=== PATIENT | female | born 1985 | race Caucasian/White ===

== ENCOUNTER 2016-12-08 08:45 | Emergency (ER) | payer OTHER ==
[~2016-12-08] VITALS: Ht 152.4 cm; Wt 62.5 kg
[~2016-12-08 08:45] MED LIST: HYDR-3498 PO; HYDR200T5 PO; LEVO500T10 PO; MYCO500T13 PO; POTA-57 PO; PRED5 PO
[2016-12-08 08:56] VITALS: Ht 152.4 cm; Wt 62.5 kg
[2016-12-08 09:27] LABS: URINE BLOOD (Dip) POC Trace-lysed (NEGATIVE)
[2016-12-08] MEDS ORDERED: NITR-58 PO (09:32)
[2016-12-08] MEDS ORDERED: FLUC150T17 PO (09:33)
[2016-12-08] MEDS ORDERED: PHEN-537 PO (09:33)
--- NOTE | 2016-12-08 09:42 | ERD ---
ER Documentation Chief Complaint Date/Time DATE: 12/08/16 TIME: 09:35 Chief Complaint painful urination x 3 days HPI Patient is a 31-year-old female with a history of lupus who presents to the ER with dysuria, urgency and bloating for 2 days. Denies hematuria. Denies CVA tenderness. Denies fever or chills. States that her last normal menstrual period was 11/17/16. She denies sexual activity. States that she has had white discharge and discomfort in her vagina. Denies pelvic pain, abdominal pain, nausea, vomiting or diarrhea. Denies chest pain, cough, shortness of breath or difficulty breathing. Denies leg pain or swelling. Denies recent travel or recent surgeries. Denies abnormal vaginal bleeding. ROS All systems reviewed and are negative except as per history of present illness. Medications Home Meds Active Scripts Fluconazole* (Diflucan*) 150 Mg Tablet, 150 MG PO ONCE, #1 TAB Prov:JANELLE YOUSIF PA-C 12/08/16 Phenazopyridine Hcl* (Pyridium*) 100 Mg Tab, 100 MG PO TID for 7 Days, TAB Prov:JANELLE YOUSIF PA-C 12/08/16 Nitrofurantoin Monohyd Macrocr* (Macrobid*) 100 Mg Capsr, 100 MG PO BID for 5 Days, CAP Prov:JANELLE YOUSIF PA-C 12/08/16 Levofloxacin* (Levofloxacin*) 500 Mg Tablet, 500 MG PO DAILY for 7 Days, TAB Prov:MARIA DE JESUS GUTIERRES MD 09/02/16 Hydrocodone Bit-Acetaminophen (Hydrocodone Bit-APAP) 5-325MG Tablet, 2 TAB PO Q6H Y for SEVERE PAIN LEVEL 7-10 for 7 Days, #42 TAB Prov:MARIA DE JESUS GUTIERRES MD 09/02/16 Reported Medications Hydroxychloroquine Sulfate* (Plaquenil*) 200 Mg Tab, 200 MG PO BID, TAB 08/31/16 Potassium Chloride* (Klor-Con*) 20 Meq Tabsr, 50 MEQ PO DAILY, TAB.SA 08/31/16 Prednisone* (Prednisone*) 5 Mg Tab, 5 MG PO DAILY, TAB 08/31/16 Mycophenolate Mofetil* (Cellcept*) 500 Mg Tablet, 3000 MG PO DAILY, TAB 08/31/16 Allergies Allergies: Coded Allergies: No Known Drug Allergy (Verified Allergy, Mild, 12/08/16) PMhx/Soc History of Surgery: Yes ( 10/2011) Anesthesia Reaction: No Hx Neurological Disorder: No Hx Respiratory Disorders: No Hx Cardiac Disorders: Yes (LLE DVT) Hx Psychiatric Problems: Yes (Anxiety) Hx Miscellaneous Medical Probl: Yes (Anemia, Lupus) Hx Alcohol Use: Yes (Occasionally) Hx Substance Use: No Hx Tobacco Use: No Smoking Status: Never smoker FmHx Family History: No coronary disease, No diabetes, No other Physical Exam Vitals Vital Signs Date Time Temp Pulse Resp B/P Pulse Ox O2 Delivery O2 Flow Rate FiO2 12/08/16 08:56 98.1 87 18 115/72 98 Physical Exam GENERAL: Well-developed, well-nourished female. Appears in no acute distress. HEAD: Normocephalic, atraumatic. LUNG: Clear to auscultation bilaterally. No rhonchi, wheezing, rales or coarse breath sounds. HEART: Regular rate and rhythm. No murmurs, rubs or gallops. ABDOMEN: No scars, ecchymosis or rashes noted. Soft, nontender, and nondistended. Positive bowel sounds in all four quadrants. No rebound tenderness , no guarding. (-) McBurneys point tenderness. No CVA tenderness. : no lesions or signs of infection. no swelling or erythema. white cottage cheese like discharge from vagina. no adnexal tenderness. Extremities: Equal pulses bilaterally. No peripheral clubbing, cyanosis or edema. No unilateral leg swelling. Results 24 hrs Laboratory Tests Test 12/08/16 09:29 Bedside Urine Blood Trace-lysed Bedside Urine Glucose (UA) Negative Bedside Urine Ketones (LAB) Negative Bedside Urine Leukocyte Esterase (L 1+ Bedside Urine Nitrite (LAB) Negative Bedside Urine Protein (LAB) 2+ Bedside Urine pH (LAB) 6.5 Procedures/MDM ER COURSE: I kept the patient and/or family informed of laboratory and diagnostic imaging results throughout the emergency room course. LAB INTERPRETATION: UA showed no nitrites, 1+ leukocytes and 2+ proteins. Urine test was negative. MEDICAL DECISION MAKING: This is a 31-year-old female who presents with dysuria, urgency and vaginal discharge. Vital signs were reviewed. Patient is afebrile. Patient is not hypoxic. Patient is not toxic or ill-appearing. Patient has a UTI. Low suspicion for ovarian torsion, PID, tuboovarian abscess, ectopic , bowel obstruction, pyelonephritis, appendicitis, cervicitis, septic , molar . Patient also likely has vulvovaginitis likely coty. DIAGNOSIS: 1. UTI 2. vulvovaginitis candidiasis DISCHARGE: At this time, patient is stable for discharge and outpatient management with no new complaints during the ER course. Patient was sent home with extubated, Pyridium and Diflucan. Patient will be discharged home with instructions to recheck for new or worsening symptoms such as fever, nausea, weakness, LOC and to follow up with primary care in the next 1-2 days. Patient was advised to return to the ER for any new or worsening symptoms. Plan was discussed and patient and/or family understands and agrees. Home instructions were given. Departure Diagnosis: Primary Impression: Dysuria Additional Impression: Vulvovaginal candidiasis Condition: Stable Patient Instructions: Dysuria Additional Instructions: Call your primary care doctor TOMORROW for an appointment during the next 1-2 days.See the doctor sooner or return here if your condition worsens before your appointment time. JANELLE YOUSIF PA-C Dec 08, 2016 09:42
[2016-12-08 09:52] VITALS: BP 112/78; PULSE 78; RESP 18; TEMP 98.5
== END 2016-12-08 09:53 | disposition home or self-care (01) ==
LOC: FTE 08:45
DX: R30.0 Dysuria (principal); B37.3 Candidiasis of vulva and vagina
CPT/HCPCS: 81003; Z7502; 99284

== ENCOUNTER 2017-03-21 10:21 | Emergency (ER) | payer OTHER ==
[~2017-03-21] VITALS: Wt 72.0 kg
[~2017-03-21 10:21] MED LIST changes: +FLUC150T17 PO; +NITR-58 PO; +PHEN-537 PO
[2017-03-21] MEDS ORDERED: NAPROXEN 500 MG TAB PO ONE (11:30)
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
[2017-03-21] MEDS ORDERED: NAPR-260 PO (13:01)
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
== END 2017-03-21 13:31 | disposition home or self-care (01) ==
LOC: FTE 10:21
DX: M54.5 Low back pain (principal); M25.512 Pain in left shoulder; M25.562 Pain in left knee; M25.561 Pain in right knee; Z04.3 Encounter for examination and observation following other accident
CPT/HCPCS: 71010; 72100; 73030; Z7502; Z7610

== ENCOUNTER 2017-05-18 18:22 | Emergency (ER) | payer OTHER ==
[~2017-05-18] VITALS: Ht 162.6 cm; Wt 61.5 kg
[~2017-05-18 18:22] MED LIST changes: +NAPR-260 PO
[2017-05-18 18:24] VITALS: Ht 162.6 cm; Wt 61.5 kg
[2017-05-18] MEDS ORDERED: IBUPROFEN 600 MG TAB PO ONE (20:30)
[2017-05-18 21:11] LABS: ADD UMIC YES; UR ASCORBIC ACID 20 mg/dL (NEGATIVE); UR BILIRUBIN (Dip) NEGATIVE (NEGATIVE); UR BLOOD (Dip) 1+ mg/dL (NEGATIVE); UR CLARITY SLIGHTLY CLOUDY (CLEAR); UR COLOR AMBER (YELLOW); UR GLUCOSE (Dip) NEGATIVE (NEGATIVE); UR KETONES (Dip) NEGATIVE (NEGATIVE); UR LEUKOCYTE ESTERASE (Dip) NEGATIVE Leu/ul (NEGATIVE); UR NITRITE (Dip) POSITIVE (NEGATIVE); UR RBC 8 /HPF (0-5); UR SPECIFIC GRAVITY (Dip) 1.019 (1.003-1.030); UR SQUAMOUS EPITHELIAL CELL MODERATE /HPF (FEW); UR TOTAL PROTEIN (Dip) 3+ mg/dl (NEGATIVE); UR UROBILINOGEN (Dip) 2+ mg/dL (NEGATIVE)
[2017-05-18] MEDS ORDERED: CEPHALEXIN 500 MG CAP PO ONE (21:30)
[2017-05-18] MEDS ORDERED: IBUP-1542 PO (21:44)
[2017-05-18] MEDS ORDERED: CEPH-443 PO (21:44)
--- NOTE | 2017-05-18 21:47 | ERD ---
ER Documentation Chief Complaint Date/Time DATE: 05/18/17 TIME: 21:45 Chief Complaint pelvic pain x 2 days, back pain HPI This 32-year-old female presents cents with pelvic pain for last 2 days. It is suprapubic and mildly radiates the right and the left. Patient denies any localized right lower quadrant pain right upper quadrant pain. She denies any fevers, vomiting. Patient had a normal bowel movement. Patient still treated with 1 dose of antibiotics from her previous UTI without relief and took Tylenol with minimal relief. ROS All systems reviewed and are negative except as per history of present illness. Medications Home Meds Active Scripts Cephalexin* (Keflex*) 500 Mg Capsule, 500 MG PO QID for 5 Days, CAP Prov:STUART REEVES MD 05/18/17 Ibuprofen* (Motrin*) 600 Mg Tab, 600 MG PO Q6, #15 TAB Prov:STUART REEVES MD 05/18/17 Naproxen* (Naprosyn*) 500 Mg Tablet, 500 MG PO BID Y for PAIN AND/OR INFLAMMATION, #30 TAB Prov:JANELLE YOUSIFC 03/21/17 Fluconazole* (Diflucan*) 150 Mg Tablet, 150 MG PO ONCE, #1 TAB Prov:JANELLE YOUSIFC 12/08/16 Phenazopyridine Hcl* (Pyridium*) 100 Mg Tab, 100 MG PO TID for 7 Days, TAB Prov:JANELLE YOUSIFC 12/08/16 Nitrofurantoin Monohyd Macrocr* (Macrobid*) 100 Mg Capsr, 100 MG PO BID for 5 Days, CAP Prov:JANELLE YOUSIFC 12/08/16 Levofloxacin* (Levofloxacin*) 500 Mg Tablet, 500 MG PO DAILY for 7 Days, TAB Prov:MARIA DE EJSUS GUTIERRES MD 09/02/16 Hydrocodone Bit-Acetaminophen (Hydrocodone Bit-APAP) 5-325MG Tablet, 2 TAB PO Q6H Y for SEVERE PAIN LEVEL 7-10 for 7 Days, #42 TAB Prov:MARIA DE JESUS GUTIERRES MD 09/02/16 Reported Medications Hydroxychloroquine Sulfate* (Plaquenil*) 200 Mg Tab, 200 MG PO BID, TAB 08/31/16 Potassium Chloride* (Klor-Con*) 20 Meq Tabsr, 50 MEQ PO DAILY, TAB.SA 08/31/16 Prednisone* (Prednisone*) 5 Mg Tab, 5 MG PO DAILY, TAB 08/31/16 Mycophenolate Mofetil* (Cellcept*) 500 Mg Tablet, 3000 MG PO DAILY, TAB 08/31/16 Allergies Allergies: Coded Allergies: No Known Drug Allergy (Verified Allergy, Mild, 12/08/16) PMhx/Soc History of Surgery: Yes ( 10/2011) Anesthesia Reaction: No Hx Neurological Disorder: No Hx Respiratory Disorders: No Hx Cardiac Disorders: Yes (LLE DVT) Hx Psychiatric Problems: Yes (Anxiety) Hx Miscellaneous Medical Probl: Yes (Anemia, Lupus) Hx Alcohol Use: Yes (Occasionally) Hx Substance Use: No Hx Tobacco Use: No Smoking Status: Never smoker Physical Exam Vitals Vital Signs Date Time Temp Pulse Resp B/P Pulse Ox O2 Delivery O2 Flow Rate FiO2 05/18/17 18:24 99.8 98 20 109/68 100 Physical Exam Const: [] Alert, [id number] per Head: Atraumatic Eyes: Normal Conjunctiva ENT: Normal External Ears, Nose and Mouth. Neck: Full range of motion..~ No meningismus. Resp: Clear to auscultation bilaterally Cardio: Regular rate and rhythm, no murmurs Abd: Soft, non tender, non distended. Normal bowel sounds. Minimal suprapubic or lower pelvic tenderness without tenderness at McBurney's point and no rebound and no Pop sign. Skin: No petechiae or rashes Back: No midline or flank tenderness Ext: No cyanosis, or edema Neur: Awake and alert Psych: Normal Mood and Affect Results 24 hrs Laboratory Tests Test 05/18/17 20:30 Urine Color JASE Urine Clarity SLIGHTLY CLOUDY Urine pH 7.0 Urine Specific [place] 1.019 Urine Ketones NEGATIVEmg/dL Urine Nitrite POSITIVEmg/dL Urine Bilirubin NEGATIVEmg/dL Urine Urobilinogen 2+mg/dL Urine Leukocyte Esterase NEGATIVELeu/ul Urine Microscopic RBC 8/HPF Urine Microscopic WBC 7/HPF Urine Squamous Epithelial Cells MODERATE/HPF Urine Hemoglobin 1+mg/dL Urine Glucose NEGATIVEmg/dL Urine Total Protein 3+mg/dl Current Medications Medications (Trade) Dose Ordered Sig/Damaso Route PRN Reason Start Time Stop Time Status Last Admin Dose Admin Ibuprofen (Motrin) 600 mg ONCE ONCE PO 05/18/17 20:30 05/18/17 20:31 DC 05/18/17 20:55 Cephalexin (Keflex) 500 mg ONCE ONCE PO 05/18/17 21:30 05/18/17 21:31 DC 05/18/17 21:42 Procedures/MDM Pelvic ultrasound shows corpus luteum cyst without acute abnormalities. Urine shows positive leukocytes, nitrites and bacteria. HCG is negative. Patient was given ibuprofen and Keflex in the ED. Patient has pelvic pain of uncertain etiology. Urine was sent for gonorrhea chlamydia. Patient may have mittelschmerz as it is 2 weeks after her period. Patient will be discharged home with prescription ibuprofen and Keflex and instructed to recheck for fevers , vomiting, right upper quadrant abdominal pain, new worsening symptoms with primary care doctor this week. Current signs and symptoms do not suggest tubo- ovarian abscess, appendicitis, ovarian torsion, ectopic , acute abdomen , additional causes of acute pelvic pain. Departure Diagnosis: Primary Impression: UTI (urinary tract infection) Urinary tract infection type: acute cystitis Hematuria presence: without hematuria Qualified Code: N30.00 - Acute cystitis without hematuria Additional Impression: Acute pain in female pelvis Condition: Stable Patient Instructions: Understanding Urinary Tract Infections (UTIs), Pelvic Pain, Unknown Cause Additional Instructions: Ultrasound shows no acute abnormalities. Urine shows signs of infection. We will treat for this. Recheck for fevers, vomiting, pain in the right lower abdomen, new worsening symptoms STUART REEVES MD May 18, 2017 21:46
--- NOTE | 2017-05-18 22:08 | RADRPT ---
PROCEDURE: US Pelvis. CLINICAL INDICATION: Pelvic pain TECHNIQUE: Multiple sonographic images of the pelvis were obtained utilizing a transabdominal and endovaginal technique. The images were reviewed on a PACS workstation. COMPARISON: None available FINDINGS: Uterus: Normal in size, contour and echogenicity with no evidence for myometrial masses. Size is est imated at 7.4 x 5.4 x 4.5 cm. Cervix: No abnormalities of significance are seen. Endometrium: Normal in thickness for the patient's age; 13.9 mm. Heterogeneous echotexture with nor mal blood flow on Doppler interrogation. Right ovary / adnexa: Normal in size estimated at 3.1 x 2.2 x 2 cm. No evidence for masses, normal blood flow on Doppler interrogation. Simple appearing ovarian cyst measures approximately 2 cm poss ibly corpus luteum. Left ovary/adnexa: Normal in size estimated at 4.2 x 2.4 x 2.2 cm. No evidence for solid masses, no rmal blood flow on Doppler interrogation. Cul-de-sac: No evidence of free fluid. RPTAT:HJJR IMPRESSION: Approximately 2 cm right ovarian cyst, otherwise unremarkable pelvic ultrasound. Physician Amy Date Time Electronically viewed and signed by Physician Amy on 05/18/2017 22:08 JR/
== END 2017-05-18 22:10 | disposition home or self-care (01) ==
LOC: FTE 18:22
DX: N30.00 Acute cystitis without hematuria (principal)
CPT/HCPCS: 76830; 76856; 81001; 87086; 87591; Z7502; Z7610

== ENCOUNTER 2017-07-25 16:24 | Emergency (ER) | payer OTHER ==
[~2017-07-25] VITALS: Ht 152.4 cm; Wt 62.0 kg
[~2017-07-25 16:24] MED LIST changes: +BUTA1CAP39 PO; +CEPH-443 PO; +IBUP-1542 PO; +ONDA4TAB14 PO; -PRED5 PO; +PRED5TAB PO
[2017-07-25 16:33] VITALS: Ht 152.4 cm; Wt 62.0 kg
[2017-07-25] MEDS ORDERED: ONDANSETRON 4 MG INJ IV STA (18:04)
[2017-07-25] MEDS ORDERED: KETOROLAC 30 MG INJ IV STA (18:04)
--- NOTE | 2017-07-25 18:26 | ERD ---
ER Documentation Chief Complaint Date/Time DATE: 07/25/17 TIME: 18:24 Chief Complaint pt bib self with c/o headache x 1 wk, HPI 32-year-old female with history of lupus resents with headache for 1 week now. She describes as sharp, intermittent, mild to moderate with intermittent visual changes, she complains of blurry vision". She was seen on July [address] scan of the brain was negative for any acute abnormalities. She reports that she was previously taking losartan potassium 50 mg daily for her blood pressure, she ran out of the medication 2 weeks ago and has not been able to follow-up with her primary care doctor. She has been taking her lupus medications regularly. She reports having received a prescription for Fioricet but it made her too dizzy. ROS All systems reviewed and are negative except as per history of present illness. Medications Home Meds Active Scripts Losartan Potassium* (Losartan Potassium*) 50 Mg Tablet, 50 MG PO DAILY, #30 TAB Prov:LULU HALEY PA-C 07/25/17 Cholecalciferol* (Vitamin D*) 400 Unit Tablet, 800 UNIT PO DAILY, #60 TAB Prov:LULU HALEY PA-C 07/25/17 Ondansetron (Ondansetron Odt) 4 Mg Tab.rapdis, 4 MG PO Q8 Y for NAUSEA AND/OR VOMITING, #30 TAB Prov:DENIS BROWN NP 07/19/17 Cehqqladewwhq-Vpgqmcnefq-Wwbqwguh-Codeine* (Fioricet w/ Codeine*) [id number] 30MG Capsule, 1 CAP PO Q6H Y for PAIN LEVEL 1-5, #20 CAP Prov:DENIS BROWN NP 07/19/17 Cephalexin* (Keflex*) 500 Mg Capsule, 500 MG PO QID for 5 Days, CAP Prov:STUART REEVES MD 05/18/17 Ibuprofen* (Motrin*) 600 Mg Tab, 600 MG PO Q6, #15 TAB Prov:STUART REEVES MD 05/18/17 Naproxen* (Naprosyn*) 500 Mg Tablet, 500 MG PO BID Y for PAIN AND/OR INFLAMMATION, #30 TAB Prov:JANELLE YOUSIF PA-C 03/21/17 Fluconazole* (Diflucan*) 150 Mg Tablet, 150 MG PO ONCE, #1 TAB Prov:JANELLE YOUSIF PA-C 12/08/16 Phenazopyridine Hcl* (Pyridium*) 100 Mg Tab, 100 MG PO TID for 7 Days, TAB Prov:JANELLE YOUSIF PA-C 12/08/16 Nitrofurantoin Monohyd Macrocr* (Macrobid*) 100 Mg Capsr, 100 MG PO BID for 5 Days, CAP Prov:JANELLE YOUSIF PA-C 12/08/16 Levofloxacin* (Levofloxacin*) 500 Mg Tablet, 500 MG PO DAILY for 7 Days, TAB Prov:MARIA DE JESUS GUTIERRES MD 09/02/16 Hydrocodone Bit-Acetaminophen (Hydrocodone Bit-APAP) 5-325MG Tablet, 2 TAB PO Q6H Y for SEVERE PAIN LEVEL 7-10 for 7 Days, #42 TAB Prov:MARIA DE JESUS GUTIERRES MD 09/02/16 Reported Medications Hydroxychloroquine Sulfate* (Plaquenil*) 200 Mg Tab, 200 MG PO BID, TAB 08/31/16 Potassium Chloride* (Klor-Con*) 20 Meq Tabsr, 50 MEQ PO DAILY, TAB.SA 08/31/16 Prednisone* (Prednisone*) 5 Mg Tab, 5 MG PO DAILY, TAB 08/31/16 Mycophenolate Mofetil* (Cellcept*) 500 Mg Tablet, 3000 MG PO DAILY, TAB 08/31/16 Allergies Allergies: Coded Allergies: No Known Drug Allergy (Verified Allergy, Mild, 12/08/16) PMhx/Soc History of Surgery: Yes ( 10/2011) Anesthesia Reaction: No Hx Neurological Disorder: No Hx Respiratory Disorders: No Hx Cardiac Disorders: Yes (LLE DVT) Hx Psychiatric Problems: Yes (Anxiety) Hx Miscellaneous Medical Probl: Yes (Anemia,Lupus) Hx Alcohol Use: Yes (Occasionally) Hx Substance Use: No Hx Tobacco Use: No Physical Exam Vitals Vital Signs Date Time Temp Pulse Resp B/P Pulse Ox O2 Delivery O2 Flow Rate FiO2 07/25/17 16:33 98.3 64 16 114/64 98 Physical Exam General: Well-developed, well-nourished. The patient appears in no acute distress. HEENT: Head is normocephalic, atraumatic. Neck: Supple. Nontender. Lungs: Clear to auscultation. Normal air movement. Heart: Regular rate and rhythm. S1 and S2 are normal. No murmurs, gallops, or rubs. Abdomen: Soft, nontender, nondistended. Bowel sounds are normoactive. Extremities: No clubbing or cyanosis. Normal pulses. Moving extremities x 4. No weakness. Neuro: M/S: Alert and oriented Face: EOMI, CN II-XII grossly intact Motor: Normal strength throughout Sensation: Normal sensation throughout Speech: Normal Cerebel: Normal coordination Normal gait Normal finger to nose DTR: 2+ and symmetric upper/lower extremities Skin: Normal turgor. No rash or lesions. Result Diagram: 07/25/17181907/25/171819 Results 24 hrs Laboratory Tests Test 07/25/17 18:20 White Blood Count 6.010^3/ul Red Blood Count 3.7610^6/ul Hemoglobin 12.4g/dl Hematocrit 35.9% Mean Corpuscular Volume 95.5fl Mean Corpuscular Hemoglobin 33.0pg Mean Corpuscular Hemoglobin Concent 34.5g/dl Red Cell Distribution Width 12.7% Platelet Count 13633^3/UL Mean Platelet Volume 12.0fl Neutrophils % 66.4% Lymphocytes % 21.1% Monocytes % 10.1% Eosinophils % 1.8% Basophils % 0.3% Nucleated Red Blood Cells % 0.0/100WBC Neutrophils # 4.010^3/ul Lymphocytes # 1.310^3/ul Monocytes # 0.610^3/ul Eosinophils # 0.110^3/ul Basophils # 0.010^3/ul Nucleated Red Blood Cells # 0.010^3/ul Sodium Level 136mmol/L Potassium Level 3.6mmol/L Chloride Level 107mmol/L Carbon Dioxide Level 30mmol/L Anion Gap 3 Blood Urea Nitrogen 10mg/dl Creatinine 0.79mg/dl Glucose Level 92mg/dl Calcium Level 7.3mg/dl Current Medications Medications (Trade) Dose Ordered Sig/Damaso Route PRN Reason Start Time Stop Time Status Last Admin Dose Admin Sodium Chloride (NS) 1,000 ml @ 1,000 mls/hr Q1H ONCE IV 07/25/17 18:30 07/25/17 19:29 07/25/17 18:31 Ondansetron HCl (Zofran Inj) 4 mg ONCE STAT IV 07/25/17 18:04 07/25/17 18:07 DC 07/25/17 18:31 Ketorolac Tromethamine (Toradol) 30 mg ONCE STAT IV 07/25/17 18:04 07/25/17 18:07 DC 07/25/17 18:31 Procedures/MDM Course: Patient had an IV line established, she was given Toradol 30 mg IV, Zofran 4 mg IV fluid bolus normal saline 1 L. Medical decision makin-year-old female presents with headache for a week now, patient presents with likely migraine headache. She had a CT scan on the of this month that was unremarkable. She is concerned about her electrolytes because she has not been taking her lovastatin which also includes potassium him a patient's history includes hypo-kalemia, however her labs today are normal. She does have some mild hypocalcemia, she states she also ran out of her vitamin D so she will get a refill of this as well as her losartan. She was given Toradol, fluids and Zofran for symptoms are worse with feeling much better at this time is stable for discharge. I doubt subarachnoid hemorrhage, mass, intracranial hemorrhage, encephalitis, meningitis. Regarding her EMR, and her normal neurologic examination I do not believe the patient warrants a repeat scan of the head at this time Departure Diagnosis: Primary Impression: Headache Additional Impression: Medication refill Condition: LULU Seymour PA-C Jul 25, 2017 18:26
[2017-07-25] MEDS ORDERED: SOD CHLORIDE 0.9% 1,000 ML IV ONE (18:30)
[2017-07-25 18:32] LABS: BASOPHILS % 0.3 % (0.0-2.0); EOSINOPHILS # 0.1 10^3/ul (0.0-0.5); EOSINOPHILS % 1.8 % (0.0-7.0); HEMATOCRIT 35.9 % (37.0-47.0); HEMOGLOBIN 12.4 g/dl (12.0-16.0); LYMPHOCYTES # 1.3 10^3/ul (0.8-2.9); LYMPHOCYTES % 21.1 % (15.0-51.0); MEAN CORPUSCULAR HGB CONC 34.5 g/dl (32.0-37.0); MEAN CORPUSCULAR VOLUME 95.5 fl (82.0-101.0); MONOCYTE # 0.6 10^3/ul (0.3-0.9); MONOCYTES % 10.1 % (0.0-11.0); NEUTROPHILS % 66.4 % (39.0-77.0); PLATELET COUNT 109 10^3/UL (140-415); RED BLOOD COUNT 3.76 10^6/ul (4.20-5.40); RED CELL DISTRIBUTION WIDTH 12.7 % (11.5-14.5)
[2017-07-25 18:51] LABS: CALCIUM 7.3 mg/dl (8.4-10.2); CREATININE 0.79 mg/dl (0.44-1.00); POTASSIUM 3.6 mmol/L (3.5-5.1)
[2017-07-25] MEDS ORDERED: CHOL400T10 PO (19:04)
[2017-07-25] MEDS ORDERED: LOSA50TA6 PO (19:04)
== END 2017-07-25 19:35 | disposition home or self-care (01) ==
LOC: FTE 16:24
DX: R51 Headache (principal); Z76.0 Encounter for issue of repeat prescription
CPT/HCPCS: 80048; 85025; 96374; 96375; J1885; J2405; J7030; Z7502

== ENCOUNTER 2017-09-12 14:30 | Emergency (ER) | payer OTHER ==
[~2017-09-12] VITALS: Wt 66.3 kg
[~2017-09-12 14:30] MED LIST changes: +CHOL400T10 PO; +LOSA50TA6 PO
--- NOTE | 2017-09-12 15:23 | ERD ---
ER Documentation Chief Complaint Chief Complaint abd pain, soraya le pain denies trauma, bodyaches HPI 32-year-old female with a history of lupus presents emergency department for complaints of intermittent, burning and sharp epigastric pain which she rates currently as a 9 out of 10 with associated bloating 3 days. She denies fever, chills, nausea, vomiting, diarrhea. Her last bowel movement was this morning and normal for her. She denies any dysuria or hematuria. States she has attempted to treat her symptoms with Gas-X with minimal improvement. States she was recently treated for lupus and is currently on prednisone. ROS All systems reviewed and are negative except as per history of present illness. Medications Home Meds Active Scripts Ferrous Sulfate* (Ferrous Sulfate*) 325 Mg Tabec, 325 MG PO BID for 30 Days, TAB Prov:LUCAS TODD PA-C 09/12/17 Famotidine* (Pepcid*) 20 Mg Tablet, 20 MG PO BID for 4 Days, TAB Prov:LUCAS TODD PA-C 09/12/17 Ondansetron (Ondansetron Odt) 4 Mg Tab.rapdis, 4 MG PO Q6H Y for NAUSEA AND/OR VOMITING, #20 TAB Prov:LUCAS TODD PA-C 09/12/17 Omeprazole* (Omeprazole*) 20 Mg Capsule.dr, 20 MG PO BID, #20 Prov:LUCAS TODD PA-C 09/12/17 Losartan Potassium* (Losartan Potassium*) 50 Mg Tablet, 50 MG PO DAILY, #30 TAB Prov:LULU HALEY PA-C 07/25/17 Cholecalciferol* (Vitamin D*) 400 Unit Tablet, 800 UNIT PO DAILY, #60 TAB Prov:LULU HALEY PA-C 07/25/17 Ondansetron (Ondansetron Odt) 4 Mg Tab.rapdis, 4 MG PO Q8 Y for NAUSEA AND/OR VOMITING, #30 TAB Prov:DENIS BROWN NP 07/19/17 Xpkbunabwrioi-Xkcuzfeglv-Ujtbscvu-Codeine* (Fioricet w/ Codeine*) [id number] 30MG Capsule, 1 CAP PO Q6H Y for PAIN LEVEL 1-5, #20 CAP Prov:DENIS BROWN NP 07/19/17 Cephalexin* (Keflex*) 500 Mg Capsule, 500 MG PO QID for 5 Days, CAP Prov:STUART REEVES MD 05/18/17 Ibuprofen* (Motrin*) 600 Mg Tab, 600 MG PO Q6, #15 TAB Prov:STUART REEVES MD 05/18/17 Naproxen* (Naprosyn*) 500 Mg Tablet, 500 MG PO BID Y for PAIN AND/OR INFLAMMATION, #30 TAB Prov:JANELLE YOUSIFC 03/21/17 Fluconazole* (Diflucan*) 150 Mg Tablet, 150 MG PO ONCE, #1 TAB Prov:JANELLE YOUSIF PA-C 12/08/16 Phenazopyridine Hcl* (Pyridium*) 100 Mg Tab, 100 MG PO TID for 7 Days, TAB Prov:JANELLE YOUSIFC 12/08/16 Nitrofurantoin Monohyd Macrocr* (Macrobid*) 100 Mg Capsr, 100 MG PO BID for 5 Days, CAP Prov:JANELLE YOUSIFC 12/08/16 Levofloxacin* (Levofloxacin*) 500 Mg Tablet, 500 MG PO DAILY for 7 Days, TAB Prov:MARIA DE JESUS GUTIERRES MD 09/02/16 Hydrocodone Bit-Acetaminophen (Hydrocodone Bit-APAP) 5-325MG Tablet, 2 TAB PO Q6H Y for SEVERE PAIN LEVEL 7-10 for 7 Days, #42 TAB Prov:MARIA DE JESUS GUTIERRES MD 09/02/16 Reported Medications Hydroxychloroquine Sulfate* (Plaquenil*) 200 Mg Tab, 200 MG PO BID, TAB 08/31/16 Potassium Chloride* (Klor-Con*) 20 Meq Tabsr, 50 MEQ PO DAILY, TAB.SA 08/31/16 Prednisone* (Prednisone*) 5 Mg Tab, 5 MG PO DAILY, TAB 08/31/16 Mycophenolate Mofetil* (Cellcept*) 500 Mg Tablet, 3000 MG PO DAILY, TAB 08/31/16 Allergies Allergies: Coded Allergies: No Known Drug Allergy (Verified Allergy, Mild, 09/12/17) PMhx/Soc History of Surgery: Yes ( 10/2011) Anesthesia Reaction: No Hx Neurological Disorder: No Hx Respiratory Disorders: No Hx Cardiac Disorders: Yes (LLE DVT) Hx Psychiatric Problems: Yes (Anxiety) Hx Miscellaneous Medical Probl: Yes (Anemia,Lupus) Hx Alcohol Use: Yes (Occasionally) Hx Substance Use: No Hx Tobacco Use: No Physical Exam Vitals Vital Signs Date Time Temp Pulse Resp B/P Pulse Ox O2 Delivery O2 Flow Rate FiO2 09/12/17 14:32 98.3 76 20 143/99 99 Physical Exam Const: Developed, well-nourished, no acute distress Head: Atraumatic Eyes: Normal Conjunctiva ENT: Normal External Ears, Nose and Mouth. Neck: Full range of motion..~ No meningismus. Resp: Clear to auscultation bilaterally Cardio: Regular rate and rhythm, no murmurs Abd: Soft, non distended. Normal bowel sounds. Positive mild right upper quadrant tenderness to palpation. Negative McBurney's point tenderness. No rebound tenderness. No peritoneal signs. Skin: No petechiae or rashes Back: No midline or flank tenderness Ext: No cyanosis, or edema Neur: Awake and alert Psych: Normal Mood and Affect Result Diagram: 09/12/17 1610 09/12/17 1610 Results 24 hrs Laboratory Tests Test 09/12/17 15:05 09/12/17 16:10 Urine Color YELLOW Urine Clarity CLEAR Urine pH 6.0 Urine Specific Mutual 1.023 Urine Ketones NEGATIVEmg/dL Urine Nitrite NEGATIVEmg/dL Urine Bilirubin NEGATIVEmg/dL Urine Urobilinogen NEGATIVEmg/dL Urine Leukocyte Esterase NEGATIVELeu/ul Urine Microscopic RBC 15/HPF Urine Microscopic WBC 10/HPF Urine Squamous Epithelial Cells FEW/HPF Urine Hemoglobin 1+mg/dL Urine Glucose NEGATIVEmg/dL Urine Total Protein 3+mg/dl White Blood Count 7.010^3/ul Red Blood Count 3.2810^6/ul Hemoglobin 10.5g/dl Hematocrit 32.5% Mean Corpuscular Volume 99.1fl Mean Corpuscular Hemoglobin 32.0pg Mean Corpuscular Hemoglobin Concent 32.3g/dl Red Cell Distribution Width 13.6% Platelet Count 40008^3/UL Mean Platelet Volume 12.0fl Neutrophils % 70.7% Lymphocytes % 21.6% Monocytes % 7.6% Eosinophils % 0.0% Basophils % 0.0% Nucleated Red Blood Cells % 0.0/100WBC Neutrophils # 4.910^3/ul Lymphocytes # 1.510^3/ul Monocytes # 0.510^3/ul Eosinophils # 0.010^3/ul Basophils # 0.010^3/ul Nucleated Red Blood Cells # 0.010^3/ul Sodium Level 135mmol/L Potassium Level 4.0mmol/L Chloride Level 108mmol/L Carbon Dioxide Level 24mmol/L Anion Gap 7 Blood Urea Nitrogen 30mg/dl Creatinine 1.10mg/dl Glucose Level 95mg/dl Calcium Level 7.2mg/dl Total Bilirubin 0.0mg/dl Direct Bilirubin 0.00mg/dl Indirect Bilirubin 0.0mg/dl Aspartate Amino Transf (AST/SGOT) 18IU/L Alanine Aminotransferase (ALT/SGPT) 26IU/L Alkaline Phosphatase 55IU/L Total Protein 4.5g/dl Albumin 1.9g/dl Globulin 2.60g/dl Albumin/Globulin Ratio 0.73 Lipase 59U/L Current Medications Medications (Trade) Dose Ordered Sig/Damaso Route PRN Reason Start Time Stop Time Status Last Admin Dose Admin Miscellaneous Medication (Gi Cocktail (2)) 40 ml ONCE ONCE PO 09/12/17 15:30 09/12/17 15:31 DC 09/12/17 15:36 Acetaminophen/ Hydrocodone Bitart ([place] (5/325)) 1 tab ONCE ONCE PO 09/12/17 16:30 09/12/17 16:31 DC 09/12/17 16:23 Ondansetron HCl (Zofran Odt) 4 mg ONCE STAT ODT 09/12/17 16:16 09/12/17 16:17 DC 09/12/17 16:23 Procedures/MDM PROCEDURE: US Abdomen. CLINICAL INDICATION: abdominal pain TECHNIQUE: Multiple real-time images were acquired of the patient's right upper quadrant abdomen and retroperitoneum utilizing a high resolution transducer. COMPARISON: None FINDINGS: The liver demonstrates increase in echogenicity. The liver is normal in size and no focal solid lesions are seen. The liver measures 14.0 cm in length. The portal vein is patent with normal direction of flow. No intrahepatic biliary dilatation is seen. No gallstones are identified within the gallbladder. There is no pericholecystic fluid or gallbladder wall thickening. The common bile duct measures 3 mm in maximal dimension. Bases obscured by bowel gas. No free fluid is identified. The right kidney is normal in size, and demonstrate normal echogenicity and cortical thickness. The right kidney measures 11.3 cm in long dimension. There is no evidence of hydronephrosis. There are no kidney stones. RPTAT: KK IMPRESSION: Echogenic liver compatible with nonspecific parenchymal disease. No cholelithiasis or evidence for cholecystitis Physician Carina Date Time Electronically viewed and signed by Sean Marshall Physician on 09/12/2017 16 :20 ME/ CC: LUCAS TODD PA-C This is a 32-year-old female with a history of lupus who presents the emergency department for complaints of burning epigastric pain with associated bloating 3 days. Patient stated the pain is intermittent. Vital signs reviewed and within normal limits upon arrival. Patient denied fever chills nausea or vomiting associated with the pain. His equal exam with evidence of right upper quadrant tenderness to palpation. CBC showed no evidence of systemic infection or severe anemia. Patient with a hemoglobin measured at 10.5. She denies any active bleeding currently. Reports a history of anemia in the past. I will be treating her with ferrous sulfate and instructing her to follow-up with her primary care physician for repeat lab work studies. CMP showed no evidence of electrolyte abnormalities, severe acidosis, alkalosis , renal failure, or liver disease. Her creatinine slightly elevated. Lipase showed no evidence of acute pancreatitis. UA showed no evidence of acute infection. Hemoglobin 1+. Patient states she is due to start her menstrual cycle today. Urine test was negative. Ultrasound of the gallbladder negative for evidence of acute cholecystitis or renal calculi. History and physical exam consistent with anemia, burning epigastric abdominal pain, and bloating. Differential diagnosis includes but not limited to GERD, peptic ulcer disease, bleeding ulcer, cholecystitis, acute appendicitis, diverticulitis, pancreatitis, partial bowel obstruction, GI bleed, ectopic . CT of the abdomen was offered but joint decision was made to return home with strict return precautions. I recommended for the patient to return for a repeat abdominal exam in 8 hours if her symptoms should persist. I have recommended ferrous sulfate, antacid and nausea medication as well as hydration, rest, Motrin and Tylenol. Patient instructed to follow-up with primary care physician in 1-2 weeks for repeat laboratory exam. 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 I instructed for her to keep that appointment and recommended follow-up laboratory workup at that time to monitor her creatinine level. Return precautions discussed. Based on patient's history of present illness and physical examination the decision was made to discharge. The patient was re-evaluated after ED treatment and stabilizing measures, and symptoms have improved. There is no evidence of life threatening injuries or illnesses at this time. On re-examination, patient resting in no distress, stable vital signs, reports feeling better and safe for discharge with outpatient follow up with PMD in 1-2 days. Patient given return precautions. Departure Diagnosis: Primary Impression: Abdominal pain Abdominal location: epigastric Qualified Code: R10.13 - Epigastric pain LUCAS TODD PA-C Sep 12, 2017 15:23
[2017-09-12] MEDS ORDERED: LIDOCAINE/MYLANTA 40 ML BTL PO ONE (15:30)
[2017-09-12 16:05] LABS: ADD UMIC YES; UR ASCORBIC ACID NEGATIVE (NEGATIVE); UR BILIRUBIN (Dip) NEGATIVE (NEGATIVE); UR BLOOD (Dip) 1+ mg/dL (NEGATIVE); UR CLARITY CLEAR (CLEAR); UR COLOR YELLOW (YELLOW); UR GLUCOSE (Dip) NEGATIVE (NEGATIVE); UR KETONES (Dip) NEGATIVE (NEGATIVE); UR LEUKOCYTE ESTERASE (Dip) NEGATIVE Leu/ul (NEGATIVE); UR NITRITE (Dip) NEGATIVE (NEGATIVE); UR RBC 15 /HPF (0-5); UR SPECIFIC GRAVITY (Dip) 1.023 (1.003-1.030); UR SQUAMOUS EPITHELIAL CELL FEW /HPF (FEW); UR TOTAL PROTEIN (Dip) 3+ mg/dl (NEGATIVE); UR UROBILINOGEN (Dip) NEGATIVE (NEGATIVE)
[2017-09-12] MEDS ORDERED: ONDANSETRON (ODT) 4 MG TAB ODT STA (16:16)
--- NOTE | 2017-09-12 16:20 | RADRPT ---
PROCEDURE: US Abdomen. CLINICAL INDICATION: abdominal pain TECHNIQUE: Multiple real-time images were acquired of the patient's right upper quadrant abdomen a nd retroperitoneum utilizing a high resolution transducer. COMPARISON: None FINDINGS: The liver demonstrates increase in echogenicity. The liver is normal in size and no focal solid les ions are seen. The liver measures 14.0 cm in length. The portal vein is patent with normal direction of flow. No intrahepatic biliary dilatation is seen. No gallstones are identified within the gallbladder. There is no pericholecystic fluid or gallbladd er wall thickening. The common bile duct measures 3 mm in maximal dimension. Bases obscured by bowel gas. No free fluid is identified. The right kidney is normal in size, and demonstrate normal echogenicity and cortical thickness. The right kidney measures 11.3 cm in long dimension. There is no evidence of hydronephrosis. There are no kidney stones. RPTAT: KK IMPRESSION: Echogenic liver compatible with nonspecific parenchymal disease. No cholelithiasis or evidence for cholecystitis Physician Carina Date Time Electronically viewed and signed by Physician Carina on 09/12/2017 16:20 CO/
[2017-09-12 16:21] LABS: HEMATOCRIT 32.5 % (37.0-47.0); HEMOGLOBIN 10.5 g/dl (12.0-16.0); LYMPHOCYTES # 1.5 10^3/ul (0.8-2.9); LYMPHOCYTES % 21.6 % (15.0-51.0); MEAN CORPUSCULAR HGB CONC 32.3 g/dl (32.0-37.0); MEAN CORPUSCULAR VOLUME 99.1 fl (82.0-101.0); MONOCYTE # 0.5 10^3/ul (0.3-0.9); MONOCYTES % 7.6 % (0.0-11.0); NEUTROPHIL # 4.9 10^3/ul (1.6-7.5); NEUTROPHILS % 70.7 % (39.0-77.0); PLATELET COUNT 115 10^3/UL (140-415); RED BLOOD COUNT 3.28 10^6/ul (4.20-5.40); RED CELL DISTRIBUTION WIDTH 13.6 % (11.5-14.5)
[2017-09-12] MEDS ORDERED: HYDROCODONE/APAP (5/325) TAB PO ONE (16:30)
[2017-09-12 16:41] LABS: ALBUMIN 1.9 g/dl (3.3-4.9); ALBUMIN/GLOBULIN RATIO 0.73; CALCIUM 7.2 mg/dl (8.4-10.2); CREATININE 1.1 mg/dl (0.44-1.00); TOTAL PROTEIN 4.5 g/dl (6.1-8.1)
[2017-09-12] MEDS ORDERED: OMEP20CA16 PO (17:51)
[2017-09-12] MEDS ORDERED: FAMO-96 PO (17:51)
[2017-09-12] MEDS ORDERED: ONDA4TAB14 PO (17:51)
[2017-09-12] MEDS ORDERED: FER325 PO (17:56)
[2017-09-12 17:58] VITALS: BP 145/88; PULSE 78; RESP 18; TEMP 98.3
== END 2017-09-12 18:00 | disposition home or self-care (01) ==
LOC: FTE 14:30
DX: R10.13 Epigastric pain (principal)
CPT/HCPCS: 76705; 80053; 81001; 83690; 85025; Z7502; Z7610

== ENCOUNTER 2017-10-19 13:43 | Inpatient (IN) | payer OTHER ==
[~2017-10-19] VITALS: Ht 157.5 cm; Wt 69.7 kg
[~2017-10-19 13:43] MED LIST changes: +FAMO-96 PO; +FER325 PO; +OMEP20CA16 PO
[2017-10-19 13:45] VITALS: Ht 157.5 cm; Wt 69.7 kg
[2017-10-19] MEDS ORDERED: ONDANSETRON 4 MG INJ IV STA ×2 (15:21→18:12)
[2017-10-19] MEDS ORDERED: morphine 4 MG/ML VIAL IV STA ×2 (15:21→18:12)
[2017-10-19 15:26] LABS: BASOPHILS % 0.3 % (0.0-2.0); EOSINOPHILS # 0.1 10^3/ul (0.0-0.5); EOSINOPHILS % 1.3 % (0.0-7.0); HEMATOCRIT 28.5 % (37.0-47.0); HEMOGLOBIN 9.6 g/dl (12.0-16.0); LYMPHOCYTES # 1.8 10^3/ul (0.8-2.9); LYMPHOCYTES % 22.9 % (15.0-51.0); MEAN CORPUSCULAR HEMOGLOBIN 32.9 pg (29.0-33.0); MEAN CORPUSCULAR HGB CONC 33.7 g/dl (32.0-37.0); MEAN CORPUSCULAR VOLUME 97.6 fl (82.0-101.0); MEAN PLATELET VOLUME 11.3 fl (7.4-10.4); MONOCYTE # 0.8 10^3/ul (0.3-0.9); MONOCYTES % 10.5 % (0.0-11.0); NEUTROPHILS % 64.7 % (39.0-77.0); PLATELET COUNT 152 10^3/UL (140-415); RED BLOOD COUNT 2.92 10^6/ul (4.20-5.40); RED CELL DISTRIBUTION WIDTH 13.6 % (11.5-14.5); WHITE BLOOD COUNT 7.7 10^3/ul (4.8-10.8)
[2017-10-19 15:33] LABS: ADD UMIC YES; UR ASCORBIC ACID NEGATIVE (NEGATIVE); UR BILIRUBIN (Dip) NEGATIVE (NEGATIVE); UR BLOOD (Dip) 1+ mg/dL (NEGATIVE); UR CLARITY CLOUDY (CLEAR); UR COLOR YELLOW (YELLOW); UR GLUCOSE (Dip) NEGATIVE (NEGATIVE); UR KETONES (Dip) NEGATIVE (NEGATIVE); UR LEUKOCYTE ESTERASE (Dip) TRACE Leu/ul (NEGATIVE); UR NITRITE (Dip) NEGATIVE (NEGATIVE); UR RBC 16 /HPF (0-5); UR SQUAMOUS EPITHELIAL CELL FEW /HPF (FEW); UR TOTAL PROTEIN (Dip) 3+ mg/dl (NEGATIVE); UR UROBILINOGEN (Dip) NEGATIVE (NEGATIVE)
--- NOTE | 2017-10-19 15:42 | RADRPT ---
PROCEDURE: XR Chest. CLINICAL INDICATION: Shortness of breath TECHNIQUE: Single portable view of the chest was obtained COMPARISON: CR CHEST 03/21/2017; CR CHEST 04/05/2014; CR CHEST 02/11/2014 FINDINGS: The trachea is midline. The cardiac silhouette and pulmonary vascularity are within normal limits. T he lungs are clear. The costophrenic angles are sharp. IMPRESSION: 1. No evidence of acute cardiopulmonary disease. RPTAT: AAPP Physician Damián Date Time Electronically viewed and signed by Chrissie Storm Physician on 10/19/2017 15:42 JL/
[2017-10-19 15:47] LABS: ALBUMIN 1.6 g/dl (3.3-4.9); ALBUMIN/GLOBULIN RATIO 0.59; CALCIUM 6.8 mg/dl (8.4-10.2); CREATININE 1.77 mg/dl (0.44-1.00); POTASSIUM 4.3 mmol/L (3.5-5.1); TOTAL PROTEIN 4.3 g/dl (6.1-8.1)
--- NOTE | 2017-10-19 16:33 | RADRPT ---
PROCEDURE: CT ABDOMEN AND PELVIS WITHOUT CONTRAST. CLINICAL INDICATION: Abdominal pain TECHNIQUE: CT scan of the abdomen and pelvis without contrast was performed on a multidetector hig h-resolution CT scanner. The patient was scanned without intravenous contrast. Coronal and sagittal reformatted images were obtained from the axial source images. Images were reviewed on a high-resol [employer] PACS workstation. The total exam CTDI equals 12.9 mGy and the total exam DLP equals 655.3 mGy- cm. One or more of the following dose reduction techniques were used: Automated exposure control. Adjustment of the mA and/or kV according to patient size. Use of iterative reconstruction technique. DICOM images are available COMPARISON: None FINDINGS: CT abdomen: The lung bases are clear. The heart size is within limits. There is no significant pericardial effus ion. Hepatic morphology is within normal limits. No gross contour deforming masses. The gallbladder is wi thin normal limits. No evidence of intrahepatic or extrahepatic biliary dilatation. The spleen and pancreas are within normal limits. Both adrenal glands are within normal limits. Both kidneys are and normal anatomic position. No gross renal/ureteric calculi. No evidence of obstr uction or hydronephrosis. The visualized GI tract demonstrates normal caliber loops of small large bowel. No obstruction. The appendix is within normal limits. The unenhanced aorta is unremarkable. Several retroperitoneal lymph nodes are identified. CT pelvis: The bladder is within normal limits. The uterus is unremarkable. Nonspecific free fluid within pelvi s. The rectosigmoid colon demonstrate diverticulosis. There is generalized anasarca. Bilateral ingui nal lymphadenopathy is identified, with the largest on the left measuring up to 2.[address] large st on the right measuring up to 2.1 cm. Bilateral pelvic lymphadenopathy is noted as well, with the largest lymph node measuring 2.4 cm within the left external iliac chain. The visualized osseous structures appears to be within normal limits. IMPRESSION: 1. No evidence of acute intra-abdominal/pelvic inflammatory process. No evidence of bowel obstructio n. The appendix is within normal limits. 2. Generalized anasarca. 3. Bilateral pelvic and inguinal lymphadenopathy, with the largest lymph node measuring 2.1 cm withi n the bilateral inguinal regions and 2.4 cm along the left external iliac chain. Mild retroperitonea l lymphadenopathy is noted as well. Although findings may be reactive, cannot exclude the possibilit y of malignancy/lymphoma. Correlate with clinical findings. RPTAT: AAPP Chrissie Storm Physician Date Time Electronically viewed and signed by Chrissie Storm Physician on 10/19/2017 16:32 JL/
--- NOTE | 2017-10-19 16:43 | ERD ---
ER Documentation Chief Complaint Chief Complaint ap x weeks on and off HPI Is a 32-year-old female that presents to the ER with intermittent epigastric pain and bloating for the last month. Patient states that her stomach gets very bloated and she feels very full. She states that she even has difficulty in breathing because her stomach is so bloated. Patient was seen here a month ago and was given omeprazole, she said it helped with the epigastric pain, however she continues to remain bloated. Patient denies any chest pain. 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 Patient denies any nausea vomiting or diarrhea. She denies any fevers or chills. ROS 12 point review of systems was done, all negative except per HPI. Medications Home Meds Active Scripts Ferrous Sulfate* (Ferrous Sulfate*) 325 Mg Tabec, 325 MG PO BID for 30 Days, TAB Prov:LUCAS TODD PA-C 09/12/17 Famotidine* (Pepcid*) 20 Mg Tablet, 20 MG PO BID for 4 Days, TAB Prov:LUCAS TODD PA-C 09/12/17 Ondansetron (Ondansetron Odt) 4 Mg Tab.rapdis, 4 MG PO Q6H Y for NAUSEA AND/OR VOMITING, #20 TAB Prov:LUCAS TODD PA-C 09/12/17 Omeprazole* (Omeprazole*) 20 Mg Capsule.dr, 20 MG PO BID, #20 Prov:LUCAS TODD PA-C 09/12/17 Losartan Potassium* (Losartan Potassium*) 50 Mg Tablet, 50 MG PO DAILY, #30 TAB Prov:LULU HALEY PA-C 07/25/17 Cholecalciferol* (Vitamin D*) 400 Unit Tablet, 800 UNIT PO DAILY, #60 TAB Prov:LULU HALEY PA-C 07/25/17 Ondansetron (Ondansetron Odt) 4 Mg Tab.rapdis, 4 MG PO Q8 Y for NAUSEA AND/OR VOMITING, #30 TAB Prov:DENIS BROWN NP 07/19/17 Aboaupbjmxvlr-Wunwuakcpw-Mbwwtupn-Codeine* (Fioricet w/ Codeine*) [id number] 30MG Capsule, 1 CAP PO Q6H Y for PAIN LEVEL 1-5, #20 CAP Prov:DENIS BROWN NP 07/19/17 Cephalexin* (Keflex*) 500 Mg Capsule, 500 MG PO QID for 5 Days, CAP Prov:STUART REEVES MD 05/18/17 Ibuprofen* (Motrin*) 600 Mg Tab, 600 MG PO Q6, #15 TAB Prov:STUART REEVES MD 05/18/17 Naproxen* (Naprosyn*) 500 Mg Tablet, 500 MG PO BID Y for PAIN AND/OR INFLAMMATION, #30 TAB Prov:JANELLE YOUSIF-C 03/21/17 Fluconazole* (Diflucan*) 150 Mg Tablet, 150 MG PO ONCE, #1 TAB Prov:JANELLE YOUSIFC 12/08/16 Phenazopyridine Hcl* (Pyridium*) 100 Mg Tab, 100 MG PO TID for 7 Days, TAB Prov:JANELLE YOUSIF-C 12/08/16 Nitrofurantoin Monohyd Macrocr* (Macrobid*) 100 Mg Capsr, 100 MG PO BID for 5 Days, CAP Prov:JANELLE YOUSIF-C 12/08/16 Levofloxacin* (Levofloxacin*) 500 Mg Tablet, 500 MG PO DAILY for 7 Days, TAB Prov:MARIA DE JESUS GUTIERRES MD 09/02/16 Hydrocodone Bit-Acetaminophen (Hydrocodone Bit-APAP) 5-325MG Tablet, 2 TAB PO Q6H Y for SEVERE PAIN LEVEL 7-10 for 7 Days, #42 TAB Prov:MARIA DE JESUS GUTIERRES MD 09/02/16 Reported Medications Hydroxychloroquine Sulfate* (Plaquenil*) 200 Mg Tab, 200 MG PO BID, TAB 08/31/16 Potassium Chloride* (Klor-Con*) 20 Meq Tabsr, 50 MEQ PO DAILY, TAB.SA 08/31/16 Prednisone* (Prednisone*) 5 Mg Tab, 5 MG PO DAILY, TAB 08/31/16 Mycophenolate Mofetil* (Cellcept*) 500 Mg Tablet, 3000 MG PO DAILY, TAB 08/31/16 Allergies Allergies: Coded Allergies: No Known Drug Allergy (Verified Allergy, Mild, 10/19/17) PMhx/Soc History of Surgery: Yes ( 10/2011) Anesthesia Reaction: No Hx Neurological Disorder: No Hx Respiratory Disorders: No Hx Cardiac Disorders: Yes (LLE DVT) Hx Psychiatric Problems: Yes (Anxiety) Hx Miscellaneous Medical Probl: Yes (Anemia,Lupus) Hx Alcohol Use: Yes (Occasionally) Hx Substance Use: No Hx Tobacco Use: No Smoking Status: Never smoker Physical Exam Vitals Vital Signs Date Time Temp Pulse Resp B/P Pulse Ox O2 Delivery O2 Flow Rate FiO2 10/19/17 13:45 97.8 88 18 138/90 99 Physical Exam GENERAL: The patient is well developed and appropriate for usual state of health , in no apparent distress. HEENT: Atraumatic. Patient has erythema and dry skin to bilateral lower lobes. CHEST: Clear to auscultation bilaterally. There are no rales, wheezes or rhonchi. HEART: Regular rate and rhythm. No murmurs, clicks, rubs or gallops. ABDOMEN: Soft and distended. Good bowel sounds. No rebound or guarding. No gross peritonitis. No gross organomegaly or masses. No Pop sign or McBurney point tenderness. BACK: No midline or flank tenderness. NEURO: Alert and oriented. Cranial nerves II through XII are intact. Result Diagram: 10/19/17 1512 10/19/17 1512 Results 24 hrs Laboratory Tests Test 10/19/17 15:09 10/19/17 15:12 Urine Color YELLOW Urine Clarity CLOUDY Urine pH 6.0 Urine Specific [place] 1.020 Urine Ketones NEGATIVEmg/dL Urine Nitrite NEGATIVEmg/dL Urine Bilirubin NEGATIVEmg/dL Urine Urobilinogen NEGATIVEmg/dL Urine Leukocyte Esterase TRACELeu/ul Urine Microscopic RBC 16/HPF Urine Microscopic WBC 55/HPF Urine Squamous Epithelial Cells FEW/HPF Urine Hemoglobin 1+mg/dL Urine Glucose NEGATIVEmg/dL Urine Total Protein 3+mg/dl White Blood Count 7.710^3/ul Red Blood Count 2.9210^6/ul Hemoglobin 9.6g/dl Hematocrit 28.5% Mean Corpuscular Volume 97.6fl Mean Corpuscular Hemoglobin 32.9pg Mean Corpuscular Hemoglobin Concent 33.7g/dl Red Cell Distribution Width 13.6% Platelet Count 31240^3/UL Mean Platelet Volume 11.3fl Neutrophils % 64.7% Lymphocytes % 22.9% Monocytes % 10.5% Eosinophils % 1.3% Basophils % 0.3% Nucleated Red Blood Cells % 0.0/100WBC Neutrophils # 5.010^3/ul Lymphocytes # 1.810^3/ul Monocytes # 0.810^3/ul Eosinophils # 0.110^3/ul Basophils # 0.010^3/ul Nucleated Red Blood Cells # 0.010^3/ul Sodium Level 136mmol/L Potassium Level 4.3mmol/L Chloride Level 113mmol/L Carbon Dioxide Level 19mmol/L Anion Gap 8 Blood Urea Nitrogen 27mg/dl Creatinine 1.77mg/dl Glucose Level 80mg/dl Calcium Level 6.8mg/dl Total Bilirubin 0.0mg/dl Direct Bilirubin 0.00mg/dl Indirect Bilirubin 0.0mg/dl Aspartate Amino Transf (AST/SGOT) 21IU/L Alanine Aminotransferase (ALT/SGPT) 29IU/L Alkaline Phosphatase 54IU/L Total Protein 4.3g/dl Albumin 1.6g/dl Globulin 2.70g/dl Albumin/Globulin Ratio 0.59 Lipase 87U/L Current Medications Medications (Trade) Dose Ordered Sig/Damaso Route PRN Reason Start Time Stop Time Status Last Admin Dose Admin Morphine Sulfate (morphine) 4 mg ONCE STAT IV 10/19/17 15:21 10/19/17 15:22 DC 10/19/17 15:31 Ondansetron HCl (Zofran Inj) 4 mg ONCE STAT IV 10/19/17 15:21 10/19/17 15:22 DC 10/19/17 15:31 Departure Diagnosis: Primary Impression: Abdominal pain Condition: Stable BETO DIAZ Oct 19, 2017 16:43
[2017-10-19] MEDS ORDERED: LIDOCAINE/MYLANTA 40 ML BTL PO STA (18:12)
[2017-10-19] MEDS ORDERED: BELLADONNA/PHENOBARBITAL TAB PO STA (18:12)
--- NOTE | 2017-10-19 18:12 | ERD ---
ER Documentation Chief Complaint Chief Complaint ap x weeks on and off HPI This is a 32-year-old female presents to the emergency department complaining of epigastric pain has been intermittent for 1 month. Initially had been seen and evaluated in the emergency department the onset of her symptoms and was diagnosed with acute gastritis. She been given omeprazole which improved her symptoms. She states however that over the past several days the abdominal pain has significantly worsened with abdominal distention, and cramping diffuse pain. There is no alleviating or exacerbating factors. She has also been complaining of mild frequency urgency and dysuria. 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 She takes 5 mg of prednisone daily hydrochloride and vitamin D. She states she has had no swelling of her lower extremities. She has had generalized myalgias but no fevers or shaking or chills. She denies any chest pain or pressure that radiates the neck arm back or jaw. ROS All systems reviewed and are negative except as per history of present illness. Medications Home Meds Active Scripts Ferrous Sulfate* (Ferrous Sulfate*) 325 Mg Tabec, 325 MG PO BID for 30 Days, TAB Prov:LUCAS TODD PA-C 09/12/17 Famotidine* (Pepcid*) 20 Mg Tablet, 20 MG PO BID for 4 Days, TAB Prov:LUCAS TODD PA-C 09/12/17 Ondansetron (Ondansetron Odt) 4 Mg Tab.rapdis, 4 MG PO Q6H Y for NAUSEA AND/OR VOMITING, #20 TAB Prov:LUCAS TODD PA-C 09/12/17 Omeprazole* (Omeprazole*) 20 Mg Capsule.dr, 20 MG PO BID, #20 Prov:LUCAS TODD PA-C 09/12/17 Losartan Potassium* (Losartan Potassium*) 50 Mg Tablet, 50 MG PO DAILY, #30 TAB Prov:LULU HALEY PA-C 07/25/17 Cholecalciferol* (Vitamin D*) 400 Unit Tablet, 800 UNIT PO DAILY, #60 TAB Prov:LULU HALEY PA-C 07/25/17 Ondansetron (Ondansetron Odt) 4 Mg Tab.rapdis, 4 MG PO Q8 Y for NAUSEA AND/OR VOMITING, #30 TAB Prov:DNEIS BROWN NP 07/19/17 Jzvlmupebyxah-Shcuemcwwd-Nssetsnp-Codeine* (Fioricet w/ Codeine*) [id number] 30MG Capsule, 1 CAP PO Q6H Y for PAIN LEVEL 1-5, #20 CAP Prov:DENIS BROWN PERSONNEL COUNSELOR 07/19/17 Cephalexin* (Keflex*) 500 Mg Capsule, 500 MG PO QID for 5 Days, CAP Prov:STUART REEVES MD 05/18/17 Ibuprofen* (Motrin*) 600 Mg Tab, 600 MG PO Q6, #15 TAB Prov:STUART REEVES MD 05/18/17 Naproxen* (Naprosyn*) 500 Mg Tablet, 500 MG PO BID Y for PAIN AND/OR INFLAMMATION, #30 TAB Prov:JANELLE YOUSIF-C 03/21/17 Fluconazole* (Diflucan*) 150 Mg Tablet, 150 MG PO ONCE, #1 TAB Prov:JANELLE YOUSIFC 12/08/16 Phenazopyridine Hcl* (Pyridium*) 100 Mg Tab, 100 MG PO TID for 7 Days, TAB Prov:JANELLE YOUSIFC 12/08/16 Nitrofurantoin Monohyd Macrocr* (Macrobid*) 100 Mg Capsr, 100 MG PO BID for 5 Days, CAP Prov:JANELLE YOUSIFC 12/08/16 Levofloxacin* (Levofloxacin*) 500 Mg Tablet, 500 MG PO DAILY for 7 Days, TAB Prov:MARIA DE JESUS GUTIERRES MD 09/02/16 Hydrocodone Bit-Acetaminophen (Hydrocodone Bit-APAP) 5-325MG Tablet, 2 TAB PO Q6H Y for SEVERE PAIN LEVEL 7-10 for 7 Days, #42 TAB Prov:MARIA DE JESUS GUTIERRES MD 09/02/16 Reported Medications Hydroxychloroquine Sulfate* (Plaquenil*) 200 Mg Tab, 200 MG PO BID, TAB 08/31/16 Potassium Chloride* (Klor-Con*) 20 Meq Tabsr, 50 MEQ PO DAILY, TAB.SA 08/31/16 Prednisone* (Prednisone*) 5 Mg Tab, 5 MG PO DAILY, TAB 11/1/16 Mycophenolate Mofetil* (Cellcept*) 500 Mg Tablet, 3000 MG PO DAILY, TAB 08/31/16 Allergies Allergies: Coded Allergies: No Known Drug Allergy (Verified Allergy, Mild, 10/19/17) PMhx/Soc History of Surgery: Yes ( 10/2011) Anesthesia Reaction: No Hx Neurological Disorder: No Hx Respiratory Disorders: No Hx Cardiac Disorders: Yes (LLE DVT) Hx Psychiatric Problems: Yes (Anxiety) Hx Miscellaneous Medical Probl: Yes (Anemia,Lupus) Hx Alcohol Use: Yes (Occasionally) Hx Substance Use: No Hx Tobacco Use: No Smoking Status: Never smoker Physical Exam Vitals Vital Signs Date Time Temp Pulse Resp B/P Pulse Ox O2 Delivery O2 Flow Rate FiO2 10/19/17 17:49 98.0 88 18 132/90 100 Room Air 10/19/17 13:45 97.8 88 18 138/90 99 Physical Exam Constitutional:Well-developed. Well-nourished. HEENT:Normocephalic. Atraumatic.Pupils were equal round reactive to light. Moist mucous membranes.No tonsillar exudates. Neck: No nuchal rigidity. No lymphadenopathy. No posterior cervical spine tenderness or step-offs. Respiratory: Not using accessory muscles of respiration.Lungs were clear to auscultation bilaterally. No rhonchi. No rales. No wheezing. Cardiovascular: Regular rate regular rhythm.No murmurs. No rubs were appreciated.S1, S2 normal. Distal pulses are palpable 2+ bilaterally. GI: Abdomen was soft. Tenderness of the left lower quadrant with no rebound my no guarding and abdominal distention with no fluid thrill. No pulsatile abdominal masses or bruits. No rebound. No guarding. Bowel sounds were present and normal. Muscle skeletal: Full range of motion of both the upper and lower extremities bilaterally.Normal muscle tone.No assymetrical calf tenderness or swelling. Skin: No petechia, no purpura. No lesions on the palms or the soles of the feet. No maculopapular rash. NEURO: Patient was alert, awake, orientated x3.No facial droop. Gait observed and normal with no ataxia.Speech had regular rate and rhythm. No focal neurological deficits. Result Diagram: 10/19/17 1512 10/19/17 1512 Results 24 hrs Laboratory Tests Test 10/19/17 15:09 10/19/17 15:12 Urine Color YELLOW Urine Clarity CLOUDY Urine pH 6.0 Urine Specific [place] 1.020 Urine Ketones NEGATIVEmg/dL Urine Nitrite NEGATIVEmg/dL Urine Bilirubin NEGATIVEmg/dL Urine Urobilinogen NEGATIVEmg/dL Urine Leukocyte Esterase TRACELeu/ul Urine Microscopic RBC 16/HPF Urine Microscopic WBC 55/HPF Urine Squamous Epithelial Cells FEW/HPF Urine Hemoglobin 1+mg/dL Urine Glucose NEGATIVEmg/dL Urine Total Protein 3+mg/dl White Blood Count 7.710^3/ul Red Blood Count 2.9210^6/ul Hemoglobin 9.6g/dl Hematocrit 28.5% Mean Corpuscular Volume 97.6fl Mean Corpuscular Hemoglobin 32.9pg Mean Corpuscular Hemoglobin Concent 33.7g/dl Red Cell Distribution Width 13.6% Platelet Count 91251^3/UL Mean Platelet Volume 11.3fl Neutrophils % 64.7% Lymphocytes % 22.9% Monocytes % 10.5% Eosinophils % 1.3% Basophils % 0.3% Nucleated Red Blood Cells % 0.0/100WBC Neutrophils # 5.010^3/ul Lymphocytes # 1.810^3/ul Monocytes # 0.810^3/ul Eosinophils # 0.110^3/ul Basophils # 0.010^3/ul Nucleated Red Blood Cells # 0.010^3/ul Sodium Level 136mmol/L Potassium Level 4.3mmol/L Chloride Level 113mmol/L Carbon Dioxide Level 19mmol/L Anion Gap 8 Blood Urea Nitrogen 27mg/dl Creatinine 1.77mg/dl Glucose Level 80mg/dl Calcium Level 6.8mg/dl Total Bilirubin 0.0mg/dl Direct Bilirubin 0.00mg/dl Indirect Bilirubin 0.0mg/dl Aspartate Amino Transf (AST/SGOT) 21IU/L Alanine Aminotransferase (ALT/SGPT) 29IU/L Alkaline Phosphatase 54IU/L Total Protein 4.3g/dl Albumin 1.6g/dl Globulin 2.70g/dl Albumin/Globulin Ratio 0.59 Lipase 87U/L Current Medications Medications (Trade) Dose Ordered Sig/Damaso Route PRN Reason Start Time Stop Time Status Last Admin Dose Admin Morphine Sulfate (morphine) 4 mg ONCE STAT IV 10/19/17 15:21 10/19/17 15:22 DC 10/19/17 15:31 Ondansetron HCl (Zofran Inj) 4 mg ONCE STAT IV 10/19/17 15:21 10/19/17 15:22 DC 10/19/17 15:31 Procedures/MDM This patient presented to the emergency department with abdominal pain and was seen and evaluated by myself. My differential diagnosis included but was not limited to abdominal aortic aneurysm, appendicitis, pancreatitis, perforated peptic ulcer, perforated viscus, Boerhaaves syndrome or visceral pain such as diverticulitis, DKA, esophagitis, hepatitis or bowel obstruction. The patient was placed on a ekg monitor tech, continuous pulse oximetry, and IV access was established by nursing staff. She was given IV morphine and Zofran with no improvement of her symptoms. Therefore did feel is necessary to obtain a CT scan of the abdomen which indicated the following as this was reviewed by the radiologist and myself: 1. No evidence of acute intra-abdominal/pelvic inflammatory process. No evidence of bowel obstruction. The appendix is within normal limits. 2. Generalized anasarca. 3. Bilateral pelvic and inguinal lymphadenopathy, with the largest lymph node measuring 2.1 cm within the bilateral inguinal regions and 2.4 cm along the left external iliac chain. Mild retroperitoneal lymphadenopathy is noted as well. Although findings may be reactive, cannot exclude the possibility of malignancy/lymphoma. Correlate with clinical findings. The patient had a urinary tract infection with protein in her urine which could be concerning for lupus nephritis. Given the findings on the patient's CT scan with her clinical symptoms I did feel she required admission for observation for pain management and I did feel the patient's lymphadenopathy seen on the CT scan was more likely result of her nephritis versus a malignancy or lymphoma but this will be followed up with upon admission. The patient will be admitted to the hospitalist Dr. Hodgson for observation. Urine cultures and blood cultures were obtained and the patient did receive a dose of IV ceftriaxone. Departure Diagnosis: Primary Impression: Lupus nephritis Additional Impressions: Intractable abdominal pain Urinary tract infection Urinary tract infection type: acute cystitis Hematuria presence: without hematuria Qualified Code: N30.00 - Acute cystitis without hematuria Condition: Serious ROLA DANGELO Oct 19, 2017 18:12
[2017-10-19] MEDS ORDERED: ONDANSETRON 4 MG INJ IV PRN (18:30)
[2017-10-19] MEDS ORDERED: ACETAMINOPHEN 325 MG TAB PO PRN ×2 (18:30→19:00)
[2017-10-19] MEDS ORDERED: CEFTRIAXONE 1 GM/50 ML (PMX) 50 ML IVPB ONE (18:30)
[2017-10-19] MEDS ORDERED: DOCUSATE SODIUM 100 MG CAP PO PRN (19:00)
[2017-10-19] MEDS: CEFTRIAXONE 1 GM/50 ML (PMX) 50 ML IVPB SCH (19:00)
[2017-10-19] MEDS ORDERED: NACL 0.9% 3 ML SYG IV SCH (19:00)
[2017-10-19] MEDS ORDERED: LORAZEPAM 2 MG INJ IV PRN (19:00)
[2017-10-19] MEDS ORDERED: NA PHOSPHATE/BIPHOS 133 ML ENEMA PR PRN (19:00)
[2017-10-19] MEDS ORDERED: MAGNESIUM HYDROXIDE 30ML CUP PO PRN (19:00)
[2017-10-19] MEDS ORDERED: ALBUTEROL/IPRATROPIUM (NEB) 3 ML AMP HHN PRN (19:00)
[2017-10-19] MEDS ORDERED: NITROGLYCERIN (SL) 0.4 MG TAB SL PRN (19:00)
[2017-10-19] MEDS ORDERED: hydrALAzine 20 MG INJ IV PRN (19:00)
[2017-10-19] MEDS: HEPARIN 5,000 UNIT/0.5 ML VIAL SC SCH (20:30)
[2017-10-19] MEDS: SOD CHLORIDE 0.45% 1,000 ML IV SCH (20:36)
[2017-10-20 05:01] VITALS: TEMP 97.9
[2017-10-20 05:36] LABS: BASOPHILS % 0.3 % (0.0-2.0); EOSINOPHILS # 0.1 10^3/ul (0.0-0.5); EOSINOPHILS % 2.3 % (0.0-7.0); HEMATOCRIT 29.8 % (37.0-47.0); HEMOGLOBIN 9.7 g/dl (12.0-16.0); LYMPHOCYTES # 1.4 10^3/ul (0.8-2.9); LYMPHOCYTES % 22.1 % (15.0-51.0); MEAN CORPUSCULAR HEMOGLOBIN 32.1 pg (29.0-33.0); MEAN CORPUSCULAR HGB CONC 32.6 g/dl (32.0-37.0); MEAN CORPUSCULAR VOLUME 98.7 fl (82.0-101.0); MEAN PLATELET VOLUME 11.6 fl (7.4-10.4); MONOCYTE # 0.7 10^3/ul (0.3-0.9); MONOCYTES % 11.1 % (0.0-11.0); PLATELET COUNT 145 10^3/UL (140-415); RED BLOOD COUNT 3.02 10^6/ul (4.20-5.40); RED CELL DISTRIBUTION WIDTH 13.4 % (11.5-14.5); WHITE BLOOD COUNT 6.2 10^3/ul (4.8-10.8)
[2017-10-20 06:01] LABS: CALCIUM 6.9 mg/dl (8.4-10.2); CREATININE 1.67 mg/dl (0.44-1.00); MAGNESIUM 2.4 mg/dl (1.7-2.5); PHOSPHORUS 5.4 mg/dl (2.5-4.9); POTASSIUM 4.4 mmol/L (3.5-5.1)
[2017-10-20 06:07] VITALS: BP 121/75; PULSE 89; RESP 18
[2017-10-20] MEDS: PANTOPRAZOLE (EC) 40 MG TAB PO SCH (06:11)
[2017-10-20 06:25] LABS: CHOL/HDL RATIO 7.5 RATIO
[2017-10-20 06:53] LABS: THYROID STIMULATING HORMONE 12.7 MIU/L (0.465-4.680)
--- NOTE | 2017-10-20 06:59 | HP ---
Date/Time of Note Date/Time of Note DATE: 10/20/17 TIME: 06:53 Assessment/Plan Lines/Catheters Urinary Cath still in place: No Assessment/Plan Assessment/Plan 1. Epigastric abdominal pain: Likely from gastritis/PUD -CT abdomen/pelvis showed a bilateral pelvic and inguinal lymphadenopathy otherwise no acute findings -Lipase and LFTs within normal limits -She will be placed on PPI -We will consider GI consult if she continues to have pain 2. UTI -IV antibiotic -Follow-up culture results 3. Acute kidney injury -Possibly has a prerenal etiology as a result of decreased p.o. intake secondary to abdominal pain. Patient also was UTI. Lupus nephritis is also possibility given her history of SLE -IV fluid -Check urine electrolytes -Nephrology consult 4. History of lupus: On CellCept and prednisone -Continue meds 5. Metabolic acidosis, likely related to #3 and #2 -See above HPI/ROS Admit Date/Time Admit Date/Time Oct 19, 2017 at 18:15 Hx of Present Illness This is a 32-year-old female with a history of lupus CellCept and prednisone, anemia of chronic disease who presented to the ER complaining of abdominal pain and bloating x several weeks, worsening for the past 2 weeks. She also reported a bilateral lower extremity swelling. Pain is mainly localized in the epigastric area. She was seen in the ER last month and was diagnosed with gastritis and discharged with omeprazole. She said initially her abdominal pain was slightly better but recently she noticed progressively worsening symptoms and as such she decided to come to the ER for evaluation. She reported nausea but no vomiting. Denied fever/chills, shortness of breath, chest pain or urinary symptoms. Denied decreased urine output. As far as her lupus is concerned, she had left kidney biopsy several years ago and was told no kidney involvement. When she presented to the ER, initial vitals were stable. Labs shows a creatinine of 1.7, bicarb 19, glucose 80. Urinalysis consistent with UTI and also was 3+ protein. PMH/Family/Social Past Surgical History Past Surgical Hx: no surgical history Social History Smoking Status: Never smoker Exam/Review of Systems Vital Signs Vitals Vital Signs Date Time Temp Pulse Resp B/P Pulse Ox O2 Delivery O2 Flow Rate FiO2 10/20/17 06:07 97.5 89 18 121/75 100 Room Air Intake and Output 10/19/17 10/19/17 10/20/17 15:00 23:00 07:00 Intake Total 700 ml Balance 700 ml Labs Result Diagram: 10/20/1752310/20/17 05 Medications Medications Current Medications Ondansetron HCl (Zofran Inj) 4 mg Q6H PRN IV NAUSEA AND/OR VOMITING; Start at 19:00 Acetaminophen (Tylenol Tab) 650 mg Q6H PRN PO PAIN LEVEL 1-3 OR FEVER; Start 10/19/17 at 19:00 Acetaminophen/ Hydrocodone Bitart ([place] (5/325)) 1 tab Q6H PRN PO MODERATE PAIN LEVEL 4-6; Start 10/19/17 at 19:00 Morphine Sulfate (morphine) 2 mg Q4H PRN IV SEVERE PAIN LEVEL 7-10; Start at 19:00 Docusate Sodium (Colace) 100 mg Q12H PRN PO CONSTIPATION; Start 10/19/17 at 19 :00 Magnesium Hydroxide (Milk Of Mag) 30 ml DAILY PRN PO CONSTIPATION; Start 10/19 at 19:00 Sodium Biphosphate/ Sodium Phosphate (Fleet Enema) 133 ml DAILY PRN [place] CONSTIPATION; Start 10/19/17 at 19:00 Pantoprazole (Protonix Tab) 40 mg DAILY@06 PO Last administered on 10/20/17 06:11; Admin Dose 40 MG; Start 10/20/17 at 06:00 Heparin Sodium (Porcine) 5000 unit 5,000 unit Q12 SC Last administered on 10/19 20:30; Admin Dose 5,000 UNIT; Start 10/19/17 at 21:00 Sodium Chloride (1/2 NS) 1,000 ml @ 75 mls/hr [id number] IV Last administered on 10/19/17 20:36; Admin Dose 75 MLS/HR; Start 10/19/17 at 18:54 Lorazepam (Ativan) 0.5 mg Q6H PRN IV ANXIETY; Start 10/19/17 at 19:00 Hydralazine HCl 10 mg 10 mg Q6H PRN IV ELEVATED BLOOD PRESSURE; Start at 19:00 Ceftriaxone Sodium (Rocephin) 50 ml @ 100 mls/hr Q24H IVPB ; Start 10/19/17 at 19:00 Nitroglycerin (Nitroglycerin (Sl Tab) 0.4 Mg) 1 tab Q5M PRN SL ANGINA; Start 10/19/17 at 19:00 TERRI BISHOP MD Oct 20, 2017 06:59
[2017-10-20 07:35] VITALS: BP 116/79; RESP 16
[2017-10-20] MEDS: HEPARIN 5,000 UNIT/0.5 ML VIAL SC SCH ×2 (08:03→20:56)
[2017-10-20] MEDS: SOD CHLORIDE 0.45% 1,000 ML IV SCH ×3 (08:10→21:32)
--- NOTE | 2017-10-20 08:43 | CONS ---
Date/Time of Note Date/Time of Note DATE: 10/20/17 TIME: 08:43 Assessment/Plan Assessment/Plan Additional Assessment/Plan 1. Acute kidney injury due to Prerenal azotemia 2. Possible lupus nephritis 3. 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 Hypertension 5. LE edema Plan: Thanks for consultaiton, will order 24 hr urine collection for protein and cretinine clearance XAVIER< ANCA.< ESR, CRP, Hepatitis panel, HIV RENAL US continue IVF NS will continue to follo wup Consultation Date/Type/Reason Admit Date/Time Oct 19, 2017 at 18:15 Date of Consultation: Oct 20, 2017 Type of Consultation: NEPHROLOGY Reason for Consultation acute kidney injury, rule out lupus nephritis, Metabolic acidosis Referring Provider: TERRI BISHOP MD Hx of Present Illness 32-year-old female with a history of lupus CellCept and prednisone, anemia of chronic disease who presented to the ER complaining of abdominal pain and bloating x several weeks, worsening for the past 2 weeks. She also reported a bilateral lower extremity swelling. Pain is mainly localized in the epigastric area. She was seen in the ER last month and was diagnosed with gastritis and discharged with omeprazole. She said initially her abdominal pain was slightly better but recently she noticed progressively worsening symptoms and as such she decided to come to the ER for evaluation. She reported nausea but no vomiting. Denied fever/chills, shortness of breath, chest pain or urinary symptoms. Denied decreased urine output. As far as her lupus is concerned, she had left kidney biopsy several years ago and was told no kidney involvement. When she presented to the ER, initial vitals were stable. Labs shows a creatinine of 1.7, bicarb 19, glucose 80. Urinalysis consistent with UTI and also was 3+ protein.Renal has been consulted for PINKY with BUN 27/Cr 1.7 Constitutional: no complaints Eyes: no complaints ENT: no complaints Respiratory: no complaints Cardiovascular: no complaints Gastrointestinal: constipation, nausea, vomiting Genitourinary: no complaints Musculoskeletal: no complaints Skin: no complaints Neurologic: no complaints Endocrine: no complaints Lymphatic: no complaints Psychological: no complaints Immunologic: no complaints Past Medical History Medical History: other (Lupus ) Past Surgical History Past Surgical Hx: no surgical history Family History Significant Family History: no pertinent family hx Social History Alcohol Use: none Smoking Status: Never smoker Drug Use: none Exam/Review of Systems Vital Signs Vitals Vital Signs Date Time Temp Pulse Resp B/P Pulse Ox O2 Delivery O2 Flow Rate FiO2 10/20/17 07:35 98.4 90 16 116/79 100 10/20/17 06:07 Room Air Intake and Output 10/19/17 10/19/17 10/20/17 14:59 22:59 06:59 Intake Total 700 ml Balance 700 ml Exam Constitutional: alert Psych: no complaints Head: normocephalic Eyes: nl conjunctiva ENMT: nl external ears & nose Neck: supple Respiratory: clear to auscultation, diminished breath sounds, normal air movement Cardiovascular: nl pulses, regular rate and rhythm Gastrointestinal: non-tender, soft Musculoskeletal: nl gait and stance, swelling (2-3+) Neurological: ELECTROCARDIOGRAPH REPAIRER II-XII intact, nl mental status, nl speech, nl strength Results Result Diagram: 10/20/1724 10/20/1724 Results 24 hrs Laboratory Tests Test 10/19/17 15:09 10/19/17 15:12 10/19/17 15:14 10/20/17 05:24 Urine Color YELLOW Urine Clarity CLOUDY A Urine pH 6.0 Urine Specific [place] 1.020 Urine Ketones NEGATIVE Urine Nitrite NEGATIVE Urine Bilirubin NEGATIVE Urine Urobilinogen NEGATIVE Urine Leukocyte Esterase TRACE A Urine Microscopic RBC 16 H Urine Microscopic WBC 55 H Urine Squamous Epithelial Cells FEW Urine Hemoglobin 1+ H Urine Glucose NEGATIVE Urine Total Protein 3+ H White Blood Count 7.7 6.2 Red Blood Count 2.92 L 3.02 L Hemoglobin 9.6 L 9.7 L Hematocrit 28.5 L 29.8 L Mean Corpuscular Volume 97.6 98.7 Mean Corpuscular Hemoglobin 32.9 32.1 Mean Corpuscular Hemoglobin Concent 33.7 32.6 Red Cell Distribution Width 13.6 13.4 Platelet Count 152 # 145 Mean Platelet Volume 11.3 H 11.6 H Neutrophils % 64.7 64.0 Lymphocytes % 22.9 22.1 Monocytes % 10.5 11.1 H Eosinophils % 1.3 2.3 Basophils % 0.3 0.3 Nucleated Red Blood Cells % 0.0 0.0 Neutrophils # 5.0 4.0 Lymphocytes # 1.8 1.4 Monocytes # 0.8 0.7 Eosinophils # 0.1 0.1 Basophils # 0.0 0.0 Nucleated Red Blood Cells # 0.0 0.0 Sodium Level 136 136 Potassium Level 4.3 4.4 Chloride Level 113 H 116 H Carbon Dioxide Level 19 L 16 L Anion Gap 8 8 Blood Urea Nitrogen 27 H 27 H Creatinine 1.77 H 1.67 H Glucose Level 80 67 #L Calcium Level 6.8 L 6.9 L Total Bilirubin 0.0 L Direct Bilirubin 0.00 Indirect Bilirubin 0.0 Aspartate Amino Transf (AST/SGOT) 21 Alanine Aminotransferase (ALT/SGPT) 29 Alkaline Phosphatase 54 Total Protein 4.3 L Albumin 1.6 L Globulin 2.70 Albumin/Globulin Ratio 0.59 Lipase 87 Free Thyroxine 0.72 L Phosphorus Level 5.4 H Magnesium Level 2.4 Triglycerides Level 404 H Cholesterol Level 233 H LDL Cholesterol, Calculated 121 HDL Cholesterol 31 L Cholesterol/HDL Ratio 7.5 Thyroid Stimulating Hormone (TSH) 12.700 H Medications Medications Current Medications Ondansetron HCl (Zofran Inj) 4 mg Q6H PRN IV NAUSEA AND/OR VOMITING; Start at 19:00 Acetaminophen (Tylenol Tab) 650 mg Q6H PRN PO PAIN LEVEL 1-3 OR FEVER; Start 10/19/17 at 19:00 Acetaminophen/ Hydrocodone Bitart ([place] (5/325)) 1 tab Q6H PRN PO MODERATE PAIN LEVEL 4-6; Start 10/19/17 at 19:00 Morphine Sulfate (morphine) 2 mg Q4H PRN IV SEVERE PAIN LEVEL 7-10; Start at 19:00 Docusate Sodium (Colace) 100 mg Q12H PRN PO CONSTIPATION; Start 10/19/17 at 19 :00 Magnesium Hydroxide (Milk Of Mag) 30 ml DAILY PRN PO CONSTIPATION; Start 10/19 at 19:00 Sodium Biphosphate/ Sodium Phosphate (Fleet Enema) 133 ml DAILY PRN [place] CONSTIPATION; Start 10/19/17 at 19:00 Pantoprazole (Protonix Tab) 40 mg DAILY@06 PO Last administered on 10/20/17 06:11; Admin Dose 40 MG; Start 10/20/17 at 06:00 Heparin Sodium (Porcine) 5000 unit 5,000 unit Q12 SC Last administered on 10/20 08:03; Admin Dose 5,000 UNIT; Start 10/19/17 at 21:00 Sodium Chloride (1/2 NS) 1,000 ml @ 75 mls/hr [id number] IV Last administered on 10/19/17t 20:36; Admin Dose 75 MLS/HR; Start 10/19/17 at 18:54 Lorazepam (Ativan) 0.5 mg Q6H PRN IV ANXIETY; Start 10/19/17 at 19:00 Hydralazine HCl 10 mg 10 mg Q6H PRN IV ELEVATED BLOOD PRESSURE; Start at 19:00 Ceftriaxone Sodium (Rocephin) 50 ml @ 100 mls/hr Q24H IVPB ; Start 10/19/17 at 19:00 Nitroglycerin (Nitroglycerin (Sl Tab) 0.4 Mg) 1 tab Q5M PRN SL ANGINA; Start 10/19/17 at 19:00 Citric Acid/ Sodium Citrate (Bicitra) 30 ml TID PO ; Start 10/20/17 at 09:00; Status ARTURO SALAS MD Oct 20, 2017 08:43
[2017-10-20] MEDS: CITRIC ACID/SODIUM CITRATE 15 ML CUP PO SCH ×3 (09:00→20:55)
[2017-10-20] MEDS: HYDROCODONE/APAP (5/325) TAB PO PRN (10:01)
[2017-10-20 11:02] LABS: URIC ACID 7.2 mg/dl (3.1-7.9)
[2017-10-20 11:04] LABS: C-REACTIVE PROTEIN < 0.5 mg/dl (0.0-0.9)
[2017-10-20] MEDS: ONDANSETRON 4 MG INJ IV PRN ×2 (13:05→21:32)
[2017-10-20 13:37] LABS: POTASSIUM,URINE RANDOM 34.9 mmol/L (25-125)
[2017-10-20 14:43] VITALS: BP 105/62; RESP 16
[2017-10-20 19:48] VITALS: BP 114/59; RESP 14
[2017-10-20] MEDS: CEFTRIAXONE 1 GM/50 ML (PMX) 50 ML IVPB SCH (19:57)
[2017-10-21 02:00] VITALS: BP 116/74; RESP 16
[2017-10-21] MEDS: morphine 2 MG INJ IV PRN ×4 (02:08→20:05)
[2017-10-21] MEDS: SOD CHLORIDE 0.45% 1,000 ML IV SCH ×2 (02:11→10:54)
[2017-10-21] MEDS: PANTOPRAZOLE (EC) 40 MG TAB PO SCH (05:47)
[2017-10-21] MEDS: ONDANSETRON 4 MG INJ IV PRN (06:35)
[2017-10-21 07:05] LABS: BASOPHILS % 0.2 % (0.0-2.0); EOSINOPHILS # 0.1 10^3/ul (0.0-0.5); HEMATOCRIT 27.1 % (37.0-47.0); HEMOGLOBIN 8.7 g/dl (12.0-16.0); LYMPHOCYTES # 1.1 10^3/ul (0.8-2.9); LYMPHOCYTES % 25.9 % (15.0-51.0); MEAN CORPUSCULAR HEMOGLOBIN 32.2 pg (29.0-33.0); MEAN CORPUSCULAR HGB CONC 32.1 g/dl (32.0-37.0); MEAN CORPUSCULAR VOLUME 100.4 fl (82.0-101.0); MEAN PLATELET VOLUME 12.4 fl (7.4-10.4); MONOCYTE # 0.4 10^3/ul (0.3-0.9); NEUTROPHIL # 2.5 10^3/ul (1.6-7.5); NEUTROPHILS % 61.7 % (39.0-77.0); PLATELET COUNT 104 10^3/UL (140-415); RED CELL DISTRIBUTION WIDTH 13.5 % (11.5-14.5); WHITE BLOOD COUNT 4.1 10^3/ul (4.8-10.8)
[2017-10-21 07:25] LABS: CALCIUM 6.7 mg/dl (8.4-10.2); CREATININE 1.69 mg/dl (0.44-1.00); POTASSIUM 4.3 mmol/L (3.5-5.1)
[2017-10-21 07:46] VITALS: BP 113/62; RESP 18
[2017-10-21] MEDS: CITRIC ACID/SODIUM CITRATE 15 ML CUP PO SCH ×3 (09:24→20:03)
[2017-10-21] MEDS: HEPARIN 5,000 UNIT/0.5 ML VIAL SC SCH ×2 (09:30→20:19)
[2017-10-21] MEDS ORDERED: BACLOFEN 10 MG TAB PO ONE (12:30)
[2017-10-21 12:36] LABS: MYELOPEROXIDASE ANTIBODY <1.0 AI; PROTEINASE-3 ANTIBODY <1.0 AI
[2017-10-21 13:15] LABS: SCRET 1.69 mg/dl (0.44-1.00)
[2017-10-21 15:07] VITALS: BP 130/84; RESP 21
--- NOTE | 2017-10-21 15:37 | PN ---
Date/Time of Note Date/Time of Note DATE: 10/21/17 TIME: 15:31 Assessment/Plan VTE Prophylaxis VTE Prophylaxis Intervention: heparin Lines/Catheters IV [facility] Peripheral IV Urinary Cath still in place: No Assessment/Plan Chief Complaint/Hosp Course 1. Epigastric abdominal pain with nausea and vomiting-slightly improved -Possibly secondary to cystitis -CT abdomen/pelvis showed a bilateral pelvic and inguinal lymphadenopathy otherwise no acute findings -Lipase and LFTs within normal limits -Continue PPI for possible gastritis -Consider GI consult if she continues to have pain and nausea, advance diet 2. UTI -Continue Rocephin -Urine culture showing gram variable rods 3. Acute kidney injury -Rule out lupus nephritis -Nephrology consultation appreciated -Follow-up on urine electrolytes 4. History of lupus: On CellCept and prednisone -Continue meds 5. Metabolic acidosis, likely related to #3 and #2 -Monitor Prophylaxis: Heparin Problems: Subjective 24 Hr Interval Summary Musculoskeletal: other (Leg pain) Exam/Review of Systems Vital Signs Vitals Vital Signs Date Time Temp Pulse Resp B/P Pulse Ox O2 Delivery O2 Flow Rate FiO2 10/21/17 15:07 98.8 117 21 130/84 100 10/20/17 06:07 Room Air Intake and Output 10/20/17 10/20/17 10/21/17 15:00 23:00 07:00 Intake Total 300 ml 425 ml 850 ml Output Total 200 ml 100 ml Balance 300 ml 225 ml 750 ml Exam Constitutional: alert, oriented Respiratory: clear to auscultation Cardiovascular: regular rate and rhythm Gastrointestinal: soft, No distended Extremities: edema Results Result Diagram: 10/21/1717 10/21/17 0617 Results 24 hrs Laboratory Tests Test 10/21/17 06:17 10/21/17 11:37 White Blood Count 4.1 #L Red Blood Count 2.70 L Hemoglobin 8.7 L Hematocrit 27.1 L Mean Corpuscular Volume 100.4 Mean Corpuscular Hemoglobin 32.2 Mean Corpuscular Hemoglobin Concent 32.1 Red Cell Distribution Width 13.5 Platelet Count 104 #L Mean Platelet Volume 12.4 H Neutrophils % 61.7 Lymphocytes % 25.9 Monocytes % 10.0 Eosinophils % 2.0 Basophils % 0.2 Nucleated Red Blood Cells % 0.0 Neutrophils # 2.5 Lymphocytes # 1.1 Monocytes # 0.4 Eosinophils # 0.1 Basophils # 0.0 Nucleated Red Blood Cells # 0.0 Sodium Level 137 Potassium Level 4.3 Chloride Level 115 H Carbon Dioxide Level 18 L Anion Gap 8 Blood Urea Nitrogen 26 H Creatinine 1.69 H Glucose Level 57 #L Calcium Level 6.7 L Urine Random Creatinine 169.41 Urine Collection Duration 24 Urine Total Volume 24 Hours 550 Urine Creatinine Timed 24 Creatinine Clearance 38.3 L Urine Total Volume (Protein) 550 Urine Total Protein 24 Hour Medications Medications Current Medications Ondansetron HCl (Zofran Inj) 4 mg Q6H PRN IV NAUSEA AND/OR VOMITING Last administered on 10/21/17 06:35; Admin Dose 4 MG; Start 10/19/17 at 19:00 Acetaminophen (Tylenol Tab) 650 mg Q6H PRN PO PAIN LEVEL 1-3 OR FEVER Last administered on 10/20/17 15:45; Admin Dose 650 MG; Start 10/19/17 at 19:00 Acetaminophen/ Hydrocodone Bitart ([place] (5/325)) 1 tab Q6H PRN PO MODERATE PAIN LEVEL 4-6 Last administered on 10/20/17 10:01; Admin Dose 1 TAB; Start 10/19/17 at 19:00 Morphine Sulfate (morphine) 2 mg Q4H PRN IV SEVERE PAIN LEVEL 7-10 Last administered on 10/21/17 15:15; Admin Dose 2 MG; Start 10/19/17 at 19:00 Docusate Sodium (Colace) 100 mg Q12H PRN PO CONSTIPATION; Start 10/19/17 at 19 :00 Magnesium Hydroxide (Milk Of Mag) 30 ml DAILY PRN PO CONSTIPATION; Start 10/19 at 19:00 Sodium Biphosphate/ Sodium Phosphate (Fleet Enema) 133 ml DAILY PRN [place] CONSTIPATION; Start 10/19/17 at 19:00 Pantoprazole (Protonix Tab) 40 mg DAILY@06 PO Last administered on 10/21/17 05:47; Admin Dose 40 MG; Start 10/20/17 at 06:00 Heparin Sodium (Porcine) 5000 unit 5,000 unit Q12 SC Last administered on 10/21 09:30; Admin Dose 5,000 UNIT; Start 10/19/17 at 21:00 Sodium Chloride (1/2 NS) 1,000 ml @ 75 mls/hr [id number] IV Last administered on 10/21/17 02:11; Admin Dose 75 MLS/HR; Start 10/19/17 at 18:54 Lorazepam (Ativan) 0.5 mg Q6H PRN IV ANXIETY; Start 10/19/17 at 19:00 Hydralazine HCl 10 mg 10 mg Q6H PRN IV ELEVATED BLOOD PRESSURE; Start at 19:00 Ceftriaxone Sodium (Rocephin) 50 ml @ 100 mls/hr Q24H IVPB Last administered on 10/20/17 19:57; Admin Dose 100 MLS/HR; Start 10/19/17 at 19:00 Nitroglycerin (Nitroglycerin (Sl Tab) 0.4 Mg) 1 tab Q5M PRN SL ANGINA; Start 10/19/17 at 19:00 Citric Acid/ Sodium Citrate (Bicitra) 30 ml TID PO Last administered on 12:50; Admin Dose 30 ML; Start 10/20/17 at 09:00 JES ANDREWS Oct 21, 2017 15:37
[2017-10-21 16:00] VITALS: BP 128/80; PULSE 99
--- NOTE | 2017-10-21 16:06 | CONS ---
Date/Time of Note Date/Time of Note DATE: 10/21/17 TIME: 16:05 Assessment/Plan Assessment/Plan Additional Assessment/Plan 1. Acute kidney injury due to Prerenal azotemia 2. Possible lupus nephritis 3. 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 Hypertension 5. LE edema Plan: 24 hr urine collection done, report pending XAVIER< ANCA.< ESR, CRP, Hepatitis panel, HIV pending RENAL US ordered D/c IVF NS due to hyperchloremic metabolic acidosis, will plan for IV albumin + lasix diuresis after reviewing 24 hr urine report and other blood tests will continue to follow up Consultation Date/Type/Reason Admit Date/Time Oct 19, 2017 at 18:15 Initial Consult Date 10/20/17 Type of Consultation: NEPHROLOGY Referring Provider: TERRI BISHOP MD 24 HR Interval Summary Free Text/Dictation Cr 1.69, HCO3 19 , still c/o leg edema Exam/Review of Systems Vital Signs Vitals Vital Signs Date Time Temp Pulse Resp B/P Pulse Ox O2 Delivery O2 Flow Rate FiO2 10/21/17 15:07 98.8 117 21 130/84 100 10/20/17 06:07 Room Air Intake and Output 10/20/17 10/20/17 10/21/17 15:00 23:00 07:00 Intake Total 300 ml 425 ml 850 ml Output Total 200 ml 100 ml Balance 300 ml 225 ml 750 ml Exam Constitutional: alert Psych: no complaints Head: normocephalic Eyes: nl conjunctiva ENMT: nl external ears & nose Neck: non-tender, supple Respiratory: clear to auscultation, normal air movement Cardiovascular: nl pulses, regular rate and rhythm Gastrointestinal: non-tender, soft Musculoskeletal: nl extremities to inspection, swelling (2-3+ pitting edema ) Extremities: normal pulses Neurological: NATURAL RESOURCES EXTENSION EDUCATOR II-XII intact, nl mental status, nl speech, nl strength Skin: nl turgor Lymph: nl lymph nodes Results Result Diagram: 10/21/1761610/21/1717 Results 24 hrs Laboratory Tests Test 10/21/17 06:17 10/21/17 11:37 White Blood Count 4.1 #L Red Blood Count 2.70 L Hemoglobin 8.7 L Hematocrit 27.1 L Mean Corpuscular Volume 100.4 Mean Corpuscular Hemoglobin 32.2 Mean Corpuscular Hemoglobin Concent 32.1 Red Cell Distribution Width 13.5 Platelet Count 104 #L Mean Platelet Volume 12.4 H Neutrophils % 61.7 Lymphocytes % 25.9 Monocytes % 10.0 Eosinophils % 2.0 Basophils % 0.2 Nucleated Red Blood Cells % 0.0 Neutrophils # 2.5 Lymphocytes # 1.1 Monocytes # 0.4 Eosinophils # 0.1 Basophils # 0.0 Nucleated Red Blood Cells # 0.0 Sodium Level 137 Potassium Level 4.3 Chloride Level 115 H Carbon Dioxide Level 18 L Anion Gap 8 Blood Urea Nitrogen 26 H Creatinine 1.69 H Glucose Level 57 #L Calcium Level 6.7 L Urine Random Creatinine 169.41 Urine Collection Duration 24 Urine Total Volume 24 Hours 550 Urine Creatinine Timed 24 Creatinine Clearance 38.3 L Urine Total Volume (Protein) 550 Urine Total Protein 24 Hour Medications Medications Current Medications Ondansetron HCl (Zofran Inj) 4 mg Q6H PRN IV NAUSEA AND/OR VOMITING Last administered on 10/21/17 06:35; Admin Dose 4 MG; Start 10/19/17 at 19:00 Acetaminophen (Tylenol Tab) 650 mg Q6H PRN PO PAIN LEVEL 1-3 OR FEVER Last administered on 10/20/17 15:45; Admin Dose 650 MG; Start 10/19/17 at 19:00 Acetaminophen/ Hydrocodone Bitart ([place] (5/325)) 1 tab Q6H PRN PO MODERATE PAIN LEVEL 4-6 Last administered on 10/20/17 10:01; Admin Dose 1 TAB; Start 10/19/17 at 19:00 Morphine Sulfate (morphine) 2 mg Q4H PRN IV SEVERE PAIN LEVEL 7-10 Last administered on 10/21/17 15:15; Admin Dose 2 MG; Start 10/19/17 at 19:00 Docusate Sodium (Colace) 100 mg Q12H PRN PO CONSTIPATION; Start 10/19/17 at 19 :00 Magnesium Hydroxide (Milk Of Mag) 30 ml DAILY PRN PO CONSTIPATION; Start 10/19 at 19:00 Sodium Biphosphate/ Sodium Phosphate (Fleet Enema) 133 ml DAILY PRN [place] CONSTIPATION; Start 10/19/17 at 19:00 Pantoprazole (Protonix Tab) 40 mg DAILY@06 PO Last administered on 10/21/17 05:47; Admin Dose 40 MG; Start 10/20/17 at 06:00 Heparin Sodium (Porcine) 5000 unit 5,000 unit Q12 SC Last administered on 10/21 09:30; Admin Dose 5,000 UNIT; Start 10/19/17 at 21:00 Sodium Chloride (1/2 NS) 1,000 ml @ 75 mls/hr [id number] IV Last administered on 10/21/17 02:11; Admin Dose 75 MLS/HR; Start 10/19/17 at 18:54 Lorazepam (Ativan) 0.5 mg Q6H PRN IV ANXIETY; Start 10/19/17 at 19:00 Hydralazine HCl 10 mg 10 mg Q6H PRN IV ELEVATED BLOOD PRESSURE; Start at 19:00 Ceftriaxone Sodium (Rocephin) 50 ml @ 100 mls/hr Q24H IVPB Last administered on 10/20/17 19:57; Admin Dose 100 MLS/HR; Start 10/19/17 at 19:00 Nitroglycerin (Nitroglycerin (Sl Tab) 0.4 Mg) 1 tab Q5M PRN SL ANGINA; Start 10/19/17 at 19:00 Citric Acid/ Sodium Citrate (Bicitra) 30 ml TID PO Last administered on 12:50; Admin Dose 30 ML; Start 10/20/17 at 09:00 ARTURO AMADOR MD Oct 21, 2017 16:06
--- NOTE | 2017-10-21 16:30 | RADRPT ---
PROCEDURE: Renal US. CLINICAL INDICATION: Acute kidney injury. TECHNIQUE: Multiple sonographic images of the kidneys and urinary bladder were obtained. The imag es were reviewed on a PACS workstation. COMPARISON: CT scan of the abdomen and pelvis dated 10/19/2017. FINDINGS: The right kidney measures 9.4 cm. The left kidney measures 9.3 cm. There is no renal mass. There is no hydronephrosis. There is no renal calculus. Renal parenchymal thickness is normal bilaterally. Echogenicity is normal bilaterally. The perirenal regions are normal with no fluid collection or mass. The urinary bladder is unremarkable. IMPRESSION: 1. Unremarkable renal ultrasound. 2. No hydronephrosis. RPTAT: QQ .Bruce Barragan MD, Date Time Electronically viewed and signed by .Bruce Barragan MD, on 10/21/2017 16:30 .R/
--- NOTE | 2017-10-21 16:45 | RADRPT ---
PROCEDURE: US bilateral lower extremity veins. CLINICAL INDICATION: Bilateral leg pain and swelling. TECHNIQUE: Multiple longitudinal and transverse images of the bilateral lower extremity veins were obtained with pressley scale and color Doppler imaging. The common femoral vein, femoral vein, and popl iteal vein were evaluated. 2D grayscale measurements with compression sonography, color Doppler, and pulsed Doppler with augmentation. COMPARISON: No prior studies are available for comparison. FINDINGS: The bilateral common femoral, femoral and popliteal veins are normally compressible throughout. Col or flow demonstrates normal filling of the vessels. Normal waveforms are visualized and there is no rmal response to augmentation. IMPRESSION: 1. No evidence of deep vein thrombosis involving either lower extremity. RPTAT: QQ .Bruce Barragan MD, MD Date Time Electronically viewed and signed by .Bruce Barragan MD, on 10/21/2017 16:44 .R/
[2017-10-21 18:31] LABS: ANA SCREEN POSITIVE (NEGATIVE)
[2017-10-21] MEDS: CEFTRIAXONE 1 GM/50 ML (PMX) 50 ML IVPB SCH (19:04)
[2017-10-21 19:18] VITALS: BP 126/82; RESP 16; RESP 26
[2017-10-22] MEDS: morphine 2 MG INJ IV PRN ×3 (01:41→17:55)
[2017-10-22] MEDS: ONDANSETRON 4 MG INJ IV PRN (01:59)
[2017-10-22 02:00] VITALS: BP 125/74; RESP 16
[2017-10-22] MEDS: PANTOPRAZOLE (EC) 40 MG TAB PO SCH (05:59)
[2017-10-22 06:26] LABS: HAAIG REFLEX REFLEX FILED
[2017-10-22 06:43] LABS: BASOPHILS % 0.4 % (0.0-2.0); EOSINOPHILS # 0.1 10^3/ul (0.0-0.5); EOSINOPHILS % 2.1 % (0.0-7.0); HEMATOCRIT 26.2 % (37.0-47.0); HEMOGLOBIN 8.5 g/dl (12.0-16.0); LYMPHOCYTES # 1.3 10^3/ul (0.8-2.9); LYMPHOCYTES % 26.3 % (15.0-51.0); MEAN CORPUSCULAR HEMOGLOBIN 32.3 pg (29.0-33.0); MEAN CORPUSCULAR HGB CONC 32.4 g/dl (32.0-37.0); MEAN CORPUSCULAR VOLUME 99.6 fl (82.0-101.0); MEAN PLATELET VOLUME 11.9 fl (7.4-10.4); MONOCYTE # 0.6 10^3/ul (0.3-0.9); MONOCYTES % 12.2 % (0.0-11.0); NEUTROPHIL # 2.8 10^3/ul (1.6-7.5); NEUTROPHILS % 58.8 % (39.0-77.0); PLATELET COUNT 123 10^3/UL (140-415); RED BLOOD COUNT 2.63 10^6/ul (4.20-5.40); RED CELL DISTRIBUTION WIDTH 13.1 % (11.5-14.5); WHITE BLOOD COUNT 4.8 10^3/ul (4.8-10.8)
[2017-10-22 06:59] LABS: POSITIVE DIFF @See below
[2017-10-22 07:43] LABS: CALCIUM 7.2 mg/dl (8.4-10.2); CREATININE 1.69 mg/dl (0.44-1.00); POTASSIUM 4.3 mmol/L (3.5-5.1)
[2017-10-22 07:58] VITALS: BP 132/79; RESP 18
[2017-10-22 08:13] LABS: HEPATITIS B CORE ANTIBODY NEGATIVE (NEGATIVE)
[2017-10-22] MEDS: CITRIC ACID/SODIUM CITRATE 15 ML CUP PO SCH ×3 (09:21→20:58)
[2017-10-22] MEDS: HEPARIN 5,000 UNIT/0.5 ML VIAL SC SCH ×2 (09:48→20:14)
--- NOTE | 2017-10-22 11:14 | PN ---
Date/Time of Note Date/Time of Note DATE: 10/22/17 TIME: 11:10 Assessment/Plan VTE Prophylaxis VTE Prophylaxis Intervention: heparin Lines/Catheters IV Catheter Type (from Nrs): [place] Urinary Cath still in place: No Assessment/Plan Chief Complaint/Hosp Course 1. Epigastric abdominal pain with nausea and vomiting-improved -Advance diet today -CT abdomen/pelvis showed a bilateral pelvic and inguinal lymphadenopathy otherwise no acute findings -Lipase and LFTs within normal limits -Continue PPI for possible gastritis -Consider GI consult if she continues to have pain and nausea 2. UTI -Continue Rocephin -Urine culture showing gram variable rods 3. Acute kidney injury on likely CKD -Rule out lupus nephritis -Nephrology consultation appreciated -Follow-up on urine electrolytes and 24 hour urine, patient may require albumin and Lasix diuresis, defer to nephrology 4. History of lupus: On CellCept and prednisone -Continue meds 5. Metabolic acidosis, likely related to #3 and #2 -Monitor 6. Lower extremity pain likely secondary to edema and/or muscle pain Pain did improve with muscle relaxer, will continue Patient may require diuresis, defer to nephrology Ultrasound of lower extremity shows no DVT Prophylaxis: Heparin Problems: Subjective 24 Hr Interval Summary Musculoskeletal: swelling (In the legs) Exam/Review of Systems Vital Signs Vitals Vital Signs Date Time Temp Pulse Resp B/P Pulse Ox O2 Delivery O2 Flow Rate FiO2 10/22/17 07:58 98.2 91 18 132/79 99 10/20/17 06:07 Room Air Intake and Output 10/21/17 10/21/17 10/22/17 15:00 23:00 07:00 Intake Total 1190 ml 360 ml Output Total 150 ml Balance 1190 ml 210 ml Exam Constitutional: alert, oriented Respiratory: clear to auscultation Cardiovascular: regular rate and rhythm Gastrointestinal: soft, No distended Extremities: edema Results Result Diagram: 10/22/17 0553 10/22/17 0553 Results 24 hrs Laboratory Tests Test 10/21/17 11:37 10/22/17 05:53 Urine Random Creatinine 169.41 Urine Collection Duration 24 Urine Total Volume 24 Hours 550 Urine Creatinine Timed 24 Creatinine Clearance 38.3 L Urine Total Volume (Protein) 550 Urine Total Protein 24 Hour White Blood Count 4.8 Red Blood Count 2.63 L Hemoglobin 8.5 L Hematocrit 26.2 L Mean Corpuscular Volume 99.6 Mean Corpuscular Hemoglobin 32.3 Mean Corpuscular Hemoglobin Concent 32.4 Red Cell Distribution Width 13.1 Platelet Count 123 L Mean Platelet Volume 11.9 H Neutrophils % 58.8 Lymphocytes % 26.3 Monocytes % 12.2 H Eosinophils % 2.1 Basophils % 0.4 Nucleated Red Blood Cells % 0.0 Neutrophils # 2.8 Lymphocytes # 1.3 Monocytes # 0.6 Eosinophils # 0.1 Basophils # 0.0 Nucleated Red Blood Cells # 0.0 Sodium Level 136 Potassium Level 4.3 Chloride Level 112 H Carbon Dioxide Level 22 Anion Gap 6 L Blood Urea Nitrogen 24 H Creatinine 1.69 H Glucose Level 83 Lactic Acid Level 0.7 Calcium Level 7.2 L Hepatitis B Surface Antigen NEGATIVE Hepatitis B Core Total Antibody NEGATIVE Hepatitis C Antibody NEGATIVE HIV (1&2) Antibody NEGATIVE Medications Medications Current Medications Ondansetron HCl (Zofran Inj) 4 mg Q6H PRN IV NAUSEA AND/OR VOMITING Last administered on 10/22/17 01:59; Admin Dose 4 MG; Start 10/19/17 at 19:00 Acetaminophen (Tylenol Tab) 650 mg Q6H PRN PO PAIN LEVEL 1-3 OR FEVER Last administered on 10/20/17 15:45; Admin Dose 650 MG; Start 10/19/17 at 19:00 Acetaminophen/ Hydrocodone Bitart ([place] (5/325)) 1 tab Q6H PRN PO MODERATE PAIN LEVEL 4-6 Last administered on 10/20/17 10:01; Admin Dose 1 TAB; Start 10/19/17 at 19:00 Morphine Sulfate (morphine) 2 mg Q4H PRN IV SEVERE PAIN LEVEL 7-10 Last administered on 10/22/17 01:41; Admin Dose 2 MG; Start 10/19/17 at 19:00 Docusate Sodium (Colace) 100 mg Q12H PRN PO CONSTIPATION; Start 10/19/17 at 19 :00 Magnesium Hydroxide (Milk Of Mag) 30 ml DAILY PRN PO CONSTIPATION; Start 10/19 at 19:00 Sodium Biphosphate/ Sodium Phosphate (Fleet Enema) 133 ml DAILY PRN [place] CONSTIPATION; Start 10/19/17 at 19:00 Pantoprazole (Protonix Tab) 40 mg DAILY@06 PO Last administered on 10/22/17 05:59; Admin Dose 40 MG; Start 10/20/17 at 06:00 Heparin Sodium (Porcine) (Heparin (5000 Units/0.5 ml)) 5,000 unit Q12 SC Last administered on 10/22/17 09:48; Admin Dose 5,000 UNIT; Start 10/19/17 at 21: 00 Lorazepam (Ativan) 0.5 mg Q6H PRN IV ANXIETY; Start 10/19/17 at 19:00 Hydralazine HCl 10 mg 10 mg Q6H PRN IV ELEVATED BLOOD PRESSURE; Start at 19:00 Ceftriaxone Sodium (Rocephin) 50 ml @ 100 mls/hr Q24H IVPB Last administered on 10/21/17 19:04; Admin Dose 100 MLS/HR; Start 10/19/17 at 19:00 Nitroglycerin (Nitroglycerin (Sl Tab) 0.4 Mg) 1 tab Q5M PRN [place] ANGINA; Start 10/19/17 at 19:00 Citric Acid/ Sodium Citrate (Bicitra) 30 ml TID PO Last administered on 09:21; Admin Dose 30 ML; Start 10/20/17 at 09:00 JES ANDREWS Oct 22, 2017 11:14
[2017-10-22] MEDS: BACLOFEN 10 MG TAB PO SCH ×2 (13:05→20:05)
[2017-10-22 13:51] VITALS: BP 125/86; RESP 18
--- NOTE | 2017-10-22 14:12 | CONS ---
Date/Time of Note Date/Time of Note DATE: 10/22/17 TIME: 13:31 Assessment/Plan Assessment/Plan Additional Assessment/Plan 1. Acute kidney injury due to Prerenal azotemia cR 1.69 2. Possible lupus nephritis 3. 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 Hypertension 5. LE edema- DVT negative Plan: - BUN/ Cr - 24/1.69 - 24 hr urine collection done, report pending - Random urine creatinine-169.41 - XAVIER- positive - ANCA.-pending - ESR- 95 - CRP- >0.5 - Hepatitis panel- negative - HIV - negative - RENAL US ordered - 1. Unremarkable renal ultrasound. 2. No hydronephrosis. D/c IVF NS due to hyperchloremic metabolic acidosis, will plan for IV albumin + lasix diuresis after reviewing 24 hr urine report and other blood tests will continue to follow up Consultation Date/Type/Reason Admit Date/Time Oct 21, 2017 at 14:31 Initial Consult Date 10/20/17 Type of Consultation: NEPHROLOGY Referring Provider: TERRI BISHOP MD 24 HR Interval Summary Free Text/Dictation - alert, awake; feels better than yesterday - c/o abdomen and leg pain - denies any nausea/vomitting - Detailed Summary Respiratory: no complaints Cardiovascular: no complaints Gastrointestinal: pain Genitourinary: no complaints Musculoskeletal: no complaints Exam/Review of Systems Vital Signs Vitals Vital Signs Date Time Temp Pulse Resp B/P Pulse Ox O2 Delivery O2 Flow Rate FiO2 10/22/17 07:58 98.2 91 18 132/79 99 10/20/17 06:07 Room Air Intake and Output 10/21/17 10/21/17 10/22/17 15:00 23:00 07:00 Intake Total 1190 ml 360 ml Output Total 150 ml Balance 1190 ml 210 ml Exam Constitutional: alert Cardiovascular: nl pulses Gastrointestinal: soft, tender Extremities: normal pulses Neurological: nl speech, nl strength Results Result Diagram: 10/22/17 0553 10/22/17 0553 Results 24 hrs Laboratory Tests Test 10/22/17 05:53 White Blood Count 4.8 Red Blood Count 2.63 L Hemoglobin 8.5 L Hematocrit 26.2 L Mean Corpuscular Volume 99.6 Mean Corpuscular Hemoglobin 32.3 Mean Corpuscular Hemoglobin Concent 32.4 Red Cell Distribution Width 13.1 Platelet Count 123 L Mean Platelet Volume 11.9 H Neutrophils % 58.8 Lymphocytes % 26.3 Monocytes % 12.2 H Eosinophils % 2.1 Basophils % 0.4 Nucleated Red Blood Cells % 0.0 Neutrophils # 2.8 Lymphocytes # 1.3 Monocytes # 0.6 Eosinophils # 0.1 Basophils # 0.0 Nucleated Red Blood Cells # 0.0 Sodium Level 136 Potassium Level 4.3 Chloride Level 112 H Carbon Dioxide Level 22 Anion Gap 6 L Blood Urea Nitrogen 24 H Creatinine 1.69 H Glucose Level 83 Lactic Acid Level 0.7 Calcium Level 7.2 L Hepatitis B Surface Antigen NEGATIVE Hepatitis B Core Total Antibody NEGATIVE Hepatitis C Antibody NEGATIVE HIV (1&2) Antibody NEGATIVE Medications Medications Current Medications Ondansetron HCl (Zofran Inj) 4 mg Q6H PRN IV NAUSEA AND/OR VOMITING Last administered on 10/22/17 01:59; Admin Dose 4 MG; Start 10/19/17 at 19:00 Acetaminophen (Tylenol Tab) 650 mg Q6H PRN PO PAIN LEVEL 1-3 OR FEVER Last administered on 10/20/17 15:45; Admin Dose 650 MG; Start 10/19/17 at 19:00 Acetaminophen/ Hydrocodone Bitart ([place] (5/325)) 1 tab Q6H PRN PO MODERATE PAIN LEVEL 4-6 Last administered on 10/20/17 10:01; Admin Dose 1 TAB; Start 10/19/17 at 19:00 Morphine Sulfate (morphine) 2 mg Q4H PRN IV SEVERE PAIN LEVEL 7-10 Last administered on 10/22/17 11:43; Admin Dose 2 MG; Start 10/19/17 at 19:00 Docusate Sodium (Colace) 100 mg Q12H PRN PO CONSTIPATION; Start 10/19/17 at 19 :00 Magnesium Hydroxide (Milk Of Mag) 30 ml DAILY PRN PO CONSTIPATION; Start 10/19 at 19:00 Sodium Biphosphate/ Sodium Phosphate (Fleet Enema) 133 ml DAILY PRN [place] CONSTIPATION; Start 10/19/17 at 19:00 Pantoprazole (Protonix Tab) 40 mg DAILY@06 PO Last administered on 10/22/17 05:59; Admin Dose 40 MG; Start 10/20/17 at 06:00 Heparin Sodium (Porcine) (Heparin (5000 Units/0.5 ml)) 5,000 unit Q12 SC Last administered on 10/22/17 09:48; Admin Dose 5,000 UNIT; Start 10/19/17 at 21: 00 Lorazepam (Ativan) 0.5 mg Q6H PRN IV ANXIETY; Start 10/19/17 at 19:00 Hydralazine HCl 10 mg 10 mg Q6H PRN IV ELEVATED BLOOD PRESSURE; Start at 19:00 Ceftriaxone Sodium (Rocephin) 50 ml @ 100 mls/hr Q24H IVPB Last administered on 10/21/17 19:04; Admin Dose 100 MLS/HR; Start 10/19/17 at 19:00 Nitroglycerin (Nitroglycerin (Sl Tab) 0.4 Mg) 1 tab Q5M PRN SL ANGINA; Start 10/19/17 at 19:00 Citric Acid/ Sodium Citrate (Bicitra) 30 ml TID PO Last administered on 13:06; Admin Dose 30 ML; Start 10/20/17 at 09:00 Baclofen (Lioresal) 10 mg TID PO Last administered on 10/22/17 13:05; Admin Dose 10 MG; Start 10/22/17 at 13:00 JESSE HINTON Oct 22, 2017 13:48
[2017-10-22] MEDS: CEFTRIAXONE 1 GM/50 ML (PMX) 50 ML IVPB SCH (19:31)
[2017-10-22 19:48] VITALS: BP 134/88; RESP 16
[2017-10-23 02:03] VITALS: BP 137/89; RESP 16
[2017-10-23] MEDS: PANTOPRAZOLE (EC) 40 MG TAB PO SCH (05:54)
[2017-10-23 06:00] LABS: BASOPHILS % 0.2 % (0.0-2.0); EOSINOPHILS # 0.1 10^3/ul (0.0-0.5); EOSINOPHILS % 2.5 % (0.0-7.0); HEMATOCRIT 24.3 % (37.0-47.0); HEMOGLOBIN 8.2 g/dl (12.0-16.0); LYMPHOCYTES # 1.1 10^3/ul (0.8-2.9); LYMPHOCYTES % 21.6 % (15.0-51.0); MEAN CORPUSCULAR HEMOGLOBIN 32.9 pg (29.0-33.0); MEAN CORPUSCULAR HGB CONC 33.7 g/dl (32.0-37.0); MEAN CORPUSCULAR VOLUME 97.6 fl (82.0-101.0); MEAN PLATELET VOLUME 11.7 fl (7.4-10.4); MONOCYTE # 0.7 10^3/ul (0.3-0.9); MONOCYTES % 12.7 % (0.0-11.0); NEUTROPHIL # 3.3 10^3/ul (1.6-7.5); NEUTROPHILS % 62.6 % (39.0-77.0); PLATELET COUNT 117 10^3/UL (140-415); RED BLOOD COUNT 2.49 10^6/ul (4.20-5.40); WHITE BLOOD COUNT 5.3 10^3/ul (4.8-10.8)
[2017-10-23] MEDS: HYDROCODONE/APAP (5/325) TAB PO PRN (06:11)
[2017-10-23 06:28] LABS: CALCIUM 7.3 mg/dl (8.4-10.2); CREATININE 1.59 mg/dl (0.44-1.00); POTASSIUM 4.3 mmol/L (3.5-5.1)
[2017-10-23 07:00] VITALS: BP 124/76; RESP 18
[2017-10-23] MEDS: BACLOFEN 10 MG TAB PO SCH ×2 (08:20→12:49)
[2017-10-23] MEDS: CITRIC ACID/SODIUM CITRATE 15 ML CUP PO SCH ×2 (08:20→12:50)
[2017-10-23] MEDS: HEPARIN 5,000 UNIT/0.5 ML VIAL SC SCH (08:26)
[2017-10-23] MEDS ORDERED: FURO-110 PO (09:34)
[2017-10-23] MEDS ORDERED: BACL10TA PO (09:34)
--- NOTE | 2017-10-23 09:35 | PDOCDIS ---
Discharge Instructions CONDITION Patient Condition: Good HOME CARE INSTRUCTIONS: Diet Instructions: Regular ACTIVITY: Activity Restrictions: No Restrictions FOLLOW UP/APPOINTMENTS Follow-up Plan F/U WITH YOUR PCP AND [facility]ATHER [facility]ORER IN 1-2 WEEKS JES ANDREWS Oct 23, 2017 09:35
--- NOTE | 2017-10-23 12:41 | CONS ---
Date/Time of Note Date/Time of Note DATE: 10/23/17 TIME: 12:37 Assessment/Plan Assessment/Plan Additional Assessment/Plan 1. Acute kidney injury due to Prerenal azotemia cR 1.69 2. Possible lupus nephritis 3. 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 Hypertension 5. LE edema- DVT negative Plan: - BUN/ Cr trended down - 23/1.59 - 24 hr urine collection done, report pending - Random urine creatinine-169.41 - XAVIER- positive - ANCA.-pending - ESR- 95 - CRP- >0.5 - Hepatitis panel- negative - HIV - negative - RENAL US ordered - 1. Unremarkable renal ultrasound. 2. No hydronephrosis. D/c IVF NS due to hyperchloremic metabolic acidosis, will plan for IV albumin + lasix diuresis after reviewing 24 hr urine report and other blood tests will continue to follow up Consultation Date/Type/Reason Admit Date/Time Oct 21, 2017 at 14:31 Initial Consult Date 10/20/17 Type of Consultation: NEPHROLOGY Referring Provider: TERRI BISHOP MD Detailed Summary Respiratory: no complaints Cardiovascular: no complaints Gastrointestinal: no complaints Genitourinary: no complaints Musculoskeletal: no complaints Exam/Review of Systems Vital Signs Vitals Vital Signs Date Time Temp Pulse Resp B/P Pulse Ox O2 Delivery O2 Flow Rate FiO2 10/23/17 07:00 98.2 89 18 124/76 97 10/20/17 06:07 Room Air Intake and Output 10/22/17 10/22/17 10/23/17 15:00 23:00 07:00 Intake Total 50 ml 240 ml Output Total 1 ml Balance 50 ml 239 ml Exam Constitutional: alert Respiratory: clear to auscultation, normal air movement Gastrointestinal: non-tender, soft Musculoskeletal: nl extremities to inspection Extremities: normal pulses Results Result Diagram: 10/23/17 0525 10/23/17 0525 Results 24 hrs Laboratory Tests Test 10/23/17 05:25 White Blood Count 5.3 Red Blood Count 2.49 L Hemoglobin 8.2 L Hematocrit 24.3 L Mean Corpuscular Volume 97.6 Mean Corpuscular Hemoglobin 32.9 Mean Corpuscular Hemoglobin Concent 33.7 Red Cell Distribution Width 13.0 Platelet Count 117 L Mean Platelet Volume 11.7 H Neutrophils % 62.6 Lymphocytes % 21.6 Monocytes % 12.7 H Eosinophils % 2.5 Basophils % 0.2 Nucleated Red Blood Cells % 0.0 Neutrophils # 3.3 Lymphocytes # 1.1 Monocytes # 0.7 Eosinophils # 0.1 Basophils # 0.0 Nucleated Red Blood Cells # 0.0 Sodium Level 136 Potassium Level 4.3 Chloride Level 110 Carbon Dioxide Level 24 Anion Gap 6 L Blood Urea Nitrogen 23 H Creatinine 1.59 H Glucose Level 85 Calcium Level 7.3 L Medications Medications Current Medications Ondansetron HCl (Zofran Inj) 4 mg Q6H PRN IV NAUSEA AND/OR VOMITING Last administered on 10/22/17 01:59; Admin Dose 4 MG; Start 10/19/17 at 19:00 Acetaminophen (Tylenol Tab) 650 mg Q6H PRN PO PAIN LEVEL 1-3 OR FEVER Last administered on 10/20/17 15:45; Admin Dose 650 MG; Start 10/19/17 at 19:00 Acetaminophen/ Hydrocodone Bitart ([place] (5/325)) 1 tab Q6H PRN PO MODERATE PAIN LEVEL 4-6 Last administered on 10/23/17 06:11; Admin Dose 1 TAB; Start 10/19/17 at 19:00 Morphine Sulfate (morphine) 2 mg Q4H PRN IV SEVERE PAIN LEVEL 7-10 Last administered on 10/22/17 17:55; Admin Dose 2 MG; Start 10/19/17 at 19:00 Docusate Sodium (Colace) 100 mg Q12H PRN PO CONSTIPATION; Start 10/19/17 at 19 :00 Magnesium Hydroxide (Milk Of Mag) 30 ml DAILY PRN PO CONSTIPATION; Start 10/19 at 19:00 Sodium Biphosphate/ Sodium Phosphate (Fleet Enema) 133 ml DAILY PRN [place] CONSTIPATION; Start 10/19/17 at 19:00 Pantoprazole (Protonix Tab) 40 mg DAILY@06 PO Last administered on 10/23/17 05:54; Admin Dose 40 MG; Start 10/20/17 at 06:00 Heparin Sodium (Porcine) (Heparin (5000 Units/0.5 ml)) 5,000 unit Q12 SC Last administered on 10/23/17 08:26; Admin Dose 5,000 UNIT; Start 10/19/17 at 21: 00 Lorazepam (Ativan) 0.5 mg Q6H PRN IV ANXIETY; Start 10/19/17 at 19:00 Hydralazine HCl 10 mg 10 mg Q6H PRN IV ELEVATED BLOOD PRESSURE; Start at 19:00 Ceftriaxone Sodium (Rocephin) 50 ml @ 100 mls/hr Q24H IVPB Last administered on 10/22/17 19:31; Admin Dose 100 MLS/HR; Start 10/19/17 at 19:00 Nitroglycerin (Nitroglycerin (Sl Tab) 0.4 Mg) 1 tab Q5M PRN SL ANGINA; Start 10/19/17 at 19:00 Citric Acid/ Sodium Citrate (Bicitra) 30 ml TID PO Last administered on 08:20; Admin Dose 30 ML; Start 10/20/17 at 09:00 Baclofen (Lioresal) 10 mg TID PO Last administered on 10/23/17 08:20; Admin Dose 10 MG; Start 10/22/17 at 13:00 JESSE HINTON Oct 23, 2017 12:41
[2017-10-23] MEDS: ONDANSETRON 4 MG INJ IV PRN (12:49)
[2017-10-23 13:08] VITALS: BP 153/95; RESP 20
[2017-10-23] MEDS ORDERED: BENA10TA48 PO (13:43)
--- NOTE | 2017-10-23 13:59 | DS ---
Date/Time of Note Date/Time of Note DATE: 10/23/17 TIME: 13:44 Discharge Summary Admission/Discharge Info Admit Date/Time Oct 21, 2017 at 14:31 Discharge Date/Time October 23, 2017 Discharge Diagnosis 1. Epigastric abdominal pain with nausea and vomiting-improved -Tolerating diet -CT abdomen/pelvis showed a bilateral pelvic and inguinal lymphadenopathy otherwise no acute findings -Lipase and LFTs within normal limits 2. UTI -Status post Rocephin -Urine culture showing gram variable rods 3. Acute kidney injury on likely CKD -Patient's 24 hour protein shows 14.6 g and hence has advanced stage lupus nephritis requires a kidney biopsy, patient needs to be discharged because she has no way to take care of her kids, nephrology has spoken to her and plan is for patient to follow-up with Dr. Dean for renal biopsy -DC with benazepril to reduce proteinuria, DC with Lasix due to third spacing 4. History of lupus: On CellCept and prednisone -Continue meds 5. Metabolic acidosis, likely related to #3 and #2-resolved 6. Lower extremity pain likely secondary to edema and/or muscle pain Pain did improve with muscle relaxer, will prescribe DC Lasix for swelling Ultrasound of lower extremity shows no DVT Patient Condition: Good Hospital Course Patient is a 32-year-old female with a history of lupus on CellCept and prednisone, anemia of chronic disease who presented to the ER complaining of abdominal pain and bloating x several weeks, worsening for the past 2 weeks. She also reported a bilateral lower extremity swelling. Patient was noted to have a UTI was treated with Rocephin, patient was seen by nephrology for evaluation of lupus nephritis. Patient did have a 24 hour urine collection that showed significant amount of protein at 14.6 g and patient was diagnosed with advanced lupus nephritis. Nephrology did recommend a renal biopsy but patient states that she needs to be discharged as she has nobody to take care of her kids. Nephrology did speak to the patient was told about the importance of obtaining a renal biopsy but patient was understandably adamant that she needs to take care of her kids and plan is for patient to return next week to follow-up with Dr. Dean. In regard to the abdominal pain and nausea this did improve, CT abdomen showed bilateral pelvic and inguinal lymphadenopathy otherwise no acute findings, patient was tolerating a p.o. diet. In regards to lower extremity pain and swelling this is secondary to third spacing due to her significant proteinuria. Ultrasound of lower extremities showed no evidence of DVT, pain did improve with muscle relaxers and patient was thought to require Lasix upon discharge in addition to muscle relaxers. Once again patient required to be discharged to attend to her children, on the day of discharge patient's vitals labs and physical exam are stable, she has no acute complaints and questions are answered. Patient is also being discharged on lisinopril for significant proteinuria. Home Meds Active Scripts Benazepril Hcl* (Benazepril Hcl*) 10 Mg Tablet, 10 MG PO DAILY, #90 TAB Prov:JES ANDREWS 10/23/17 Baclofen* (Baclofen*) 10 Mg Tablet, 10 MG PO Q8 Y for MUSCLE SPASMS, #60 TAB Prov:JES ANDREWS 10/23/17 Furosemide* (Lasix*) 20 Mg Tablet, 20 MG PO DAILY, #60 TAB Prov:JES ANDREWS 10/23/17 Ferrous Sulfate* (Ferrous Sulfate*) 325 Mg Tabec, 325 MG PO BID for 30 Days, TAB Prov:ULCAS TODD PA-C 09/12/17 Omeprazole* (Omeprazole*) 20 Mg Capsule.dr, 20 MG PO BID, #20 Prov:LUCAS TODD PA-C 09/12/17 Losartan Potassium* (Losartan Potassium*) 50 Mg Tablet, 50 MG PO DAILY, #30 TAB Prov:LULU HALEY PA-C 07/25/17 Cholecalciferol* (Vitamin D*) 400 Unit Tablet, 800 UNIT PO DAILY, #60 TAB Prov:LULU HALEY PA-C 07/25/17 Ondansetron (Ondansetron Odt) 4 Mg Tab.rapdis, 4 MG PO Q8 Y for NAUSEA AND/OR VOMITING, #30 TAB Prov:DENIS BROWN NP 07/19/17 Zmzwfmajmbdjn-Lcqdejglyp-Trzlmtkr-Codeine* (Fioricet w/ Codeine*) [id number] 30MG Capsule, 1 CAP PO Q6H Y for PAIN LEVEL 1-5, #20 CAP Prov:DENIS BROWN NP 07/19/17 Ibuprofen* (Motrin*) 600 Mg Tab, 600 MG PO Q6, #15 TAB Prov:STUART REEVES MD 05/18/17 Reported Medications Hydroxychloroquine Sulfate* (Plaquenil*) 200 Mg Tab, 200 MG PO BID, TAB 08/31/16 Mycophenolate Mofetil* (Cellcept*) 500 Mg Tablet, 3000 MG PO DAILY, TAB 08/31/16 Discontinued Reported Medications Potassium Chloride* (Klor-Con*) 20 Meq Tabsr, 50 MEQ PO DAILY, TAB.SA 08/31/16 Prednisone* (Prednisone*) 5 Mg Tab, 5 MG PO DAILY, TAB 08/31/16 Discontinued Scripts Famotidine* (Pepcid*) 20 Mg Tablet, 20 MG PO BID for 4 Days, TAB Prov:LUCAS TODD PA-C 09/12/17 Ondansetron (Ondansetron Odt) 4 Mg Tab.rapdis, 4 MG PO Q6H Y for NAUSEA AND/OR VOMITING, #20 TAB Prov:LUCAS TODD PA-C 09/12/17 Cephalexin* (Keflex*) 500 Mg Capsule, 500 MG PO QID for 5 Days, CAP Prov:STUART REEVES MD 05/18/17 Naproxen* (Naprosyn*) 500 Mg Tablet, 500 MG PO BID Y for PAIN AND/OR INFLAMMATION, #30 TAB Prov:JANELLE YOUSIF PA-C 03/21/17 Fluconazole* (Diflucan*) 150 Mg Tablet, 150 MG PO ONCE, #1 TAB Prov:JANELLE YOUSIF PA-C 12/08/16 Phenazopyridine Hcl* (Pyridium*) 100 Mg Tab, 100 MG PO TID for 7 Days, TAB Prov:JANELLE YOUSIF PA-C 12/08/16 Nitrofurantoin Monohyd Macrocr* (Macrobid*) 100 Mg Capsr, 100 MG PO BID for 5 Days, CAP Prov:JANELLE YOUSIF PA-C 12/08/16 Levofloxacin* (Levofloxacin*) 500 Mg Tablet, 500 MG PO DAILY for 7 Days, TAB Prov:MARIA DE JESUS GUTIERRES MD 09/02/16 Hydrocodone Bit-Acetaminophen (Hydrocodone Bit-APAP) 5-325MG Tablet, 2 TAB PO Q6H Y for SEVERE PAIN LEVEL 7-10 for 7 Days, #42 TAB Prov:MARIA DE JESUS GUTIERRES MD 09/02/16 Follow-up Plan F/U WITH YOUR PCP AND [facility]ELOP[facility] SPECIALIST IN 1-2 WEEKS, FOLLOW UP WITH DR ARTURO DEAN NEXT WEEK Primary Care Provider Walt Keller Time spent on discharge: > 30 minutes JES ANDREWS Oct 23, 2017 13:55
== END 2017-10-23 15:45 | disposition home or self-care (01) | DRG 690 ==
LOC: FTE 13:43 → MS2 18:15 → OBSVTOIN 10-21 14:31 → MS2 10-22 13:27
PROVIDERS: ADMIT Hospitalist; ATTEND Hospitalist
DX: N39.0 Urinary tract infection, site not specified (principal); N17.9 Acute kidney failure, unspecified; E87.2 Acidosis; M32.14 Glomerular disease in systemic lupus erythematosus; I12.9 Hypertensive chronic kidney disease with stage 1 through stage 4 chronic kidney disease, or unspecified chronic kidney disease; N18.9 Chronic kidney disease, unspecified; R60.0 Localized edema; M79.605 Pain in left leg; M79.604 Pain in right leg; Z79.899 Other long term (current) drug therapy; Z79.52 Long term (current) use of systemic steroids
CPT/HCPCS: 36415; 71010; 74176; 76775; 80048; 80053; 80061; 81001; 82436; 82575; 83036; 83605; 83690; 83735; 84100; 84133; 84156; 84300; 84439; 84443; 84560; 85025; 85651; 86021; 86038; 86140; 86703; 86704; 86709; 86803; 87086; 87340; 93970; 96372; 96374; 96375; 96376; G0378; J0696; J1644; J2270; J2405

== ENCOUNTER 2017-11-02 13:28 | Emergency (ER) | END 2017-11-02 18:58 | disposition home or self-care (01) ==

== ENCOUNTER 2017-11-04 20:13 | Emergency (ER) | END 2017-11-05 04:19 | disposition home or self-care (01) ==

== ENCOUNTER 2017-11-08 08:05 | Inpatient (IN) | END 2017-11-18 16:50 | disposition home or self-care (01) | DRG 546 ==

== ENCOUNTER 2017-11-22 02:45 | Emergency (ER) | END 2017-11-22 05:26 | disposition left against medical advice (07) ==

== ENCOUNTER 2017-11-24 03:24 | Emergency (ER) | END 2017-11-24 14:03 | disposition home or self-care (01) ==

== ENCOUNTER 2017-11-28 01:22 | Inpatient (IN) | END 2017-12-11 14:30 | disposition home or self-care (01) | DRG 673 ==

== ENCOUNTER 2017-12-31 10:26 | Inpatient (IN) | END 2018-01-06 14:57 | disposition home or self-care (01) | DRG 391 ==

== ENCOUNTER 2018-01-09 01:37 | Emergency (ER) | END 2018-01-09 10:26 | disposition home or self-care (01) ==

== ENCOUNTER 2018-05-04 13:50 | Emergency (ER) | END 2018-05-04 16:25 | disposition home or self-care (01) ==

== ENCOUNTER 2018-06-09 17:29 | Emergency (ER) | END 2018-06-09 23:29 | disposition home or self-care (01) ==

== ENCOUNTER 2018-06-10 10:47 | Inpatient (IN) | END 2018-06-16 12:01 | disposition home health service (06) | DRG 871 ==

== ENCOUNTER 2018-06-30 17:28 | Inpatient (IN) | END 2018-07-05 10:35 | disposition home or self-care (01) | DRG 602 ==

== ENCOUNTER 2018-07-12 20:35 | Emergency (ER) | END 2018-07-12 22:29 | disposition home or self-care (01) ==

== ENCOUNTER 2018-07-17 15:01 | Inpatient (IN) | END 2018-08-09 20:30 | disposition home health service (06) | DRG 870 ==

== ENCOUNTER 2018-08-31 14:59 | Inpatient (IN) | END 2018-09-05 19:01 | disposition home or self-care (01) | DRG 438 ==

== ENCOUNTER 2018-09-15 20:51 | Emergency (ER) | END 2018-09-16 00:55 | disposition home or self-care (01) ==

== ENCOUNTER 2018-09-18 00:57 | Inpatient (IN) | END 2018-09-24 15:10 | disposition home or self-care (01) | DRG 438 ==

== ENCOUNTER 2018-10-14 08:24 | Inpatient (IN) | END 2018-10-19 21:30 | disposition home or self-care (01) | DRG 193 ==

== ENCOUNTER 2018-10-25 23:25 | Inpatient (IN) | payer MEDICARE, OTHER ==
[~2018-10-25] VITALS: Ht 144.8 cm; Wt 46.6 kg
[~2018-10-25 23:25] MED LIST changes: +ACET325T33 PO; +ASPI-1046 PO; -BUTA1CAP39 PO; +CARV25TA79 PO; -CEPH-443 PO; -CHOL400T10 PO; +CLON0.1T14 PO; -FAMO-96 PO; -FER325 PO; -FLUC150T17 PO; +FLUC200T PO; +GUAI120S26 PO; -HYDR-3498 PO; +HYDR200T39 PO; -HYDR200T5 PO; -IBUP-1542 PO; +LACT1CAP28 PO; +LAS20 PO; +LEVO250T9 PO; -LEVO500T10 PO; +LORA1TAB PO; +LOSA50TA2 PO; -LOSA50TA6 PO; +METO10TA92 PO; -MYCO500T13 PO; +MYCO500T3 PO; -NAPR-260 PO; +NIFEdipine (XL) PO; -NITR-58 PO; -OMEP20CA16 PO; -ONDA4TAB14 PO; +OXYC-438 PO; +PANT40TA4 PO; -PHEN-537 PO; -POTA-57 PO; -PRED5TAB PO; +RANI150T35 PO; +SUCR1TAB56 PO
[2018-10-26] VITALS (45 sets, daily range): BP systolic 74–250; BP diastolic 49–138; PULSE 71–139; RESP 13–29; Ht 144.8 cm; Wt 46.6 kg
[2018-10-26] MEDS ORDERED: morphine 4 MG/ML VIAL IV STA ×2 (03:42→05:34)
[2018-10-26] MEDS ORDERED: ONDANSETRON 4 MG INJ IV STA (03:42)
[2018-10-26] MEDS ORDERED: CARV6.2579 PO (04:13)
[2018-10-26] MEDS ORDERED: TRAM50TA PO (04:13)
[2018-10-26] MEDS ORDERED: HYDR-3029 PO (04:13)
--- NOTE | 2018-10-26 05:44 | ERD ---
ER Documentation Chief Complaint Chief Complaint SOB x1 hour w/ CP. no fever HPI This is a 33-year-old female with shortness of breath and chest pain for the past hour. History of end-stage renal disease on dialysis with systemic lupus erythematous as well. History of trauma related to lupus. No fevers no chills. No nausea vomiting. Chest pain is mild to moderate intensity with no exacerbating relieving factors. ROS All systems reviewed and are negative except as per history of present illness. Medications Home Meds Active Scripts Sucralfate* (Carafate*) 1 Gm Tab, 1 GM PO QID for 10 Days, #30 TAB Prov:GIANCARLO NOGUERA MD 10/19/18 Lactobacillus Rhamnosus GG (Culturelle) 1 Each Capsule, 1 CAP PO BID for 10 Days, #20 CAP Prov:GIANCARLO NOGUERA MD 10/19/18 Furosemide (Lasix) 20 Mg Tab, 20 MG PO BID DIURETICS for 10 Days, #20 TAB Prov:GIANCARLO NOGUERA MD 10/19/18 [NIFEdipine (XL)] 60 MG TABSR No Conflict Check, 120 MG PO DAILY for 10 Days, #10 2 Refills Prov:GIANCARLO NOGUERA MD 10/19/18 Clonidine Hcl* (Catapres*) 0.1 Mg Tablet, 0.1 MG PO BID for 10 Days, #20 TAB 1 Refill Prov:GIANCARLO NOGUERA MD 10/19/18 Carvedilol* (Carvedilol*) 25 Mg Tablet, 25 MG PO Q8 for 10 Days, #30 TAB 1 Refill Prov:GIANCARLO NOGUERA MD 10/19/18 Ranitidine Hcl* (Zantac*) 150 Mg Tablet, 150 MG PO ONCE PRN for EPIGASTRIC PAIN, #30 TAB Prov:DEMARCO QURESHI DO 10/13/18 Aspirin* (Aspirin* (EC)) 81 Mg Tablet.dr, 81 MG PO DAILY for 30 Days, #30 otc Prov:GIANCARLO NOGUERA MD 09/24/18 Acetaminophen* (Tylenol*) 325 Mg Tablet, 650 MG PO Q6H PRN for PAIN LEVEL 1-3 OR FEVER for 1 Day, TAB Prov:GIANCARLO NOGUERA MD 09/24/18 Pantoprazole* (Pantoprazole*) 40 Mg Tablet.dr, 40 MG PO BID@, #60 TAB Prov:VIRGINIA MUSA 08/09/18 Losartan Potassium* (Cozaar*) 50 Mg Tablet, 50 MG PO BID, #60 TAB Prov:VIRGINIA MUSA 08/09/18 Reported Medications Carvedilol* (Carvedilol*) 6.25 Mg Tablet, 6.25 MG PO BID, #60 TAB 10/26/18 Tramadol Hcl* (Ultram*) 50 Mg Tablet, 100 MG PO Q8, TAB 10/26/18 Hydroxyzine Hcl* (Hydroxyzine Hcl*) 10 Mg Tablet, 10 MG PO BID PRN for ITCHING, #30 TAB 10/26/18 Lorazepam* (Lorazepam*) 1 Mg Tablet, 1 MG PO HS PRN for ANXIETY, #30 TAB 09/15/18 Metoclopramide* (Reglan*) 10 Mg Tablet, 10 MG PO Q6H PRN for NAUSEA AND OR VOMITING, TAB 09/15/18 Mycophenolate Mofetil* (Mycophenolate Mofetil*) 500 Mg Tablet, 1000 MG PO BID, TAB TAKE 2 TABLET BY MOUTH EVERY MORNING AND EVENING 06/30/18 Hydroxychloroquine Sulfate* (Hydroxychloroquine Sulfate*) 200 Mg Tablet, 200 MG PO DAILY, TAB TAKE 1 TAB BY MOUTH EVERY TUESDAY-Tuesday06/30/18 Discontinued Scripts Heoymxblytq-W-Mtdeuwsqxa Hb* (Guaifenesin* DM Syrup) 120 Ml Syrup, 10 ML PO Q4H PRN for COUGH for 1 Day Prov:GIANCARLO NOGUERA MD 10/19/18 Levofloxacin* (Levofloxacin*) 250 Mg Tablet, 250 MG PO Q48H for 3 Days, #3 TAB 1 tablet every other day. Prov:GIANCARLO NOGUERA MD 10/19/18 Fluconazole* (Diflucan*) 200 Mg Tablet, 200 MG PO DAILY for 10 Days, TAB Prov:GIANCARLO NOGUERA MD 09/24/18 Oxycodone HCl/Acetaminophen (Oxycodone-Acetaminophen 5-325) 1 Each Tablet, 2 TAB PO Q4H PRN for PAIN, #30 TAB Prov:VIRGINIA MUSA 08/09/18 Cephalexin* (Keflex*) 500 Mg Capsule, 500 MG PO QID for 5 Days, CAP Prov:CORNELIUS CLARK MD 09/15/18 Nifedipine (Procardia Xl) 90 Mg Tab.er.24, 90 MG PO DAILY, #60 TAB Prov:JES ANDREWS 09/05/18 Carvedilol* (Carvedilol*) 12.5 Mg Tablet, 12.5 MG PO Q8, #60 TAB Prov:IVRGINIA MUSA 08/09/18 Allergies Allergies: Coded Allergies: hydrocodone (Unverified Allergy, Unknown, paralysis, 10/13/18) Uncoded Allergies: tape (Allergy, Severe, blister, hives, 07/20/18) PMhx/Soc History of Surgery: Yes (C-Surgery 2011) Anesthesia Reaction: No Hx Neurological Disorder: No Hx Respiratory Disorders: No Hx Cardiac Disorders: No (2 - July 2018; HTN) Hx Psychiatric Problems: Yes (Anxiety) Hx Miscellaneous Medical Probl: Yes (Lupus, ARF) Hx Alcohol Use: No Hx Substance Use: No Hx Tobacco Use: No Smoking Status: Never smoker Physical Exam Vitals Vital Signs Date Temp Pulse Resp B/P (MAP) Pulse Ox O2 O2 Flow FiO2 Time Delivery Rate 10/26/18 97.2 81 16 121/82 100 Room Air 02:27 (95) 10/25/18 97.2 93 16 108/63 100 23:33 (78) Physical Exam Const: No acute distress Head: Atraumatic Eyes: Normal Conjunctiva ENT: Normal External Ears, Nose and Mouth. Neck: Full range of motion. No meningismus. Resp: Clear to auscultation bilaterally Cardio: Regular rate and rhythm, no murmurs Abd: Soft, non tender, non distended. Normal bowel sounds Skin: No petechiae or rashes Back: No midline or flank tenderness Ext: No cyanosis, or edema Neur: Awake and alert Psych: Normal Mood and Affect Result Diagram: 10/26/18 0245 10/26/18 0245 Results 24 hrs Laboratory Tests Test 10/26/18 02:45 White Blood Count 5.3 10^3/ul Red Blood Count 2.40 10^6/ul Hemoglobin 7.5 g/dl Hematocrit 24.3 % Mean Corpuscular Volume 101.3 fl Mean Corpuscular Hemoglobin 31.3 pg Mean Corpuscular Hemoglobin Concent 30.9 g/dl Red Cell Distribution Width 15.6 % Platelet Count 152 10^3/UL Mean Platelet Volume 11.3 fl Immature Granulocytes % 0.200 % Neutrophils % 60.6 % Lymphocytes % 22.6 % Monocytes % 14.7 % Eosinophils % 1.5 % Basophils % 0.4 % Nucleated Red Blood Cells % 0.0 /100WBC Immature Granulocytes # 0.010 10^3/ul Neutrophils # 3.2 10^3/ul Lymphocytes # 1.2 10^3/ul Monocytes # 0.8 10^3/ul Eosinophils # 0.1 10^3/ul Basophils # 0.0 10^3/ul Nucleated Red Blood Cells # 0.0 10^3/ul Sodium Level 136 mmol/L Potassium Level 5.1 mmol/L Chloride Level 105 mmol/L Carbon Dioxide Level 22 mmol/L Anion Gap 9 Blood Urea Nitrogen 45 mg/dl Creatinine 6.58 mg/dl Est Glomerular Filtrat Rate mL/min 7 mL/min Glucose Level 82 mg/dl Calcium Level 8.8 mg/dl Total Bilirubin 0.0 mg/dl Direct Bilirubin 0.00 mg/dl Indirect Bilirubin 0.0 mg/dl Aspartate Amino Transf (AST/SGOT) 19 IU/L Alanine Aminotransferase (ALT/SGPT) 17 IU/L Alkaline Phosphatase 95 IU/L Troponin I < 0.012 ng/ml Total Protein 7.1 g/dl Albumin 3.5 g/dl Globulin 3.60 g/dl Albumin/Globulin Ratio 0.97 Current Medications Medications Dose Sig/Damaso Start Time Status Last (Trade) Ordered Route PRN Stop Time Admin Dose Reason Admin Morphine 4 mg ONCE STAT 10/26/18 DC 10/26/18 Sulfate IV 03:42 03:49 (morphine) 10/26/18 03:43 Ondansetron 4 mg ONCE STAT 10/26/18 DC 10/26/18 HCl (Zofran IV 03:42 03:49 Inj) 10/26/18 03:43 Morphine 4 mg ONCE STAT 10/26/18 DC 10/26/18 Sulfate IV 05:34 05:38 (morphine) 10/26/18 05:35 Procedures/MDM EKG: Rate/Rhythm: [Normal Sinus Rhythm] QRS, ST, T-waves: [No changes consistent w/ acute ischemia] Impression: [No evidence of ischemia or arrhythmia] Chest X-ray 1V Interpreted by me: Soft Tissue: No acute abnormalities Bones: No acute abnormalities Mediastinum/Cardiac Silhouette/Lungs: [No acute abnormalities] Patient's symptoms are concerning for cardiac cause will require inpatient workup and continuous monitoring. Further w/u for ischemia, arrhythmia, PE or dissection will be deferred to the inpatient team. Accepting Care Team: Current data and ongoing care discussed. Time: 5:30 AM Primary Provider: Rickey Consulting: Deferred to inpatient team Outstanding Data: none Departure Diagnosis: Primary Impression: Chest pain Chest pain type: unspecified Qualified Codes: R07.9 - Chest pain, unspecified Condition: Serious TERRI CURRAN Oct 26, 2018 05:44
[2018-10-26] MEDS ORDERED: NITROGLYCERIN (SL) 0.4 MG TAB SL PRN (06:00)
[2018-10-26] MEDS ORDERED: morphine 2 MG INJ IV PRN (06:00)
[2018-10-26] MEDS ORDERED: NACL 0.9% 3 ML SYG IV SCH (06:00)
[2018-10-26] MEDS ORDERED: BISACODYL (EC) 5 MG TAB PO PRN (06:00)
[2018-10-26] MEDS ORDERED: ALBUTEROL/IPRATROPIUM (NEB) 3 ML AMP HHN PRN (06:00)
[2018-10-26] MEDS ORDERED: ACETAMINOPHEN 325 MG TAB PO PRN (06:00)
[2018-10-26] MEDS ORDERED: DOCUSATE SODIUM 100 MG CAP PO PRN (06:00)
[2018-10-26] MEDS ORDERED: HEPARIN 5,000 UNIT/1 ML VIAL SC SCH (06:00)
[2018-10-26] MEDS ORDERED: SUCCINYLCHOLINE CHLORIDE 100 MG/5 ML SYG IV ONE (07:00)
[2018-10-26] MEDS ORDERED: ETOMIDATE 20 MG INJ ONE (07:00)
--- NOTE | 2018-10-26 08:45 | NUR ---
RN NOTE PATIENT GOT ADMITTED TO THE UNIT AT 0845 FROM ER DUE TO SOB AND CHEST PAIN. PT IS ALERT X4, NO S/S OF DISTRESS NOTED, C/O PAIN 06/09. PT HAS A HX OF LUPUS, HTN, AND ARF WITH DIALYSIS T, THRS Addendum: 10/26/18 at 1037 by DANIEL BRADFORD RN DIALYSIS TUES, THURS, AND SAT. PT HAS A NEW AV FISTULA ON THE LEFT UPPER ARM PLACED 3 WEEKS AGO AND A PERMACATH ON THE RIGHT UPPER CHEST. IV INTACT ON THE RIGHT FA, SKIN INTACT AND NOTED WITH A BUTTERFLY RASH ON HER FACE, AND RIGHT HAND DISCOLORATION FROM AN OLD BLOOD CLOT. PATIENT REFUSED TO TAKE PICTURES AND CHARGE NURSE MADE AWARE. VS WNL. WILL CONTINUE TO MONITOR.
[2018-10-26] MEDS: ONDANSETRON 4 MG INJ IV PRN (09:44)
[2018-10-26] MEDS ORDERED: morphine SULFATE/PF (2 MG/2 ML) SYG IV PRN (10:00)
[2018-10-26] MEDS ORDERED: LORAZEPAM 4 MG/ML VIAL IV PRN (11:30)
[2018-10-26] MEDS ORDERED: DIPHENHYDRAMINE 50 MG INJ IV ONE (11:30)
[2018-10-26] MEDS ORDERED: hydrOXYzine HCL 25 MG TAB PO PRN (11:30)
[2018-10-26] MEDS ORDERED: traMADol 50 MG TAB PO PRN (11:30)
[2018-10-26] MEDS ORDERED: NIFEdipine (XL) 60 MG TAB PO SCH (12:30)
[2018-10-26] MEDS ORDERED: FUROSEMIDE 20 MG TAB PO SCH (12:30)
[2018-10-26] MEDS: LOSARTAN 50 MG TAB PO SCH ×2 (12:34→23:05)
[2018-10-26] MEDS: ASPIRIN (EC) 81 MG TAB PO SCH (12:34)
[2018-10-26] MEDS: SUCRALFATE 1 GM TAB PO SCH ×3 (12:34→23:06)
--- NOTE | 2018-10-26 13:15 | NUR ---
RN NOTE CALLED [facility], PT WILL HAVE DIALYSIS TODAY CONFIRMATION # [id number]
[2018-10-26] MEDS: ACETAMINOPHEN 325 MG TAB PO PRN (13:23)
[2018-10-26] MEDS: LACTOBACILLUS RHAMNOSUS CAP PO SCH ×2 (13:30→23:06)
[2018-10-26] MEDS: HYDROXYCHLOROQUINE 200 MG TAB PO SCH (13:30)
[2018-10-26] MEDS: MYCOPHENOLATE 250 MG CAP PO SCH ×2 (13:30→23:07)
--- NOTE | 2018-10-26 14:01 | NUR ---
SW: READMISSION QUESTIONNAIRE SW met with 33-year-old female at bedside for readmission questionnaire. Patient recently d/c'd home on 10/19/18 and readmitted today, 10/26/18 with admitting diagnosis of CP. Patient states that she understood dc instructions from previous admission. States she did not have a chance to follow up with her PMD. Stats she takes all of her medications with no problems, and states got her medications filled since last d/c. Denies having any questions/ concerns regarding her medical condition. Patient states she lives with her parents and two minor children at [address] [place] [address]. States her father is taking care of the children during her hospitalization. Stats she is disabled and receives SSI benefits. States she has applied for [employer] and is awaiting on response. States her father helps her out at home and is her primary mode of transportation. Patient denies having an AHCD, and she verbally designated her mother Regine Chaves ([phone]) as primary surrogate spokesperson, and her cousin Franca Chaves ([phone]) as secondary surrogate spokesperson. Patient denies any questions/ concerns at this time. SW remains available as needed.
--- NOTE | 2018-10-26 14:08 | NUR ---
RN NOTE FOUND THE PATIENT DIAPHORETIC, C/O SHORTNESS OF BREATH. CHECKED 02 LEVEL 78% ON 2L NC, BLOOD PRESSURE 240/120, HEART RATE 146, BLOOD SUGAR 99. PT WAS STILL RESPONSIVE, ABLE TO FOLLOW COMMANDS. RAPID RESPONSE WAS CALLED AT 1408 DUE TO [address] DR[address] GIL ARRIVED ON THE UNIT WITH NEW ORDERS GIVEN. IV 40 MG LASIX WAS GIVEN AND PT WAS PLACED ON A NON REBREATHER. PER DR. GIL, PT WILL BE SENT TO ICU ROOM 117. REPORT GIVEN TO ICU NURSE BY THE BEDSIDE.
[2018-10-26] MEDS ORDERED: FUROSEMIDE 40 MG INJ ONE (14:19)
[2018-10-26] MEDS ORDERED: NITROGLYCERIN 50 MG/D5W (PMX) 250 ML IV SCH ×2 (14:30→15:00)
[2018-10-26] MEDS ORDERED: FUROSEMIDE 40 MG INJ IV ONE (14:30)
[2018-10-26] MEDS ORDERED: NITROGLYCERIN 50 MG/D5W (PMX) 250 ML ONE (14:41)
--- NOTE | 2018-10-26 14:42 | RADRPT ---
Vent Rate: 145 bpm RR Interval: 0 msec FL Interval: 130 msec QRS Duration: 72 msec QT Interval: 268 msec QTC Interval: 416 msec P-R-T [place]: 33 - 37 - 66 degrees Sinus tachycardia Otherwise normal ECG Electronically Signed By: Nirav Rendon [id number]
--- NOTE | 2018-10-26 14:51 | EN ---
Date/Time of Note Date/Time of Note DATE: 10/26/18 TIME: 14:42 Event Note Medicine Medicine Event Note Rapid response called around 14:00 for acute hypoxia and respiratory distress. Briefly, this is a 33 yo woman with SLE and ESRD from lupus nephritis. She has frequent ED admits for ESRD-related emergencies and has required intubation in the past. She presented to the ED this time after missing dialysis with SOB and chest pressure. According to the nurse the patient was hypertensive on arrival to the floor and soon went into respiratory distress. On my arrival she was on nonrebreather mask at 15L and was in acute respiratory distress with blue lips. Oxygen saturation on R hand unreliable. Breath sounds coarse throughout. She was able to follow commands like thumbs up, but unable to speak. She was tachy to 120s with loud S1 and S2. She was hypertensive to 190s systolic. Assessment: This woman likely missed dialysis and now appears to be in flash pulmonary edema. Plan - Workup: Sent CXR showing worsening pulmonary edema. - Transfer to ICU for acute respiratory failure - Trial of noninvasive BiPAP, call ED for intubation if she fails. - Pending repeat ABG. - Nitroglycerin gtt, titrate up to 100 as long as SBP>120 and MAP>70 - Due to fluid overload and hyperkalemia she should be dialyzed urgently. LI GIL MD Oct 26, 2018 14:51
--- NOTE | 2018-10-26 16:31 | HP ---
DATE OF ADMISSION: 10/26/2018 PRESENTING COMPLAINT: Chest pain in the epigastric/midsternal area, nonradiating, associated with nausea. 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 It has resulted in endstage renal disease and she is maintained on hemodialysis on a Tuesday, , Tuesday schedule. She also has a history of hypertension and chronic thrombocytopenia. She presents today with a 1-day history of epigastric/substernal chest pain which she states woke her up from sleep and associated with a feeling of inability to breathe but without fever or chills. She also denies cough. She is not very ambulant and is mainly wheelchair bound. She resides at home with her family that helps care for her. She denies passing out episodes, she denies extremity swelling, she denies dysuria or hematuria. She denies constipation or melanotic stools as well. PAST MEDICAL HISTORY: 1. Endstage renal disease on hemodialysis. 2. Anemia of chronic kidney disease. 3. Lupus complicated by lupus nephritis. 4. Chronic pancreatitis. 5. Hypertension. 6. Chronic anxiety. 7. Chronic thrombocytopenia. 8. Recent vancomycin-resistant enterococci urinary tract infection. 9. History of pleural effusion, status post recent thoracentesis in August. 10. Known cavernoma in the brain. PAST SURGICAL HISTORY: Includes a and left upper extremity fistula. ALLERGIES: HYDROCODONE AND TAPE. FAMILY HISTORY: Noncontributory. REVIEW OF SYSTEMS: Per HPI. HOME MEDICATIONS: Will be reviewed and reconciled. PHYSICAL EXAMINATION: VITAL SIGNS: Temperature is 97.9, pulse is 96, respirations 18, blood pressure was 151/100, saturations 98% on room air. GENERAL: The patient is quite anxious. At this time, she is requesting intravenous morphine, also requesting intravenous Ativan and Benadryl. She states she had recent intervention to her left upper extremity and the area is itchy. Otherwise, she is clinically in no other distress. HEENT: Head is normocephalic. Pupils are equal and reactive. Mucous membranes are moist. There is no conjunctival pallor. Posterior pharynx is clear of erythema or exudate. NECK: Supple without JVD. CHEST: With bibasilar crackles, more obvious in the posterior region with mildly diminished breath sounds. CARDIOVASCULAR: Heart sounds S1 and 2 without added sounds or murmurs. ABDOMEN: Soft, nontender, nondistended with normoactive bowel sounds. The patient does report epigastric discomfort though but there is no tenderness, rebound or guarding. EXTREMITIES: Lower extremities negative for edema. NEUROLOGIC: There are no gross focal deficits. The patient is frail and somewhat lethargic. SKIN: Slightly brittle and dry, but no gross rash or jaundice. LABORATORY VALUES: Today, her hemoglobin is 7.5 and it seems like her baseline is somewhere between 7 and 8. White count is normal. Platelet count is also normal. Usually, her platelet count is low. On her chemistry, her creatinine is 6.5. BUN is 45. She has had 2 negative cardiac enzymes. Rest of the work up complete with thyroid profile is unremarkable. The chest x-ray showed an enlarged cardiac silhouette with pulmonary venous hypertension, trace edema and a small left pleural effusion. EKG was reviewed. It did not show acute evidence of cardiac ischemia. ASSESSMENT: This is a 33-year-old female who presents with epigastric pain and nausea, managed as follows: 1. Chest pain. Rule out acute coronary syndrome and rule out pancreatitis recurrence. Lipid levels are still pending. 2. Shortness of breath. Rule out recurrence of pleural effusions that requires a thoracentesis, rule out fluid overload. 3. End-stage renal disease on hemodialysis. 4. History of lupus with lupus nephritis. 5. Chronic pancreatitis. 6. Hypertension. 7. Chronic anxiety. 8. Chronic thrombocytopenia. 9. Recent vancomycin-resistant enterococci urinary tract infection. 10. History of pleural effusion. 11. Known cavernoma. 12. Anemia of CKD 13. Possible medication seeking behavior. PLAN: We will resume the patient's home medication. I am ordering a chest ultrasound to assess the fluid in her lungs for the need for thoracentesis, complete ACS rule out. The patient recently had a 2D echocardiogram that was done 08/31/2018 and it showed EF of 55% and a small to moderate pericardial effusion. At that time, that was reviewed and thought to be likely secondary to her lupus and no further intervention was recommended. We will order a repeat echo at this time again to reassess. Continue her home medications for high blood pressure. Hgb levels are slightly lower than usual, will transfuse with HD today. At this time, the patient is also requesting antipruritic and antianxiety. We will gently give low doses and see how she does. A nephrology consultation has also been obtained for dialysis for today and further interventions will depend on clinical course. Plan of care discussed with the patient in detail. Questions have been answered. Evaluation time has been more than 1 hour. Dictated By: FARHAD LEZAMA MD BA/NTS Conf#: [id number] DID#: [id number] CC: SONY SOTO MD;*EndCC* MTDD
[2018-10-26] MEDS ORDERED: PROPOFOL 100 ML ONE (17:34)
[2018-10-26] MEDS: PROPOFOL 100 ML IV SCH (17:44)
[2018-10-26] MEDS ORDERED: PANTOPRAZOLE (EC) 40 MG TAB PO SCH (18:00)
--- NOTE | 2018-10-26 18:05 | CONS ---
DATE OF ADMISSION: 10/26/2018 DATE OF CONSULTATION: 10/26/2018 TYPE OF CONSULTATION: Nephrology. REASON FOR CONSULTATION: End-stage renal disease. PHYSICIAN REQUESTING CONSULT: Melani Hsieh MD HISTORY OF PRESENT ILLNESS: This is a 33-year-old female with a past medical history of lupus, histo ry of lupus nephritis, history of end-stage renal disease on dialysis Tuesday, Tuesday, Tuesday. Las t hemodialysis was Tuesday with access of a PermCath who presents to [facility] with mid epigastric substernal pain and shortness of breath. The patient states she has been having epig astric substernal chest pain that awoke her from sleep. She denies any fevers, chills. The patient, as a result of her symptoms, came into the emergency room for evaluation. Upon arrival, the patient had a chest x-ray which showed findings of enlarged cardiac silhouette and pulmonary venous hyperten aldair and trace edema. The patient also had a chest ultrasound which showed mild right pleural effusi on. The patient was subsequently admitted to telemetry. While on telemetry, the patient became tach ycardic, tachypneic and was transferred to the intensive care unit, placed on BiPAP. Repeat chest x- ray shows finding of prominent pulmonary edema. In the intensive care unit, the patient was also sta rted on nitroglycerin drip for hypertensive emergency. There were no reports of any hemoptysis, jessica temesis or hematochezia. PAST MEDICAL HISTORY: History of end-stage renal disease, history of lupus nephritis, history of lup us, history of hypertension, anxiety, thrombocytopenia, history of UTI. PAST SURGICAL HISTORY: Status post PermCath placement, status post left upper extremity fistula. ALLERGIES: REVIEWED. SEE LIST. FAMILY HISTORY: No family history of kidney disease. SOCIAL HISTORY: Does not drink, smoke or do drugs. MEDICATIONS: Have been reviewed. REVIEW OF SYSTEMS: A 14-point review of systems was conducted. Pertinent positives stated in HPI, o therwise negative. PHYSICAL EXAMINATION: VITAL SIGNS: Blood pressure is 165/129, respirations 24, pulse 110, temperature 97.9. HEENT: Head is normocephalic. NECK: Supple. HEART: Regular rate. LUNGS: Show diminished breath sounds at base. Positive crackles. ABDOMEN: Soft, nontender to palpation. EXTREMITIES: Negative for clubbing, cyanosis. Positive edema. DERMATOLOGIC: No rashes. MUSCULOSKELETAL: No joint effusion. NEUROLOGIC: Limited exam, but no focal deficits. LABORATORY DATA: Show a white count 5.3, hemoglobin 7.5, platelet count 152. Sodium 136, potassium 5.1, BUN 45, creatinine 6.58. IMAGING STUDIES: Reviewed. ASSESSMENT AND PLAN: This is a 33-year-old female who presents with: 1. End-stage renal disease. The patient is on dialysis Tuesday, , Tuesday. Last hemodialy sis was Tuesday. Urgent hemodialysis today. We will dialyze for 3 hours of 2K bath, calcium 2.5. We will ultrafiltrate approximately 2 to 3 liters. 2. Volume overload. The patient was noted to have pulmonary edema and is clinically volume overload ed. The patient will have hemodialysis with goal of ultrafiltration approximately 2 to 3 liters. 3. Anemia. Monitor hemoglobin and hematocrit levels. We will start patient on Epogen. Check iron panel. 4. Mineral bone disorder. Monitor calcium and phosphorus level. 5. Acute hypoxemic respiratory failure secondary to pulmonary edema. Plan is for urgent hemodialysi s. We will monitor closely. Continue BiPAP. 6. Hypertensive urgency in part due to increased intravascular volume. Continue current blood press ure regimen. Continue nitroglycerin drip. The patient is pending dialysis with ultrafiltration. 7. History of lupus. Continue medical management. 8. Tachyarrhythmia. Continue current treatment plan. Thank you, Dr. Hsieh, for this interesting consult. It will be a pleasure to follow patient with you t hroughout the hospital course. Dictated By: HERBIE BIANCHI DO NR/NTS Conf#: [id number] DID#: [id number] CC: SONY SOTO MD;*EndCC*
--- NOTE | 2018-10-26 19:25 | NUR ---
END OF SHIFT SUMMARY STUDENT WORKER WAS CALLED ON PT AT 1410. PT WAS DIAPHORETIC AND IN RESPIRATORY DISTRESS. PT WAS VERY COARSE SOUNDING AND WAS IN PULMONARY EDEMA. MD GIL MADE DECISION TO TRANSFER PT TO ICU, GIVE LASIX, START NITRO GTT, AND PLACE PT ON BIPAP. PT WAS INCONTINENT AFTER LASIX WAS GIVEN. WHILE TRANSFERRING PT ONTO ICU BED, PT BECAME HYPOXIC AND WAS BAGGED TO IMPROVE HER O2 SAT. PT WAS THEN PLACED ON BIPAP. ABGS WERE DRAWN AN HOUR AFTER. BIPAP SETTINGS WERE CHANGED. PT WAS PLACED ON NITRO GTT. ALARCON WAS PLACED. AT AROUND 1600 PT PULLED OUT IV. PT ALSO WANTED TO TAKE OFF BIPAP. WHILE TRYING TO PLACE PT ON FULL FACE MASK, PT DESATURATION AGAIN. PT WAS BAGGED AND PLACED ON MASK. MD LEZAMA WAS NOTIFIED. LISE CAME IN TO ROOM AND TALK TO PTS FAMILY. FAMILY EXPRESS THAT PT DID NOT LIKED BEING ETT. DECISION WAS MADE WITH MOTHER AND COUSIN, THAT IF NECESSARY PT WOULD NEED TO BE ETT. MD GIL WAS AT BEDSIDE WHEN WAS BREATHING AGONALLY. DECISION WAS MADE TO ETT PT AT THAT TIME. PT WAS ETT, AND STARTED ON PROPOFOL. PT BECAME MORE STABLE, AND DIALYSIS WAS STARTED ON PT. ALL OF PT NEEDS CARED FOR. ALL INCIDENTS REPORTED TO MD LEZAMA AND MD GIL. ENDORSING CARE TO NIGHTSHIFT.
[2018-10-26] MEDS ORDERED: HEPARIN 1000 UNITS/ML 10 ML INJ CATHETER SCH (20:30)
[2018-10-26] MEDS ORDERED: NORepinephrine 8MG/250 ML (PMX 250 ML IV SCH (22:00)
[2018-10-26] MEDS: HEPARIN 5,000 UNIT/1 ML VIAL SC SCH (22:16)
[2018-10-26] MEDS: EPOETIN 3000 UNITS/1 ML INJ (ESRD) SC SCH (22:19)
[2018-10-27] VITALS (56 sets, daily range): BP systolic 83–189; BP diastolic 53–92; PULSE 82–104; RESP 10–34
--- NOTE | 2018-10-27 00:16 | QN ---
Documentation Comment Emergency medicine consultation note: Was called to ICU to intubate the patient for respiratory failure despite BiPAP use Endotracheal Intubation by me: Pre assessment performed. See preceding note for details. Pre-oxygenation performed with 100% oxygen RSI: Performed w/o complication or hypoxic events. Medications as or dered. Blade: 4.0 ET Tube: 7.5 cm Depth: 22 cm at the lip Intubation confirmed by colorimetric CO2, equal breath sounds, quiet over the stomach. Chest X-ray 1V Interpreted by me: 3 cm above the magen ET tube. Normal soft tissue, No pneumothorax. Bilateral pulmonary edema FRANCINE PARK MD Oct 27, 2018 00:16
[2018-10-27] MEDS: NIFEdipine 10 MG CAP PO SCH ×4 (01:19→18:00)
[2018-10-27] MEDS: PROPOFOL 100 ML IV SCH (05:46)
[2018-10-27] MEDS ORDERED: DEXTROSE 50% 50 ML SYRINGE ONE (06:06)
[2018-10-27] MEDS ORDERED: GLUCOSE GEL 15 GRAM TUBE BUCCAL PRN (06:30)
[2018-10-27] MEDS ORDERED: GLUCAGON 1 MG INJ IM PRN (06:30)
[2018-10-27] MEDS ORDERED: GLUCOSE GEL 15 GRAM TUBE PO PRN ×2 (06:30)
[2018-10-27] MEDS ORDERED: DEXTROSE 50% 50 ML SYRINGE IV PRN (06:30)
[2018-10-27] MEDS: DEXTROSE 50% 50 ML SYRINGE IV PRN ×2 (06:34→20:10)
[2018-10-27] MEDS: PANTOPRAZOLE 40 MG INJ IV SCH ×2 (06:37→18:39)
--- NOTE | 2018-10-27 07:08 | NUR ---
EOSS: Pt got dialyzed, 2.5 L out, OGT placed, chest xray verification done. BP medication given, BP WNL throughout shift. Held Procardia in AM due to SBP 90. Repositioned q2h, oral care completed, linens changed. Pt had hypoglycemic episode of Blood sugar 56, d50 given, rechecked twice q15min blood glucose stable, Dr. Lang notified.
--- NOTE | 2018-10-27 07:51 | PN ---
Date/Time of Note Date/Time of Note DATE: 10/27/18 TIME: 07:44 Assessment/Plan VTE Prophylaxis Risk score (from Nsg)>0 risk: 4 Pharmacological prophylaxis: heparin Lines/Catheters IV Catheter Type (from Nrsg): Mid Line Urinary Cath still in place: Yes Reason Cath still needed: other (indicate) Assessment/Plan Assessment/Plan This is a 33-year-old female who presents with chest / epigastric pain and nausea, managed as follows: 1. Acute Resp failure 2/2 Pulm edema, intubated and ventilated -US shows moderate L sided pleural effusion, will order thoracentesis -continue vent support -HD for fluid removal, patient also on IV lasix -empiric abx for possible underlying pna -Pulm manging vent 2. Chest pain. -likely 2/2 above, lipase levels wnl, ACS ruled out 3. End-stage renal disease on hemodialysis. -Commenced on HD, Nephro following 4. History of lupus with lupus nephritis. -continue home meds -no evidence of flare, though its hard to tell, Rheum consult? 5. Anemia of CKD -planned for transfusion with HD 6. Hypertension. -home meds resumed, continu monitoring, Titrate PRN 7. Chronic anxiety. -PRN antianxiety meds -patient may benefit from being startedon non BZD antianxiety when being discharged 8. Chronic thrombocytopenia. -levels holding steady on this admission, continue to monitor 9. Recent vancomycin-resistant enterococci urinary tract infection. -send repeat sample, 10. Known benign brain cavernoma. 11. Hx of Pericardial effusion, small to moderate : -f/u echo 12. Hx of Chronic pancreatitis. -lipase levels wnl 13. Acute transaminitis: -patient has had recent workup for cholelithiasis with MRCP, no evidence of liver pathology or cholelithiasis on that study -trend levels for now, recent hepatitis screen negative -consider relation to lupus if levels don't trend down -will order USS Dispo: continue ICU care and micromanagement, further interventions per course Care time >40mins Result Diagram: 10/27/18 0339 10/27/18 0339 Results 24hrs Laboratory Tests Test 10/26/18 08:32 10/26/18 08:45 10/26/18 14:10 10/26/18 14:32 Creatine Kinase 21 L Creatine Kinase 2.2 Index Creatinine 0.47 Kinase MB (Mass) Troponin I < 0.012 Lipase 154 Iron Level 82 Total Iron 208 L Binding Capacity Percent Iron 39 Saturation Ferritin 561.0 H Bedside Glucose 99 Blood Gas Blood Specimen arterial Source Arterial Blood 10/26/2018 3:4 Date Drawn 0:33 PM Arterial Blood 7.200 *L pH (Temp corrected ) Arterial Blood 46.2 H pCO2 (Temp correct) Arterial Blood 51.4 *L pO2 (Temp corrected ) Arterial Blood 17.7 L HCO3 Arterial Blood -9.8 L Base Excess Arterial Blood 78.9 L Oxygen Saturati on Ck Test ACCEPTAB Arterial Blood Right Radial Gas Puncture Site Arterial 0.6 Blood Carboxyhe moglobin Arterial Blood 0.2 Methemoglobin Blood Gas A-a 615.4 H O2 Differential Oxyhemoglobin 78.3 L Percent Blood Gas 37.0 Temperature Blood Gas 24.0 Respiration Rate Blood Gas MASK - BIPAP Modality FiO2 100.0 Blood Gas YAMILETH FRIAS Critical Value Read Back Blood Gas POLLY [employer] Notified Whom Blood Gas 10/26/2018 3:5 Notified Time 7:34 PM Test 10/26/18 14:56 10/26/18 22:30 10/27/18 03:39 10/27/18 06:08 Creatine Kinase 34 Creatine Kinase 1.7 Index Creatinine 0.59 Kinase MB (Mass) Troponin I < 0.012 Blood Gas Blood arterial Specimen Source Arterial Blood 10/26/2018 10:3 Date Drawn 0:13 PM Arterial Blood 7.444 pH (Temp corrected ) Arterial Blood 36.8 pCO2 (Temp correct) Arterial Blood 457.7 H pO2 (Temp corrected ) Arterial Blood 24.7 HCO3 Arterial Blood 0.7 Base Excess Arterial Blood 99.6 H Oxygen Saturati on Ck Test ACCEPTAB Arterial Blood Right Radial Gas Puncture Site Arterial 0.2 Blood Carboxyhe moglobin Arterial Blood 0 Methemoglobin Blood Gas A-a 218.5 H O2 Differential Oxyhemoglobin 99.4 H Percent Blood Gas 37.0 Temperature Blood Gas 18.0 Respiration Rate Blood Gas 18 Actual Respiration Rat e Blood Gas VENT - AC Modality FiO2 100.0 Blood Gas Tidal 450.0 Volume Blood Gas Low 5.0 PEEP Setting Blood Gas MA Notified Whom Blood Gas 10/26/2018 10:4 Notified Time 0:51 PM White Blood 7.4 # Count Red Blood Count 2.29 L Hemoglobin 7.3 L Hematocrit 22.7 L Mean 99.1 Corpuscular Volume Mean 31.9 Corpuscular Hemoglobin Mean 32.2 Corpuscular Hemoglobin Conc ent Red Cell 15.4 H Distribution Width Platelet Count 145 Mean Platelet 12.4 H Volume Immature 0.300 Granulocytes % Neutrophils % 79.2 H Lymphocytes % 15.9 Monocytes % 4.2 Eosinophils % 0.1 Basophils % 0.3 Nucleated Red 0.0 Blood Cells % Immature 0.020 Granulocytes # Neutrophils # 5.9 Lymphocytes # 1.2 Monocytes # 0.3 Eosinophils # 0.0 Basophils # 0.0 Nucleated Red 0.0 Blood Cells # Sodium Level 138 Potassium Level 3.3 L Chloride Level 98 Carbon Dioxide 26 Level Anion Gap 14 H Blood Urea 29 #H Nitrogen Creatinine 4.39 #H Est Glomerular 11 L Filtrat Rate mL/min Glucose Level 45 #*L Hemoglobin A1c 4.4 Calcium Level 8.5 Total Bilirubin 0.0 L Direct 0.00 Bilirubin Indirect 0.0 Bilirubin Aspartate Amino 723 H Transf (AST/SGO T) Alanine 475 H Aminotransferas e (ALT/SGPT) Alkaline 93 Phosphatase Total Protein 5.8 #L Albumin 3.0 L Globulin 2.80 Albumin/Globuli 1.07 n Ratio Bedside Glucose 56 L Test 10/27/18 06:31 10/27/18 06:49 Bedside Glucose 210 164 Subjective 24 Hr Interval Summary Free Text/Dictation Patient's SOB worsened acutely yesterday and ended up despite attempts at NIPPV requiring ET intubation and is now vent dependent in ICU She went into pul edema and was started on nitroglycerin drip Had some hypoglycemia early this am Objective: GENERAL: Intubated and comfortably sedated HEENT: JONA, Intubated, Vent settings noted , LUNGS: HEART: S1, S2. No murmur, gallops or rubs. ABDOMEN: Soft, non distended, Normoactive bowel sounds. GENITOURINARY: Normal female external genitalia, Pedraza to bedside drainage EXTREMITIES: NEUROLOGIC: The patient is currently sedated. SKIN: Otherwise, unremarkable. Exam/Review of Systems Vital Signs Vitals Vital Signs Date Temp Pulse Resp B/P (MAP) Pulse Ox O2 O2 Flow FiO2 Time Delivery Rate 10/27/18 99 18 115/64 100 06:30 (81) 10/27/18 Mechanical 06:00 Ventilator 10/27/18 40 05:40 10/27/18 99.0 04:00 Intake and Output 10/26/18 10/26/18 10/27/18 1515:00 23:00 07:00 IntakeIntake Total 43.9 ml 41.5 ml OutputOutput Total 3300 ml 0 ml BalanceBalance -3256.1 ml 41.5 ml Medications Medications Current Medications IV Flush (NS 3 ml) 3 ml PER PROTOCOL IV ; Start 10/26/18 at 06:00 Ondansetron HCl (Zofran Inj) 4 mg Q6H PRN IV NAUSEA AND/OR VOMITING Last administered on 10/26/18at 09:44; Admin Dose 4 MG; Start 10/26/18 at 06:00 Nitroglycerin (Nitroglycerin (Sl Tab) 0.4 Mg) 1 tab Q5M PRN SL CHEST PAIN; Start 10/26/18 at 06:00 Docusate Sodium (Colace) 100 mg Q12H PRN PO CONSTIPATION; Start 10/26/18 at 06:00 Bisacodyl (Dulcolax) 5 mg DAILY PRN PO CONSTIPATION; Start 10/26/18 at 06:00 Albuterol/ Ipratropium (Duoneb) 3 ml Q4H RESP THERAPY PRN HHN SHORTNESS OF BREATH; Start 10/26/18 at 06:00 Tramadol HCl (Ultram) 50 mg Q6H PRN PO MODERATE PAIN LEVEL 4-6; Start 10/26/18 at 11:30 Hydroxyzine HCl (Atarax) 50 mg Q8H PRN PO ITCHING; Start 10/26/18 at 11:30 Lorazepam (Ativan) 0.5 mg Q8H PRN IV anxiety Last administered on 10/26/18at 11:58; Admin Dose 0.5 MG; Start 10/26/18 at 11:30; Stop 10/27/18 at 11:29 Heparin Sodium (Porcine) (Heparin (5000 Units/1ml)) 5,000 unit Q12 SC Last administered on 10/26/18at 22:16; Admin Dose 5,000 UNIT; Start 10/26/18 at 21:00 Acetaminophen (Tylenol Tab) 650 mg Q6H PRN PO PAIN LEVEL 1-3 OR FEVER Last administered on 10/26/18at 13:23; Admin Dose 650 MG; Start 10/26/18 at 12:30 Aspirin (Halfprin) 81 mg DAILY PO Last administered on 10/26/18 12:34; Admin Dose 81 MG; Start 10/26/18 at 12:30 Carvedilol (Coreg) 25 mg Q8 PO Last administered on 10/27/18 05:48; Admin Dose 25 MG; Start 10/26/18 at 14:00 Clonidine (Catapres) 0.1 mg BID PO Last administered on 10/26/18 23:32; Admin Dose 0.1 MG; Start 10/26/18 at 12:30 Hydroxychloroquine Sulfate (Plaquenil) 200 mg DAILY PO ; Start 10/26/18 at 13:30 Lactobacillus Acidophilus/ Rhamnosus (Culturelle) 1 cap BID PO Last administered on 10/26/18 23:06; Admin Dose 1 CAP; Start 10/26/18 at 13:30 Losartan Potassium (Cozaar) 50 mg BID PO Last administered on 10/26/18 23:05; Admin Dose 50 MG; Start 10/26/18 at 12:30 Mycophenolate Mofetil (Cellcept) 1,000 mg BID PO Last administered on 10/26/18 23:07; Admin Dose 1,000 MG; Start 10/26/18 at 13:30 Sucralfate (Carafate) 1 gm QID PO Last administered on 10/26/18 23:06; Admin Dose 1 GM; Start 10/26/18 at 13:00 Nitroglycerin/ Dextrose 250 ml @ 10 mls/hr TITRATE IV Last administered on 10/26/18at 15:08; Admin Dose 10 MLS/HR; Start 10/26/18 at 15:00 Epoetin Guanaco (Epogen (Esrd)) 6,000 units AFTER DIALYSIS SC Last administered on 10/26/18 22:19; Admin Dose 6,000 UNITS; Start 10/26/18 at 17:00 Propofol 100 ml @ 1.398 mls/ hr Q12H IV Last administered on 10/27/18 05:46; Admin Dose 11.184 MLS/HR; Start 10/26/18 at 17:30 Heparin Sodium (Porcine) (Heparin (1000 Units/ml)) 4,500 unit AFTER DIALYSIS C ATHETER Last administered on 10/26/18at 21:26; Admin Dose 4,500 UNIT; Start 10/26/18 at 20:30 Norepinephrine 250 ml @ 1.875 mls/ hr TITRATE IV ; Start 10/26/18 at 22:00 Nifedipine (Procardia) 20 mg Q6 PO Last administered on 10/27/18at 01:19; Admin Dose 20 MG; Start 10/27/18 at 00:00 Pantoprazole (Protonix Iv) 40 mg BID@06,18 IV Last administered on 10/27/18at 06:37; Admin Dose 40 MG; Start 10/27/18 at 06:00 Miscellaneous Information 1 ea NOTE XX ; Start 10/27/18 at 06:30 Glucose (Glutose) 15 gm Q15M PRN PO DECREASED GLUCOSE; Start 10/27/18 at 06:30 Glucose (Glutose) 22.5 gm Q15M PRN PO DECREASED GLUCOSE; Start 10/27/18 at 06:30 Dextrose (D50w Syringe) 25 ml Q15M PRN IV DECREASED GLUCOSE Last administered on 10/27/18at 06:34; Admin Dose 25 ML; Start 10/27/18 at 06:30 Dextrose (D50w Syringe) 50 ml Q15M PRN IV DECREASED GLUCOSE; Start 10/27/18 at 06:30 Glucagon (Glucagen) 1 mg Q15M PRN IM DECREASED GLUCOSE; Start 10/27/18 at 06:30 Glucose (Glutose) 15 gm Q15M PRN BUCCAL DECREASED GLUCOSE; Start 10/27/18 at 06:30 FARHAD LEZAMA Oct 27, 2018 07:51
[2018-10-27] MEDS ORDERED: VANCOMYCIN 1 GM 250 ML IVPB SCH (08:00)
[2018-10-27] MEDS ORDERED: VANCOMYCIN IV PER PHARMACY XX SCH (08:00)
[2018-10-27] MEDS ORDERED: POTASSIUM CHLORIDE 100 ML IVPB ONE (08:30)
[2018-10-27] MEDS: CEFEPIME 1GM/50 ML (PMX) 50 ML IVPB SCH (08:33)
[2018-10-27] MEDS: SUCRALFATE 1 GM TAB PO SCH ×4 (09:49→21:28)
[2018-10-27] MEDS: HYDROXYCHLOROQUINE 200 MG TAB PO SCH (09:50)
[2018-10-27] MEDS: MYCOPHENOLATE 250 MG CAP PO SCH ×2 (09:50→21:27)
[2018-10-27] MEDS: ASPIRIN (EC) 81 MG TAB PO SCH (09:50)
[2018-10-27] MEDS: LACTOBACILLUS RHAMNOSUS CAP PO SCH ×2 (09:50→21:28)
[2018-10-27] MEDS: LOSARTAN 50 MG TAB PO SCH ×2 (09:50→21:28)
[2018-10-27] MEDS: ACETAMINOPHEN 325 MG TAB PO PRN (09:51)
[2018-10-27] MEDS: HEPARIN 5,000 UNIT/1 ML VIAL SC SCH ×2 (10:04→21:30)
--- NOTE | 2018-10-27 13:27 | NUR ---
VANCO PER RX: 33F 4FT 9 IN. 47 KG SCR 4.39 WBC 7.4 Problem List: ARF(RESP.) 2/2 pulmonary edema, SOB, CHEST PAIN, ESRD-HD, H/O lupus nephritis, Chronic pancreatitis, Chronic thrombocytopenia, H/O Recent VRE UTI Current ABXs: VANCO, CEFEPIME Comments/Plan: VANCO 1 GM IV X 1 TODAY. RANDOM LEVEL IN 2 DAYS.
[2018-10-27] MEDS ORDERED: LIDOCAINE 1% (MPF) 5 ML VIAL ONE (15:17)
--- NOTE | 2018-10-27 15:20 | NUR ---
ULTRASOUND GUIDED LEFT SIDE THORACENTESIS COMPLETE. 10ML OF LIDOCAINE WAS ADMINISTERED BY DR. LEWIS PRIOR TO CATH PLACEMENT. 600ML OF LEFT PLEURAL FLUID WAS ASPIRATED AND DISCARDED.
[2018-10-27] MEDS ORDERED: ACETAMINOPHEN (10 MG/ML) IV SYG IV* PRN (16:00)
[2018-10-27] MEDS: morphine 2 MG INJ IV PRN ×3 (16:10→22:46)
--- NOTE | 2018-10-27 16:33 | RADRPT ---
Echocardiogram Report Patient Name: HUMERA THOMAS Gender: Female Date: 1985 Study Date: 27-Oct-2018 Cardiac Cath Lab Technologist: Helena Huber RDCS Location: [id number] Ref. Physician: FARHAD LEZAMA Quality: Adequate Procedures: Transthoracic echocardiogram examination. Indications: Pericardial Effusion. Findings Left Ventricle: The left ventricular ejection fraction is visually estimated at 50 - 55 %. Pericardium: Small to moderate pericardial effusion. Left pleural effusion seen. IVC: Inferior vena cava without respiratory collapse, however, patient on ventilator. Conclusions The left ventricular ejection fraction is visually estimated at 50 - 55 %. Small to moderate pericardial effusion. Left pleural effusion seen. Electronically Signed By: Kevin Wall 27-Oct-2018 16:32:43 -0800 Patient Name: HUMERA THOMAS Study Date: 27-Oct-2018 [id number]
--- NOTE | 2018-10-27 16:40 | CONS ---
DATE OF ADMISSION: 10/27/2018 DATE OF CONSULTATION: REASON FOR CONSULTATION: Mechanical ventilation. Thank you, Dr. Lezama, for this consultation. HISTORY OF PRESENT ILLNESS: This is a 33-year-old lady known to us with history of lupus nephritis, end-stage renal failure on hemodialysis, who came in yesterday with abdominal pain, nausea, vomiting, respiratory distress requiring emergent intubation, mechanical ventilation. Chest x-ray showed pulm onary edema. This morning, she remains awake, alert, comfortable. No evidence of respiratory arrest on CPAP weaning trial. PAST MEDICAL HISTORY: As above. MEDICATIONS: Per chart. ALLERGIES: NONE. PHYSICAL EXAMINATION: GENERAL: Chronically ill-appearing lady, awake, alert, oriented on mechanical ventilation. VITAL SIGNS: Currently afebrile, pulse is 90, blood pressure 104/56, O2 saturation 96% on FIO2 of 40 %. NECK: Supple. Orally intubated. CARDIAC: S1, S2. No added sounds or murmurs. CHEST: Diminished air entry bilaterally with few rales. ABDOMEN: Soft, nontender. No guarding or rebound. EXTREMITIES: No cyanosis, clubbing, or edema. NEUROLOGIC: Grossly intact. No focal deficits. LABORATORY DATA: White count 7.4, hemoglobin 7.3, platelets of 132. BUN 29, creatinine 4.39. Arter ial blood gas on CPAP this morning, pH 7.4, pCO2 of 41, pO2 of 80, bicarbonate of 26. DIAGNOSTIC DATA: Chest x-ray showed pulmonary edema. IMPRESSION AND PLAN: 1. Acute hypoxemic respiratory failure, likely secondary to volume overload. 2. 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 3. History of systemic lupus erythematosus. 4. History of pericardial effusion. The patient will require: 1. CPAP weaning trial extubation. 2. Continue antirejection medications. 3. Hemodialysis with volume removal. 4. Aspiration precautions. 5. DVT and GI prophylaxis. Dictated By: JAKY ZELAYA MD [facility] Conf#: [id number] DID#: [id number] CC: FARHAD LEZAMA MD; SONY SOTO MD;*EndCC*
--- NOTE | 2018-10-27 17:58 | CONS ---
Date/Time of Note Date/Time of Note DATE: 10/27/18 TIME: 17:57 Assessment/Plan Assessment/Plan Assessment/Plan 1. Acute fluid overload 2. ESRd on HD Tue, , tuesday schedule 3. H/o Lupus 4. H.o HTN 5. h.o HL 6. H/o Moderat R Pleural effusion s/p US guided thoracentesis 500 cc drained on 09/19/18 Plan: s/p Hd yestreday, bP stable, will plan for Hd tomorrow first in AM Nifedipine XL 60mg BID< pt is on Cellcept 1000mg pO BID pt follows at [facility] for scheduled HD on TTS HD tomorrow , will follow up Result Diagram: 10/27/18 1220 10/27/18 0339 Results 24hrs Laboratory Tests Test 10/26/18 22:30 10/27/18 03:39 10/27/18 06:08 10/27/18 06:31 Blood Gas Blood arterial Specimen Source Arterial Blood 10/26/2018 10:3 Date Drawn 0:13 PM Arterial Blood 7.444 pH (Temp corrected ) Arterial Blood 36.8 pCO2 (Temp correct) Arterial Blood 457.7 H pO2 (Temp corrected ) Arterial Blood 24.7 HCO3 Arterial Blood 0.7 Base Excess Arterial Blood 99.6 H Oxygen Saturati on Ck Test ACCEPTAB Arterial Blood Right Radial Gas Puncture Site Arterial 0.2 Blood Carboxyhe moglobin Arterial Blood 0 Methemoglobin Blood Gas A-a 218.5 H O2 Differential Oxyhemoglobin 99.4 H Percent Blood Gas 37.0 Temperature Blood Gas 18.0 Respiration Rate Blood Gas 18 Actual Respiration Rat e Blood Gas VENT - AC Modality FiO2 100.0 Blood Gas Tidal 450.0 Volume Blood Gas Low 5.0 PEEP Setting Blood Gas [place] Notified Whom Blood Gas 10/26/2018 10:4 Notified Time 0:51 PM White Blood 7.4 # Count Red Blood Count 2.29 L Hemoglobin 7.3 L Hematocrit 22.7 L Mean 99.1 Corpuscular Volume Mean 31.9 Corpuscular Hemoglobin Mean 32.2 Corpuscular Hemoglobin Conc ent Red Cell 15.4 H Distribution Width Platelet Count 145 Mean Platelet 12.4 H Volume Immature 0.300 Granulocytes % Neutrophils % 79.2 H Lymphocytes % 15.9 Monocytes % 4.2 Eosinophils % 0.1 Basophils % 0.3 Nucleated Red 0.0 Blood Cells % Immature 0.020 Granulocytes # Neutrophils # 5.9 Lymphocytes # 1.2 Monocytes # 0.3 Eosinophils # 0.0 Basophils # 0.0 Nucleated Red 0.0 Blood Cells # Sodium Level 138 Potassium Level 3.3 L Chloride Level 98 Carbon Dioxide 26 Level Anion Gap 14 H Blood Urea 29 #H Nitrogen Creatinine 4.39 #H Est Glomerular 11 L Filtrat Rate mL/min Glucose Level 45 #*L Hemoglobin A1c 4.4 Calcium Level 8.5 Total Bilirubin 0.0 L Direct 0.00 Bilirubin Indirect 0.0 Bilirubin Aspartate Amino 723 H Transf (AST/SGO T) Alanine 475 H Aminotransferas e (ALT/SGPT) Alkaline 93 Phosphatase Total Protein 5.8 #L Albumin 3.0 L Globulin 2.80 Albumin/Globuli 1.07 n Ratio Bedside Glucose 56 L 210 Test 10/27/18 06:49 10/27/18 11:00 10/27/18 12:20 Bedside Glucose 164 Blood Gas Blood Specimen arterial Source Arterial Blood 10/27/2018 11: Date Drawn 05:00 AM Arterial Blood 7.414 pH (Temp corrected ) Arterial Blood 41.5 pCO2 (Temp correct) Arterial Blood 80.6 pO2 (Temp corrected ) Arterial Blood 26.0 HCO3 Arterial Blood 1.3 Base Excess Arterial Blood 95.6 Oxygen Saturati on Ck Test ACCEPTAB Arterial Blood Right Radial Gas Puncture Site Arterial 0.8 Blood Carboxyhe moglobin Arterial Blood 0.3 Methemoglobin Blood Gas A-a 156.9 H O2 Differential Oxyhemoglobin 94.5 Percent Blood Gas 37.0 Temperature Blood Gas 26 Actual Respiration Rat e Blood Gas VENT - CPAP Modality FiO2 40.0 Blood Gas Low 5.0 PEEP Setting Blood Gas 10 Pressure Support Blood Gas TM Notified Whom Blood Gas 10/27/2018 11: Notified Time 24:40 AM Platelet Count 132 L Prothrombin 19.3 #H Time Prothrombin 1.5 Time Ratio INR 1.59 International Normalized Rati o Activated 50.7 H Partial Thrombo plast Time Thrombin Time 19.1 Consultation Date/Type/Reason Admit Date/Time Oct 27, 2018 at 16:04 Initial Consult Date Type of Consult NEPHROLOGY Exam/Review of Systems Vital Signs Vitals Vital Signs Date Temp Pulse Resp B/P (MAP) Pulse Ox O2 O2 Flow FiO2 Time Delivery Rate 10/27/18 92 19 139/60 100 Nasal 3.0 17:00 (86) Cannula 10/27/18 98.5 16:00 10/27/18 40 11:33 Intake and Output 10/26/18 10/26/18 10/27/18 1515:00 23:00 07:00 IntakeIntake Total 43.9 ml 47.5 ml OutputOutput Total 3300 ml 0 ml BalanceBalance -3256.1 ml 47.5 ml Medications Medications Current Medications IV Flush (NS 3 ml) 3 ml PER PROTOCOL IV ; Start 10/26/18 at 06:00 Ondansetron HCl (Zofran Inj) 4 mg Q6H PRN IV NAUSEA AND/OR VOMITING Last administered on 10/26/18at 09:44; Admin Dose 4 MG; Start 10/26/18 at 06:00 Nitroglycerin (Nitroglycerin (Sl Tab) 0.4 Mg) 1 tab Q5M PRN SL CHEST PAIN; Start 10/26/18 at 06:00 Docusate Sodium (Colace) 100 mg Q12H PRN PO CONSTIPATION; Start 10/26/18 at 06:00 Bisacodyl (Dulcolax) 5 mg DAILY PRN PO CONSTIPATION; Start 10/26/18 at 06:00 Albuterol/ Ipratropium (Duoneb) 3 ml Q4H RESP THERAPY PRN HHN SHORTNESS OF BREATH; Start 10/26/18 at 06:00 Tramadol HCl (Ultram) 50 mg Q6H PRN PO MODERATE PAIN LEVEL 4-6; Start 10/26/18 at 11:30 Hydroxyzine HCl (Atarax) 50 mg Q8H PRN PO ITCHING; Start 10/26/18 at 11:30 Heparin Sodium (Porcine) (Heparin (5000 Units/1ml)) 5,000 unit Q12 SC Last administered on 10/27/18at 10:04; Admin Dose 5,000 UNIT; Start 10/26/18 at 21:00 Acetaminophen (Tylenol Tab) 650 mg Q6H PRN PO PAIN LEVEL 1-3 OR FEVER Last administered on 10/27/18at 09:51; Admin Dose 650 MG; Start 10/26/18 at 12:30 Aspirin (Halfprin) 81 mg DAILY PO Last administered on 10/27/18at 09:50; Admin Dose 81 MG; Start 10/26/18 at 12:30 Carvedilol (Coreg) 25 mg Q8 PO Last administered on 10/27/18 05:48; Admin Dose 25 MG; Start 10/26/18 at 14:00 Clonidine (Catapres) 0.1 mg BID PO Last administered on 10/27/18 09:49; Admin Dose 0.1 MG; Start 10/26/18 at 12:30 Hydroxychloroquine Sulfate (Plaquenil) 200 mg DAILY PO Last administered on 10/27/18 09:50; Admin Dose 200 MG; Start 10/26/18 at 13:30 Lactobacillus Acidophilus/ Rhamnosus (Culturelle) 1 cap BID PO Last administered on 10/27/18 09:50; Admin Dose 1 CAP; Start 10/26/18 at 13:30 Losartan Potassium (Cozaar) 50 mg BID PO Last administered on 10/27/18 09:50; Admin Dose 50 MG; Start 10/26/18 at 12:30 Mycophenolate Mofetil (Cellcept) 1,000 mg BID PO Last administered on 10/27/18 09:50; Admin Dose 1,000 MG; Start 10/26/18 at 13:30 Sucralfate (Carafate) 1 gm QID PO Last administered on 10/27/18 09:49; Admin Dose 1 GM; Start 10/26/18 at 13:00 Epoetin Guanaco (Epogen (Esrd)) 6,000 units AFTER DIALYSIS SC Last administered on 10/26/18 22:19; Admin Dose 6,000 UNITS; Start 10/26/18 at 17:00 Heparin Sodium (Porcine) (Heparin (1000 Units/ml)) 4,500 unit AFTER DIALYSIS CATHETER Last administered on 10/26/18 21:26; Admin Dose 4,500 UNIT; Start 10/26/18 at 20:30 Norepinephrine 250 ml @ 1.875 mls/ hr TITRATE IV ; Start 10/26/18 at 22:00 Nifedipine (Procardia) 20 mg Q6 PO Last administered on 10/27/18 01:19; Admin Dose 20 MG; Start 10/27/18 at 00:00 Pantoprazole (Protonix Iv) 40 mg BID@06,18 IV Last administered on 10/27/18 06:37; Admin Dose 40 MG; Start 10/27/18 at 06:00 Miscellaneous Information 1 ea NOTE XX ; Start 10/27/18 at 06:30 Glucose (Glutose) 15 gm Q15M PRN PO DECREASED GLUCOSE; Start 10/27/18 at 06:30 Glucose (Glutose) 22.5 gm Q15M PRN PO DECREASED GLUCOSE; Start 10/27/18 at 06:30 Dextrose (D50w Syringe) 25 ml Q15M PRN IV DECREASED GLUCOSE Last administered on 10/27/18at 06:34; Admin Dose 25 ML; Start 10/27/18 at 06:30 Dextrose (D50w Syringe) 50 ml Q15M PRN IV DECREASED GLUCOSE; Start 10/27/18 at 06:30 Glucagon (Glucagen) 1 mg Q15M PRN IM DECREASED GLUCOSE; Start 10/27/18 at 06:3 0 Glucose (Glutose) 15 gm Q15M PRN BUCCAL DECREASED GLUCOSE; Start 10/27/18 at 06:30 Vancomycin HCl (Vanco Iv Per Pharmacy) VANCOMYCIN PER PHARMACY PER PROTOCOL XX ; Start 10/27/18 at 08:00 Cefepime HCl 50 ml @ 100 mls/hr Q24H IVPB Last administered on 10/27/18at 08:33; Admin Dose 100 MLS/HR; Start 10/27/18 at 08:00 Morphine Sulfate (morphine) 1 mg Q2H PRN IV SEVERE PAIN LEVEL 7-10 Last adm inistered on 10/27/18at 16:10; Admin Dose 1 MG; Start 10/27/18 at 16:00 ARTURO AMADOR MD Oct 27, 2018 17:58
[2018-10-27] MEDS ORDERED: SODIUM CHLORIDE 0.9% 1L BAG IV PRN (18:00)
[2018-10-27] MEDS ORDERED: ALBUMIN HUMAN 25% 50 ML IV PRN (18:00)
[2018-10-27] MEDS ORDERED: HEPARIN 1000 UNITS/ML 10 ML INJ CATHETER SCH (18:00)
[2018-10-27] MEDS ORDERED: HEPARIN 1000 UNITS/ML 10 ML INJ HE SCH (18:00)
--- NOTE | 2018-10-27 19:25 | NUR ---
END OF SHIFT SUMMARY PT WAS ABLE TO BE EXTUBATED TODAY. PT IS IN NO RESPIRATORY DISTRESS WITH SATURATIONS ABOVE 90% ON 4.0L O2 NC. PT IS IN SR AND IS HEMODYNAMICALLY STABLE. NO SIGNIFICANT EVENTS OCCURRED TONIGHT. MD WAS MADE AWARE OF LABS. ORDERS RECEIVED. PT HAD THORACENTESIS TODAY ON THE LEFT LUNG WITH 600ML OUT. ALL OF PT NEEDS CARED FOR. NO SIGNIFICANT EVENTS OCCURRED OVER SHIFT. ENDORSING CARE TO DAYSHIFT.
--- NOTE | 2018-10-27 20:48 | NUR ---
Nurse Note Pt with low BG at 1999 check. notified. Orders received and carried out. BG WNL at this time.
--- NOTE | 2018-10-27 22:25 | NUR ---
Nurse Note Shreya notified for ordered dialysis in AM. Confirmation # [id number]
[2018-10-28] VITALS (37 sets, daily range): BP systolic 102–160; BP diastolic 57–99; PULSE 71–99; RESP 9–20
[2018-10-28] MEDS: DEXTROSE 50% 50 ML SYRINGE IV PRN (00:14)
[2018-10-28] MEDS: NIFEdipine 10 MG CAP PO SCH ×4 (00:15→18:40)
[2018-10-28] MEDS: morphine 2 MG INJ IV PRN ×5 (02:46→15:44)
[2018-10-28] MEDS: PANTOPRAZOLE 40 MG INJ IV SCH ×2 (06:22→17:19)
--- NOTE | 2018-10-28 06:40 | NUR ---
EOSS Pt monitored through night, accuchecks q4hr x3 per Dr Jori NELSON communication note. Pt with low BG, Dr Lang notified, hypoglycemia protocol followed through night. Pt turned and repositioned q2 hours, skin care provided. Pt with chronic pain, pain medication administered, currently resting in bed, call light within reach, family at bedside, will endorse to oncoming RN.
--- NOTE | 2018-10-28 08:00 | NUR ---
Dialysis nurse at bedside at this time.
[2018-10-28] MEDS: SUCRALFATE 1 GM TAB PO SCH ×4 (08:06→20:32)
[2018-10-28] MEDS: LACTOBACILLUS RHAMNOSUS CAP PO SCH ×2 (08:06→21:34)
[2018-10-28] MEDS: ASPIRIN (EC) 81 MG TAB PO SCH (08:06)
[2018-10-28] MEDS: MYCOPHENOLATE 250 MG CAP PO SCH ×2 (08:09→20:34)
[2018-10-28] MEDS: HEPARIN 5,000 UNIT/1 ML VIAL SC SCH ×2 (08:10→23:59)
--- NOTE | 2018-10-28 10:06 | CONS ---
Date/Time of Note Date/Time of Note DATE: 10/28/18 TIME: 10:06 Assessment/Plan Assessment/Plan Assessment/Plan 1. Acute fluid overload 2. ESRd on HD Tue, , tuesday schedule 3. H/o Lupus 4. H.o HTN 5. h.o HL 6. H/o Moderat R Pleural effusion s/p US guided thoracentesis 500 cc drained on 09/19/18 Plan: s/p HD 10/28/18 3 L removed, Bp stable Nifedipine XL 60mg BID< pt is on Cellcept 1000mg pO BID pt follows at [facility] for scheduled HD on TTS next HD will be on Tuesday then pt will be on tue, , Tuesday schedule will follow up Result Diagram: 10/28/182 10/28/18 0442 Results 24hrs Laboratory Tests Test 10/27/18 11:00 10/27/18 12:20 10/27/18 19:56 10/27/18 20:23 Blood Gas Blood arterial Specimen Source Arterial Blood 10/27/2018 11:0 Date Drawn 5:00 AM Arterial Blood 7.414 pH (Temp corrected ) Arterial Blood 41.5 pCO2 (Temp correct) Arterial Blood 80.6 pO2 (Temp corrected ) Arterial Blood 26.0 HCO3 Arterial Blood 1.3 Base Excess Arterial Blood 95.6 Oxygen Saturati on Ck Test ACCEPTAB Arterial Blood Right Radial Gas Puncture Site Arterial 0.8 Blood Carboxyhe moglobin Arterial Blood 0.3 Methemoglobin Blood Gas A-a 156.9 H O2 Differential Oxyhemoglobin 94.5 Percent Blood Gas 37.0 Temperature Blood Gas 26 Actual Respiration Rat e Blood Gas VENT - CPAP Modality FiO2 40.0 Blood Gas Low 5.0 PEEP Setting Blood Gas 10 Pressure Support Blood Gas TM Notified Whom Blood Gas 10/27/2018 11:2 Notified Time 4:40 AM Platelet Count 132 L Prothrombin 19.3 #H Time Prothrombin 1.5 Time Ratio INR 1.59 International Normalized Rati o Activated 50.7 H Partial Thrombo plast Time Thrombin Time 19.1 Bedside Glucose 72 148 Test 10/27/18 20:45 10/28/18 00:09 10/28/18 00:35 10/28/18 00:52 Bedside Glucose 124 75 128 110 Test 10/28/18 04:00 10/28/18 04:42 10/28/18 08:04 Bedside Glucose 83 87 White Blood 6.6 Count Red Blood Count 2.23 L Hemoglobin 7.1 L Hematocrit 23.2 L Mean 104.0 H Corpuscular Volume Mean 31.8 Corpuscular Hemoglobin Mean 30.6 L Corpuscular Hemoglobin Conc ent Red Cell 15.5 H Distribution Width Platelet Count 136 L Mean Platelet 12.2 H Volume Immature 0.200 Granulocytes % Neutrophils % 76.5 Lymphocytes % 15.5 Monocytes % 6.9 Eosinophils % 0.6 Basophils % 0.3 Nucleated Red 0.0 Blood Cells % Immature 0.010 Granulocytes # Neutrophils # 5.0 Lymphocytes # 1.0 Monocytes # 0.5 Eosinophils # 0.0 Basophils # 0.0 Nucleated Red 0.0 Blood Cells # Sodium Level 139 Potassium Level 4.5 Chloride Level 99 Carbon Dioxide 26 Level Anion Gap 14 H Blood Urea 49 #H Nitrogen Creatinine 6.69 #H Est Glomerular 7 L Filtrat Rate mL/min Glucose Level 83 Calcium Level 8.6 Magnesium Level 1.9 Total Bilirubin 0.0 L Direct 0.00 Bilirubin Indirect 0.0 Bilirubin Aspartate Amino 949 H Transf (AST/SGO T) Alanine 847 H Aminotransferas e (ALT/SGPT) Alkaline 90 Phosphatase Total Protein 5.8 L Albumin 2.9 L Globulin 2.90 Albumin/Globuli 1.00 n Ratio Consultation Date/Type/Reason Admit Date/Time Oct 27, 2018 at 16:04 Initial Consult Date Type of Consult NEPHROLOGY 24 HR Interval Summary Free Text/Dictation s/p Hd today 3 L removed, downgraded to telemetry floor Exam/Review of Systems Vital Signs Vitals Vital Signs Date Temp Pulse Resp B/P (MAP) Pulse Ox O2 O2 Flow FiO2 Time Delivery Rate 10/28/18 80 16 121/68 100 Mask 5.0 09:41 (85) 10/28/18 98.2 08:00 10/28/18 45 01:11 Intake and Output 10/27/18 10/27/18 10/28/18 1515:00 23:00 07:00 IntakeIntake Total 532 ml 40 ml 50 ml OutputOutput Total 0 ml 0 ml 0 ml BalanceBalance 532 ml 40 ml 50 ml Exam Constitutional: alert, distress (due to fluid overload ) Psych: no complaints Head: normocephalic Neck: supple, jvd Respiratory: crackles/rales, diminished breath sounds Cardiovascular: regular rate and rhythm, nl pulses Gastrointestinal: soft Musculoskeletal: nl extremities to inspection, muscle weakness, swelling 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, other (Non focal ) Skin: nl turgor Lymph: nl lymph nodes Medications Medications Current Medications IV Flush (NS 3 ml) 3 ml PER PROTOCOL IV ; Start 10/26/18 at 06:00 Ondansetron HCl (Zofran Inj) 4 mg Q6H PRN IV NAUSEA AND/OR VOMITING Last administered on 10/26/18at 09:44; Admin Dose 4 MG; Start 10/26/18 at 06:00 Nitroglycerin (Nitroglycerin (Sl Tab) 0.4 Mg) 1 tab Q5M PRN SL CHEST PAIN; Start 10/26/18 at 06:00 Docusate Sodium (Colace) 100 mg Q12H PRN PO CONSTIPATION; Start 10/26/18 at 06:00 Bisacodyl (Dulcolax) 5 mg DAILY PRN PO CONSTIPATION; Start 10/26/18 at 06:00 Albuterol/ Ipratropium (Duoneb) 3 ml Q4H RESP THERAPY PRN HHN SHORTNESS OF BREATH Last administered on 10/27/18 23:46; Admin Dose 3 ML; Start 10/26/18 at 06:00 Tramadol HCl (Ultram) 50 mg Q6H PRN PO MODERATE PAIN LEVEL 4-6 Last administered on 10/28/18 09:31; Admin Dose 50 MG; Start 10/26/18 at 11:30 Hydroxyzine HCl (Atarax) 50 mg Q8H PRN PO ITCHING; Start 10/26/18 at 11:30 Heparin Sodium (Porcine) (Heparin (5000 Units/1ml)) 5,000 unit Q12 SC Last administered on 10/28/18 08:10; Admin Dose 5,000 UNIT; Start 10/26/18 at 21:00 Acetaminophen (Tylenol Tab) 650 mg Q6H PRN PO PAIN LEVEL 1-3 OR FEVER Last admi nistered on 10/27/18 09:51; Admin Dose 650 MG; Start 10/26/18 at 12:30 Aspirin (Halfprin) 81 mg DAILY PO Last administered on 10/28/18 08:06; Admin Dose 81 MG; Start 10/26/18 at 12:30 Carvedilol (Coreg) 25 mg Q8 PO Last administered on 10/28/18 06:24; Admin Dose 25 MG; Start 10/26/18 at 14:00 Clonidine (Catapres) 0.1 mg BID PO Last administered on 10/27/18 21:28; Admin Dose 0.1 MG; Start 10/26/18 at 12:30 Hydroxychloroquine Sulfate (Plaquenil) 200 mg DAILY PO Last administered on 10/27/18at 09:50; Admin Dose 200 MG; Start 10/26/18 at 13:30 Lactobacillus Acidophilus/ Rhamnosus (Culturelle) 1 cap BID PO Last administered on 10/28/18 08:06; Admin Dose 1 CAP; Start 10/26/18 at 13:30 Losartan Potassium (Cozaar) 50 mg BID PO Last administered on 10/27/18 21:28; Admin Dose 50 MG; Start 10/26/18 at 12:30 Mycophenolate Mofetil (Cellcept) 1,000 mg BID PO Last administered on 10/28/18 08:09; Admin Dose 1,000 MG; Start 10/26/18 at 13:30 Sucralfate (Carafate) 1 gm QID PO Last administered on 10/28/18 08:06; Admin Dose 1 GM; Start 10/26/18 at 13:00 Epoetin Guanaco (Epogen (Esrd)) 6,000 units AFTER DIALYSIS SC Last administered on 10/26/18at 22:19; Admin Dose 6,000 UNITS; Start 10/26/18 at 17:00 Norepinephrine 250 ml @ 1.875 mls/ hr TITRATE IV ; Start 10/26/18 at 22:00 Nifedipine (Procardia) 20 mg Q6 PO Last administered on 10/28/18 06:24; Admin Dose 20 MG; Start 10/27/18 at 00:00 Pantoprazole (Protonix Iv) 40 mg BID@06,18 IV Last administered on 10/28/18 06:22; Admin Dose 40 MG; Start 10/27/18 at 06:00 Miscellaneous Information 1 ea NOTE XX ; Start 10/27/18 at 06:30 Glucose (Glutose) 15 gm Q15M PRN PO DECREASED GLUCOSE; Start 10/27/18 at 06:30 Glucose (Glutose) 22.5 gm Q15M PRN PO DECREASED GLUCOSE; Start 10/27/18 at 06:30 Dextrose (D50w Syringe) 25 ml Q15M PRN IV DECREASED GLUCOSE Last administered on 10/28/18at 00:14; Admin Dose 25 ML; Start 10/27/18 at 06:30 Dextrose (D50w Syringe) 50 ml Q15M PRN IV DECREASED GLUCOSE; Start 10/27/18 at 06:30 Glucagon (Glucagen) 1 mg Q15M PRN IM DECREASED GLUCOSE; Start 10/27/18 at 06:30 Glucose (Glutose) 15 gm Q15M PRN BUCCAL DECREASED GLUCOSE; Start 10/27/18 at 06:30 Vancomycin HCl (Vanco Iv Per Pharmacy) VANCOMYCIN PER PHARMACY PER PROTOCOL XX ; Start 10/27/18 at 08:00 Cefepime HCl 50 ml @ 100 mls/hr Q24H IVPB Last administered on 10/27/18at 08:33; Admin Dose 100 MLS/HR; Start 10/27/18 at 08:00 Morphine Sulfate (morphine) 1 mg Q2H PRN IV SEVERE PAIN LEVEL 7-10 Last admini stered on 10/28/18at 06:22; Admin Dose 1 MG; Start 10/27/18 at 16:00 Heparin Sodium (Porcine) (Heparin (1000 Units/ml)) 2,000 unit WITH DIALYSIS HE Last administered on 10/28/18at 09:15; Admin Dose 2,000 UNIT; Start 10/27/18 at 18:00 Albumin Human 50 ml @ 100 mls/hr WITH DIALYSIS PRN IV SBP lower than 90 mm Hg; Start 10/27/18 at 18:00 Sodium Chloride (NS) -To prime the dialy... DIRECTED FOR HD PRN IV SBP lower than 90 mm Hg; Start 10/27/18 at 18:00 Heparin Sodium (Porcine) (Heparin (1000 Units/ml)) 4,500 unit AFTER DIALYSIS CATHETER ; Start 10/28/18 at 09:30 ARTURO AMADOR MD Oct 28, 2018 10:06
--- NOTE | 2018-10-28 10:16 | CONS ---
Date/Time of Note Date/Time of Note DATE: 10/28/18 TIME: 09:57 Assessment/Plan Assessment/Plan Hospital Course Summary Assessment and Plan: Assessment: Acute liver injury - likely secondary to hypoperfusion Chronic pancreatitis Acute Resp failure -intubated and ventilated Moderate L sided pleural effusion Chronic anemia Thrombocytopenia End-stage renal disease on hemodialysis. -Commenced on HD, Nephro following Lupus nephritis. Hypertension. Hx of Pericardial effusion, small to moderate Anxiety Plan: Recommend to trend LFTs Hepatitis B antigen confirmation was reactive July 17, 2018 hepatitis B surface antigen again checked 10/14/18 which was negative we will recheck hepatitis B surface antibody and recheck hep B core, Previously checked hepatitis C antibody which is negative. Patient seen in collaboration with Dr. Mercado/Cintia Result Diagram: 10/28/18 0442 10/28/18 0442 Results 24hrs Laboratory Tests Test 10/27/18 11:00 10/27/18 12:20 10/27/18 19:56 10/27/18 20:23 Blood Gas Blood arterial Specimen Source Arterial Blood 10/27/2018 11:0 Date Drawn 5:00 AM Arterial Blood 7.414 pH (Temp corrected ) Arterial Blood 41.5 pCO2 (Temp correct) Arterial Blood 80.6 pO2 (Temp corrected ) Arterial Blood 26.0 HCO3 Arterial Blood 1.3 Base Excess Arterial Blood 95.6 Oxygen Saturati on Ck Test ACCEPTAB Arterial Blood Right Radial Gas Puncture Site Arterial 0.8 Blood Carboxyhe moglobin Arterial Blood 0.3 Methemoglobin Blood Gas A-a 156.9 H O2 Differential Oxyhemoglobin 94.5 Percent Blood Gas 37.0 Temperature Blood Gas 26 Actual Respiration Rat e Blood Gas VENT - CPAP Modality FiO2 40.0 Blood Gas Low 5.0 PEEP Setting Blood Gas 10 Pressure Support Blood Gas TM Notified Whom Blood Gas 10/27/2018 11:2 Notified Time 4:40 AM Platelet Count 132 L Prothrombin 19.3 #H Time Prothrombin 1.5 Time Ratio INR 1.59 International Normalized Rati o Activated 50.7 H Partial Thrombo plast Time Thrombin Time 19.1 Bedside Glucose 72 148 Test 10/27/18 20:45 10/28/18 00:09 10/28/18 00:35 10/28/18 00:52 Bedside Glucose 124 75 128 110 Test 10/28/18 04:00 10/28/18 04:42 10/28/18 08:04 Bedside Glucose 83 87 White Blood 6.6 Count Red Blood Count 2.23 L Hemoglobin 7.1 L Hematocrit 23.2 L Mean 104.0 H Corpuscular Volume Mean 31.8 Corpuscular Hemoglobin Mean 30.6 L Corpuscular Hemoglobin Conc ent Red Cell 15.5 H Distribution Width Platelet Count 136 L Mean Platelet 12.2 H Volume Immature 0.200 Granulocytes % Neutrophils % 76.5 Lymphocytes % 15.5 Monocytes % 6.9 Eosinophils % 0.6 Basophils % 0.3 Nucleated Red 0.0 Blood Cells % Immature 0.010 Granulocytes # Neutrophils # 5.0 Lymphocytes # 1.0 Monocytes # 0.5 Eosinophils # 0.0 Basophils # 0.0 Nucleated Red 0.0 Blood Cells # Sodium Level 139 Potassium Level 4.5 Chloride Level 99 Carbon Dioxide 26 Level Anion Gap 14 H Blood Urea 49 #H Nitrogen Creatinine 6.69 #H Est Glomerular 7 L Filtrat Rate mL/min Glucose Level 83 Calcium Level 8.6 Magnesium Level 1.9 Total Bilirubin 0.0 L Direct 0.00 Bilirubin Indirect 0.0 Bilirubin Aspartate Amino 949 H Transf (AST/SGO T) Alanine 847 H Aminotransferas e (ALT/SGPT) Alkaline 90 Phosphatase Total Protein 5.8 L Albumin 2.9 L Globulin 2.90 Albumin/Globuli 1.00 n Ratio CC: GERALDO MERCADO ; Consultation Date/Type/Reason Admit Date/Time Oct 27, 2018 at 16:04 Date of Consultation: Oct 28, 2018 Type of Consult GI Reason for Consultation Acutely elevated liver enzymes Hx of Present Illness This is a 33-year-old female well-known to GI services with a past medical history of lupus leading to lupus nephritis as resulted in end-stage renal disease on hemodialysis, hypertension, chronic anemia, thrombocytopenia, pancreatitis who presented to the ER with complaints of epigastric pain and chest pain hospitalization patient was admitted and shortly 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 Labs were obtained patient an acutely elevated AST and ALT, level ultrasound was obtained showing that the liver is normal in size and echogenicity without focal mass or intrahepatic biliary dilation, gallbladder is normal, no pericholecystic fluid or gallbladder wall thickening or gallstones, no intra-or extrahepatic biliary dilation is seen. Impression shows increased right renal cortical echogenicity, suggesting chronic medical renal disease, partially imaged right pleural effusion she is status po st thoracentesis with proximal removal of 0.6 L of serous fluid. Liver injury likely secondary to hypoperfusion we will continue to monitor LFTs of note patient was previously checked for hepatitis hepatitis B surface antigen confirmation was reactive 07/17/18. It is B surface antigen was retracted 10/14/18 which was negative. Currently patient is resting in bed currently receiving dialysis Ventimask is in place she is alert and oriented complaining of generalized pain, early on Ultram with some help. Review of Systems: A 12 system, review was conducted and is negative except as noted in the HPI or here. Past Medical History Medications Current Medications IV Flush (NS 3 ml) 3 ml PER PROTOCOL IV ; Start 10/26/18 at 06:00 Ondansetron HCl (Zofran Inj) 4 mg Q6H PRN IV NAUSEA AND/OR VOMITING Last administered on 10/26/18at 09:44; Admin Dose 4 MG; Start 10/26/18 at 06:00 Nitroglycerin (Nitroglycerin (Sl Tab) 0.4 Mg) 1 tab Q5M PRN SL CHEST PAIN; Start 10/26/18 at 06:00 Docusate Sodium (Colace) 100 mg Q12H PRN PO CONSTIPATION; Start 10/26/18 at 06:00 Bisacodyl (Dulcolax) 5 mg DAILY PRN PO CONSTIPATION; Start 10/26/18 at 06:00 Albuterol/ Ipratropium (Duoneb) 3 ml Q4H RESP THERAPY PRN HHN SHORTNESS OF BREATH Last administered on 10/27/18at 23:46; Admin Dose 3 ML; Start 10/26/18 at 06:00 Tramadol HCl (Ultram) 50 mg Q6H PRN PO MODERATE PAIN LEVEL 4-6 Last administered on 10/28/18at 09:31; Admin Dose 50 MG; Start 10/26/18 at 11:30 Hydroxyzine HCl (Atarax) 50 mg Q8H PRN PO ITCHING; Start 10/26/18 at 11:30 Heparin Sodium (Porcine) (Heparin (5000 Units/1ml)) 5,000 unit Q12 SC Last administered on 10/28/18at 08:10; Admin Dose 5,000 UNIT; Start 10/26/18 at 21:00 Acetaminophen (Tylenol Tab) 650 mg Q6H PRN PO PAIN LEVEL 1-3 OR FEVER Last administered on 10/27/18 09:51; Admin Dose 650 MG; Start 10/26/18 at 12:30 Aspirin (Halfprin) 81 mg DAILY PO Last administered on 10/28/18 08:06; Admin Dose 81 MG; Start 10/26/18 at 12:30 Carvedilol (Coreg) 25 mg Q8 PO Last administered on 10/28/18 06:24; Admin Do se 25 MG; Start 10/26/18 at 14:00 Clonidine (Catapres) 0.1 mg BID PO Last administered on 10/27/18 21:28; Admin Dose 0.1 MG; Start 10/26/18 at 12:30 Hydroxychloroquine Sulfate (Plaquenil) 200 mg DAILY PO Last administered on 10/27/18 09:50; Admin Dose 200 MG; Start 10/26/18 at 13:30 Lactobacillus Acidophilus/ Rhamnosus (Culturelle) 1 cap BID PO Last administered on 10/28/18 08:06; Admin Dose 1 CAP; Start 10/26/18 at 13:30 Losartan Potassium (Cozaar) 50 mg BID PO Last administered on 10/27/18 21:28; Admin Dose 50 MG; Start 10/26/18 at 12:30 Mycophenolate Mofetil (Cellcept) 1,000 mg BID PO Last administered on 10/28/18 08:09; Admin Dose 1,000 MG; Start 10/26/18 at 13:30 Sucralfate (Carafate) 1 gm QID PO Last administered on 10/28/18 08:06; Admin Dose 1 GM; Start 10/26/18 at 13:00 Epoetin Guanaco (Epogen (Esrd)) 6,000 units AFTER DIALYSIS SC Last administered on 10/26/18 22:19; Admin Dose 6,000 UNITS; Start 10/26/18 at 17:00 Norepinephrine 250 ml @ 1.875 mls/ hr TITRATE IV ; Start 10/26/18 at 22:00 Nifedipine (Procardia) 20 mg Q6 PO Last administered on 10/28/18 06:24; Admin Dose 20 MG; Start 10/27/18 at 00:00 Pantoprazole (Protonix Iv) 40 mg BID@06,18 IV Last administered on 10/28/18at 06:22; Admin Dose 40 MG; Start 10/27/18 at 06:00 Miscellaneous Information 1 ea NOTE XX ; Start 10/27/18 at 06:30 Glucose (Glutose) 15 gm Q15M PRN PO DECREASED GLUCOSE; Start 10/27/18 at 06:30 Glucose (Glutose) 22.5 gm Q15M PRN PO DECREASED GLUCOSE; Start 10/27/18 at 06:30 Dextrose (D50w Syringe) 25 ml Q15M PRN IV DECREASED GLUCOSE Last administered on 10/28/18at 00:14; Admin Dose 25 ML; Start 10/27/18 at 06:30 Dextrose (D50w Syringe) 50 ml Q15M PRN IV DECREASED GLUCOSE; Start 10/27/18 at 06:30 Glucagon (Glucagen) 1 mg Q15M PRN IM DECREASED GLUCOSE; Start 10/27/18 at 06:30 Glucose (Glutose) 15 gm Q15M PRN BUCCAL DECREASED GLUCOSE; Start 10/27/18 at 06:30 Vancomycin HCl (Vanco Iv Per Pharmacy) VANCOMYCIN PER PHARMACY PER PROTOCOL XX ; Start 10/27/18 at 08:00 Cefepime HCl 50 ml @ 100 mls/hr Q24H IVPB Last administered on 10/27/18at 08:3 3; Admin Dose 100 MLS/HR; Start 10/27/18 at 08:00 Morphine Sulfate (morphine) 1 mg Q2H PRN IV SEVERE PAIN LEVEL 7-10 Last administered on 10/28/18at 06:22; Admin Dose 1 MG; Start 10/27/18 at 16:00 Heparin Sodium (Porcine) (Heparin (1000 Units/ml)) 2,000 unit WITH DIALYSIS HE Last administered on 10/28/18at 09:15; Admin Dose 2,000 UNIT; Start 10/27/18 at 18:00 Albumin Human 50 ml @ 100 mls/hr WITH DIALYSIS PRN IV SBP lower than 90 mm Hg; Start 10/27/18 at 18:00 Sodium Chloride (NS) -To prime the dialy... DIRECTED FOR HD PRN IV SBP lower than 90 mm Hg; Start 10/27/18 at 18:00 Heparin Sodium (Porcine) (Heparin (1000 Units/ml)) 4,500 unit AFTER DIALYSIS CATHETER ; Start 10/28/18 at 09:30 Allergies: Coded Allergies: adhesive tape (Verified Allergy, Unknown, 10/26/18) hydrocodone (Unverified Allergy, Unknown, paralysis, 10/13/18) Past Surgical History Past Surgical Hx: other Social History Smoking Status: Never smoker Exam/Review of Systems Vital Signs Vitals Vital Signs Date Temp Pulse Resp B/P (MAP) Pulse Ox O2 O2 Flow FiO2 Time Delivery Rate 10/28/18 80 16 121/68 100 Mask 5.0 09:41 (85) 10/28/18 98.2 08:00 10/28/18 45 01:11 Intake and Output 10/27/18 10/27/18 10/28/18 1515:00 23:00 07:00 IntakeIntake Total 532 ml 40 ml 50 ml OutputOutput Total 0 ml 0 ml 0 ml BalanceBalance 532 ml 40 ml 50 ml Exam PHYSICAL EXAMINATION: GENERAL: Chronically ill appearing SKIN: Facial erythremia improved from last admission CARDIOVASCULAR: Heart: Regular rate and rhythm RESPIRATORY: Diminished GASTROINTESTINAL AND LIVER: Abdomen: Soft, non tenderness, non-distended, no hernias, no masses, normoactive bowel sounds. Rectal: Deferred. Medications Medications Current Medications IV Flush (NS 3 ml) 3 ml PER PROTOCOL IV ; Start 10/26/18 at 06:00 Ondansetron HCl (Zofran Inj) 4 mg Q6H PRN IV NAUSEA AND/OR VOMITING Last administered on 10/26/18at 09:44; Admin Dose 4 MG; Start 10/26/18 at 06:00 Nitroglycerin (Nitroglycerin (Sl Tab) 0.4 Mg) 1 tab Q5M PRN SL CHEST PAIN; Start 10/26/18 at 06:00 Docusate Sodium (Colace) 100 mg Q12H PRN PO CONSTIPATION; Start 10/26/18 at 06:00 Bisacodyl (Dulcolax) 5 mg DAILY PRN PO CONSTIPATION; Start 10/26/18 at 06:00 Albuterol/ Ipratropium (Duoneb) 3 ml Q4H RESP THERAPY PRN HHN SHORTNESS OF BREATH Last administered on 10/27/18at 23:46; Admin Dose 3 ML; Start 10/26/18 at 06:00 Tramadol HCl (Ultram) 50 mg Q6H PRN PO MODERATE PAIN LEVEL 4-6 Last administered on 10/28/18 09:31; Admin Dose 50 MG; Start 10/26/18 at 11:30 Hydroxyzine HCl (Atarax) 50 mg Q8H PRN PO ITCHING; Start 10/26/18 at 11:30 Heparin Sodium (Porcine) (Heparin (5000 Units/1ml)) 5,000 unit Q12 SC Last administered on 10/28/18 08:10; Admin Dose 5,000 UNIT; Start 10/26/18 at 21:00 Acetaminophen (Tylenol Tab) 650 mg Q6H PRN PO PAIN LEVEL 1-3 OR FEVER Last administered on 10/27/18 09:51; Admin Dose 650 MG; Start 10/26/18 at 12:30 Aspirin (Halfprin) 81 mg DAILY PO Last administered on 10/28/18 08:06; Admin Dose 81 MG; Start 10/26/18 at 12:30 Carvedilol (Coreg) 25 mg Q8 PO Last administered on 10/28/18 06:24; Admin Dose 25 MG; Start 10/26/18 at 14:00 Clonidine (Catapres) 0.1 mg BID PO Last administered on 10/27/18 21:28; Admin Dose 0.1 MG; Start 10/26/18 at 12:30 Hydroxychloroquine Sulfate (Plaquenil) 200 mg DAILY PO Last administered on 10/27/18 09:50; Admin Dose 200 MG; Start 10/26/18 at 13:30 Lactobacillus Acidophilus/ Rhamnosus (Culturelle) 1 cap BID PO Last administered on 10/28/18 08:06; Admin Dose 1 CAP; Start 10/26/18 at 13:30 Losartan Potassium (Cozaar) 50 mg BID PO Last administered on 10/27/18 21:28; Admin Dose 50 MG; Start 10/26/18 at 12:30 Mycophenolate Mofetil (Cellcept) 1,000 mg BID PO Last administered on 10/28/18 08:09; Admin Dose 1,000 MG; Start 10/26/18 at 13:30 Sucralfate (Carafate) 1 gm QID PO Last administered on 10/28/18 08:06; Admin Dose 1 GM; Start 10/26/18 at 13:00 Epoetin Guanaco (Epogen (Esrd)) 6,000 units AFTER DIALYSIS SC Last administered on 10/26/18at 22:19; Admin Dose 6,000 UNITS; Start 10/26/18 at 17:00 Norepinephrine 250 ml @ 1.875 mls/ hr TITRATE IV ; Start 10/26/18 at 22:00 Nifedipine (Procardia) 20 mg Q6 PO Last administered on 10/28/18at 06:24; Admin Dose 20 MG; Start 10/27/18 at 00:00 Pantoprazole (Protonix Iv) 40 mg BID@06,18 IV Last administered on 10/28/18at 06:22; Admin Dose 40 MG; Start 10/27/18 at 06:00 Miscellaneous Information 1 ea NOTE XX ; Start 10/27/18 at 06:30 Glucose (Glutose) 15 gm Q15M PRN PO DECREASED GLUCOSE; Start 10/27/18 at 06:30 Glucose (Glutose) 22.5 gm Q15M PRN PO DECREASED GLUCOSE; Start 10/27/18 at 06:30 Dextrose (D50w Syringe) 25 ml Q15M PRN IV DECREASED GLUCOSE Last administered on 10/28/18at 00:14; Admin Dose 25 ML; Start 10/27/18 at 06:30 Dextrose (D50w Syringe) 50 ml Q15M PRN IV DECREASED GLUCOSE; Start 10/27/18 at 06:30 Glucagon (Glucagen) 1 mg Q15M PRN IM DECREASED GLUCOSE; Start 10/27/18 at 06:30 Glucose (Glutose) 15 gm Q15M PRN BUCCAL DECREASED GLUCOSE; Start 10/27/18 at 06:30 Vancomycin HCl (Vanco Iv Per Pharmacy) VANCOMYCIN PER PHARMACY PER PROTOCOL XX ; Start 10/27/18 at 08:00 Cefepime HCl 50 ml @ 100 mls/hr Q24H IVPB Last administered on 10/27/18at 08:33; Admin Dose 100 MLS/HR; Start 10/27/18 at 08:00 Morphine Sulfate (morphine) 1 mg Q2H PRN IV SEVERE PAIN LEVEL 7-10 Last administered on 10/28/18at 06:22; Admin Dose 1 MG; Start 10/27/18 at 16:00 Heparin Sodium (Porcine) (Heparin (1000 Units/ml)) 2,000 unit WITH DIALYSIS HE Last administered on 10/28/18at 09:15; Admin Dose 2,000 UNIT; Start 10/27/18 at 18:00 Albumin Human 50 ml @ 100 mls/hr WITH DIALYSIS PRN IV SBP lower than 90 mm Hg; Start 10/27/18 at 18:00 Sodium Chloride (NS) -To prime the dialy... DIRECTED FOR HD PRN IV SBP lower than 90 mm Hg; Start 10/27/18 at 18:00 Heparin Sodium (Porcine) (Heparin (1000 Units/ml)) 4,500 unit AFTER DIALYSIS CATHETER ; Start 10/28/18 at 09:30 DEVEN DOE Oct 28, 2018 10:08
[2018-10-28] MEDS: HEPARIN 1000 UNITS/ML 10 ML INJ CATHETER SCH (12:02)
[2018-10-28] MEDS: HYDROXYCHLOROQUINE 200 MG TAB PO SCH (12:04)
[2018-10-28] MEDS: LOSARTAN 50 MG TAB PO SCH ×2 (12:05→20:34)
[2018-10-28] MEDS: CEFEPIME 1GM/50 ML (PMX) 50 ML IVPB SCH (12:06)
[2018-10-28] MEDS: ACETAMINOPHEN 325 MG TAB PO PRN ×2 (12:50→17:34)
--- NOTE | 2018-10-28 13:58 | CONS ---
Date/Time of Note Date/Time of Note DATE: 10/28/18 TIME: 13:54 Consult Date/Type/Reason Admit Date/Time Oct 27, 2018 at 16:04 Initial Consult Date 10/28/18 Type of Consultation: Pulm/CCM Subjective s/p HD with UF 3 L today. Feels better. Objective Vital Signs Date Temp Pulse Resp B/P (MAP) Pulse Ox O2 O2 Flow FiO2 Time Delivery Rate 10/28/18 88 17 111/61 99 Nasal 6.0 13:00 (78) Cannula 10/28/18 98.7 12:00 10/28/18 45 01:11 Intake and Output 10/27/18 10/27/18 10/28/18 1515:00 23:00 07:00 IntakeIntake Total 532 ml 40 ml 50 ml OutputOutput Total 0 ml 0 ml 0 ml BalanceBalance 532 ml 40 ml 50 ml Exam NECK: Supple. Mild JVD CARDIAC: S1, S2. No added sounds or murmurs. CHEST: Diminished air entry bilaterally with few rales. ABDOMEN: Soft, nontender. No guarding or rebound. EXTREMITIES: No cyanosis, clubbing, or edema. NEUROLOGIC: Grossly intact. No focal deficits. Results/Medications Result Diagram: 10/28/18 0442 10/28/18 0442 Results 24 hrs Laboratory Tests Test 10/27/18 19:56 10/27/18 20:23 10/27/18 20:45 10/28/18 00:09 Bedside Glucose 72 148 124 75 Test 10/28/18 00:35 10/28/18 00:52 10/28/18 04:00 10/28/18 04:42 Bedside Glucose 128 110 83 White Blood 6.6 Count Red Blood Count 2.23 L Hemoglobin 7.1 L Hematocrit 23.2 L Mean Corpuscular 104.0 H Volume Mean Corpuscular 31.8 Hemoglobin Mean Corpuscular 30.6 L Hemoglobin Indira nt Red Cell 15.5 H Distribution Width Platelet Count 136 L Mean Platelet 12.2 H Volume Immature 0.200 Granulocytes % Neutrophils % 76.5 Lymphocytes % 15.5 Monocytes % 6.9 Eosinophils % 0.6 Basophils % 0.3 Nucleated Red 0.0 Blood Cells % Immature 0.010 Granulocytes # Neutrophils # 5.0 Lymphocytes # 1.0 Monocytes # 0.5 Eosinophils # 0.0 Basophils # 0.0 Nucleated Red 0.0 Blood Cells # Sodium Level 139 Potassium Level 4.5 Chloride Level 99 Carbon Dioxide 26 Level Anion Gap 14 H Blood Urea 49 #H Nitrogen Creatinine 6.69 #H Est Glomerular 7 L Filtrat Rate mL/min Glucose Level 83 Calcium Level 8.6 Magnesium Level 1.9 Total Bilirubin 0.0 L Direct Bilirubin 0.00 Indirect 0.0 Bilirubin Aspartate Amino 949 H Transf (AST/SGOT ) Alanine 847 H Aminotransferase (ALT/SGPT) Alkaline 90 Phosphatase Total Protein 5.8 L Albumin 2.9 L Globulin 2.90 Albumin/Globulin 1.00 Ratio Test 10/28/18 08:04 10/28/18 11:22 Bedside Glucose 87 94 Medications Current Medications IV Flush (NS 3 ml) 3 ml PER PROTOCOL IV ; Start 10/26/18 at 06:00 Ondansetron HCl (Zofran Inj) 4 mg Q6H PRN IV NAUSEA AND/OR VOMITING Last administered on 10/26/18at 09:44; Admin Dose 4 MG; Start 10/26/18 at 06:00 Nitroglycerin (Nitroglycerin (Sl Tab) 0.4 Mg) 1 tab Q5M PRN SL CHEST PAIN; Start 10/26/18 at 06:00 Docusate Sodium (Colace) 100 mg Q12H PRN PO CONSTIPATION; Start 10/26/18 at 06:00 Bisacodyl (Dulcolax) 5 mg DAILY PRN PO CONSTIPATION; Start 10/26/18 at 06:00 Albuterol/ Ipratropium (Duoneb) 3 ml Q4H RESP THERAPY PRN HHN SHORTNESS OF BREATH Last administered on 10/27/18at 23:46; Admin Dose 3 ML; Start 10/26/18 at 06:00 Tramadol HCl (Ultram) 50 mg Q6H PRN PO MODERATE PAIN LEVEL 4-6 Last administered on 10/28/18at 09:31; Admin Dose 50 MG; Start 10/26/18 at 11:30 Hydroxyzine HCl (Atarax) 50 mg Q8H PRN PO ITCHING; Start 10/26/18 at 11:30 Heparin Sodium (Porcine) (Heparin (5000 Units/1ml)) 5,000 unit Q12 SC Last administered on 10/28/18at 08:10; Admin Dose 5,000 UNIT; Start 10/26/18 at 21:00 Acetaminophen (Tylenol Tab) 650 mg Q6H PRN PO PAIN LEVEL 1-3 OR FEVER Last administered on 10/28/18 12:50; Admin Dose 650 MG; Start 10/26/18 at 12:30 Aspirin (Halfprin) 81 mg DAILY PO Last administered on 10/28/18 08:06; Admin Dose 81 MG; Start 10/26/18 at 12:30 Carvedilol (Coreg) 25 mg Q8 PO Last administered on 10/28/18 06:24; Admin Dose 25 MG; Start 10/26/18 at 14:00 Clonidine (Catapres) 0.1 mg BID PO Last administered on 10/28/18 12:05; Admin Dose 0.1 MG; Start 10/26/18 at 12:30 Hydroxychloroquine Sulfate (Plaquenil) 200 mg DAILY PO Last administered on 10/28/18 12:04; Admin Dose 200 MG; Start 10/26/18 at 13:30 Lactobacillus Acidophilus/ Rhamnosus (Culturelle) 1 cap BID PO Last administered on 10/28/18 08:06; Admin Dose 1 CAP; Start 10/26/18 at 13:30 Losartan Potassium (Cozaar) 50 mg BID PO Last administered on 10/28/18 12:05; Admin Dose 50 MG; Start 10/26/18 at 12:30 Mycophenolate Mofetil (Cellcept) 1,000 mg BID PO Last administered on 10/28/18 08:09; Admin Dose 1,000 MG; Start 10/26/18 at 13:30 Sucralfate (Carafate) 1 gm QID PO Last administered on 10/28/18 12:39; Admin Dose 1 GM; Start 10/26/18 at 13:00 Epoetin Guanaco (Epogen (Esrd)) 6,000 units AFTER DIALYSIS SC Last administered on 10/26/18 22:19; Admin Dose 6,000 UNITS; Start 10/26/18 at 17:00 Norepinephrine 250 ml @ 1.875 mls/ hr TITRATE IV ; Start 10/26/18 at 22:00 Nifedipine (Procardia) 20 mg Q6 PO Last administered on 10/28/18 12:04; Admin Dose 20 MG; Start 10/27/18 at 00:00 Pantoprazole (Protonix Iv) 40 mg BID@06,18 IV Last administered on 10/28/18at 06:22; Admin Dose 40 MG; Start 10/27/18 at 06:00 Miscellaneous Information 1 ea NOTE XX ; Start 10/27/18 at 06:30 Glucose (Glutose) 15 gm Q15M PRN PO DECREASED GLUCOSE; Start 10/27/18 at 06:30 Glucose (Glutose) 22.5 gm Q15M PRN PO DECREASED GLUCOSE; Start 10/27/18 at 06:30 Dextrose (D50w Syringe) 25 ml Q15M PRN IV DECREASED GLUCOSE Last administered on 10/28/18at 00:14; Admin Dose 25 ML; Start 10/27/18 at 06:30 Dextrose (D50w Syringe) 50 ml Q15M PRN IV DECREASED GLUCOSE; Start 10/27/18 at 06:30 Glucagon (Glucagen) 1 mg Q15M PRN IM DECREASED GLUCOSE; Start 10/27/18 at 06:30 Glucose (Glutose) 15 gm Q15M PRN BUCCAL DECREASED GLUCOSE; Start 10/27/18 at 0 6:30 Vancomycin HCl (Vanco Iv Per Pharmacy) VANCOMYCIN PER PHARMACY PER PROTOCOL XX ; Start 10/27/18 at 08:00 Cefepime HCl 50 ml @ 100 mls/hr Q24H IVPB Last administered on 10/28/18at 12:06; Admin Dose 100 MLS/HR; Start 10/27/18 at 08:00 Morphine Sulfate (morphine) 1 mg Q2H PRN IV SEVERE PAIN LEVEL 7-10 Last administered on 10/28/18at 12:39; Admin Dose 1 MG; Start 10/27/18 at 16:00 Heparin Sodium (Porcine) (Heparin (1000 Units/ml)) 2,000 unit WITH DIALYSIS HE Last administered on 10/28/18at 09:15; Admin Dose 2,000 UNIT; Start 10/27/18 at 18:00 Albumin Human 50 ml @ 100 mls/hr WITH DIALYSIS PRN IV SBP lower than 90 mm Hg; Start 10/27/18 at 18:00 Sodium Chloride (NS) -To prime the dialy... DIRECTED FOR HD PRN IV SBP lower than 90 mm Hg; Start 10/27/18 at 18:00 Heparin Sodium (Porcine) (Heparin (1000 Units/ml)) 4,500 unit AFTER DIALYSIS CATHETER Last administered on 10/28/18at 12:02; Admin Dose 4,500 UNIT; Start 10/28/18 at 09:30 Assessment/Plan Additional Assessment/Plan IMP: 1. Acute hypoxemic respiratory failure, likely secondary to volume overload. 2. 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 3. History of systemic lupus erythematosus. 4. History of pericardial effusion/pleural effusion 5. Anemia RECS: 1. s/p successful extubation 2. Continue HD/UF 3. Titrate FiO2 4. F/U pleural fluid studies 5. Consider transfusion 1 unit PRBC with next HD 35 min cc time ERIC CARBONE MD Oct 28, 2018 13:58
--- NOTE | 2018-10-28 14:54 | NUR ---
ST NOTE; attempted swallow eval earlier but pt still on dialysis; unable to come back to st schedule; pt on full liquids; will assess tomorrow as there is speech coverage tomorrow on tuesday
[2018-10-28] MEDS: EPOETIN 3000 UNITS/1 ML INJ (ESRD) SC SCH (15:43)
--- NOTE | 2018-10-28 16:03 | NUR ---
UNIT TRANSFER Patient to be transferred to room 62. Report given to ALTAGRACIA Brown. Patient and Patient's mother aware. Addendum: 10/28/18 at 1640 by GAEL SOLER RN PATIENT TRANSFERRED WITH NO ACUTE DISTRESS. PATIENT'S MOTHER AT BEDSIDE. RECEIVING LI FRIAS, ALSO AT BEDSIDE. ALL BELONGINGS WITH PATIENT AND HER MOTHER.
--- NOTE | 2018-10-28 16:35 | NUR ---
EOSS;PT RECIEVED FROM ICU AT THIS TIME BY BED;PT IS AWAKE,ALERT,ORIENTED X4;VSS;MONITOR INDICATES NSR;PT C/O 05/09 PAIN LEVEL;CON'T POC
[2018-10-28] MEDS: morphine SULFATE/PF (2 MG/2 ML) SYG IV PRN ×2 (18:39→21:36)
[2018-10-29] VITALS (11 sets, daily range): BP systolic 103–149; BP diastolic 55–71; PULSE 71–80; RESP 18–19
[2018-10-29] MEDS ORDERED: DIPHENHYDRAMINE 50 MG CAP PO PRN (00:30)
[2018-10-29] MEDS: ACETAMINOPHEN 325 MG TAB PO PRN ×2 (00:55→22:18)
--- NOTE | 2018-10-29 01:00 | NUR ---
Temp 100 at change of shift, rechecked to be 99 F, wnl. 0000 Vitals: temp also 100, Dr. Lang notified. Ordered to give PRN Tylenol. Benadryl also given for itching.
[2018-10-29] MEDS: morphine SULFATE/PF (2 MG/2 ML) SYG IV PRN ×6 (03:45→20:18)
[2018-10-29] MEDS: NIFEdipine 10 MG CAP PO SCH ×4 (06:00→17:11)
[2018-10-29] MEDS: PANTOPRAZOLE 40 MG INJ IV SCH ×2 (06:00→17:11)
[2018-10-29] MEDS: SUCRALFATE 1 GM TAB PO SCH ×4 (08:15→22:21)
[2018-10-29] MEDS: ASPIRIN (EC) 81 MG TAB PO SCH (08:16)
[2018-10-29] MEDS: LOSARTAN 50 MG TAB PO SCH ×2 (08:17→20:17)
[2018-10-29] MEDS: MYCOPHENOLATE 250 MG CAP PO SCH ×2 (08:18→22:18)
[2018-10-29] MEDS: CEFEPIME 1GM/50 ML (PMX) 50 ML IVPB SCH (08:18)
--- NOTE | 2018-10-29 08:44 | NUR ---
RX NOTE RE: VANCOMYCIN DAY# 3 OF VANCO PER RX BUN/SCR: 19/3.77 WBC: 7.3 TMAX: 100.1 ALLERGIES: HYDROCODONE, TAPE OTHER ABX: CEFEPIME VANCO RANDOM: 14.3 GIVE VANCOMYCIN 1GM X1 TODAY. PHARMACY TO FOLLOW.
[2018-10-29] MEDS: HEPARIN 5,000 UNIT/1 ML VIAL SC SCH ×2 (08:45→20:47)
--- NOTE | 2018-10-29 09:36 | NUR ---
EOSS N: Morphine prn given x3 with good effect. CV: Unremarkable R: NC 2LPM, no SOB or dyspnea noted. GI: Clear liquids : Pedraza, no output noted. MS: Q2hr turning. No wounds noted. Benadryl given PO due to itching. H/H noted to be 6.3/20.1 at end of shift. 1 unit ready to be transfused. Endorsed to AM shift. All of patient's needs attended to
[2018-10-29] MEDS: HYDROXYCHLOROQUINE 200 MG TAB PO SCH (09:39)
[2018-10-29] MEDS: LACTOBACILLUS RHAMNOSUS CAP PO SCH ×2 (09:39→20:18)
--- NOTE | 2018-10-29 09:56 | CONS ---
Date/Time of Note Date/Time of Note DATE: 10/29/18 TIME: 09:56 Assessment/Plan Assessment/Plan Assessment/Plan 1. Acute fluid overload 2. ESRD on HD Tue, , tuesday schedule 3. H/o Lupus 4. H.o HTN 5. h.o HL 6. H/o Moderat R Pleural effusion s/p US guided thoracentesis 500 cc drained on 09/19/18 Plan: s/p HD 10/28/18 3 L removed, Bp stable, will order HD for tomorrow if pt stays here losartan 50mg BID, Clonidine 0.1 mg PO BID and Coreg 25 mg pO Q 8 hr, Bp stable today pt follows at [place] [facility] for scheduled HD on next HD will be on Tuesday then pt will be on tue, , Tuesday schedule will follow up Result Diagram: 10/29/18 0500 10/29/18 0500 Results 24hrs Laboratory Tests Test 10/28/18 11:22 10/29/18 05:00 Bedside Glucose 94 White Blood Count 7.3 Red Blood Count 1.95 L Hemoglobin 6.3 *L Hematocrit 20.1 L Mean Corpuscular Volume 103.1 H Mean Corpuscular Hemoglobin 32.3 Mean Corpuscular Hemoglobin Concent 31.3 L Red Cell Distribution Width 15.2 H Platelet Count 128 L Mean Platelet Volume 12.2 H Immature Granulocytes % 0.400 Neutrophils % 70.3 Lymphocytes % 17.9 Monocytes % 8.9 Eosinophils % 2.1 Basophils % 0.4 Nucleated Red Blood Cells % 0.0 Immature Granulocytes # 0.030 Neutrophils # 5.1 Lymphocytes # 1.3 Monocytes # 0.7 Eosinophils # 0.2 Basophils # 0.0 Nucleated Red Blood Cells # 0.0 Prothrombin Time 16.3 H Prothrombin Time Ratio 1.3 INR International Normalized Ratio 1.29 Sodium Level 137 Potassium Level 3.9 Chloride Level 100 Carbon Dioxide Level 31 Anion Gap 6 # Blood Urea Nitrogen 19 # Creatinine 3.77 #H Est Glomerular Filtrat Rate mL/min 14 L Glucose Level 91 Calcium Level 8.5 Total Bilirubin 0.0 L Direct Bilirubin 0.00 Indirect Bilirubin 0.0 Aspartate Amino Transf (AST/SGOT) 644 H Alanine Aminotransferase (ALT/SGPT) 837 H Alkaline Phosphatase 97 Total Protein 6.3 Albumin 3.0 L Globulin 3.30 H Albumin/Globulin Ratio 0.90 Random Vancomycin Level 14.3 Hepatitis B Surface Antibody NEGATIVE Hepatitis B Core Total Antibody NEGATIVE Consultation Date/Type/Reason Admit Date/Time Oct 27, 2018 at 16:04 Initial Consult Date Type of Consult NEPHROLOGY Exam/Review of Systems Vital Signs Vitals Vital Signs Date Temp Pulse Resp B/P (MAP) Pulse Ox O2 O2 Flow FiO2 Time Delivery Rate 10/29/18 73 08:51 10/29/18 98.4 18 115/58 95 07:55 (77) 10/29/18 Nasal 04:12 Cannula 10/28/18 2.0 22:00 10/28/18 45 01:11 Intake and Output 10/28/18 10/28/18 10/29/18 1515:00 23:00 07:00 IntakeIntake Total 530 ml 0 ml OutputOutput Total 3410 ml 0 ml BalanceBalance -2880 ml 0 ml Exam Constitutional: alert, awake, no acute distress Respiratory: crackles/rales, diminished breath sounds Cardiovascular: regular rate and rhythm, nl pulses Gastrointestinal: soft Musculoskeletal: nl extremities to inspection, muscle weakness, swelling Neurological: AGILE BUSINESS 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 II-XII intact, other (Non focal ) Medications Medications Current Medications IV Flush (NS 3 ml) 3 ml PER PROTOCOL IV ; Start 10/26/18 at 06:00 Ondansetron HCl (Zofran Inj) 4 mg Q6H PRN IV NAUSEA AND/OR VOMITING Last administered on 10/26/18at 09:44; Admin Dose 4 MG; Start 10/26/18 at 06:00 Nitroglycerin (Nitroglycerin (Sl Tab) 0.4 Mg) 1 tab Q5M PRN SL CHEST PAIN; Start 10/26/18 at 06:00 Docusate Sodium (Colace) 100 mg Q12H PRN PO CONSTIPATION; Start 10/26/18 at 06:00 Bisacodyl (Dulcolax) 5 mg DAILY PRN PO CONSTIPATION; Start 10/26/18 at 06:00 Albuterol/ Ipratropium (Duoneb) 3 ml Q4H RESP THERAPY PRN HHN SHORTNESS OF BREATH Last administered on 10/27/18at 23:46; Admin Dose 3 ML; Start 10/26/18 at 06:00 Tramadol HCl (Ultram) 50 mg Q6H PRN PO MODERATE PAIN LEVEL 4-6 Last administered on 10/28/18 09:31; Admin Dose 50 MG; Start 10/26/18 at 11:30 Hydroxyzine HCl (Atarax) 50 mg Q8H PRN PO ITCHING; Start 10/26/18 at 11:30 Heparin Sodium (Porcine) (Heparin (5000 Units/1ml)) 5,000 unit Q12 SC Last administered on 10/29/18 08:45; Admin Dose 5,000 UNIT; Start 10/26/18 at 21:00 Acetaminophen (Tylenol Tab) 650 mg Q6H PRN PO PAIN LEVEL 1-3 OR FEVER Last administered on 10/29/18 00:55; Admin Dose 650 MG; Start 10/26/18 at 12:30 Aspirin (Halfprin) 81 mg DAILY PO Last administered on 10/29/18 08:16; Admin Dose 81 MG; Start 10/26/18 at 12:30 Carvedilol (Coreg) 25 mg Q8 PO Last administered on 10/28/18at 14:11; Admin Dose 25 MG; Start 10/26/18 at 14:00 Clonidine (Catapres) 0.1 mg BID PO Last administered on 10/28/18 12:05; Admin Dose 0.1 MG; Start 10/26/18 at 12:30 Hydroxychloroquine Sulfate (Plaquenil) 200 mg DAILY PO Last administered on 09:39; Admin Dose 200 MG; Start 10/26/18 at 13:30 Lactobacillus Acidophilus/ Rhamnosus (Culturelle) 1 cap BID PO Last administered on 10/29/18 09:39; Admin Dose 1 CAP; Start 10/26/18 at 13:30 Losartan Potassium (Cozaar) 50 mg BID PO Last administered on 10/29/18 08:17; Admin Dose 50 MG; Start 10/26/18 at 12:30 Mycophenolate Mofetil (Cellcept) 1,000 mg BID PO Last administered on 10/29/18 08:18; Admin Dose 1,000 MG; Start 10/26/18 at 13:30 Sucralfate (Carafate) 1 gm QID PO Last administered on 10/29/18 08:15; Admin Dose 1 GM; Start 10/26/18 at 13:00 Epoetin Guanaco (Epogen (Esrd)) 6,000 units AFTER DIALYSIS SC Last administered on 10/28/18at 15:43; Admin Dose 6,000 UNITS; Start 10/26/18 at 17:00 Norepinephrine 250 ml @ 1.875 mls/ hr TITRATE IV ; Start 10/26/18 at 22:00 Nifedipine (Procardia) 20 mg Q6 PO Last administered on 10/28/18at 18:40; Admin Dose 20 MG; Start 10/27/18 at 00:00 Pantoprazole (Protonix Iv) 40 mg BID@06,18 IV Last administered on 10/29/18at 06:00; Admin Dose 40 MG; Start 10/27/18 at 06:00 Miscellaneous Information 1 ea NOTE XX ; Start 10/27/18 at 06:30 Glucose (Glutose) 15 gm Q15M PRN PO DECREASED GLUCOSE; Start 10/27/18 at 06:30 Glucose (Glutose) 22.5 gm Q15M PRN PO DECREASED GLUCOSE; Start 10/27/18 at 06:30 Dextrose (D50w Syringe) 25 ml Q15M PRN IV DECREASED GLUCOSE Last administered on 10/28/18at 00:14; Admin Dose 25 ML; Start 10/27/18 at 06:30 Dextrose (D50w Syringe) 50 ml Q15M PRN IV DECREASED GLUCOSE; Start 10/27/18 at 06:30 Glucagon (Glucagen) 1 mg Q15M PRN IM DECREASED GLUCOSE; Start 10/27/18 at 06:30 Glucose (Glutose) 15 gm Q15M PRN BUCCAL DECREASED GLUCOSE; Start 10/27/18 at 06:30 Vancomycin HCl (Vanco Iv Per Pharmacy) VANCOMYCIN PER PHARMACY PER PROTOCOL XX ; Start 10/27/18 at 08:00 Cefepime HCl 50 ml @ 100 mls/hr Q24H IVPB Last administered on 10/29/18at 08:18; Admin Dose 100 MLS/HR; Start 10/27/18 at 08:00 Heparin Sodium (Porcine) (Heparin (1000 Units/ml)) 2,000 unit WITH DIALYSIS HE Last administered on 10/28/18at 09:15; Admin Dose 2,000 UNIT; Start 10/27/18 at 18:00 Albumin Human 50 ml @ 100 mls/hr WITH DIALYSIS PRN IV SBP lower than 90 mm Hg; Start 10/27/18 at 18:00 Sodium Chloride (NS) -To prime the dialy... DIRECTED FOR HD PRN IV SBP lower than 90 mm Hg; Start 10/27/18 at 18:00 Heparin Sodium (Porcine) (Heparin (1000 Units/ml)) 4,500 unit AFTER DIALYSIS CATHETER Last administered on 10/28/18at 12:02; Admin Dose 4,500 UNIT; Start 10/28/18 at 09:30 Morphine Sulfate (morphine SULFATE (PF)) 1 mg Q2H PRN IV SEVERE PAIN LEVEL 7-10 Last administered on 10/29/18at 08:47; Admin Dose 1 MG; Start 10/28/18 at 18:30 Diphenhydramine HCl (Benadryl) 50 mg ONCE PRN PO Itching Last administered on 10/29/18at 00:55; Admin Dose 50 MG; Start 10/29/18 at 00:30 Vancomycin HCl 250 ml @ 125 mls/hr ONCE IVPB ; Start 10/29/18 at 14:00; Stop 10/30/18 at 20:00 ARTURO AMADOR MD Oct 29, 2018 09:56
[2018-10-29] MEDS: ONDANSETRON 4 MG INJ IV PRN (12:42)
--- NOTE | 2018-10-29 13:03 | PN ---
Date/Time of Note Date/Time of Note DATE: 10/29/18 TIME: 12:46 Assessment/Plan VTE Prophylaxis Risk score (from Ns)>0 risk: 4 SCD applied (from Ns): Yes Pharmacological prophylaxis: other (scds) Lines/Catheters IV [facility]from [facility] Mid [facility] Urinary Cath still in place: Yes Reason Cath still needed: other (indicate) (monitor output) Assessment/Plan Hospital Course Summary Assessment and Plan: Assessment: Acute liver injury - likely secondary to hypoperfusion- LFTS down today Chronic pancreatitis Acute Resp failure- pt was intubated 10/26 -S/p extubation 10/27/18 Moderate L sided pleural effusion Chronic anemia Thrombocytopenia End-stage renal disease on hemodialysis. -Commenced on HD, Nephro following Lupus nephritis. Hypertension. Hx of Pericardial effusion, small to moderate Anxiety Plan: Monitor labs Drop in HGB- 1 unit PRBC's transfused today No overt signs of GI bleed- continue close observation Patient seen in collaboration with Dr. Potter/Cintia Subjective: Course reviewed with nursing staff Patient interviewed and examined All labs, imaging and other results reviewed The patient resting in bed, family at her bedside She denies melena, hematemesis, or hematochezia Continue observation. PHYSICAL EXAMINATION: GENERAL: Chronically ill appearing SKIN: Facial erythremia improved from last admission CARDIOVASCULAR: Heart: Regular rate and rhythm RESPIRATORY: Diminished GASTROINTESTINAL AND LIVER: Abdomen: Soft, non tenderness, non-distended, no hernias, no masses, normoactive bowel sounds. Rectal: Deferred. Result Diagram: 10/29/18 0500 10/29/18 0500 Results 24hrs Laboratory Tests Test 10/29/18 05:00 White Blood Count 7.3 Red Blood Count 1.95 L Hemoglobin 6.3 *L Hematocrit 20.1 L Mean Corpuscular Volume 103.1 H Mean Corpuscular Hemoglobin 32.3 Mean Corpuscular Hemoglobin Concent 31.3 L Red Cell Distribution Width 15.2 H Platelet Count 128 L Mean Platelet Volume 12.2 H Immature Granulocytes % 0.400 Neutrophils % 70.3 Lymphocytes % 17.9 Monocytes % 8.9 Eosinophils % 2.1 Basophils % 0.4 Nucleated Red Blood Cells % 0.0 Immature Granulocytes # 0.030 Neutrophils # 5.1 Lymphocytes # 1.3 Monocytes # 0.7 Eosinophils # 0.2 Basophils # 0.0 Nucleated Red Blood Cells # 0.0 Prothrombin Time 16.3 H Prothrombin Time Ratio 1.3 INR International Normalized Ratio 1.29 Sodium Level 137 Potassium Level 3.9 Chloride Level 100 Carbon Dioxide Level 31 Anion Gap 6 # Blood Urea Nitrogen 19 # Creatinine 3.77 #H Est Glomerular Filtrat Rate mL/min 14 L Glucose Level 91 Calcium Level 8.5 Total Bilirubin 0.0 L Direct Bilirubin 0.00 Indirect Bilirubin 0.0 Aspartate Amino Transf (AST/SGOT) 644 H Alanine Aminotransferase (ALT/SGPT) 837 H Alkaline Phosphatase 97 Total Protein 6.3 Albumin 3.0 L Globulin 3.30 H Albumin/Globulin Ratio 0.90 Random Vancomycin Level 14.3 Hepatitis B Surface Antibody NEGATIVE Hepatitis B Core Total Antibody NEGATIVE Exam/Review of Systems Vital Signs Vitals Vital Signs Date Temp Pulse Resp B/P (MAP) Pulse Ox O2 O2 Flow FiO2 Time Delivery Rate 10/29/18 98.9 76 18 149/71 94 11:06 (97) 10/29/18 2.0 08:35 10/29/18 Nasal 08:35 Cannula 10/28/18 45 01:11 Intake and Output 10/28/18 10/28/18 10/29/18 1515:00 23:00 07:00 IntakeIntake Total 530 ml 0 ml OutputOutput Total 3410 ml 0 ml BalanceBalance -2880 ml 0 ml Medications Medications Current Medications IV Flush (NS 3 ml) 3 ml PER PROTOCOL IV ; Start 10/26/18 at 06:00 Ondansetron HCl (Zofran Inj) 4 mg Q6H PRN IV NAUSEA AND/OR VOMITING Last administered on 10/26/18at 09:44; Admin Dose 4 MG; Start 10/26/18 at 06:00 Nitroglycerin (Nitroglycerin (Sl Tab) 0.4 Mg) 1 tab Q5M PRN SL CHEST PAIN; Start 10/26/18 at 06:00 Docusate Sodium (Colace) 100 mg Q12H PRN PO CONSTIPATION; Start 10/26/18 at 06:00 Bisacodyl (Dulcolax) 5 mg DAILY PRN PO CONSTIPATION; Start 10/26/18 at 06:00 Albuterol/ Ipratropium (Duoneb) 3 ml Q4H RESP THERAPY PRN HHN SHORTNESS OF BREATH Last administered on 10/27/18 23:46; Admin Dose 3 ML; Start 10/26/18 at 06:00 Tramadol HCl (Ultram) 50 mg Q6H PRN PO MODERATE PAIN LEVEL 4-6 Last admi nistered on 10/28/18 09:31; Admin Dose 50 MG; Start 10/26/18 at 11:30 Hydroxyzine HCl (Atarax) 50 mg Q8H PRN PO ITCHING; Start 10/26/18 at 11:30 Heparin Sodium (Porcine) (Heparin (5000 Units/1ml)) 5,000 unit Q12 SC Last administered on 10/29/18 08:45; Admin Dose 5,000 UNIT; Start 10/26/18 at 21:00 Acetaminophen (Tylenol Tab) 650 mg Q6H PRN PO PAIN LEVEL 1-3 OR FEVER Last administered on 10/29/18 00:55; Admin Dose 650 MG; Start 10/26/18 at 12:30 Aspirin (Halfprin) 81 mg DAILY PO Last administered on 10/29/18 08:16; Admin Dose 81 MG; Start 10/26/18 at 12:30 Carvedilol (Coreg) 25 mg Q8 PO Last administered on 10/28/18 14:11; Admin Dose 25 MG; Start 10/26/18 at 14:00 Clonidine (Catapres) 0.1 mg BID PO Last administered on 10/29/18 11:01; Admin Dose 0.1 MG; Start 10/26/18 at 12:30 Hydroxychloroquine Sulfate (Plaquenil) 200 mg DAILY PO Last administered on 10/29/18 09:39; Admin Dose 200 MG; Start 10/26/18 at 13:30 Lactobacillus Acidophilus/ Rhamnosus (Culturelle) 1 cap BID PO Last administered on 10/29/18 09:39; Admin Dose 1 CAP; Start 10/26/18 at 13:30 Losartan Potassium (Cozaar) 50 mg BID PO Last administered on 10/29/18 08:17; Admin Dose 50 MG; Start 10/26/18 at 12:30 Mycophenolate Mofetil (Cellcept) 1,000 mg BID PO Last administered on 8at 08:18; Admin Dose 1,000 MG; Start 10/26/18 at 13:30 Sucralfate (Carafate) 1 gm QID PO Last administered on 10/29/18at 08:15; Admin Dose 1 GM; Start 10/26/18 at 13:00 Epoetin Guanaco (Epogen (Esrd)) 6,000 units AFTER DIALYSIS SC Last administered on 10/28/18at 15:43; Admin Dose 6,000 UNITS; Start 10/26/18 at 17:00 Norepinephrine 250 ml @ 1.875 mls/ hr TITRATE IV ; Start 10/26/18 at 22:00 Nifedipine (Procardia) 20 mg Q6 PO Last administered on 10/28/18at 18:40; Admin Dose 20 MG; Start 10/27/18 at 00:00 Pantoprazole (Protonix Iv) 40 mg BID@06,18 IV Last administered on 10/29/18at 06:00; Admin Dose 40 MG; Start 10/27/18 at 06:00 Miscellaneous Information 1 ea NOTE XX ; Start 10/27/18 at 06:30 Glucose (Glutose) 15 gm Q15M PRN PO DECREASED GLUCOSE; Start 10/27/18 at 06:30 Glucose (Glutose) 22.5 gm Q15M PRN PO DECREASED GLUCOSE; Start 10/27/18 at 06:30 Dextrose (D50w Syringe) 25 ml Q15M PRN IV DECREASED GLUCOSE Last administered on 10/28/18at 00:14; Admin Dose 25 ML; Start 10/27/18 at 06:30 Dextrose (D50w Syringe) 50 ml Q15M PRN IV DECREASED GLUCOSE; Start 10/27/18 at 06:30 Glucagon (Glucagen) 1 mg Q15M PRN IM DECREASED GLUCOSE; Start 10/27/18 at 06:30 Glucose (Glutose) 15 gm Q15M PRN BUCCAL DECREASED GLUCOSE; Start 10/27/18 at 06:30 Vancomycin HCl (Vanco Iv Per Pharmacy) VANCOMYCIN PER PHARMACY PER PROTOCOL XX ; Start 10/27/18 at 08:00 Cefepime HCl 50 ml @ 100 mls/hr Q24H IVPB Last administered on 10/29/18at 08:18; Admin Dose 100 MLS/HR; Start 10/27/18 at 08:00 Heparin Sodium (Porcine) (Heparin (1000 Units/ml)) 2,000 unit WITH DIALYSIS HE Last administered on 10/28/18at 09:15; Admin Dose 2,000 UNIT; Start 10/27/18 at 18:00 Albumin Human 50 ml @ 100 mls/hr WITH DIALYSIS PRN IV SBP lower than 90 mm Hg; Start 10/27/18 at 18:00 Sodium Chloride (NS) -To prime the dialy... DIRECTED FOR HD PRN IV SBP lower than 90 mm Hg; Start 10/27/18 at 18:00 Heparin Sodium (Porcine) (Heparin (1000 Units/ml)) 4,500 unit AFTER DIALYSIS CATHETER Last administered on 10/28/18at 12:02; Admin Dose 4,500 UNIT; Start 10/28/18 at 09:30 Morphine Sulfate (morphine SULFATE (PF)) 1 mg Q2H PRN IV SEVERE PAIN LEVEL 7-10 Last administered on 10/29/18at 08:47; Admin Dose 1 MG; Start 10/28/18 at 18:30 Diphenhydramine HCl (Benadryl) 50 mg ONCE PRN PO Itching Last administered on 10/29/18at 00:55; Admin Dose 50 MG; Start 10/29/18 at 00:30 Vancomycin HCl 250 ml @ 125 mls/hr ONCE IVPB ; Start 10/29/18 at 14:00; Stop 10/30/18 at 20:00 DEVEN DOE Oct 29, 2018 13:02
--- NOTE | 2018-10-29 13:24 | NUR ---
Clinical Bedside Swallow Evaluation Completed: Brief Hx: Cynthia is a 33-year-old unfortunate female with a history of lupus that has caused severe lupus nephritis. It has resulted in endstage renal disease and she is maintained on hemodialysis on a Tuesday, , Tuesday schedule. She also has a history of hypertension and chronic thrombocytopenia. She presents today with a 1-day history of epigastric/substernal chest pain which she states woke her up from sleep and associated with a feeling of inability to breathe but without fever or chills. She also denies cough. She is not very ambulant and is mainly wheelchair bound. She resides at home with her family that helps care for her. She denies passing out episodes, she denies extremity swelling, she denies dysuria or hematuria. She denies constipation or melanotic stools as well. Intubated x2 days in ICU PAST MEDICAL HISTORY: 1. Endstage renal disease on hemodialysis. 2. Anemia of chronic kidney disease. 3. Lupus complicated by lupus nephritis. 4. Chronic pancreatitis. 5. Hypertension. 6. Chronic anxiety. 7. Chronic thrombocytopenia. 8. Recent vancomycin-resistant enterococci urinary tract infection. 9. History of pleural effusion, status post recent thoracentesis in August. 10. Known cavernoma in the brain. Vitals: temp: 98.9; RR: 19-21; SPO2: 995 on 2 liters/min on NC Labs: WBC: 7.3; Hgb/hct: .3L/20.1L; Plt C: 128L; BUN: 19; Cr level: 3.77H Chest XR completed on 10/29/2018: FINDINGS: There is a right-sided dialysis catheter with its tip in the SVC. Heart is enlarged. There is mild pulmonary vascular congestion and small effusions. Findings are overall improved. Mild pulmonary vascular congestion and small effusions. Findings have overall improved since the prior exam. Pt is known to speech therapy department and was last seen on 08/08/2018 and was safely tolerating regular diet and thin liquids Current diet: full liquid PLOF: regular/thin liquids Subjective assessment of cognition specific to swallow safety: Awake, alert, oriented x4, following commands and family present at bedside. Pt reported pain in 8/10 inconsistently throughout the session. Pt's vocal quality is mild hoarseness characterized by raspiness and diplophonic s/p intubation. Oral mechanism examination completed: Face is symmetrical, lips, tongue and soft palate are symmetrical with 3+/5 tongue strength, dentition noted. Pt reported that it "still hurts when she swallows, " s/p suspected edema throughout the hyolaryngeal excursion from the intubation tube. P.O trials consisting of the following: thin liquids by cup x 5, jello x 3, pudding x 2 and soft piece of bread x1. pt required min assistance due to generalized weakness Oral phase of swallow: Mildly reduced lingual strength, but does not impact overall oral motor strength/coordination. Prolonged mastication and slower manipulation and cohesive formation with soft bread and more timely with jello and pudding. No anterior oral leakage or residue in the oral cavity after the swallow. Delayed anterior to posterior transit. Oral control was wfl and no suspected premature loss into the hypopharynx before initiation of the swallow. Pharyngeal phase of swallow: Trigger of swallow was timely. Hyolaryngeal excursion and elevation was wfl. Mildly suspected residue in the pharyngeal cavity after the initial swallow and cleared with liquid wash. No overt s/s of aspiration or penetration. Coordination was WFL during and after the swallow. Vocal quality was clear but hoarse after each p.o trial. Impression: Functional swallow with odynophagia s/p intubation w/ generalized weakness and debility. Pt is safe to continue with full liquid diet and not ready to advance to a less restrictive p.o diet. Recommendation: 1. Continue full liquid diet and ongoing swallow assessment 2. administer whole medication with liquids 3. Follow aspiration/Swallow precautions (HOB upright, single bites/sips at a slow rate and remain upright for one hour after meals. Addendum: 10/29/18 at 1340 by NIXON BUTLER 4. Initiate dysphagia therapy 1-3x per week for 1 week to assess tolerance with diet.
--- NOTE | 2018-10-29 13:59 | CONS ---
Date/Time of Note Date/Time of Note DATE: 10/29/18 TIME: 13:57 Consult Date/Type/Reason Admit Date/Time Oct 27, 2018 at 16:04 Initial Consult Date 10/28/18 Type of Consultation: Pulm/CCM Subjective Better. Now on NC at 3L/min. Objective Vital Signs Date Temp Pulse Resp B/P (MAP) Pulse Ox O2 O2 Flow FiO2 Time Delivery Rate 10/29/18 98.9 76 18 149/71 94 11:06 (97) 10/29/18 2.0 08:35 10/29/18 Nasal 08:35 Cannula 10/28/18 45 01:11 Intake and Output 10/28/18 10/28/18 10/29/18 1414:59 22:59 06:59 IntakeIntake Total 530 ml 0 ml OutputOutput Total 3410 ml 0 ml BalanceBalance -2880 ml 0 ml Exam HEENT: Neck supple; no JVD; no LAD CVS: RRR, S1 and S2 CHEST: Clear ABD: Soft, NT, + BS EXT: No c/c/e Results/Medications Result Diagram: 10/29/18 0500 10/29/18 0500 Results 24 hrs Laboratory Tests Test 10/29/18 05:00 White Blood Count 7.3 Red Blood Count 1.95 L Hemoglobin 6.3 *L Hematocrit 20.1 L Mean Corpuscular Volume 103.1 H Mean Corpuscular Hemoglobin 32.3 Mean Corpuscular Hemoglobin Concent 31.3 L Red Cell Distribution Width 15.2 H Platelet Count 128 L Mean Platelet Volume 12.2 H Immature Granulocytes % 0.400 Neutrophils % 70.3 Lymphocytes % 17.9 Monocytes % 8.9 Eosinophils % 2.1 Basophils % 0.4 Nucleated Red Blood Cells % 0.0 Immature Granulocytes # 0.030 Neutrophils # 5.1 Lymphocytes # 1.3 Monocytes # 0.7 Eosinophils # 0.2 Basophils # 0.0 Nucleated Red Blood Cells # 0.0 Prothrombin Time 16.3 H Prothrombin Time Ratio 1.3 INR International Normalized Ratio 1.29 Sodium Level 137 Potassium Level 3.9 Chloride Level 100 Carbon Dioxide Level 31 Anion Gap 6 # Blood Urea Nitrogen 19 # Creatinine 3.77 #H Est Glomerular Filtrat Rate mL/min 14 L Glucose Level 91 Calcium Level 8.5 Total Bilirubin 0.0 L Direct Bilirubin 0.00 Indirect Bilirubin 0.0 Aspartate Amino Transf (AST/SGOT) 644 H Alanine Aminotransferase (ALT/SGPT) 837 H Alkaline Phosphatase 97 Total Protein 6.3 Albumin 3.0 L Globulin 3.30 H Albumin/Globulin Ratio 0.90 Random Vancomycin Level 14.3 Hepatitis B Surface Antibody NEGATIVE Hepatitis B Core Total Antibody NEGATIVE Medications Current Medications IV Flush (NS 3 ml) 3 ml PER PROTOCOL IV ; Start 10/26/18 at 06:00 Ondansetron HCl (Zofran Inj) 4 mg Q6H PRN IV NAUSEA AND/OR VOMITING Last administered on 10/29/18at 12:42; Admin Dose 4 MG; Start 10/26/18 at 06:00 Nitroglycerin (Nitroglycerin (Sl Tab) 0.4 Mg) 1 tab Q5M PRN SL CHEST PAIN; Start 10/26/18 at 06:00 Docusate Sodium (Colace) 100 mg Q12H PRN PO CONSTIPATION; Start 10/26/18 at 06:00 Bisacodyl (Dulcolax) 5 mg DAILY PRN PO CONSTIPATION; Start 10/26/18 at 06:00 Albuterol/ Ipratropium (Duoneb) 3 ml Q4H RESP THERAPY PRN HHN SHORTNESS OF BREATH Last administered on 10/27/18at 23:46; Admin Dose 3 ML; Start 10/26/18 at 06:00 Tramadol HCl (Ultram) 50 mg Q6H PRN PO MODERATE PAIN LEVEL 4-6 Last administered on 10/28/18at 09:31; Admin Dose 50 MG; Start 10/26/18 at 11:30 Hydroxyzine HCl (Atarax) 50 mg Q8H PRN PO ITCHING; Start 10/26/18 at 11:30 Heparin Sodium (Porcine) (Heparin (5000 Units/1ml)) 5,000 unit Q12 SC Last administered on 10/29/18at 08:45; Admin Dose 5,000 UNIT; Start 10/26/18 at 21:00 Acetaminophen (Tylenol Tab) 650 mg Q6H PRN PO PAIN LEVEL 1-3 OR FEVER Last administered on 10/29/18at 00:55; Admin Dose 650 MG; Start 10/26/18 at 12:30 Aspirin (Halfprin) 81 mg DAILY PO Last administered on 10/29/18at 08:16; Admin Dose 81 MG; Start 10/26/18 at 12:30 Carvedilol (Coreg) 25 mg Q8 PO Last administered on 10/28/18at 14:11; Admin Dose 25 MG; Start 10/26/18 at 14:00 Clonidine (Catapres) 0.1 mg BID PO Last administered on 10/29/18 11:01; Admin Dose 0.1 MG; Start 10/26/18 at 12:30 Hydroxychloroquine Sulfate (Plaquenil) 200 mg DAILY PO Last administered on 10/29/18at 09:39; Admin Dose 200 MG; Start 10/26/18 at 13:30 Lactobacillus Acidophilus/ Rhamnosus (Culturelle) 1 cap BID PO Last administered on 10/29/18 09:39; Admin Dose 1 CAP; Start 10/26/18 at 13:30 Losartan Potassium (Cozaar) 50 mg BID PO Last administered on 10/29/18 08:17; Admin Dose 50 MG; Start 10/26/18 at 12:30 Mycophenolate Mofetil (Cellcept) 1,000 mg BID PO Last administered on 10/29/18at 08:18; Admin Dose 1,000 MG; Start 10/26/18 at 13:30 Sucralfate (Carafate) 1 gm QID PO Last administered on 10/29/18at 12:40; Admin Dose 1 GM; Start 10/26/18 at 13:00 Epoetin Guanaco (Epogen (Esrd)) 6,000 units AFTER DIALYSIS SC Last administered on 10/28/18at 15:43; Admin Dose 6,000 UNITS; Start 10/26/18 at 17:00 Norepinephrine 250 ml @ 1.875 mls/ hr TITRATE IV ; Start 10/26/18 at 22:00 Nifedipine (Procardia) 20 mg Q6 PO Last administered on 10/29/18at 12:41; Admin Dose 20 MG; Start 10/27/18 at 00:00 Pantoprazole (Protonix Iv) 40 mg BID@06,18 IV Last administered on 10/29/18at 06:00; Admin Dose 40 MG; Start 10/27/18 at 06:00 Miscellaneous Information 1 ea NOTE XX ; Start 10/27/18 at 06:30 Glucose (Glutose) 15 gm Q15M PRN PO DECREASED GLUCOSE; Start 10/27/18 at 06:30 Glucose (Glutose) 22.5 gm Q15M PRN PO DECREASED GLUCOSE; Start 10/27/18 at 06:30 Dextrose (D50w Syringe) 25 ml Q15M PRN IV DECREASED GLUCOSE Last administered on 10/28/18at 00:14; Admin Dose 25 ML; Start 10/27/18 at 06:30 Dextrose (D50w Syringe) 50 ml Q15M PRN IV DECREASED GLUCOSE; Start 10/27/18 at 06:30 Glucagon (Glucagen) 1 mg Q15M PRN IM DECREASED GLUCOSE; Start 10/27/18 at 06:30 Glucose (Glutose) 15 gm Q15M PRN BUCCAL DECREASED GLUCOSE; Start 10/27/18 at 06:30 Vancomycin HCl (Vanco Iv Per Pharmacy) VANCOMYCIN PER PHARMACY PER PROTOCOL XX ; Start 10/27/18 at 08:00 Cefepime HCl 50 ml @ 100 mls/hr Q24H IVPB Last administered on 10/29/18at 08:18; Admin Dose 100 MLS/HR; Start 10/27/18 at 08:00 Heparin Sodium (Porcine) (Heparin (1000 Units/ml)) 2,000 unit WITH DIALYSIS HE Last administered on 10/28/18at 09:15; Admin Dose 2,000 UNIT; Start 10/27/18 at 18:00 Albumin Human 50 ml @ 100 mls/hr WITH DIALYSIS PRN IV SBP lower than 90 mm Hg; Start 10/27/18 at 18:00 Sodium Chloride (NS) -To prime the dialy... DIRECTED FOR HD PRN IV SBP lower than 90 mm Hg; Start 10/27/18 at 18:00 Heparin Sodium (Porcine) (Heparin (1000 Units/ml)) 4,500 unit AFTER DIALYSIS CATHETER Last administered on 10/28/18at 12:02; Admin Dose 4,500 UNIT; Start 10/28/18 at 09:30 Morphine Sulfate (morphine SULFATE (PF)) 1 mg Q2H PRN IV SEVERE PAIN LEVEL 7-10 Last administered on 10/29/18at 12:42; Admin Dose 1 MG; Start 10/28/18 at 18:30 Diphenhydramine HCl (Benadryl) 50 mg ONCE PRN PO Itching Last administered on 10/29/18at 00:55; Admin Dose 50 MG; Start 10/29/18 at 00:30 Vancomycin HCl 250 ml @ 125 mls/hr ONCE IVPB ; Start 10/29/18 at 14:00; Stop 10/30/18 at 20:00 Assessment/Plan Additional Assessment/Plan IMP: 1. Acute hypoxemic respiratory failure, likely secondary to volume overload. 2. 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 3. History of systemic lupus erythematosus. 4. History of pericardial effusion/pleural effusion 5. Anemia RECS: 1. Transfuse 1 unit PRBC with HD 2. HD/UF as per Renal 3. Follow H/H ERIC CARBONE MD Oct 29, 2018 13:59
[2018-10-29] MEDS ORDERED: VANCOMYCIN 1 GM 250 ML IVPB SCH (14:00)
--- NOTE | 2018-10-29 19:52 | PN ---
Date/Time of Note Date/Time of Note DATE: 10/29/18 TIME: 19:49 Assessment/Plan VTE Prophylaxis Risk score (from Nsg)>0 risk: 3 SCD applied (from Nsg): Yes Pharmacological prophylaxis: heparin Lines/Catheters IV Catheter Type (from Nrsg): Mid Line Urinary Cath still in place: Yes Reason Cath still needed: urinary retention Assessment/Plan Hospital Course 33 yo female with h/o lupus leading to ESRD presented with fluid overload leading to hypoxic respiratory failure ESRD: - HD schedule for Tuesday Anemia of CKD: - Transfusion of PRBCs today Lupus: - Continue immunosuppression Hypertension: - Continue current meds Dispo: Patient can likelly be discharged home tomorrow following HD session if she is off of O2 Result Diagram: 10/29/18 1643 10/29/18 0500 Results 24hrs Laboratory Tests Test 10/29/18 05:00 10/29/18 16:43 White Blood Count 7.3 8.2 Red Blood Count 1.95 L 2.84 #L Hemoglobin 6.3 *L 8.9 #L Hematocrit 20.1 L 27.9 #L Mean Corpuscular Volume 103.1 H 98.2 Mean Corpuscular Hemoglobin 32.3 31.3 Mean Corpuscular Hemoglobin Concent 31.3 L 31.9 L Red Cell Distribution Width 15.2 H 16.6 H Platelet Count 128 L 122 L Mean Platelet Volume 12.2 H 12.1 H Immature Granulocytes % 0.400 0.400 Neutrophils % 70.3 66.6 Lymphocytes % 17.9 19.1 Monocytes % 8.9 10.7 Eosinophils % 2.1 2.8 Basophils % 0.4 0.4 Nucleated Red Blood Cells % 0.0 0.2 H Immature Granulocytes # 0.030 0.030 Neutrophils # 5.1 5.5 Lymphocytes # 1.3 1.6 Monocytes # 0.7 0.9 Eosinophils # 0.2 0.2 Basophils # 0.0 0.0 Nucleated Red Blood Cells # 0.0 0.0 Prothrombin Time 16.3 H Prothrombin Time Ratio 1.3 INR International Normalized Ratio 1.29 Sodium Level 137 Potassium Level 3.9 Chloride Level 100 Carbon Dioxide Level 31 Anion Gap 6 # Blood Urea Nitrogen 19 # Creatinine 3.77 #H Est Glomerular Filtrat Rate mL/min 14 L Glucose Level 91 Calcium Level 8.5 Total Bilirubin 0.0 L Direct Bilirubin 0.00 Indirect Bilirubin 0.0 Aspartate Amino Transf (AST/SGOT) 644 H Alanine Aminotransferase (ALT/SGPT) 837 H Alkaline Phosphatase 97 Total Protein 6.3 Albumin 3.0 L Globulin 3.30 H Albumin/Globulin Ratio 0.90 Random Vancomycin Level 14.3 Hepatitis B Surface Antibody NEGATIVE Hepatitis B Core Total Antibody NEGATIVE Subjective 24 Hr Interval Summary Free Text/Dictation Tranfserred to floor doing well Breathing on 2 L NC Tranfsuing 1 unit PRBCs Continues to request more opaites Exam/Review of Systems Vital Signs Vitals Vital Signs Date Temp Pulse Resp B/P (MAP) Pulse Ox O2 O2 Flow FiO2 Time Delivery Rate 10/29/18 2.0 17:40 10/29/18 78 16:52 10/29/18 98.1 18 129/67 97 16:00 (87) 10/29/18 Nasal 08:35 Cannula 10/28/18 45 01:11 Intake and Output 10/28/18 10/28/18 10/29/18 1515:00 23:00 07:00 IntakeIntake Total 530 ml 0 ml OutputOutput Total 3410 ml 0 ml BalanceBalance -2880 ml 0 ml Medications Medications Current Medications IV Flush (NS 3 ml) 3 ml PER PROTOCOL IV ; Start 10/26/18 at 06:00 Ondansetron HCl (Zofran Inj) 4 mg Q6H PRN IV NAUSEA AND/OR VOMITING Last administered on 10/29/18at 12:42; Admin Dose 4 MG; Start 10/26/18 at 06:00 Nitroglycerin (Nitroglycerin (Sl Tab) 0.4 Mg) 1 tab Q5M PRN SL CHEST PAIN; Start 10/26/18 at 06:00 Docusate Sodium (Colace) 100 mg Q12H PRN PO CONSTIPATION; Start 10/26/18 at 06:00 Bisacodyl (Dulcolax) 5 mg DAILY PRN PO CONSTIPATION; Start 10/26/18 at 06:00 Albuterol/ Ipratropium (Duoneb) 3 ml Q4H RESP THERAPY PRN HHN SHORTNESS OF BREATH Last administered on 10/27/18at 23:46; Admin Dose 3 ML; Start 10/26/18 at 06:00 Tramadol HCl (Ultram) 50 mg Q6H PRN PO MODERATE PAIN LEVEL 4-6 Last administered on 10/28/18 09:31; Admin Dose 50 MG; Start 10/26/18 at 11:30 Hydroxyzine HCl (Atarax) 50 mg Q8H PRN PO ITCHING; Start 10/26/18 at 11:30 Heparin Sodium (Porcine) (Heparin (5000 Units/1ml)) 5,000 unit Q12 SC Last administered on 10/29/18 08:45; Admin Dose 5,000 UNIT; Start 10/26/18 at 21:00 Acetaminophen (Tylenol Tab) 650 mg Q6H PRN PO PAIN LEVEL 1-3 OR FEVER Last administered on 10/29/18 00:55; Admin Dose 650 MG; Start 10/26/18 at 12:30 Aspirin (Halfprin) 81 mg DAILY PO Last administered on 10/29/18 08:16; Admin Dose 81 MG; Start 10/26/18 at 12:30 Carvedilol (Coreg) 25 mg Q8 PO Last administered on 10/29/18 15:44; Admin Dose 25 MG; Start 10/26/18 at 14:00 Clonidine (Catapres) 0.1 mg BID PO Last administered on 10/29/18 11:01; Admin Dose 0.1 MG; Start 10/26/18 at 12:30 Hydroxychloroquine Sulfate (Plaquenil) 200 mg DAILY PO Last administered on 10/29/18 09:39; Admin Dose 200 MG; Start 10/26/18 at 13:30 Lactobacillus Acidophilus/ Rhamnosus (Culturelle) 1 cap BID PO Last administered on 10/29/18 09:39; Admin Dose 1 CAP; Start 10/26/18 at 13:30 Losartan Potassium (Cozaar) 50 mg BID PO Last administered on 10/29/18 08:17; Admin Dose 50 MG; Start 10/26/18 at 12:30 Mycophenolate Mofetil (Cellcept) 1,000 mg BID PO Last administered on 10/29/18 08:18; Admin Dose 1,000 MG; Start 10/26/18 at 13:30 Sucralfate (Carafate) 1 gm QID PO Last administered on 10/29/18 17:10; Admin Dose 1 GM; Start 10/26/18 at 13:00 Epoetin Guanaco (Epogen (Esrd)) 6,000 units AFTER DIALYSIS SC Last administered on 10/28/18at 15:43; Admin Dose 6,000 UNITS; Start 10/26/18 at 17:00 Norepinephrine 250 ml @ 1.875 mls/ hr TITRATE IV ; Start 10/26/18 at 22:00 Nifedipine (Procardia) 20 mg Q6 PO Last administered on 10/29/18at 17:11; Admin Dose 20 MG; Start 10/27/18 at 00:00 Pantoprazole (Protonix Iv) 40 mg BID@06,18 IV Last administered on 10/29/18at 17:11; Admin Dose 40 MG; Start 10/27/18 at 06:00 Miscellaneous Information 1 ea NOTE XX ; Start 10/27/18 at 06:30 Glucose (Glutose) 15 gm Q15M PRN PO DECREASED GLUCOSE; Start 10/27/18 at 06:30 Glucose (Glutose) 22.5 gm Q15M PRN PO DECREASED GLUCOSE; Start 10/27/18 at 06:30 Dextrose (D50w Syringe) 25 ml Q15M PRN IV DECREASED GLUCOSE Last administered on 10/28/18at 00:14; Admin Dose 25 ML; Start 10/27/18 at 06:30 Dextrose (D50w Syringe) 50 ml Q15M PRN IV DECREASED GLUCOSE; Start 10/27/18 at 06:30 Glucagon (Glucagen) 1 mg Q15M PRN IM DECREASED GLUCOSE; Start 10/27/18 at 06:30 Glucose (Glutose) 15 gm Q15M PRN BUCCAL DECREASED GLUCOSE; Start 10/27/18 at 06:30 Vancomycin HCl (Vanco Iv Per Pharmacy) VANCOMYCIN PER PHARMACY PER PROTOCOL XX ; Start 10/27/18 at 08:00 Cefepime HCl 50 ml @ 100 mls/hr Q24H IVPB Last administered on 10/29/18at 08:18; Admin Dose 100 MLS/HR; Start 10/27/18 at 08:00 Heparin Sodium (Porcine) (Heparin (1000 Units/ml)) 2,000 unit WITH DIALYSIS HE Last administered on 10/28/18at 09:15; Admin Dose 2,000 UNIT; Start 10/27/18 at 18:00 Albumin Human 50 ml @ 100 mls/hr WITH DIALYSIS PRN IV SBP lower than 90 mm Hg; Start 10/27/18 at 18:00 Sodium Chloride (NS) -To prime the dialy... DIRECTED FOR HD PRN IV SBP lower than 90 mm Hg; Start 10/27/18 at 18:00 Heparin Sodium (Porcine) (Heparin (1000 Units/ml)) 4,500 unit AFTER DIALYSIS CATHETER Last administered on 10/28/18at 12:02; Admin Dose 4,500 UNIT; Start 10/28/18 at 09:30 Morphine Sulfate (morphine SULFATE (PF)) 1 mg Q2H PRN IV SEVERE PAIN LEVEL 7-10 Last administered on 10/29/18at 15:44; Admin Dose 1 MG; Start 10/28/18 at 18:30 Diphenhydramine HCl (Benadryl) 50 mg ONCE PRN PO Itching Last administered on 10/29/18at 00:55; Admin Dose 50 MG; Start 10/29/18 at 00:30 EMELY ORELLANA MD Oct 29, 2018 19:52
--- NOTE | 2018-10-29 20:08 | NUR ---
EOSS;HEMODYNAMICS STABLE;MORPHINE GIVEN X2 FOR GENERALIZED PAIN;I UNIT PACKED RBC'S GIVEN ORDERED;PT TOLERATED WELL;PT HEART MONITOR NSR;HOURLY ROUNDING PERFORMED;CON'T POC
[2018-10-30] VITALS (23 sets, daily range): BP systolic 102–148; BP diastolic 52–78; PULSE 62–81; RESP 16–20
[2018-10-30] MEDS: NIFEdipine 10 MG CAP PO SCH ×3 (06:00→13:45)
[2018-10-30] MEDS: morphine SULFATE/PF (2 MG/2 ML) SYG IV PRN (06:31)
[2018-10-30] MEDS: PANTOPRAZOLE 40 MG INJ IV SCH (06:31)
[2018-10-30] MEDS: ACETAMINOPHEN 325 MG TAB PO PRN ×2 (07:32→14:46)
--- NOTE | 2018-10-30 07:35 | NUR ---
EOSS Patient stable in bed, morphine IV 1 mg given x2 throughout shift. Saturating well, on NC 2LPM. Maintained on full liquids. Pedraza discontinued today. Otherwise uneventful night. Plan for dialysis today and possible d/c afterwards. PT eval has been ordered as well. All of patient's needs attended to. Will continue to monitor and will endorse to day shift.
[2018-10-30] MEDS: LOSARTAN 50 MG TAB PO SCH (08:05)
[2018-10-30] MEDS: LACTOBACILLUS RHAMNOSUS CAP PO SCH (08:33)
[2018-10-30] MEDS: SUCRALFATE 1 GM TAB PO SCH ×2 (08:33→13:44)
[2018-10-30] MEDS: CEFEPIME 1GM/50 ML (PMX) 50 ML IVPB SCH (08:33)
[2018-10-30] MEDS: ASPIRIN (EC) 81 MG TAB PO SCH (08:33)
[2018-10-30] MEDS: MYCOPHENOLATE 250 MG CAP PO SCH (08:34)
[2018-10-30] MEDS: ONDANSETRON 4 MG INJ IV PRN ×2 (08:54→13:44)
[2018-10-30] MEDS: HEPARIN 5,000 UNIT/1 ML VIAL SC SCH (08:57)
--- NOTE | 2018-10-30 09:25 | PN ---
Date/Time of Note Date/Time of Note DATE: 10/30/18 TIME: 09:23 Assessment/Plan VTE Prophylaxis Risk score (from Ns)>0 risk: 3 SCD applied (from Nsg): Yes Pharmacological prophylaxis: other (scds) Lines/Catheters IV C[facility] Type (from [facility] Mid [facility] Urinary Cath still in place: Yes Reason Cath still needed: other (indicate) (monitor output) Assessment/Plan Hospital Course Summary Assessment and Plan: Assessment: Acute liver injury - likely secondary to hypoperfusion- LFTS down today Chronic pancreatitis Acute Resp failure- pt was intubated 10/26 -S/p extubation 10/27/18 Moderate L sided pleural effusion Chronic anemia Thrombocytopenia End-stage renal disease on hemodialysis. -Commenced on HD, Nephro following Lupus nephritis. Hypertension. Hx of Pericardial effusion, small to moderate Anxiety Plan: Continue current regimen D/c planning per hospitalist Patient seen in collaboration with Dr. Potter/Cintia Subjective: Course reviewed with nursing staff Patient interviewed and examined All labs, imaging and other results reviewed Currently receiving HD, possible d/c today Pt states she feels very well. NO overt signs of GI bleed. HGB with appropriate response to blood transfusion PHYSICAL EXAMINATION: GENERAL: Chronically ill appearing SKIN: Facial erythremia improved from last admission CARDIOVASCULAR: Heart: Regular rate and rhythm RESPIRATORY: Diminished GASTROINTESTINAL AND LIVER: Abdomen: Soft, non tenderness, non-distended, no hernias, no masses, normoactive bowel sounds. Rectal: Deferred. Result Diagram: 10/29/18 1643 10/29/18 0500 Results 24hrs Laboratory Tests Test 10/29/18 16:43 White Blood Count 8.2 Red Blood Count 2.84 #L Hemoglobin 8.9 #L Hematocrit 27.9 #L Mean Corpuscular Volume 98.2 Mean Corpuscular Hemoglobin 31.3 Mean Corpuscular Hemoglobin Concent 31.9 L Red Cell Distribution Width 16.6 H Platelet Count 122 L Mean Platelet Volume 12.1 H Immature Granulocytes % 0.400 Neutrophils % 66.6 Lymphocytes % 19.1 Monocytes % 10.7 Eosinophils % 2.8 Basophils % 0.4 Nucleated Red Blood Cells % 0.2 H Immature Granulocytes # 0.030 Neutrophils # 5.5 Lymphocytes # 1.6 Monocytes # 0.9 Eosinophils # 0.2 Basophils # 0.0 Nucleated Red Blood Cells # 0.0 Exam/Review of Systems Vital Signs Vitals Vital Signs Date Temp Pulse Resp B/P (MAP) Pulse Ox O2 O2 Flow FiO2 Time Delivery Rate 10/30/18 63 08:00 10/30/18 Nasal 2.0 07:52 Cannula 10/30/18 98.4 18 106/63 07:22 (77) 10/30/18 100 04:33 10/28/18 45 01:11 Intake and Output 10/29/18 10/29/18 10/30/18 1515:00 23:00 07:00 IntakeIntake Total 100 ml 875 ml OutputOutput Total 0 ml BalanceBalance 100 ml 875 ml Medications Medications Current Medications IV Flush (NS 3 ml) 3 ml PER PROTOCOL IV ; Start 10/26/18 at 06:00 Ondansetron HCl (Zofran Inj) 4 mg Q6H PRN IV NAUSEA AND/OR VOMITING Last administered on 10/30/18at 08:54; Admin Dose 4 MG; Start 10/26/18 at 06:00 Nitroglycerin (Nitroglycerin (Sl Tab) 0.4 Mg) 1 tab Q5M PRN SL CHEST PAIN; Start 10/26/18 at 06:00 Docusate Sodium (Colace) 100 mg Q12H PRN PO CONSTIPATION; Start 10/26/18 at 06:00 Bisacodyl (Dulcolax) 5 mg DAILY PRN PO CONSTIPATION; Start 10/26/18 at 06:00 Albuterol/ Ipratropium (Duoneb) 3 ml Q4H RESP THERAPY PRN HHN SHORTNESS OF BREATH Last administered on 10/27/18at 23:46; Admin Dose 3 ML; Start 10/26/18 at 06:00 Tramadol HCl (Ultram) 50 mg Q6H PRN PO MODERATE PAIN LEVEL 4-6 Last administered on 10/28/18at 09:31; Admin Dose 50 MG; Start 10/26/18 at 11:30 Hydroxyzine HCl (Atarax) 50 mg Q8H PRN PO ITCHING Last administered on 10/30/18at 08:46; Admin Dose 50 MG; Start 10/26/18 at 11:30 Heparin Sodium (Porcine) (Heparin (5000 Units/1ml)) 5,000 unit Q12 SC Last administered on 10/30/18at 08:57; Admin Dose 5,000 UNIT; Start 10/26/18 at 2 1:00 Acetaminophen (Tylenol Tab) 650 mg Q6H PRN PO PAIN LEVEL 1-3 OR FEVER Last administered on 10/30/18 07:32; Admin Dose 650 MG; Start 10/26/18 at 12:30 Aspirin (Halfprin) 81 mg DAILY PO Last administered on 10/30/18 08:33; Admin Dose 81 MG; Start 10/26/18 at 12:30 Carvedilol (Coreg) 25 mg Q8 PO Last administered on 10/29/18 15:44; Admin Dose 25 MG; Start 10/26/18 at 14:00 Clonidine (Catapres) 0.1 mg BID PO Last administered on 10/29/18 11:01; Admin Dose 0.1 MG; Start 10/26/18 at 12:30 Hydroxychloroquine Sulfate (Plaquenil) 200 mg DAILY PO Last administered on 10/29/18 09:39; Admin Dose 200 MG; Start 10/26/18 at 13:30 Lactobacillus Acidophilus/ Rhamnosus (Culturelle) 1 cap BID PO Last administered on 10/30/18 08:33; Admin Dose 1 CAP; Start 10/26/18 at 13:30 Losartan Potassium (Cozaar) 50 mg BID PO Last administered on 10/29/18 08:17; Admin Dose 50 MG; Start 10/26/18 at 12:30 Mycophenolate Mofetil (Cellcept) 1,000 mg BID PO Last administered on 10/30/18 08:34; Admin Dose 1,000 MG; Start 10/26/18 at 13:30 Sucralfate (Carafate) 1 gm QID PO Last administered on 10/30/18 08:33; Admin Dose 1 GM; Start 10/26/18 at 13:00 Epoetin Guanaco (Epogen (Esrd)) 6,000 units AFTER DIALYSIS SC Last administered on 10/28/18 15:43; Admin Dose 6,000 UNITS; Start 10/26/18 at 17:00 Norepinephrine 250 ml @ 1.875 mls/ hr TITRATE IV ; Start 10/26/18 at 22:00 Nifedipine (Procardia) 20 mg Q6 PO Last administered on 10/29/18 17:11; Admin Dose 20 MG; Start 10/27/18 at 00:00 Pantoprazole (Protonix Iv) 40 mg BID@06,18 IV Last administered on 10/30/18at 06:31; Admin Dose 40 MG; Start 10/27/18 at 06:00 Miscellaneous Information 1 ea NOTE XX ; Start 10/27/18 at 06:30 Glucose (Glutose) 15 gm Q15M PRN PO DECREASED GLUCOSE; Start 10/27/18 at 06:30 Glucose (Glutose) 22.5 gm Q15M PRN PO DECREASED GLUCOSE; Start 10/27/18 at 06:30 Dextrose (D50w Syringe) 25 ml Q15M PRN IV DECREASED GLUCOSE Last administered on 10/28/18at 00:14; Admin Dose 25 ML; Start 10/27/18 at 06:30 Dextrose (D50w Syringe) 50 ml Q15M PRN IV DECREASED GLUCOSE; Start 10/27/18 at 06:30 Glucagon (Glucagen) 1 mg Q15M PRN IM DECREASED GLUCOSE; Start 10/27/18 at 06:30 Glucose (Glutose) 15 gm Q15M PRN BUCCAL DECREASED GLUCOSE; Start 10/27/18 at 06:30 Vancomycin HCl (Vanco Iv Per Pharmacy) VANCOMYCIN PER PHARMACY PER PROTOCOL XX ; Start 10/27/18 at 08:00 Cefepime HCl 50 ml @ 100 mls/hr Q24H IVPB Last administered on 10/30/18at 08:33; Admin Dose 100 MLS/HR; Start 10/27/18 at 08:00 Heparin Sodium (Porcine) (Heparin (1000 Units/ml)) 2,000 unit WITH DIALYSIS HE Last administered on 10/28/18at 09:15; Admin Dose 2,000 UNIT; Start 10/27/18 at 18:00 Albumin Human 50 ml @ 100 mls/hr WITH DIALYSIS PRN IV SBP lower than 90 mm Hg; Start 10/27/18 at 18:00 Sodium Chloride (NS) -To prime the dialy... DIRECTED FOR HD PRN IV SBP lower than 90 mm Hg; Start 10/27/18 at 18:00 Heparin Sodium (Porcine) (Heparin (1000 Units/ml)) 4,500 unit AFTER DIALYSIS CATHETER Last administered on 10/28/18at 12:02; Admin Dose 4,500 UNIT; Start 10/28/18 at 09:30 Diphenhydramine HCl (Benadryl) 50 mg ONCE PRN PO Itching Last administered on 10/29/18at 00:55; Admin Dose 50 MG; Start 10/29/18 at 00:30 Morphine Sulfate (morphine SULFATE (PF)) 1 mg Q8H PRN IV SEVERE PAIN LEVEL 7-10 Last administered on 10/30/18 06:31; Admin Dose 1 MG; Start 10/29/18 at 20:00 DEVEN DOE Oct 30, 2018 09:25
[2018-10-30] MEDS ORDERED: ALBUMIN HUMAN 25% 100 ML IV PRN (09:30)
--- NOTE | 2018-10-30 11:46 | NUR ---
PT NOTE Received MD orders for PT evaluation. Attempted to evaluate pt in AM, pt about on HD. Will follow up in pm if time permits. Communicated with RN.
--- NOTE | 2018-10-30 11:50 | CONS ---
Date/Time of Note Date/Time of Note DATE: 10/30/18 TIME: 11:49 Consult Date/Type/Reason Admit Date/Time Oct 27, 2018 at 16:04 Initial Consult Date 10/28/18 Type of Consultation: Pulm/CCM Subjective Nasal cannula O2 this morning. Having hemodialysis. Objective Vital Signs Date Temp Pulse Resp B/P (MAP) Pulse Ox O2 O2 Flow FiO2 Time Delivery Rate 10/30/18 97.9 67 16 134/69 100 Nasal 11:20 (90) Cannula 10/30/18 1.0 09:50 10/28/18 45 01:11 Intake and Output 10/29/18 10/29/18 10/30/18 1515:00 23:00 07:00 IntakeIntake Total 100 ml 875 ml OutputOutput Total 0 ml BalanceBalance 100 ml 875 ml Exam GENERAL: VITAL SIGNS: per chart NECK: Supple. No JVD or lymphadenopathy. CARDIAC EXAM: S1, S2. No added sounds or murmurs. CHEST: Diminished air entry bilaterally with few rales ABDOMEN: Soft, nontender. No guarding or rebound. EXTREMITIES: No cyanosis, clubbing or edema. NEUROLOGIC: Generalized weakness. No focal deficits. Chronically ill- appearing lady appears comfortable at rest no acute distress Results/Medications Result Diagram: 10/29/18 1643 10/29/18 0500 Results 24 hrs Laboratory Tests Test 10/29/18 16:43 White Blood Count 8.2 Red Blood Count 2.84 #L Hemoglobin 8.9 #L Hematocrit 27.9 #L Mean Corpuscular Volume 98.2 Mean Corpuscular Hemoglobin 31.3 Mean Corpuscular Hemoglobin Concent 31.9 L Red Cell Distribution Width 16.6 H Platelet Count 122 L Mean Platelet Volume 12.1 H Immature Granulocytes % 0.400 Neutrophils % 66.6 Lymphocytes % 19.1 Monocytes % 10.7 Eosinophils % 2.8 Basophils % 0.4 Nucleated Red Blood Cells % 0.2 H Immature Granulocytes # 0.030 Neutrophils # 5.5 Lymphocytes # 1.6 Monocytes # 0.9 Eosinophils # 0.2 Basophils # 0.0 Nucleated Red Blood Cells # 0.0 Medications Current Medications IV Flush (NS 3 ml) 3 ml PER PROTOCOL IV ; Start 10/26/18 at 06:00 Ondansetron HCl (Zofran Inj) 4 mg Q6H PRN IV NAUSEA AND/OR VOMITING Last administered on 10/30/18 08:54; Admin Dose 4 MG; Start 10/26/18 at 06:00 Nitroglycerin (Nitroglycerin (Sl Tab) 0.4 Mg) 1 tab Q5M PRN SL CHEST PAIN; Start 10/26/18 at 06:00 Docusate Sodium (Colace) 100 mg Q12H PRN PO CONSTIPATION; Start 10/26/18 at 06:00 Bisacodyl (Dulcolax) 5 mg DAILY PRN PO CONSTIPATION; Start 10/26/18 at 06:00 Albuterol/ Ipratropium (Duoneb) 3 ml Q4H RESP THERAPY PRN HHN SHORTNESS OF BREATH Last administered on 10/27/18 23:46; Admin Dose 3 ML; Start 10/26/18 at 06:00 Tramadol HCl (Ultram) 50 mg Q6H PRN PO MODERATE PAIN LEVEL 4-6 Last administered on 10/28/18 09:31; Admin Dose 50 MG; Start 10/26/18 at 11:30 Hydroxyzine HCl (Atarax) 50 mg Q8H PRN PO ITCHING Last administered on 10/30/18 08:46; Admin Dose 50 MG; Start 10/26/18 at 11:30 Heparin Sodium (Porcine) (Heparin (5000 Units/1ml)) 5,000 unit Q12 SC Last administered on 10/30/18 08:57; Admin Dose 5,000 UNIT; Start 10/26/18 at 21:00 Acetaminophen (Tylenol Tab) 650 mg Q6H PRN PO PAIN LEVEL 1-3 OR FEVER Last administered on 10/30/18 07:32; Admin Dose 650 MG; Start 10/26/18 at 12:30 Aspirin (Halfprin) 81 mg DAILY PO Last administered on 10/30/18 08:33; Admin Dose 81 MG; Start 10/26/18 at 12:30 Carvedilol (Coreg) 25 mg Q8 PO Last administered on 10/29/18 15:44; Admin Dose 25 MG; Start 10/26/18 at 14:00 Clonidine (Catapres) 0.1 mg BID PO Last administered on 10/29/18 11:01; Admin Dose 0.1 MG; Start 10/26/18 at 12:30 Hydroxychloroquine Sulfate (Plaquenil) 200 mg DAILY PO Last administered on 10/29/18at 09:39; Admin Dose 200 MG; Start 10/26/18 at 13:30 Lactobacillus Acidophilus/ Rhamnosus (Culturelle) 1 cap BID PO Last administered on 10/30/18at 08:33; Admin Dose 1 CAP; Start 10/26/18 at 13:30 Losartan Potassium (Cozaar) 50 mg BID PO Last administered on 10/29/18at 08:17; Admin Dose 50 MG; Start 10/26/18 at 12:30 Mycophenolate Mofetil (Cellcept) 1,000 mg BID PO Last administered on 10/30/18at 08:34; Admin Dose 1,000 MG; Start 10/26/18 at 13:30 Sucralfate (Carafate) 1 gm QID PO Last administered on 10/30/18at 08:33; Admin Dose 1 GM; Start 10/26/18 at 13:00 Epoetin Guanaco (Epogen (Esrd)) 6,000 units AFTER DIALYSIS SC Last administered on 10/28/18at 15:43; Admin Dose 6,000 UNITS; Start 10/26/18 at 17:00 Norepinephrine 250 ml @ 1.875 mls/ hr TITRATE IV ; Start 10/26/18 at 22:00 Nifedipine (Procardia) 20 mg Q6 PO Last administered on 10/29/18at 17:11; Admin Dose 20 MG; Start 10/27/18 at 00:00 Pantoprazole (Protonix Iv) 40 mg BID@06,18 IV Last administered on 10/30/18at 06:31; Admin Dose 40 MG; Start 10/27/18 at 06:00 Miscellaneous Information 1 ea NOTE XX ; Start 10/27/18 at 06:30 Glucose (Glutose) 15 gm Q15M PRN PO DECREASED GLUCOSE; Start 10/27/18 at 06:30 Glucose (Glutose) 22.5 gm Q15M PRN PO DECREASED GLUCOSE; Start 10/27/18 at 06:30 Dextrose (D50w Syringe) 25 ml Q15M PRN IV DECREASED GLUCOSE Last administered on 10/28/18at 00:14; Admin Dose 25 ML; Start 10/27/18 at 06:30 Dextrose (D50w Syringe) 50 ml Q15M PRN IV DECREASED GLUCOSE; Start 10/27/18 at 06:30 Glucagon (Glucagen) 1 mg Q15M PRN IM DECREASED GLUCOSE; Start 10/27/18 at 06:30 Glucose (Glutose) 15 gm Q15M PRN BUCCAL DECREASED GLUCOSE; Start 10/27/18 at 06:30 Vancomycin HCl (Vanco Iv Per Pharmacy) VANCOMYCIN PER PHARMACY PER PROTOCOL XX ; Start 10/27/18 at 08:00 Cefepime HCl 50 ml @ 100 mls/hr Q24H IVPB Last administered on 10/30/18at 08:33; Admin Dose 100 MLS/HR; Start 10/27/18 at 08:00 Heparin Sodium (Porcine) (Heparin (1000 Units/ml)) 2,000 unit WITH DIALYSIS HE Last administered on 10/28/18at 09:15; Admin Dose 2,000 UNIT; Start 10/27/18 at 18:00 Albumin Human 50 ml @ 100 mls/hr WITH DIALYSIS PRN IV SBP lower than 90 mm Hg; Start 10/27/18 at 18:00 Sodium Chloride (NS) -To prime the dialy... DIRECTED FOR HD PRN IV SBP lower than 90 mm Hg; Start 10/27/18 at 18:00 Heparin Sodium (Porcine) (Heparin (1000 Units/ml)) 4,500 unit AFTER DIALYSIS CATHETER Last administered on 10/28/18at 12:02; Admin Dose 4,500 UNIT; Start 10/28/18 at 09:30 Diphenhydramine HCl (Benadryl) 50 mg ONCE PRN PO Itching Last administered on 10/29/18at 00:55; Admin Dose 50 MG; Start 10/29/18 at 00:30 Morphine Sulfate (morphine SULFATE (PF)) 1 mg Q8H PRN IV SEVERE PAIN LEVEL 7-10 Last administered on 10/30/18at 06:31; Admin Dose 1 MG; Start 10/29/18 at 20:00 Albumin Human 100 ml @ 100 mls/hr WITH DIALYSIS PRN IV BP SUPPORT; Start 10/30/18 at 09:30 Assessment/Plan Chief Complaint/Hosp Course IMP: 1. Acute hypoxemic respiratory failure, likely secondary to volume overload. 2. 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 3. History of systemic lupus erythematosus. 4. History of pericardial effusion/pleural effusion 5. Anemia RECS: 1. Decrease O2 as tolerated 2. HD/UF as per Renal 3. Follow H/H 4. Encourage out of bed [facility]A [facility] Oct 30, 2018 11:50
[2018-10-30] MEDS: HEPARIN 1000 UNITS/ML 10 ML INJ CATHETER SCH (12:29)
[2018-10-30] MEDS: HYDROXYCHLOROQUINE 200 MG TAB PO SCH (13:44)
--- NOTE | 2018-10-30 13:55 | DS ---
Date/Time of Note Date/Time of Note DATE: 10/30/18 TIME: 13:31 Discharge Summary Admission/Discharge Info Admit Date/Time Oct 27, 2018 at 16:04 Discharge Date/Time Discharge Diagnosis This is a 33-year-old female who presents with chest / epigastric pain and n ausea, managed as follows: 1. Chest pain: ACS ruled out , resolved , likely 2/2 Pleural effusion and possible underlying PNA 2. Acute Resp failure 2/2 Pulm edema, pleural effusion and PNA: required transient ventilator support, now resolved 3. End-stage renal disease on hemodialysis. 4. History of lupus with lupus nephritis. 5. Anemia of CKD: Transfused 1 unit on this admission 6. Hypertension s/p Hypertensive urgency: good control 7. Chronic anxiety: ?Benzodiazepine/benadryl dependence 8. Chronic thrombocytopenia: 2/2 uremia 9. Recent vancomycin-resistant enterococci urinary tract infection. 10. Known benign brain cavernoma. 11. Hx of Pericardial effusion, small to moderate : stable on repeat echo 12. Hx of Chronic pancreatitis. 13. Acute liver injury 2/2 hypoperfusion: improving . Consults Nephrology: Shadi Pulmonary : Irwin / Annamarie GI: suchov . Procedures 1. Endotracheal intubation requiring transient Ventilator support 2. US guided left thoracentesis. CLINICAL INDICATION: Shortness of breath. Left pleural effusion. FINDINGS: Initial ultrasound demonstrates fluid in the left pleural space. Approximately 0.600 liters of serous fluid was aspirated and discarded. Specimens: None. Blood loss: 1 ml. Complications: None. [employer]: None. Anesthesia: Local. Graft/Implant: None. IMPRESSION: 1. Satisfactory ultrasound-guided left thoracentesis. 3. Emergent and subsequent routine HD 4. Serial CXRs 5. US abdomen FINDINGS: The liver is normal in size and echogenicity without focal mass or intrahepatic biliary dilatation. The gallbladder is normal. There is no pericholecystic fluid or gallbladder wall thickening or gallstones. No intra or extrahepatic biliary dilatation is seen. The common bile duct measures 4.9 mm in maximal dimension. The visualized portions of the pancreas are unremarkable with obscuration of the tail of the pancreas. No intraperitoneal free fluid is identified. Right pleural effusion is partially imaged. The right kidney measures 8.8cm in length. There is increased echogenicity within the right kidney. There is no perinephric fluid collection. No hydronephrosis, mass, or calculus is seen. Increased right renal cortical echogenicity, suggesting chronic medical renal disease. Partially imaged right pleural effusion. 6. 2d ECHO Conclusions The left ventricular ejection fraction is visually estimated at 50 - 55 %. Small to moderate pericardial effusion. Left pleural effusion seen. . Hospital Course Rhianna is a 33-year-old female well-known to our service on end-stage renal disease secondary to lupus nephritis who had presented October 25, 2018 to the emergency room with chest pain. She was admitted for workup and management. Unfortunately her hospital course was complicated by respiratory failure requiring ventilator support. This was thought to be secondary to flash pulmonary edema. She was also found to have a left-sided pleural effusion that was drained via thoracentesis. After a few days on the ventilator, she was successfully extubated. She was also treated for underlying healthcare associated pneumonia. At this time she is doing well. The plan is to complete ly wean off of oxygen today, and if she is stable and able to tolerate diet, she will be discharged home in stable condition. Comorbidities were also aggressively managed as per Med records. . Home Meds Active Scripts Sucralfate* (Carafate*) 1 Gm Tab, 1 GM PO QID for 10 Days, #30 TAB Prov:GIANCARLO NOGUERA MD 10/19/18 Lactobacillus Rhamnosus GG (Culturelle) 1 Each Capsule, 1 CAP PO BID for 10 Days, #20 CAP Prov:GIANCARLO NOGUERA MD 10/19/18 Furosemide (Lasix) 20 Mg Tab, 20 MG PO BID DIURETICS for 10 Days, #20 TAB Prov:GIANCARLO NOGUERA MD 10/19/18 [NIFEdipine (XL)] 60 MG TABSR No Conflict Check, 120 MG PO DAILY for 10 Days, #10 2 Refills Prov:GIANCARLO NOGUERA MD 10/19/18 Clonidine Hcl* (Catapres*) 0.1 Mg Tablet, 0.1 MG PO BID for 10 Days, #20 TAB 1 Refill Prov:GIANCARLO NOGUERA MD 10/19/18 Carvedilol* (Carvedilol*) 25 Mg Tablet, 25 MG PO Q8 for 10 Days, #30 TAB 1 Refill Prov:GIANCARLO NOGUERA MD 10/19/18 Ranitidine Hcl* (Zantac*) 150 Mg Tablet, 150 MG PO ONCE PRN for EPIGASTRIC PAIN, #30 TAB Prov:DEMARCO QURESHI DO 10/13/18 Aspirin* (Aspirin* (EC)) 81 Mg Tablet., 81 MG PO DAILY for 30 Days, #30 otc Prov:GIANCARLO NOGUERA MD 09/24/18 Acetaminophen* (Tylenol*) 325 Mg Tablet, 650 MG PO Q6H PRN for PAIN LEVEL 1-3 OR FEVER for 1 Day, TAB Prov:GIANCARLO NOGUERA MD 09/24/18 Pantoprazole* (Pantoprazole*) 40 Mg Tablet., 40 MG PO BID@, #60 TAB Prov:VIRGINIA MUSA 08/09/18 Losartan Potassium* (Cozaar*) 50 Mg Tablet, 50 MG PO BID, #60 TAB Prov:VIRGINIA MUSA 08/09/18 Reported Medications Carvedilol* (Carvedilol*) 6.25 Mg Tablet, 6.25 MG PO BID, #60 TAB 10/26/18 Tramadol Hcl* (Ultram*) 50 Mg Tablet, 100 MG PO Q8, TAB 10/26/18 Hydroxyzine Hcl* (Hydroxyzine Hcl*) 10 Mg Tablet, 10 MG PO BID PRN for ITCHING, #30 TAB 10/26/18 Lorazepam* (Lorazepam*) 1 Mg Tablet, 1 MG PO HS PRN for ANXIETY, #30 TAB 09/15/18 Metoclopramide* (Reglan*) 10 Mg Tablet, 10 MG PO Q6H PRN for NAUSEA AND OR VOMITING, TAB 09/15/18 Mycophenolate Mofetil* (Mycophenolate Mofetil*) 500 Mg Tablet, 1000 MG PO BID, TAB TAKE 2 TABLET BY MOUTH EVERY MORNING AND EVENING 06/30/18 Hydroxychloroquine Sulfate* (Hydroxychloroquine Sulfate*) 200 Mg Tablet, 200 MG PO DAILY, TAB TAKE 1 TAB BY MOUTH EVERY TUESDAY-Tuesday06/30/18 Discontinued Scripts Vxlyvhztcih-K-Mlxzyzlzur Hb* (Guaifenesin* DM Syrup) 120 Ml Syrup, 10 ML PO Q4H PRN for COUGH for 1 Day Prov:GIANCARLO NOGUERA MD 10/19/18 Levofloxacin* (Levofloxacin*) 250 Mg Tablet, 250 MG PO Q48H for 3 Days, #3 TAB 1 tablet every other day. Prov:GIANCARLO NOGUERA MD 10/19/18 Fluconazole* (Diflucan*) 200 Mg Tablet, 200 MG PO DAILY for 10 Days, TAB Prov:GIANCARLO NOGUERA MD 09/24/18 Oxycodone HCl/Acetaminophen (Oxycodone-Acetaminophen 5-325) 1 Each Tablet, 2 TAB PO Q4H PRN for PAIN, #30 TAB Prov:VIRGINIA MUSA 08/09/18 Follow-up Plan 1. Followup with your primary doctor within the next 1 week. If you don't have one please let someone know, we can give you resources that may help you pick one. You may call Dr Lyndon Dean's office. he's accepting new patients Name, Degree: Lyndon Dean MD Specialty: Internal Medicine Comments: Office Address: [address] [place] [address] Office Office You may also call your insurance company to assign one to you. 2. Please also followup with your routine hemodialysis 3. Review your medication list with your nurse before leaving and if you need new prescriptions please let your nurse know. 4. I may have made changes to your home medications or given you new prescriptions, please let your primary doctor know as well. 5. Stay compliant with your medications and report any side effects to your PCP or pharmacist. 6. Return to the ER if you have any concerns and cannot reach your doctors or call your insurance company, they usually have a nurse that can help you. Primary Care Provider Not On Staff Doctor Time spent on discharge: > 30 minutes Pending Labs Laboratory Tests Test 10/29/18 16:43 White Blood Count 8.2 10^3/ul (4.8-10.8) Red Blood Count 2.84 10^6/ul (4.20-5.40) Hemoglobin 8.9 g/dl (12.0-16.0) Hematocrit 27.9 % (37.0-47.0) Mean Corpuscular Volume 98.2 fl (82.0-101.0) Mean Corpuscular Hemoglobin 31.3 pg (29.0-33.0) Mean Corpuscular Hemoglobin Concent 31.9 g/dl (32.0-37.0) Red Cell Distribution Width 16.6 % (11.5-14.5) Platelet Count 122 10^3/UL (140-415) Mean Platelet Volume 12.1 fl (7.4-10.4) Immature Granulocytes % 0.400 % (0.001-0.429) Neutrophils % 66.6 % (39.0-77.0) Lymphocytes % 19.1 % (15.0-51.0) Monocytes % 10.7 % (0.0-11.0) Eosinophils % 2.8 % (0.0-7.0) Basophils % 0.4 % (0.0-2.0) Nucleated Red Blood Cells % 0.2 /100WBC (0.0-0.0) Immature Granulocytes # 0.030 10^3/ul (0.0-0.031) Neutrophils # 5.5 10^3/ul (1.6-7.5) Lymphocytes # 1.6 10^3/ul (0.8-2.9) Monocytes # 0.9 10^3/ul (0.3-0.9) Eosinophils # 0.2 10^3/ul (0.0-0.5) Basophils # 0.0 10^3/ul (0.0-0.1) Nucleated Red Blood Cells # 0.0 10^3/ul (0.0-0.0) FARHAD LEZAMA. Oct 30, 2018 13:41
--- NOTE | 2018-10-30 14:18 | CONS ---
Date/Time of Note Date/Time of Note DATE: 10/30/18 TIME: 14:18 Assessment/Plan Assessment/Plan Assessment/Plan 1. Acute fluid overload 2. ESRD on HD Tue, , tuesday schedule 3. H/o Lupus 4. H.o HTN 5. h.o HL 6. H/o Moderat R Pleural effusion s/p US guided thoracentesis 500 cc drained on 09/19/18 Plan: s/p HD today 3 L removed, ok to d/c to home today losartan 50mg BID, Clonidine 0.1 mg PO BID and Coreg 25 mg pO Q 8 hr, Bp stable today pt follows at [place] [facility] for scheduled HD on next HD will be on at HD unit will follow up Result Diagram: 10/29/18 1643 10/29/18 0500 Results 24hrs Laboratory Tests Test 10/29/18 16:43 White Blood Count 8.2 Red Blood Count 2.84 #L Hemoglobin 8.9 #L Hematocrit 27.9 #L Mean Corpuscular Volume 98.2 Mean Corpuscular Hemoglobin 31.3 Mean Corpuscular Hemoglobin Concent 31.9 L Red Cell Distribution Width 16.6 H Platelet Count 122 L Mean Platelet Volume 12.1 H Immature Granulocytes % 0.400 Neutrophils % 66.6 Lymphocytes % 19.1 Monocytes % 10.7 Eosinophils % 2.8 Basophils % 0.4 Nucleated Red Blood Cells % 0.2 H Immature Granulocytes # 0.030 Neutrophils # 5.5 Lymphocytes # 1.6 Monocytes # 0.9 Eosinophils # 0.2 Basophils # 0.0 Nucleated Red Blood Cells # 0.0 Consultation Date/Type/Reason Admit Date/Time Oct 27, 2018 at 16:04 Initial Consult Date Type of Consult NEPHROLOGY 24 HR Interval Summary Free Text/Dictation s/p HD today 3 L removed, BP stable, afebrile, c/o throat pain Exam/Review of Systems Vital Signs Vitals Vital Signs Date Temp Pulse Resp B/P (MAP) Pulse Ox O2 O2 Flow FiO2 Time Delivery Rate 10/30/18 66 18 148/78 98 Room Air 13:15 (101) 10/30/18 97.9 11:20 10/30/18 1.0 09:50 10/28/18 45 01:11 Intake and Output 10/29/18 10/29/18 10/30/18 1515:00 23:00 07:00 IntakeIntake Total 100 ml 875 ml OutputOutput Total 0 ml BalanceBalance 100 ml 875 ml Exam Constitutional: alert, awake, no acute distress Respiratory: crackles/rales, diminished breath sounds Cardiovascular: regular rate and rhythm, nl pulses Gastrointestinal: soft Musculoskeletal: nl extremities to inspection, muscle weakness, swelling Neurological: CLOTH SPONGER II-XII intact, other (Non focal ) Medications Medications Current Medications IV Flush (NS 3 ml) 3 ml PER PROTOCOL IV ; Start 10/26/18 at 06:00 Ondansetron HCl (Zofran Inj) 4 mg Q6H PRN IV NAUSEA AND/OR VOMITING Last administered on 10/30/18at 13:44; Admin Dose 4 MG; Start 10/26/18 at 06:00 Nitroglycerin (Nitroglycerin (Sl Tab) 0.4 Mg) 1 tab Q5M PRN SL CHEST PAIN; Start 10/26/18 at 06:00 Docusate Sodium (Colace) 100 mg Q12H PRN PO CONSTIPATION; Start 10/26/18 at 06:00 Bisacodyl (Dulcolax) 5 mg DAILY PRN PO CONSTIPATION; Start 10/26/18 at 06:00 Albuterol/ Ipratropium (Duoneb) 3 ml Q4H RESP THERAPY PRN HHN SHORTNESS OF BREATH Last administered on 10/27/18 23:46; Admin Dose 3 ML; Start 10/26/18 at 06:00 Tramadol HCl (Ultram) 50 mg Q6H PRN PO MODERATE PAIN LEVEL 4-6 Last administered on 10/28/18 09:31; Admin Dose 50 MG; Start 10/26/18 at 11:30 Hydroxyzine HCl (Atarax) 50 mg Q8H PRN PO ITCHING Last administered on 10/30/18 08:46; Admin Dose 50 MG; Start 10/26/18 at 11:30 Heparin Sodium (Porcine) (Heparin (5000 Units/1ml)) 5,000 unit Q12 SC Last administered on 10/30/18 08:57; Admin Dose 5,000 UNIT; Start 10/26/18 at 21:00 Acetaminophen (Tylenol Tab) 650 mg Q6H PRN PO PAIN LEVEL 1-3 OR FEVER Last administered on 10/30/18 07:32; Admin Dose 650 MG; Start 10/26/18 at 12:30 Aspirin (Halfprin) 81 mg DAILY PO Last administered on 10/30/18 08:33; Admin Dose 81 MG; Start 10/26/18 at 12:30 Carvedilol (Coreg) 25 mg Q8 PO Last administered on 10/30/18 13:45; Admin Dose 25 MG; Start 10/26/18 at 14:00 Clonidine (Catapres) 0.1 mg BID PO Last administered on 10/29/18 11:01; Admin Dose 0.1 MG; Start 10/26/18 at 12:30 Hydroxychloroquine Sulfate (Plaquenil) 200 mg DAILY PO Last administered on 10/30/18 13:44; Admin Dose 200 MG; Start 10/26/18 at 13:30 Lactobacillus Acidophilus/ Rhamnosus (Culturelle) 1 cap BID PO Last administered on 10/30/18 08:33; Admin Dose 1 CAP; Start 10/26/18 at 13:30 Losartan Potassium (Cozaar) 50 mg BID PO Last administered on 10/29/18 08:17; Admin Dose 50 MG; Start 10/26/18 at 12:30 Mycophenolate Mofetil (Cellcept) 1,000 mg BID PO Last administered on 10/30/18 08:34; Admin Dose 1,000 MG; Start 10/26/18 at 13:30 Sucralfate (Carafate) 1 gm QID PO Last administered on 10/30/18 13:44; Admin Dose 1 GM; Start 10/26/18 at 13:00 Epoetin Guanaco (Epogen (Esrd)) 6,000 units AFTER DIALYSIS SC Last administered on 10/28/18 15:43; Admin Dose 6,000 UNITS; Start 10/26/18 at 17:00 Norepinephrine 250 ml @ 1.875 mls/ hr TITRATE IV ; Start 10/26/18 at 22:00 Nifedipine (Procardia) 20 mg Q6 PO Last administered on 10/30/18 13:45; Admin Dose 20 MG; Start 10/27/18 at 00:00 Pantoprazole (Protonix Iv) 40 mg BID@06,18 IV Last administered on 10/30/18 06:31; Admin Dose 40 MG; Start 10/27/18 at 06:00 Miscellaneous Information 1 ea NOTE XX ; Start 10/27/18 at 06:30 Glucose (Glutose) 15 gm Q15M PRN PO DECREASED GLUCOSE; Start 10/27/18 at 06:30 Glucose (Glutose) 22.5 gm Q15M PRN PO DECREASED GLUCOSE; Start 10/27/18 at 06:30 Dextrose (D50w Syringe) 25 ml Q15M PRN IV DECREASED GLUCOSE Last administered on 10/28/18at 00:14; Admin Dose 25 ML; Start 10/27/18 at 06:30 Dextrose (D50w Syringe) 50 ml Q15M PRN IV DECREASED GLUCOSE; Start 10/27/18 at 06:30 Glucagon (Glucagen) 1 mg Q15M PRN IM DECREASED GLUCOSE; Start 10/27/18 at 06:30 Glucose (Glutose) 15 gm Q15M PRN BUCCAL DECREASED GLUCOSE; Start 10/27/18 at 06:30 Vancomycin HCl (Vanco Iv Per Pharmacy) VANCOMYCIN PER PHARMACY PER PROTOCOL XX ; Start 10/27/18 at 08:00 Cefepime HCl 50 ml @ 100 mls/hr Q24H IVPB Last administered on 10/30/18at 08:33; Admin Dose 100 MLS/HR; Start 10/27/18 at 08:00 Heparin Sodium (Porcine) (Heparin (1000 Units/ml)) 2,000 unit WITH DIALYSIS HE Last administered on 10/28/18at 09:15; Admin Dose 2,000 UNIT; Start 10/27/18 at 18:00 Albumin Human 50 ml @ 100 mls/hr WITH DIALYSIS PRN IV SBP lower than 90 mm Hg; Start 10/27/18 at 18:00 Sodium Chloride (NS) -To prime the dialy... DIRECTED FOR HD PRN IV SBP lower than 90 mm Hg; Start 10/27/18 at 18:00 Heparin Sodium (Porcine) (Heparin (1000 Units/ml)) 4,500 unit AFTER DIALYSIS CATHETER Last administered on 10/30/18at 12:29; Admin Dose 4,500 UNIT; Start 10/28/18 at 09:30 Diphenhydramine HCl (Benadryl) 50 mg ONCE PRN PO Itching Last administered on 10/29/18at 00:55; Admin Dose 50 MG; Start 10/29/18 at 00:30 Morphine Sulfate (morphine SULFATE (PF)) 1 mg Q8H PRN IV SEVERE PAIN LEVEL 7-10 Last administered on 10/30/18at 06:31; Admin Dose 1 MG; Start 10/29/18 at 20:00 Albumin Human 100 ml @ 100 mls/hr WITH DIALYSIS PRN IV BP SUPPORT; Start 10/30/18 at 09:30 ARTURO AMADOR MD Oct 30, 2018 14:18
--- NOTE | 2018-10-30 14:28 | PDOCDIS ---
Discharge Instructions DIAGNOSIS Discharge Diagnosis CONDITION [id number] Patient Condition: [id number] Stable HOME CARE INSTRUCTIONS: [id number] Diet Instructions: [id number] Regular [id number] Special Diet: Mncfi2q Renal ACTIVITY: [id number] Activity Restrictions: Andgo4w Slowly Increase Activity Rest between Activity FOLLOW UP/APPOINTMENTS Follow-up Plan 1. Followup with your primary doctor within the next 1 week. If you don't have one please let someone know, we can give you resources that may help you pick one. You may call Dr Lyndon Dean's office. he's accepting new patients Name, Degree: Lyndon Dean MD Specialty: Internal Medicine Comments: Office Address: [address] [place] [address] [place], [place] [phone] Office Office You may also call your insurance company to assign one to you. 2. Please also followup with your routine hemodialysis with Dr Vicente Dean 3. Review your medication list with your nurse before leaving and if you need new prescriptions please let your nurse know. 4. I may have made changes to your home medications or given you new prescriptions, please let your primary doctor know as well. 5. Stay compliant with your medications and report any side effects to your PCP or pharmacist. 6. Return to the ER if you have any concerns and cannot reach your doctors or call your insurance company, they usually have a nurse that can help you. FARHAD LEZAMA Oct 30, 2018 14:28
[2018-10-30] MEDS ORDERED: SERT25TA83 PO (14:48)
[2018-10-30] MEDS ORDERED: PANT40TA4 PO (14:48)
[2018-10-30] MEDS ORDERED: HYDR-842 PO (14:48)
[2018-10-30] MEDS ORDERED: LACT1CAP28 PO (14:48)
[2018-10-30] MEDS ORDERED: NIFE60TA2 PO (14:49)
[2018-10-30] MEDS ORDERED: GENT100P4 IV (14:53)
[2018-10-30] MEDS ORDERED: GENTAMICIN 80 MG INJ IVPB ONE (15:00)
--- NOTE | 2018-10-30 15:04 | NUR ---
PT EVAL Therapy day number 1 Evaluation Start Time 14:06 Evaluation Total Time 0 min Subjective Current complaint of pain Pain Scale NUMERIC Pain Intensity 10 (0-10) Patient Stated Goal for Pain Relief 0 (0-10) Pain Level Comment generalized pain Pre Treatment Vital Signs Stable Yes - 127/62, 100%O2 sats on RA, 75bpm Exercise Assessment Label Bilat Lower Extremity Exercise Type Active ROM Additional Exercise Comments semisupine APs, heel slides, SLR Supine to Sit Stand by Assist Transfer Sit to Stand Ability Stand by Assist Bed Mobility Sit to Supine Stand by Assist Bed Transfer Ability Contact Guard Assist Chair Transfer Ability Contact Guard Assist Sitting Tolerance 20 min Patient uses wheelchair Not Applicable Gait Assist Levels Contact Guard Assist Assistive Devices Front Wheel Walker Ambulation Distance 25 feet Additional Gait Comments very slow wilver, decreased step length, distance limited due to fatigue/d Static Sitting Balance Good Dynamic Sitting Balance Fair plus Standing Static Balance Fair plus Dynamic Standing Balance Fair plus Additional Balance Assessments Comments FWW Safety Judgement Good Activity Tolerance Poor Post Treatment Pain Intensity 10 0-10 Quality Indicators Dizziness Variance Documentation SEE PT EVAL PT Technical Record Comment PT EVAL Pt is a 33 yo F with PMH of lupus, ESRD, HTN, chronic thrombocytopenia who presented to [facility] with 1-day history of epigastric/substernal pain and waking up from sleep unable to breathe. During hospital course pt experienced acute respiratory failure and was intubated on 10/26 and extubated on 10/27. Pt now S/P thoracentesis on 10/27/18. Pt received in 6W, telemetry. PLOF: Pt lives with parents and 2 children in 2nd floor apartment with no elevator access. Ambulatory without AD, though pt does own a FWW. Pt reports father is currently not working, available to assist pt 23/05. Pt requires assistance for ADLs such as cleaning, cooking, bathing, but Marzena for mobility. CLOF: ALTAGRACIA Brooks cleared pt for PT evaluation. Pt received in bed, vitals assessed and stable, agreeable and educated in purpose of PT evaluation. Bed mobility, transfer, and gait assessment as described above. Pt returned to bed, all needs in reach, bed alarm activated, no signs of distress. RN notified of pt's status Recommendation: Pt presents with generalized weakness and fatigue, slow for mobility tasks though able to perform at SBA-CGA level. Gait steady though with very slow wilver and decreased step length using FWW (25'). Pt will benefit from additional skilled PT services during hospital stay to improve overall strength and endurance to decrease caregiver burden. Anticipating home discharge with family assistance once cleared by MD. Pt already owns FWW, RECOMMEND HHPT SERVICES. Plan: Continue c PT POC (Daily x 5)
--- NOTE | 2018-10-30 15:21 | NUR ---
ADAM NOTE MET WITH PATIENT AT BEDSIDE AND PER PT SHE GOES TO [facility], Address: [address] [place], [place] [address] CM ATTEMPTED TO CALL THE CENTER SEVERAL TIMES AND NO ANSWER. CM WILL CONTINUE TO CALL. Addendum: 10/30/18 at 1525 by FRANCI MEDINA RN, CM Amended: Links added.
[2018-10-30] MEDS ORDERED: GENTAMICIN 80 MG/NS (PMX) 50 ML IVPB SCH (16:00)
--- NOTE | 2018-10-30 16:12 | NUR ---
ADAM NOTE CALLED THE CENTER SEVERAL MORE TIMES AND NO ANSWER, CM FAXED OVER THE ORDER FOR ABX AND CLINICALS, DIALYSIS RUN SHEETS TO [phone] AND WILL ENDORSE TO CM TO FOLLOW UP IN AM. ALSO SENT MESSAGE TO MD LEZAMA FOR UPDATE WILL AWAIT HER ANSWER.ALTAGRACIA BURGOS. RAJESH MEDINA RN,[facility] Addendum: 11/01/18 at 1316 by FRANCI MEDINA RN, CM CM NOTE CALLED THE CENTER AND S/W MARKETING ANALYTICS ANALYST AND CM REFAXED ORDER FOR ABX AND CLINICALS, DIALYSIS RUN SHEETS TO [phone], PER MARKETING ANALYTICS ANALYST SHE WILL UPDATE RN AND FILES.
[2018-10-30] MEDS: EPOETIN 3000 UNITS/1 ML INJ (ESRD) SC SCH (16:41)
--- NOTE | 2018-10-30 17:48 | NUR ---
D/C instructions: Pt states that she will follow up with HD clinic as usual as outpatient. Pt states that she will see her PCP and Dr. Ming Dean as outpatient. Pt states that she will follow all new medication prescriptions and changes. All d/c questions answered. Pt given d/c instructions, health summary, and education. Pt says she will follow renal diet at home.
--- NOTE | 2018-10-30 18:20 | NUR ---
Discharge: Pt d/c via w/c with [facility], and family member. Pt's father waiting in car in parking lot to take patient home. Pt states that she has all belongings. No complaints. Not in distress. Pleasant. Stable. V/S stable. Pt has d/c paperwork.
--- NOTE | 2018-11-01 13:16 | NUR ---
ADAM NOTE [facility], Address: [address] [place] [address] CM REFAXED ORDER AND CLINICALS AGAIN TODAY. S/W NO EXPERIENCE AND SHE WILL UPDATE.
== END 2018-10-30 18:18 | disposition home or self-care (01) | DRG 208 ==
LOC: E/R 23:25 → TEL 10-26 05:35 → INTOOBSV 10-26 05:35 → ICU 10-26 14:27 → OBSVTOIN 10-27 16:04 → 6WM 10-28 16:23
PROVIDERS: ADMIT Family Medicine; ATTEND Internal Medicine
PROC: 5A1D70Z Performance of Urinary Filtration, Intermittent, Less than 6 Hours Per Day (ICD-10-PCS; 2018-10-26)
PROC: 5A1935Z Respiratory Ventilation, Less than 24 Consecutive Hours (ICD-10-PCS; principal; 2018-10-27)
PROC: 0W9B3ZZ Drainage of Left Pleural Cavity, Percutaneous Approach (ICD-10-PCS; 2018-10-27)
PROC: 0BH17EZ Insertion of Endotracheal Airway into Trachea, Via Natural or Artificial Opening (ICD-10-PCS; 2018-10-27)
PROC: 30233N1 Transfusion of Nonautologous Red Blood Cells into Peripheral Vein, Percutaneous Approach (ICD-10-PCS; 2018-10-29)
DX: J96.01 Acute respiratory failure with hypoxia (principal); N18.6 End stage renal disease; J81.0 Acute pulmonary edema; J18.9 Pneumonia, unspecified organism; K72.00 Acute and subacute hepatic failure without coma; K86.1 Other chronic pancreatitis; J90 Pleural effusion, not elsewhere classified; I12.0 Hypertensive chronic kidney disease with stage 5 chronic kidney disease or end stage renal disease; E87.70 Fluid overload, unspecified; D69.59 Other secondary thrombocytopenia; D18.02 Hemangioma of intracranial structures; D63.1 Anemia in chronic kidney disease; E78.5 Hyperlipidemia, unspecified; F41.9 Anxiety disorder, unspecified; M32.14 Glomerular disease in systemic lupus erythematosus; Z76.5 Malingerer [conscious simulation]; Z99.2 Dependence on renal dialysis; Z79.82 Long term (current) use of aspirin
CPT/HCPCS: 36415; 36430; 36600; 71045; 76604; 76705; 76942; 80053; 80202; 82550; 82553; 82728; 82803; 82962; 83036; 83540; 83690; 83735; 84484; 85025; 85049; 85610; 85670; 85730; 86704; 86706; 86850; 86900; 86901; 86920; 87081; 90935; 92610; 93005; 93308; 94002; 94003; 94660; 94664; 94770; 96374; 96375; 97161; 99217; G0378; C9113; J0692; J0886; J1200; J1580; J1644; J1940; J2060; J2270; J2274; J2405; J3370; J3480; J7517; P9016

== ENCOUNTER 2018-11-15 04:54 | Emergency (ER) | payer MEDICARE, OTHER ==
[~2018-11-15] VITALS: Wt 46.6 kg
[~2018-11-15 04:54] MED LIST changes: +CARV6.2579 PO; -FLUC200T PO; +GENT100P4 IV; -GUAI120S26 PO; +HYDR-842 PO; -LEVO250T9 PO; -LORA1TAB PO; +NIFE60TA2 PO; -NIFEdipine (XL) PO; -OXYC-438 PO; -RANI150T35 PO; +SERT25TA83 PO; -SUCR1TAB56 PO; +TRAM50TA PO
[2018-11-15] MEDS ORDERED: VALA10004 PO (05:34)
[2018-11-15] MEDS ORDERED: IBUP800T48 PO (05:34)
--- NOTE | 2018-11-15 05:41 | ERD ---
ER Documentation Chief Complaint Chief Complaint RASH ON LEGS X'S 2 DAYS HPI 33-year-old female complaining of rash on her right upper leg times 2 days. Patient states the rash has been extremely painful. Denies itching. Denies fever or chills. Denies shortness of breath. Denies exposure to new foods or new cleaning products. History of childhood chickenpox. ROS All systems reviewed and are negative except as per history of present illness. Medications Home Meds Active Scripts Ibuprofen* (Motrin*) 800 Mg Tab, 800 MG PO Q8 PRN for PAIN AND OR ELEVATED TEMP, #30 TAB Prov:BHAVNA MICHAEL. RAILROAD HAND 11/15/18 Valacyclovir HCl (Valtrex) 1,000 Mg Tablet, 1000 MG PO TID for 7 Days, TAB Prov:BHAVNA MICHAEL. RAILROAD HAND 11/15/18 Gentamicin in NaCl, Iso-Osm (Gentamicin 100 mg/Ns 100 ml) 100 Mg/100 Ml Piggyback, 70 MG IV AFTER DIALYSIS, #4 DOSE Prov:FARHAD LEZAMA 10/30/18 Nifedipine (Procardia Xl) 60 Mg Tab.er.24, 60 MG PO BID for 30 Days, #60 TAB 2 Refills Prov:FARHAD LEZAMA Fabrizio 10/30/18 Sertraline Hcl* (Sertraline Hcl*) 25 Mg Tablet, 25 MG PO DAILY for anxiety, #30 TAB Prov:FARHAD LEZAMA Fabrizio 10/30/18 Hydroxyzine Hcl* (Atarax*) 25 Mg Tab, 50 MG PO Q8H PRN for ITCHING, #30 TAB Prov:FARHAD LEZAMA Fabrizio 10/30/18 Lactobacillus Rhamnosus GG (Culturelle) 1 Each Capsule, 1 CAP PO BID for 10 Days, #20 CAP Prov:FARHAD LEZAMA Fabrizio 10/30/18 Pantoprazole* (Pantoprazole*) 40 Mg Tablet.dr, 40 MG PO DAILY, #30 TAB 2 Refills Prov:FARHAD LEZAMA 10/30/18 Furosemide (Lasix) 20 Mg Tab, 20 MG PO BID DIURETICS for 10 Days, #20 TAB Prov:GIANCARLO NOGUERA MD 10/19/18 Clonidine Hcl* (Catapres*) 0.1 Mg Tablet, 0.1 MG PO BID for 10 Days, #20 TAB 1 Refill Prov:GIANCARLO NOGUERA MD 10/19/18 Carvedilol* (Carvedilol*) 25 Mg Tablet, 25 MG PO Q8 for 10 Days, #30 TAB 1 Refill Prov:GIANCARLO NOGUERA MD 10/19/18 Aspirin* (Aspirin* (EC)) 81 Mg Tablet.dr, 81 MG PO DAILY for 30 Days, #30 otc Prov:GIANCARLO NOGUERA MD 09/24/18 Acetaminophen* (Tylenol*) 325 Mg Tablet, 650 MG PO Q6H PRN for PAIN LEVEL 1-3 OR FEVER for 1 Day, TAB Prov:GIANCARLO NOGUERA MD 09/24/18 Losartan Potassium* (Cozaar*) 50 Mg Tablet, 50 MG PO BID, #60 TAB Prov:VIRGINIA MUSA 08/09/18 Reported Medications Carvedilol* (Carvedilol*) 6.25 Mg Tablet, 6.25 MG PO BID, #60 TAB 10/26/18 Tramadol Hcl* (Ultram*) 50 Mg Tablet, 100 MG PO Q8, TAB 10/26/18 Metoclopramide* (Reglan*) 10 Mg Tablet, 10 MG PO Q6H PRN for NAUSEA AND OR VOMITING, TAB 09/15/18 Mycophenolate Mofetil* (Mycophenolate Mofetil*) 500 Mg Tablet, 1000 MG PO BID, TAB TAKE 2 TABLET BY MOUTH EVERY MORNING AND EVENING 06/30/18 Hydroxychloroquine Sulfate* (Hydroxychloroquine Sulfate*) 200 Mg Tablet, 200 MG PO DAILY, TAB TAKE 1 TAB BY MOUTH EVERY TUESDAY-Tuesday06/30/18 Allergies Allergies: Coded Allergies: adhesive tape (Verified Allergy, Unknown, 10/26/18) hydrocodone (Unverified Allergy, Unknown, paralysis, 10/13/18) PMhx/Soc Anesthesia Reaction: No Hx Neurological Disorder: No Hx Respiratory Disorders: Yes (SHORTNESS OF BREATH) Hx Cardiac Disorders: Yes (2 [place] IN JUL 2018, HTN) Hx Psychiatric Problems: Yes (ANXIETY) Hx Miscellaneous Medical Probl: Yes (lupus, ESRD, HTN, chronic thrombocytopenia) Hx Alcohol Use: No Hx Substance Use: No Hx Tobacco Use: No Smoking Status: Never smoker Physical Exam Vitals Vital Signs Date Temp Pulse Resp B/P (MAP) Pulse Ox O2 O2 Flow FiO2 Time Delivery Rate 11/15/18 98.6 73 18 190/102 100 04:59 (131) Physical Exam General: Well-developed, well-nourished, conscious and coherent, in no distress Skin: Warm and dry, good texture and turgor. 3 large clusters of vesicular lesions on erythematous bases on the anterior right upper thigh, one cluster of the vesicular lesions on erythematous base and right buttock, all along the L2 dermatome. Head: Normocephalic without evidence of trauma Chest: Normal AP diameter. Good expansion without retractions. Nontender. Lungs are clear to auscultate bilaterally with good tidal volume Heart: Regular rate and rhythm. No murmur, rub, or gallops heard Extremities: Full range of motion. Good strength bilaterally. No erythema, ecchymosis, or edema. Peripheral pulses are intact. Sensation intact Neuro: Alert and oriented 4, GCS 15. Procedures/MDM 33-year-old female present ED was painful skin lesion on her right upper leg. History and exam findings are consistent with herpes zoster outbreak. I doubt toxic shock syndrome, streptococcal scalded disease syndrome, toxic epidermal necrolysis, Monteiro-Darrell syndrome, [place] spotted fever. Patient appears well, stable for discharge and outpatient management. Medical decision making shared with patient and family. Education provided to patient and family. Patient and family expressed understanding of the plan. Medications on discharge: Valacyclovir, ibuprofen. Follow-up: Primary care provider in 2-3 days or return to ED if worse. Disclaimer: Inadvertent spelling and grammatical errors are likely due to EHR/dictation software use and do not reflect on the overall quality of patient care. Also, please note that the electronic time recorded on this note does not necessarily reflect the actual time of the patient encounter. Departure Diagnosis: Primary Impression: Shingles Herpes zoster complications: without complications Qualified Codes: B02.9 - Zoster without complications Condition: Stable Patient Instructions: Shingles (Herpes Zoster) [facility] Usted se jovel hecho un examen mdico de control que le indica que no est en onofre condicin que requiera tratamiento urgente en el Departamento de Emergencia. Un estudio ms profundo y el tratamiento de perez condicin pueden esperar sin ningn riesgo hasta que usted sea atendida/o en el consultorio de perez mdico o onofre clnica. Es responsabilidad suya arreglar onofre franck para el seguimiento del juan. MANEJO DE CONDICIONES NO URGENTES EN EL FUTURO 1) Si usted tiene un mdico de atencin primaria: Usted debera llamar a perez mdico de atencin primaria antes de venir al departamento de emergencia. Despus de las horas de consultorio, perez doctor o perez asociado/a est disponible por telfono. El mdico o enfermero de milind en el servicio telefnico puede asesorarle por peyton medio para atender el problema, o juan contrario se puede programar onofre franck. 2) Si usted no tiene un mdico de atencin primaria: Llame al mdico o clnica de referencia que aparece abajo lolita las horas de consultorio para hacer onofre rfanck para que le vean. CLINICAS: [place] [id number] [phone] [facility] [place] [phone] [id number] [facility]. [facility] [phone] [address] [facility] [place] [id number] [phone] [facility] [place] [id number] [phone] [facility]. [phone] [address] Additional Instructions: Llame al doctor MAANA y ernesto onofre FRANCK PARA DENTRO DE 2-3 ORTEGA.Dgale a la secretaria que nosotros le instruimos hacer esta franck.Avise o llame si perez condicin se empeora antes de la franck. Regresa aqui si peor o no mejor. BHAVNA MICHAEL NP Nov 15, 2018 05:41
[2018-11-15 06:01] VITALS: BP 157/88; PULSE 73; RESP 18
[2018-11-16] MEDS ORDERED: ACYC800T5 PO (02:04)
[2018-11-16] MEDS ORDERED: BEN25 PO (02:09)
[2018-11-16] MEDS ORDERED: TRAM50TA2 PO (02:09)
[2018-11-16] MEDS ORDERED: PRED5TAB PO (05:59)
[2018-11-16] MEDS ORDERED: HYDR-3029 PO (05:59)
== END 2018-11-15 06:02 | disposition home or self-care (01) ==
LOC: FTE 04:54
DX: B02.9 Zoster without complications (principal); R40.2412 Glasgow coma scale score 13-15, at arrival to emergency department; I12.0 Hypertensive chronic kidney disease with stage 5 chronic kidney disease or end stage renal disease; N18.6 End stage renal disease; I25.2 Old myocardial infarction; Z79.82 Long term (current) use of aspirin
CPT/HCPCS: 99282

== ENCOUNTER 2018-11-16 00:56 | Emergency (ER) | payer MEDICARE, OTHER ==
[~2018-11-16] VITALS: Ht 121.9 cm; Wt 47.1 kg
[~2018-11-16 00:56] MED LIST changes: +IBUP800T48 PO; +VALA10004 PO
[2018-11-16 01:04] VITALS: Ht 121.9 cm; Wt 47.1 kg
--- NOTE | 2018-11-16 01:50 | ERD ---
ER Documentation Chief Complaint Chief Complaint C/O GENERALIZED BODY ITCHINESS, DX W/ SHINLES TODAY HPI This is a 33-year-old female who presents emergency department with complaints of generalized itchiness. Stated that she has shingles. LMP: Denies. Denies headache, head injury, loss of consciousness, dizziness, neck pain, neck stiffness, throat pain, difficulty swallowing, difficulty breathing lying flat, shoulder pain, chest pain, back pain, abdominal pain, nausea, vomiting, constipation, diarrhea, urinary symptoms, or possibility being , loss of bowel and bladder control, trauma, injury, falls, difficulty walking due to pain, numbness or tingling sensation, calf pain, recent travel, recent major surgery in the last 3 weeks, calf pain, recent long travel, recent exposure to any illness, recent antibiotic use in the last 3 months, fever, chills, seizures. Past medical history: Stated that she is dialysis patient. Surgical history: Social: Denies smoking, use of alcoholic beverages, use of illegal drugs. ROS All systems reviewed and are negative except as per history of present illness. Medications Home Meds Active Scripts Diphenhydramine Hcl* (Benadryl*) 25 Mg Cap, 25 MG PO Q6 PRN for ITCHING/RASH, #30 TAB Prov:FADY ADAM 11/16/18 Tramadol HCl (Tramadol HCl) 50 Mg Tablet, 50 MG PO Q4 PRN for severe pain, #6 TAB Prov:PASILAFADY VALADEZ F 11/16/18 Acyclovir* (Zovirax*) 800 Mg Tablet, 800 MG PO 5 TIMES DAILY for 7 Days, TAB Prov:FADY ADAM F 11/16/18 Ibuprofen* (Motrin*) 800 Mg Tab, 800 MG PO Q8 PRN for PAIN AND OR ELEVATED TEMP, #30 TAB Prov:BHAVNA MICHAEL. CUSTOMER ACCOUNT MANAGER 11/15/18 Valacyclovir HCl (Valtrex) 1,000 Mg Tablet, 1000 MG PO TID for 7 Days, TAB Prov:BHAVNA MICHAEL. CUSTOMER ACCOUNT MANAGER 11/15/18 Gentamicin in NaCl, Iso-Osm (Gentamicin 100 mg/Ns 100 ml) 100 Mg/100 Ml Piggyb ack, 70 MG IV AFTER DIALYSIS, #4 DOSE Prov:FARHAD LEZAMA 10/30/18 Nifedipine (Procardia Xl) 60 Mg Tab.er.24, 60 MG PO BID for 30 Days, #60 TAB 2 Refills [facility] 10/30/18 Sertraline Hcl* (Sertraline Hcl*) 25 Mg Tablet, 25 MG PO DAILY for anxiety, #30 TAB Prov:[facility] 10/30/18 Hydroxyzine Hcl* (Atarax*) 25 Mg Tab, 50 MG PO Q8H PRN for ITCHING, #30 TAB Prov:[facility]. 10/30/18 Lactobacillus Rhamnosus GG (Culturelle) 1 Each Capsule, 1 CAP PO BID for 10 Days, #20 CAP Prov:[facility] [place] 10/30/18 Pantoprazole* (Pantoprazole*) 40 Mg Tablet., 40 MG PO DAILY, #30 TAB 2 Refills Prov[facility] 10/30/18 Furosemide (Lasix) 20 Mg Tab, 20 MG PO BID DIURETICS for 10 Days, #20 TAB Prov:GIANCARLO NOGUERA MD 10/19/18 Clonidine Hcl* (Catapres*) 0.1 Mg Tablet, 0.1 MG PO BID for 10 Days, #20 TAB 1 Refill Prov:GIANCARLO NOGUERA MD 10/19/18 Carvedilol* (Carvedilol*) 25 Mg Tablet, 25 MG PO Q8 for 10 Days, #30 TAB 1 Refill Prov:GIANCARLO NOGUERA MD 10/19/18 Aspirin* (Aspirin* (EC)) 81 Mg Tablet., 81 MG PO DAILY for 30 Days, #30 otc Prov:GIANCARLO NOGUERA MD 09/24/18 Acetaminophen* (Tylenol*) 325 Mg Tablet, 650 MG PO Q6H PRN for PAIN LEVEL 1-3 OR FEVER for 1 Day, TAB Prov:GIANCARLO NOGUERA MD 09/24/18 Losartan Potassium* (Cozaar*) 50 Mg Tablet, 50 MG PO BID, #60 TAB Prov:VIRGINIA MUSA 08/09/18 Reported Medications Carvedilol* (Carvedilol*) 6.25 Mg Tablet, 6.25 MG PO BID, #60 TAB 10/26/18 Tramadol Hcl* (Ultram*) 50 Mg Tablet, 100 MG PO Q8, TAB 10/26/18 Metoclopramide* (Reglan*) 10 Mg Tablet, 10 MG PO Q6H PRN for NAUSEA AND OR VOMITING, TAB 09/15/18 Mycophenolate Mofetil* (Mycophenolate Mofetil*) 500 Mg Tablet, 1000 MG PO BID, TAB TAKE 2 TABLET BY MOUTH EVERY MORNING AND EVENING 06/30/18 Hydroxychloroquine Sulfate* (Hydroxychloroquine Sulfate*) 200 Mg Tablet, 200 MG PO DAILY, TAB TAKE 1 TAB BY MOUTH EVERY TUESDAY-Tuesday06/30/18 Allergies Allergies: Coded Allergies: adhesive tape (Verified Allergy, Unknown, 10/26/18) hydrocodone (Unverified Allergy, Unknown, paralysis, 10/13/18) PMhx/Soc Anesthesia Reaction: No Hx Neurological Disorder: No Hx Respiratory Disorders: Yes (SHORTNESS OF BREATH) Hx Cardiac Disorders: Yes (2 IN IN JUL 2018, HTN) Hx Psychiatric Problems: Yes (ANXIETY) Hx Miscellaneous Medical Probl: Yes (lupus, ESRD, HTN, chronic thrombocytopenia) Hx Alcohol Use: No Hx Substance Use: No Hx Tobacco Use: No Physical Exam Vitals Vital Signs Date Temp Pulse Resp B/P (MAP) Pulse Ox O2 O2 Flow FiO2 Time Delivery Rate 11/16/18 98.0 101 18 184/108 98 Room Air 02:28 (133) 11/16/18 97.4 118 20 181/110 98 01:04 (133) Physical Exam Const: No acute distress Head: Atraumatic Eyes: Normal Conjunctiva ENT: Normal External Ears, Nose and Mouth. Neck: Full range of motion. No meningismus. Resp: Clear to auscultation bilaterally Cardio: Regular rate and rhythm, no murmurs Abd: Soft, non tender, non distended. Normal bowel sounds Skin: No petechiae or rashes. Examined with female ring sorter, Vernell EMT. Vesicular lesions to the right lower extremity. No abscess. No calf tenderness bilaterally. Bilateral pedal pulses are within normal limits. Capillary refills to bilateral lower extremities are less than 2 seconds. Back: No midline or flank tenderness Ext: No cyanosis, or edema Neur: Awake and alert. No neurological deficit. Psych: Normal Mood and Affect Results 24 hrs Current Medications Medications Dose Sig/Damaso Start Time Status Last (Trade) Ordered Route PRN Stop Time Admin Dose Reason Admin 1 mg ONCE STAT 11/16/18 DC 11/16/18 Hydromorphone IM 02:07 02:31 HCl 11/16/18 02:08 (Dilaudid) Procedures/MDM Diagnostic tests: Clinical exam. This case was discussed with my supervising physician, Dr. Hugh Santillan who agreed my medical decision making. Treatment: Dilaudid IM. Re-evaluation: Denies pain. No neurological deficits. Differential diagnosis I have low suspicion for sepsis, Monteiro-Darrell syndrome, scabies. Final diagnosis: Shingles. Prescription: Zovirax/acyclovir. Tramadol p.o. Benadryl. Follow-up with PCP in the next 24-48 hours. Come back here in the emergency department for any new symptoms or any worsening symptoms. All questions and concerns were answered. Patient and family members verbalized understanding and agreed with plan of care. Hemodynamically stable on discharge. Departure Diagnosis: Primary Impression: Shingles Condition: Stable Additional Instructions: Follow-up with PCP in the next 24-48 hours. Come back here in the emergency department for any new symptoms or any worsening symptoms. FADY ADAM Nov 16, 2018 01:50
[2018-11-16] MEDS ORDERED: ACYC800T5 PO (02:04)
[2018-11-16] MEDS ORDERED: HYDROmorphONE 0.5 MG/0.5 ML SYG IM STA (02:07)
[2018-11-16] MEDS ORDERED: TRAM50TA2 PO (02:09)
[2018-11-16] MEDS ORDERED: BEN25 PO (02:09)
[2018-11-16 02:28] VITALS: BP 184/108; PULSE 101; RESP 18
[2018-11-16] MEDS ORDERED: PRED5TAB PO (05:59)
[2018-11-16] MEDS ORDERED: HYDR-3029 PO (05:59)
== END 2018-11-16 02:43 | disposition home or self-care (01) ==
LOC: FTE 00:56
DX: B02.9 Zoster without complications (principal); I10 Essential (primary) hypertension; I25.2 Old myocardial infarction; Z79.82 Long term (current) use of aspirin
CPT/HCPCS: 96372; J1170

== ENCOUNTER 2018-11-16 05:41 | Inpatient (IN) | payer MEDICARE, OTHER ==
[~2018-11-16] VITALS: Ht 304.8 cm; Wt 45.8 kg
[2018-11-16] VITALS (47 sets, daily range): BP systolic 131–171; BP diastolic 79–111; PULSE 111–135; RESP 14–36; Ht 304.8 cm; Wt 45.8 kg
[~2018-11-16 05:41] MED LIST changes: +ACYC800T5 PO; +BEN25 PO; +TRAM50TA2 PO
[2018-11-16] MEDS ORDERED: HYDR-3029 PO (05:59)
[2018-11-16] MEDS ORDERED: PRED5TAB PO (05:59)
[2018-11-16] MEDS ORDERED: hydrALAzine 20 MG INJ IV ONE (06:30)
--- NOTE | 2018-11-16 06:44 | ERD ---
ER Documentation Chief Complaint Chief Complaint ALOC HPI This is a 33-year-old female with a history of end-stage renal disease on hemodialysis every Tuesday and Tuesday. The patient also has history of lupus. The patient indicates that 2 days ago she developed a painful pruritic rash on her proximal right thigh. She been seen and evaluated in the emergency department and was diagnosed with shingles. She had been given a prescription of antivirals but went directly from the emergency department to the pharmacy, had the medications filled but did not yet start them. She then went to her dialysis center. When she arrived to the dialysis center she was hypertensive with a systolic blood pressure greater than 200mmHg. She had developed loose watery stools. She was complaining of abdominal pain and a hea dache and therefore was sent to the emergency department to be further evaluated without her dialysis being performed. She states the headache is not the worst headache of her life but is a bandlike headache. The abdominal pain is present in the right lower quadrant. She states it is a deep ache and extends from the area of the rash over the thigh on the right side to the right lower quadrant. Last full run of dialysis was 2 days prior to arrival. She has not had a productive or nonproductive cough. She denies any abnormal urethral discharge. She does not make any urine. She denies any recent fever shaking or chills. ROS All systems reviewed and are negative except as per history of present illness. Medications Home Meds Active Scripts Diphenhydramine Hcl* (Benadryl*) 25 Mg Cap, 25 MG PO Q6 PRN for ITCHING/RASH, #30 TAB Prov:FADY ADAM F 11/16/18 Tramadol HCl (Tramadol HCl) 50 Mg Tablet, 50 MG PO Q4 PRN for severe pain, #6 TAB Prov:PASILAFADY VALADEZ F 11/16/18 Acyclovir* (Zovirax*) 800 Mg Tablet, 800 MG PO 5 TIMES DAILY for 7 Days, TAB Prov:FADY ADAM F 11/16/18 Ibuprofen* (Motrin*) 800 Mg Tab, 800 MG PO Q8 PRN for PAIN AND OR ELEVATED TEMP, #30 TAB Prov:BHAVNA MICHAEL NP 11/15/18 Valacyclovir HCl (Valtrex) 1,000 Mg Tablet, 1000 MG PO TID for 7 Days, TAB Prov:BH[facility] MICHA[facility] 11/15/18 Gentamicin in NaCl, Iso-Osm (Gentamicin 100 mg/Ns 100 ml) 100 Mg/100 Ml Piggyback, 70 MG IV AFTER DIALYSIS, #4 DOSE Prov:FARHAD LEZAMA . 10/30/18 Nifedipine (Procardia Xl) 60 Mg Tab.er.24, 60 MG PO BID for 30 Days, #60 TAB 2 Refills [facility] 10/30/18 Sertraline Hcl* (Sertraline Hcl*) 25 Mg Tablet, 25 MG PO DAILY for anxiety, #30 TAB [facility] 10/30/18 Hydroxyzine Hcl* (Atarax*) 25 Mg Tab, 50 MG PO Q8H PRN for ITCHING, #30 TAB [facility] 10/30/18 Lactobacillus Rhamnosus GG (Culturelle) 1 Each Capsule, 1 CAP PO BID for 10 Days, #20 CAP Prov[facility] 10/30/18 Pantoprazole* (Pantoprazole*) 40 Mg Tablet.dr, 40 MG PO DAILY, #30 TAB 2 Refills Prov[facility] 10/30/18 Clonidine Hcl* (Catapres*) 0.1 Mg Tablet, 0.1 MG PO BID for 10 Days, #20 TAB 1 Refill Prov:GIANCARLO NOGUERA MD 10/19/18 Carvedilol* (Carvedilol*) 25 Mg Tablet, 25 MG PO Q8 for 10 Days, #30 TAB 1 Refill Prov:GIANCARLO NOGUERA MD 10/19/18 Aspirin* (Aspirin* (EC)) 81 Mg Tablet.dr, 81 MG PO DAILY for 30 Days, #30 otc Prov:GIANCARLO NOGUERA MD 09/24/18 Acetaminophen* (Tylenol*) 325 Mg Tablet, 650 MG PO Q6H PRN for PAIN LEVEL 1-3 OR FEVER for 1 Day, TAB Prov:GIANCARLO NOGUERA MD 09/24/18 Losartan Potassium* (Cozaar*) 50 Mg Tablet, 50 MG PO BID, #60 TAB Prov:VIRGINIA MUSA 08/09/18 Reported Medications Prednisone* (Prednisone*) 5 Mg Tab, 5 MG PO DAILY, TAB 11/16/18 Hydroxyzine Hcl* (Hydroxyzine Hcl*) 10 Mg Tablet, 10 MG PO Q6H PRN for ITCHING, #30 TAB 11/16/18 Carvedilol* (Carvedilol*) 6.25 Mg Tablet, 6.25 MG PO BID, #60 TAB 10/26/18 Metoclopramide* (Reglan*) 10 Mg Tablet, 10 MG PO Q6H PRN for NAUSEA AND OR V OMITING, TAB 09/15/18 Mycophenolate Mofetil* (Mycophenolate Mofetil*) 500 Mg Tablet, 1000 MG PO BID, TAB TAKE 2 TABLET BY MOUTH EVERY MORNING AND EVENING 06/30/18 Hydroxychloroquine Sulfate* (Hydroxychloroquine Sulfate*) 200 Mg Tablet, 200 MG PO DAILY, TAB TAKE 1 TAB BY MOUTH EVERY TUESDAY-Tuesday06/30/18 Discontinued Reported Medications Tramadol Hcl* (Ultram*) 50 Mg Tablet, 100 MG PO Q8, TAB 10/26/18 Discontinued Scripts Furosemide (Lasix) 20 Mg Tab, 20 MG PO BID DIURETICS for 10 Days, #20 TAB Prov:GIANCARLO NOGUERA MD 10/19/18 Allergies Allergies: Coded Allergies: adhesive tape (Verified Allergy, Unknown, 10/26/18) hydrocodone (Unverified Allergy, Unknown, paralysis, 10/13/18) PMhx/Soc Anesthesia Reaction: No Hx Neurological Disorder: No Hx Respiratory Disorders: Yes (SHORTNESS OF BREATH) Hx Cardiac Disorders: Yes (2 PR IN JUL 2018, HTN) Hx Psychiatric Problems: Yes (ANXIETY) Hx Miscellaneous Medical Probl: Yes (lupus, ESRD, HTN, chronic thrombocytopenia) Hx Alcohol Use: No Hx Substance Use: No Hx Tobacco Use: No Smoking Status: Never smoker Physical Exam Vitals Vital Signs Date Temp Pulse Resp B/P (MAP) Pulse Ox O2 O2 Flow FiO2 Time Delivery Rate 11/16/18 96.6 82 16 212/124 100 05:49 (153) Physical Exam Constitutional:Well-developed. Well-nourished. HEENT:Normocephalic. Atraumatic.Pupils were equal round reactive to light. Moist mucous membranes.No tonsillar exudates. Neck: No nuchal rigidity. No lymphadenopathy. No posterior cervical spine t enderness or step-offs. Respiratory: Not using accessory muscles of respiration.Lungs were clear to auscultation bilaterally. No rhonchi. No rales. No wheezing. Cardiovascular: Regular rate regular rhythm.No murmurs. No rubs were appreciated.S1, S2 normal. Distal pulses are palpable 2+ bilaterally. GI: Abdomen was soft. Right lower quadrant tenderness nonspecific over McBurney's point. Psoas sign negative. Obturator sign negative. Non Distended. No pulsatile abdominal masses or bruits. No rebound. No guarding. Bowel sounds were present and normal. Muscle skeletal: Full range of motion of both the upper and lower extremities bi laterally.Normal muscle tone.No assymetrical calf tenderness or swelling. Skin: No petechia, no purpura. No lesions on the palms or the soles of the feet. No maculopapular rash. Multiple lesions, smooth surface, firm spherical papules roughly 3-5 mm in diameter flesh-colored translucent with distinct of central umbilication and roughly 25% of the lesions located over the anterior medial right thigh extending into the right inguinal region and no involvement of the labia majora or genital region. Non-circumferential and not following a dermatomal distribution. No involvement of the face or trunk. NEURO: Patient was alert, awake, orientated x3. Patient was drowsy but easily arousable. No facial droop. Gait not observed as patient was too drowsy to ambulate.Speech had regular rate and rhythm. No focal neurological deficits. Results 24 hrs Laboratory Tests Test 11/16/18 06:16 11/16/18 06:38 11/16/18 06:44 11/16/18 06:53 Bedside Glucose 77 mg/dL 79 mg/dL POC Venous Lactate 1.0 mmol/L White Blood Count Pending Red Blood Count Pending Hemoglobin Pending Hematocrit Pending Mean Corpuscular Pending Volume Mean Corpuscular Pending Hemoglobin Mean Corpuscular Pending Hemoglobin Concent Red Cell Pending Distribution Width Platelet Count Pending Mean Platelet Volume Pending Current Medications Medications Dose Sig/Damaso Start Time Status Last (Trade) Ordered Route PRN Stop Time Admin Dose Reason Admin Hydralazine 20 mg ONCE ONCE 11/16/18 DC 1/17/19 HCl IV 06:30 06:59 (Apresoline) 11/16/18 06:31 Procedures/MDM This patient presented to the emergency department with severely elevated blood pressure. My differential diagnosis included but was not limited to conditions that could end-organ damage such as acute coronary syndrome, acute pulmonary edema, aortic dissection, subarachnoid hemorrhage, intracerebral hemorrhage, cerebral infarction, withdrawal syndromes from beta blockers, or states of catecholamine excess such as pheochromocytoma or drug intoxication. The patient had uncontrolled hypertensive with end-organ damage to suggest hypertensive emergency. The treatment goal was immediate reduction of the mean arterial blood pressure. This was done in a controlled, graded manor, using improvement of the patient's condition as a guide. The patient's blood pressure reduction did not exceed more then a 20-25 percent reduction within the first 30 to 60 minutes. The patient was put on a emergency department physician, continuous pulse oximetry, and IV access was established by nursing staff. The antihypertensive agent used was IV hydralazine. I obtained a CT scan of the patient's head which showed no acute i ntracerebral hemorrhage mass-effect or midline shift. 12 Lead EKG tracing ordered and reviewed by myself showed: Normal sinus rhythm of 95 bpm and no arrhythmia. CO interval normal. QRS duration normal. No ST segment elevation No ST segment depression. No changes consistent with acute ischemia. The patient was drowsy upon arrival. However the mother indicated that she administered an Gina prior to arrival as the patient was complaining of itching over the rash site. The patient's rash in her right upper extremity that did not involve the inner genital region included differential diagnosis of basal cell carcinoma, history of cytoma, dermatitis herpetiformis, atopic dermatitis. This did not appear to be a result of meningococcemia. The rash did not have a typical pattern of shingles as it did not follow dermatomal distribution. I did feel her symptoms likely result of molluscum contagiosum. I indicated to the patient and her mother that treatment is a good distraction removal of the virus infected epithelial cells and also to prevent autoinoculation and transmission. He also indicates that the lesions are self-limited and immunocompetent host. The patient did not appear to have other sexually transmitted diseases but I have obtained an HIV gonorrhea and chlamydia culturing. Patient had no physical exam findings to suggest syphilis or hepatitis C. Departure Diagnosis: Primary Impression: Hypertensive emergency without congestive heart failure Additional Impressions: Renal failure Renal failure chronicity: acute on chronic Acute renal failure type: unspecified Chronic kidney disease stage: on chronic dialysis Qualified Codes: N17.9 - Acute kidney failure, unspecified; N18.9 - Chronic kidney disease, unspecified; Z99.2 - Dependence on renal dialysis Molluscum contagiosum Condition: Serious ROLA DANGELO MD Nov 16, 2018 06:43
[2018-11-16] MEDS ORDERED: LORAZEPAM 2 MG INJ IV ONE ×2 (07:30→11:30)
[2018-11-16] MEDS ORDERED: ACETAMINOPHEN 325 MG TAB PO PRN ×2 (08:00→13:30)
[2018-11-16] MEDS ORDERED: ONDANSETRON 4 MG INJ IV PRN (08:00)
[2018-11-16] MEDS ORDERED: LABETALOL HCL 20MG INJ IV ONE (09:00)
[2018-11-16] MEDS ORDERED: niCARdipine-NS 0.1MG/ML DRIP 200 ML IV STA (10:31)
--- NOTE | 2018-11-16 12:05 | CONS ---
Date/Time of Note Date/Time of Note DATE: 11/16/18 TIME: 12:04 Assessment/Plan Assessment/Plan Assessment/Plan 1. Altered mental status, rule out CVA vs possible acute onset seizures 2. Hypertensive emergency 3. ESRD on HD TTS schedule, missed HD today 4. H/o HTN 5. H/o HL 6. H/o Lupus 7. H/o Recent admission at [facility] for acute respiratory failure requirine intubation and ventilator care Plan; Seen in ED, Nicardipine gtt for HTn emegency HD ordred as stat, will ontinue HD TTS, no signs of fluid overlaod a this time CT head,pt has been having continuous twitching movements, consider Neurology consult Thanks for consultation, I will continue to follow up along with Primary team will start Nifedipine ER 60mg BID once pt can take PO Result Diagram: 11/16/18 0644 11/16/18 0644 Results 24hrs Laboratory Tests Test 11/16/18 06:16 11/16/18 06:38 11/16/18 06:44 11/16/18 06:53 Bedside Glucose 77 79 POC Venous Lactate 1.0 White Blood Count 4.5 #L Red Blood Count 3.11 L Hemoglobin 9.7 L Hematocrit 31.2 L Mean Corpuscular 100.3 Volume Mean Corpuscular 31.2 Hemoglobin Mean Corpuscular 31.1 L Hemoglobin Concent Red Cell 17.3 H Distribution Width Platelet Count 123 L Mean Platelet Volume 10.1 Immature 0.900 H Granulocytes % Neutrophils % 57.7 Lymphocytes % 26.0 Monocytes % 13.0 H Eosinophils % 2.0 Basophils % 0.4 Nucleated Red Blood 0.0 Cells % Immature 0.040 H Granulocytes # Neutrophils # 2.6 Lymphocytes # 1.2 Monocytes # 0.6 Eosinophils # 0.1 Basophils # 0.0 Nucleated Red Blood 0.0 Cells # Sodium Level 138 Potassium Level 5.5 H Chloride Level 102 Carbon Dioxide Level 21 Anion Gap 15 H Blood Urea Nitrogen 40 H Creatinine 5.78 H Est Glomerular 8 L Filtrat Rate mL/min Glucose Level 76 Calcium Level 9.0 Total Bilirubin 0.0 L Direct Bilirubin 0.00 Indirect Bilirubin 0.0 Aspartate Amino 28 Transf (AST/SGOT) Alanine 25 Aminotransferase (AL T/SGPT) Alkaline Phosphatase 96 Troponin I < 0.012 Total Protein 7.5 Albumin 3.9 Globulin 3.60 H Albumin/Globulin 1.08 Ratio Serum HCG, NEGATIVE Qualitative Salicylates Level < 1.0 L Acetaminophen Level < 10.0 L Ethyl Alcohol Level < 10.0 H Consultation Date/Type/Reason Admit Date/Time 11/16/2018 Date of Consultation: Nov 16, 2018 Type of Consult NEPHROLOGY Reason for Consultation ESRD on HD, Acute fluid overload Requesting Provider: FARHAD LEZAMA Hx of Present Illness 33-year-old female with history of lupus and end-stage renal disease on hemodialysis on TTS schedule at [facility].. Apparently, she was seen in our emergency room yesterday after she had presented with a rash which was b listers which she has had about a few days and she was diagnosed with shingles and was prescribed antiviral. She had not been picked this up yet however and she was complaining of a lot of itching to her family and she was given some Gina. Her family thinks the Gina she was given caused her to have a lot of nausea, vomiting and she did have one episode of diarrheal stools. She went to the hemodialysis center today and there further blood pressure was severely elevated at 200. Based on that, they did not do dialysis and sent her to the emergency room. She had a HTN emegency requiring Nicardipine gtt, Admitted to ICU. Renal has been consulted for urgent HD need. She missed her HD today at HD unit Subjective hx not possible: pt critical status, other (Confused disoriented, non repsonsive, keeps her Eye closed ) Past Medical History Medical History: high cholesterol, hypertension, other (ESRD on HD , H/o Seizure disorder , H/o respiratory failure requiring Intuabtion and Ventilator care last time ) Medications Current Medications Ondansetron HCl (Zofran Inj) 4 mg ER BRIDGE PRN IV NAUSEA AND/OR VOMITING; Start 11/16/18 at 08:00; Stop 11/17/18 at 07:59 Acetaminophen (Tylenol Tab) 650 mg ER BRIDGE PRN PO MILD PAIN(1-3)OR ELEVATED TEMP; Start 11/16/18 at 08:00; Stop 11/17/18 at 07:59 Nicardipine HCl 200 ml @ 50 mls/hr ONCE STAT IV Last administered on 11/16/18at 10:52; Admin Dose 50 MLS/HR; Start 11/16/18 at 10:31; Stop 11/16/18 at 14:30 Albumin Human 100 ml @ 100 mls/hr WITH DIALYSIS PRN IV SBP less than 90 mm Hg ; Start 11/16/18 at 12:30; Status UNV Sodium Chloride (NS) -To prime the dialy... DIRECTED FOR HD PRN IV SBP less than 90 mm Hg ; Start 11/16/18 at 12:30; Status UNV Allergies: Coded Allergies: adhesive tape (Verified Allergy, Unknown, 10/26/18) hydrocodone (Unverified Allergy, Unknown, paralysis, 10/13/18) Past Surgical History Past Surgical Hx: other (Permacath for HD access ) Family History Significant Family History: no pertinent family hx Social History Alcohol Use: none Smoking Status: Never smoker Drug Use: none Exam/Review of Systems Vital Signs Vitals Vital Signs Date Temp Pulse Resp B/P (MAP) Pulse Ox O2 O2 Flow FiO2 Time Delivery Rate 11/16/18 98.1 130 30 175/97 2 Nasal 11:55 (123) Cannula 11/16/18 2.0 11:39 Exam Constitutional: non-verbal, distress (Moderate distress ) Psych: confusion Head: normocephalic Eyes: other (Keeps eye closed voluntarily ) ENMT: nl external ears & nose Neck: supple Respiratory: congested cough, crackles/rales, diminished breath sounds Cardiovascular: regular rate and rhythm, nl pulses Gastrointestinal: soft Musculoskeletal: muscle weakness, swelling (1-2+ pitting edema ) Extremities: normal pulses Neurological: confused, lethargic, unresponsive Lymph: nl lymph nodes Medications Medications Current Medications Ondansetron HCl (Zofran Inj) 4 mg ER BRIDGE PRN IV NAUSEA AND/OR VOMITING; Start 11/16/18 at 08:00; Stop 11/17/18 at 07:59 Acetaminophen (Tylenol Tab) 650 mg ER BRIDGE PRN PO MILD PAIN(1-3)OR ELEVATED TEMP; Start 11/16/18 at 08:00; Stop 11/17/18 at 07:59 Nicardipine HCl 200 ml @ 50 mls/hr ONCE STAT IV Last administered on 11/16/18at 10:52; Admin Dose 50 MLS/HR; Start 11/16/18 at 10:31; Stop 11/16/18 at 14:30 Albumin Human 100 ml @ 100 mls/hr WITH DIALYSIS PRN IV SBP less than 90 mm Hg ; Start 11/16/18 at 12:30; Status UNV Sodium Chloride (NS) -To prime the dialy... DIRECTED FOR HD PRN IV SBP less than 90 mm Hg ; Start 11/16/18 at 12:30; Status UNV ARTURO AMADOR MD Nov 16, 2018 12:05
[2018-11-16] MEDS ORDERED: SODIUM CHLORIDE 0.9% 1L BAG IV PRN (12:30)
[2018-11-16] MEDS ORDERED: ALBUMIN HUMAN 25% 100 ML IV PRN (12:30)
--- NOTE | 2018-11-16 12:30 | NUR ---
Received patient from ER Dx Hypertensive crisis, on Cardene drip at 7.5 mg/hr, ST 120's .obtunded, patient's mother at the bedside.
[2018-11-16] MEDS: ASPIRIN (EC) 81 MG TAB PO SCH (13:30)
[2018-11-16] MEDS: LOSARTAN 50 MG TAB PO SCH ×2 (13:30→21:00)
[2018-11-16] MEDS ORDERED: traMADol 50 MG TAB PO PRN (13:30)
[2018-11-16] MEDS ORDERED: DIPHENHYDRAMINE 25 MG CAP PO PRN (13:30)
[2018-11-16] MEDS: SERTRALINE 50 MG TAB PO SCH (13:30)
[2018-11-16] MEDS: predniSONE 5 MG TAB PO SCH (13:30)
[2018-11-16] MEDS: NIFEdipine (XL) 60 MG TAB PO SCH ×2 (14:30→23:00)
[2018-11-16] MEDS: MYCOPHENOLATE 250 MG CAP PO SCH ×2 (14:30→23:00)
[2018-11-16] MEDS ORDERED: DILTIAZEM-D5W 125MG/125ML DRIP 125 ML IV SCH (14:30)
[2018-11-16] MEDS ORDERED: VALACYCLOVIR 500 MG TAB PO SCH (14:30)
[2018-11-16] MEDS: HYDROXYCHLOROQUINE 200 MG TAB PO SCH (14:30)
[2018-11-16] MEDS: niCARdipine-NS 0.1MG/ML DRIP 200 ML IV SCH ×3 (15:05→22:59)
--- NOTE | 2018-11-16 16:12 | HP ---
DATE OF ADMISSION: 11/16/2018 TIME OF EVALUATION: About noon. PRESENTING COMPLAINT: Altered mental status, elevated blood pressures, nausea, vomiting and 1 episode of diarrhea. HISTORY OF PRESENTING COMPLAINT: Cynthia is an unfortunate 33-year-old female who is well known to our service from multiple hospitalizations. She has a history of lupus and end-stage renal disease on hemodialysis. Apparently, she was seen in our emergency room yesterday after she had presented with a rash which was blisters which she has had about a few days and she was diagnosed with shingles and was prescribed antiviral. She had not been picked this up yet however and she was complaining of a lot of itching to her family and she was given some Gina. Her family thinks the Gina she was given caused her to have a lot of nausea, vomiting and she did have one episode of diarrheal stools. She went to the hemodialysis center today and there further blood pressure was severely elevated at 200. Based on that, they did not do dialysis and sent her to the emergency room. In the ER, she became quite agitated, is pulling at lines and so she was given some Ativan to calm her down and at this time, she is quite altered and lethargic. She is requiring Cardene drip to keep her blood pressure controlled, so she is being admitted to the intensive care unit while we institute hemodialysis. PAST MEDICAL HISTORY: Positive for: 1. Lupus. 2. End-stage renal disease on hemodialysis. 3. Hypertension. 4. Chronic depression. 5. 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 I say this because the last time the patient was in the hospital, she was constantly requesting intravenous Benadryl as well as intravenous Ativan. She also underwent an episode of respiratory distress and had to be intubated due to fluid overload at that time. PAST SURGICAL HISTORY: Includes dialysis access placement and a . ALLERGIES: 1. ADHESIVE TAPE. 2. HYDROCODONE. SOCIAL HISTORY: The patient resides with her parents and her family who cares for her. Denies tobacco, alcohol or illicit drug use. REVIEW OF SYSTEMS: I could not do a detailed review of systems because the patient is still lethargic and altered. However, my history is from the patient's mother and the pertinent findings are as noted in the HPI. PHYSICAL EXAMINATION: VITAL SIGNS: The patient is tachycardic with heart rates between 103 and 130, temperature 98.1, respirations 30, blood pressure 183/86, saturations 100% on oxygen via nasal cannula on 2 liters per minute. GENERAL: Sleeping, arousable, but quite lethargic, unable to give a detailed history. HEENT: Head is normocephalic. The patient is quite frail. Pupils are equal and reactive. Chronic conjunctival pallor. Mucous membranes are dry. Posterior pharynx is clear of exudate. NECK: Supple. CHEST: With diminished breath sounds, but clear to auscultation without wheezing or crackles. CARDIOVASCULAR: Heart sounds S1 and S2. No added sounds or murmurs. ABDOMEN: Soft, nontender, nondistended. The patient does have blister rash noted in the right lower extremities but no lower extremity edema. NEUROLOGIC: She is lethargic, seems oriented to place and person without evidence of gross focal deficits. SKIN: As above. LABORATORY VALUES: Potassium was 5.5, creatinine is 5, BUN is 40. Lactic acid is normal. LFTs are normal. Troponins are negative. CBC: Leukopenia of 4.5, hemoglobin is 9.7, platelets is low at 123; however this is chronic for the patient and has been worked up in the past and was thought to be secondary to uremia. IMAGING STUDIES: CT of the brain: Chronic partially calcified nodule within the right cerebellum. This was also noted on CT done 07/2018 and at that time was read as stable. Chest x-ray: Cardiomegaly without CHF or pneumonia. ASSESSMENT: A 33-year-old female who was recently diagnosed with shingles yesterday who presented to the emergency room and was sent from dialysis unit because of severely elevated blood pressure. She also complains of nausea, vomiting and 1 episode of diarrhea. She had episode of agitation in the ER that required sedation and is currently managed as follows: 1. Altered mentation. 2. Hypertensive encephalopathy, likely causing #1. 3. Abdominal pain, nausea and vomiting which could be secondary to the above, rule out occult causes. 4. End-stage renal disease on hemodialysis, status post missed dialysis today. 5. Chronic lupus. 6. Shingles. 7. Chronic debility. 8. Chronic thrombocytopenia secondary to uremia. 9. Concern for possible benzodiazepine and Benadryl dependence. PLAN: The first thing we will do is try and control her blood pressure, so we will continue the Cardene drip and order for immediate hemodialysis, we will also try to resume her home medications. For shingles, continue on valacyclovir and institute precautions. We will send a urinalysis to rule out an occult urinary tract infection contributing to her nausea and vomiting. We will also send blood cultures to ensure there is no occult infection going on. We will let her sleep for now and reassess once the effect of Ativan has worn off to see what her mentation is. In the interim, we will continue all supportive care. Further intervention will depend on her clinical course and how she does once more alert. I discussed this plan of care with the patient's mother and father and I have answered their questions. I have also spoken with nursing staff and nephrology consultation. Further interventions will depend on her clinical course. Dictated By: FARHAD LEZAAM MD, BA/MART Conf#: [id number] DID#: [id number] AUDRA
[2018-11-16] MEDS: HEPARIN 1000 UNITS/ML 10 ML INJ CATHETER SCH (17:43)
--- NOTE | 2018-11-16 18:45 | QN ---
Documentation Comment As physician audio visual collections coordinator, came to evaluate. With limited information it is di fficult to ascertain the entire situation however from what I know patient was admitted for altered mental status, had finished dialysis for her end-stage renal disease and started twitching. Physical exam is pertinent for patient having uncontrolled twitching movements with her left arm slightly raised, with no apparent comprehension or purposeful movement. Patient continues to twitch, when attempting to assess pupillary reflex, patient spontaneously closes her eyes and turns away, uncertain if this is purposeful movement versus true seizures. At this time highest on the differential is acute onset seizure, CT previously done earlier today does not show hemorrhage and does show a calcified nodule, however that is stable from the previous CT done approximately 1 month prior. Differential includes most likely seizure but also cannot completely rule out other neurological issues such as CVA at this time. We will treat accordingly for seizure with Ativan and obtain a stat CT head to rule out other acute neurologic pathology. We will continue to monitor patient and signed out to night physician. FRANCINE HALEY Nov 16, 2018 18:45
--- NOTE | 2018-11-16 18:45 | NUR ---
Noted patient with uncontrolled twitching movements on her left arm, called Dr Hsieh to notify. Dr Herbert came to assess the patient, Ativan 2 mg given IV and Stat CT head was ordered. Patient's mom at the bedside updated condition.
[2018-11-16] MEDS: LORAZEPAM 4 MG/ML VIAL IV PRN (18:49)
--- NOTE | 2018-11-16 19:30 | NUR ---
EOSS Throughout shift obtunded, after HD 1 episode of seizures observed, Ativan given 2 mg/ IVP. Patient positive for Hep B antigen, Dr Hsieh was notified. Continues on Cardene drip at 5mg/hr. Will continue plan of care.
[2018-11-16] MEDS: LACTOBACILLUS RHAMNOSUS CAP PO SCH (21:00)
[2018-11-17] VITALS (40 sets, daily range): BP systolic 114–155; BP diastolic 72–107; PULSE 0–133; RESP 11–39
[2018-11-17] MEDS: niCARdipine-NS 0.1MG/ML DRIP 200 ML IV SCH ×3 (02:12→09:15)
[2018-11-17] MEDS ORDERED: DIPHENHYDRAMINE 50 MG INJ ONE (03:11)
[2018-11-17] MEDS: DIPHENHYDRAMINE 50 MG INJ IV PRN (04:06)
[2018-11-17] MEDS: MYCOPHENOLATE 250 MG CAP PO SCH ×2 (08:55→21:05)
[2018-11-17] MEDS: predniSONE 5 MG TAB PO SCH (08:56)
[2018-11-17] MEDS: LACTOBACILLUS RHAMNOSUS CAP PO SCH ×2 (08:56→21:03)
[2018-11-17] MEDS: ASPIRIN (EC) 81 MG TAB PO SCH (08:56)
[2018-11-17] MEDS: LOSARTAN 50 MG TAB PO SCH ×2 (08:56→21:04)
[2018-11-17] MEDS: NIFEdipine (XL) 60 MG TAB PO SCH ×2 (08:57→21:04)
[2018-11-17] MEDS: SERTRALINE 50 MG TAB PO SCH (08:57)
[2018-11-17] MEDS ORDERED: VALACYCLOVIR 500 MG TAB PO SCH (09:00)
[2018-11-17] MEDS: HYDROXYCHLOROQUINE 200 MG TAB PO SCH (09:00)
[2018-11-17] MEDS ORDERED: SOD CHLORIDE 0.9% 100 ML ONE (09:23)
[2018-11-17] MEDS ORDERED: IODIXANOL LOCM 100 ML BTL ONE (09:23)
--- NOTE | 2018-11-17 10:00 | NUR ---
Procedure Ordered: CTA CHEST ANGIOGRAM Reason for Exam Today: TACHYCARDIA R/O PE Previous Exams: Allergies: ADHESIVE TAPE, HYDROCODONE Current Medications Taken: Glucophage ( ) Metformin ( ) Previous reaction to contrast media: Yes ( ) No ( ) : Yes ( ) No ( X) Asthma: Yes ( ) No ( X) Diabetes: Yes ( ) No (X ) Myeloma: Yes ( ) No ( X) Heart Disease: Yes (X ) No ( ) Cardiac Disease: Yes ( ) No ( X) Kidney Disease: Yes ( ) No (X ) Vascular Disease: Yes ( ) No (X ) Patient Teaching done: Yes ( ) No ( ) Business Banker Used: Yes ( ) No ( ) Name of Business Banker: Language Used: As part of the test requested by your doctor, contrast media may be injected into your vein while the x-rays are being taken. Occasionally, reactions from IV contrast may occur. The physician and staff of this hospital are trained to treat these reactions. Select the type of Contrast that will be given to patient: Isovue 300 ( ) Isovue 370 ( ) Visipaque ( X) Cystografin ( ) Gastrographin ( ) Redi-cat ( ) Volumen ( ) Amount of contrast to be given: [id number]: 75CC IV IV ( ) PO ( ) Date given: 11.17.18 Lab Values: BUN: 19 Creatinine: 3.85 DIALYSIS TOMORROW PER RN Reason why contrast cannot be given: Location of patient pre-procedure: [facility] Location of patient post procedure: [facility]A
--- NOTE | 2018-11-17 12:02 | CONS ---
Date/Time of Note Date/Time of Note DATE: 11/17/18 TIME: 12:02 Assessment/Plan Assessment/Plan Assessment/Plan 1. Altered mental status, rule out CVA vs possible acute onset seizures 2. Hypertensive emergency 3. ESRD on HD TTS schedule, missed HD today 4. H/o HTN 5. H/o HL 6. H/o Lupus 7. H/o Recent admission at [facility] for acute respiratory failure requirine intubation and ventilator care Plan; pt remains confused, behaving strange, s/p Hd yesterday 2.5 L removed, Remained in ICU HD ordered for tomororw then we will keep pt on TTS schedule. due to behaviour change, consider ID consult and Possible LP to send it for HSV pt has been recently diagnosed with shingles and has been immunosuppressed due to Lupus and cellcept will follow up Result Diagram: 11/17/18 0506 11/17/18 0506 Results 24hrs Laboratory Tests Test 11/17/18 05:06 White Blood Count 4.5 L Red Blood Count 2.98 L Hemoglobin 9.2 L Hematocrit 29.7 L Mean Corpuscular Volume 99.7 Mean Corpuscular Hemoglobin 30.9 Mean Corpuscular Hemoglobin Concent 31.0 L Red Cell Distribution Width 17.8 H Platelet Count 144 Mean Platelet Volume 11.0 H Immature Granulocytes % 0.400 Neutrophils % 55.3 Lymphocytes % 31.1 Monocytes % 12.3 H Eosinophils % 0.2 Basophils % 0.7 Nucleated Red Blood Cells % 0.0 Immature Granulocytes # 0.020 Neutrophils # 2.5 Lymphocytes # 1.4 Monocytes # 0.6 Eosinophils # 0.0 Basophils # 0.0 Nucleated Red Blood Cells # 0.0 Sodium Level 137 Potassium Level 4.6 Chloride Level 99 Carbon Dioxide Level 28 Anion Gap 10 # Blood Urea Nitrogen 19 # Creatinine 3.85 #H Est Glomerular Filtrat Rate mL/min 13 L Glucose Level 79 Calcium Level 8.8 Phosphorus Level 4.7 Magnesium Level 1.9 Consultation Date/Type/Reason Admit Date/Time Nov 16, 2018 at 08:00 Initial Consult Date 11/16/18 Type of Consult NEPHROLOGY Requesting Provider: FARHAD LEZAMA 24 HR Interval Summary Free Text/Dictation pt remains confused, behaving strange, s/p Hd yesterday 2.5 L removed, Remained in ICU Exam/Review of Systems Vital Signs Vitals Vital Signs Date Temp Pulse Resp B/P (MAP) Pulse Ox O2 O2 Flow FiO2 Time Delivery Rate 11/17/18 119 08:00 11/17/18 99.6 22 142/86 100 Room Air 08:00 (104) 11/17/18 21 06:09 11/17/18 2.0 04:00 Intake and Output 11/16/18 11/16/18 11/17/18 1515:00 23:00 07:00 IntakeIntake Total 0 ml 420 ml 420 ml OutputOutput Total 0 ml 2900 ml 0 ml BalanceBalance 0 ml -2480 ml 420 ml Exam Constitutional: confused, disoriented Psych: confusion Respiratory: congested cough, crackles/rales, diminished breath sounds Cardiovascular: regular rate and rhythm, nl pulses Gastrointestinal: soft Musculoskeletal: muscle weakness, swelling (1-2+ pitting edema ) Extremities: normal pulses Neurological: confused, lethargic, disoriented, behaving strange from her baseline Medications Medications Current Medications Albumin Human 100 ml @ 100 mls/hr WITH DIALYSIS PRN IV SBP less than 90 mm Hg ; Start 11/16/18 at 12:30 Sodium Chloride (NS) -To prime the dialy... DIRECTED FOR HD PRN IV SBP less than 90 mm Hg ; Start 11/16/18 at 12:30 Hydralazine HCl (Apresoline) 20 mg Q4H PRN IV SBP more than 150 mm hg ; Start 11/16/18 at 12:30 Acetaminophen (Tylenol Tab) 650 mg Q6H PRN PO PAIN LEVEL 1-3 OR FEVER; Start 11/16/18 at 13:30 Aspirin (Halfprin) 81 mg DAILY PO Last administered on 11/17/18at 08:56; Admin Dose 81 MG; Start 11/16/18 at 13:30 Carvedilol (Coreg) 25 mg Q8 PO ; Start 11/16/18 at 14:00 Clonidine (Catapres) 0.1 mg BID PO Last administered on 11/17/18at 08:56; Admin Dose 0.1 MG; Start 11/16/18 at 13:30 Hydroxychloroquine Sulfate (Plaquenil) 200 mg DAILY PO ; Start 11/16/18 at 14:30 Lactobacillus Acidophilus/ Rhamnosus (Culturelle) 1 cap BID PO Last administered on 11/17/18 08:56; Admin Dose 1 CAP; Start 11/16/18 at 21:00 Losartan Potassium (Cozaar) 50 mg BID PO Last administered on 11/17/18 08:56; Admin Dose 50 MG; Start 11/16/18 at 13:30 Mycophenolate Mofetil (Cellcept) 1,000 mg BID PO Last administered on 11/17/18 08:55; Admin Dose 1,000 MG; Start 11/16/18 at 14:30 Nifedipine (Procardia Xl) 60 mg BID PO Last administered on 11/17/18 08:57; Admin Dose 60 MG; Start 11/16/18 at 14:30 Prednisone (Prednisone) 5 mg DAILY PO Last administered on 11/17/18 08:56; Admin Dose 5 MG; Start 11/16/18 at 13:30 Sertraline HCl (Zoloft) 25 mg DAILY PO Last administered on 11/17/18 08:57; Admin Dose 25 MG; Start 11/16/18 at 13:30 Tramadol HCl (Ultram) 50 mg Q4 PRN PO severe pain; Start 11/16/18 at 13:30 Nicardipine HCl 200 ml @ 50 mls/hr TITRATE IV Last administered on 11/17/18 09:15; Admin Dose 60 MLS/HR; Start 11/16/18 at 15:00 Heparin Sodium (Porcine) (Heparin (1000 Units/ml)) 4,500 unit AFTER DIALYSIS CATHETER Last administered on 11/16/18 17:43; Admin Dose 4,500 UNIT; Start 11/16/18 at 15:30 Valacyclovir HCl (Valtrex) 500 mg DAILY PO Last administered on 11/17/18 08:56; Admin Dose 500 MG; Start 11/17/18 at 09:00 Lorazepam (Ativan) 2 mg Q10MIN PRN IV seizures Last administered on 11/16/18 1 8:49; Admin Dose 2 MG; Start 11/16/18 at 19:00 Diphenhydramine HCl (Benadryl) 25 mg Q6H PRN IV ITCHING Last administered on 11/17/18 04:06; Admin Dose 25 MG; Start 11/17/18 at 03:30 ARTURO AMADOR MD Nov 17, 2018 12:02
--- NOTE | 2018-11-17 13:41 | NUR ---
DIALYSIS ORDERS CALLED AND NOTIFIED ROLLY OF ORDERS FOR DIALYSIS FOR TOMORROW 11/18/18 AT 0700. #[id number]
--- NOTE | 2018-11-17 13:57 | CONS ---
Assessment/Plan Assessment/Plan Hospital Course A: 33 yo F with hx of lupus, on immunosuppression... who presents for evaluation of ams and "low grade" temperatures. In the ED, she had a witnessed seizure, for which neurology is consulted. The clinical picture is most ominously concerning for meningoencephalitis. An acute toxic-metabolic encephalopathy is additionally considered. Stroke is less likely. CTH is without acute intracranial pathology. P: LP for CSF eval dilcia MRI brain without contrast for further characterization EEG to evaluate for epileptiform activity Ativan IV PRN seizure > 5 min or for cluster Consider ID consult Other medical management per primary Reorient as necessary Limit sedating medications where possible Will follow clinically Result Diagram: 11/17/18 0506 11/17/18 0506 Results 24hrs Laboratory Tests Test 11/17/18 05:06 White Blood Count 4.5 L Red Blood Count 2.98 L Hemoglobin 9.2 L Hematocrit 29.7 L Mean Corpuscular Volume 99.7 Mean Corpuscular Hemoglobin 30.9 Mean Corpuscular Hemoglobin Concent 31.0 L Red Cell Distribution Width 17.8 H Platelet Count 144 Mean Platelet Volume 11.0 H Immature Granulocytes % 0.400 Neutrophils % 55.3 Lymphocytes % 31.1 Monocytes % 12.3 H Eosinophils % 0.2 Basophils % 0.7 Nucleated Red Blood Cells % 0.0 Immature Granulocytes # 0.020 Neutrophils # 2.5 Lymphocytes # 1.4 Monocytes # 0.6 Eosinophils # 0.0 Basophils # 0.0 Nucleated Red Blood Cells # 0.0 Sodium Level 137 Potassium Level 4.6 Chloride Level 99 Carbon Dioxide Level 28 Anion Gap 10 # Blood Urea Nitrogen 19 # Creatinine 3.85 #H Est Glomerular Filtrat Rate mL/min 13 L Glucose Level 79 Calcium Level 8.8 Phosphorus Level 4.7 Magnesium Level 1.9 Consultation Date/Type/Reason Admit Date/Time Nov 16, 2018 at 08:00 Type of Consult Neurology Reason for Consultation ams, seizures Requesting Provider: FARHAD LEZAMA Date/Time of Note DATE: 11/17/18 TIME: 13:57 Hx of Present Illness 33 yo F with hx of lupus, ESRD, on immunosuppression who presented to the ED with altered mental status and elevated BP. History was obtained from chart review as pt and family are currently unable to contribute. It is elsewhere noted: PRESENTING COMPLAINT: Altered mental status, elevated blood pressures, nausea, vomiting and 1 episode of diarrhea. HISTORY OF PRESENTING COMPLAINT: Cynthia is a 33-year-old female who is well known to our service from multiple hospitalizations. She has a history of lupus and end-stage renal disease on hemodialysis. Apparently, she was seen in our emergency room yesterday after she had presented with a rash which was blisters which she has had about a few days and she was diagnosed with shingles and was prescribed antiviral. She had not been picked this up yet however and she was complaining of a lot of itching to her family and she was given some Gina. Her family thinks the Gina she was given caused her to have a lot of nausea, vomiting and she did have one episode of diarrheal stools. She went to the hemodialysis center today and there further blood pressure was severely elevated at 200. Based on that, they did not do dialysis and sent her to the emergency room. In the ER, she became quite agitated, is pulling at lines and so she was given some Ativan to calm her down and at this time, she is quite altered and lethargic. She is requiring Cardene drip to keep her blood pressure controlled, so she is being admitted to the intensive care unit while we institute hemodialysis. unable to obtain d/t pt's ams Exam/Review of Systems Vital Signs Vitals Vital Signs Date Temp Pulse Resp B/P (MAP) Pulse Ox O2 O2 Flow FiO2 Time Delivery Rate 11/17/18 115 17 138/83 97 13:00 (101) 11/17/18 99.6 Room Air 12:00 11/17/18 21 06:09 11/17/18 2.0 04:00 Intake and Output 11/16/18 11/16/18 11/17/18 1414:59 22:59 06:59 IntakeIntake Total 0 ml 360 ml 480 ml OutputOutput Total 0 ml 2900 ml 0 ml BalanceBalance 0 ml -2540 ml 480 ml Exam PE: Gen Appearance: No Apparent Distress HEENT: Normocephalic; rash on BL cheeks Cardiovascular: Regular rate Abdomen: Soft Extremities: Dry NE: The patient was awake though very confused and disoriented. Speaking nonsensically. Intermittently follows simple appendicular commands. Cranial nerve examination was limited by mental status. Pupils were equal and reactive to light. There was no afferent pupillary defect. Funduscopic examination was limited. Face was grossly symmetric, w/ present corneal and cough reflexes. Tone was normal. Muscle bulk was normal. I did not see fasciculations. The patient was moderately weak in the UE, symmetrically; very weak in the LE and symmetric Coordination and gait testing was limited by mental status. Arm and leg reflexes were within normal limits and symmetric. Walsh's sign was absent. Plantar responses were flexor. Medications Medications Current Medications Albumin Human 100 ml @ 100 mls/hr WITH DIALYSIS PRN IV SBP less than 90 mm Hg ; Start 11/16/18 at 12:30 Sodium Chloride (NS) -To prime the dialy... DIRECTED FOR HD PRN IV SBP less than 90 mm Hg ; Start 11/16/18 at 12:30 Hydralazine HCl (Apresoline) 20 mg Q4H PRN IV SBP more than 150 mm hg ; Start 11/16/18 at 12:30 Acetaminophen (Tylenol Tab) 650 mg Q6H PRN PO PAIN LEVEL 1-3 OR FEVER; Start 11/16/18 at 13:30 Aspirin (Halfprin) 81 mg DAILY PO Last administered on 11/17/18at 08:56; Admin Dose 81 MG; Start 11/16/18 at 13:30 Carvedilol (Coreg) 25 mg Q8 PO ; Start 11/16/18 at 14:00 Clonidine (Catapres) 0.1 mg BID PO Last administered on 11/17/18at 08:56; Admin Dose 0.1 MG; Start 11/16/18 at 13:30 Hydroxychloroquine Sulfate (Plaquenil) 200 mg DAILY PO ; Start 11/16/18 at 14:30 Lactobacillus Acidophilus/ Rhamnosus (Culturelle) 1 cap BID PO Last administered on 11/17/18 08:56; Admin Dose 1 CAP; Start 11/16/18 at 21:00 Losartan Potassium (Cozaar) 50 mg BID PO Last administered on 11/17/18 08:56; Admin Dose 50 MG; Start 11/16/18 at 13:30 Mycophenolate Mofetil (Cellcept) 1,000 mg BID PO Last administered on 11/17/18at 08:55; Admin Dose 1,000 MG; Start 11/16/18 at 14:30 Nifedipine (Procardia Xl) 60 mg BID PO Last administered on 11/17/18 08:57; Admin Dose 60 MG; Start 11/16/18 at 14:30 Prednisone (Prednisone) 5 mg DAILY PO Last administered on 11/17/18 08:56; Admin Dose 5 MG; Start 11/16/18 at 13:30 Sertraline HCl (Zoloft) 25 mg DAILY PO Last administered on 11/17/18 08:57; Admin Dose 25 MG; Start 11/16/18 at 13:30 Tramadol HCl (Ultram) 50 mg Q4 PRN PO severe pain Last administered on 11/17/18 12:07; Admin Dose 50 MG; Start 11/16/18 at 13:30 Nicardipine HCl 200 ml @ 50 mls/hr TITRATE IV Last administered on 11/17/18 09:15; Admin Dose 60 MLS/HR; Start 11/16/18 at 15:00 Heparin Sodium (Porcine) (Heparin (1000 Units/ml)) 4,500 unit AFTER DIALYSIS CATHETER Last administered on 11/16/18 17:43; Admin Dose 4,500 UNIT; Start 11/16/18 at 15:30 Valacyclovir HCl (Valtrex) 500 mg DAILY PO Last administered on 11/17/18 08:56; Admin Dose 500 MG; Start 11/17/18 at 09:00 Lorazepam (Ativan) 2 mg Q10MIN PRN IV seizures Last administered on 11/16/18 18:49; Admin Dose 2 MG; Start 11/16/18 at 19:00 Diphenhydramine HCl (Benadryl) 25 mg Q6H PRN IV ITCHING Last administered on 11/17/18 04:06; Admin Dose 25 MG; Start 11/17/18 at 03:30 Past Medical History reviewed Medical History: high cholesterol, hypertension, other (ESRD on HD , H/o Seizure disorder , H/o respiratory failure requiring Intuabtion and Ventilator care last time ) Medications Current Medications Albumin Human 100 ml @ 100 mls/hr WITH DIALYSIS PRN IV SBP less than 90 mm Hg ; Start 11/16/18 at 12:30 Sodium Chloride (NS) -To prime the dialy... DIRECTED FOR HD PRN IV SBP less than 90 mm Hg ; Start 11/16/18 at 12:30 Hydralazine HCl (Apresoline) 20 mg Q4H PRN IV SBP more than 150 mm hg ; Start 11/16/18 at 12:30 Acetaminophen (Tylenol Tab) 650 mg Q6H PRN PO PAIN LEVEL 1-3 OR FEVER; Start at 13:30 Aspirin (Halfprin) 81 mg DAILY PO Last administered on 11/17/18 08:56; Admin Dose 81 MG; Start 11/16/18 at 13:30 Carvedilol (Coreg) 25 mg Q8 PO ; Start 11/16/18 at 14:00 Clonidine (Catapres) 0.1 mg BID PO Last administered on 11/17/18 08:56; Admin Dose 0.1 MG; Start 11/16/18 at 13:30 Hydroxychloroquine Sulfate (Plaquenil) 200 mg DAILY PO ; Start 11/16/18 at 14:30 Lactobacillus Acidophilus/ Rhamnosus (Culturelle) 1 cap BID PO Last administered on 11/17/18 08:56; Admin Dose 1 CAP; Start 11/16/18 at 21:00 Losartan Potassium (Cozaar) 50 mg BID PO Last administered on 11/17/18 08:56; Admin Dose 50 MG; Start 11/16/18 at 13:30 Mycophenolate Mofetil (Cellcept) 1,000 mg BID PO Last administered on 11/17/18 08:55; Admin Dose 1,000 MG; Start 11/16/18 at 14:30 Nifedipine (Procardia Xl) 60 mg BID PO Last administered on 11/17/18 08:57; Admin Dose 60 MG; Start 11/16/18 at 14:30 Prednisone (Prednisone) 5 mg DAILY PO Last administered on 11/17/18 08:56; Admin Dose 5 MG; Start 11/16/18 at 13:30 Sertraline HCl (Zoloft) 25 mg DAILY PO Last administered on 11/17/18 08:57; Admin Dose 25 MG; Start 11/16/18 at 13:30 Tramadol HCl (Ultram) 50 mg Q4 PRN PO severe pain Last administered on 11/17/18 12:07; Admin Dose 50 MG; Start 11/16/18 at 13:30 Nicardipine HCl 200 ml @ 50 mls/hr TITRATE IV Last administered on 11/17/18 09:15; Admin Dose 60 MLS/HR; Start 11/16/18 at 15:00 Heparin Sodium (Porcine) (Heparin (1000 Units/ml)) 4,500 unit AFTER DIALYSIS CATHETER Last administered on 11/16/18at 17:43; Admin Dose 4,500 UNIT; Start 11/16/18 at 15:30 Valacyclovir HCl (Valtrex) 500 mg DAILY PO Last administered on 11/17/18at 08:56; Admin Dose 500 MG; Start 11/17/18 at 09:00 Lorazepam (Ativan) 2 mg Q10MIN PRN IV seizures Last administered on 11/16/18at 18:49; Admin Dose 2 MG; Start 11/16/18 at 19:00 Diphenhydramine HCl (Benadryl) 25 mg Q6H PRN IV ITCHING Last administered on 11/17/18at 04:06; Admin Dose 25 MG; Start 11/17/18 at 03:30 Allergies: Coded Allergies: adhesive tape (Verified Allergy, Unknown, 10/26/18) hydrocodone (Unverified Allergy, Unknown, paralysis, 10/13/18) Past Surgical History reviewed Past Surgical Hx: other (Permacath for HD access ) Social History reviewed Alcohol Use: none Smoking Status: Never smoker Drug Use: none ELIANA WHITLOCK NP Nov 17, 2018 13:57 MARIA D COHN Nov 18, 2018 07:50
--- NOTE | 2018-11-17 15:49 | NUR ---
SS NOTE: READMISSION PT ADMITTED FROM HOME DUE TO HTN URGENCY. MET WITH PT AND HER MOTHER, SVEN , AT BEDSIDE. PT CONFUSED AND AGITATED. MOTHER TURKMEN SPEAKING ONLY. 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 PT'S MOTHER VERY UPSET AND TEARFUL. REQUESTED FOR A CARE AIDE. STATED THAT PT HAS BEEN TALKING ABOUT PEOPLE WHO HAVE . MOTHER REPORTED THAT PT HAS BEEN COMPLIANT AT HOME WITH HER DOCTOR'S APPOINTMENTS AND HER MEDICATIONS. STATED THAT PT'S FATHER HAS STOPPED WORKING TO TAKE HER TO ALL HER APPOINTMENTS. STATED THAT PT WAS IN [facility] ED [facility] THIS WEEK BUT SHE WAS DISCHARGED HOME. SHE WENT TO HD AND FROM THERE SHE WAS BROUGHT TO ED AGAIN BECAUSE OF HER BLOOD PRESSURE. PT'S MOTHER STATED THAT PT WAS NOT ABLE TO WALK OR MOVE AT THAT TIME. PT'S MOTHER VERY WORRIED ABOUT PT'S CONDITION. ASKED WHAT IS HAPPENING AND REQUESTED FOR THE DOCTORS TO TELL HER THE TRUTH. SW PROVIDED EMOTIONAL SUPPORT. EXPLAINED TO HER THAT ACCORDING TO THE NURSE PT HAS A ORDERS FOR TEST TO SEE WHAT IS CAUSING HER CONFUSION AND AGITATION. SW INFORMED THE MOTHER THAT MORE QUESTIONS WILL BE ANSWERED AFTER THE TEST RESULTS. EXPLAINED THAT ONCE THE RESULTS ARE READY THEN MD WILL MEET WITH HER TO DISCUSS THE PLAN OF CARE. PT'S MOTHER VERBALIZED UNDERSTANDING. TRISH CALLED [facility] AND REQUESTED FOR A TURKMEN SPEAKING POSTAL WORKER. SW WILL CONTINUE TO REMAIN AVAILABLE NEEDED.
--- NOTE | 2018-11-17 16:12 | NUR ---
[employer]UC[employer] PRINTED OFF INFORMATION ABOUT LUMBAR PUNCTURE FOR PTS MOTHER IN [place]. ( HAD ALREADY SPOKEN TO HER).
[2018-11-17] MEDS ORDERED: LIDOCAINE 1% (MPF) 5 ML VIAL ONE (16:37)
--- NOTE | 2018-11-17 18:12 | PN ---
Date/Time of Note Date/Time of Note DATE: 11/17/18 TIME: 17:54 Assessment/Plan VTE Prophylaxis Risk score (from Ns)>0 risk: 4 SCD applied (from Ns): Yes Pharmacological prophylaxis: heparin Lines/Catheters IV C[facility]ter Type [facility]from [facility] Permacath Urinary Cath still in place: No Assessment/Plan Result Diagram: 11/17/18 0506 11/17/18 0506 Results 24hrs Laboratory Tests Test 11/17/18 05:06 11/17/18 15:53 White Blood Count 4.5 L Red Blood Count 2.98 L Hemoglobin 9.2 L Hematocrit 29.7 L Mean Corpuscular Volume 99.7 Mean Corpuscular Hemoglobin 30.9 Mean Corpuscular Hemoglobin Concent 31.0 L Red Cell Distribution Width 17.8 H Platelet Count 144 Mean Platelet Volume 11.0 H Immature Granulocytes % 0.400 Neutrophils % 55.3 Lymphocytes % 31.1 Monocytes % 12.3 H Eosinophils % 0.2 Basophils % 0.7 Nucleated Red Blood Cells % 0.0 Immature Granulocytes # 0.020 Neutrophils # 2.5 Lymphocytes # 1.4 Monocytes # 0.6 Eosinophils # 0.0 Basophils # 0.0 Nucleated Red Blood Cells # 0.0 Sodium Level 137 Potassium Level 4.6 Chloride Level 99 Carbon Dioxide Level 28 Anion Gap 10 # Blood Urea Nitrogen 19 # Creatinine 3.85 #H Est Glomerular Filtrat Rate mL/min 13 L Glucose Level 79 Calcium Level 8.8 Phosphorus Level 4.7 Magnesium Level 1.9 Prothrombin Time 13.0 # Prothrombin Time Ratio 1.0 INR International Normalized Ratio 0.97 Activated Partial Thromboplast Time 35.3 H Subjective 24 Hr Interval Summary Free Text/Dictation S: confused O: gen: erratic behaviour, alert, no distress, oriented ?, Head: atraumatic, normocephalic, de facies, frail, friable skin Neck: non-tender, supple Respiratory: clear to auscultation, diminished Cardiovascular: regular rate and rhythm Gastrointestinal: S/ NT / ND / +BS Extremities: no edema, good radial pulses, twitching skin: rash assessment and plan: 33 yo F with chronic lupus and ESRD on HD who was diagnosed with shingles 2 days ago who had returned with itching, nausea and vomiting and severely elevated blood pressures and abnormal behaviour currently managed in ICU as follows: 1. Acute encephalopathy with ?twitching versus seizures -differentials include Hypertensive encephalopathy vs HSV encephalitis vs acute CVA -Nephro recommends LP, Neuro following, f/u recommendations -ID consult 2. Hypertensive emergency -continue Nicardipine drip, wean as tolerated. -home meds have been resumed but patient spitting out meds per nurses 3. Profuse diarrhea -C-diff assay, rectal tube 4. ESRD: -continue routine HD 5. Tachycardia: -?sepsis, will get CT to r/o PE, repeat 2D echo as patient has hx of pericardial effusion 6. Shingles on Valtrex therapy 7. chronic anemia 2/2 CKD 8. Chronic thrombocytopenia 2/2 uremia: monitor 9. H/o depression and anxiety : on Zoloft 10. hx of lupus -continue Plaquenil, mycophenolate and prednisone dispo: imaging studies as ordered above ID consult wean off nicardipine drip continue ICU monitoring and mgt CC time 90mins. Exam/Review of Systems Vital Signs Vitals Vital Signs Date Temp Pulse Resp B/P (MAP) Pulse Ox O2 O2 Flow FiO2 Time Delivery Rate 11/17/18 21 17:40 11/17/18 108 16:00 11/17/18 99.4 20 139/94 98 Room Air 16:00 (109) 11/17/18 2.0 04:00 Intake and Output 11/16/18 11/16/18 11/17/18 1414:59 22:59 06:59 IntakeIntake Total 0 ml 360 ml 480 ml OutputOutput Total 0 ml 2900 ml 0 ml BalanceBalance 0 ml -2540 ml 480 ml Medications Medications Current Medications Albumin Human 100 ml @ 100 mls/hr WITH DIALYSIS PRN IV SBP less than 90 mm Hg ; Start 11/16/18 at 12:30 Sodium Chloride (NS) -To prime the dialy... DIRECTED FOR HD PRN IV SBP less than 90 mm Hg ; Start 11/16/18 at 12:30 Hydralazine HCl (Apresoline) 20 mg Q4H PRN IV SBP more than 150 mm hg ; Start 11/16/18 at 12:30 Acetaminophen (Tylenol Tab) 650 mg Q6H PRN PO PAIN LEVEL 1-3 OR FEVER; Start 11/16/18 at 13:30 Aspirin (Halfprin) 81 mg DAILY PO Last administered on 11/17/18 08:56; Admin Dose 81 MG; Start 11/16/18 at 13:30 Carvedilol (Coreg) 25 mg Q8 PO ; Start 11/16/18 at 14:00 Clonidine (Catapres) 0.1 mg BID PO Last administered on 11/17/18 08:56; Admin Dose 0.1 MG; Start 11/16/18 at 13:30 Hydroxychloroquine Sulfate (Plaquenil) 200 mg DAILY PO ; Start 11/16/18 at 14:30 Lactobacillus Acidophilus/ Rhamnosus (Culturelle) 1 cap BID PO Last administered on 11/17/18 08:56; Admin Dose 1 CAP; Start 11/16/18 at 21:00 Losartan Potassium (Cozaar) 50 mg BID PO Last administered on 11/17/18 08:56; Admin Dose 50 MG; Start 11/16/18 at 13:30 Mycophenolate Mofetil (Cellcept) 1,000 mg BID PO Last administered on 11/17/18 08:55; Admin Dose 1,000 MG; Start 11/16/18 at 14:30 Nifedipine (Procardia Xl) 60 mg BID PO Last administered on 11/17/18 08:57; Admin Dose 60 MG; Start 11/16/18 at 14:30 Prednisone (Prednisone) 5 mg DAILY PO Last administered on 11/17/18 08:56; Admin Dose 5 MG; Start 11/16/18 at 13:30 Sertraline HCl (Zoloft) 25 mg DAILY PO Last administered on 11/17/18 08:57; Admin Dose 25 MG; Start 11/16/18 at 13:30 Tramadol HCl (Ultram) 50 mg Q4 PRN PO severe pain Last administered on 11/17/18 12:07; Admin Dose 50 MG; Start 11/16/18 at 13:30 Nicardipine HCl 200 ml @ 50 mls/hr TITRATE IV Last administered on 11/17/18 09:15; Admin Dose 60 MLS/HR; Start 11/16/18 at 15:00 Heparin Sodium (Porcine) (Heparin (1000 Units/ml)) 4,500 unit AFTER DIALYSIS CATHETER Last administered on 11/16/18 17:43; Admin Dose 4,500 UNIT; Start 11/16/18 at 15:30 Valacyclovir HCl (Valtrex) 500 mg DAILY PO Last administered on 11/17/18 08:56; Admin Dose 500 MG; Start 11/17/18 at 09:00 Lorazepam (Ativan) 2 mg Q10MIN PRN IV seizures Last administered on 11/16/18at 18:49; Admin Dose 2 MG; Start 11/16/18 at 19:00 Diphenhydramine HCl (Benadryl) 25 mg Q6H PRN IV ITCHING Last administered on 11/17/18at 04:06; Admin Dose 25 MG; Start 11/17/18 at 03:30 FARHAD LEZAMA Nov 17, 2018 18:07
--- NOTE | 2018-11-17 18:59 | NUR ---
EOSS PT HAD ORDERED CHEST CT TO RULE OUT PE. CHEST CT NEGATIVE. PT VERY ALTERED, TACHYCARDIA NOTED. CARDIOLOGY CONSULTED FOR TACHYCARDIA. ATTEMPTED TO GIVE PT MEDS WITH WATER BUT SOON SHE SWALLOWED THEM ALL SHE COUGHED AND VOMITED THEM UP. MD AWARE ABOUT ORAL INTAKE AND MENTAL STATUS. NEURO CONSULTED, LP OBTAINED IN RADIOLOGY. WAITING TO GO TO BRAIN MRI. EEG, ECHO, AND C DIFF SAMPLE ORDERED WELL. NICARDIPINE GTT WEANED OFF. FAMILY AT BEDSIDE, VERY UPSET, UPDATED BY OUTSIDE SALES ACCOUNT EXECUTIVE WITH [employer]. ORDERS RECEIVED FOR PT TO GET DIALYSIS TOMORROW MORNING. CALLED [facility] AND THEY ARE AWARE. AWAITING LAB AND PROCEDURE RESULTS TO EXPLAIN NEURO STATUS.
--- NOTE | 2018-11-17 19:16 | RADRPT ---
Echocardiogram Report ADDENDUM Patient Name: HUMERA THOMAS Gender: Female Date: 1985 Study Date: 17-Nov-2018 Pensionholder Information Clerk: Helena Huber [facility] Location: [id number] Ref. Physician: FARHAD LEZAMA Quality: Good Procedures: Transthoracic echocardiogram examination. Indications: Pericardial Effusion. Findings Left Ventricle: Normal left ventricular cavity size, wall thickness and systolic function. The left ventricular ejection fraction is visually estimated at 55 %. Pericardium: Small pericardial effusion. Left pleural effusion seen. IVC: Normal inferior vena cava appearance and respiratory collapse. Conclusions Normal left ventricular cavity size, wall thickness and systolic function. The left ventricular ejection fraction is visually estimated at 55 %. Small pericardial effusion. Left pleural effusion seen. Electronically Signed By: Kevin Wall 17-Nov-2018 19:31:40 -0800 [ADDENDUM] Patient Name: HUMERA THOMAS Study Date: 17-Nov-2018 [id number]
--- NOTE | 2018-11-17 20:02 | CONS ---
Date/Time of Note Date/Time of Note DATE: 11/17/18 TIME: 19:53 Assessment/Plan Assessment/Plan Hospital Course 1. Hypertensive urgency 2. Encephalopathy 3. Renal failure on dialysis 4. History of lupus 5. Pericardial effusion: Appears to be small and stable at this point 6. Anemia 7. Shingles Recommendations Antibiotic management and antiviral management as per internal medicine Neuro workup is pending Beta-catracho orally to be given as tolerated. However patient has had nausea vomiting and also confusion which makes it very difficult. Cardene drip to be given if patient is been unable to tolerate p.o. medication Hemodialysis as per renal Thank you for his referral. We will continue to follow along with you, Dr. Cowan will be covering me on the weekend SERGO MUNOZ MD [facility] Result Diagram: 11/17/18 0506 11/17/18 0506 Results 24hrs Laboratory Tests Test 11/17/18 05:06 11/17/18 15:53 11/17/18 16:58 White Blood Count 4.5 L Red Blood Count 2.98 L Hemoglobin 9.2 L Hematocrit 29.7 L Mean Corpuscular Volume 99.7 Mean Corpuscular Hemoglobin 30.9 Mean Corpuscular Hemoglobin Concent 31.0 L Red Cell Distribution Width 17.8 H Platelet Count 144 Mean Platelet Volume 11.0 H Immature Granulocytes % 0.400 Neutrophils % 55.3 Lymphocytes % 31.1 Monocytes % 12.3 H Eosinophils % 0.2 Basophils % 0.7 Nucleated Red Blood Cells % 0.0 Immature Granulocytes # 0.020 Neutrophils # 2.5 Lymphocytes # 1.4 Monocytes # 0.6 Eosinophils # 0.0 Basophils # 0.0 Nucleated Red Blood Cells # 0.0 Sodium Level 137 Potassium Level 4.6 Chloride Level 99 Carbon Dioxide Level 28 Anion Gap 10 # Blood Urea Nitrogen 19 # Creatinine 3.85 #H Est Glomerular Filtrat Rate mL/min 13 L Glucose Level 79 Calcium Level 8.8 Phosphorus Level 4.7 Magnesium Level 1.9 Prothrombin Time 13.0 # Prothrombin Time Ratio 1.0 INR International Normalized Ratio 0.97 Activated Partial Thromboplast Time 35.3 H CSF Tubes Submitted 4 CSF Volume 6.5 CSF Appearance CLEAR CSF Color COLORLESS CSF WBC 6 CSF RBC 0 CSF Cell Count Tube # TUBE#1 CSF Mononuclear Cells % (Auto) 100.0 CSF Polynuclear WBCs (%) 0.0 CSF Glucose 42 L CSF Total Protein 90 H Consultation Date/Type/Reason Admit Date/Time Nov 16, 2018 at 08:00 Date of Consultation: Nov 17, 2018 Type of Consult cv Reason for Consultation HTN urgency Requesting Provider: FARHAD LEZAMA Hx of Present Illness Interventional cardiology consultation note Chief complaint: Altered mental status, elevated blood pressures, nausea, vomiting and 1 episode of diarrhea. Reason for consult: HTN pericardial effusion History of present illness: Thank you for this referral. History was obtained from discussion with the physician and staff review of the old chart patient was very well-known to me from previous admission to the hospital. This is a 33-year-old female who is well known to me from multiple hospitalizations, with multiple complicated medical problems who was brought in because of above complaints.. She has a history of lupus and end-stage renal disease on hemodialysis. Apparently, she was seen in our emergency room and diagnosed with shingles. She was started on occasions.. She had not been picked this up yet however and she was complaining of a lot of itching to her family and she was given some Gina. Her family thinks the Gina she was given caused her to have a lot of nausea, vomiting and she did have one episode of diarrheal stools. She went to the hemodialysis center and there further blood pressure was severely elevated at 200. Based on that, they did not do dialysis and sent her to the emergency room. In the ER, she became quite agitated, is pulling at lines and so she was given some Ativan to calm her down She has intermittently had nausea vomiting. Intermittently was able to tolerate p.o. medication but not all the time. Initially she had to be placed on Cardene drip and currently in the intensive care unit. PAST MEDICAL HISTORY: 1. Lupus. 2. End-stage renal disease on hemodialysis. 3. Hypertension. 4. Chronic depression. 5. History of small to moderate pericardial effusion has been stable 6. History of right upper extremity DVT and cellulitis previously anticoagulation PAST SURGICAL HISTORY: Includes dialysis access placement and a . ALLERGIES: 1. ADHESIVE TAPE. 2. HYDROCODONE. SOCIAL HISTORY: The patient resides with her parents and her family who cares for her. Denies tobacco, alcohol or illicit drug use. Review of system: Patient denies all others except for above-mentioned Past Medical History Medical History: high cholesterol, hypertension, other (ESRD on HD , H/o Seizure disorder , H/o respiratory failure requiring Intuabtion and Ventilator care last time ) Medications Current Medications Albumin Human 100 ml @ 100 mls/hr WITH DIALYSIS PRN IV SBP less than 90 mm Hg ; Start 11/16/18 at 12:30 Sodium Chloride (NS) -To prime the dialy... DIRECTED FOR HD PRN IV SBP less t dior 90 mm Hg ; Start 11/16/18 at 12:30 Hydralazine HCl (Apresoline) 20 mg Q4H PRN IV SBP more than 150 mm hg ; Start 11/16/18 at 12:30 Acetaminophen (Tylenol Tab) 650 mg Q6H PRN PO PAIN LEVEL 1-3 OR FEVER; Start 11/16/18 at 13:30 Aspirin (Halfprin) 81 mg DAILY PO Last administered on 11/17/18 08:56; Admin Dose 81 MG; Start 11/16/18 at 13:30 Carvedilol (Coreg) 25 mg Q8 PO ; Start 11/16/18 at 14:00 Clonidine (Catapres) 0.1 mg BID PO Last administered on 11/17/18 08:56; Admin Dose 0.1 MG; Start 11/16/18 at 13:30 Hydroxychloroquine Sulfate (Plaquenil) 200 mg DAILY PO ; Start 11/16/18 at 14:30 Lactobacillus Acidophilus/ Rhamnosus (Culturelle) 1 cap BID PO Last administered on 11/17/18 08:56; Admin Dose 1 CAP; Start 11/16/18 at 21:00 Losartan Potassium (Cozaar) 50 mg BID PO Last administered on 11/17/18 08:56; Admin Dose 50 MG; Start 11/16/18 at 13:30 Mycophenolate Mofetil (Cellcept) 1,000 mg BID PO Last administered on 11/17/18 08:55; Admin Dose 1,000 MG; Start 11/16/18 at 14:30 Nifedipine (Procardia Xl) 60 mg BID PO Last administered on 11/17/18 08:57; Admin Dose 60 MG; Start 11/16/18 at 14:30 Prednisone (Prednisone) 5 mg DAILY PO Last administered on 11/17/18at 08:56; Ad min Dose 5 MG; Start 11/16/18 at 13:30 Sertraline HCl (Zoloft) 25 mg DAILY PO Last administered on 11/17/18at 08:57; Admin Dose 25 MG; Start 11/16/18 at 13:30 Tramadol HCl (Ultram) 50 mg Q4 PRN PO severe pain Last administered on 11/17/18at 12:07; Admin Dose 50 MG; Start 11/16/18 at 13:30 Nicardipine HCl 200 ml @ 50 mls/hr TITRATE IV Last administered on 11/17/18at 09:15; Admin Dose 60 MLS/HR; Start 11/16/18 at 15:00 Heparin Sodium (Porcine) (Heparin (1000 Units/ml)) 4,500 unit AFTER DIALYSIS CATHETER Last administered on 11/16/18at 17:43; Admin Dose 4,500 UNIT; Start 11/16/18 at 15:30 Lorazepam (Ativan) 2 mg Q10MIN PRN IV seizures Last administered on 11/16/18at 18:49; Admin Dose 2 MG; Start 11/16/18 at 19:00 Diphenhydramine HCl (Benadryl) 25 mg Q6H PRN IV ITCHING Last administered on 11/17/18at 04:06; Admin Dose 25 MG; Start 11/17/18 at 03:30 Acyclovir 250 mg/ Dextrose 100 ml @ 100 mls/hr Q24H IVPB ; Start 11/17/18 at 20:00 Allergies: Coded Allergies: adhesive tape (Verified Allergy, Unknown, 10/26/18) hydrocodone (Unverified Allergy, Unknown, paralysis, 10/13/18) Past Surgical History Past Surgical Hx: other (Permacath for HD access ) Social History Alcohol Use: none Smoking Status: Never smoker Drug Use: none Exam/Review of Systems Vital Signs Vitals Vital Signs Date Temp Pulse Resp B/P (MAP) Pulse Ox O2 O2 Flow FiO2 Time Delivery Rate 11/17/18 99 21 19:27 11/17/18 112 18 139/103 18:00 (115) 11/17/18 99.4 Room Air 16:00 11/17/18 2.0 04:00 Intake and Output 11/16/18 11/16/18 11/17/18 1515:00 23:00 07:00 IntakeIntake Total 0 ml 420 ml 480 ml OutputOutput Total 0 ml 2900 ml 0 ml BalanceBalance 0 ml -2480 ml 480 ml Exam General: no acute distress HEENT: NC/AT. pupils are equal. round. NECK: . no stridor. CV: Tachycardic. systolic murmur; no gallop or rubs. PULM: no wheezing . Mild rhonchi. GI: SOFT, NT, ND, no rebound or guarding Extremity: trace B/L LE edema. no clubbing. neuro: awake but confused. Does not answer my question Psych: Agitated rectal: deferred : Deferred Derm: With butterfly rash on the face as well as evidence of shingles in the right inner thigh EKG done November 16, 2018 showed normal sinus rhythm. No evidence of ischemia my personal review Echocardiogram shows: Left Ventricle: Normal left ventricular cavity size, wall thickness and systolic function. The left ventricular ejection fraction is visually estimated at 55 %. Pericardium: Small pericardial effusion. Left pleural effusion seen. IVC: Normal inferior vena cava appearance and respiratory collapse. Conclusions Normal left ventricular cavity size, wall thickness and systolic function. The left ventricular ejection fraction is visually estimated at 55 %. Small pericardial effusion. Left pleural effusion seen. Electronically Signed By: Kevin Wall 17-Nov-2018 19:31:40 Medications Medications Current Medications Albumin Human 100 ml @ 100 mls/hr WITH DIALYSIS PRN IV SBP less than 90 mm Hg ; Start 11/16/18 at 12:30 Sodium Chloride (NS) -To prime the dialy... DIRECTED FOR HD PRN IV SBP less than 90 mm Hg ; Start 11/16/18 at 12:30 Hydralazine HCl (Apresoline) 20 mg Q4H PRN IV SBP more than 150 mm hg ; Start 11/16/18 at 12:30 Acetaminophen (Tylenol Tab) 650 mg Q6H PRN PO PAIN LEVEL 1-3 OR FEVER; Start 11/16/18 at 13:30 Aspirin (Halfprin) 81 mg DAILY PO Last administered on 11/17/18at 08:56; Admin Dose 81 MG; Start 11/16/18 at 13:30 Carvedilol (Coreg) 25 mg Q8 PO ; Start 11/16/18 at 14:00 Clonidine (Catapres) 0.1 mg BID PO Last administered on 11/17/18at 08:56; Admin Dose 0.1 MG; Start 11/16/18 at 13:30 Hydroxychloroquine Sulfate (Plaquenil) 200 mg DAILY PO ; Start 11/16/18 at 14:30 Lactobacillus Acidophilus/ Rhamnosus (Culturelle) 1 cap BID PO Last administered on 11/17/18 08:56; Admin Dose 1 CAP; Start 11/16/18 at 21:00 Losartan Potassium (Cozaar) 50 mg BID PO Last administered on 11/17/18 08:56; Admin Dose 50 MG; Start 11/16/18 at 13:30 Mycophenolate Mofetil (Cellcept) 1,000 mg BID PO Last administered on 11/17/18 08:55; Admin Dose 1,000 MG; Start 11/16/18 at 14:30 Nifedipine (Procardia Xl) 60 mg BID PO Last administered on 11/17/18 08:57; Admin Dose 60 MG; Start 11/16/18 at 14:30 Prednisone (Prednisone) 5 mg DAILY PO Last administered on 11/17/18 08:56; Admin Dose 5 MG; Start 11/16/18 at 13:30 Sertraline HCl (Zoloft) 25 mg DAILY PO Last administered on 11/17/18 08:57; Admin Dose 25 MG; Start 11/16/18 at 13:30 Tramadol HCl (Ultram) 50 mg Q4 PRN PO severe pain Last administered on 11/17/18 12:07; Admin Dose 50 MG; Start 11/16/18 at 13:30 Nicardipine HCl 200 ml @ 50 mls/hr TITRATE IV Last administered on 11/17/18 09:15; Admin Dose 60 MLS/HR; Start 11/16/18 at 15:00 Heparin Sodium (Porcine) (Heparin (1000 Units/ml)) 4,500 unit AFTER DIALYSIS CATHETER Last administered on 11/16/18 17:43; Admin Dose 4,500 UNIT; Start 11/16/18 at 15:30 Lorazepam (Ativan) 2 mg Q10MIN PRN IV seizures Last administered on 11/16/18 18:49; Admin Dose 2 MG; Start 11/16/18 at 19:00 Diphenhydramine HCl (Benadryl) 25 mg Q6H PRN IV ITCHING Last administered on 11/17/18 04:06; Admin Dose 25 MG; Start 11/17/18 at 03:30 Acyclovir 250 mg/ Dextrose 100 ml @ 100 mls/hr Q24H IVPB ; Start 11/17/18 at 20:00 SERGO MUNOZ MD Nov 17, 2018 20:02
[2018-11-17] MEDS: DEXTROSE 5% IVPB SCH (20:39)
[2018-11-17] MEDS: ACYCLOVIR IVPB SCH (20:39)
[2018-11-18] VITALS (34 sets, daily range): BP systolic 114–174; BP diastolic 80–111; PULSE 90–147; RESP 18–29
[2018-11-18] MEDS: LORAZEPAM 4 MG/ML VIAL IV PRN ×3 (04:13→15:28)
--- NOTE | 2018-11-18 06:48 | NUR ---
pt is confused and will randomly yell out, incomprehensible phrases mainly. at times, she does have brief responses that are appropriate to what is being asked. appears lethargic. VSS throughout night. afebrile. refused turns at times but her mother helps reposition her as well. shingles present -- isolation followed. called MD regarding possible HTN issues faced previously -- no new orders , if pt remains 160s routinely, call for PRN meds. ativan 2mg x1 given for what was explained to be a possible absence seizure. pt rested afterward and her tremors/fasiculations subsided. will continue to monitor closely
[2018-11-18] MEDS: MYCOPHENOLATE 250 MG CAP PO SCH ×2 (08:08→21:00)
[2018-11-18] MEDS: HYDROXYCHLOROQUINE 200 MG TAB PO SCH (08:08)
[2018-11-18] MEDS: ASPIRIN (EC) 81 MG TAB PO SCH (08:08)
[2018-11-18] MEDS: NIFEdipine (XL) 60 MG TAB PO SCH ×2 (08:08→21:00)
[2018-11-18] MEDS: LACTOBACILLUS RHAMNOSUS CAP PO SCH ×2 (08:08→21:00)
[2018-11-18] MEDS: LOSARTAN 50 MG TAB PO SCH ×2 (08:08→21:00)
[2018-11-18] MEDS: predniSONE 5 MG TAB PO SCH (08:08)
[2018-11-18] MEDS: SERTRALINE 50 MG TAB PO SCH (08:09)
[2018-11-18] MEDS: hydrALAzine 20 MG INJ IV PRN ×2 (08:25→22:43)
[2018-11-18] MEDS: HEPARIN 1000 UNITS/ML 10 ML INJ CATHETER SCH (08:42)
--- NOTE | 2018-11-18 08:48 | PN ---
Date/Time of Note Date/Time of Note DATE: 11/18/18 TIME: 08:44 Assessment/Plan VTE Prophylaxis Risk score (from [facility])>0 risk: 6 SCD applied (from [facility]): No SCD contraindicated: patient refusal Pharmacological prophylaxis: heparin Lines/Catheters IV Catheter Type (from [facility]): permacath Urinary Cath still in place: No Assessment/Plan Problems: (1) Altered mental status Status: Acute Comment: Patient is not able to communicate with us effectively at this time. Our neurology consults had ordered an EEG yesterday which is not yet done. We did change the request to a stat request to get this taken care of. She is s haking which is somewhat worrisome for the possibility of a seizure disorder but I am not actually fully believing this is status epilepticus. Qualifiers: Altered mental status type: delirium Qualified Codes: R41.0 - Disorientation, unspecified (2) Renal failure Status: Acute Comment: As per nephrology. 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 (4) Shingles Status: Acute Comment: Full workup is pending the patient is on IV acyclovir. (5) Hypertensive emergency without congestive heart failure Status: Acute Comment: Coming under control. Given the tachycardia IV metoprolol on a standing order basis and follow her closely. She needs to be in the intensive care unit (6) Hepatitis B surface antigen positive Status: Chronic Comment: Blood and body fluid precautions Result Diagram: 11/18/18 0511/18/18 0521 Results 24hrs Laboratory Tests Test 11/17/18 15:53 11/17/18 16:58 11/18/18 05:21 Prothrombin Time 13.0 # Prothrombin Time Ratio 1.0 INR International Normalized Ratio 0.97 Activated Partial Thromboplast Time 35.3 H CSF Tubes Submitted 4 CSF Volume 6.5 CSF Appearance CLEAR CSF Color COLORLESS CSF WBC 6 CSF RBC 0 CSF Cell Count Tube # TUBE#1 CSF Mononuclear Cells % (Auto) 100.0 CSF Polynuclear WBCs (%) 0.0 CSF Glucose 42 L CSF Total Protein 90 H White Blood Count 3.9 L Red Blood Count 2.64 L Hemoglobin 8.2 L Hematocrit 26.6 L Mean Corpuscular Volume 100.8 Mean Corpuscular Hemoglobin 31.1 Mean Corpuscular Hemoglobin Concent 30.8 L Red Cell Distribution Width 17.6 H Platelet Count 154 Mean Platelet Volume 10.6 H Immature Granulocytes % 0.300 Neutrophils % 50.7 Lymphocytes % 31.3 Monocytes % 16.2 H Eosinophils % 0.5 Basophils % 1.0 Nucleated Red Blood Cells % 0.0 Immature Granulocytes # 0.010 Neutrophils # 2.0 Lymphocytes # 1.2 Monocytes # 0.6 Eosinophils # 0.0 Basophils # 0.0 Nucleated Red Blood Cells # 0.0 Sodium Level 133 L Potassium Level 5.0 Chloride Level 95 L Carbon Dioxide Level 25 Anion Gap 13 Blood Urea Nitrogen 25 H Creatinine 5.58 H Est Glomerular Filtrat Rate mL/min 9 L Glucose Level 81 Calcium Level 8.6 Phosphorus Level 6.4 H Magnesium Level 2.0 Subjective 24 Hr Interval Summary Free Text/Dictation Patient is making sounds but is not communicating in any meaningful fashion. She is trying to get up out of the bed with her nursing staff, and family member at bedside. Subjective hx not possible: pt non-verbal Exam/Review of Systems Vital Signs Vitals Vital Signs Date Temp Pulse Resp B/P (MAP) Pulse Ox O2 O2 Flow FiO2 Time Delivery Rate 11/18/18 101 19 131/95 96 06:30 (107) 11/18/18 97.8 05:00 11/18/18 Room Air 00:00 11/17/18 21 19:27 11/17/18 2.0 04:00 Intake and Output 11/17/18 11/17/18 11/18/18 1515:00 23:00 07:00 IntakeIntake Total 400 ml 180 ml OutputOutput Total 0 ml BalanceBalance 400 ml 180 ml Exam Trying to get out of bed. Some twitching movements diffusely. Please note her EEG is not yet done Constitutional: non-verbal ENMT: other (Mucous membranes are dry and cracked) Respiratory: clear to auscultation, normal air movement Cardiovascular: other (Tachycardic) Extremities: other (Active shingles on the extremity) Medications Medications Current Medications Albumin Human 100 ml @ 100 mls/hr WITH DIALYSIS PRN IV SBP less than 90 mm Hg ; Start 11/16/18 at 12:30 Sodium Chloride (NS) -To prime the dialy... DIRECTED FOR HD PRN IV SBP less than 90 mm Hg ; Start 11/16/18 at 12:30 Hydralazine HCl (Apresoline) 20 mg Q4H PRN IV SBP more than 150 mm hg Last ad ministered on 11/18/18at 08:25; Admin Dose 20 MG; Start 11/16/18 at 12:30 Acetaminophen (Tylenol Tab) 650 mg Q6H PRN PO PAIN LEVEL 1-3 OR FEVER; Start 11/16/18 at 13:30 Aspirin (Halfprin) 81 mg DAILY PO Last administered on 11/17/18at 08:56; Admin Dose 81 MG; Start 11/16/18 at 13:30 Carvedilol (Coreg) 25 mg Q8 PO ; Start 11/16/18 at 14:00 Clonidine (Catapres) 0.1 mg BID PO Last administered on 11/17/18at 21:05; Admin Dose 0.1 MG; Start 11/16/18 at 13:30 Hydroxychloroquine Sulfate (Plaquenil) 200 mg DAILY PO ; Start 11/16/18 at 14:30 Lactobacillus Acidophilus/ Rhamnosus (Culturelle) 1 cap BID PO Last administered on 11/17/18at 21:03; Admin Dose 1 CAP; Start 11/16/18 at 21:00 Losartan Potassium (Cozaar) 50 mg BID PO Last administered on 11/17/18 21:04; Admin Dose 50 MG; Start 11/16/18 at 13:30 Mycophenolate Mofetil (Cellcept) 1,000 mg BID PO Last administered on 11/17/18 21:05; Admin Dose 1,000 MG; Start 11/16/18 at 14:30 Nifedipine (Procardia Xl) 60 mg BID PO Last administered on 11/17/18at 21:04; Admin Dose 60 MG; Start 11/16/18 at 14:30 Prednisone (Prednisone) 5 mg DAILY PO Last administered on 11/17/18at 08:56; Admin Dose 5 MG; Start 11/16/18 at 13:30 Sertraline HCl (Zoloft) 25 mg DAILY PO Last administered on 11/17/18 08:57; Admin Dose 25 MG; Start 11/16/18 at 13:30 Tramadol HCl (Ultram) 50 mg Q4 PRN PO severe pain Last administered on 11/17/18 12:07; Admin Dose 50 MG; Start 11/16/18 at 13:30 Nicardipine HCl 200 ml @ 50 mls/hr TITRATE IV Last administered on 11/17/18 09:15; Admin Dose 60 MLS/HR; Start 11/16/18 at 15:00 Heparin Sodium (Porcine) (Heparin (1000 Units/ml)) 4,500 unit AFTER DIALYSIS CATHETER Last administered on 11/18/18 08:42; Admin Dose 4,500 UNIT; Start 11/16/18 at 15:30 Lorazepam (Ativan) 2 mg Q10MIN PRN IV seizures Last administered on 11/18/18 08:38; Admin Dose 2 MG; Start 11/16/18 at 19:00 Diphenhydramine HCl (Benadryl) 25 mg Q6H PRN IV ITCHING Last administered on 11/17/18 04:06; Admin Dose 25 MG; Start 11/17/18 at 03:30 Acyclovir 250 mg/ Dextrose 100 ml @ 100 mls/hr Q24H IVPB Last administered on 11/17/18 20:39; Admin Dose 100 MLS/HR; Start 11/17/18 at 20:00 Metoprolol Tartrate (Lopressor) 5 mg Q6 IV ; Start 11/18/18 at 09:00; Status RYAN JO MD Nov 18, 2018 08:48
[2018-11-18] MEDS: METOPROLOL 5 MG INJ IV SCH ×4 (08:57→23:40)
[2018-11-18] MEDS ORDERED: CLONIDINE 0.2 MG/24 HR PATCH TRANSDERM ONE (09:00)
--- NOTE | 2018-11-18 09:11 | NUR ---
Received patient very lethargic, Jerking movements at times. Not verbally responsive. Dialysis nurse in the room to start the dialysis. PAtient's Blood pressure very high with SBP>170s. HR 140s. Hydralazine PRN IV given x1. Ativan also given as patient was very agitated. Mother at bedside. Spoke with Dr. Dean, notified him about the patient's condition. he said to stop the dialysis right now , Do not dialyze with that HR. And said to ask the dialysis nurse to come back later. Also seen by Dr. Kohli. He gave an order to give metoprolol IV. Currently HR is 120.
--- NOTE | 2018-11-18 11:23 | NUR ---
Attempted x2 to see patient for Swallow Evaluation. Pt continues to be too lethargic. Will f/u on Tuesday. RN aware.
--- NOTE | 2018-11-18 13:59 | NUR ---
CAlled Yoni and notified that patient's HR is 100-110. and is stable. Told her that Dr. Neely said to dialyzie later in afternoon.
--- NOTE | 2018-11-18 19:38 | NUR ---
Called Yoni again and notified Scheduling person Fina, that patient hasn't been dialyzed yet and the patient is stable now. She said she is working to get the dialysis nurse to do the procedure
--- NOTE | 2018-11-18 21:04 | CONS ---
Date/Time of Note Date/Time of Note DATE: 11/18/18 TIME: 21:04 Assessment/Plan Assessment/Plan Assessment/Plan 1. Altered mental status, rule out CVA vs possible acute onset seizures 2. Hypertensive emergency 3. ESRD on HD TTS schedule, missed HD today 4. H/o HTN 5. H/o HL 6. H/o Lupus 7. H/o Recent admission at [facility] for acute respiratory failure requirine intubation and ventilator care Plan; pt remains confused, behaving strange from her baseline, she recently had a shingles, immunosuprresed with Cellcept and due to lupus, worried abotu HSV encephalitis, I will request Infectious disesae service to see her- /Erika Howard has been consulted Today AM pt has a HR in 140s, BP in 170s, Clonidine Patch 0.2mg applied and IV metoprolol has been ordered HD ordered for today- still awaiting then we will keep pt on TTS schedule. will follow up Result Diagram: 11/18/18 0521 11/18/18 0521 Results 24hrs Laboratory Tests Test 11/18/18 05:21 White Blood Count 3.9 L Red Blood Count 2.64 L Hemoglobin 8.2 L Hematocrit 26.6 L Mean Corpuscular Volume 100.8 Mean Corpuscular Hemoglobin 31.1 Mean Corpuscular Hemoglobin Concent 30.8 L Red Cell Distribution Width 17.6 H Platelet Count 154 Mean Platelet Volume 10.6 H Immature Granulocytes % 0.300 Neutrophils % 50.7 Lymphocytes % 31.3 Monocytes % 16.2 H Eosinophils % 0.5 Basophils % 1.0 Nucleated Red Blood Cells % 0.0 Immature Granulocytes # 0.010 Neutrophils # 2.0 Lymphocytes # 1.2 Monocytes # 0.6 Eosinophils # 0.0 Basophils # 0.0 Nucleated Red Blood Cells # 0.0 Sodium Level 133 L Potassium Level 5.0 Chloride Level 95 L Carbon Dioxide Level 25 Anion Gap 13 Blood Urea Nitrogen 25 H Creatinine 5.58 H Est Glomerular Filtrat Rate mL/min 9 L Glucose Level 81 Calcium Level 8.6 Phosphorus Level 6.4 H Magnesium Level 2.0 Rapid Plasma Reagin NONREACTIVE Consultation Date/Type/Reason Admit Date/Time Nov 16, 2018 at 08:00 Initial Consult Date 11/16/18 Type of Consult NEPHROLOGY Requesting Provider: FARHAD LEZAMA 24 HR Interval Summary Free Text/Dictation pt remains confused lethargic, HR in 140s, BP in 170s, Exam/Review of Systems Vital Signs Vitals Vital Signs Date Temp Pulse Resp B/P (MAP) Pulse Ox O2 O2 Flow FiO2 Time Delivery Rate 11/18/18 99 21 19:32 11/18/18 110 25 19:00 11/18/18 165/104 Room Air 18:00 (124) 11/18/18 98.4 08:00 11/17/18 2.0 04:00 Intake and Output 11/17/18 11/17/18 11/18/18 1515:00 23:00 07:00 IntakeIntake Total 400 ml 180 ml OutputOutput Total 0 ml BalanceBalance 400 ml 180 ml Exam Constitutional: confused, disoriented Psych: confusion Respiratory: congested cough, crackles/rales, diminished breath sounds Cardiovascular: regular rate and rhythm, nl pulses Gastrointestinal: soft Musculoskeletal: muscle weakness, swelling (1-2+ pitting edema ) Extremities: normal pulses Neurological: confused, lethargic, disoriented, behaving strange from her baseline Medications Medications Current Medications Albumin Human 100 ml @ 100 mls/hr WITH DIALYSIS PRN IV SBP less than 90 mm Hg ; Start 11/16/18 at 12:30 Sodium Chloride (NS) -To prime the dialy... DIRECTED FOR HD PRN IV SBP less than 90 mm Hg ; Start 11/16/18 at 12:30 Hydralazine HCl (Apresoline) 20 mg Q4H PRN IV SBP more than 150 mm hg Last administered on 11/18/18at 08:25; Admin Dose 20 MG; Start 11/16/18 at 12:30 Acetaminophen (Tylenol Tab) 650 mg Q6H PRN PO PAIN LEVEL 1-3 OR FEVER; Start 11/16/18 at 13:30 Aspirin (Halfprin) 81 mg DAILY PO Last administered on 11/17/18at 08:56; Admin Dose 81 MG; Start 11/16/18 at 13:30 Carvedilol (Coreg) 25 mg Q8 PO ; Start 11/16/18 at 14:00 Clonidine (Catapres) 0.1 mg BID PO Last administered on 11/17/18at 21:05; Admin Dose 0.1 MG; Start 11/16/18 at 13:30 Hydroxychloroquine Sulfate (Plaquenil) 200 mg DAILY PO ; Start 11/16/18 at 14:30 Lactobacillus Acidophilus/ Rhamnosus (Culturelle) 1 cap BID PO Last administered on 11/17/18 21:03; Admin Dose 1 CAP; Start 11/16/18 at 21:00 Losartan Potassium (Cozaar) 50 mg BID PO Last administered on 11/17/18 21:04; Admin Dose 50 MG; Start 11/16/18 at 13:30 Mycophenolate Mofetil (Cellcept) 1,000 mg BID PO Last administered on 11/17/18 21:05; Admin Dose 1,000 MG; Start 11/16/18 at 14:30 Nifedipine (Procardia Xl) 60 mg BID PO Last administered on 11/17/18 21:04; Admin Dose 60 MG; Start 11/16/18 at 14:30 Prednisone (Prednisone) 5 mg DAILY PO Last administered on 11/17/18 08:56; Admin Dose 5 MG; Start 11/16/18 at 13:30 Sertraline HCl (Zoloft) 25 mg DAILY PO Last administered on 11/17/18 08:57; Admin Dose 25 MG; Start 11/16/18 at 13:30 Tramadol HCl (Ultram) 50 mg Q4 PRN PO severe pain Last administered on 11/17/18 12:07; Admin Dose 50 MG; Start 11/16/18 at 13:30 Nicardipine HCl 200 ml @ 50 mls/hr TITRATE IV Last administered on 11/17/18 09:15; Admin Dose 60 MLS/HR; Start 11/16/18 at 15:00 Heparin Sodium (Porcine) (Heparin (1000 Units/ml)) 4,500 unit AFTER DIALYSIS CATHETER Last administered on 11/18/18 08:42; Admin Dose 4,500 UNIT; Start 11/16/18 at 15:30 Lorazepam (Ativan) 2 mg Q10MIN PRN IV seizures Last administered on 11/18/18 15:28; Admin Dose 2 MG; Start 11/16/18 at 19:00 Diphenhydramine HCl (Benadryl) 25 mg Q6H PRN IV ITCHING Last administered on 11/17/18 04:06; Admin Dose 25 MG; Start 11/17/18 at 03:30 Acyclovir 250 mg/ Dextrose 100 ml @ 100 mls/hr Q24H IVPB Last administered on 11/17/18at 20:39; Admin Dose 100 MLS/HR; Start 11/17/18 at 20:00 Metoprolol Tartrate (Lopressor) 5 mg Q6 IV Last administered on 11/18/18at 18:20; Admin Dose 5 MG; Start 11/18/18 at 09:00 ARTURO AMADOR MD Nov 18, 2018 21:04
[2018-11-18] MEDS: DEXTROSE 5% IVPB SCH (21:33)
[2018-11-18] MEDS: ACYCLOVIR IVPB SCH (21:33)
[2018-11-18] MEDS ORDERED: LORAZEPAM 2 MG INJ IV PRN (21:53)
--- NOTE | 2018-11-18 23:19 | CONS ---
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 Pt completed antibiotics (meropenem) for this on 07/28/2018 - h/o acute hypoxic resp failure, s/p intubation followed by extubation ortho, vascular - h/o eschar and crusted wound of R dorsal hand. No superficial wound culture is available to guide the antibiotic. Soft tissue TYRESE on 07/28/2018 showed 1.7 cm irregular shaped fluid collection in the soft tissues. MRI on 08/06/2018 showed suspicion of infectious myositis/fasciitis, diffuse subcutaneous edema and skin irregularity of R hand; no definite large drainable fluid collection; faint bone marrow edema noted about the carpal bones and base of the third metacarpal, which could be reactive to the soft tissue process although early osteomyelitis is not excluded. - thrombosis of R basilic and right cephalic veins, seen on TYRESE on 07/24/2018 recommendations - will review the result of MRI - I asked lab to find Pt's remaining CSF; if sufficient amount is available, will test it for varciella zoster virus NAAT - if varicella zoster virus in CSF was negative, I recommend another LP to get more CSF tests done - repeat hepatitis B viral load, HIV screen in AM - send diarrhea for C diff - continue renally dosed acyclovir (11/17/2018-) - Place Pt on airborne and contact precautions, and enteric contact while waiting for C diff test result - I advised that Pt's family members who was exposed to her varicella be tested for varicella zoster antibody, and if non-immune, to get post-exposure prophylaxis management d/w Pt, her son, daughter in law, mother, charge nurses, RN Tony, RN Jessica the total time I took to care for this Pt today was from 11:55 to 02:35 Result Diagram: 11/18/18 0511/18/18 0521 Results 24hrs Laboratory Tests Test 11/18/18 05:21 White Blood Count 3.9 L Red Blood Count 2.64 L Hemoglobin 8.2 L Hematocrit 26.6 L Mean Corpuscular Volume 100.8 Mean Corpuscular Hemoglobin 31.1 Mean Corpuscular Hemoglobin Concent 30.8 L Red Cell Distribution Width 17.6 H Platelet Count 154 Mean Platelet Volume 10.6 H Immature Granulocytes % 0.300 Neutrophils % 50.7 Lymphocytes % 31.3 Monocytes % 16.2 H Eosinophils % 0.5 Basophils % 1.0 Nucleated Red Blood Cells % 0.0 Immature Granulocytes # 0.010 Neutrophils # 2.0 Lymphocytes # 1.2 Monocytes # 0.6 Eosinophils # 0.0 Basophils # 0.0 Nucleated Red Blood Cells # 0.0 Sodium Level 133 L Potassium Level 5.0 Chloride Level 95 L Carbon Dioxide Level 25 Anion Gap 13 Blood Urea Nitrogen 25 H Creatinine 5.58 H Est Glomerular Filtrat Rate mL/min 9 L Glucose Level 81 Calcium Level 8.6 Phosphorus Level 6.4 H Magnesium Level 2.0 Rapid Plasma Reagin NONREACTIVE Consultation Date/Type/Reason Admit Date/Time Nov 16, 2018 at 08:00 Date of Consultation: Nov 18, 2018 Type of Consult ID Reason for Consultation seizure, MS change Requesting Provider: ARTURO AMADOR MD Hx of Present Illness This is a 33 yo female with SLE, ESRD on HD via catheter on R chest. She takes prednisone, cellcept and plaquenil. The history was gathered from EMR, my conversation with Pt's mother, brother and sister in law. On 11/15/2018, she presented at ER c/o pruritic rash on her R thigh. She was given a prescription of valacyclovir for varicella dermatitis. It was unclear if she took it; next day at HD center, she was hypertensive, c/o abdominal pain and loose stool. Pt was sent to ER for evaluation on 11/16/2018. She was reportedly altered, c/o ANDERSEN and had witnessed Sz at ER. Head CT did not show acute intra-cranial process. LP was performed. It showed tube #1 WBC 6, PMNs 0%, RBC 0, tube #4 WBC 7, PMNs 14.3, RBC 1000, glucose 42 (concurrent serum glucose 79), and protein 90. Pt had MRI was done on 11/18/2018 and the result is pending. Pt has been in ICU because her mental status has been persistently altered. She has had low grade temp too. her lab is notable for leukopenia, anemia, and hepatitis B surface antigen positive. Pt has been receiving renally dosed acyclovir for a concern of herpes encephalitis. Dr. Amador requested ID consultation on this Pt. altered and unobtainable Past Medical History Medical History: high cholesterol, hypertension, other (ESRD on HD , H/o Seizure disorder , H/o respiratory failure requiring Intuabtion and Ventilator care last time ) Medications Current Medications Albumin Human 100 ml @ 100 mls/hr WITH DIALYSIS PRN IV SBP less than 90 mm Hg ; Start 11/16/18 at 12:30 Sodium Chloride (NS) -To prime the dialy... DIRECTED FOR HD PRN IV SBP less than 90 mm Hg ; Start 11/16/18 at 12:30 Hydralazine HCl (Apresoline) 20 mg Q4H PRN IV SBP more than 150 mm hg Last administered on 11/18/18at 22:43; Admin Dose 20 MG; Start 11/16/18 at 12:30 Acetaminophen (Tylenol Tab) 650 mg Q6H PRN PO PAIN LEVEL 1-3 OR FEVER; Start 11/16/18 at 13:30 Aspirin (Halfprin) 81 mg DAILY PO Last administered on 11/17/18at 08:56; Admin Dose 81 MG; Start 11/16/18 at 13:30 Carvedilol (Coreg) 25 mg Q8 PO ; Start 11/16/18 at 14:00 Clonidine (Catapres) 0.1 mg BID PO Last administered on 11/17/18at 21:05; Admin Dose 0.1 MG; Start 11/16/18 at 13:30 Hydroxychloroquine Sulfate (Plaquenil) 200 mg DAILY PO ; Start 11/16/18 at 14:30 Lactobacillus Acidophilus/ Rhamnosus (Culturelle) 1 cap BID PO Last administered on 11/17/18at 21:03; Admin Dose 1 CAP; Start 11/16/18 at 21:00 Losartan Potassium (Cozaar) 50 mg BID PO Last administered on 11/17/18 21:04; Admin Dose 50 MG; Start 11/16/18 at 13:30 Mycophenolate Mofetil (Cellcept) 1,000 mg BID PO Last administered on 11/17/18 21:05; Admin Dose 1,000 MG; Start 11/16/18 at 14:30 Nifedipine (Procardia Xl) 60 mg BID PO Last administered on 11/17/18 21:04; Admin Dose 60 MG; Start 11/16/18 at 14:30 Prednisone (Prednisone) 5 mg DAILY PO Last administered on 11/17/18 08:56; Admin Dose 5 MG; Start 11/16/18 at 13:30 Sertraline HCl (Zoloft) 25 mg DAILY PO Last administered on 11/17/18 08:57; Admin Dose 25 MG; Start 11/16/18 at 13:30 Tramadol HCl (Ultram) 50 mg Q4 PRN PO severe pain Last administered on 11/17/18 12:07; Admin Dose 50 MG; Start 11/16/18 at 13:30 Nicardipine HCl 200 ml @ 50 mls/hr TITRATE IV Last administered on 11/17/18 09:15; Admin Dose 60 MLS/HR; Start 11/16/18 at 15:00 Heparin Sodium (Porcine) (Heparin (1000 Units/ml)) 4,500 unit AFTER DIALYSIS CATHETER Last administered on 11/18/18 08:42; Admin Dose 4,500 UNIT; Start 11/16/18 at 15:30 Diphenhydramine HCl (Benadryl) 25 mg Q6H PRN IV ITCHING Last administered on 11/17/18 04:06; Admin Dose 25 MG; Start 11/17/18 at 03:30 Acyclovir 250 mg/ Dextrose 100 ml @ 100 mls/hr Q24H IVPB Last administered on 11/18/18 21:33; Admin Dose 100 MLS/HR; Start 11/17/18 at 20:00 Metoprolol Tartrate (Lopressor) 5 mg Q6 IV Last administered on 11/18/18 18:20; Admin Dose 5 MG; Start 11/18/18 at 09:00 Lorazepam (Ativan) 2 mg Q10MIN PRN IV seizures Last administered on 11/18/18at 21:58; Admin Dose 2 MG; Start 11/18/18 at 21:53 Allergies: Coded Allergies: adhesive tape (Verified Allergy, Unknown, 10/26/18) hydrocodone (Unverified Allergy, Unknown, paralysis, 10/13/18) Past Surgical History Past Surgical Hx: other (Permacath for HD access ) Social History Alcohol Use: none Smoking Status: Never smoker Drug Use: none Exam/Review of Systems Vital Signs Vitals Vital Signs Date Temp Pulse Resp B/P (MAP) Pulse Ox O2 O2 Flow FiO2 Time Delivery Rate 11/18/18 99.9 22:44 11/18/18 126 21:50 11/18/18 99 21 19:32 11/18/18 25 19:00 11/18/18 165/104 Room Air 18:00 (124) 11/17/18 2.0 04:00 Intake and Output 11/17/18 11/17/18 11/18/18 1515:00 23:00 07:00 IntakeIntake Total 400 ml 180 ml OutputOutput Total 0 ml BalanceBalance 400 ml 180 ml Exam Constitutional: non-verbal, frail Psych: confusion Head: normocephalic, atraumatic Eyes: nl conjunctiva ENMT: other (white lesions on the tongue, ulcers of the lower lip) Neck: other (not swollen) Respiratory: diminished breath sounds Cardiovascular: regular rate and rhythm, nl pulses Gastrointestinal: soft, non-tender, other (watery diarrhea); No distended Musculoskeletal: nl extremities to inspection Extremities: No edema Neurological: confused, lethargic Skin: other (cluster of fluid filled vesicles on R thigh, scatted fluid filled vesicles in the groin) Medications Medications Current Medications Albumin Human 100 ml @ 100 mls/hr WITH DIALYSIS PRN IV SBP less than 90 mm Hg ; Start 11/16/18 at 12:30 Sodium Chloride (NS) -To prime the dialy... DIRECTED FOR HD PRN IV SBP less than 90 mm Hg ; Start 11/16/18 at 12:30 Hydralazine HCl (Apresoline) 20 mg Q4H PRN IV SBP more than 150 mm hg Last administered on 11/18/18at 22:43; Admin Dose 20 MG; Start 11/16/18 at 12:30 Acetaminophen (Tylenol Tab) 650 mg Q6H PRN PO PAIN LEVEL 1-3 OR FEVER; Start 11/16/18 at 13:30 Aspirin (Halfprin) 81 mg DAILY PO Last administered on 11/17/18 08:56; Admin Dose 81 MG; Start 11/16/18 at 13:30 Carvedilol (Coreg) 25 mg Q8 PO ; Start 11/16/18 at 14:00 Clonidine (Catapres) 0.1 mg BID PO Last administered on 11/17/18 21:05; Admin Dose 0.1 MG; Start 11/16/18 at 13:30 Hydroxychloroquine Sulfate (Plaquenil) 200 mg DAILY PO ; Start 11/16/18 at 14:30 Lactobacillus Acidophilus/ Rhamnosus (Culturelle) 1 cap BID PO Last adminis tered on 11/17/18 21:03; Admin Dose 1 CAP; Start 11/16/18 at 21:00 Losartan Potassium (Cozaar) 50 mg BID PO Last administered on 11/17/18 21:04; Admin Dose 50 MG; Start 11/16/18 at 13:30 Mycophenolate Mofetil (Cellcept) 1,000 mg BID PO Last administered on 11/17/18 21:05; Admin Dose 1,000 MG; Start 11/16/18 at 14:30 Nifedipine (Procardia Xl) 60 mg BID PO Last administered on 11/17/18 21:04; Admin Dose 60 MG; Start 11/16/18 at 14:30 Prednisone (Prednisone) 5 mg DAILY PO Last administered on 11/17/18 08:56; Admin Dose 5 MG; Start 11/16/18 at 13:30 Sertraline HCl (Zoloft) 25 mg DAILY PO Last administered on 11/17/18 08:57; Admin Dose 25 MG; Start 11/16/18 at 13:30 Tramadol HCl (Ultram) 50 mg Q4 PRN PO severe pain Last administered on 11/17/18 12:07; Admin Dose 50 MG; Start 11/16/18 at 13:30 Nicardipine HCl 200 ml @ 50 mls/hr TITRATE IV Last administered on 11/17/18 09:15; Admin Dose 60 MLS/HR; Start 11/16/18 at 15:00 Heparin Sodium (Porcine) (Heparin (1000 Units/ml)) 4,500 unit AFTER DIALYSIS CATHETER Last administered on 11/18/18at 08:42; Admin Dose 4,500 UNIT; Start 11/16/18 at 15:30 Diphenhydramine HCl (Benadryl) 25 mg Q6H PRN IV ITCHING Last administered on 11/17/18at 04:06; Admin Dose 25 MG; Start 11/17/18 at 03:30 Acyclovir 250 mg/ Dextrose 100 ml @ 100 mls/hr Q24H IVPB Last administered on 11/18/18 21:33; Admin Dose 100 MLS/HR; Start 11/17/18 at 20:00 Metoprolol Tartrate (Lopressor) 5 mg Q6 IV Last administered on 11/18/18at 18:20; Admin Dose 5 MG; Start 11/18/18 at 09:00 Lorazepam (Ativan) 2 mg Q10MIN PRN IV seizures Last administered on 11/18/18at 21:58; Admin Dose 2 MG; Start 11/18/18 at 21:53 KAROLYN HERNANDEZ M.D. Nov 18, 2018 23:19
[2018-11-19] VITALS (98 sets, daily range): BP systolic 120–178; BP diastolic 68–123; PULSE 87–122; RESP 12–33
--- NOTE | 2018-11-19 02:00 | NUR ---
Received phone call from [facility], Dialysis to arrive between [id number] 11/19/18 for the cancelled dialysis 11/18/[address] Howard seen patient, and spoke with the family regarding patient's disease process of shingles. Per Dr. Howard, pt to be placed on Airborne and contact precaution, pt is to be placed in a negative pressure room for safety. To verify varicella encephalopathy, requested CSF from lab from previous LP, Will follow up with lab 0600 for specimen. May need repeat LP, if not enough sample CSF available. Pending AM labs to confirm Hep B. Stool sent for c.diff Family requested to speak with the physician, as they have not received an update of patient's plan of care, besides Dr. Howard. Assignment change, Endorsed plan of care to ALTAGRACIA Strange. All questions answered.
[2018-11-19] MEDS: hydrALAzine 20 MG INJ IV PRN (03:17)
[2018-11-19] MEDS: niCARdipine-NS 0.1MG/ML DRIP 200 ML IV SCH ×5 (03:40→15:00)
--- NOTE | 2018-11-19 04:03 | NUR ---
TRANSFER OF CARE: PT RECEIVED FROM NURSE STEELE AT 02:00, BEDSIDE SHIFT REPORT DONE. PT TRANSFERRED FROM ROOM 117 TO ROOM 108 FOR THE APPROPRIATE AIRBORNE AND CONTACT PRECAUTIONS. WCTM AND ASSESS.
--- NOTE | 2018-11-19 04:23 | NUR ---
DIALYSIS CONFIRMATION: #[id number], SPOKE TO KATRINA AT [facility]. SCHEDULED ANYTIME TODAY 11/19/18 FROM 06:00 AND 12:00.
[2018-11-19] MEDS: METOPROLOL 5 MG INJ IV SCH (05:51)
--- NOTE | 2018-11-19 06:35 | EEG ---
EEG NOTE Report Details DATE OF TEST: 11/18/18 HISTORY: The patient is a 33-year-old F who presents with altered mental status and seizure. This EEG is requested to rule out nonconvulsive status epilepticus. SEDATION: None. CONDITIONS OF RECORDING: This EEG was recorded digitally on the [employer] machine, using the International 10-20 System of electrodes plus anterior temporals and Nz. STATES SAMPLED: Lethargic. FINDINGS: The background is grossly continuos and symmetric...predominated by polymorphic delta activity. The normal xliwafcq-di-ogdwcvala frequency-amplitude gradient was absent. Photic stimulation does not elicit any definite driving responses or epileptiform discharges. Hyperventilation was not performed. No asymmetries, focal abnormalities or epileptiform discharges were seen. IMPRESSION: Abnormal electroencephalogram due to: severe diffuse slowing. COMMENT: The slowing of the background indicates severe diffuse cortical dysfunction of nonspecific etiology. Clinical correlation is advised. MARIA D COHN Nov 19, 2018 06:35
--- NOTE | 2018-11-19 06:49 | NUR ---
EOSS: PATIENT REMAINED STABLE THROUGHOUT SHIFT; VITAL SIGNS CHARTED. NO ACUTE CARDIAC EVENTS NOTED. PT TOLERATING ROOM AIR WITH ADEQUATE OXYGENATION SATURATION >92%. PT REMAINS LETHARGIC AND UNABLE TO TOLERATE PO MEDS. PT HAD 4 BM'S LAST NIGHT, CULTURE SENT FOR C.DIFF TESTING. SKIN CARE PROVIDED PER PROTOCOL. PT TURNED AND REPOSITIONED Q2H. FAMILY AT BEDSIDE EARLY LAST NIGHT AND UPDATED ON PLAN OF CARE. PRN HYDRALAZINE GIVEN FOR SBP > 160, REASSESSED NOT EFFECTIVE. PT STARTED ON CARDENE DRIP SHORTLY AFTER, TOLERATING WELL. CSF RECEIVED BY LAB - PENDING RESULTS. INFLUENZA A&B MICRO SPECIMEN COLLECTED AND SENT. PT AFEBRILE AND COMFORTABLE, ALL NEEDS MET. SAFETY MEASURES IN PLACE. WILL CONTINUE TO MONITOR AND ENDORSE CARE TO DAY SHIFT RN.
[2018-11-19] MEDS ORDERED: GLUCOSE GEL 15 GRAM TUBE ONE (07:52)
--- NOTE | 2018-11-19 08:24 | CONS ---
Assessment/Plan Assessment/Plan Hospital Course A: 33 yo F with hx of lupus, on immunosuppressive Tx... who presents for evaluation of ams and "low grade" temperatures. In the ED, she had a witnessed seizure, for which neurology is consulted. The clinical picture is most ominously concerning for meningoencephalitis. An acute toxic-metabolic encephalopathy is additionally considered. Stroke is less likely. CTH is without acute intracranial pathology. CSF is notable for a mild lymphocytic pleocytosis, with low glucose and elevated protein.. The first tube showed elevated reds, which raised initial concern for HSV...however, tube 4 is without red cells.. EEG is without ongoing epileptiform activity P: Await CSF HSV PCR Other infectious workup and management per ID MRI brain without contrast for further characterization when medically able Ativan IV PRN seizure > 5 min or for cluster Reorient as necessary Limit sedating medications where possible Will follow clinically Result Diagram: 11/19/18 0455 11/19/18 0455 Results 24hrs Laboratory Tests Test 11/19/18 04:55 11/19/18 05:16 11/19/18 07:59 White Blood Count 6.5 # Red Blood Count 3.29 #L Hemoglobin 10.2 #L Hematocrit 33.2 #L Mean Corpuscular Volume 100.9 Mean Corpuscular Hemoglobin 31.0 Mean Corpuscular Hemoglobin Concent 30.7 L Red Cell Distribution Width 17.8 H Platelet Count 178 Mean Platelet Volume 10.2 Immature Granulocytes % 0.900 H Neutrophils % 53.9 Lymphocytes % 30.3 Monocytes % 13.7 H Eosinophils % 0.6 Basophils % 0.6 Nucleated Red Blood Cells % 0.0 Immature Granulocytes # 0.060 H Neutrophils # 3.5 Lymphocytes # 2.0 Monocytes # 0.9 Eosinophils # 0.0 Basophils # 0.0 Nucleated Red Blood Cells # 0.0 Sodium Level 135 Potassium Level 4.7 Chloride Level 98 Carbon Dioxide Level 18 L Anion Gap 19 H Blood Urea Nitrogen 27 H Creatinine 5.93 H Est Glomerular Filtrat Rate mL/min 8 L Glucose Level 63 #L Calcium Level 8.9 Phosphorus Level 6.4 H Magnesium Level 2.1 Hepatitis B Surface Antibody NEGATIVE Hepatitis B Core Total Antibody NEGATIVE HIV (1&2) Antibody NEGATIVE Bedside Glucose 69 L Consultation Date/Type/Reason Admit Date/Time Nov 16, 2018 at 08:00 Type of Consult Neurology Reason for Consultation ams, seizure Requesting Provider: ARTURO AMADOR MD Date/Time of Note DATE: 11/19/18 TIME: 08:17 24 HR Interval Summary Free Text/Dictation limited by ams Exam Vital Signs Vitals Vital Signs Date Temp Pulse Resp B/P (MAP) Pulse Ox O2 O2 Flow FiO2 Time Delivery Rate 11/19/18 103 23 137/93 100 Room Air 07:00 (108) 11/19/18 98.4 04:00 11/18/18 21 19:32 11/17/18 2.0 04:00 Intake and Output 11/18/18 11/18/18 11/19/18 1515:00 23:00 07:00 IntakeIntake Total 0 ml 0 ml 270 ml OutputOutput Total 500 ml 0 ml 0 ml BalanceBalance -500 ml 0 ml 270 ml Exam PE: Gen Appearance: No Apparent Distress HEENT: Normocephalic Cardiovascular: Regular rate Abdomen: Soft Extremities: Dry NE: The patient was lethargic, though oriented to person and hospital..able to follow simple commands. Cranial nerve examination was limited by mental status. Pupils were equal and reactive to light. There was no afferent pupillary defect. Funduscopic examination was limited. Face was grossly symmetric, w/ present corneal and cough reflexes. Tone was normal. Muscle bulk was normal. I did not see fasciculations. The patient was diffusely weak.. Coordination and gait testing was limited by mental status. Arm and leg reflexes were within normal limits and symmetric. Walsh's sign was absent. Plantar responses were flexor. MARIA D COHN Nov 19, 2018 08:24
--- NOTE | 2018-11-19 08:44 | PN ---
Date/Time of Note Date/Time of Note DATE: 11/19/18 TIME: 08:40 Assessment/Plan VTE Prophylaxis [place] [facility] [place] risk: 3 [place]CD applied [place] [facility] [place] No SCD contraindicated: other Pharmacological prophylaxis: heparin Pharm contraindication: other Lines/Catheters IV Catheter Type (from [facility]): Permacath Central line still needed: Yes Urinary Cath still in place: No Assessment/Plan Problems: (1) Altered mental status Status: Acute Comment: Patient is slightly better today but not at goal. Neurology is assisting and were pending are studies from the CSF. For now continue aggressive care and treatment. Please note because the patient cannot cooperate for swallowing and then place an NG tube and temporarily for giving her source nutrition also giving us a way to get medications into her GI tract Qualifiers: Altered mental status type: delirium Qualified Codes: R41.0 - Disorientation, unspecified (2) Shingles Status: Acute Comment: Patient is on IV acyclovir dose adjusted for renal dysfunction. Continue treatment. Qualifiers: Herpes zoster complications: unspecified herpes zoster complication Qualified Codes: B02.8 - Zoster with other complications (3) Hepatitis B surface antigen positive Status: Chronic Comment: Noted. Staff is aware to be cautious (4) Renal failure Status: Acute Comment: As per nephrology and dialysis Qualifiers: Renal failure chronicity: acute on chronic Acute renal failure type: unspecified Chronic kidney disease stage: on chronic dialysis Qualified Codes: N17.9 - Acute kidney failure, unspecified; N18.9 - Chronic kidney disease, unspecified; Z99.2 - Dependence on renal dialysis (5) Hypertensive emergency without congestive heart failure Status: Acute Comment: Adequate blood pressure control at this time Result Diagram: 11/19/18 0455 11/19/18 0455 Results 24hrs Laboratory Tests Test 11/19/18 04:55 11/19/18 05:16 11/19/18 07:59 White Blood Count 6.5 # Red Blood Count 3.29 #L Hemoglobin 10.2 #L Hematocrit 33.2 #L Mean Corpuscular Volume 100.9 Mean Corpuscular Hemoglobin 31.0 Mean Corpuscular Hemoglobin Concent 30.7 L Red Cell Distribution Width 17.8 H Platelet Count 178 Mean Platelet Volume 10.2 Immature Granulocytes % 0.900 H Neutrophils % 53.9 Lymphocytes % 30.3 Monocytes % 13.7 H Eosinophils % 0.6 Basophils % 0.6 Nucleated Red Blood Cells % 0.0 Immature Granulocytes # 0.060 H Neutrophils # 3.5 Lymphocytes # 2.0 Monocytes # 0.9 Eosinophils # 0.0 Basophils # 0.0 Nucleated Red Blood Cells # 0.0 Sodium Level 135 Potassium Level 4.7 Chloride Level 98 Carbon Dioxide Level 18 L Anion Gap 19 H Blood Urea Nitrogen 27 H Creatinine 5.93 H Est Glomerular Filtrat Rate mL/min 8 L Glucose Level 63 #L Calcium Level 8.9 Phosphorus Level 6.4 H Magnesium Level 2.1 Hepatitis B Surface Antibody NEGATIVE Hepatitis B Core Total Antibody NEGATIVE HIV (1&2) Antibody NEGATIVE Bedside Glucose 69 L Subjective 24 Hr Interval Summary Free Text/Dictation Patient opens eyes when her name is spoken but is not following commands yet. This however is better than she was yesterday Subjective hx not possible: pt non-verbal Exam/Review of Systems Vital Signs Vitals Vital Signs Date Temp Pulse Resp B/P (MAP) Pulse Ox O2 O2 Flow FiO2 Time Delivery Rate 11/19/18 103 23 137/93 100 Room Air 07:00 (108) 11/19/18 98.4 04:00 11/18/18 21 19:32 11/17/18 2.0 04:00 Intake and Output 11/18/18 11/18/18 11/19/18 1414:59 22:59 06:59 IntakeIntake Total 0 ml 0 ml 220 ml OutputOutput Total 500 ml 0 ml 0 ml BalanceBalance -500 ml 0 ml 220 ml Exam Constitutional: non-verbal (Arousable) Head: normocephalic, atraumatic Respiratory: clear to auscultation, normal air movement Cardiovascular: regular rate and rhythm, nl pulses Gastrointestinal: soft, nl liver, spleen, non-tender Medications Medications Current Medications Albumin Human 100 ml @ 100 mls/hr WITH DIALYSIS PRN IV SBP less than 90 mm Hg ; Start 11/16/18 at 12:30 Sodium Chloride (NS) -To prime the dialy... DIRECTED FOR HD PRN IV SBP less than 90 mm Hg ; Start 11/16/18 at 12:30 Hydralazine HCl (Apresoline) 20 mg Q4H PRN IV SBP more than 150 mm hg Last administered on 11/19/18at 03:17; Admin Dose 20 MG; Start 11/16/18 at 12:30 Acetaminophen (Tylenol Tab) 650 mg Q6H PRN PO PAIN LEVEL 1-3 OR FEVER; Start 11/16/18 at 13:30 Aspirin (Halfprin) 81 mg DAILY PO Last administered on 11/17/18 08:56; Admin Dose 81 MG; Start 11/16/18 at 13:30 Carvedilol (Coreg) 25 mg Q8 PO ; Start 11/16/18 at 14:00 Clonidine (Catapres) 0.1 mg BID PO Last administered on 11/17/18 21:05; Admin Dose 0.1 MG; Start 11/16/18 at 13:30 Hydroxychloroquine Sulfate (Plaquenil) 200 mg DAILY PO ; Start 11/16/18 at 14:30 Lactobacillus Acidophilus/ Rhamnosus (Culturelle) 1 cap BID PO Last administered on 11/17/18at 21:03; Admin Dose 1 CAP; Start 11/16/18 at 21:00 Losartan Potassium (Cozaar) 50 mg BID PO Last administered on 11/17/18 21:04; Admin Dose 50 MG; Start 11/16/18 at 13:30 Mycophenolate Mofetil (Cellcept) 1,000 mg BID PO Last administered on 11/17/18 21:05; Admin Dose 1,000 MG; Start 11/16/18 at 14:30 Nifedipine (Procardia Xl) 60 mg BID PO Last administered on 11/17/18 21:04; Admin Dose 60 MG; Start 11/16/18 at 14:30 Prednisone (Prednisone) 5 mg DAILY PO Last administered on 11/17/18 08:56; Admin Dose 5 MG; Start 11/16/18 at 13:30 Sertraline HCl (Zoloft) 25 mg DAILY PO Last administered on 11/17/18 08:57; Admin Dose 25 MG; Start 11/16/18 at 13:30 Tramadol HCl (Ultram) 50 mg Q4 PRN PO severe pain Last administered on 11/17/18 12:07; Admin Dose 50 MG; Start 11/16/18 at 13:30 Nicardipine HCl 200 ml @ 50 mls/hr TITRATE IV Last administered on 11/19/18 08:10; Admin Dose 50 MLS/HR; Start 11/16/18 at 15:00 Heparin Sodium (Porcine) (Heparin (1000 Units/ml)) 4,500 unit AFTER DIALYSIS CATHETER Last administered on 11/18/18 08:42; Admin Dose 4,500 UNIT; Start 11/16/18 at 15:30 Diphenhydramine HCl (Benadryl) 25 mg Q6H PRN IV ITCHING Last administered on 11/17/18at 04:06; Admin Dose 25 MG; Start 11/17/18 at 03:30 Acyclovir 250 mg/ Dextrose 100 ml @ 100 mls/hr Q24H IVPB Last administered on 11/18/18 21:33; Admin Dose 100 MLS/HR; Start 11/17/18 at 20:00 Metoprolol Tartrate (Lopressor) 5 mg Q6 IV Last administered on 11/19/18at 05:51; Admin Dose 5 MG; Start 11/18/18 at 09:00 Lorazepam (Ativan) 2 mg Q10MIN PRN IV seizures Last administered on 11/18/18at 21:58; Admin Dose 2 MG; Start 11/18/18 at 21:53 Lidocaine (Xylocaine 1% (Mpf)) 5 ml ONCE ONCE SC ; Start 11/19/18 at 09:00; Stop 11/19/18 at 09:01; Status RYAN JO MD Nov 19, 2018 08:44
[2018-11-19] MEDS ORDERED: DEXTROSE 10% 1,000 ML IV SCH (09:00)
[2018-11-19] MEDS ORDERED: LIDOCAINE 1% (MPF) 5 ML VIAL SC ONE (09:00)
--- NOTE | 2018-11-19 09:27 | NUR ---
Paged Dr. Chang to clear up quantitative/qualitative CSF test. Lab calling for verification.
--- NOTE | 2018-11-19 10:33 | CONS ---
Date/Time of Note Date/Time of Note DATE: 11/19/18 TIME: 10:33 Assessment/Plan Assessment/Plan Assessment/Plan 1. Altered mental status 2. Hypertensive emergency 3. ESRD on HD TTS schedule, missed HD today 4. H/o HTN 5. H/o HL 6. H/o Lupus 7. H/o Recent admission at [facility] for acute respiratory failure requirine intubation and ventilator care Plan; s/p Lumbar puncture, Sent for labs,pt still confused disorineted and strange from her baseline behaviour, HD from yesterday was not done until today am, it was started at 6.30 am and finished at 9.30 am today pt remains confused, behaving strange from her baseline, she recently had a shingles, immunosuppressed with Cellcept and due to lupus, worried about HSV encephalitis, I will request Infectious disease service to see her- /Erika Howard has been consulted Clonidine Patch 0.2mg applied and IV metoprolol has been ordered will follow up Result Diagram: 11/19/18 0455 11/19/18 0455 Results 24hrs Laboratory Tests Test 11/19/18 04:55 11/19/18 05:16 11/19/18 07:59 11/19/18 10:08 White Blood Count 6.5 # Red Blood Count 3.29 #L Hemoglobin 10.2 #L Hematocrit 33.2 #L Mean Corpuscular 100.9 Volume Mean Corpuscular 31.0 Hemoglobin Mean Corpuscular 30.7 L Hemoglobin Concent Red Cell 17.8 H Distribution Width Platelet Count 178 Mean Platelet Volume 10.2 Immature 0.900 H Granulocytes % Neutrophils % 53.9 Lymphocytes % 30.3 Monocytes % 13.7 H Eosinophils % 0.6 Basophils % 0.6 Nucleated Red Blood 0.0 Cells % Immature 0.060 H Granulocytes # Neutrophils # 3.5 Lymphocytes # 2.0 Monocytes # 0.9 Eosinophils # 0.0 Basophils # 0.0 Nucleated Red Blood 0.0 Cells # Sodium Level 135 Potassium Level 4.7 Chloride Level 98 Carbon Dioxide Level 18 L Anion Gap 19 H Blood Urea Nitrogen 27 H Creatinine 5.93 H Est Glomerular 8 L Filtrat Rate mL/min Glucose Level 63 #L Calcium Level 8.9 Phosphorus Level 6.4 H Magnesium Level 2.1 Hepatitis B Surface NEGATIVE Antibody Hepatitis B Core NEGATIVE Total Antibody HIV (1&2) Antibody NEGATIVE Bedside Glucose 69 L 93 Consultation Date/Type/Reason Admit Date/Time Nov 16, 2018 at 08:00 Initial Consult Date 11/16/18 Type of Consult NEPHROLOGY Requesting Provider: ARTURO AMADOR MD 24 HR Interval Summary Free Text/Dictation s/p Lumbar puncture, Sent for labs,pt still confuse disorineted and strange from her baseline behaviour, HD from yesterday was not done until today am, it was started at 6.30 am and finished at 9.30 am Exam/Review of Systems Vital Signs Vitals Vital Signs Date Temp Pulse Resp B/P (MAP) Pulse Ox O2 O2 Flow FiO2 Time Delivery Rate 11/19/18 112 10:05 11/19/18 24 152/75 100 Room Air 09:35 (100) 11/19/18 98.4 04:00 11/18/18 21 19:32 11/17/18 2.0 04:00 Intake and Output 11/18/18 11/18/18 11/19/18 1515:00 23:00 07:00 IntakeIntake Total 0 ml 0 ml 270 ml OutputOutput Total 500 ml 0 ml 0 ml BalanceBalance -500 ml 0 ml 270 ml Exam Constitutional: confused, disoriented Psych: confusion Respiratory: congested cough, crackles/rales, diminished breath sounds Cardiovascular: regular rate and rhythm, nl pulses Gastrointestinal: soft Musculoskeletal: muscle weakness, swelling (1-2+ pitting edema ) Extremities: normal pulses Neurological: confused, lethargic, disoriented, behaving strange from her baseline Medications Medications Current Medications Albumin Human 100 ml @ 100 mls/hr WITH DIALYSIS PRN IV SBP less than 90 mm Hg ; Start 11/16/18 at 12:30 Sodium Chloride (NS) -To prime the dialy... DIRECTED FOR HD PRN IV SBP less than 90 mm Hg ; Start 11/16/18 at 12:30 Hydralazine HCl (Apresoline) 20 mg Q4H PRN IV SBP more than 150 mm hg Last administered on 11/19/18at 03:17; Admin Dose 20 MG; Start 11/16/18 at 12:30 Acetaminophen (Tylenol Tab) 650 mg Q6H PRN PO PAIN LEVEL 1-3 OR FEVER; Start 11/16/18 at 13:30 Aspirin (Halfprin) 81 mg DAILY PO Last administered on 11/17/18 08:56; Admin Dose 81 MG; Start 11/16/18 at 13:30 Carvedilol (Coreg) 25 mg Q8 PO ; Start 11/16/18 at 14:00 Clonidine (Catapres) 0.1 mg BID PO Last administered on 11/17/18 21:05; Admin Dose 0.1 MG; Start 11/16/18 at 13:30 Hydroxychloroquine Sulfate (Plaquenil) 200 mg DAILY PO ; Start 11/16/18 at 14:30 Lactobacillus Acidophilus/ Rhamnosus (Culturelle) 1 cap BID PO Last administered on 11/17/18 21:03; Admin Dose 1 CAP; Start 11/16/18 at 21:00 Losartan Potassium (Cozaar) 50 mg BID PO Last administered on 11/17/18 21:04; Admin Dose 50 MG; Start 11/16/18 at 13:30 Mycophenolate Mofetil (Cellcept) 1,000 mg BID PO Last administered on 11/17/18 21:05; Admin Dose 1,000 MG; Start 11/16/18 at 14:30 Nifedipine (Procardia Xl) 60 mg BID PO Last administered on 11/17/18 21:04; Admin Dose 60 MG; Start 11/16/18 at 14:30 Prednisone (Prednisone) 5 mg DAILY PO Last administered on 11/17/18 08:56; Admin Dose 5 MG; Start 11/16/18 at 13:30 Sertraline HCl (Zoloft) 25 mg DAILY PO Last administered on 11/17/18 08:57; Admin Dose 25 MG; Start 11/16/18 at 13:30 Tramadol HCl (Ultram) 50 mg Q4 PRN PO severe pain Last administered on 11/17/18 12:07; Admin Dose 50 MG; Start 11/16/18 at 13:30 Nicardipine HCl 200 ml @ 50 mls/hr TITRATE IV Last administered on 11/19/18 08:10; Admin Dose 50 MLS/HR; Start 11/16/18 at 15:00 Heparin Sodium (Porcine) (Heparin (1000 Units/ml)) 4,500 unit AFTER DIALYSIS CATHETER Last administered on 11/18/18 08:42; Admin Dose 4,500 UNIT; Start 11/16/18 at 15:30 Diphenhydramine HCl (Benadryl) 25 mg Q6H PRN IV ITCHING Last administered on 11/17/18at 04:06; Admin Dose 25 MG; Start 11/17/18 at 03:30 Acyclovir 250 mg/ Dextrose 100 ml @ 100 mls/hr Q24H IVPB Last administered on 11/18/18at 21:33; Admin Dose 100 MLS/HR; Start 11/17/18 at 20:00 Metoprolol Tartrate (Lopressor) 5 mg Q6 IV Last administered on 11/19/18at 05:51; Admin Dose 5 MG; Start 11/18/18 at 09:00 Lorazepam (Ativan) 2 mg Q10MIN PRN IV seizures Last administered on 11/18/18at 21:58; Admin Dose 2 MG; Start 11/18/18 at 21:53 Dextrose 1,000 ml @ 50 mls/hr Q20H IV Last administered on 11/19/18at 08:56; Admin Dose 50 MLS/HR; Start 11/19/18 at 09:00 ARTURO AMADOR MD Nov 19, 2018 10:33
[2018-11-19] MEDS ORDERED: METOPROLOL 5 MG INJ IV PRN (11:30)
--- NOTE | 2018-11-19 11:45 | NUR ---
Nutrition Notes: Consult for NGT feeding. Pt being dialyzed at time of visit. Spoke w/pt's nurse and pt on novasource @ 30 ml/hr. RD Recommendation 1. Continue Novasource renal @ 30 ml/hr to provide: 720 ml, 1440 kcal, 65 g protein, 516 ml free H2O
[2018-11-19] MEDS: HYDROXYCHLOROQUINE 200 MG TAB NGT SCH (12:00)
[2018-11-19] MEDS: HEPARIN 1000 UNITS/ML 10 ML INJ CATHETER SCH (13:00)
[2018-11-19] MEDS: NIFEdipine 10 MG CAP NGT SCH ×2 (14:39→17:58)
[2018-11-19] MEDS: SERTRALINE 50 MG TAB NGT SCH (14:40)
[2018-11-19] MEDS: MYCOPHENOLATE 250 MG CAP PO SCH ×2 (14:40→20:30)
[2018-11-19] MEDS: LOSARTAN 50 MG TAB NGT SCH ×2 (14:40→20:30)
[2018-11-19] MEDS: ASPIRIN 81 MG TAB NGT SCH (14:41)
[2018-11-19] MEDS: LACTOBACILLUS RHAMNOSUS CAP NGT SCH ×2 (14:41→20:31)
[2018-11-19] MEDS: predniSONE 5 MG TAB NGT SCH ×2 (14:41→20:31)
--- NOTE | 2018-11-19 15:46 | PN ---
Date/Time of Note Date/Time of Note DATE: 11/19/18 TIME: 15:42 Assessment/Plan VTE Prophylaxis Risk score (from [facility])>0 risk: 4 SCD applied (from [facility]): Yes Pharmacological prophylaxis: other (per primary) Lines/Catheters IV Catheter Type (from Nrsg): Permacath Urinary Cath still in place: No Assessment/Plan Hospital Course 33 yo with lupus and hypertensive urgency Assessment/Plan Impression: Hypertensive urgency Encephalopathy Renal failure on dialysis Lupus Pericardial effusion, small and stable at this point Anemia Shingles Recommendations PO meds held for two days, now has an ng tube and can receive bp meds that way neuro/infectious workup Wean cardene drip as able Result Diagram: 11/19/185 11/19/18 0455 Results 24hrs Laboratory Tests Test 11/19/18 04:55 11/19/18 05:16 11/19/18 07:59 11/19/18 10:08 White Blood Count 6.5 # Red Blood Count 3.29 #L Hemoglobin 10.2 #L Hematocrit 33.2 #L Mean Corpuscular 100.9 Volume Mean Corpuscular 31.0 Hemoglobin Mean Corpuscular 30.7 L Hemoglobin Concent Red Cell 17.8 H Distribution Width Platelet Count 178 Mean Platelet Volume 10.2 Immature 0.900 H Granulocytes % Neutrophils % 53.9 Lymphocytes % 30.3 Monocytes % 13.7 H Eosinophils % 0.6 Basophils % 0.6 Nucleated Red Blood 0.0 Cells % Immature 0.060 H Granulocytes # Neutrophils # 3.5 Lymphocytes # 2.0 Monocytes # 0.9 Eosinophils # 0.0 Basophils # 0.0 Nucleated Red Blood 0.0 Cells # Sodium Level 135 Potassium Level 4.7 Chloride Level 98 Carbon Dioxide Level 18 L Anion Gap 19 H Blood Urea Nitrogen 27 H Creatinine 5.93 H Est Glomerular 8 L Filtrat Rate mL/min Glucose Level 63 #L Calcium Level 8.9 Phosphorus Level 6.4 H Magnesium Level 2.1 Hepatitis B Surface NEGATIVE Antibody Hepatitis B Core NEGATIVE Total Antibody HIV (1&2) Antibody NEGATIVE Bedside Glucose 69 L 93 Test 11/19/18 13:10 Bedside Glucose 78 Subjective 24 Hr Interval Summary Free Text/Dictation Somnolent, answers simple questions, denies pain Exam/Review of Systems Vital Signs Vitals Vital Signs Date Temp Pulse Resp B/P (MAP) Pulse Ox O2 O2 Flow FiO2 Time Delivery Rate 11/19/18 121 25 148/91 100 Room Air 14:00 (110) 11/19/18 98.6 12:00 11/18/18 21 19:32 11/17/18 2.0 04:00 Intake and Output 11/18/18 11/18/18 11/19/18 1414:59 22:59 06:59 IntakeIntake Total 0 ml 0 ml 220 ml OutputOutput Total 500 ml 0 ml 0 ml BalanceBalance -500 ml 0 ml 220 ml Exam Constitutional: other (arousable but somnolent) Psych: other (flat affect) Head: normocephalic, atraumatic Eyes: nl conjunctiva, EOMI ENMT: other (malar rash. NGT in place) Neck: No jvd, No bruits Respiratory: clear to auscultation (anteriorly) Cardiovascular: regular rate and rhythm, murmurs/extra sounds (systolic murmur) Gastrointestinal: soft, non-tender Musculoskeletal: nl extremities to inspection Extremities: edema Neurological: lethargic Skin: nl turgor, other (malar rash) Medications Medications Current Medications Albumin Human 100 ml @ 100 mls/hr WITH DIALYSIS PRN IV SBP less than 90 mm Hg ; Start 11/16/18 at 12:30 Sodium Chloride (NS) -To prime the dialy... DIRECTED FOR HD PRN IV SBP less than 90 mm Hg ; Start 11/16/18 at 12:30 Hydralazine HCl (Apresoline) 20 mg Q4H PRN IV SBP more than 150 mm hg Last administered on 11/19/18at 03:17; Admin Dose 20 MG; Start 11/16/18 at 12:30 Acetaminophen (Tylenol Tab) 650 mg Q6H PRN PO PAIN LEVEL 1-3 OR FEVER; Start 11/16/18 at 13:30 Mycophenolate Mofetil (Cellcept) 1,000 mg BID PO Last administered on 11/19/18at 14:40; Admin Dose 1,000 MG; Start 11/16/18 at 14:30 Tramadol HCl (Ultram) 50 mg Q4 PRN PO severe pain Last administered on 11/17/18at 12:07; Admin Dose 50 MG; Start 11/16/18 at 13:30 Heparin Sodium (Porcine) (Heparin (1000 Units/ml)) 4,500 unit AFTER DIALYSIS CATHETER Last administered on 11/19/18 13:00; Admin Dose 4,500 UNIT; Start 11/16/18 at 15:30 Diphenhydramine HCl (Benadryl) 25 mg Q6H PRN IV ITCHING Last administered on 11/17/18 04:06; Admin Dose 25 MG; Start 11/17/18 at 03:30 Acyclovir 250 mg/ Dextrose 100 ml @ 100 mls/hr Q24H IVPB Last administered on 11/18/18 21:33; Admin Dose 100 MLS/HR; Start 11/17/18 at 20:00 Lorazepam (Ativan) 2 mg Q10MIN PRN IV seizures Last administered on 11/18/18 21:58; Admin Dose 2 MG; Start 11/18/18 at 21:53 Dextrose 1,000 ml @ 50 mls/hr Q20H IV Last administered on 11/19/18 08:56; Admin Dose 50 MLS/HR; Start 11/19/18 at 09:00 Aspirin (Aspirin) 81 mg DAILY NGT Last administered on 11/19/18 14:41; Admin Dose 81 MG; Start 11/19/18 at 11:30 Nifedipine (Procardia) 20 mg Q6 NGT Last administered on 11/19/18 14:39; Admin Dose 20 MG; Start 11/19/18 at 12:00 Metoprolol Tartrate (Lopressor) 5 mg Q6H PRN IV PALPITATION; Start 11/19/18 at 11:30 Carvedilol (Coreg) 50 mg Q12 NGT Last administered on 11/19/18 12:00; Admin D ose 50 MG; Start 11/19/18 at 12:00 Clonidine (Catapres) 0.1 mg BID NGT Last administered on 11/19/18 14:42; Admin Dose 0.1 MG; Start 11/19/18 at 12:00 Hydroxychloroquine Sulfate (Plaquenil) 200 mg DAILY NGT Last administered on 11/19/18 12:00; Admin Dose 200 MG; Start 11/19/18 at 12:00 Lactobacillus Acidophilus/ Rhamnosus (Culturelle) 1 cap BID NGT Last administered on 11/19/18 14:41; Admin Dose 1 CAP; Start 11/19/18 at 12:00 Losartan Potassium (Cozaar) 50 mg BID NGT Last administered on 11/19/18at 14:40; Admin Dose 50 MG; Start 11/19/18 at 12:00 Prednisone (Prednisone) 5 mg BID NGT Last administered on 11/19/18at 14:41; Admin Dose 5 MG; Start 11/19/18 at 12:00 Sertraline HCl (Zoloft) 25 mg DAILY NGT Last administered on 11/19/18at 14:40; Admin Dose 25 MG; Start 11/19/18 at 12:00 Nicardipine HCl 200 ml @ 50 mls/hr TITRATE IV Last administered on 11/19/18at 15:00; Admin Dose 75 MLS/HR; Start 11/19/18 at 15:00 MADYSON ERWIN Nov 19, 2018 15:46
--- NOTE | 2018-11-19 18:00 | NUR ---
PICC Insertion. ICU bed 108-A for peripherally inserted central catheter (PICC) insertion. Patient sleepy awakens with verbal and tactile stimuli. Patient has had previous PICC's in the past. Procedure reviewed, patient agreed to proceed. Signed consent on chart for PICC by patient's mother.RUE limited Ultrasound performed; basilic and brachial vein compress without difficulty. RUE prepped with chlorhexidene, then maximum barrier drape applied. 5 FR double lumen Arrow Power PICC inserted into basilic vein, blue tip cut, using U/S guidance and sterile technique. CXR performed; tip confirmed in SVC. Sterile dressing applied.Both ports flushed with sterile normal saline without difficulty with brisk dark red color nonpulsatile blood return noted both before and after sterile dressing applied. Patient tolerated procedure well.Total length of catheter 36CM,1 EXP.Lot number [id number]. Lidocaine 1% 1ml sc route RUE PICC line insertion site.
[2018-11-19] MEDS: DEXTROSE 5% IVPB SCH (20:28)
[2018-11-19] MEDS: ACYCLOVIR IVPB SCH (20:28)
[2018-11-19] MEDS ORDERED: predniSONE 5 MG TAB NGT SCH (21:00)
[2018-11-19] MEDS ORDERED: LOSARTAN 50 MG TAB NGT SCH (21:00)
[2018-11-19] MEDS ORDERED: LACTOBACILLUS RHAMNOSUS CAP NGT SCH (21:00)
--- NOTE | 2018-11-19 23:52 | CONS ---
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: notable for R L2-3 dermatomes, but also possibly tongue and lip - varicella infections of the tongue - seizure secondary to encephalitis GI - abdominal pain and watery diarrhea, C diff was negative on 11/19/2018 - hep B virus surface antigen positive status; hep B DNA viral load was undetectable on 07/22/2018, possibly reflecting chronic HBV carrier state - h/o pancreatitis in 2018 cardiac - reportedly had code blue after admission - h/o cardiopulmonary arrest - EF 55% renal, immunological - ESRD on HD via catheter on R chest wall - lupus nephritis, on cellcept, prednisome, plaquenil pulmonary - h/o extensive bilateral lower lung consolidative changes with ground-glass consistent with likely multifocal pneumonia on CT 07/17/2018. Pt completed antibiotics (meropenem) for this on 07/28/2018 - h/o acute hypoxic resp failure, s/p intubation followed by extubation ortho, vascular - h/o eschar and crusted wound of R dorsal hand. No superficial wound culture is available to guide the antibiotic. Soft tissue TYRESE on 07/28/2018 showed 1.7 cm irregular shaped fluid collection in the soft tissues. MRI on 08/06/2018 showed suspicion of infectious myositis/fasciitis, diffuse subcutaneous edema and skin irregularity of R hand; no definite large drainable fluid collection; faint bone marrow edema noted about the carpal bones and base of the third metacarpal, which could be reactive to the soft tissue process although early osteomyelitis is not excluded. - thrombosis of R basilic and right cephalic veins, seen on TYRESE on 07/24/2018 recommendations - pending: repeat hepatitis B viral load - I instructed Pt's ALTAGRACIA Mas to inquire the micro lab and send out if varicella zoster virus PCR has been added to Pt's left over CSF at 5:00 am on 11/20/2018 - if Pt remains altered despite high dose acyclovir, I recommend another LP to get more CSF for testing - ordered: hepatitis B eAntigen and hepatitis B eAntibody - continue renally dosed acyclovir (11/17/2018-) - keep Pt on airborne and contact precautions until all varicella lesions are dry and crusted - on 11/18/2018 I advised that Pt's family members who were exposed to her varicella be tested for varicella zoster antibody, and if non-immune, to get post-exposure prophylaxis management d/w Pt, iPlar Bucio at main lab the total time I took to care for this Pt today was from 2300 to 2350 Result Diagram: 11/19/18 0455 11/19/18 0455 Results 24hrs Laboratory Tests Test 11/19/18 04:55 11/19/18 05:16 11/19/18 07:59 11/19/18 10:08 White Blood Count 6.5 # Red Blood Count 3.29 #L Hemoglobin 10.2 #L Hematocrit 33.2 #L Mean Corpuscular 100.9 Volume Mean Corpuscular 31.0 Hemoglobin Mean Corpuscular 30.7 L Hemoglobin Concent Red Cell 17.8 H Distribution Width Platelet Count 178 Mean Platelet Volume 10.2 Immature 0.900 H Granulocytes % Neutrophils % 53.9 Lymphocytes % 30.3 Monocytes % 13.7 H Eosinophils % 0.6 Basophils % 0.6 Nucleated Red Blood 0.0 Cells % Immature 0.060 H Granulocytes # Neutrophils # 3.5 Lymphocytes # 2.0 Monocytes # 0.9 Eosinophils # 0.0 Basophils # 0.0 Nucleated Red Blood 0.0 Cells # Sodium Level 135 Potassium Level 4.7 Chloride Level 98 Carbon Dioxide Level 18 L Anion Gap 19 H Blood Urea Nitrogen 27 H Creatinine 5.93 H Est Glomerular 8 L Filtrat Rate mL/min Glucose Level 63 #L Calcium Level 8.9 Phosphorus Level 6.4 H Magnesium Level 2.1 Hepatitis B Surface NEGATIVE Antibody Hepatitis B Core NEGATIVE Total Antibody HIV (1&2) Antibody NEGATIVE Bedside Glucose 69 L 93 Test 11/19/18 13:10 11/19/18 17:12 Bedside Glucose 78 93 Consultation Date/Type/Reason Admit Date/Time Nov 16, 2018 at 08:00 Initial Consult Date 11/18/18 Type of Consult ID Requesting Provider: ARTURO AMADOR MD 24 HR Interval Summary Free Text/Dictation NGT was placed Constitutional: No febrile Detailed Summary Eyes: no complaints ENT: no complaints Respiratory: no complaints Cardiovascular: no complaints Gastrointestinal: no complaints Genitourinary: other (on HD) Musculoskeletal: no complaints Skin: pruritis (face), rash (R thigh) Neurologic: No headache Exam/Review of Systems Vital Signs Vitals Vital Signs Date Temp Pulse Resp B/P (MAP) Pulse Ox O2 O2 Flow FiO2 Time Delivery Rate 11/19/18 107 20:00 11/19/18 24 121/68 100 18:45 (85) 11/19/18 Room Air 18:00 11/19/18 98.4 15:45 11/18/18 21 19:32 11/17/18 2.0 04:00 Intake and Output 11/18/18 11/18/18 11/19/18 1515:00 23:00 07:00 IntakeIntake Total 0 ml 0 ml 270 ml OutputOutput Total 500 ml 0 ml 0 ml BalanceBalance -500 ml 0 ml 270 ml Exam Constitutional: frail Head: normocephalic, atraumatic Eyes: nl conjunctiva, nl lids ENMT: nl external ears & nose, other (white circles on the tongue, NGT) Neck: other (not swollen) Respiratory: clear to auscultation, normal air movement Cardiovascular: regular rate and rhythm, nl pulses Gastrointestinal: soft, non-tender; No distended, No tender Musculoskeletal: nl extremities to inspection Extremities: No edema Neurological: lethargic Skin: rash or lesions (vesciles on R thigh and R back, L2-3 distribution) Medications Medications Current Medications Albumin Human 100 ml @ 100 mls/hr WITH DIALYSIS PRN IV SBP less than 90 mm Hg ; Start 11/16/18 at 12:30 Sodium Chloride (NS) -To prime the dialy... DIRECTED FOR HD PRN IV SBP less than 90 mm Hg ; Start 11/16/18 at 12:30 Hydralazine HCl (Apresoline) 20 mg Q4H PRN IV SBP more than 150 mm hg Last administered on 11/19/18at 03:17; Admin Dose 20 MG; Start 11/16/18 at 12:30 Acetaminophen (Tylenol Tab) 650 mg Q6H PRN PO PAIN LEVEL 1-3 OR FEVER; Start 11/16/18 at 13:30 Mycophenolate Mofetil (Cellcept) 1,000 mg BID PO Last administered on 11/19/18at 20:30; Admin Dose 1,000 MG; Start 11/16/18 at 14:30 Tramadol HCl (Ultram) 50 mg Q4 PRN PO severe pain Last administered on 11/17/18 12:07; Admin Dose 50 MG; Start 11/16/18 at 13:30 Heparin Sodium (Porcine) (Heparin (1000 Units/ml)) 4,500 unit AFTER DIALYSIS CATHETER Last administered on 11/19/18 13:00; Admin Dose 4,500 UNIT; Start at 15:30 Diphenhydramine HCl (Benadryl) 25 mg Q6H PRN IV ITCHING Last administered on 11/17/18 04:06; Admin Dose 25 MG; Start 11/17/18 at 03:30 Acyclovir 250 mg/ Dextrose 100 ml @ 100 mls/hr Q24H IVPB Last administered on 11/19/18 20:28; Admin Dose 100 MLS/HR; Start 11/17/18 at 20:00 Lorazepam (Ativan) 2 mg Q10MIN PRN IV seizures Last administered on 11/18/18 21:58; Admin Dose 2 MG; Start 11/18/18 at 21:53 Aspirin (Aspirin) 81 mg DAILY NGT Last administered on 11/19/18 14:41; Admin Dose 81 MG; Start 11/19/18 at 11:30 Nifedipine (Procardia) 20 mg Q6 NGT Last administered on 11/19/18 17:58; Admin Dose 20 MG; Start 11/19/18 at 12:00 Metoprolol Tartrate (Lopressor) 5 mg Q6H PRN IV PALPITATION; Start 11/19/18 at 11:30 Carvedilol (Coreg) 50 mg Q12 NGT Last administered on 11/19/18 20:30; Admin Dose 50 MG; Start 11/19/18 at 12:00 Clonidine (Catapres) 0.1 mg BID NGT Last administered on 11/19/18 20:30; Admin Dose 0.1 MG; Start 11/19/18 at 12:00 Hydroxychloroquine Sulfate (Plaquenil) 200 mg DAILY NGT Last administered on 11/19/18 12:00; Admin Dose 200 MG; Start 11/19/18 at 12:00 Lactobacillus Acidophilus/ Rhamnosus (Culturelle) 1 cap BID NGT Last administered on 11/19/18 20:31; Admin Dose 1 CAP; Start 11/19/18 at 12:00 Losartan Potassium (Cozaar) 50 mg BID NGT Last administered on 11/19/18at 20:30; Admin Dose 50 MG; Start 11/19/18 at 12:00 Prednisone (Prednisone) 5 mg BID NGT Last administered on 11/19/18at 20:31; Admin Dose 5 MG; Start 11/19/18 at 12:00 Sertraline HCl (Zoloft) 25 mg DAILY NGT Last administered on 11/19/18at 14:40; Admin Dose 25 MG; Start 11/19/18 at 12:00 Nicardipine HCl 200 ml @ 50 mls/hr TITRATE IV Last administered on 11/19/18at 15:00; Admin Dose 75 MLS/HR; Start 11/19/18 at 15:00 KAROLYN HERNANDEZ M.D. Nov 19, 2018 23:47
[2018-11-20] VITALS (87 sets, daily range): BP systolic 113–169; BP diastolic 25–99; PULSE 64–102; RESP 11–41
[2018-11-20] MEDS: hydrALAzine 20 MG INJ IV PRN (01:14)
[2018-11-20] MEDS: niCARdipine-NS 0.1MG/ML DRIP 200 ML IV SCH ×3 (04:28→12:21)
[2018-11-20] MEDS: NIFEdipine 10 MG CAP NGT SCH ×3 (06:40→12:37)
[2018-11-20] MEDS: ASPIRIN 81 MG TAB NGT SCH (08:36)
[2018-11-20] MEDS: SERTRALINE 50 MG TAB NGT SCH (08:36)
[2018-11-20] MEDS: HYDROXYCHLOROQUINE 200 MG TAB NGT SCH (08:36)
[2018-11-20] MEDS: LOSARTAN 50 MG TAB NGT SCH ×2 (08:36→20:26)
[2018-11-20] MEDS: LACTOBACILLUS RHAMNOSUS CAP NGT SCH ×2 (08:37→20:24)
[2018-11-20] MEDS: predniSONE 5 MG TAB NGT SCH ×2 (08:37→20:26)
[2018-11-20] MEDS: MYCOPHENOLATE 250 MG CAP PO SCH ×2 (08:38→20:23)
[2018-11-20] MEDS ORDERED: HYDROXYCHLOROQUINE 200 MG TAB NGT SCH (09:00)
[2018-11-20] MEDS ORDERED: SERTRALINE 50 MG TAB NGT SCH (09:00)
--- NOTE | 2018-11-20 10:48 | CONS ---
[facility] HCIS Consult Follow-up Patient Name: Cynthia Mccall Unit Number: [id number] Date of : 1985 Patient Status: Admitted Inpatient Attending Doctor: Melani Hsieh Edit: KAROLYN HOWARD M.D. on 11/22/18 @ 03:02 Anita: I discussed the management with CHIEF GAUGER Logan and agree. 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: notable for R L2-3 dermatomes, but also possibly tongue and lip - varicella infections of the tongue - seizure secondary to encephalitis GI - abdominal pain and watery diarrhea, C diff was negative on 11/19/2018 - hep B virus surface antigen positive status; hep B DNA viral load was undetectable on 07/22/2018, possibly reflecting chronic HBV carrier state - h/o pancreatitis in 2018 cardiac - reportedly had code blue after admission - h/o cardiopulmonary arrest - EF 55% renal, immunological - ESRD on HD via catheter on R chest wall - lupus nephritis, on cellcept, prednisone, plaquenil pulmonary - h/o extensive bilateral lower lung consolidative changes with ground-glass consistent with likely multifocal pneumonia on CT 07/17/2018. Pt completed antibiotics (meropenem) for this on 07/28/2018 - h/o acute hypoxic resp failure, s/p intubation followed by extubation ortho, vascular - h/o eschar and crusted wound of R dorsal hand. No superficial wound culture is available to guide the antibiotic. Soft tissue TYRESE on 07/28/2018 showed 1.7 cm irregular shaped fluid collection in the soft tissues. MRI on 08/06/2018 showed suspicion of infectious myositis/fasciitis, diffuse subcutaneous edema and skin irregularity of R hand; no definite large drainable fluid collection; faint bone marrow edema noted about the carpal bones and base of the third metacarpal, which could be reactive to the soft tissue process although early osteomyelitis is not excluded. - thrombosis of R basilic and right cephalic veins, seen on TYRESE on 07/24/2018 Recommendations: - Pending: repeat hepatitis B viral load, hepatitis B eAntigen and hepatitis B eAntibody, Varicella zoster virus PCR CSF testing - Dr. Howard instructed Pt's ALTAGRACIA Mas to inquire the micro lab and send out if varicella zoster virus PCR has been added to Pt's left over CSF at 5:00 am on 11/20/2018. I spoke to the patient's RN Isela who confirmed that the lab has sent out the CSF fluid to test for varicella zoster virus PCR. - If Pt remains altered despite high dose acyclovir, we recommend another LP to get more CSF for testing - Continue renally dosed acyclovir (11/17/2018-) - Keep Pt on airborne and contact precautions until all varicella lesions are dry and crusted - On 11/18/2018 Dr. Howard advised that Pt's family members who were exposed to her varicella be tested for varicella zoster antibody, and if non-immune, to get post-exposure prophylaxis Management d/w patient, ALTAGRACIA Weiss, and with Dr. Howard. Thank you Total critical care time spent: 40 minutes. Result Diagram: 11/19/18 0455 11/19/18 0455 Results 24hrs Laboratory Tests Test 11/19/18 13:10 11/19/18 17:12 Bedside Glucose 78 93 Consultation Date/Type/Reason Admit Date/Time Nov 16, 2018 at 08:00 Initial Consult Date 11/18/18 Requesting Provider: ARTURO AMADOR MD 24 HR Interval Summary Free Text/Dictation Patient mainly nonverbal to me, shook her head "yes" re: diarrhea. Shook head "no" re: feeling of fevers, chills, sob, cp, n/v. Per d/w ALTAGRACIA Weiss, laboratory was called this morning and CSF fluid send out was done by lab for checking for the varicella zoster virus PCR. No other acute issues were reported today by nursing. Exam/Review of Systems Vital Signs Vitals Vital Signs Date Temp Pulse Resp B/P (MAP) Pulse Ox O2 O2 Flow FiO2 Time Delivery Rate 11/20/18 82 15 130/76 100 09:15 (94) 11/20/18 Room Air 09:00 11/20/18 98.2 08:00 11/18/18 21 19:32 11/17/18 2.0 04:00 Intake and Output 11/19/18 11/19/18 11/20/18 1515:00 23:00 07:00 IntakeIntake Total 645 ml 390 ml 730 ml OutputOutput Total 1500 ml 0 ml 0 ml BalanceBalance -855 ml 390 ml 730 ml Exam Constitutional: alert, frail, other (mostly nonverbal to me) Psych: other (appears to have small delayed response before responding to questions or commands.) Head: normocephalic, atraumatic Eyes: nl conjunctiva, nl lids ENMT: nl external ears & nose, nl nasal mucosa & septum, other (tongue - white circles noted) Neck: supple Respiratory: clear to auscultation, normal air movement Cardiovascular: regular rate and rhythm, nl pulses Gastrointestinal: soft, non-tender, bowel sounds (normoactive ), other (NGT with TF in process.) Musculoskeletal: nl extremities to inspection Extremities: normal pulses; No edema Neurological: lethargic Skin: nl turgor, other (Vesciles on R thigh and R back, L2-3 distribution. Left flank scattered linear blister pattern without erythema.) Medications Medications Current Medications Albumin Human 100 ml @ 100 mls/hr WITH DIALYSIS PRN IV SBP less than 90 mm Hg ; Start 11/16/18 at 12:30 Sodium Chloride (NS) -To prime the dialy... DIRECTED FOR HD PRN IV SBP less than 90 mm Hg ; Start 11/16/18 at 12:30 Hydralazine HCl (Apresoline) 20 mg Q4H PRN IV SBP more than 150 mm hg Last administered on 11/20/18at 01:14; Admin Dose 20 MG; Start 11/16/18 at 12:30 Acetaminophen (Tylenol Tab) 650 mg Q6H PRN PO PAIN LEVEL 1-3 OR FEVER; Start 11/16/18 at 13:30 Mycophenolate Mofetil (Cellcept) 1,000 mg BID PO Last administered on 11/20/18at 08:38; Admin Dose 1,000 MG; Start 11/16/18 at 14:30 Tramadol HCl (Ultram) 50 mg Q4 PRN PO severe pain Last administered on 11/17/18 12:07; Admin Dose 50 MG; Start 11/16/18 at 13:30 Heparin Sodium (Porcine) (Heparin (1000 Units/ml)) 4,500 unit AFTER DIALYSIS CATHETER Last administered on 11/19/18 13:00; Admin Dose 4,500 UNIT; Start 11/16/18 at 15:30 Diphenhydramine HCl (Benadryl) 25 mg Q6H PRN IV ITCHING Last administered on 11/17/18 04:06; Admin Dose 25 MG; Start 11/17/18 at 03:30 Acyclovir 250 mg/ Dextrose 100 ml @ 100 mls/hr Q24H IVPB Last administered on 11/19/18 20:28; Admin Dose 100 MLS/HR; Start 11/17/18 at 20:00 Lorazepam (Ativan) 2 mg Q10MIN PRN IV seizures Last administered on 11/18/18 2 1:58; Admin Dose 2 MG; Start 11/18/18 at 21:53 Aspirin (Aspirin) 81 mg DAILY NGT Last administered on 11/20/18 08:36; Admin Dose 81 MG; Start 11/19/18 at 11:30 Nifedipine (Procardia) 20 mg Q6 NGT Last administered on 11/20/18 06:40; Admin Dose 20 MG; Start 11/19/18 at 12:00 Metoprolol Tartrate (Lopressor) 5 mg Q6H PRN IV PALPITATION; Start 11/19/18 at 11:30 Carvedilol (Coreg) 50 mg Q12 NGT Last administered on 11/20/18 08:38; Admin Dose 50 MG; Start 11/19/18 at 12:00 Clonidine (Catapres) 0.1 mg BID NGT Last administered on 11/20/18 08:37; Admin Dose 0.1 MG; Start 11/19/18 at 12:00 Hydroxychloroquine Sulfate (Plaquenil) 200 mg DAILY NGT Last administered on 11/20/18 08:36; Admin Dose 200 MG; Start 11/19/18 at 12:00 Lactobacillus Acidophilus/ Rhamnosus (Culturelle) 1 cap BID NGT Last administered on 11/20/18 08:37; Admin Dose 1 CAP; Start 11/19/18 at 12:00 Losartan Potassium (Cozaar) 50 mg BID NGT Last administered on 11/20/18 08:36; Admin Dose 50 MG; Start 11/19/18 at 12:00 Prednisone (Prednisone) 5 mg BID NGT Last administered on 11/20/18 08:37; Admin Dose 5 MG; Start 11/19/18 at 12:00 Sertraline HCl (Zoloft) 25 mg DAILY NGT Last administered on 11/20/18 08:36; A dmin Dose 25 MG; Start 11/19/18 at 12:00 Nicardipine HCl 200 ml @ 50 mls/hr TITRATE IV Last administered on 11/20/18 08:54; Admin Dose 100 MLS/HR; Start 11/19/18 at 15:00 JANICE LOPEZ NP Nov 20, 2018 10:40
--- NOTE | 2018-11-20 11:51 | CONS ---
Date/Time of Note Date/Time of Note DATE: 11/20/18 TIME: 11:51 Assessment/Plan Assessment/Plan Assessment/Plan 1. 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 Seizures possibly due to encephalitis 2. Hypertensive emergency 3. ESRD on HD TTS schedule 4. H/o HTN 5. H/o HL 6. H/o Lupus 7. H/o Recent admission at [facility] for acute respiratory failure requiring intubation and ventilator care Plan; s/p Lumbar puncture, s/p ID consult, on IV acyclovir 250mg q 24 hr s/p HD yesterday, next HD will be on Tuesday and will continue pt on Tue, , tuesday schedule Nicardipine gtt for BP control, will increase Clonidine to 0.2mg NGT BID Clonidine Patch 0.2mg applied and IV metoprolol has been ordered will follow up Result Diagram: 11/19/18 0455 11/19/18 0455 Results 24hrs Laboratory Tests Test 11/19/18 13:10 11/19/18 17:12 Bedside Glucose 78 93 Consultation Date/Type/Reason Admit Date/Time Nov 16, 2018 at 08:00 Initial Consult Date 11/16/18 Type of Consult NEPHROLOGY Requesting Provider: ARTURO AMADOR MD 24 HR Interval Summary Free Text/Dictation pt remains altered, s/p ID consult, possible varicella Zoster encephalitis Exam/Review of Systems Vital Signs Vitals Vital Signs Date Temp Pulse Resp B/P (MAP) Pulse Ox O2 O2 Flow FiO2 Time Delivery Rate 11/20/18 78 20 142/82 100 11:30 (102) 11/20/18 Room Air 11:00 11/20/18 98.2 08:00 11/18/18 21 19:32 11/17/18 2.0 04:00 Intake and Output 11/19/18 11/19/18 11/20/18 1515:00 23:00 07:00 IntakeIntake Total 645 ml 390 ml 760 ml OutputOutput Total 1500 ml 0 ml 0 ml BalanceBalance -855 ml 390 ml 760 ml Exam Constitutional: confused, disoriented Psych: confusion Respiratory: congested cough, crackles/rales, diminished breath sounds Cardiovascular: regular rate and rhythm, nl pulses Gastrointestinal: soft Musculoskeletal: muscle weakness, swelling (1-2+ pitting edema ) Extremities: normal pulses Neurological: confused, lethargic, disoriented, behaving strange from her baseline Medications Medications Current Medications Albumin Human 100 ml @ 100 mls/hr WITH DIALYSIS PRN IV SBP less than 90 mm Hg ; Start 11/16/18 at 12:30 Sodium Chloride (NS) -To prime the dialy... DIRECTED FOR HD PRN IV SBP less than 90 mm Hg ; Start 11/16/18 at 12:30 Hydralazine HCl (Apresoline) 20 mg Q4H PRN IV SBP more than 150 mm hg Last administered on 11/20/18 01:14; Admin Dose 20 MG; Start 11/16/18 at 12:30 Acetaminophen (Tylenol Tab) 650 mg Q6H PRN PO PAIN LEVEL 1-3 OR FEVER; Start 11/16/18 at 13:30 Mycophenolate Mofetil (Cellcept) 1,000 mg BID PO Last administered on 11/20/18 08:38; Admin Dose 1,000 MG; Start 11/16/18 at 14:30 Tramadol HCl (Ultram) 50 mg Q4 PRN PO severe pain Last administered on 11/17 12:07; Admin Dose 50 MG; Start 11/16/18 at 13:30 Heparin Sodium (Porcine) (Heparin (1000 Units/ml)) 4,500 unit AFTER DIALYSIS CATHETER Last administered on 11/19/18 13:00; Admin Dose 4,500 UNIT; Start 11/16/18 at 15:30 Diphenhydramine HCl (Benadryl) 25 mg Q6H PRN IV ITCHING Last administered on 11/17/18 04:06; Admin Dose 25 MG; Start 11/17/18 at 03:30 Acyclovir 250 mg/ Dextrose 100 ml @ 100 mls/hr Q24H IVPB Last administered on 11/19/18 20:28; Admin Dose 100 MLS/HR; Start 11/17/18 at 20:00 Lorazepam (Ativan) 2 mg Q10MIN PRN IV seizures Last administered on 11/18/18 21:58; Admin Dose 2 MG; Start 11/18/18 at 21:53 Aspirin (Aspirin) 81 mg DAILY NGT Last administered on 11/20/18 08:36; Admin Dose 81 MG; Start 11/19/18 at 11:30 Nifedipine (Procardia) 20 mg Q6 NGT Last administered on 11/20/18 06:40; Admin Dose 20 MG; Start 11/19/18 at 12:00 Metoprolol Tartrate (Lopressor) 5 mg Q6H PRN IV PALPITATION; Start 11/19/18 at 11:30 Carvedilol (Coreg) 50 mg Q12 NGT Last administered on 11/20/18 08:38; Admin Dose 50 MG; Start 11/19/18 at 12:00 Clonidine (Catapres) 0.1 mg BID NGT Last administered on 11/20/18 08:37; Admin Dose 0.1 MG; Start 11/19/18 at 12:00 Hydroxychloroquine Sulfate (Plaquenil) 200 mg DAILY NGT Last administered on 11/20/18 08:36; Admin Dose 200 MG; Start 11/19/18 at 12:00 Lactobacillus Acidophilus/ Rhamnosus (Culturelle) 1 cap BID NGT Last admini stered on 11/20/18 08:37; Admin Dose 1 CAP; Start 11/19/18 at 12:00 Losartan Potassium (Cozaar) 50 mg BID NGT Last administered on 11/20/18 08:36; Admin Dose 50 MG; Start 11/19/18 at 12:00 Prednisone (Prednisone) 5 mg BID NGT Last administered on 11/20/18 08:37; Admin Dose 5 MG; Start 11/19/18 at 12:00 Sertraline HCl (Zoloft) 25 mg DAILY NGT Last administered on 11/20/18 08:36; Admin Dose 25 MG; Start 11/19/18 at 12:00 Nicardipine HCl 200 ml @ 50 mls/hr TITRATE IV Last administered on 11/20/18 08:54; Admin Dose 100 MLS/HR; Start 11/19/18 at 15:00 ARTURO AMADOR MD Nov 20, 2018 11:51
--- NOTE | 2018-11-20 14:58 | CONS ---
Assessment/Plan Assessment/Plan Hospital Course A: 33 yo F with hx of lupus, on immunosuppressive Tx... who presents for evaluation of ams and "low grade" temperatures. In the ED, she had a witnessed seizure, for which neurology is consulted. The clinical picture is most ominously concerning for meningoencephalitis. An acute toxic-metabolic encephalopathy is additionally considered. Stroke is less likely. CTH is without acute intracranial pathology. CSF is notable for a mild lymphocytic pleocytosis, with low glucose and elevated protein.. The first tube showed elevated reds, which raised initial concern for HSV...however, tube 4 is without red cells.. EEG is without ongoing epileptiform activity P: Await CSF HSV PCR Other infectious workup and management per ID MRI brain without contrast for further characterization when medically able Ativan IV PRN seizure > 5 min or for cluster Reorient as necessary Limit sedating medications where possible Will follow clinically Result Diagram: 11/19/18 0455 11/19/18 0455 Results 24hrs Laboratory Tests Test 11/19/18 17:12 Bedside Glucose 93 Consultation Date/Type/Reason Admit Date/Time Nov 16, 2018 at 08:00 Type of Consult Neurology Reason for Consultation ams, seizures Requesting Provider: ARTURO AMADOR MD Date/Time of Note DATE: 11/20/18 TIME: 14:58 24 HR Interval Summary Free Text/Dictation Continues critical care. Pt states that she is doing better. No acute events or complaints reported. Exam Vital Signs Vitals Vital Signs Date Temp Pulse Resp B/P (MAP) Pulse Ox O2 O2 Flow FiO2 Time Delivery Rate 11/20/18 82 12:00 11/20/18 20 142/82 100 11:30 (102) 11/20/18 Room Air 11:00 11/20/18 98.2 08:00 11/18/18 21 19:32 11/17/18 2.0 04:00 Intake and Output 11/19/18 11/19/18 11/20/18 1414:59 22:59 06:59 IntakeIntake Total 695 ml 390 ml 730 ml OutputOutput Total 1500 ml 0 ml 0 ml BalanceBalance -805 ml 390 ml 730 ml Exam PE: Gen Appearance: No Apparent Distress HEENT: Normocephalic Cardiovascular: Regular rate Abdomen: Soft Extremities: Dry NE: The patient was awake and alert, oriented to person, hospital, and year..able to follow simple commands. Cranial nerve examination was limited by mental status. Pupils were equal and reactive to light. There was no afferent pupillary defect. Funduscopic exami nation was limited. Face was grossly symmetric, w/ present corneal and cough reflexes. Tone was normal. Muscle bulk was normal. I did not see fasciculations. The patient was diffusely weak.. Coordination and gait testing was limited by mental status. Arm and leg reflexes were within normal limits and symmetric. Walsh's sign was absent. Plantar responses were flexor. ELIANA WHITLOCK NP Nov 20, 2018 14:58
--- NOTE | 2018-11-20 16:20 | CONS ---
Date/Time of Note Date/Time of Note DATE: 11/20/18 TIME: 16:19 Consult Date/Type/Reason Admit Date/Time Nov 16, 2018 at 08:00 Initial Consult Date 11/18/18 Type of Consultation: cv Requesting Provider: ARTURO AMADOR MD Subjective Cardiology follow-up progress note Subjective: Discussed with staff and telemetry was reviewed. Patient remains in normal sinus rhythm. Patient is less confused and does not complain of any chest pain or pressure to me now. Denies any palpitation or abdominal pain to me now Objective: General: no acute distress HEENT: NC/AT. pupils are equal. round. NECK: . no stridor. CV: Tachycardic. systolic murmur; no gallop or rubs. PULM: no wheezing . Mild rhonchi. GI: SOFT, NT, ND, no rebound or guarding Extremity: trace B/L LE edema. no clubbing. neuro: awake and alert responds appropriately Psych: Calm Pleasant rectal: deferred : Deferred Derm: With butterfly rash on the face as well as evidence of shingles in the right inner thigh EKG done November 16, 2018 showed normal sinus rhythm. No evidence of ischemia my personal review Echocardiogram shows: Left Ventricle: Normal left ventricular cavity size, wall thickness and systolic function. The left ventricular ejection fraction is visually estimated at 55 %. Pericardium: Small pericardial effusion. Left pleural effusion seen. IVC: Normal inferior vena cava appearance and respiratory collapse. Conclusions Normal left ventricular cavity size, wall thickness and systolic function. The left ventricular ejection fraction is visually estimated at 55 %. Small pericardial effusion. Left pleural effusion seen. Electronically Signed By: Kevin Wall 17-Nov-2018 19:31:40 Objective Vital Signs Date Temp Pulse Resp B/P (MAP) Pulse Ox O2 O2 Flow FiO2 Time Delivery Rate 11/20/18 71 13 136/74 100 15:00 (94) 11/20/18 Room Air 14:00 11/20/18 98.3 12:00 11/18/18 21 19:32 11/17/18 2.0 04:00 Intake and Output 11/19/18 11/19/18 11/20/18 1515:00 23:00 07:00 IntakeIntake Total 645 ml 390 ml 760 ml OutputOutput Total 1500 ml 0 ml 0 ml BalanceBalance -855 ml 390 ml 760 ml Results/Medications Result Diagram: 11/19/18 0455 11/19/18 0455 Results 24 hrs Laboratory Tests Test 11/19/18 17:12 Bedside Glucose 93 Medications Current Medications Albumin Human 100 ml @ 100 mls/hr WITH DIALYSIS PRN IV SBP less than 90 mm Hg ; Start 11/16/18 at 12:30 Sodium Chloride (NS) -To prime the dialy... DIRECTED FOR HD PRN IV SBP less than 90 mm Hg ; Start 11/16/18 at 12:30 Hydralazine HCl (Apresoline) 20 mg Q4H PRN IV SBP more than 150 mm hg Last administered on 11/20/18at 01:14; Admin Dose 20 MG; Start 11/16/18 at 12:30 Acetaminophen (Tylenol Tab) 650 mg Q6H PRN PO PAIN LEVEL 1-3 OR FEVER; Start 11/16/18 at 13:30 Mycophenolate Mofetil (Cellcept) 1,000 mg BID PO Last administered on 11/20/18at 08:38; Admin Dose 1,000 MG; Start 11/16/18 at 14:30 Tramadol HCl (Ultram) 50 mg Q4 PRN PO severe pain Last administered on 11/17/18at 12:07; Admin Dose 50 MG; Start 11/16/18 at 13:30 Heparin Sodium (Porcine) (Heparin (1000 Units/ml)) 4,500 unit AFTER DIALYSIS CATHETER Last administered on 11/19/18at 13:00; Admin Dose 4,500 UNIT; Start 11/16/18 at 15:30 Diphenhydramine HCl (Benadryl) 25 mg Q6H PRN IV ITCHING Last administered on 11/17/18at 04:06; Admin Dose 25 MG; Start 11/17/18 at 03:30 Acyclovir 250 mg/ Dextrose 100 ml @ 100 mls/hr Q24H IVPB Last administered on 11/19/18 20:28; Admin Dose 100 MLS/HR; Start 11/17/18 at 20:00 Lorazepam (Ativan) 2 mg Q10MIN PRN IV seizures Last administered on 11/18/18 21:58; Admin Dose 2 MG; Start 11/18/18 at 21:53 Aspirin (Aspirin) 81 mg DAILY NGT Last administered on 11/20/18 08:36; Admin Dose 81 MG; Start 11/19/18 at 11:30 Nifedipine (Procardia) 20 mg Q6 NGT Last administered on 11/20/18 12:37; Admin Dose 20 MG; Start 11/19/18 at 12:00 Metoprolol Tartrate (Lopressor) 5 mg Q6H PRN IV PALPITATION; Start 11/19/18 at 11:30 Carvedilol (Coreg) 50 mg Q12 NGT Last administered on 11/20/18 08:38; Admin Dose 50 MG; Start 11/19/18 at 12:00 Clonidine (Catapres) 0.1 mg BID NGT Last administered on 11/20/18 08:37; Admin Dose 0.1 MG; Start 11/19/18 at 12:00 Hydroxychloroquine Sulfate (Plaquenil) 200 mg DAILY NGT Last administered on 11/20/18 08:36; Admin Dose 200 MG; Start 11/19/18 at 12:00 Lactobacillus Acidophilus/ Rhamnosus (Culturelle) 1 cap BID NGT Last administered on 11/20/18 08:37; Admin Dose 1 CAP; Start 11/19/18 at 12:00 Losartan Potassium (Cozaar) 50 mg BID NGT Last administered on 11/20/18 08:36; Admin Dose 50 MG; Start 11/19/18 at 12:00 Prednisone (Prednisone) 5 mg BID NGT Last administered on 11/20/18 08:37; Admin Dose 5 MG; Start 11/19/18 at 12:00 Sertraline HCl (Zoloft) 25 mg DAILY NGT Last administered on 11/20/18 08:36; Admin Dose 25 MG; Start 11/19/18 at 12:00 Nicardipine HCl 200 ml @ 50 mls/hr TITRATE IV Last administered on 11/20/18 12:21; Admin Dose 50 MLS/HR; Start 11/19/18 at 15:00 Assessment/Plan Chief Complaint/Hosp Course 1. Hypertensive urgency 2. Encephalopathy 3. Renal failure on dialysis 4. History of lupus 5. Pericardial effusion: Appears to be small and stable at this point 6. Anemia 7. Shingles 8. Possible C. difficile Recommendations Antibiotic management and antiviral management as per internal medicine Neuro workup per internal medicine Beta-catracho orally to be given as tolerated. Hemodialysis as per renal Thank you for his referral. We will continue to follow along with you, SERGO MUNOZ MD [facility] SERGO MUNOZ MD Nov 20, 2018 16:20
--- NOTE | 2018-11-20 16:38 | PN ---
Date/Time of Note Date/Time of Note DATE: 11/20/18 TIME: 16:25 Assessment/Plan VTE Prophylaxis Risk score (from Ns)>0 risk: 1 SCD applied (from Ns): Yes Pharmacological prophylaxis: NA/contraindicated Pharm contraindication: thrombocytopenia Lines/Catheters IV Catheter Type (from Nrsg): PICC Line Central line still needed: Yes Urinary Cath still in place: No Assessment/Plan Result Diagram: 11/19/18 0455 11/19/18 0455 Results 24hrs Laboratory Tests Test 11/19/18 17:12 Bedside Glucose 93 Subjective 24 Hr Interval Summary Free Text/Dictation S: no new issues, no longer confused, still on cardene drip O: gen: calm, oriented x3, no distress, frail Head: atraumatic, normocephalic, de facies, frail, friable skin Neck: non-tender, supple Respiratory: clear to auscultation, diminished Cardiovascular: regular rate and rhythm Gastrointestinal: S/ NT / ND / +BS Extremities: no edema, good radial pulses, no more twitching skin: rash assessment and plan: 33 yo F with chronic lupus and ESRD on HD who was diagnosed with shingles 2 days ago who had returned with itching, nausea and vomiting and severely elevated blood pressures and abnormal behaviour currently managed in ICU as follows: 1. Acute encephalopathy with ?twitching versus seizures -differentials include Hypertensive encephalopathy vs HSV encephalitis vs acute CVA -improved, ?resolved -continue high dose acyclovir, appreciate ID and neuro input and help -MRI basically negative 2. Hypertensive emergency: improvec -continue Nicardipine drip, wean as tolerated. -home meds have been resumed will uptitrate to enable weaning 3. Profuse diarrhea: resolved -C-diff assay negative, 4. ESRD: -continue routine HD 5. Tachycardia: -likely SIRS, resolved, -no PE on CTA< pericardial effusion stable 6. Shingles on Valtrex therapy 7. chronic anemia 2/2 CKD: stable 8. Chronic thrombocytopenia 2/2 uremia: monitor 9. H/o depression and anxiety : on Zoloft 10. hx of lupus -continue Plaquenil, mycophenolate and prednisone 11. Hayder pleural effusions: -recurrent, has had multiple thoracentesis in the past, most recent 10/27/18 -no resp symptoms at this time -monitor and ambulate as soon as possible dispo: CC time 40mins. Exam/Review of Systems Vital Signs Vitals Vital Signs Date Temp Pulse Resp B/P (MAP) Pulse Ox O2 O2 Flow FiO2 Time Delivery Rate 11/20/18 71 13 136/74 100 15:00 (94) 11/20/18 Room Air 14:00 11/20/18 98.3 12:00 11/18/18 21 19:32 11/17/18 2.0 04:00 Intake and Output 11/19/18 11/19/18 11/20/18 1515:00 23:00 07:00 IntakeIntake Total 645 ml 390 ml 760 ml OutputOutput Total 1500 ml 0 ml 0 ml BalanceBalance -855 ml 390 ml 760 ml Medications Medications Current Medications Albumin Human 100 ml @ 100 mls/hr WITH DIALYSIS PRN IV SBP less than 90 mm Hg ; Start 11/16/18 at 12:30 Sodium Chloride (NS) -To prime the dialy... DIRECTED FOR HD PRN IV SBP less than 90 mm Hg ; Start 11/16/18 at 12:30 Hydralazine HCl (Apresoline) 20 mg Q4H PRN IV SBP more than 150 mm hg Last administered on 11/20/18at 01:14; Admin Dose 20 MG; Start 11/16/18 at 12:30 Acetaminophen (Tylenol Tab) 650 mg Q6H PRN PO PAIN LEVEL 1-3 OR FEVER; Start at 13:30 Mycophenolate Mofetil (Cellcept) 1,000 mg BID PO Last administered on 11/20/18at 08:38; Admin Dose 1,000 MG; Start 11/16/18 at 14:30 Tramadol HCl (Ultram) 50 mg Q4 PRN PO severe pain Last administered on 11/17/18at 12:07; Admin Dose 50 MG; Start 11/16/18 at 13:30 Heparin Sodium (Porcine) (Heparin (1000 Units/ml)) 4,500 unit AFTER DIALYSIS CATHETER Last administered on 11/19/18at 13:00; Admin Dose 4,500 UNIT; Start 11/16/18 at 15:30 Diphenhydramine HCl (Benadryl) 25 mg Q6H PRN IV ITCHING Last administered on 11/17/18at 04:06; Admin Dose 25 MG; Start 11/17/18 at 03:30 Acyclovir 250 mg/ Dextrose 100 ml @ 100 mls/hr Q24H IVPB Last administered on 11/19/18 20:28; Admin Dose 100 MLS/HR; Start 11/17/18 at 20:00 Lorazepam (Ativan) 2 mg Q10MIN PRN IV seizures Last administered on 11/18/18 21:58; Admin Dose 2 MG; Start 11/18/18 at 21:53 Aspirin (Aspirin) 81 mg DAILY NGT Last administered on 11/20/18 08:36; Admin Dose 81 MG; Start 11/19/18 at 11:30 Nifedipine (Procardia) 20 mg Q6 NGT Last administered on 11/20/18 12:37; Admin Dose 20 MG; Start 11/19/18 at 12:00 Metoprolol Tartrate (Lopressor) 5 mg Q6H PRN IV PALPITATION; Start 11/19/18 at 11:30 Carvedilol (Coreg) 50 mg Q12 NGT Last administered on 11/20/18 08:38; Admin Dose 50 MG; Start 11/19/18 at 12:00 Clonidine (Catapres) 0.1 mg BID NGT Last administered on 11/20/18 08:37; Admin Dose 0.1 MG; Start 11/19/18 at 12:00 Hydroxychloroquine Sulfate (Plaquenil) 200 mg DAILY NGT Last administered on 11/20/18 08:36; Admin Dose 200 MG; Start 11/19/18 at 12:00 Lactobacillus Acidophilus/ Rhamnosus (Culturelle) 1 cap BID NGT Last administered on 11/20/18 08:37; Admin Dose 1 CAP; Start 11/19/18 at 12:00 Losartan Potassium (Cozaar) 50 mg BID NGT Last administered on 11/20/18 08:36; Admin Dose 50 MG; Start 11/19/18 at 12:00 Prednisone (Prednisone) 5 mg BID NGT Last administered on 11/20/18 08:37; Admin Dose 5 MG; Start 11/19/18 at 12:00 Sertraline HCl (Zoloft) 25 mg DAILY NGT Last administered on 11/20/18 08:36; Admin Dose 25 MG; Start 11/19/18 at 12:00 Nicardipine HCl 200 ml @ 50 mls/hr TITRATE IV Last administered on 11/20/18at 12:21; Admin Dose 50 MLS/HR; Start 11/19/18 at 15:00 FARHAD LEZAMA Nov 20, 2018 16:35
[2018-11-20] MEDS ORDERED: hydrALAzine 20 MG INJ IV PRN (17:00)
[2018-11-20] MEDS: NIFEdipine 10 MG CAP PO SCH ×2 (18:27→20:26)
[2018-11-20] MEDS: DIPHENHYDRAMINE 50 MG INJ IV PRN (18:39)
--- NOTE | 2018-11-20 18:59 | NUR ---
EOSS: Patient lying comfortably in bed. Family at bedside and updated on patients status. Patient AO4 on room air. Nicardipine turned off at 1330 and remained off for rest of shift. No other incidents occurred. All care performed according to MD order. VSS. Will report off to PM RN. Addendum: 11/20/18 at 1912 by MARLENY AMADOR RN Yoni called for HD on 11/21 at 0700. Reference number [id number]
[2018-11-20] MEDS: ACYCLOVIR IVPB SCH (20:23)
[2018-11-20] MEDS: DEXTROSE 5% IVPB SCH (20:23)
[2018-11-21] VITALS (40 sets, daily range): BP systolic 100–166; BP diastolic 62–98; PULSE 58–93; RESP 8–23
[2018-11-21] MEDS: DIPHENHYDRAMINE 50 MG INJ IV PRN (00:29)
[2018-11-21] MEDS: NIFEdipine 10 MG CAP PO SCH ×6 (00:30→23:08)
--- NOTE | 2018-11-21 01:38 | NUR ---
HOD#6 hypertensive encephalopathy, shingles pt remains in appropriate isolation, afebrile, VSS. cardene has been off for over 12 hours now. c/o mild, generalized pain. . meds given via dubhoff as speech eval did not see pt 11/20/18 a&o x4 with some signs of impulsivity. changes positions frequently -- no skin breakdown noted. medicated per eMAR with side effects discussed. call light within reach. ROM activities as tolerated. will continue to monitor closely. anuric -- HD slated for this AM
[2018-11-21] MEDS: traMADol 50 MG TAB PO PRN ×2 (02:27→23:08)
--- NOTE | 2018-11-21 09:11 | PN ---
Date/Time of Note Date/Time of Note DATE: 11/21/18 TIME: 09:02 Assessment/Plan VTE Prophylaxis Risk score (from Nsg)>0 risk: 16 SCD applied (from Nsg): Yes Pharmacological prophylaxis: heparin Lines/Catheters IV Catheter Type (from Nrsg): PICC Line Central line still needed: Yes Urinary Cath still in place: No Assessment/Plan Result Diagram: 11/19/185 11/19/18454 Subjective 24 Hr Interval Summary Free Text/Dictation S: continues to do well, off cardene drip since yesterday O: gen: calm, oriented x3, no distress, frail Head: atraumatic, normocephalic, de facies, frail, friable skin Neck: non-tender, supple Respiratory: clear to auscultation, diminished Cardiovascular: regular rate and rhythm Gastrointestinal: S/ NT / ND / +BS Extremities: no edema, good radial pulses, no more twitching skin: rash assessment and plan: 33 yo F with chronic lupus and ESRD on HD who was diagnosed with shingles 2 days ago who had returned with itching, nausea and vomiting and severely elevated blood pressures and abnormal behavior currently managed as follows: 1. Acute encephalopathy with ?twitching versus seizures: resolved -differentials include Hypertensive encephalopathy vs HSV encephalitis, -HSV PCR in CSF still pending, -continue high dose acyclovir, appreciate ID and neuro input and help -MRI basically negative 2. Hypertensive emergency: resolved -Nicardipine GTT dced, continue oral meds and titrate as indicated 3. Profuse diarrhea: resolved -C-diff assay negative, 4. ESRD: -continue routine HD 5. Tachycardia:resolved, -likely SIRS, -no PE on CTA< pericardial effusion stable 6. Shingles on Valtrex therapy 7. chronic anemia 2/2 CKD: stable 8. Chronic thrombocytopenia 2/2 uremia: monitor 9. H/o depression and anxiety : on Zoloft 10. hx of lupus -continue Plaquenil, mycophenolate and prednisone 11. Hayder pleural effusions: -recurrent, has had multiple thoracentesis in the past, most recent 10/27/18 -no resp symptoms at this time -monitor and ambulate as soon as possible dispo: -Transfer to [facility] -start soft diet -PT eval -planned for HD today CC time 35mins. Exam/Review of Systems Vital Signs Vitals Vital Signs Date Temp Pulse Resp B/P (MAP) Pulse Ox O2 O2 Flow FiO2 Time Delivery Rate 11/21/18 65 11 133/83 100 06:30 (100) 11/21/18 98.0 04:00 11/21/18 Room Air 00:00 11/18/18 21 19:32 Intake and Output 11/20/18 11/20/18 11/21/18 1515:00 23:00 07:00 IntakeIntake Total 865 ml 410 ml 340 ml OutputOutput Total 0 ml BalanceBalance 865 ml 410 ml 340 ml Medications Medications Current Medications Albumin Human 100 ml @ 100 mls/hr WITH DIALYSIS PRN IV SBP less than 90 mm Hg ; Start 11/16/18 at 12:30 Sodium Chloride (NS) -To prime the dialy... DIRECTED FOR HD PRN IV SBP less than 90 mm Hg ; Start 11/16/18 at 12:30 Acetaminophen (Tylenol Tab) 650 mg Q6H PRN PO PAIN LEVEL 1-3 OR FEVER; Start 11/16/18 at 13:30 Mycophenolate Mofetil (Cellcept) 1,000 mg BID PO Last administered on 11/20/18at 20:23; Admin Dose 1,000 MG; Start 11/16/18 at 14:30 Heparin Sodium (Porcine) (Heparin (1000 Units/ml)) 4,500 unit AFTER DIALYSIS CATHETER Last administered on 11/19/18at 13:00; Admin Dose 4,500 UNIT; Start 11/16/18 at 15:30 Diphenhydramine HCl (Benadryl) 25 mg Q6H PRN IV ITCHING Last administered on 11/21/18at 00:29; Admin Dose 25 MG; Start 11/17/18 at 03:30 Acyclovir 250 mg/ Dextrose 100 ml @ 100 mls/hr Q24H IVPB Last administered on 11/20/18at 20:23; Admin Dose 100 MLS/HR; Start 11/17/18 at 20:00 Lorazepam (Ativan) 2 mg Q10MIN PRN IV seizures Last administered on 11/18/18 21:58; Admin Dose 2 MG; Start 11/18/18 at 21:53 Aspirin (Aspirin) 81 mg DAILY NGT Last administered on 11/20/18at 08:36; Admin Dose 81 MG; Start 11/19/18 at 11:30 Metoprolol Tartrate (Lopressor) 5 mg Q6H PRN IV PALPITATION; Start 11/19/18 at 11:30 Carvedilol (Coreg) 50 mg Q12 NGT Last administered on 11/20/18 20:25; Admin Dose 50 MG; Start 11/19/18 at 12:00 Hydroxychloroquine Sulfate (Plaquenil) 200 mg DAILY NGT Last administered on 11/20/18 08:36; Admin Dose 200 MG; Start 11/19/18 at 12:00 Lactobacillus Acidophilus/ Rhamnosus (Culturelle) 1 cap BID NGT Last administ ered on 11/20/18 20:24; Admin Dose 1 CAP; Start 11/19/18 at 12:00 Losartan Potassium (Cozaar) 50 mg BID NGT Last administered on 11/20/18 20:26; Admin Dose 50 MG; Start 11/19/18 at 12:00 Prednisone (Prednisone) 5 mg BID NGT Last administered on 11/20/18 20:26; Admin Dose 5 MG; Start 11/19/18 at 12:00 Sertraline HCl (Zoloft) 25 mg DAILY NGT Last administered on 11/20/18 08:36; Admin Dose 25 MG; Start 11/19/18 at 12:00 Nicardipine HCl 200 ml @ 50 mls/hr TITRATE IV Last administered on 11/20/18 12:21; Admin Dose 50 MLS/HR; Start 11/19/18 at 15:00 Tramadol HCl (Ultram) 25 mg Q4 PRN PO severe pain Last administered on 11/21/18 02:27; Admin Dose 25 MG; Start 11/20/18 at 17:00 Nifedipine (Procardia) 20 mg Q4H PO Last administered on 11/21/18 05:30; Admin Dose 20 MG; Start 11/20/18 at 17:00 Hydralazine HCl (Apresoline) 10 mg Q6H PRN IV sbp >160mmhg; Start 11/20/18 at 17:00 Clonidine (Catapres) 0.2 mg BID NGT Last administered on 11/20/18 20:30; Admin Dose 0.2 MG; Start 11/20/18 at 21:00 FARHAD LEZAMA Nov 21, 2018 09:11
[2018-11-21] MEDS: ASPIRIN 81 MG TAB NGT SCH (09:57)
[2018-11-21] MEDS: predniSONE 5 MG TAB NGT SCH ×2 (09:57→23:07)
[2018-11-21] MEDS: MYCOPHENOLATE 250 MG CAP PO SCH ×2 (09:57→23:07)
[2018-11-21] MEDS: LACTOBACILLUS RHAMNOSUS CAP NGT SCH ×2 (09:57→23:08)
[2018-11-21] MEDS: LOSARTAN 50 MG TAB NGT SCH ×2 (09:57→23:08)
[2018-11-21] MEDS: SERTRALINE 50 MG TAB NGT SCH (09:58)
--- NOTE | 2018-11-21 10:27 | NUR ---
ST NOTE: Pt is a 33-year-old female who has had previous multiple admissions. pt admitted sec. to HTN She has a history of lupus and end-stage renal disease on hemodialysis. Pt presented to ER sec. to rash with blisters. Pt recently diagnosed with Shingles. PAST MEDICAL HISTORY: 1. Lupus. 2. End-stage renal disease on hemodialysis. 3. Hypertension. 4. Chronic depression. 5. 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 I say this because the last time the patient was in the hospital, she was constantly requesting intravenous Benadryl as well as intravenous Ativan. She even underwent ____ episode of respiratory distress and had to be intubated due to fluid overload at that time. PAST SURGICAL HISTORY: Includes dialysis access placement and a . dental status; permanent upper/lower dentition; oxygen: pt on room air CXR:Cardiomegaly with mild hilar congestion unchanged.. MRI: Right demonstrates no acute pathology. There is mild generalized volume loss with minimal microvascular changes. Single focus of susceptibility artifact is seen within the right cerebellar hemisphere representing the calcification seen on CT. pt afebrile premorbid diet;reg/thin current diet; NPO with NG tube feeds pt seen at bedside; weak but able to protrude tongue;lateralize; speech clear and fluent; thin liquids via cup no difficulty; coughing with thin straws; inconsistent suspect pen. not asp. no difficulty with puree; soft solids; no diff. reg. solid needed liquid wash to clear rec. start soft diet;thin liquids; advance as tolerated; st to follow 1-2 times to ensure safe tolerance for rec. diet; pt educated; discussed with ALTAGRACIA Pena
[2018-11-21] MEDS: HYDROXYCHLOROQUINE 200 MG TAB NGT SCH (11:11)
[2018-11-21] MEDS: clonAZEPAM 0.5 MG TAB PO SCH ×2 (11:11→23:06)
--- NOTE | 2018-11-21 11:58 | CONS ---
Assessment/Plan Assessment/Plan Assessment/Plan 1. 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 Seizures possibly due to encephalitis 2. Hypertensive emergency 3. ESRD on HD TTS schedule 4. H/o HTN 5. H/o HL 6. H/o Lupus 7. H/o Recent admission at [facility] for acute respiratory failure requiring intubation and ventilator care Plan; more alert today, Na dropped to 127, plan for HD today, on isolation, improving BP control on IV acyclovir 250mg q 24 hr ID following, VZV PCR on [employer] pending plan for Hd today, will continue pt on Tue, , tuesday schedule Nicardipine gtt for BP control, Clonidine to 0.2mg NGT BID will follow up Result Diagram: 11/19/18 0455 11/19/18 0455 Results 24hrs Laboratory Tests Test 11/21/18 09:28 11/21/18 10:03 Magnesium Level 2.1 Hepatitis B Surface Antigen NEGATIVE Consultation Date/Type/Reason Admit Date/Time Nov 16, 2018 at 08:00 Initial Consult Date 11/16/18 Type of Consult NEPHROLOGY Requesting Provider: ARTURO AMADOR MD 24 HR Interval Summary Free Text/Dictation more alert today, Na dropped to 127, plan for HD today, on isolation, improving BP control Exam/Review of Systems Vital Signs Vitals Vital Signs Date Temp Pulse Resp B/P (MAP) Pulse Ox O2 O2 Flow FiO2 Time Delivery Rate 11/21/18 70 16 164/97 100 Room Air 10:00 (119) 11/21/18 97.7 08:00 11/18/18 21 19:32 Intake and Output 11/20/18 11/20/18 11/21/18 1515:00 23:00 07:00 IntakeIntake Total 865 ml 410 ml 400 ml OutputOutput Total 0 ml 0 ml BalanceBalance 865 ml 410 ml 400 ml Exam Constitutional: more alert, awake, on isolation Psych: confusion Respiratory: congested cough, crackles/rales, diminished breath sounds Cardiovascular: regular rate and rhythm, nl pulses Gastrointestinal: soft Musculoskeletal: muscle weakness, swelling (1-2+ pitting edema ) Extremities: normal pulses Neurological: more awake, alert Medications Medications Current Medications Albumin Human 100 ml @ 100 mls/hr WITH DIALYSIS PRN IV SBP less than 90 mm Hg ; Start 11/16/18 at 12:30 Sodium Chloride (NS) -To prime the dialy... DIRECTED FOR HD PRN IV SBP less than 90 mm Hg ; Start 11/16/18 at 12:30 Acetaminophen (Tylenol Tab) 650 mg Q6H PRN PO PAIN LEVEL 1-3 OR FEVER; Start 11/16/18 at 13:30 Mycophenolate Mofetil (Cellcept) 1,000 mg BID PO Last administered on 11/21/18 09:57; Admin Dose 1,000 MG; Start 11/16/18 at 14:30 Heparin Sodium (Porcine) (Heparin (1000 Units/ml)) 4,500 unit AFTER DIALYSIS CATHETER Last administered on 11/19/18 13:00; Admin Dose 4,500 UNIT; Start 11/16/18 at 15:30 Acyclovir 250 mg/ Dextrose 100 ml @ 100 mls/hr Q24H IVPB Last administered on 11/20/18 20:23; Admin Dose 100 MLS/HR; Start 11/17/18 at 20:00 Aspirin (Aspirin) 81 mg DAILY NGT Last administered on 11/21/18 09:57; Admin Dose 81 MG; Start 11/19/18 at 11:30 Carvedilol (Coreg) 50 mg Q12 NGT Last administered on 11/21/18 09:56; Admin Dose 50 MG; Start 11/19/18 at 12:00 Hydroxychloroquine Sulfate (Plaquenil) 200 mg DAILY NGT Last administered on 11/21/18at 11:11; Admin Dose 200 MG; Start 11/19/18 at 12:00 Lactobacillus Acidophilus/ Rhamnosus (Culturelle) 1 cap BID NGT Last administered on 11/21/18 09:57; Admin Dose 1 CAP; Start 11/19/18 at 12:00 Losartan Potassium (Cozaar) 50 mg BID NGT Last administered on 11/21/18 09:57; Admin Dose 50 MG; Start 11/19/18 at 12:00 Prednisone (Prednisone) 5 mg BID NGT Last administered on 11/21/18 09:57; Admin Dose 5 MG; Start 11/19/18 at 12:00 Sertraline HCl (Zoloft) 25 mg DAILY NGT Last administered on 11/21/18 09:58; Admin Dose 25 MG; Start 11/19/18 at 12:00 Tramadol HCl (Ultram) 25 mg Q4 PRN PO severe pain Last administered on 11/21/18at 02:27; Admin Dose 25 MG; Start 11/20/18 at 17:00 Nifedipine (Procardia) 20 mg Q4H PO Last administered on 11/21/18at 09:56; Admin Dose 20 MG; Start 11/20/18 at 17:00 Hydralazine HCl (Apresoline) 10 mg Q6H PRN IV sbp >160mmhg; Start 11/20/18 at 17:00 Clonidine (Catapres) 0.2 mg BID NGT Last administered on 11/21/18at 09:57; Admin Dose 0.2 MG; Start 11/20/18 at 21:00 Clonazepam (Klonopin) 0.5 mg Q12 PO Last administered on 11/21/18at 11:11; Admin Dose 0.5 MG; Start 11/21/18 at 09:30 Date/Time of Note Date/Time of Note DATE: 11/21/18 TIME: 11:58 ARTURO AMADOR MD Nov 21, 2018 11:58
--- NOTE | 2018-11-21 12:07 | CONS ---
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: notable for R L2-3 dermatomes, but also possibly tongue and lip - varicella infections of the tongue - seizure secondary to encephalitis GI - abdominal pain and watery diarrhea, C diff was negative on 11/19/2018 - hep B virus surface antigen positive status; hep B DNA viral load was undetectable on 07/22/2018, possibly reflecting chronic HBV carrier state - h/o pancreatitis in 2018 cardiac - reportedly had code blue after admission - h/o cardiopulmonary arrest - EF 55% renal, immunological - ESRD on HD via catheter on R chest wall - lupus nephritis, on cellcept, prednisone, plaquenil pulmonary - h/o extensive bilateral lower lung consolidative changes with ground-glass consistent with likely multifocal pneumonia on CT 07/17/2018. Pt completed antibiotics (meropenem) for this on 07/28/2018 - h/o acute hypoxic resp failure, s/p intubation followed by extubation ortho, vascular - h/o eschar and crusted wound of R dorsal hand. No superficial wound culture is available to guide the antibiotic. Soft tissue TYRESE on 07/28/2018 showed 1.7 cm irregular shaped fluid collection in the soft tissues. MRI on 08/06/2018 showed suspicion of infectious myositis/fasciitis, diffuse subcutaneous edema and skin irregularity of R hand; no definite large drainable fluid collection; faint bone marrow edema noted about the carpal bones and base of the third metacarpal, which could be reactive to the soft tissue process although early osteomyelitis is not excluded. - thrombosis of R basilic and right cephalic veins, seen on TYRESE on 07/24/2018 Recommendations: - awaiting repeat hepatitis B viral load, hepatitis B eAntigen and hepatitis B eAntibody, Varicella zoster virus PCR CSF testing - Dr. Howard instructed Pt's RN Chace to inquire the micro lab and send out if varicella zoster virus PCR has been added to Pt's left over CSF at 5:00 am on 11/20/2018. MAURICIO Benítez spoke to the patient's RN Isela who confirmed that the lab has sent out the CSF fluid to test for varicella zoster virus PCR. - If Pt remains altered despite high dose acyclovir, we recommend another LP to get more CSF for testing - Continue renally dosed acyclovir (11/17/2018-) for now - monitor crcl closely - Keep Pt on airborne and contact precautions until all varicella lesions are dry and crusted - On 11/18/2018 Dr. Howard advised that Pt's family members who were exposed to her varicella be tested for varicella zoster antibody, and if non-immune, to get post-exposure prophylaxis Result Diagram: 11/19/18 0455 11/19/18 0455 Results 24hrs Laboratory Tests Test 11/21/18 09:28 11/21/18 10:03 Magnesium Level 2.1 Hepatitis B Surface Antigen NEGATIVE Consultation Date/Type/Reason Admit Date/Time Nov 16, 2018 at 08:00 Initial Consult Date 11/18/18 Requesting Provider: ARTURO AMADOR MD 24 HR Interval Summary Free Text/Dictation d/w Dr. Hsieh. d/w nursing. much more awake and alert today. care coordinated Exam/Review of Systems Vital Signs Vitals Vital Signs Date Temp Pulse Resp B/P (MAP) Pulse Ox O2 O2 Flow FiO2 Time Delivery Rate 11/21/18 70 16 164/97 100 Room Air 10:00 (119) 11/21/18 97.7 08:00 11/18/18 21 19:32 Intake and Output 11/20/18 11/20/18 11/21/18 1515:00 23:00 07:00 IntakeIntake Total 865 ml 410 ml 400 ml OutputOutput Total 0 ml 0 ml BalanceBalance 865 ml 410 ml 400 ml Exam Constitutional: alert, oriented Head: normocephalic, atraumatic Eyes: EOMI Respiratory: clear to auscultation Cardiovascular: regular rate and rhythm Gastrointestinal: soft Medications Medications Current Medications Albumin Human 100 ml @ 100 mls/hr WITH DIALYSIS PRN IV SBP less than 90 mm Hg ; Start 11/16/18 at 12:30 Sodium Chloride (NS) -To prime the dialy... DIRECTED FOR HD PRN IV SBP less than 90 mm Hg ; Start 11/16/18 at 12:30 Acetaminophen (Tylenol Tab) 650 mg Q6H PRN PO PAIN LEVEL 1-3 OR FEVER; Start 11/16/18 at 13:30 Mycophenolate Mofetil (Cellcept) 1,000 mg BID PO Last administered on 11/21/18at 09:57; Admin Dose 1,000 MG; Start 11/16/18 at 14:30 Heparin Sodium (Porcine) (Heparin (1000 Units/ml)) 4,500 unit AFTER DIALYSIS CATHETER Last administered on 11/19/18 13:00; Admin Dose 4,500 UNIT; Start 11/16/18 at 15:30 Acyclovir 250 mg/ Dextrose 100 ml @ 100 mls/hr Q24H IVPB Last administered on 11/20/18 20:23; Admin Dose 100 MLS/HR; Start 11/17/18 at 20:00 Aspirin (Aspirin) 81 mg DAILY NGT Last administered on 11/21/18 09:57; Admin Dose 81 MG; Start 11/19/18 at 11:30 Carvedilol (Coreg) 50 mg Q12 NGT Last administered on 11/21/18 09:56; Admin Dose 50 MG; Start 11/19/18 at 12:00 Hydroxychloroquine Sulfate (Plaquenil) 200 mg DAILY NGT Last administered on 11/21/18 11:11; Admin Dose 200 MG; Start 11/19/18 at 12:00 Lactobacillus Acidophilus/ Rhamnosus (Culturelle) 1 cap BID NGT Last administered on 11/21/18 09:57; Admin Dose 1 CAP; Start 11/19/18 at 12:00 Losartan Potassium (Cozaar) 50 mg BID NGT Last administered on 11/21/18 09:57; Admin Dose 50 MG; Start 11/19/18 at 12:00 Prednisone (Prednisone) 5 mg BID NGT Last administered on 11/21/18 09:57; Admin Dose 5 MG; Start 11/19/18 at 12:00 Sertraline HCl (Zoloft) 25 mg DAILY NGT Last administered on 11/21/18 09:58; Admin Dose 25 MG; Start 11/19/18 at 12:00 Tramadol HCl (Ultram) 25 mg Q4 PRN PO severe pain Last administered on 11/21/18 02:27; Admin Dose 25 MG; Start 11/20/18 at 17:00 Nifedipine (Procardia) 20 mg Q4H PO Last administered on 11/21/18 09:56; Admin Dose 20 MG; Start 11/20/18 at 17:00 Hydralazine HCl (Apresoline) 10 mg Q6H PRN IV sbp >160mmhg; Start 11/20/18 at 17:00 Clonidine (Catapres) 0.2 mg BID NGT Last administered on 11/21/18at 09:57; Admin Dose 0.2 MG; Start 11/20/18 at 21:00 Clonazepam (Klonopin) 0.5 mg Q12 PO Last administered on 11/21/18at 11:11; Admin Dose 0.5 MG; Start 11/21/18 at 09:30 Date/Time of Note Date/Time of Note DATE: 11/21/18 TIME: 12:05 BETTY OLIVARES MD Nov 21, 2018 12:07
--- NOTE | 2018-11-21 15:23 | CONS ---
Assessment/Plan Assessment/Plan Hospital Course A: 33 yo F with hx of lupus, on immunosuppressive Tx... who presents for evaluation of ams and "low grade" temperatures. In the ED, she had a witnessed seizure, for which neurology is consulted. The clinical picture is most ominously concerning for meningoencephalitis. An acute toxic-metabolic encephalopathy is additionally considered. Stroke is less likely. CTH is without acute intracranial pathology. CSF is notable for a mild lymphocytic pleocytosis, with low glucose and elevated protein.. The first tube showed elevated reds, which raised initial concern for HSV...however, tube 4 is without red cells.. EEG is without ongoing epileptiform activity P: Await CSF HSV PCR Other infectious workup and management per ID MRI brain without contrast for further characterization when medically able Ativan IV PRN seizure > 5 min or for cluster Reorient as necessary Limit sedating medications where possible Will follow clinically Result Diagram: 11/19/18 0455 11/19/18 0455 Results 24hrs Laboratory Tests Test 11/21/18 09:28 11/21/18 10:03 Magnesium Level 2.1 Hepatitis B Surface Antigen NEGATIVE Consultation Date/Type/Reason Admit Date/Time Nov 16, 2018 at 08:00 Type of Consult Neurology Reason for Consultation ams, seizures Requesting Provider: ARTURO AMADOR MD Date/Time of Note DATE: 11/21/18 TIME: 15:23 24 HR Interval Summary Free Text/Dictation Continues critical care. Pt reportedly anxious today. Otherwise no acute events reported. Exam Vital Signs Vitals Vital Signs Date Temp Pulse Resp B/P (MAP) Pulse Ox O2 O2 Flow FiO2 Time Delivery Rate 11/21/18 66 13 109/72 100 Room Air 15:00 (84) 11/21/18 97.9 12:00 11/18/18 21 19:32 Intake and Output 11/20/18 11/20/18 11/21/18 1515:00 23:00 07:00 IntakeIntake Total 865 ml 410 ml 400 ml OutputOutput Total 0 ml 0 ml BalanceBalance 865 ml 410 ml 400 ml Exam PE: Gen Appearance: Appears upset HEENT: Normocephalic Cardiovascular: Regular rate Abdomen: Soft Extremities: Dry NE: The patient was awake and alert, oriented to person, hospital, and year..able to follow simple commands. Cranial nerve examination was limited by mental status. Pupils were equal and reactive to light. There was no afferent pupillary defect. Funduscopic examination was limited. Face was grossly symmetric, w/ present corneal and cough reflexes. Tone was normal. Muscle bulk was normal. I did not see fasciculations. The patient was diffusely weak.. Coordination and gait testing was limited by mental status. Arm and leg reflexes were within normal limits and symmetric. Walsh's sign was absent. Plantar responses were flexor. ELIANA WHITLOCK NP Nov 21, 2018 15:23
--- NOTE | 2018-11-21 20:30 | CONS ---
Date/Time of Note Date/Time of Note DATE: 11/21/18 TIME: 20:29 Consult Date/Type/Reason Admit Date/Time Nov 16, 2018 at 08:00 Initial Consult Date 11/18/18 Type of Consultation: cv Requesting Provider: ARTURO AMADOR MD Subjective Cardiology follow-up progress note Subjective: Discussed with staff and telemetry was reviewed. Patient remains in normal sinus rhythm. Patient with no complain of any chest pain or pressure to me now. pt is isolation still. getting HD now Objective: General: no acute distress HEENT: NC/AT. pupils are equal. round. NECK: . no stridor. CV: Tachycardic. systolic murmur; no gallop or rubs. PULM: no wheezing . Mild rhonchi. GI: SOFT, NT, ND, no rebound or guarding Extremity: trace B/L LE edema. no clubbing. neuro: Comfortably sleeping now Psych: Calm Pleasant rectal: deferred : Deferred Derm: With butterfly rash on the face as well as evidence of shingles in the right inner thigh EKG done November 16, 2018 showed normal sinus rhythm. No evidence of ischemia my personal review Echocardiogram shows: Left Ventricle: Normal left ventricular cavity size, wall thickness and systolic function. The left ventricular ejection fraction is visually estimated at 55 %. Pericardium: Small pericardial effusion. Left pleural effusion seen. IVC: Normal inferior vena cava appearance and respiratory collapse. Conclusions Normal left ventricular cavity size, wall thickness and systolic function. The left ventricular ejection fraction is visually estimated at 55 %. Small pericardial effusion. Left pleural effusion seen. Electronically Signed By: Kevin Wall 17-Nov-2018 19:31:40 Objective Vital Signs Date Temp Pulse Resp B/P (MAP) Pulse Ox O2 O2 Flow FiO2 Time Delivery Rate 11/21/18 63 10 103/62 100 Room Air 19:00 (76) 11/21/18 97.7 16:00 11/18/18 21 19:32 Intake and Output 11/20/18 11/20/18 11/21/18 1515:00 23:00 07:00 IntakeIntake Total 865 ml 410 ml 400 ml OutputOutput Total 0 ml 0 ml BalanceBalance 865 ml 410 ml 400 ml Results/Medications Result Diagram: 11/21/18 1537 11/21/18 1616 Results 24 hrs Laboratory Tests Test 1/22/19 09:28 11/21/18 10:03 11/21/18 15:37 11/21/18 16:16 Magnesium Level 2.1 2.1 Hepatitis B Surface NEGATIVE Antigen White Blood Count 4.3 #L Red Blood Count 2.26 #L Hemoglobin 7.0 #L Hematocrit 22.6 #L Mean Corpuscular 100.0 Volume Mean Corpuscular 31.0 Hemoglobin Mean Corpuscular 31.0 L Hemoglobin Concent Red Cell 17.1 H Distribution Width Platelet Count 116 #L Mean Platelet Volume 11.6 H Immature 0.700 H Granulocytes % Neutrophils % 65.2 Lymphocytes % 23.7 Monocytes % 9.7 Eosinophils % 0.5 Basophils % 0.2 Nucleated Red Blood 0.5 H Cells % Immature 0.030 Granulocytes # Neutrophils # 2.8 Lymphocytes # 1.0 Monocytes # 0.4 Eosinophils # 0.0 Basophils # 0.0 Nucleated Red Blood 0.0 Cells # Sodium Level 127 L Potassium Level 5.1 Chloride Level 90 L Carbon Dioxide Level 25 Anion Gap 12 Blood Urea Nitrogen 35 H Creatinine 5.68 H Est Glomerular 9 L Filtrat Rate mL/min Glucose Level 109 Calcium Level 8.4 Phosphorus Level 6.6 H Medications Current Medications Albumin Human 100 ml @ 100 mls/hr WITH DIALYSIS PRN IV SBP less than 90 mm Hg ; Start 11/16/18 at 12:30 Sodium Chloride (NS) -To prime the dialy... DIRECTED FOR HD PRN IV SBP less than 90 mm Hg ; Start 11/16/18 at 12:30 Acetaminophen (Tylenol Tab) 650 mg Q6H PRN PO PAIN LEVEL 1-3 OR FEVER; Start 11/16/18 at 13:30 Mycophenolate Mofetil (Cellcept) 1,000 mg BID PO Last administered on 11/21/18at 09:57; Admin Dose 1,000 MG; Start 11/16/18 at 14:30 Heparin Sodium (Porcine) (Heparin (1000 Units/ml)) 4,500 unit AFTER DIALYSIS CATHETER Last administered on 11/19/18at 13:00; Admin Dose 4,500 UNIT; Start 11/16/18 at 15:30 Acyclovir 250 mg/ Dextrose 100 ml @ 100 mls/hr Q24H IVPB Last administered on 11/20/18at 20:23; Admin Dose 100 MLS/HR; Start 11/17/18 at 20:00 Aspirin (Aspirin) 81 mg DAILY NGT Last administered on 11/21/18 09:57; Admin Dose 81 MG; Start 11/19/18 at 11:30 Carvedilol (Coreg) 50 mg Q12 NGT Last administered on 11/21/18 09:56; Admin Dose 50 MG; Start 11/19/18 at 12:00 Hydroxychloroquine Sulfate (Plaquenil) 200 mg DAILY NGT Last administered on 11/21/18 11:11; Admin Dose 200 MG; Start 11/19/18 at 12:00 Lactobacillus Acidophilus/ Rhamnosus (Culturelle) 1 cap BID NGT Last administered on 11/21/18 09:57; Admin Dose 1 CAP; Start 11/19/18 at 12:00 Losartan Potassium (Cozaar) 50 mg BID NGT Last administered on 11/21/18 09:57; Admin Dose 50 MG; Start 11/19/18 at 12:00 Prednisone (Prednisone) 5 mg BID NGT Last administered on 11/21/18 09:57; Admin Dose 5 MG; Start 11/19/18 at 12:00 Sertraline HCl (Zoloft) 25 mg DAILY NGT Last administered on 11/21/18 09:58; Admin Dose 25 MG; Start 11/19/18 at 12:00 Tramadol HCl (Ultram) 25 mg Q4 PRN PO severe pain Last administered on 02:27; Admin Dose 25 MG; Start 11/20/18 at 17:00 Nifedipine (Procardia) 20 mg Q4H PO Last administered on 11/21/18 17:52; Admin Dose 20 MG; Start 11/20/18 at 17:00 Hydralazine HCl (Apresoline) 10 mg Q6H PRN IV sbp >160mmhg; Start 11/20/18 at 17:00 Clonidine (Catapres) 0.2 mg BID NGT Last administered on 11/21/18 09:57; Admin Dose 0.2 MG; Start 11/20/18 at 21:00 Clonazepam (Klonopin) 0.5 mg Q12 PO Last administered on 11/21/18 11:11; Admin Dose 0.5 MG; Start 11/21/18 at 09:30 Assessment/Plan Chief Complaint/Hosp Course 1. Hypertensive urgency 2. Encephalopathy 3. Renal failure on dialysis 4. History of lupus 5. Pericardial effusion: Appears to be small and stable at this point 6. Anemia 7. Shingles 8. Possible C. difficile Recommendations Antibiotic management and antiviral management as per internal medicine Neuro workup per internal medicine/and neurology consultants Beta-catracho orally to be given as tolerated. Hemodialysis as per renal Transfusions as needed Thank you for his referral. We will continue to follow along with you, SERGO MUNOZ MD [facility] SERGO MUNOZ MD Nov 21, 2018 20:30
--- NOTE | 2018-11-21 20:35 | NUR ---
Hold all other medications till HD completed
--- NOTE | 2018-11-21 20:37 | NUR ---
Hemodialysis in process . Pharmacist advised to hold all medications including KEPPRA, MAXIPIME, LAMICTAL,AND HEPARIN . Give all medications after HD completed .
[2018-11-21] MEDS: HEPARIN 1000 UNITS/ML 10 ML INJ CATHETER SCH (22:13)
[2018-11-21] MEDS: ACYCLOVIR IVPB SCH (23:07)
[2018-11-21] MEDS: DEXTROSE 5% IVPB SCH (23:07)
[2018-11-22] VITALS (12 sets, daily range): BP systolic 109–140; BP diastolic 61–93; PULSE 63–72; RESP 10–18
[2018-11-22] MEDS ORDERED: AL HYDROX/MG HYDROX/SIMETH 30 ML CUP PO ONE
[2018-11-22] MEDS: NIFEdipine 10 MG CAP PO SCH ×6 (00:37→20:42)
--- NOTE | 2018-11-22 03:20 | NUR ---
Report given to ALTAGRACIA Rebolledo. All questions answered. Pending transport.
[2018-11-22] MEDS ORDERED: PANTOPRAZOLE 40 MG INJ IV SCH (06:00)
--- NOTE | 2018-11-22 07:32 | NUR ---
EOSS: Patient transfered in from ICU early this morning. With dry shingles in right groin. Healed pressure ulcer on sacrococcyx. Blood drawn from PICC line this morning. Bed alarm on. Endorsed.
--- NOTE | 2018-11-22 08:21 | CONS ---
Assessment/Plan Assessment/Plan Assessment/Plan 1. 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 Seizures possibly due to encephalitis 2. Hypertensive emergency 3. ESRD on HD TTS schedule 4. H/o HTN 5. H/o HL 6. H/o Lupus 7. H/o Recent admission at [facility] for acute respiratory failure requiring intubation and ventilator care Plan; s/p HD yesterday 2 L removed, Na improved to 134, more alert, BP controlled , change [place] to 0.1 mg pO BID, D/c regular procardia Xl, start procardia Xl 30mg pO BID on IV acyclovir 250mg q 24 hr ID following, VZV PCR on [employer] pending will continue pt on Tue, Thus, tuesday schedule will follow up Result Diagram: 11/22/18 0532 11/22/18 0532 Results 24hrs Laboratory Tests Test 11/21/18 09:28 11/21/18 10:03 11/21/18 15:37 11/21/18 16:16 Magnesium Level 2.1 2.1 Hepatitis B Surface NEGATIVE Antigen White Blood Count 4.3 #L Red Blood Count 2.26 #L Hemoglobin 7.0 #L Hematocrit 22.6 #L Mean Corpuscular 100.0 Volume Mean Corpuscular 31.0 Hemoglobin Mean Corpuscular 31.0 L Hemoglobin Concent Red Cell 17.1 H Distribution Width Platelet Count 116 #L Mean Platelet Volume 11.6 H Immature 0.700 H Granulocytes % Neutrophils % 65.2 Lymphocytes % 23.7 Monocytes % 9.7 Eosinophils % 0.5 Basophils % 0.2 Nucleated Red Blood 0.5 H Cells % Immature 0.030 Granulocytes # Neutrophils # 2.8 Lymphocytes # 1.0 Monocytes # 0.4 Eosinophils # 0.0 Basophils # 0.0 Nucleated Red Blood 0.0 Cells # Sodium Level 127 L Potassium Level 5.1 Chloride Level 90 L Carbon Dioxide Level 25 Anion Gap 12 Blood Urea Nitrogen 35 H Creatinine 5.68 H Est Glomerular 9 L Filtrat Rate mL/min Glucose Level 109 Calcium Level 8.4 Phosphorus Level 6.6 H Test 11/22/18 05:32 White Blood Count 3.0 #L Red Blood Count 2.68 L Hemoglobin 8.4 L Hematocrit 26.6 L Mean Corpuscular 99.3 Volume Mean Corpuscular 31.3 Hemoglobin Mean Corpuscular 31.6 L Hemoglobin Concent Red Cell 16.8 H Distribution Width Platelet Count 132 L Mean Platelet Volume 10.8 H Immature 0.300 Granulocytes % Neutrophils % 52.1 Lymphocytes % 34.1 Monocytes % 12.9 H Eosinophils % 0.3 Basophils % 0.3 Nucleated Red Blood 0.0 Cells % Immature 0.010 Granulocytes # Neutrophils # 1.6 Lymphocytes # 1.0 Monocytes # 0.4 Eosinophils # 0.0 Basophils # 0.0 Nucleated Red Blood 0.0 Cells # Sodium Level 134 L Potassium Level 4.2 Chloride Level 95 L Carbon Dioxide Level 29 Anion Gap 10 Blood Urea Nitrogen 14 # Creatinine 3.00 #H Est Glomerular 18 L Filtrat Rate mL/min Glucose Level 97 Calcium Level 8.5 Consultation Date/Type/Reason Admit Date/Time Nov 16, 2018 at 08:00 Initial Consult Date 11/16/18 Type of Consult NEPHROLOGY Requesting Provider: ARTURO AMADOR MD 24 HR Interval Summary Free Text/Dictation more alert and awake, transferred to telemetry floor, plan for HD tomorrow Exam/Review of Systems Vital Signs Vitals Vital Signs Date Temp Pulse Resp B/P (MAP) Pulse Ox O2 O2 Flow FiO2 Time Delivery Rate 11/22/18 98.2 69 18 140/84 94 Room Air 08:12 (102) 11/18/18 21 19:32 Intake and Output 11/21/18 11/21/18 11/22/18 1515:00 23:00 07:00 IntakeIntake Total 345 ml 75 ml 160 ml OutputOutput Total 0 ml 2600 ml BalanceBalance 345 ml -2525 ml 160 ml Exam Constitutional: more alert, awake, on isolation Psych: confusion Respiratory: congested cough, crackles/rales, diminished breath sounds Cardiovascular: regular rate and rhythm, nl pulses Gastrointestinal: soft Musculoskeletal: muscle weakness, swelling (1+ pitting edema ) Extremities: normal pulses Neurological: more awake, alert Medications Medications Current Medications Albumin Human 100 ml @ 100 mls/hr WITH DIALYSIS PRN IV SBP less than 90 mm Hg ; Start 11/16/18 at 12:30 Sodium Chloride (NS) -To prime the dialy... DIRECTED FOR HD PRN IV SBP less than 90 mm Hg ; Start 11/16/18 at 12:30 Acetaminophen (Tylenol Tab) 650 mg Q6H PRN PO PAIN LEVEL 1-3 OR FEVER; Start 11/16/18 at 13:30 Mycophenolate Mofetil (Cellcept) 1,000 mg BID PO Last administered on 11/21/18 23:07; Admin Dose 1,000 MG; Start 11/16/18 at 14:30 Heparin Sodium (Porcine) (Heparin (1000 Units/ml)) 4,500 unit AFTER DIALYSIS CATHETER Last administered on 11/21/18 22:13; Admin Dose 4,500 UNIT; Start 11/16/18 at 15:30 Acyclovir 250 mg/ Dextrose 100 ml @ 100 mls/hr Q24H IVPB Last administered on 11/21/18 23:07; Admin Dose 100 MLS/HR; Start 11/17/18 at 20:00 Aspirin (Aspirin) 81 mg DAILY NGT Last administered on 11/21/18 09:57; Admin Dose 81 MG; Start 11/19/18 at 11:30 Carvedilol (Coreg) 50 mg Q12 NGT Last administered on 11/21/18 23:09; Admin Dose 50 MG; Start 11/19/18 at 12:00 Hydroxychloroquine Sulfate (Plaquenil) 200 mg DAILY NGT Last administered on 11/21/18 11:11; Admin Dose 200 MG; Start 11/19/18 at 12:00 Lactobacillus Acidophilus/ Rhamnosus (Culturelle) 1 cap BID NGT Last administered on 11/21/18 23:08; Admin Dose 1 CAP; Start 11/19/18 at 12:00 Losartan Potassium (Cozaar) 50 mg BID NGT Last administered on 11/21/18 23:08; Admin Dose 50 MG; Start 11/19/18 at 12:00 Prednisone (Prednisone) 5 mg BID NGT Last administered on 11/21/18 23:07; Admin Dose 5 MG; Start 11/19/18 at 12:00 Sertraline HCl (Zoloft) 25 mg DAILY NGT Last administered on 11/21/18 09:58; Admin Dose 25 MG; Start 11/19/18 at 12:00 Tramadol HCl (Ultram) 25 mg Q4 PRN PO severe pain Last administered on 11/21/18 23:08; Admin Dose 25 MG; Start 11/20/18 at 17:00 Nifedipine (Procardia) 20 mg Q4H PO Last administered on 11/22/18at 05:36; Admin Dose 20 MG; Start 11/20/18 at 17:00 Hydralazine HCl (Apresoline) 10 mg Q6H PRN IV sbp >160mmhg; Start 11/20/18 at 17:00 Clonidine (Catapres) 0.2 mg BID NGT Last administered on 11/21/18at 23:09; Admin Dose 0.2 MG; Start 11/20/18 at 21:00 Clonazepam (Klonopin) 0.5 mg Q12 PO Last administered on 11/21/18at 23:06; Admin Dose 0.5 MG; Start 11/21/18 at 09:30 Pantoprazole (Protonix Iv) 40 mg DAILY@06 IV Last administered on 11/22/18at 05:36; Admin Dose 40 MG; Start 11/22/18 at 06:00 Date/Time of Note Date/Time of Note DATE: 11/22/18 TIME: 08:21 ARTURO AMADOR MD Nov 22, 2018 08:21
--- NOTE | 2018-11-22 08:47 | CONS ---
Date/Time of Note Date/Time of Note DATE: 11/22/18 TIME: 08:46 Consult Date/Type/Reason Admit Date/Time Nov 16, 2018 at 08:00 Initial Consult Date 11/18/18 Type of Consultation: cv Requesting Provider: ARTURO AMADOR MD Subjective Cardiology follow-up progress note Subjective: Discussed with staff and telemetry was reviewed. Patient remains in normal sinus rhythm. Patient with no complain of any chest pain or pressure to me now. pt is STILL isolation out of ICU and on tele now Patient denies any left-sided chest pain or pressure to me. Denies any shortness of breath to me denies any abdominal pain to me as this point Objective: General: no acute distress HEENT: NC/AT. pupils are equal. round. NECK: . no stridor. CV: Tachycardic. systolic murmur; no gallop or rubs. PULM: no wheezing . Mild rhonchi. GI: SOFT, NT, ND, no rebound or guarding Extremity: trace B/L LE edema. no clubbing. neuro: Awake and alert responds appropriately Psych: Calm Pleasant rectal: deferred : Deferred Derm: With butterfly rash on the face as well as evidence of shingles in the right inner thigh EKG done November 16, 2018 showed normal sinus rhythm. No evidence of ischemia my personal review Echocardiogram shows: Left Ventricle: Normal left ventricular cavity size, wall thickness and systolic function. The left ventricular ejection fraction is visually estimated at 55 %. Pericardium: Small pericardial effusion. Left pleural effusion seen. IVC: Normal inferior vena cava appearance and respiratory collapse. Conclusions Normal left ventricular cavity size, wall thickness and systolic function. The left ventricular ejection fraction is visually estimated at 55 %. Small pericardial effusion. Left pleural effusion seen. Electronically Signed By: Kevin Wall 17-Nov-2018 19:31:40 Objective Vital Signs Date Temp Pulse Resp B/P (MAP) Pulse Ox O2 O2 Flow FiO2 Time Delivery Rate 11/22/18 66 08:30 11/22/18 98.2 18 140/84 94 Room Air 08:12 (102) 11/18/18 21 19:32 Intake and Output 11/21/18 11/21/18 11/22/18 1515:00 23:00 07:00 IntakeIntake Total 345 ml 75 ml 160 ml OutputOutput Total 0 ml 2600 ml BalanceBalance 345 ml -2525 ml 160 ml Results/Medications Result Diagram: 11/22/18 0532 11/22/18 0532 Results 24 hrs Laboratory Tests Test 11/21/18 09:28 11/21/18 10:03 11/21/18 15:37 11/21/18 16:16 Magnesium Level 2.1 2.1 Hepatitis B Surface NEGATIVE Antigen White Blood Count 4.3 #L Red Blood Count 2.26 #L Hemoglobin 7.0 #L Hematocrit 22.6 #L Mean Corpuscular 100.0 Volume Mean Corpuscular 31.0 Hemoglobin Mean Corpuscular 31.0 L Hemoglobin Concent Red Cell 17.1 H Distribution Width Platelet Count 116 #L Mean Platelet Volume 11.6 H Immature 0.700 H Granulocytes % Neutrophils % 65.2 Lymphocytes % 23.7 Monocytes % 9.7 Eosinophils % 0.5 Basophils % 0.2 Nucleated Red Blood 0.5 H Cells % Immature 0.030 Granulocytes # Neutrophils # 2.8 Lymphocytes # 1.0 Monocytes # 0.4 Eosinophils # 0.0 Basophils # 0.0 Nucleated Red Blood 0.0 Cells # Sodium Level 127 L Potassium Level 5.1 Chloride Level 90 L Carbon Dioxide Level 25 Anion Gap 12 Blood Urea Nitrogen 35 H Creatinine 5.68 H Est Glomerular 9 L Filtrat Rate mL/min Glucose Level 109 Calcium Level 8.4 Phosphorus Level 6.6 H Test 11/22/18 05:32 White Blood Count 3.0 #L Red Blood Count 2.68 L Hemoglobin 8.4 L Hematocrit 26.6 L Mean Corpuscular 99.3 Volume Mean Corpuscular 31.3 Hemoglobin Mean Corpuscular 31.6 L Hemoglobin Concent Red Cell 16.8 H Distribution Width Platelet Count 132 L Mean Platelet Volume 10.8 H Immature 0.300 Granulocytes % Neutrophils % 52.1 Lymphocytes % 34.1 Monocytes % 12.9 H Eosinophils % 0.3 Basophils % 0.3 Nucleated Red Blood 0.0 Cells % Immature 0.010 Granulocytes # Neutrophils # 1.6 Lymphocytes # 1.0 Monocytes # 0.4 Eosinophils # 0.0 Basophils # 0.0 Nucleated Red Blood 0.0 Cells # Sodium Level 134 L Potassium Level 4.2 Chloride Level 95 L Carbon Dioxide Level 29 Anion Gap 10 Blood Urea Nitrogen 14 # Creatinine 3.00 #H Est Glomerular 18 L Filtrat Rate mL/min Glucose Level 97 Calcium Level 8.5 Medications Current Medications Albumin Human 100 ml @ 100 mls/hr WITH DIALYSIS PRN IV SBP less than 90 mm Hg ; Start 11/16/18 at 12:30 Sodium Chloride (NS) -To prime the dialy... DIRECTED FOR HD PRN IV SBP less than 90 mm Hg ; Start 11/16/18 at 12:30 Acetaminophen (Tylenol Tab) 650 mg Q6H PRN PO PAIN LEVEL 1-3 OR FEVER; Start 11/16/18 at 13:30 Mycophenolate Mofetil (Cellcept) 1,000 mg BID PO Last administered on 11/21/18at 23:07; Admin Dose 1,000 MG; Start 11/16/18 at 14:30 Heparin Sodium (Porcine) (Heparin (1000 Units/ml)) 4,500 unit AFTER DIALYSIS CATHETER Last administered on 11/21/18at 22:13; Admin Dose 4,500 UNIT; Start 11/16/18 at 15:30 Acyclovir 250 mg/ Dextrose 100 ml @ 100 mls/hr Q24H IVPB Last administered on 11/21/18at 23:07; Admin Dose 100 MLS/HR; Start 11/17/18 at 20:00 Aspirin (Aspirin) 81 mg DAILY NGT Last administered on 11/21/18at 09:57; Admin Dose 81 MG; Start 11/19/18 at 11:30 Carvedilol (Coreg) 50 mg Q12 NGT Last administered on 11/21/18at 23:09; Admin Dose 50 MG; Start 11/19/18 at 12:00 Hydroxychloroquine Sulfate (Plaquenil) 200 mg DAILY NGT Last administered on 11/21/18at 11:11; Admin Dose 200 MG; Start 11/19/18 at 12:00 Lactobacillus Acidophilus/ Rhamnosus (Culturelle) 1 cap BID NGT Last administered on 11/21/18 23:08; Admin Dose 1 CAP; Start 11/19/18 at 12:00 Losartan Potassium (Cozaar) 50 mg BID NGT Last administered on 11/21/18 23:08; Admin Dose 50 MG; Start 11/19/18 at 12:00 Prednisone (Prednisone) 5 mg BID NGT Last administered on 11/21/18at 23:07; Admin Dose 5 MG; Start 11/19/18 at 12:00 Sertraline HCl (Zoloft) 25 mg DAILY NGT Last administered on 11/21/18 09:58; Admin Dose 25 MG; Start 11/19/18 at 12:00 Tramadol HCl (Ultram) 25 mg Q4 PRN PO severe pain Last administered on 11/21/18 23:08; Admin Dose 25 MG; Start 11/20/18 at 17:00 Nifedipine (Procardia) 20 mg Q4H PO Last administered on 11/22/18 05:36; Admin Dose 20 MG; Start 11/20/18 at 17:00 Hydralazine HCl (Apresoline) 10 mg Q6H PRN IV sbp >160mmhg; Start 11/20/18 at 17:00 Clonidine (Catapres) 0.2 mg BID NGT Last administered on 11/21/18at 23:09; Admin Dose 0.2 MG; Start 11/20/18 at 21:00 Clonazepam (Klonopin) 0.5 mg Q12 PO Last administered on 11/21/18at 23:06; Admin Dose 0.5 MG; Start 11/21/18 at 09:30 Pantoprazole (Protonix Iv) 40 mg DAILY@06 IV Last administered on 11/22/18 05:36; Admin Dose 40 MG; Start 11/22/18 at 06:00 Assessment/Plan Chief Complaint/Hosp Course 1. Hypertensive urgency 2. Encephalopathy 3. Renal failure on dialysis 4. History of lupus 5. Pericardial effusion: Appears to be small and stable at this point 6. Anemia 7. Shingles 8. Possible C. difficile Recommendations Antibiotic management and antiviral management as per internal medicine Neuro workup per internal medicine/and neurology consultants Beta-catracho orally to be given as tolerated. Hemodialysis as per renal Transfusions as needed Thank you for his referral. We will continue to follow along with you, SERGO MUNOZ MD [facility] SERGO MUNOZ MD Nov 22, 2018 08:47
[2018-11-22] MEDS: clonAZEPAM 0.5 MG TAB PO SCH ×2 (08:56→20:41)
[2018-11-22] MEDS: LACTOBACILLUS RHAMNOSUS CAP NGT SCH ×2 (08:57→20:43)
[2018-11-22] MEDS: LOSARTAN 50 MG TAB NGT SCH ×2 (08:58→20:41)
[2018-11-22] MEDS: ASPIRIN 81 MG TAB NGT SCH (08:58)
[2018-11-22] MEDS: predniSONE 5 MG TAB NGT SCH ×2 (08:58→20:42)
[2018-11-22] MEDS: HYDROXYCHLOROQUINE 200 MG TAB NGT SCH (08:59)
[2018-11-22] MEDS: SERTRALINE 50 MG TAB NGT SCH (08:59)
--- NOTE | 2018-11-22 09:40 | NUR ---
PT [facility] Patient: Cynthia Mccall : 1985 Age/Sex: 33/F Unit#: [id number] Room/Bed: 609/A User: Nahum Castro PT Date: 11/22/18 08:35 Type: PT Technical Record Therapy day number 1 Evaluation Start Time 08:35 Evaluation Total Time 0 min Subjective Denies pain Pain Scale NUMERIC Pain Intensity 0 (0-10) Patient Stated Goal for Pain Relief 0 (0-10) Pain Level Comment denies pain Pre Treatment Vital Signs Stable Yes Exercise Assessment Label Bilat Lower Extremity Exercise Type Active ROM Additional Exercise Comments semi-supine APs, heel slides, SLR; seated LAQs, marching Supine to Sit Minimum Assist Transfer Sit to Stand Ability Contact Guard Assist Bed Mobility Sit to Supine Contact Guard Assist Bed Transfer Ability Contact Guard Assist Chair Transfer Ability Contact Guard Assist Sitting Tolerance 15 min Patient uses wheelchair Not Applicable Gait Assist Levels Contact Guard Assist Assistive Devices Front Wheel Walker Ambulation Distance 45 feet Additional Gait Comments slow wilver, L ankle inversion, narrow GARETT, pt tends to veer towards R Weight Bearing Assessment Label Bilat Lower Extremity Weight Bearing Status Weight Bearing as Elizabeth Static Sitting Balance Good Dynamic Sitting Balance Fair plus Standing Static Balance Fair plus Dynamic Standing Balance Fair Additional Balance Assessments Comments FWW Safety Judgement Good Activity Tolerance Fair Post Treatment Pain Intensity 0 0-10 Variance Documentation SEE PT EVAL PT Technical Record Comment PT EVWINTER Pt is a 33 yo F with PMH of lupus, ESRD on HD, HTN, chronic depression, benzodiapzepine and benadryl dependence, h/o recent admission at [facility] for acute respiratory failure requiring intubation and ventilator care, and recent diagnosis of shingles who presented to ER due to severely elevated BP. Pt experienced a witnessed seizure in the ER. Chest xray with mild B pleural effusions, bibasilar atelectasis. Brain imaging no acute intracranial pathology, calficied nodule in R cerebellum, stable. Pt received in 6W, telemetry. PLOF: Pt lives with parents in 2nd floor apartment. Pt ambulatory without AD prior to admission, owns a FWW. Pt reports father is her 24/7 caregiver. CLOF: ALTAGRACIA Soriano cleared pt for PT evaluation. Pt received semi-supine in bed, vitals assessed and stable, agreeable to PT evaluation. Pt educated in and guided through semi-supine therex as described above. Bed mobility, transfer, and gait assessment as above, pt amb 45' with FWW, no LOB. Pt returned to bed, all needs in reach, no signs of distress, bed alarm activated. RN notified of pt's status. Recommendation: Pt demonstrates generalized weakness, gait distance limited due to fatigue (45'). Pt will benefit from additional skilled PT services during hospital stay to maximize independence prior to discharge. Anticipating home d/c with family assistance as needed, use of FWW, and HHPT once cleared by . No anticipated DME needs. P: Continue c PT POC Daily x 5.
--- NOTE | 2018-11-22 10:13 | NUR ---
jeyson confirmation no for 11/23 [id number]
[2018-11-22] MEDS: MYCOPHENOLATE 250 MG CAP PO SCH ×2 (10:39→20:41)
--- NOTE | 2018-11-22 10:48 | CONS ---
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: notable for R and L L2-3 dermatomes, R upper thigh, and also possibly tongue and lip - varicella infections of the tongue - improving - seizure secondary to encephalitis GI - abdominal pain and watery diarrhea, C diff was negative on 11/19/2018 - hep B virus surface antigen positive status 11/16/18; hep B DNA viral load was undetectable on 07/22/2018, possibly reflecting chronic HBV carrier state; repeat Hep B virus surface antigen was non-reactive 11/20/18, negative 11/21/18 - h/o pancreatitis in 2018 cardiac - reportedly had code blue after admission - h/o cardiopulmonary arrest - EF 55% renal, immunological - ESRD on HD via catheter on R chest wall - lupus nephritis, on cellcept, prednisone, plaquenil pulmonary - h/o extensive bilateral lower lung consolidative changes with ground-glass consistent with likely multifocal pneumonia on CT 07/17/2018. Pt completed antibiotics (meropenem) for this on 07/28/2018 - h/o acute hypoxic resp failure, s/p intubation followed by extubation ortho, vascular - h/o eschar and crusted wound of R dorsal hand. No superficial wound culture is available to guide the antibiotic. Soft tissue TYRESE on 07/28/2018 showed 1.7 cm irregular shaped fluid collection in the soft tissues. MRI on 08/06/2018 showed suspicion of infectious myositis/fasciitis, diffuse subcutaneous edema and skin irregularity of R hand; no definite large drainable fluid collection; faint bone marrow edema noted about the carpal bones and base of the third metacarpal, which could be reactive to the soft tissue process although early osteomyelitis is not excluded. - thrombosis of R basilic and right cephalic veins, seen on TYRESE on 07/24/2018 Recommendations: - awaiting Varicella zoster virus PCR CSF testing - Ordered HBV viral load. - Dr. Hoawrd instructed Pt's RN Chace to inquire the micro lab and send out if varicella zoster virus PCR has been added to Pt's left over CSF at 5:00 am on 11/20/2018. I spoke to the patient's RN Isela on 11/20/18 who confirmed that the lab has sent out the CSF fluid to test for varicella zoster virus PCR. I called and spoke with the laboratory today 11/22/18 and was told the results should be returned, available, and released by tomorrow 11/23/18. - If Pt remains altered despite high dose acyclovir, we recommend another LP to get more CSF for testing - Continue renally dosed acyclovir (11/17/2018-) for now - monitor crcl closely - Keep Pt on airborne and contact precautions until all varicella lesions are dry and crusted - On 11/18/2018 Dr. Howard advised that Pt's family members who were exposed to her varicella be tested for varicella zoster antibody, and if non-immune, to get post-exposure prophylaxis Management was d/w patient, and with Dr. Lay. Thank you Result Diagram: 11/22/18 0532 11/22/18 0532 Results 24hrs Laboratory Tests Test 11/21/18 15:37 11/21/18 16:16 11/22/18 05:32 White Blood Count 4.3 #L 3.0 #L Red Blood Count 2.26 #L 2.68 L Hemoglobin 7.0 #L 8.4 L Hematocrit 22.6 #L 26.6 L Mean Corpuscular Volume 100.0 99.3 Mean Corpuscular Hemoglobin 31.0 31.3 Mean Corpuscular Hemoglobin Concent 31.0 L 31.6 L Red Cell Distribution Width 17.1 H 16.8 H Platelet Count 116 #L 132 L Mean Platelet Volume 11.6 H 10.8 H Immature Granulocytes % 0.700 H 0.300 Neutrophils % 65.2 52.1 Lymphocytes % 23.7 34.1 Monocytes % 9.7 12.9 H Eosinophils % 0.5 0.3 Basophils % 0.2 0.3 Nucleated Red Blood Cells % 0.5 H 0.0 Immature Granulocytes # 0.030 0.010 Neutrophils # 2.8 1.6 Lymphocytes # 1.0 1.0 Monocytes # 0.4 0.4 Eosinophils # 0.0 0.0 Basophils # 0.0 0.0 Nucleated Red Blood Cells # 0.0 0.0 Sodium Level 127 L 134 L Potassium Level 5.1 4.2 Chloride Level 90 L 95 L Carbon Dioxide Level 25 29 Anion Gap 12 10 Blood Urea Nitrogen 35 H 14 # Creatinine 5.68 H 3.00 #H Est Glomerular Filtrat Rate mL/min 9 L 18 L Glucose Level 109 97 Calcium Level 8.4 8.5 Phosphorus Level 6.6 H Magnesium Level 2.1 Consultation Date/Type/Reason Admit Date/Time Nov 16, 2018 at 08:00 Initial Consult Date 11/18/18 Type of Consult ID Requesting Provider: ARTURO AMADOR MD 24 HR Interval Summary Free Text/Dictation The patient c/o itching and tingling in her right upper thigh "it is really bothering me." She denies current h/a, fevers, chills, night sweats, sob, cp, n/v/d, dysuria. She states "i'm feeling better." Remains afebrile, WBC 3.0. Exam/Review of Systems Vital Signs Vitals Vital Signs Date Temp Pulse Resp B/P (MAP) Pulse Ox O2 O2 Flow FiO2 Time Delivery Rate 11/22/18 66 08:30 11/22/18 98.2 18 140/84 94 Room Air 08:12 (102) 11/18/18 21 19:32 Intake and Output 11/21/18 11/21/18 11/22/18 1515:00 23:00 07:00 IntakeIntake Total 345 ml 75 ml 160 ml OutputOutput Total 0 ml 2600 ml BalanceBalance 345 ml -2525 ml 160 ml Allergies Coded Allergies adhesive tape (Verified Allergy, Unknown, 10/26/18) hydrocodone (Unverified Allergy, Unknown, paralysis, 10/13/18) Exam Constitutional: alert, oriented, frail, other (more alert, answers all my questions. Awakened to verbal stimuli.) Psych: no complaints, nl mood/affect Head: normocephalic, atraumatic Eyes: nl conjunctiva, nl lids, nl sclera ENMT: nl external ears & nose, nl nasal mucosa & septum, mucosa pink and moist (no thrush, white circles no longer noted on tongue) Neck: supple, non-tender Respiratory: clear to auscultation, normal air movement Cardiovascular: regular rate and rhythm, nl pulses Gastrointestinal: soft, non-tender, bowel sounds (normoactive ) Musculoskeletal: nl extremities to inspection Extremities: normal pulses Neurological: nl speech, other (answered questions appropriately) Skin: nl turgor, other (Dried scabbed vescicles on R upper thigh. R back L2-3 distribution and L flank with scattered linear blister pattern without erythema.) Medications Medications Current Medications Albumin Human 100 ml @ 100 mls/hr WITH DIALYSIS PRN IV SBP less than 90 mm Hg ; Start 11/16/18 at 12:30 Sodium Chloride (NS) -To prime the dialy... DIRECTED FOR HD PRN IV SBP less than 90 mm Hg ; Start 11/16/18 at 12:30 Acetaminophen (Tylenol Tab) 650 mg Q6H PRN PO PAIN LEVEL 1-3 OR FEVER; Start 11/16/18 at 13:30 Mycophenolate Mofetil (Cellcept) 1,000 mg BID PO Last administered on 11/21/18 23:07; Admin Dose 1,000 MG; Start 11/16/18 at 14:30 Heparin Sodium (Porcine) (Heparin (1000 Units/ml)) 4,500 unit AFTER DIALYSIS CATHETER Last administered on 11/21/18at 22:13; Admin Dose 4,500 UNIT; Start 11/16/18 at 15:30 Acyclovir 250 mg/ Dextrose 100 ml @ 100 mls/hr Q24H IVPB Last administered on 11/21/18at 23:07; Admin Dose 100 MLS/HR; Start 11/17/18 at 20:00 Aspirin (Aspirin) 81 mg DAILY NGT Last administered on 11/22/18 08:58; Admin Dose 81 MG; Start 11/19/18 at 11:30 Carvedilol (Coreg) 50 mg Q12 NGT Last administered on 11/22/18 08:57; Admin Dose 50 MG; Start 11/19/18 at 12:00 Hydroxychloroquine Sulfate (Plaquenil) 200 mg DAILY NGT Last administered on 11/22/18 08:59; Admin Dose 200 MG; Start 11/19/18 at 12:00 Lactobacillus Acidophilus/ Rhamnosus (Culturelle) 1 cap BID NGT Last administered on 11/22/18 08:57; Admin Dose 1 CAP; Start 11/19/18 at 12:00 Losartan Potassium (Cozaar) 50 mg BID NGT Last administered on 11/22/18 08:58; Admin Dose 50 MG; Start 11/19/18 at 12:00 Prednisone (Prednisone) 5 mg BID NGT Last administered on 11/22/18 08:58; Admin Dose 5 MG; Start 11/19/18 at 12:00 Sertraline HCl (Zoloft) 25 mg DAILY NGT Last administered on 11/22/18 08:59; Admin Dose 25 MG; Start 11/19/18 at 12:00 Tramadol HCl (Ultram) 25 mg Q4 PRN PO severe pain Last administered on 11/21/18at 23:08; Admin Dose 25 MG; Start 11/20/18 at 17:00 Nifedipine (Procardia) 20 mg Q4H PO Last administered on 11/22/18at 08:59; Admin Dose 20 MG; Start 11/20/18 at 17:00 Hydralazine HCl (Apresoline) 10 mg Q6H PRN IV sbp >160mmhg; Start 11/20/18 at 17:00 Clonidine (Catapres) 0.2 mg BID NGT Last administered on 11/22/18 08:57; Admin Dose 0.2 MG; Start 11/20/18 at 21:00 Clonazepam (Klonopin) 0.5 mg Q12 PO Last administered on 11/22/18at 08:56; Admin Dose 0.5 MG; Start 11/21/18 at 09:30 Pantoprazole (Protonix Iv) 40 mg DAILY@06 IV Last administered on 11/22/18at 05:36; Admin Dose 40 MG; Start 11/22/18 at 06:00 Date/Time of Note Date/Time of Note DATE: 11/22/18 TIME: 10:21 JANICE LOPEZ NP Nov 22, 2018 10:35
--- NOTE | 2018-11-22 11:11 | PN ---
Date/Time of Note Date/Time of Note DATE: 11/22/18 TIME: 11:05 Assessment/Plan VTE Prophylaxis Risk score (from Ns)>0 risk: 9 SCD applied (from Ns): Yes Pharmacological prophylaxis: heparin Lines/Catheters IV Catheter Type (from [facility]): PICC Line Central line still needed: Yes Urinary Cath still in place: No Assessment/Plan Result Diagram: 11/22/18 0532 11/22/18 0532 Results 24hrs Laboratory Tests Test 11/21/18 15:37 11/21/18 16:16 11/22/18 05:32 White Blood Count 4.3 #L 3.0 #L Red Blood Count 2.26 #L 2.68 L Hemoglobin 7.0 #L 8.4 L Hematocrit 22.6 #L 26.6 L Mean Corpuscular Volume 100.0 99.3 Mean Corpuscular Hemoglobin 31.0 31.3 Mean Corpuscular Hemoglobin Concent 31.0 L 31.6 L Red Cell Distribution Width 17.1 H 16.8 H Platelet Count 116 #L 132 L Mean Platelet Volume 11.6 H 10.8 H Immature Granulocytes % 0.700 H 0.300 Neutrophils % 65.2 52.1 Lymphocytes % 23.7 34.1 Monocytes % 9.7 12.9 H Eosinophils % 0.5 0.3 Basophils % 0.2 0.3 Nucleated Red Blood Cells % 0.5 H 0.0 Immature Granulocytes # 0.030 0.010 Neutrophils # 2.8 1.6 Lymphocytes # 1.0 1.0 Monocytes # 0.4 0.4 Eosinophils # 0.0 0.0 Basophils # 0.0 0.0 Nucleated Red Blood Cells # 0.0 0.0 Sodium Level 127 L 134 L Potassium Level 5.1 4.2 Chloride Level 90 L 95 L Carbon Dioxide Level 25 29 Anion Gap 12 10 Blood Urea Nitrogen 35 H 14 # Creatinine 5.68 H 3.00 #H Est Glomerular Filtrat Rate mL/min 9 L 18 L Glucose Level 109 97 Calcium Level 8.4 8.5 Phosphorus Level 6.6 H Magnesium Level 2.1 Subjective 24 Hr Interval Summary Free Text/Dictation S: tolerating diet, still lethargic, but mentation still good, close to baseline O: gen: calm, oriented x3, no distress, frail Head: atraumatic, normocephalic, de facies, frail, friable skin Neck: non-tender, supple Respiratory: clear to auscultation, diminished Cardiovascular: regular rate and rhythm Gastrointestinal: S/ NT / ND / +BS Extremities: no edema, good radial pulses, no more twitching skin: rash assessment and plan: 33 yo F with chronic lupus and ESRD on HD who was diagnosed with shingles 2 days prior to admission who had returned with itching, nausea and vomiting and severely elevated blood pressures and abnormal behavior currently managed as follows: 1. Acute encephalopathy with ?twitching versus seizures: resolved -differentials include Hypertensive encephalopathy vs HSV encephalitis, -HSV PCR in CSF still pending, -continue high dose acyclovir, appreciate ID and neuro input and help -MRI basically negative 2. Hypertension s/p hypertensive emergency: -good control on current oral meds, titrate as indicated 3. Profuse diarrhea: resolved -C-diff assay negative, 4. ESRD: -continue routine HD 5. Tachycardia:resolved, -likely SIRS, -no PE on CTA< pericardial effusion stable 6. Shingles on Valtrex therapy 7. chronic anemia now with pancytopenia 2/2 CKD: stable 8. Chronic thrombocytopenia 2/2 uremia: monitor 9. H/o depression and anxiety : on Zoloft 10. hx of lupus -continue Plaquenil, mycophenolate and prednisone 11. [place] pleural effusions: -recurrent, has had multiple thoracentesis in the past, most recent 10/27/18 -no resp symptoms at this time -monitor and ambulate as soon as possible dispo: -continue inpatient PT -patient is still quite lethargic and is planned for discharge to home with her family, will keep inpatient for 1 more day and discharge home with family tomorrow -Obtain final antibiotic /antiviral regimen from ID as well as clearance for discharge -Continue supportive care. Exam/Review of Systems Vital Signs Vitals Vital Signs Date Temp Pulse Resp B/P (MAP) Pulse Ox O2 O2 Flow FiO2 Time Delivery Rate 11/22/18 66 08:30 11/22/18 98.2 18 140/84 94 Room Air 08:12 (102) 11/18/18 21 19:32 Intake and Output 11/21/18 11/21/18 11/22/18 1515:00 23:00 07:00 IntakeIntake Total 345 ml 75 ml 160 ml OutputOutput Total 0 ml 2600 ml BalanceBalance 345 ml -2525 ml 160 ml Medications Medications Current Medications Albumin Human 100 ml @ 100 mls/hr WITH DIALYSIS PRN IV SBP less than 90 mm Hg ; Start 11/16/18 at 12:30 Sodium Chloride (NS) -To prime the dialy... DIRECTED FOR HD PRN IV SBP less than 90 mm Hg ; Start 11/16/18 at 12:30 Acetaminophen (Tylenol Tab) 650 mg Q6H PRN PO PAIN LEVEL 1-3 OR FEVER; Start 11/16/18 at 13:30 Mycophenolate Mofetil (Cellcept) 1,000 mg BID PO Last administered on 11/22/18at 10:39; Admin Dose 1,000 MG; Start 11/16/18 at 14:30 Heparin Sodium (Porcine) (Heparin (1000 Units/ml)) 4,500 unit AFTER DIALYSIS CATHETER Last administered on 11/21/18at 22:13; Admin Dose 4,500 UNIT; Start 11/16/18 at 15:30 Acyclovir 250 mg/ Dextrose 100 ml @ 100 mls/hr Q24H IVPB Last administered on 11/21/18 23:07; Admin Dose 100 MLS/HR; Start 11/17/18 at 20:00 Aspirin (Aspirin) 81 mg DAILY NGT Last administered on 11/22/18 08:58; Admin Dose 81 MG; Start 11/19/18 at 11:30 Carvedilol (Coreg) 50 mg Q12 NGT Last administered on 11/22/18 08:57; Admin Dose 50 MG; Start 11/19/18 at 12:00 Hydroxychloroquine Sulfate (Plaquenil) 200 mg DAILY NGT Last administered on 11/22/18 08:59; Admin Dose 200 MG; Start 11/19/18 at 12:00 Lactobacillus Acidophilus/ Rhamnosus (Culturelle) 1 cap BID NGT Last administered on 11/22/18 08:57; Admin Dose 1 CAP; Start 11/19/18 at 12:00 Losartan Potassium (Cozaar) 50 mg BID NGT Last administered on 11/22/18 08:58; Admin Dose 50 MG; Start 11/19/18 at 12:00 Prednisone (Prednisone) 5 mg BID NGT Last administered on 11/22/18 08:58; Admin Dose 5 MG; Start 11/19/18 at 12:00 Sertraline HCl (Zoloft) 25 mg DAILY NGT Last administered on 11/22/18 08:59; Admin Dose 25 MG; Start 11/19/18 at 12:00 Tramadol HCl (Ultram) 25 mg Q4 PRN PO severe pain Last administered on 11/21/18 23:08; Admin Dose 25 MG; Start 11/20/18 at 17:00 Nifedipine (Procardia) 20 mg Q4H PO Last administered on 11/22/18 08:59; Admin Dose 20 MG; Start 11/20/18 at 17:00 Hydralazine HCl (Apresoline) 10 mg Q6H PRN IV sbp >160mmhg; Start 11/20/18 at 17:00 Clonidine (Catapres) 0.2 mg BID NGT Last administered on 11/22/18 08:57; Admin Dose 0.2 MG; Start 11/20/18 at 21:00 Clonazepam (Klonopin) 0.5 mg Q12 PO Last administered on 11/22/18 08:56; Admin Dose 0.5 MG; Start 11/21/18 at 09:30 Pantoprazole (Protonix Iv) 40 mg DAILY@06 IV Last administered on 11/22/18 05:36; Admin Dose 40 MG; Start 11/22/18 at 06:00 FARHAD LEZAMA Nov 22, 2018 11:11
--- NOTE | 2018-11-22 11:35 | NUR ---
pt is hard stick. pt has left arm av shunt, unable to use for iv insertion. no visible vein on the right arm and with scars. will try again later. will keep picc line until peripheral line inserted.
--- NOTE | 2018-11-22 12:18 | NUR ---
pt wants to keep picc. she doesnt want to be poked for blood draw.
--- NOTE | 2018-11-22 14:57 | CONS ---
Assessment/Plan Assessment/Plan Hospital Course A: 33 yo F with hx of lupus, on immunosuppressive Tx... who presents for evaluation of ams and "low grade" temperatures. In the ED, she had a witnessed seizure, for which neurology is consulted. The clinical picture is most ominously concerning for meningoencephalitis. An acute toxic-metabolic encephalopathy is additionally considered. Stroke is less likely. MRI is without acute intracranial pathology. CSF is notable for a mild lymphocytic pleocytosis, with low glucose and elevated protein.. The first tube showed elevated reds, which raised initial concern for HSV...however, tube 4 is without red cells.. EEG is without ongoing epileptiform activity P: Other infectious workup and management per ID Ativan IV PRN seizure > 5 min or for cluster Reorient as necessary Limit sedating medications where possible Will follow clinically Result Diagram: 11/22/18 0532 11/22/18 0532 Results 24hrs Laboratory Tests Test 11/21/18 15:37 11/21/18 16:16 11/22/18 05:32 11/22/18 12:07 White Blood Count 4.3 #L 3.0 #L Red Blood Count 2.26 #L 2.68 L Hemoglobin 7.0 #L 8.4 L Hematocrit 22.6 #L 26.6 L Mean Corpuscular 100.0 99.3 Volume Mean Corpuscular 31.0 31.3 Hemoglobin Mean Corpuscular 31.0 L 31.6 L Hemoglobin Concent Red Cell 17.1 H 16.8 H Distribution Width Platelet Count 116 #L 132 L Mean Platelet 11.6 H 10.8 H Volume Immature 0.700 H 0.300 Granulocytes % Neutrophils % 65.2 52.1 Lymphocytes % 23.7 34.1 Monocytes % 9.7 12.9 H Eosinophils % 0.5 0.3 Basophils % 0.2 0.3 Nucleated Red 0.5 H 0.0 Blood Cells % Immature 0.030 0.010 Granulocytes # Neutrophils # 2.8 1.6 Lymphocytes # 1.0 1.0 Monocytes # 0.4 0.4 Eosinophils # 0.0 0.0 Basophils # 0.0 0.0 Nucleated Red 0.0 0.0 Blood Cells # Sodium Level 127 L 134 L Potassium Level 5.1 4.2 Chloride Level 90 L 95 L Carbon Dioxide 25 29 Level Anion Gap 12 10 Blood Urea 35 H 14 # Nitrogen Creatinine 5.68 H 3.00 #H Est Glomerular 9 L 18 L Filtrat Rate mL/min Glucose Level 109 97 Calcium Level 8.4 8.5 Phosphorus Level 6.6 H Magnesium Level 2.1 Lab Scanned Report REFERENCE LAB Consultation Date/Type/Reason Admit Date/Time Nov 16, 2018 at 08:00 Type of Consult Neurology Reason for Consultation ams, seizures Requesting Provider: ARTURO AMADOR MD Date/Time of Note DATE: 11/22/18 TIME: 14:57 24 HR Interval Summary Free Text/Dictation Continues telemetry monitoring. No acute events or pt complaints reported. Exam Vital Signs Vitals Vital Signs Date Temp Pulse Resp B/P (MAP) Pulse Ox O2 O2 Flow FiO2 Time Delivery Rate 11/22/18 98.0 65 18 134/78 95 Room Air 12:56 (96) 11/18/18 21 19:32 Intake and Output 11/21/18 11/21/18 11/22/18 1515:00 23:00 07:00 IntakeIntake Total 345 ml 75 ml 160 ml OutputOutput Total 0 ml 2600 ml BalanceBalance 345 ml -2525 ml 160 ml Exam PE: Gen Appearance: Appears upset HEENT: Normocephalic Cardiovascular: Regular rate Abdomen: Soft Extremities: Dry NE: The patient was awake and alert, oriented to person, hospital, and year..able to follow simple commands. Cranial nerve examination was limited by mental status. Pupils were equal and reactive to light. There was no afferent pupillary defect. Funduscopic exam ination was limited. Face was grossly symmetric, w/ present corneal and cough reflexes. Tone was normal. Muscle bulk was normal. I did not see fasciculations. The patient was diffusely weak.. Coordination and gait testing was limited by mental status. Arm and leg reflexes were within normal limits and symmetric. Walsh's sign was absent. Plantar responses were flexor. ELIANA WHITLOCK NP Nov 22, 2018 14:57
[2018-11-22] MEDS ORDERED: hydrOXYzine HCL 25 MG TAB PO PRN (17:30)
--- NOTE | 2018-11-22 18:33 | NUR ---
eoss pt med surg status. seen by pt and ot. able to ambulate. for HD ramila. denies pain. Been requesting for benadryl, declined by dr. michael due to hx of benadryl dependence. atarax was ordered.
[2018-11-22] MEDS: ACYCLOVIR IVPB SCH (20:39)
[2018-11-22] MEDS: DEXTROSE 5% IVPB SCH (20:39)
[2018-11-23] VITALS (19 sets, daily range): BP systolic 128–214; BP diastolic 82–114; PULSE 55–69; RESP 18–20
[2018-11-23] MEDS ORDERED: PANTOPRAZOLE (EC) 40 MG TAB PO SCH (06:00)
--- NOTE | 2018-11-23 07:33 | NUR ---
EOSS NO ACUTE EVENTS OVERNIGHT. MED SURG STATUS.
[2018-11-23] MEDS: predniSONE 5 MG TAB NGT SCH (08:50)
[2018-11-23] MEDS: LACTOBACILLUS RHAMNOSUS CAP NGT SCH (08:50)
[2018-11-23] MEDS: LOSARTAN 50 MG TAB NGT SCH (08:51)
[2018-11-23] MEDS: ASPIRIN 81 MG TAB NGT SCH (08:51)
[2018-11-23] MEDS: SERTRALINE 50 MG TAB NGT SCH (08:51)
[2018-11-23] MEDS: HYDROXYCHLOROQUINE 200 MG TAB NGT SCH (08:51)
[2018-11-23] MEDS: NIFEdipine (XL) 30 MG TAB PO SCH ×2 (08:52→11:16)
--- NOTE | 2018-11-23 08:54 | CONS ---
Date/Time of Note Date/Time of Note DATE: 11/23/18 TIME: 08:52 Consult Date/Type/Reason Admit Date/Time Nov 16, 2018 at 08:00 Initial Consult Date 11/18/18 Type of Consultation: cv Requesting Provider: ARTURO AMADOR MD Subjective Cardiology follow-up progress note Subjective: Discussed with staff and telemetry was reviewed. Patient remains in normal sinus rhythm. Patient with no complain of any chest pain or pressure to me now. pt is STILL isolation out of ICU and on tele now Blood pressure has been labile but mostly stable Patient denies any left-sided chest pain or pressure to me. Denies any shortness of breath to me denies any abdominal pain to me as this point Objective: General: no acute distress HEENT: NC/AT. pupils are equal. round. NECK: . no stridor. CV: Tachycardic. systolic murmur; no gallop or rubs. PULM: no wheezing . Mild rhonchi. GI: SOFT, NT, ND, no rebound or guarding Extremity: trace B/L LE edema. no clubbing. neuro: Awake and alert responds appropriately Psych: Calm Pleasant rectal: deferred : Deferred Derm: With butterfly rash on the face as well as evidence of shingles in the right inner thigh EKG done November 16, 2018 showed normal sinus rhythm. No evidence of ischemia my personal review Echocardiogram shows: Left Ventricle: Normal left ventricular cavity size, wall thickness and systolic function. The left ventricular ejection fraction is visually estimated at 55 %. Pericardium: Small pericardial effusion. Left pleural effusion seen. IVC: Normal inferior vena cava appearance and respiratory collapse. Conclusions Normal left ventricular cavity size, wall thickness and systolic function. The left ventricular ejection fraction is visually estimated at 55 %. Small pericardial effusion. Left pleural effusion seen. Electronically Signed By: Kevin Wall 17-Nov-2018 19:31:40 Objective Vital Signs Date Temp Pulse Resp B/P (MAP) Pulse Ox O2 O2 Flow FiO2 Time Delivery Rate 11/23/18 98.3 68 20 193/106 97 Room Air 08:01 (135) Intake and Output 11/22/18 11/22/18 11/23/18 1515:00 23:00 07:00 IntakeIntake Total 400 ml OutputOutput Total 1 ml BalanceBalance 399 ml Results/Medications Result Diagram: 11/23/18 0541 11/23/18 0541 Results 24 hrs Laboratory Tests Test 11/22/18 12:07 11/23/18 05:41 Lab Scanned Report REFERENCE LAB White Blood Count 3.3 L Red Blood Count 2.69 L Hemoglobin 8.4 L Hematocrit 26.7 L Mean Corpuscular Volume 99.3 Mean Corpuscular Hemoglobin 31.2 Mean Corpuscular Hemoglobin Concent 31.5 L Red Cell Distribution Width 16.1 H Platelet Count 123 L Mean Platelet Volume 11.5 H Immature Granulocytes % 0.600 H Neutrophils % 48.6 Lymphocytes % 39.4 Monocytes % 11.1 H Eosinophils % 0.0 Basophils % 0.3 Nucleated Red Blood Cells % 0.0 Immature Granulocytes # 0.020 Neutrophils # 1.6 Lymphocytes # 1.3 Monocytes # 0.4 Eosinophils # 0.0 Basophils # 0.0 Nucleated Red Blood Cells # 0.0 Sodium Level 132 L Potassium Level 5.1 Chloride Level 94 L Carbon Dioxide Level 26 Anion Gap 12 Blood Urea Nitrogen 27 #H Creatinine 4.48 #H Est Glomerular Filtrat Rate mL/min 11 L Glucose Level 101 Calcium Level 8.7 Medications Current Medications Albumin Human 100 ml @ 100 mls/hr WITH DIALYSIS PRN IV SBP less than 90 mm Hg ; Start 11/16/18 at 12:30 Sodium Chloride (NS) -To prime the dialy... DIRECTED FOR HD PRN IV SBP less than 90 mm Hg ; Start 11/16/18 at 12:30 Acetaminophen (Tylenol Tab) 650 mg Q6H PRN PO PAIN LEVEL 1-3 OR FEVER; Start 11/16/18 at 13:30 Mycophenolate Mofetil (Cellcept) 1,000 mg BID PO Last administered on 11/22/18at 20:41; Admin Dose 1,000 MG; Start 11/16/18 at 14:30 Heparin Sodium (Porcine) (Heparin (1000 Units/ml)) 4,500 unit AFTER DIALYSIS CATHETER Last administered on 11/21/18at 22:13; Admin Dose 4,500 UNIT; Start 11/16/18 at 15:30 Acyclovir 250 mg/ Dextrose 100 ml @ 100 mls/hr Q24H IVPB Last administered on 11/22/18at 20:39; Admin Dose 100 MLS/HR; Start 11/17/18 at 20:00 Aspirin (Aspirin) 81 mg DAILY NGT Last administered on 11/22/18 08:58; Admin Dose 81 MG; Start 11/19/18 at 11:30 Carvedilol (Coreg) 50 mg Q12 NGT Last administered on 11/22/18 20:42; Admin Dose 50 MG; Start 11/19/18 at 12:00 Hydroxychloroquine Sulfate (Plaquenil) 200 mg DAILY NGT Last administered on 11/22/18 08:59; Admin Dose 200 MG; Start 11/19/18 at 12:00 Lactobacillus Acidophilus/ Rhamnosus (Culturelle) 1 cap BID NGT Last administered on 11/22/18 20:43; Admin Dose 1 CAP; Start 11/19/18 at 12:00 Losartan Potassium (Cozaar) 50 mg BID NGT Last administered on 11/22/18 20:41; Admin Dose 50 MG; Start 11/19/18 at 12:00 Prednisone (Prednisone) 5 mg BID NGT Last administered on 11/22/18 20:42; Admin Dose 5 MG; Start 11/19/18 at 12:00 Sertraline HCl (Zoloft) 25 mg DAILY NGT Last administered on 11/22/18 08:59; Admin Dose 25 MG; Start 11/19/18 at 12:00 Tramadol HCl (Ultram) 25 mg Q4 PRN PO severe pain Last administered on 11/21/18 23:08; Admin Dose 25 MG; Start 11/20/18 at 17:00 Hydralazine HCl (Apresoline) 10 mg Q6H PRN IV sbp >160mmhg; Start 11/20/18 at 17:00 Clonazepam (Klonopin) 0.5 mg Q12 PO Last administered on 11/22/18 20:41; Admin Dose 0.5 MG; Start 11/21/18 at 09:30 Pantoprazole (Protonix Tab) 40 mg DAILY@06 PO Last administered on 11/23/18 07:01; Admin Dose 40 MG; Start 11/23/18 at 06:00 Hydroxyzine HCl (Atarax) 50 mg Q6 PRN PO ITCHING Last administered on 11/23/18 02:07; Admin Dose 50 MG; Start 11/22/18 at 17:30 Clonidine (Catapres) 0.1 mg BID PO ; Start 11/23/18 at 09:00 Nifedipine (Procardia Xl) 30 mg BID PO ; Start 11/23/18 at 09:00 Assessment/Plan Chief Complaint/Hosp Course 1. Hypertensive urgency 2. Encephalopathy 3. Renal failure on dialysis 4. History of lupus 5. Pericardial effusion: Appears to be small and stable at this point 6. Anemia 7. Shingles 8. Possible C. difficile Recommendations Antibiotic management and antiviral management as per internal medicine Neuro workup per internal medicine/and neurology consultants Continue with Coreg. Clonidine as needed as well Hemodialysis as per renal Transfusions as needed Thank you for his referral. We will continue to follow along with you, SERGO MUNOZ MD [facility] SERGO MUNOZ MD Nov 23, 2018 08:54
[2018-11-23] MEDS: MYCOPHENOLATE 250 MG CAP PO SCH (08:59)
[2018-11-23] MEDS: clonAZEPAM 0.5 MG TAB PO SCH (08:59)
--- NOTE | 2018-11-23 11:42 | CONS ---
Assessment/Plan Assessment/Plan Assessment/Plan (Daily) 1. 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 Seizures possibly due to encephalitis 2. Hypertensive emergency 3. ESRD on HD TTS schedule 4. H/o HTN 5. H/o HL 6. H/o Lupus 7. H/o Recent admission at [facility] for acute respiratory failure requiring intubation and ventilator care Plan; plan for HD today, doing better, ok to d/c after HD today on IV acyclovir 250mg q 24 hr will continue pt on Tue, Thus, tuesday schedule will follow up Consultation Date/Type/Reason Admit Date/Time Nov 16, 2018 at 08:00 Initial Consult Date 11/16/18 Type of Consult NEPHROLOGY Requesting Provider: FARHAD LEZAMA Date/Time of Note DATE: 11/23/18 TIME: 11:42 Exam/Review of Systems Vital Signs Vitals Vital Signs Date Temp Pulse Resp B/P (MAP) Pulse Ox O2 O2 Flow FiO2 Time Delivery Rate 11/23/18 68 18 166/114 97 Room Air 10:05 (131) 11/23/18 98.3 08:01 Intake and Output 11/22/18 11/22/18 11/23/18 1515:00 23:00 07:00 IntakeIntake Total 400 ml OutputOutput Total 1 ml BalanceBalance 399 ml Exam Constitutional: more alert, awake, on isolation Psych: confusion Respiratory: congested cough, crackles/rales, diminished breath sounds Cardiovascular: regular rate and rhythm, nl pulses Gastrointestinal: soft Musculoskeletal: muscle weakness, swelling (1+ pitting edema ) Extremities: normal pulses Neurological: more awake, alert Results Result Diagram: 11/23/18 0541 11/23/18 0541 Results 24hrs Laboratory Tests Test 11/22/18 12:07 11/23/18 05:41 Lab Scanned Report REFERENCE LAB White Blood Count 3.3 L Red Blood Count 2.69 L Hemoglobin 8.4 L Hematocrit 26.7 L Mean Corpuscular Volume 99.3 Mean Corpuscular Hemoglobin 31.2 Mean Corpuscular Hemoglobin Concent 31.5 L Red Cell Distribution Width 16.1 H Platelet Count 123 L Mean Platelet Volume 11.5 H Immature Granulocytes % 0.600 H Neutrophils % 48.6 Lymphocytes % 39.4 Monocytes % 11.1 H Eosinophils % 0.0 Basophils % 0.3 Nucleated Red Blood Cells % 0.0 Immature Granulocytes # 0.020 Neutrophils # 1.6 Lymphocytes # 1.3 Monocytes # 0.4 Eosinophils # 0.0 Basophils # 0.0 Nucleated Red Blood Cells # 0.0 Sodium Level 132 L Potassium Level 5.1 Chloride Level 94 L Carbon Dioxide Level 26 Anion Gap 12 Blood Urea Nitrogen 27 #H Creatinine 4.48 #H Est Glomerular Filtrat Rate mL/min 11 L Glucose Level 101 Calcium Level 8.7 ARTURO AMADOR MD Nov 23, 2018 11:42
--- NOTE | 2018-11-23 11:49 | CONS ---
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: notable for R and L L2-3 dermatomes, R upper thigh, and also possibly tongue and lip - varicella infections of the tongue - improving - seizure secondary to encephalitis GI - abdominal pain and watery diarrhea, C diff was negative on 11/19/2018 - hep B virus surface antigen positive status 11/16/18; hep B DNA viral load was undetectable on 07/22/2018, possibly reflecting chronic HBV carrier state; repeat Hep B virus surface antigen was non-reactive 11/20/18, negative 11/21/18 - h/o pancreatitis in 2018 cardiac - reportedly had code blue after admission - h/o cardiopulmonary arrest - EF 55% renal, immunological - ESRD on HD via catheter on R chest wall - lupus nephritis, on cellcept, prednisone, plaquenil pulmonary - h/o extensive bilateral lower lung consolidative changes with ground-glass consistent with likely multifocal pneumonia on CT 07/17/2018. Pt completed antibiotics (meropenem) for this on 07/28/2018 - h/o acute hypoxic resp failure, s/p intubation followed by extubation ortho, vascular - h/o eschar and crusted wound of R dorsal hand. No superficial wound culture is available to guide the antibiotic. Soft tissue TYRESE on 07/28/2018 showed 1.7 cm irregular shaped fluid collection in the soft tissues. MRI on 08/06/2018 showed suspicion of infectious myositis/fasciitis, diffuse subcutaneous edema and skin irregularity of R hand; no definite large drainable fluid collection; faint bone marrow edema noted about the carpal bones and base of the third metacarpal, which could be reactive to the soft tissue process although early osteomyelitis is not excluded. - thrombosis of R basilic and right cephalic veins, seen on TYRESE on 07/24/2018 Recommendations: - d/c Acyclovir - Keep Pt on airborne and contact precautions until all varicella lesions are dry and crusted - On 11/18/2018 Dr. Howard advised that Pt's family members who were exposed to her varicella be tested for varicella zoster antibody, and if non-immune, to get post-exposure prophylaxis Consultation Date/Type/Reason Admit Date/Time Nov 16, 2018 at 08:00 Initial Consult Date 11/18/18 Requesting Provider: FARHAD LEZAMA Date/Time of Note DATE: 11/23/18 TIME: 11:49 24 HR Interval Summary Free Text/Dictation she is requesting Benadryl for itching. Exam/Review of Systems Vital Signs Vitals Vital Signs Date Temp Pulse Resp B/P (MAP) Pulse Ox O2 O2 Flow FiO2 Time Delivery Rate 11/23/18 68 18 166/114 97 Room Air 10:05 (131) 11/23/18 98.3 08:01 Intake and Output 11/22/18 11/22/18 11/23/18 1515:00 23:00 07:00 IntakeIntake Total 400 ml OutputOutput Total 1 ml BalanceBalance 399 ml Exam Constitutional: alert, oriented, well developed Psych: no complaints, nl mood/affect Head: normocephalic, atraumatic Eyes: nl conjunctiva, EOMI, nl lids, nl sclera, PERRL Neck: supple, non-tender Respiratory: clear to auscultation, normal air movement Cardiovascular: regular rate and rhythm, nl pulses Gastrointestinal: soft, nl liver, spleen, non-tender Results Result Diagram: 11/23/18 0541 11/23/18 0541 Results 24hrs Laboratory Tests Test 11/22/18 12:07 11/23/18 05:41 Lab Scanned Report REFERENCE LAB White Blood Count 3.3 L Red Blood Count 2.69 L Hemoglobin 8.4 L Hematocrit 26.7 L Mean Corpuscular Volume 99.3 Mean Corpuscular Hemoglobin 31.2 Mean Corpuscular Hemoglobin Concent 31.5 L Red Cell Distribution Width 16.1 H Platelet Count 123 L Mean Platelet Volume 11.5 H Immature Granulocytes % 0.600 H Neutrophils % 48.6 Lymphocytes % 39.4 Monocytes % 11.1 H Eosinophils % 0.0 Basophils % 0.3 Nucleated Red Blood Cells % 0.0 Immature Granulocytes # 0.020 Neutrophils # 1.6 Lymphocytes # 1.3 Monocytes # 0.4 Eosinophils # 0.0 Basophils # 0.0 Nucleated Red Blood Cells # 0.0 Sodium Level 132 L Potassium Level 5.1 Chloride Level 94 L Carbon Dioxide Level 26 Anion Gap 12 Blood Urea Nitrogen 27 #H Creatinine 4.48 #H Est Glomerular Filtrat Rate mL/min 11 L Glucose Level 101 Calcium Level 8.7 BETTY OLIVARES MD Nov 23, 2018 11:49
--- NOTE | 2018-11-23 11:55 | NUR ---
PT NOTE Attempted to see pt in am. Pt currently on HD. Will follow up if time permits or tomorrow in am. Communicated with RN.
[2018-11-23] MEDS: HEPARIN 1000 UNITS/ML 10 ML INJ CATHETER SCH (12:40)
--- NOTE | 2018-11-23 12:49 | NUR ---
Pt's BP is very high since morning, Pt received her BP medication along with HD today, however SBP at 200s, PRN hydralizine was given, will monitor. pt is currently getting HD.
[2018-11-23] MEDS ORDERED: CARV25TA79 PO (13:21)
--- NOTE | 2018-11-23 13:27 | DS ---
Date/Time of Note Date/Time of Note DATE: 11/23/18 TIME: 13:26 Discharge Summary Admission/Discharge Info Admit Date/Time Nov 16, 2018 at 08:00 Discharge Date/Time Discharge Diagnosis 33 yo F with chronic lupus and ESRD on HD who was diagnosed with shingles 2 days prior to admission who had returned with itching, nausea and vomiting and severely elevated blood pressures and abnormal behavior currently managed as follows: 1. Acute encephalopathy with ?twitching versus seizures: resolved -differentials include Hypertensive encephalopathy vs HSV encephalitis, -HSV PCR in CSF still pending, -high dose acyclovir has been dced -MRI basically negative 2. Hypertension s/p hypertensive emergency: -good control on current oral meds, titrate as indicated 3. Profuse diarrhea: resolved -C-diff assay negative, 4. ESRD: -continue routine HD 5. Tachycardia:resolved, -likely SIRS, -no PE on CTA< pericardial effusion stable 6. Shingles on Valtrex therapy 7. chronic anemia now with pancytopenia 2/2 CKD: stable 8. Chronic thrombocytopenia 2/2 uremia: monitor 9. H/o depression and anxiety : on Zoloft 10. hx of lupus -continue Plaquenil, mycophenolate and prednisone 11. Hayder pleural effusions: -recurrent, has had multiple thoracentesis in the past, most recent 10/27/18 -no resp symptoms at this time Patient Condition: Stable Hospital Course The 33-year-old female who had presented with altered mental status, diarrhea after a recent diagnosis of shingles. She was also has severe hypertensive emergency with elevated blood pressure with systolics in the 200s. She was admitted to the intensive care unit due to the alteration in mental status and high blood pressure that required being on nicardipine drip. She was treated for presumptive herpes encephalitis with high-dose antiviral with improvement in symptoms. Once her mentation improved, she was able to be restarted on her antihypertensives and obtained good high blood pressure control. For HSV DNA on the serum is negative but the PCR on the CSF is still pending. Patient did undergo a lumbar puncture for diagnosis. She was seen by both neurology and infectious disease was followed in-house by nephrology for dialysis and management of her lupus. She was also seen briefly by cardiology for tachycardia. She was worked up with a CTA to rule out a PE that came back negative. MRI also did not show any acute findings. At this time the patient is still somewhat lethargic but back to baseline communicative and cooperative. Infectious disease has discontinued all antivirals at this time, patient is cleared for discharge. For physical therapy she is stable to go home with her family and home health for PT, I did try to call her mother who is her primary caregiver to see if she had any concerns about the patient returning home versus requiring placement. I did leave a message. Tentatively patient is planned to do a discharge home to the care of her family and home health therapy. If there are any changes to this, I will dictate an addendum. Home Meds Active Scripts Diphenhydramine Hcl* (Benadryl*) 25 Mg Cap, 25 MG PO Q6 PRN for ITCHING/RASH, #30 TAB Prov:EMILIEILABANARISTY F 11/16/18 Tramadol HCl (Tramadol HCl) 50 Mg Tablet, 50 MG PO Q4 PRN for severe pain, #6 TAB Prov:JAIRARISTY Yañez 11/16/18 Acyclovir* (Zovirax*) 800 Mg Tablet, 800 MG PO 5 TIMES DAILY for 7 Days, TAB Prov:JAIRARISTY F 11/16/18 Ibuprofen* (Motrin*) 800 Mg Tab, 800 MG PO Q8 PRN for PAIN AND OR ELEVATED TEMP, #30 TAB Prov:BHAVNA MICHAEL. [employer] 11/15/18 Valacyclovir HCl (Valtrex) 1,000 Mg Tablet, 1000 MG PO TID for 7 Days, TAB Prov:BHAVNA MICHAEL. [employer] 11/15/18 Gentamicin in NaCl, Iso-Osm (Gentamicin 100 mg/Ns 100 ml) 100 Mg/100 Ml Piggyback, 70 MG IV AFTER DIALYSIS, #4 DOSE Prov:FARHAD LEZAMA. 10/30/18 Nifedipine (Procardia Xl) 60 Mg Tab.er.24, 60 MG PO BID for 30 Days, #60 TAB 2 Refills Prov:FARHAD LEZAMA M. 10/30/18 Sertraline Hcl* (Sertraline Hcl*) 25 Mg Tablet, 25 MG PO DAILY for anxiety, #30 TAB Prov:FARHAD LEZAMA M. 10/30/18 Hydroxyzine Hcl* (Atarax*) 25 Mg Tab, 50 MG PO Q8H PRN for ITCHING, #30 TAB Prov:FARHAD LEZAMA. 10/30/18 Lactobacillus Rhamnosus GG (Culturelle) 1 Each Capsule, 1 CAP PO BID for 10 Days, #20 CAP Prov:FARHAD LEZAMA. 10/30/18 Pantoprazole* (Pantoprazole*) 40 Mg Tablet.dr, 40 MG PO DAILY, #30 TAB 2 Refills Prov:FARHAD LEZAMA. 10/30/18 Clonidine Hcl* (Catapres*) 0.1 Mg Tablet, 0.1 MG PO BID for 10 Days, #20 TAB 1 Refill Prov:GIANCARLO NOGUERA MD 10/19/18 Carvedilol* (Carvedilol*) 25 Mg Tablet, 25 MG PO Q8 for 10 Days, #30 TAB 1 Refill Prov:GIANCARLO NOGUERA MD 10/19/18 Aspirin* (Aspirin* (EC)) 81 Mg Tablet.dr, 81 MG PO DAILY for 30 Days, #30 otc Prov:GIANCARLO NOGUERA MD 09/24/18 Acetaminophen* (Tylenol*) 325 Mg Tablet, 650 MG PO Q6H PRN for PAIN LEVEL 1-3 OR FEVER for 1 Day, TAB Prov:GIANCARLO NOGUERA MD 09/24/18 Losartan Potassium* (Cozaar*) 50 Mg Tablet, 50 MG PO BID, #60 TAB Prov:VIRGINIA MUSA 08/09/18 Reported Medications Prednisone* (Prednisone*) 5 Mg Tab, 5 MG PO DAILY, TAB 11/16/18 Hydroxyzine Hcl* (Hydroxyzine Hcl*) 10 Mg Tablet, 10 MG PO Q6H PRN for ITCHING, #30 TAB 11/16/18 Carvedilol* (Carvedilol*) 6.25 Mg Tablet, 6.25 MG PO BID, #60 TAB 10/26/18 Metoclopramide* (Reglan*) 10 Mg Tablet, 10 MG PO Q6H PRN for NAUSEA AND OR VOMITING, TAB 09/15/18 Mycophenolate Mofetil* (Mycophenolate Mofetil*) 500 Mg Tablet, 1000 MG PO BID, TAB TAKE 2 TABLET BY MOUTH EVERY MORNING AND EVENING 06/30/18 Hydroxychloroquine Sulfate* (Hydroxychloroquine Sulfate*) 200 Mg Tablet, 200 MG PO DAILY, TAB TAKE 1 TAB BY MOUTH EVERY TUESDAY-Tuesday06/30/18 Discontinued Reported Medications Tramadol Hcl* (Ultram*) 50 Mg Tablet, 100 MG PO Q8, TAB 10/26/18 Discontinued Scripts Furosemide (Lasix) 20 Mg Tab, 20 MG PO BID DIURETICS for 10 Days, #20 TAB Prov:GIANCARLO NOGUERA MD 10/19/18 Primary Care Provider Care Physician No Primary Time spent on discharge: > 30 minutes Pending Labs Laboratory Tests Test 11/23/18 05:41 White Blood Count 3.3 10^3/ul (4.8-10.8) Red Blood Count 2.69 10^6/ul (4.20-5.40) Hemoglobin 8.4 g/dl (12.0-16.0) Hematocrit 26.7 % (37.0-47.0) Mean Corpuscular Volume 99.3 fl (82.0-101.0) Mean Corpuscular Hemoglobin 31.2 pg (29.0-33.0) Mean Corpuscular Hemoglobin Concent 31.5 g/dl (32.0-37.0) Red Cell Distribution Width 16.1 % (11.5-14.5) Platelet Count 123 10^3/UL (140-415) Mean Platelet Volume 11.5 fl (7.4-10.4) Immature Granulocytes % 0.600 % (0.001-0.429) Neutrophils % 48.6 % (39.0-77.0) Lymphocytes % 39.4 % (15.0-51.0) Monocytes % 11.1 % (0.0-11.0) Eosinophils % 0.0 % (0.0-7.0) Basophils % 0.3 % (0.0-2.0) Nucleated Red Blood Cells % 0.0 /100WBC (0.0-0.0) Immature Granulocytes # 0.020 10^3/ul (0.0-0.031) Neutrophils # 1.6 10^3/ul (1.6-7.5) Lymphocytes # 1.3 10^3/ul (0.8-2.9) Monocytes # 0.4 10^3/ul (0.3-0.9) Eosinophils # 0.0 10^3/ul (0.0-0.5) Basophils # 0.0 10^3/ul (0.0-0.1) Nucleated Red Blood Cells # 0.0 10^3/ul (0.0-0.0) Sodium Level 132 mmol/L (135-144) Potassium Level 5.1 mmol/L (3.5-5.1) Chloride Level 94 mmol/L (97-110) Carbon Dioxide Level 26 mmol/L (21-31) Anion Gap 12 (5-13) Blood Urea Nitrogen 27 mg/dl (7-20) Creatinine 4.48 mg/dl (0.44-1.00) Est Glomerular Filtrat Rate mL/min 11 mL/min (>60) Glucose Level 101 mg/dl (70-220) Calcium Level 8.7 mg/dl (8.4-10.2) FARHAD LEZAMA Nov 23, 2018 13:27
--- NOTE | 2018-11-23 13:43 | NUR ---
Dr Rodriguez was called for BP 199/100 despite given medication for BP and HD, Received an order to give carvidolol although pt's HR is 56-61, will monitor
--- NOTE | 2018-11-23 14:10 | CONS ---
Assessment/Plan Assessment/Plan Hospital Course A: 33 yo F with hx of lupus, on immunosuppressive Tx... who presents for evaluation of ams and "low grade" temperatures. In the ED, she had a witnessed seizure, for which neurology is consulted. The clinical picture is most ominously concerning for meningoencephalitis. An acute toxic-metabolic encephalopathy is additionally considered. Stroke is less likely. MRI is without acute intracranial pathology. CSF is notable for a mild lymphocytic pleocytosis, with low glucose and elevated protein.. The first tube showed elevated reds, which raised initial concern for HSV...however, tube 4 is without red cells.. EEG is without ongoing epileptiform activity P: Other infectious workup and management per ID Ativan IV PRN seizure > 5 min or for cluster Reorient as necessary Limit sedating medications where possible Will follow clinically Result Diagram: 11/23/18 0541 11/23/18 0541 Results 24hrs Laboratory Tests Test 11/23/18 05:41 White Blood Count 3.3 L Red Blood Count 2.69 L Hemoglobin 8.4 L Hematocrit 26.7 L Mean Corpuscular Volume 99.3 Mean Corpuscular Hemoglobin 31.2 Mean Corpuscular Hemoglobin Concent 31.5 L Red Cell Distribution Width 16.1 H Platelet Count 123 L Mean Platelet Volume 11.5 H Immature Granulocytes % 0.600 H Neutrophils % 48.6 Lymphocytes % 39.4 Monocytes % 11.1 H Eosinophils % 0.0 Basophils % 0.3 Nucleated Red Blood Cells % 0.0 Immature Granulocytes # 0.020 Neutrophils # 1.6 Lymphocytes # 1.3 Monocytes # 0.4 Eosinophils # 0.0 Basophils # 0.0 Nucleated Red Blood Cells # 0.0 Sodium Level 132 L Potassium Level 5.1 Chloride Level 94 L Carbon Dioxide Level 26 Anion Gap 12 Blood Urea Nitrogen 27 #H Creatinine 4.48 #H Est Glomerular Filtrat Rate mL/min 11 L Glucose Level 101 Calcium Level 8.7 Consultation Date/Type/Reason Admit Date/Time Nov 16, 2018 at 08:00 Type of Consult Neurology Reason for Consultation ams, seizures Requesting Provider: FARHAD LEZAMA Date/Time of Note DATE: 11/23/18 TIME: 14:10 24 HR Interval Summary Free Text/Dictation Continues telemetry monitoring. Reportedly hypertensive this am. No other acute events or pt complaints reported. Exam Vital Signs Vitals Vital Signs Date Temp Pulse Resp B/P (MAP) Pulse Ox O2 O2 Flow FiO2 Time Delivery Rate 11/23/18 61 199/100 13:33 (133) 11/23/18 18 97 Room Air 10:05 11/23/18 98.3 08:01 Intake and Output 11/22/18 11/22/18 11/23/18 1515:00 23:00 07:00 IntakeIntake Total 400 ml OutputOutput Total 1 ml BalanceBalance 399 ml Exam PE: Gen Appearance: Calm, NAD HEENT: Normocephalic Cardiovascular: Regular rate Abdomen: Soft Extremities: Dry NE: The patient was awake and alert, oriented to person, hospital, and year..able to follow simple commands. Cranial nerve examination was limited by mental status. Pupils were equal and reactive to light. There was no afferent pupillary defect. Funduscopic examination was limited. Face was grossly symmetric, w/ present corneal and cough reflexes. Tone was normal. Muscle bulk was normal. I did not see fasciculations. The patient was diffusely weak.. Coordination and gait testing was limited by mental status. Arm and leg reflexes were within normal limits and symmetric. Walsh's sign was absent. Plantar responses were flexor. ELIANA WHITLOCK NP Nov 23, 2018 14:10
--- NOTE | 2018-11-23 14:31 | NUR ---
CASE MANAGEMENT NOTE PT LIVES AT HOME WITH FAMILY AND PER PT SHE HAS FWW AND HAS A HOME HEALTH PT BUT THEY HAVEN'T SEEN HER IN OVER A MONTH.SHE DOES NOT REMEMBER THE NAME AT THIS TIME, CM MADE HER AWARE THAT SHE WILL SEND OUT A NEW INQUIRY AND PT IS AGREEABLE,CM WILL CONTINUE TO FOLLOW UP. Addendum: 11/23/18 at 1435 by FRANCI MEDINA RN, CM Amended: Links added.
--- NOTE | 2018-11-23 14:57 | NUR ---
CASE MANAGEMENT NOTE PT HAS BEEN ON SERVICE WITH [facility] PREVIOUSL[facility] AND WILL RESUME SERVICE PER [facility], [facility] [phone]
--- NOTE | 2018-11-23 16:19 | NUR ---
PT NOTE [facility] Patient: Cynthia Mccall : 1985 Age/Sex: 33/F Unit#: [id number] Room/Bed: 609/A User: Nahum Castro PT Date: 11/23/18 15:47 Type: PT Technical Record Therapy day number 2 Subjective Denies pain Pain Scale NUMERIC Pain Intensity 0 (0-10) Patient Stated Goal for Pain Relief 0 (0-10) Pain Level Comment denies pain Pre Treatment Vital Signs Stable Yes - Exercise Assessment Label Bilat Lower Extremity Exercise Type Active ROM Additional Exercise Comments semi-supine APs, heel slides, SAQs, SLR, hip ABD/ADD, leg press Exercise Start Time 15:47 Exercise End Time 16:12 Total Exercise Time 25 min (8-127) Additional Mobility Comments pt refused EOB/OOB activities Additional Gait Comments pt refused OOB/EOB activities Safety Judgement Fair Activity Tolerance Fair Post Treatment Pain Intensity 0 0-10 Variance Documentation SEE PT NOTE Total Treament Time 25 min (8-127) Total Minutes 25 Total Units 2 PT Technical Record Comment PT NOTE S: Pt reported fatigue, unwilling to attempt EOB/OOB activities and agreeable to bed-level therapeutic exercise. O: ALTAGRACIA Martinez cleared pt for PT session. Pt received semi-supine in bed, vitals assessed and stable though noted pt hypertensive. Pt participated in therapeutic exercise as described above. Pt left in semi-supine position, all needs in reach, no signs of distress. RN notified of pt's status and high BP, end BP at 185/95 mmHg. A: Pt limited activity tolerance this date, participating in only bed-level exercise. P: Continue c PT POC
--- NOTE | 2018-11-23 16:28 | NUR ---
Pt's BP is 170/78, Dr Hsieh is paged, got an order to DC the pt. Will start the discharge process
--- NOTE | 2018-11-23 17:51 | NUR ---
Pt is stable, DC instructions were given to the pt, pt verbalized understanding of given instructions. Education is given regarding Shingles, BP control. PICC was removed, no bleeding noted. pt is educated to monitor for bleeding from the PICC site. Pt will wait her father to pick her up today after 6:30. will monitor.
--- NOTE | 2018-11-23 19:00 | NUR ---
Pt left the unit via wheelchair, with family member at her side.
== END 2018-11-23 19:01 | disposition home health service (06) | DRG 97 ==
LOC: E/R 05:41 → ICU 08:00 → UNDOADMIN 08:00 → CANRESERV 08:47 → EDBEDREQSVC 11:23 → ICU 12:22 → 6WM 11-22 03:53
PROVIDERS: ADMIT Family Medicine; ATTEND Family Medicine
PROC: 5A1D70Z Performance of Urinary Filtration, Intermittent, Less than 6 Hours Per Day (ICD-10-PCS; principal; 2018-11-16)
PROC: 009U3ZX Drainage of Spinal Canal, Percutaneous Approach, Diagnostic (ICD-10-PCS; 2018-11-17)
PROC: B01B1ZZ Fluoroscopy of Spinal Cord using Low Osmolar Contrast (ICD-10-PCS; 2018-11-17)
PROC: 02HV33Z Insertion of Infusion Device into Superior Vena Cava, Percutaneous Approach (ICD-10-PCS; 2018-11-19)
DX: B01.11 Varicella encephalitis and encephalomyelitis (principal); N18.6 End stage renal disease; I16.1 Hypertensive emergency; I67.4 Hypertensive encephalopathy; I12.0 Hypertensive chronic kidney disease with stage 5 chronic kidney disease or end stage renal disease; N17.9 Acute kidney failure, unspecified; G40.89 Other seizures; J90 Pleural effusion, not elsewhere classified; G92 Toxic encephalopathy; D69.6 Thrombocytopenia, unspecified; Z99.2 Dependence on renal dialysis; R19.7 Diarrhea, unspecified; R10.31 Right lower quadrant pain; M32.14 Glomerular disease in systemic lupus erythematosus; B00.1 Herpesviral vesicular dermatitis; F41.8 Other specified anxiety disorders
CPT/HCPCS: 36415; 36569; 70450; 70551; 71045; 71275; 76937; 80048; 80053; 80307; 82945; 82962; 83605; 83735; 84100; 84157; 84484; 84703; 85025; 85610; 85730; 86592; 86703; 86704; 86706; 87040; 87070; 87075; 87081; 87340; 87400; 87529; 89051; 90935; 92526; 92610; 93005; 93308; 95819; 96372; 96374; 96375; 97110; 97162; 99282; C9113; J0133; J0360; J1170; J1200; J1644; J2060; J7512; J7517; Q9967

== ENCOUNTER 2018-12-13 04:43 | Observation (INO) | payer MEDICARE, OTHER ==
[~2018-12-13] VITALS: Ht 144.8 cm; Wt 44.6 kg
[2018-12-13] VITALS (22 sets, daily range): BP systolic 117–161; BP diastolic 74–105; PULSE 71–93; RESP 18–19; Ht 144.8 cm; Wt 44.6 kg
[~2018-12-13 04:43] MED LIST changes: -ACYC800T5 PO; -CARV6.2579 PO; -GENT100P4 IV; -IBUP800T48 PO; -LACT1CAP28 PO; -LAS20 PO; +PRED5TAB PO; -TRAM50TA PO; -VALA10004 PO
--- NOTE | 2018-12-13 05:49 | ERD ---
ER Documentation Chief Complaint Chief Complaint c/o lt sided cp and sob x1 hr, dialysis pt HPI This is a very pleasant 33-year-old female complains of some chest pain shortness breath for 1 hour. Patient is a dialysis patient pain is mild to moderate intensity no exacerbating relieving factors. History of DVT and cardiac disease. ROS All systems reviewed and are negative except as per history of present illness. Medications Home Meds Active Scripts Carvedilol* (Carvedilol*) 25 Mg Tablet, 50 MG PO Q12, #60 TAB Prov:FARHAD LEZAMA. 11/23/18 Diphenhydramine Hcl* (Benadryl*) 25 Mg Cap, 25 MG PO Q6 PRN for ITCHING/RASH, #30 TAB Prov:PASILARORYFADY 11/16/18 Tramadol HCl (Tramadol HCl) 50 Mg Tablet, 50 MG PO Q4 PRN for severe pain, #6 TAB Prov:FADY ADAM 11/16/18 Nifedipine (Procardia Xl) 60 Mg Tab.er.24, 60 MG PO BID for 30 Days, #60 TAB 2 Refills Prov:FARHAD LEZAMA. 10/30/18 Sertraline Hcl* (Sertraline Hcl*) 25 Mg Tablet, 25 MG PO DAILY for anxiety, #30 TAB Prov:FARHAD LEZAAM . 10/30/18 Hydroxyzine Hcl* (Atarax*) 25 Mg Tab, 50 MG PO Q8H PRN for ITCHING, #30 TAB Prov:FARHAD LEZAMA . 10/30/18 Pantoprazole* (Pantoprazole*) 40 Mg Tablet., 40 MG PO DAILY, #30 TAB 2 Refills Prov:JEMMA LEZAMAHannah TitusFabrizio 10/30/18 Clonidine Hcl* (Catapres*) 0.1 Mg Tablet, 0.1 MG PO BID for 10 Days, #20 TAB 1 Refill Prov:GIANCARLO NOGUERA MD 10/19/18 Aspirin* (Aspirin* (EC)) 81 Mg Tablet., 81 MG PO DAILY for 30 Days, #30 otc Prov:GIANCARLO NOGUERA MD 09/24/18 Reported Medications Prednisone* (Prednisone*) 5 Mg Tab, 5 MG PO DAILY, TAB 11/16/18 Mycophenolate Mofetil* (Mycophenolate Mofetil*) 500 Mg Tablet, 1000 MG PO BID, TAB TAKE 2 TABLET BY MOUTH EVERY MORNING AND EVENING 06/30/18 Hydroxychloroquine Sulfate* (Hydroxychloroquine Sulfate*) 200 Mg Tablet, 200 MG PO DAILY, TAB TAKE 1 TAB BY MOUTH EVERY TUESDAY-Tuesday06/30/18 Discontinued Reported Medications Metoclopramide* (Reglan*) 10 Mg Tablet, 10 MG PO Q6H PRN for NAUSEA AND OR VOMITING, TAB 09/15/18 Discontinued Scripts Acetaminophen* (Tylenol*) 325 Mg Tablet, 650 MG PO Q6H PRN for PAIN LEVEL 1-3 OR FEVER for 1 Day, TAB Prov:GIANCARLO NOGUERA MD 09/24/18 Losartan Potassium* (Cozaar*) 50 Mg Tablet, 50 MG PO BID, #60 TAB Prov:VIRGINIA MUSA 08/09/18 Allergies Allergies: Coded Allergies: adhesive tape (Verified Allergy, Unknown, 12/13/18) hydrocodone (Unverified Allergy, Unknown, paralysis, 12/13/18) PMhx/Soc History of Surgery: No Anesthesia Reaction: No Hx Neurological Disorder: No Hx Respiratory Disorders: Yes (PNA) Hx Cardiac Disorders: No (HTN, [place] 07/2018) Hx Psychiatric Problems: Yes (Anxiety) Hx Miscellaneous Medical Probl: Yes (Lupus) Hx Alcohol Use: No Hx Substance Use: No Hx Tobacco Use: No Physical Exam Vitals Vital Signs Date Temp Pulse Resp B/P (MAP) Pulse Ox O2 O2 Flow FiO2 Time Delivery Rate 12/13/18 98.5 85 19 173/90 100 04:45 (117) Physical Exam Const: No acute distress Head: Atraumatic Eyes: Normal Conjunctiva ENT: Normal External Ears, Nose and Mouth. Neck: Full range of motion. No meningismus. Resp: Clear to auscultation bilaterally Cardio: Regular rate and rhythm, no murmurs Abd: Soft, non tender, non distended. Normal bowel sounds Skin: No petechiae or rashes Back: No midline or flank tenderness Ext: No cyanosis, or edema Neur: Awake and alert Psych: Normal Mood and Affect Procedures/MDM EKG: Rate/Rhythm: [Normal Sinus Rhythm] QRS, ST, T-waves: [No changes consistent w/ acute ischemia] Impression: [No evidence of ischemia or arrhythmia]\ Chest X-ray 1V Interpreted by me: Soft Tissue: No acute abnormalities Bones: No acute abnormalities Mediastinum/Cardiac Silhouette/Lungs: [No acute abnormalities] Patient's symptoms are concerning for cardiac cause will require inpatient workup and continuous monitoring. Further w/u for ischemia, arrhythmia, PE or dissection will be deferred to the inpatient team. Accepting Care Team: Current data and ongoing care discussed. Time: 5:50 AM Primary Provider: Dr. Herbert Consulting: Deferred to inpatient team Outstanding Data: none Departure Diagnosis: Primary Impression: Chest pain Chest pain type: unspecified Qualified Codes: R07.9 - Chest pain, unspecified Condition: Serious TERRI CURRAN Dec 13, 2018 05:49
[2018-12-13] MEDS ORDERED: morphine 4 MG/ML VIAL IV STA (06:32)
[2018-12-13] MEDS: ONDANSETRON 4 MG INJ IV PRN (08:47)
[2018-12-13] MEDS ORDERED: NITROGLYCERIN (SL) 0.4 MG TAB SL PRN (09:00)
[2018-12-13] MEDS ORDERED: DOCUSATE SODIUM 100 MG CAP PO PRN (09:00)
[2018-12-13] MEDS ORDERED: morphine 2 MG INJ IV PRN (09:00)
[2018-12-13] MEDS ORDERED: NACL 0.9% 3 ML SYG IV SCH (09:00)
[2018-12-13] MEDS ORDERED: ONDANSETRON 4 MG INJ IV PRN (09:00)
[2018-12-13] MEDS ORDERED: ACETAMINOPHEN 325 MG TAB PO PRN (09:00)
[2018-12-13] MEDS ORDERED: hydrOXYzine HCL 25 MG TAB PO PRN (09:00)
--- NOTE | 2018-12-13 09:06 | CONS ---
Assessment/Plan Assessment/Plan Assessment/Plan (Daily) 1. acute pulmonary edema due to acute fluid overload 2. Acute fluid overload 3. Accelerated HTN 4. ESRD on HD Three times a week 5. H/o HTN 6. H/o HL 7. h/o Lupus Plan: seen iN tele floor, resume nifedipine Xl 60mg BID, add clonidine, Add hydralazine 100mg pO BID will paln for emegent HD today and Also tomorrow ( which will be her shceduled HD) pt regualr HD schedule is TTS at [facility], will change HD scheduled to 4 times a week now High Resolution CT chest showed pulmonary edema, no Interstitial lung disease Thanks for consultation, I will continue to follow up Consultation Date/Type/Reason Admit Date/Time Dec 13, 2018 at 05:48 Date of Consultation: Dec 13, 2018 Type of Consult NEPHROLOGY Reason for Consultation acute fluid overload, CHF Requesting Provider: VALERIA PETER NP Date/Time of Note DATE: 12/13/18 TIME: 09:06 Hx of Present Illness 33-year-old female with a history of lupus, ESRD on hemodialysis Tuesday, , Tuesday, hypertension, who is well-known to our hospitalist service with multiple hospitalization, recently discharged a week ago from here secondary to volume overload/pulmonary edema, presented back with chest pain, shortness of breath, uncontrolled blood pressure readings on daytime in the 200s. Patient did not miss any dialysis sessions. She denied palpitation, nausea, diaphoresis, vomiting, abdominal pain, loss of consciousness, dizziness, numbness, tingling or other constitutional symptoms. In the emergency room, patient was noted with hemoglobin 9.4, hematocrit 30.9, platelet 117, potassium 5.2, BUN 22, and creatinine 5.0. Patient also had elevated BNP 28,300. Chest x-ray showed improvement in pulmonary vascular congestion from prior study. Vital signs with blood pressure 173/90. In the emergency room, patient was given morphine sulfate 4 mg. Initial troponin negative. pt gets admitted for fluid overload, pulmonary edema and renal has been consulted for emergent HD need. Constitutional: no complaints Eyes: no complaints ENT: no complaints Respiratory: cough, pleuritic pain, shortness of breath Gastrointestinal: no complaints Genitourinary: no complaints Musculoskeletal: no complaints Skin: no complaints Neurologic: no complaints Endocrine: no complaints Lymphatic: no complaints Psychological: no complaints Immunologic: no complaints Past Medical History Medical History: high cholesterol, hypertension, other (Lupus, ESRD on HD ) Home Meds Active Scripts Carvedilol* (Carvedilol*) 25 Mg Tablet, 50 MG PO Q12, #60 TAB Prov:FARHAD LEZAMA. 11/23/18 Diphenhydramine Hcl* (Benadryl*) 25 Mg Cap, 25 MG PO Q6 PRN for ITCHING/RASH, #30 TAB Prov:EMILIEILAFADY VALADEZ 11/16/18 Tramadol HCl (Tramadol HCl) 50 Mg Tablet, 50 MG PO Q4 PRN for severe pain, #6 TAB Prov:FADY ADAM 11/16/18 Nifedipine (Procardia Xl) 60 Mg Tab.er.24, 60 MG PO BID for 30 Days, #60 TAB 2 [facility] Prov[facility] 10/30/18 Sertraline Hcl* (Sertraline Hcl*) 25 Mg Tablet, 25 MG PO DAILY for anxiety, #30 TAB Prov:[facility]. 10/30/18 Hydroxyzine Hcl* (Atarax*) 25 Mg Tab, 50 MG PO Q8H PRN for ITCHING, #30 TAB Prov[facility]. 10/30/18 Pantoprazole* (Pantoprazole*) 40 Mg Tablet., 40 MG PO DAILY, #30 TAB 2 Refills Prov:[facility] 10/30/18 Clonidine Hcl* (Catapres*) 0.1 Mg Tablet, 0.1 MG PO BID for 10 Days, #20 TAB 1 Refill Prov:GIANCARLO NOGUERA MD 10/19/18 Aspirin* (Aspirin* (EC)) 81 Mg Tablet., 81 MG PO DAILY for 30 Days, #30 otc Prov:GIANCARLO NOGUERA MD 09/24/18 Reported Medications Prednisone* (Prednisone*) 5 Mg Tab, 5 MG PO DAILY, TAB 11/16/18 Mycophenolate Mofetil* (Mycophenolate Mofetil*) 500 Mg Tablet, 1000 MG PO BID, TAB TAKE 2 TABLET BY MOUTH EVERY MORNING AND EVENING 06/30/18 Hydroxychloroquine Sulfate* (Hydroxychloroquine Sulfate*) 200 Mg Tablet, 200 MG PO DAILY, TAB TAKE 1 TAB BY MOUTH EVERY TUESDAY-Tuesday06/30/18 Discontinued Reported Medications Metoclopramide* (Reglan*) 10 Mg Tablet, 10 MG PO Q6H PRN for NAUSEA AND OR VOMITING, TAB 09/15/18 Discontinued Scripts Acetaminophen* (Tylenol*) 325 Mg Tablet, 650 MG PO Q6H PRN for PAIN LEVEL 1-3 OR FEVER for 1 Day, TAB Prov:GIANCARLO NOGUERA MD 09/24/18 Losartan Potassium* (Cozaar*) 50 Mg Tablet, 50 MG PO BID, #60 TAB Prov:VIRGINIA MUSA 08/09/18 Medications Current Medications Ondansetron HCl (Zofran Inj) 4 mg Q6H PRN IV NAUSEA AND/OR VOMITING Last administered on 12/13/18at 08:47; Admin Dose 4 MG; Start 12/13/18 at 08:35 Allergies: Coded Allergies: adhesive tape (Verified Allergy, Unknown, 12/13/18) hydrocodone (Unverified Allergy, Unknown, paralysis, 12/13/18) Past Surgical History Past Surgical Hx: other (R chest permacath ) Family History Significant Family History: no pertinent family hx Social History Alcohol Use: none Smoking Status: Never smoker Drug Use: none Exam/Review of Systems Exam Vitals Vital Signs Date Temp Pulse Resp B/P (MAP) Pulse Ox O2 O2 Flow FiO2 Time Delivery Rate 12/13/18 86 07:54 12/13/18 14 125/85 98 Room Air 06:30 (98) 12/13/18 98.2 06:11 Constitutional: alert Psych: no complaints Head: normocephalic Eyes: nl conjunctiva ENMT: nl external ears & nose Neck: supple, non-tender Respiratory: congested cough, crackles/rales, diminished breath sounds Cardiovascular: regular rate and rhythm Gastrointestinal: soft, non-tender Musculoskeletal: nl extremities to inspection, nl gait and stance Extremities: normal pulses Neurological: BOW STRING MAKER II-XII intact Skin: nl turgor Lymph: nl lymph nodes Results Result Diagram: 12/13/18 0601 12/13/18 0601 Results 24hrs Laboratory Tests Test 12/13/18 06:01 White Blood Count 5.3 # Red Blood Count 2.93 L Hemoglobin 9.4 L Hematocrit 30.9 L Mean Corpuscular Volume 105.5 H Mean Corpuscular Hemoglobin 32.1 Mean Corpuscular Hemoglobin Concent 30.4 L Red Cell Distribution Width 18.1 H Platelet Count 117 #L Mean Platelet Volume 11.8 H Immature Granulocytes % 0.800 H Neutrophils % 61.2 Lymphocytes % 22.5 Monocytes % 14.0 H Eosinophils % 1.1 Basophils % 0.4 Nucleated Red Blood Cells % 0.0 Immature Granulocytes # 0.040 H Neutrophils # 3.3 Lymphocytes # 1.2 Monocytes # 0.7 Eosinophils # 0.1 Basophils # 0.0 Nucleated Red Blood Cells # 0.0 Sodium Level 140 Potassium Level 5.2 H Chloride Level 103 Carbon Dioxide Level 26 Anion Gap 11 Blood Urea Nitrogen 22 H Creatinine 5.00 H Est Glomerular Filtrat Rate mL/min 10 L Glucose Level 77 Calcium Level 9.1 Total Bilirubin 0.1 L Direct Bilirubin 0.00 Indirect Bilirubin 0.1 Aspartate Amino Transf (AST/SGOT) 25 Alanine Aminotransferase (ALT/SGPT) 12 L Alkaline Phosphatase 83 Troponin I < 0.012 B-Type Natriuretic Peptide 76769 H Total Protein 7.7 Albumin 4.1 Globulin 3.60 H Albumin/Globulin Ratio 1.13 Medications Medication Current Medications Ondansetron HCl (Zofran Inj) 4 mg Q6H PRN IV NAUSEA AND/OR VOMITING Last administered on 12/13/18at 08:47; Admin Dose 4 MG; Start 12/13/18 at 08:35 ARTURO AMADOR MD Dec 13, 2018 09:06
--- NOTE | 2018-12-13 09:27 | HP ---
Date/Time of Note Date/Time of Note DATE: 12/13/18 TIME: 09:14 Assessment/Plan VTE Prophylaxis SCD applied (from Nsg): Yes Pharmacological prophylaxis: NA/contraindicated Pharm contraindication: low risk/ambulating Lines/Catheters IV Catheter Type (from Nrsg): Saline Lock Assessment/Plan Hospital Course SUBJECTIVE: Lying in bed comfortably, having mild headache. Otherwise no acute distress. OBJECTIVE: Vital signs-see below PHYSICAL EXAM: Constitutional: Well-developed, adequately built, lying in bed comfortably. Psych: nl mood/affect, no complaints Head: atraumatic, normocephalic Eyes: nl conjunctiva, nl sclera ENMT: mucosa pink and moist, nl external ears & nose Neck: non-tender, supple Respiratory: clear to auscultation, normal air movement Cardiovascular: nl pulses, regular rate and rhythm Gastrointestinal: non-tender, soft, bowel sounds active in all 4 quadrants. Musculoskeletal/extremities: nl extremities to inspection, motor strength equal bilaterally, no focal deficit. Normal pulses,no cyanosis, no edema. Neurological: Alert oriented 3,nl speech, nl strength Skin: +Lupus pigmentation. nl turgor ASSESSMENT/PLAN: 33-year-old female with ESRD, on dialysis Tuesday, , Tuesday, hypertension, here with chest pain/shortness of breath/uncontrolled hypertension. 1. Chest pain in light of uncontrolled HTN -According to patient, her blood pressure on daytime ranges from 200s and nighttime is controlled. Most likely chest pain is attributed by hypertension. -We will do a complete ACS workup including 3 sets of troponin, serial EKG. -Aspirin prophylaxis, PRN nitroglycerin 2. Hypertension -Not well controlled -I will increase frequency of clonidine to 3 times daily for daytime blood pressure control. After discussion with pre fabricator, we will also put patient on hydralazine 100 mg twice daily. -Cont. current dose of Coreg and nifedipine. 3. ESRD, hemodialysis -Dialysis schedule Tuesday, , Tuesday. Will consult nephrology for management. -Monitor renal function but 4. Anemia of ESRD -Stable H&H. Epogen per nephrology if indicated 5. SLE -Stable. Continue home meds DVT prophylaxis: SCDs PUD prophylaxis: PPI CODE STATUS: Full code Diet: Renal diet. Rest of the management depend on hospital course. Approximately 60 minutes was spent on this history and physical. Patient was seen in collaboration with Result Diagram: 12/13/18 0601 12/13/18 0601 Results 24hrs Laboratory Tests Test 12/13/18 06:01 White Blood Count 5.3 # Red Blood Count 2.93 L Hemoglobin 9.4 L Hematocrit 30.9 L Mean Corpuscular Volume 105.5 H Mean Corpuscular Hemoglobin 32.1 Mean Corpuscular Hemoglobin Concent 30.4 L Red Cell Distribution Width 18.1 H Platelet Count 117 #L Mean Platelet Volume 11.8 H Immature Granulocytes % 0.800 H Neutrophils % 61.2 Lymphocytes % 22.5 Monocytes % 14.0 H Eosinophils % 1.1 Basophils % 0.4 Nucleated Red Blood Cells % 0.0 Immature Granulocytes # 0.040 H Neutrophils # 3.3 Lymphocytes # 1.2 Monocytes # 0.7 Eosinophils # 0.1 Basophils # 0.0 Nucleated Red Blood Cells # 0.0 Sodium Level 140 Potassium Level 5.2 H Chloride Level 103 Carbon Dioxide Level 26 Anion Gap 11 Blood Urea Nitrogen 22 H Creatinine 5.00 H Est Glomerular Filtrat Rate mL/min 10 L Glucose Level 77 Calcium Level 9.1 Total Bilirubin 0.1 L Direct Bilirubin 0.00 Indirect Bilirubin 0.1 Aspartate Amino Transf (AST/SGOT) 25 Alanine Aminotransferase (ALT/SGPT) 12 L Alkaline Phosphatase 83 Troponin I < 0.012 B-Type Natriuretic Peptide 37490 H Total Protein 7.7 Albumin 4.1 Globulin 3.60 H Albumin/Globulin Ratio 1.13 HPI/ROS Admit Date/Time Admit Date/Time Dec 13, 2018 at 05:48 Hx of Present Illness 33-year-old female with a history of lupus, ESRD on hemodialysis Tuesday, , Tuesday, hypertension, who is well-known to our hospitalist service with multiple hospitalization, recently discharged a week ago from here secondary to volume overload/pulmonary edema, presented back with chest pain, shortness of breath, uncontrolled blood pressure readings on daytime in the 200s. Patient did not miss any dialysis sessions. She denied palpitation, nausea, diaphoresis, vomiting, abdominal pain, loss of consciousness, dizziness, numbness, tingling or other constitutional symptoms. In the emergency room, patient was noted with hemoglobin 9.4, hematocrit 30.9, platelet 117, potassium 5.2, BUN 22, and creatinine 5.0. Patient also had elevated BNP 28,300. Chest x-ray showed improvement in pulmonary vascular congestion from prior study. Vital signs with blood pressure 173/90. In the emergency room, patient was given morphine sulfate 4 mg. Initial troponin negative. ROS A 12 point review of system was assessed and is negative other than what is mentioned in the HPI. PMH/Family/Social Past Medical History See HPI Medications Current Medications Ondansetron HCl (Zofran Inj) 4 mg Q6H PRN IV NAUSEA AND/OR VOMITING Last administered on 12/13/18at 08:47; Admin Dose 4 MG; Start 12/13/18 at 08:35 Coded Allergies: adhesive tape (Verified Allergy, Unknown, 12/13/18) hydrocodone (Unverified Allergy, Unknown, paralysis, 12/13/18) Past Surgical History None Past Surgical Hx: other Family History Significant Family History: no pertinent family hx Social History Patient denied history of alcohol, smoking or illicit drug use. Smoking Status: Never smoker Exam/Review of Systems Vital Signs Vitals Vital Signs Date Temp Pulse Resp B/P (MAP) Pulse Ox O2 O2 Flow FiO2 Time Delivery Rate 12/13/18 86 07:54 12/13/18 14 125/85 98 Room Air 06:30 (98) 12/13/18 98.2 06:11 VALERIA PETER NP Dec 13, 2018 09:26
[2018-12-13] MEDS ORDERED: SODIUM CHLORIDE 0.9% 1L BAG IV PRN (09:30)
[2018-12-13] MEDS ORDERED: ALBUMIN HUMAN 25% 100 ML IV PRN (09:30)
[2018-12-13] MEDS ORDERED: HEPARIN 1000 UNITS/ML 10 ML INJ CATHETER SCH (09:30)
[2018-12-13] MEDS: ASPIRIN (EC) 81 MG TAB PO SCH (09:39)
[2018-12-13] MEDS: predniSONE 5 MG TAB PO SCH (10:19)
[2018-12-13] MEDS: SERTRALINE 50 MG TAB PO SCH (10:20)
[2018-12-13] MEDS: NIFEdipine (XL) 60 MG TAB PO SCH ×2 (10:21→20:50)
--- NOTE | 2018-12-13 10:36 | NUR ---
RN NOTES: SPOKE WITH MEGAN FROM [facility] FOR PT TO HAVE HD STAT TODAY AND ROUTINE TOMORROW CONFIRMATION FOR TODAY 12/13: [id number] TOMORROW'S CONFIRMATION 12/14: [id number]
[2018-12-13] MEDS: MYCOPHENOLATE 250 MG CAP PO SCH ×2 (11:32→20:49)
[2018-12-13] MEDS: HYDROXYCHLOROQUINE 200 MG TAB PO SCH (11:32)
[2018-12-13] MEDS: PANTOPRAZOLE (EC) 40 MG TAB PO SCH (11:32)
--- NOTE | 2018-12-13 13:33 | NUR ---
SW: READMISSION QUESTIONNAIRE SW met with this 33-year-old Peruvian speaking female at bedside for readmission questionnaire. SW familiar with this patient from numerous readmissions. Patient recently discharged home on 11/23/18, readmitted on 12/03/18 under observation, discharged 12/06/18, and readmitted again on 12/13/18 with admitting diagnosis of CP. Patient states that she understood the d/c instructions from her previous admission. Stated that she came back to the hospital because she was having chest pain and SOB. States that she has not followed up with her PMD because she "felt fine." States that she did get all of her medications filled, and denies any issues/ concern regarding her medication. Patient denies any questions/ concerns regarding her medical condition. States that she had fluid overload and needed an extra day of dialysis. States that she currently receives dialysis 3x a week on Tuesdays, and Saturdays, and states that the dialysis center provides transportation. Patient states that she is not yet on the transplant list, stating that she is having some issues with her pancreas that she needs to "clean up." States that she sees a pancreas doctor as an outpatient and is working toward getting on the transplant list. Patient states that she continues to live with her parents and minor children at [id number] [place] [address] [id number] [place] [id number]. States her father is caring for her children during her hospitalization. States that her father is her primary caregiver and primary mode of transportation at home. States that they have applied for [facility]H[employer], and her father had an appointment/ orientation yesterday to become her provider. Plan is for patient to return back home once medically cleared. Patient denies any questions/ concerns at this time. SW remains available as needed throughout patient's treatment process.
[2018-12-13] MEDS ORDERED: METOCLOPRAMIDE 10 MG INJ IV ONE (14:30)
[2018-12-13] MEDS ORDERED: traMADol 50 MG TAB PO PRN ×3 (14:30→15:00)
[2018-12-13] MEDS: DIPHENHYDRAMINE 25 MG CAP PO PRN (16:23)
[2018-12-13] MEDS: HEPARIN 1000 UNITS/ML 10 ML INJ CATHETER SCH (17:35)
--- NOTE | 2018-12-13 18:46 | NUR ---
EOSS: NO ACUTE DISTRESS DURING DAY SHIFT. PT IS AOX4, STEADY GAIT, RESPIRATIONS UNLABORED. PT HAS BEEN C/O SOME CHEST PAIN; PAIN MEDICATIONS HAVE BEEN GIVEN. PT HAD HD TODAY WITH 3L OUT AND WILL ALSO HAVE HD TOMORROW. ALL MEDICATIONS HAVE BEEN GIVEN SCHEDULED. ALL PT'S NEEDS HAVE BEEN MET. WILL ENDORSE TO RACQUET MAKER NURSE.
[2018-12-13] MEDS: morphine 2 MG INJ IV PRN (20:50)
[2018-12-14] VITALS (20 sets, daily range): BP systolic 115–157; BP diastolic 72–101; PULSE 63–79; RESP 18
[2018-12-14] MEDS: morphine 2 MG INJ IV PRN ×3 (01:22→10:33)
--- NOTE | 2018-12-14 07:38 | NUR ---
EOSS: Patient alert and oriented, ambulatory, able to make needs known. Patient c/o of pressure/aching in chest, administered pain medication x3. No other acute events overnight. Patient is scheduled for dialysis today. Encouraged patient to reposition herself often to avoid pressure injuries. Continue with plan of care. Endorsed to AM nurse.
--- NOTE | 2018-12-14 08:44 | NUR ---
Nutrition Consult: Visited pt's room, pt alert, being dialyzed. Pt reports a little bit of nausea yesterday.She has issues with her blood pressure, discussed that following her renal diet with low sodium restrictions is also beneficial for BP. Discussed using herbs and pepper to help season foods and to try and read the nutrition labels on products bought from the store, since most of the time they have higher amounts of sodium. Pt states her dad cooks for her mostly, offered a handout on tips for pt's on dialysis and encouraged her to have her dad review it. Pt receptive and accepted handout. Also offered a novasource supplement, but pt states she is probably discharging later today. Will have one sent at lunch time just in case. RD Recommendation 1. Novasource x1 day @ lunch
[2018-12-14] MEDS: ONDANSETRON 4 MG INJ IV PRN (09:02)
--- NOTE | 2018-12-14 10:04 | NUR ---
ADAM NOTE RECEIVED ORDER TO ARRANGE TO [facility], PT IS ALREADY ON SERVICE WITH [facility] AND ADAM CONTACTED LONG [phone] AND MADE HIM AWARE AND CARE WILL RESUME AT DISCHARGE. RAJESH MEDINA RN,[facility] EXT [phone] Addendum: 12/14/18 at 1012 by FRANCI MEDINA RN, CM [facility] [phone] FAX [phone]
--- NOTE | 2018-12-14 10:11 | CONS ---
Assessment/Plan Assessment/Plan Assessment/Plan (Daily) 1. acute pulmonary edema due to acute fluid overload 2. Acute fluid overload 3. Accelerated HTN 4. ESRD on HD Three times a week 5. H/o HTN 6. H/o HL 7. h/o Lupus Plan: nifedipine Xl 60mg BID, add clonidine, hydralazine 100mg pO BID HD today pt regualr HD schedule is TTS at [facility], will change HD scheduled to 4 times a week now High Resolution CT chest showed pulmonary edema, no Interstitial lung disease ok to d/c home after HD today Consultation Date/Type/Reason Admit Date/Time Dec 13, 2018 at 05:48 Initial Consult Date 12/13/18 Type of Consult NEPHROLOGY Requesting Provider: VALERIA PETER NP Date/Time of Note DATE: 12/14/18 TIME: 10:11 Exam/Review of Systems Exam Vitals Vital Signs Date Temp Pulse Resp B/P (MAP) Pulse Ox O2 O2 Flow FiO2 Time Delivery Rate 12/14/18 74 136/87 98 Room Air 09:34 (103) 12/14/18 98.4 18 07:42 Intake and Output 12/13/18 12/13/18 12/14/18 1515:00 23:00 07:00 IntakeIntake Total 200 ml 300 ml OutputOutput Total 3400 ml BalanceBalance -3200 ml 300 ml Results Result Diagram: 12/14/18 0529 12/14/18 0529 Results 24hrs Laboratory Tests Test 12/13/18 18:34 12/14/18 05:29 Creatine Kinase 21 L Creatine Kinase Index 1.2 Creatinine Kinase MB (Mass) 0.25 Troponin I < 0.012 White Blood Count 3.7 #L Red Blood Count 2.70 L Hemoglobin 8.6 L Hematocrit 28.4 L Mean Corpuscular Volume 105.2 H Mean Corpuscular Hemoglobin 31.9 Mean Corpuscular Hemoglobin Concent 30.3 L Red Cell Distribution Width 18.6 H Platelet Count 119 L Mean Platelet Volume 11.2 H Immature Granulocytes % 0.500 H Neutrophils % 46.1 Lymphocytes % 37.0 Monocytes % 15.9 H Eosinophils % 0.0 Basophils % 0.5 Nucleated Red Blood Cells % 0.0 Immature Granulocytes # 0.020 Neutrophils # 1.7 Lymphocytes # 1.4 Monocytes # 0.6 Eosinophils # 0.0 Basophils # 0.0 Nucleated Red Blood Cells # 0.0 Sodium Level 136 Potassium Level 5.1 Chloride Level 96 L Carbon Dioxide Level 31 Anion Gap 9 Blood Urea Nitrogen 17 Creatinine 3.61 #H Est Glomerular Filtrat Rate mL/min 14 L Glucose Level 73 Calcium Level 9.1 Phosphorus Level 3.8 Magnesium Level 1.9 Thyroid Stimulating Hormone (TSH) 0.722 Medications Medication Current Medications Ondansetron HCl (Zofran Inj) 4 mg Q6H PRN IV NAUSEA AND/OR VOMITING Last administered on 12/14/18 09:02; Admin Dose 4 MG; Start 12/13/18 at 08:35 Albumin Human 100 ml @ 100 mls/hr WITH DIALYSIS PRN IV SBP <90 DURING DIALYSIS; Start 12/13/18 at 09:30 Sodium Chloride (NS) -To prime the dialy... DIRECTED FOR HD PRN IV HD; Start 12/13/18 at 09:30 Aspirin (Halfprin) 81 mg DAILY PO Last administered on 12/13/18 09:39; Admin Dose 81 MG; Start 12/13/18 at 09:00 Carvedilol (Coreg) 50 mg Q12 PO Last administered on 12/13/18 20:51; Admin Dose 50 MG; Start 12/13/18 at 09:00 Diphenhydramine HCl (Benadryl) 25 mg Q6 PRN PO ITCHING/RASH Last administered on 12/13/18 16:23; Admin Dose 25 MG; Start 12/13/18 at 09:00 Hydroxychloroquine Sulfate (Plaquenil) 200 mg DAILY PO Last administered on 12/13/18 11:32; Admin Dose 200 MG; Start 12/13/18 at 09:00 Hydroxyzine HCl (Atarax) 50 mg Q8H PRN PO ITCHING; Start 12/13/18 at 09:00 Mycophenolate Mofetil (Cellcept) 1,000 mg BID PO Last administered on 12/13/18 20:49; Admin Dose 1,000 MG; Start 12/13/18 at 09:00 Nifedipine (Procardia Xl) 60 mg BID PO Last administered on 12/13/18 20:50; Admin Dose 60 MG; Start 12/13/18 at 09:00 Pantoprazole (Protonix Tab) 40 mg DAILY PO Last administered on 12/13/18 11:32; Admin Dose 40 MG; Start 12/13/18 at 09:00 Prednisone (Prednisone) 5 mg DAILY PO Last administered on 12/13/18 10:19; Admin Dose 5 MG; Start 12/13/18 at 09:00 Sertraline HCl (Zoloft) 25 mg DAILY PO Last administered on 12/13/18 10:20; Admin Dose 25 MG; Start 12/13/18 at 09:00 Clonidine (Catapres) 0.1 mg TID PO Last administered on 12/13/18 20:50; Admin Dose 0.1 MG; Start 12/13/18 at 09:00 IV Flush (NS 3 ml) 3 ml PER PROTOCOL IV ; Start 12/13/18 at 09:00 Acetaminophen (Tylenol Tab) 650 mg Q6H PRN PO .PAIN 1-3 OR TEMP Last administered on 12/13/18 09:39; Admin Dose 650 MG; Start 12/13/18 at 09:00 Docusate Sodium (Colace) 100 mg Q12H PRN PO .CONSTIPATION; Start 12/13/18 at 09:00 Nitroglycerin (Nitroglycerin (Sl Tab) 0.4 Mg) 1 tab Q5M PRN SL ANGINA; Start 12/13/18 at 09:00 Tramadol HCl (Ultram) 50 mg Q12H PRN PO MODERATE PAIN LEVEL 4-6 Last administered on 12/13/18 18:41; Admin Dose 50 MG; Start 12/13/18 at 15:00 Heparin Sodium (Porcine) (Heparin (1000 Units/ml)) 4,500 unit PRN CATHETER Last administered on 12/13/18 17:35; Admin Dose 4,500 UNIT; Start 12/13/18 at 15:30; Stop 12/20/18 at 15:29 Morphine Sulfate (morphine) 2 mg Q4H PRN IV SEVERE PAIN LEVEL 7-10 Last administered on 12/14/18 06:26; Admin Dose 2 MG; Start 12/13/18 at 20:30 ARTURO AMADOR MD Dec 14, 2018 10:11
--- NOTE | 2018-12-14 10:17 | PDOCDIS ---
Discharge Instructions CONDITION [id number] Patient Condition: [id number] Stable HOME CARE INSTRUCTIONS: [id number] Your diet recommendation is: [id number] Renal diet FOLLOW UP/APPOINTMENTS Follow-up Plan Follow-up with Dr. Dean in 1 week. Vicente Dean M.D., [facility] [id number] [address] Office Follow-up with hemodialysis clinic. Your hemodialysis days has been changed to 4 days/week which is Tuesday, Tuesday, , Tuesday. Your next dialysis session will be tomorrow. VALERIA PETER NP Dec 14, 2018 10:17
[2018-12-14] MEDS ORDERED: CLON0.1T14 PO (10:19)
--- NOTE | 2018-12-14 10:22 | DS ---
Date/Time of Note Date/Time of Note DATE: 12/14/18 TIME: 10:20 Discharge Summary Admission/Discharge Info Admit Date/Time Dec 13, 2018 at 05:48 Discharge Date/Time Discharge Diagnosis 1. Chest pain in light of uncontrolled HTN.ACS ruled out 2. Hypertension 3. ESRD, hemodialysis 4. Anemia of ESRD 5. SLE Patient Condition: Stable Consults Dr. Dean, micro computer specialist Procedures 12/13/2018. Chest CT IMPRESSION: 1. Slight interval decrease in ground-glass opacities and septal thickening of the bilateral lungs, suggestive of mild pulmonary edema. 2. Mild interval increase in moderate right pleural effusion. Stable left pleural effusion. 3. Unchanged cardiomegaly and small pericardial effusion. 4. No evidence of interstitial lung disease. 12/13/2018. Chest x-ray IMPRESSION: 1. Interval decreased central pulmonary vascular congestion/mild pulmonary edema and bilateral pleural effusions. 2. Cardiomegaly with aortic atherosclerosis. 3. Right Perma-Cath in place. RPTAT: HRSR Hx of Present Illness 33-year-old female with a history of lupus, ESRD on hemodialysis Tuesday, , Tuesday, hypertension, who is well-known to our hospitalist service with multiple hospitalization, recently discharged a week ago from here secondary to volume overload/pulmonary edema, presented back with chest pain, shortness of breath, uncontrolled blood pressure readings on daytime in the 200s. Patient did not miss any dialysis sessions. She denied palpitation, nausea, diaphoresis, vomiting, abdominal pain, loss of consciousness, dizziness, numbness, tingling or other constitutional symptoms. In the emergency room, patient was noted with hemoglobin 9.4, hematocrit 30.9, platelet 117, potassium 5.2, BUN 22, and creatinine 5.0. Patient also had elevated BNP 28,300. Chest x-ray showed improvement in pulmonary vascular congestion from prior study. Vital signs with blood pressure 173/90. In the emergency room, patient was given morphine sulfate 4 mg. Initial troponin negative. Hospital Course 33-year-old female with ESRD, on dialysis Tuesday, , Tuesday, hypertension, here with chest pain/shortness of breath/uncontrolled hypertensi on. Patient was ruled out for acute coronary syndrome with serial troponin and EKG. Her chest pain is mostly contributed by uncontrolled hypertension. Blood pressure medications titrated. Goal blood pressure achieved on Coreg, nifedipine, clonidine 3 times daily. Patient was dialyzed 2 sessions in a row. As per micro computer specialist, her dialysis schedule was changed to 4 days/week Tuesday, , Tuesday and Tuesday. At this time, patient is feeling back to baseline. Labs and vital signs stable. She is ready for outpatient follow-up. Approximately 60 m spent on coordinating the discharge on this patient. Patient was seen in collaboration with . Home Meds Active Scripts Clonidine Hcl* (Catapres*) 0.1 Mg Tablet, 0.1 MG PO TID, #90 TAB Prov:VALERIA PETER NP 12/14/18 Carvedilol* (Carvedilol*) 25 Mg Tablet, 50 MG PO Q12, #60 TAB Prov:FARHAD LEZAMA 11/23/18 Diphenhydramine Hcl* (Benadryl*) 25 Mg Cap, 25 MG PO Q6 PRN for ITCHING/RASH, # 30 TAB Prov:FADY ADAM F 11/16/18 Tramadol HCl (Tramadol HCl) 50 Mg Tablet, 50 MG PO Q4 PRN for severe pain, #6 TAB Prov:FADY ADAM F 11/16/18 Nifedipine (Procardia Xl) 60 Mg Tab.er.24, 60 MG PO BID for 30 Days, #60 TAB 2 Refills Prov:FARHAD LEZAMA 10/30/18 Sertraline Hcl* (Sertraline Hcl*) 25 Mg Tablet, 25 MG PO DAILY for anxiety, #30 TAB Prov:FARHAD LEZAMA 10/30/18 Hydroxyzine Hcl* (Atarax*) 25 Mg Tab, 50 MG PO Q8H PRN for ITCHING, #30 TAB Prov:FARHAD LEZAMA 10/30/18 Pantoprazole* (Pantoprazole*) 40 Mg Tablet., 40 MG PO DAILY, #30 TAB 2 Refills Prov:FARHAD LEZAMA 10/30/18 Aspirin* (Aspirin* (EC)) 81 Mg Tablet.dr, 81 MG PO DAILY for 30 Days, #30 otc Prov:GIANCARLO NOGUERA MD 09/24/18 Reported Medications Prednisone* (Prednisone*) 5 Mg Tab, 5 MG PO DAILY, TAB 11/16/18 Mycophenolate Mofetil* (Mycophenolate Mofetil*) 500 Mg Tablet, 1000 MG PO BID, TAB TAKE 2 TABLET BY MOUTH EVERY MORNING AND EVENING 06/30/18 Hydroxychloroquine Sulfate* (Hydroxychloroquine Sulfate*) 200 Mg Tablet, 200 MG PO DAILY, TAB TAKE 1 TAB BY MOUTH EVERY TUESDAY-Tuesday06/30/18 Discontinued Reported Medications Metoclopramide* (Reglan*) 10 Mg Tablet, 10 MG PO Q6H PRN for NAUSEA AND OR VOMITING, TAB 09/15/18 Discontinued Scripts Clonidine Hcl* (Catapres*) 0.1 Mg Tablet, 0.1 MG PO BID for 10 Days, #20 TAB 1 Refill Prov:GIANCARLO NOGUERA MD 10/19/18 Acetaminophen* (Tylenol*) 325 Mg Tablet, 650 MG PO Q6H PRN for PAIN LEVEL 1-3 OR FEVER for 1 Day, TAB Prov:GIANCARLO NOGUERA MD 09/24/18 Losartan Potassium* (Cozaar*) 50 Mg Tablet, 50 MG PO BID, #60 TAB Prov:VIRGINIA MUSA 08/09/18 Follow-up Plan Follow-up with Dr. Dean in 1 week. [place] [place] [id number] [address] Office Follow-up with hemodialysis clinic. Your hemodialysis days has been changed to 4 days/week which is Tuesday, Tuesday, , Tuesday. Your next dialysis session will be tomorrow. Primary Care Provider Not On Staff Doctor Pending Labs Laboratory Tests Test 12/13/18 18:34 12/14/18 05:29 Creatine Kinase 21 IU/L (23-200) Creatine Kinase Index 1.2 Creatinine Kinase MB 0.25 ng/ml (0.0-2.4) (Mass) Troponin I < 0.012 ng/ml (0.000-0.120) White Blood Count 3.7 10^3/ul (4.8-10.8) Red Blood Count 2.70 10^6/ul (4.20-5.40) Hemoglobin 8.6 g/dl (12.0-16.0) Hematocrit 28.4 % (37.0-47.0) Mean Corpuscular Volume 105.2 fl (82.0-101.0) Mean Corpuscular 31.9 pg (29.0-33.0) Hemoglobin Mean Corpuscular 30.3 g/dl (32.0-37.0) Hemoglobin Concent Red Cell Distribution 18.6 % (11.5-14.5) Width Platelet Count 119 10^3/UL (140-415) Mean Platelet Volume 11.2 fl (7.4-10.4) Immature Granulocytes % 0.500 % (0.001-0.429) Neutrophils % 46.1 % (39.0-77.0) Lymphocytes % 37.0 % (15.0-51.0) Monocytes % 15.9 % (0.0-11.0) Eosinophils % 0.0 % (0.0-7.0) Basophils % 0.5 % (0.0-2.0) Nucleated Red Blood Cells 0.0 /100WBC (0.0-0.0) % Immature Granulocytes # 0.020 10^3/ul (0.0-0.031) Neutrophils # 1.7 10^3/ul (1.6-7.5) Lymphocytes # 1.4 10^3/ul (0.8-2.9) Monocytes # 0.6 10^3/ul (0.3-0.9) Eosinophils # 0.0 10^3/ul (0.0-0.5) Basophils # 0.0 10^3/ul (0.0-0.1) Nucleated Red Blood Cells 0.0 10^3/ul (0.0-0.0) # Sodium Level 136 mmol/L (135-144) Potassium Level 5.1 mmol/L (3.5-5.1) Chloride Level 96 mmol/L (97-110) Carbon Dioxide Level 31 mmol/L (21-31) Anion Gap 9 (5-13) Blood Urea Nitrogen 17 mg/dl (7-20) Creatinine 3.61 mg/dl (0.44-1.00) Est Glomerular Filtrat 14 mL/min (>60) Rate mL/min Glucose Level 73 mg/dl (70-220) Calcium Level 9.1 mg/dl (8.4-10.2) Phosphorus Level 3.8 mg/dl (2.5-4.9) Magnesium Level 1.9 mg/dl (1.7-2.5) Thyroid Stimulating 0.722 MIU/L (0.465-4.680) Hormone (TSH) VALERIA PETER NP Dec 14, 2018 10:22
[2018-12-14] MEDS: DIPHENHYDRAMINE 25 MG CAP PO PRN (11:26)
[2018-12-14] MEDS: HEPARIN 1000 UNITS/ML 10 ML INJ CATHETER SCH (11:28)
[2018-12-14] MEDS: SERTRALINE 50 MG TAB PO SCH (12:36)
[2018-12-14] MEDS: predniSONE 5 MG TAB PO SCH (12:37)
[2018-12-14] MEDS: NIFEdipine (XL) 60 MG TAB PO SCH (12:37)
[2018-12-14] MEDS: ASPIRIN (EC) 81 MG TAB PO SCH (12:37)
[2018-12-14] MEDS: HYDROXYCHLOROQUINE 200 MG TAB PO SCH (12:37)
[2018-12-14] MEDS: PANTOPRAZOLE (EC) 40 MG TAB PO SCH (12:37)
[2018-12-14] MEDS: MYCOPHENOLATE 250 MG CAP PO SCH (12:38)
--- NOTE | 2018-12-14 14:41 | NUR ---
DISCHARGE NOTES: PT IS DISCHARGED HOME. PT IS AOX4, STEADY GAIT, RESPIRATIONS UNLABORED. PT'S IV DC'D WITH TIP INTACT, APPLIED DRESSING AND HELD PRESSURE. DISCHARGE INSTRUCTIONS GIVEN AND EXPLAINED TO PT. PT VERBALIZED UNDERSTANDING OF DISCHARGE INSTRUCTIONS. PT LEFT UNIT BY WHEELCHAIR ESCORTED BY VOLUNTEER. 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
== END 2018-12-14 14:45 | disposition home health service (06) ==
LOC: E/R 04:43 → INTOOBSV 05:48 → 6WM 05:48
PROVIDERS: ADMIT Internal Medicine; ATTEND Internal Medicine
DX: R07.9 Chest pain, unspecified (principal); I12.0 Hypertensive chronic kidney disease with stage 5 chronic kidney disease or end stage renal disease; N18.6 End stage renal disease; Z99.2 Dependence on renal dialysis; D63.1 Anemia in chronic kidney disease; J90 Pleural effusion, not elsewhere classified; M32.9 Systemic lupus erythematosus, unspecified
CPT/HCPCS: 36415; 71045; 71250; 80048; 80053; 82550; 82553; 83735; 83880; 84100; 84443; 84484; 85025; 90935; 93005; 99285; G0378; J1644; J2270; J2405; J2765; J7512; J7517; 99217

== ENCOUNTER 2018-12-20 23:21 | Inpatient (IN) | payer MEDICARE, OTHER ==
[~2018-12-20] VITALS: Ht 154.9 cm; Wt 45.1 kg
[~2018-12-20 23:21] MED LIST changes: -ACET325T33 PO; -LOSA50TA2 PO; -METO10TA92 PO
[2018-12-21] VITALS (65 sets, daily range): BP systolic 114–229; BP diastolic 68–121; PULSE 81–115; RESP 12–26; Ht 154.9 cm; Wt 45.1 kg
--- NOTE | 2018-12-21 00:17 | ERD ---
ER Documentation Chief Complaint Chief Complaint C/O CP AND SOB HPI The patient is a 33-year-old female, presenting to the ER because of acute dyspnea and acute substernal chest pressure that began around 11:30 PM. She had dialysis today, she had similar symptoms previously, she complains of chest pressure/dyspnea with exertion. She was admitted about a week ago for similar symptoms, she denies fever, chills, cough, neck pain, abdominal pain, vomiting, dizzy, diarrhea. She does not smoke nor drink Past medical history: Chronic kidney disease on hemodialysis, hypertension, depression, CAD, SLE, anemia, anxiety Past surgical history: Left upper extremity AV fistula, right chest permacatheter ROS All systems reviewed and are negative except as per history of present illness. Medications Home Meds Active Scripts Clonidine Hcl* (Catapres*) 0.1 Mg Tablet, 0.1 MG PO TID, #90 TAB Prov:VALERIA PETER NP 12/14/18 Carvedilol* (Carvedilol*) 25 Mg Tablet, 50 MG PO Q12, #60 TAB Prov:FARHAD LEZAMA 11/23/18 Diphenhydramine Hcl* (Benadryl*) 25 Mg Cap, 25 MG PO Q6 PRN for ITCHING/RASH, #30 TAB Prov:FADY ADAM 11/16/18 Nifedipine (Procardia Xl) 60 Mg Tab.er.24, 60 MG PO BID for 30 Days, #60 TAB 2 Refills Prov:LISEJEMMAHannah Fabrizio 10/30/18 Sertraline Hcl* (Sertraline Hcl*) 25 Mg Tablet, 25 MG PO DAILY for anxiety, #30 TAB Prov:ELISABETH LEZAMAUNC HEALTH JOHNSTON CLAYTONHannah . 10/30/18 Hydroxyzine Hcl* (Atarax*) 25 Mg Tab, 50 MG PO Q8H PRN for ITCHING, #30 TAB Prov:ELISABETH LEZAMAUNC HEALTH JOHNSTON CLAYTONHannah Fabrizio 10/30/18 Pantoprazole* (Pantoprazole*) 40 Mg Tablet., 40 MG PO DAILY, #30 TAB 2 Refills Prov:LISEELISABETHPILO Fabrizio 10/30/18 Aspirin* (Aspirin* (EC)) 81 Mg Tablet., 81 MG PO DAILY for 30 Days, #30 otc Prov:GIANCARLO NOGUERA MD 09/24/18 Reported Medications Lorazepam* (Lorazepam*) 1 Mg Tablet, 1 MG PO TID PRN for ANXIETY for 14 Days 12/21/18 Temazepam (Restoril) 15 Mg Cap, 15 MG PO QHS PRN for SLEEP for 30 Days 12/21/18 Clonidine* (Cmpd) (Catapres SUSP (PEDIATRIC)*) 100 Mcg/Ml Susp, PO TID for 30 Days 12/21/18 Prednisone* (Prednisone*) 5 Mg Tab, 5 MG PO DAILY, TAB 11/16/18 Mycophenolate Mofetil* (Mycophenolate Mofetil*) 500 Mg Tablet, 1000 MG PO BID, TAB TAKE 2 TABLET BY MOUTH EVERY MORNING AND EVENING 06/30/18 Hydroxychloroquine Sulfate* (Hydroxychloroquine Sulfate*) 200 Mg Tablet, 200 MG PO DAILY, TAB TAKE 1 TAB BY MOUTH EVERY TUESDAY-Tuesday06/30/18 Discontinued Scripts Tramadol HCl (Tramadol HCl) 50 Mg Tablet, 50 MG PO Q4 PRN for severe pain, #6 TAB Prov:FADY ADAM 11/16/18 Clonidine Hcl* (Catapres*) 0.1 Mg Tablet, 0.1 MG PO BID for 10 Days, #20 TAB 1 Refill Prov:GIANCARLO NOGUERA MD 10/19/18 Allergies Allergies: Coded Allergies: adhesive tape (Unverified Allergy, Unknown, 12/21/18) hydrocodone (Unverified Allergy, Unknown, paralysis, 12/21/18) PMhx/Soc History of Surgery: Yes (FISTULA ON L ARM, PERMACATH ON R UPPER CHEST) Anesthesia Reaction: No Hx Neurological Disorder: No Hx Respiratory Disorders: Yes (PNA) Hx Cardiac Disorders: Yes (HTN, IN (2018)) Hx Psychiatric Problems: Yes (ANXIETY) Hx Miscellaneous Medical Probl: Yes (LUPUS) Hx Alcohol Use: No Hx Substance Use: No Hx Tobacco Use: No Smoking Status: Never smoker Physical Exam Vitals Vital Signs Date Temp Pulse Resp B/P (MAP) Pulse Ox O2 O2 Flow FiO2 Time Delivery Rate 12/21/18 106 99 30 01:44 12/21/18 Nasal 2 00:55 Cannula 12/20/18 98.5 72 21 200/115 95 23:46 (143) Physical Exam Const: No acute distress. Head: Atraumatic. Eyes: Normal Conjunctiva. ENT: Normal External Ears, Nose and Mouth. Neck: Full range of motion. No meningismus. Resp: Tachypneic, by basilar crackle Cardio: Regular rate and rhythm. Abd: Soft, non distended, normal bowel sounds, non tender. Skin: No petechiae or rashes. Back: No midline or flank tenderness. Ext: No cyanosis, or edema. Neur: Awake and alert. No focal deficit Psych: Very anxious Result Diagram: 12/21/18 0008 12/21/18 0220 Results 24 hrs Laboratory Tests Test 12/21/18 00:08 White Blood Count 4.2 10^3/ul Red Blood Count 3.11 10^6/ul Hemoglobin 9.8 g/dl Hematocrit 33.1 % Mean Corpuscular Volume 106.4 fl Mean Corpuscular Hemoglobin 31.5 pg Mean Corpuscular Hemoglobin Concent 29.6 g/dl Red Cell Distribution Width 17.4 % Platelet Count 121 10^3/UL Mean Platelet Volume 12.3 fl Immature Granulocytes % 0.200 % Neutrophils % 60.8 % Lymphocytes % 29.0 % Monocytes % 9.1 % Eosinophils % 0.7 % Basophils % 0.2 % Nucleated Red Blood Cells % 0.0 /100WBC Immature Granulocytes # 0.010 10^3/ul Neutrophils # 2.5 10^3/ul Lymphocytes # 1.2 10^3/ul Monocytes # 0.4 10^3/ul Eosinophils # 0.0 10^3/ul Basophils # 0.0 10^3/ul Nucleated Red Blood Cells # 0.0 10^3/ul Sodium Level 138 mmol/L Potassium Level 5.7 mmol/L Chloride Level 105 mmol/L Carbon Dioxide Level 25 mmol/L Anion Gap 8 Blood Urea Nitrogen 21 mg/dl Creatinine 3.32 mg/dl Est Glomerular Filtrat Rate mL/min 16 mL/min Glucose Level 82 mg/dl Calcium Level 9.2 mg/dl Troponin I < 0.012 ng/ml Current Medications Medications Dose Sig/Damaso Start Time Status Last (Trade) Ordered Route PRN Stop Time Admin Dose Reason Admin Hydralazine 10 mg ONCE ONCE 12/21/18 DC 12/21/18 HCl IV 01:00 00:57 (Apresoline) 12/21/18 01:01 Morphine 2 mg ONCE STAT 12/21/18 DC 12/21/18 Sulfate IV 00:56 01:02 (morphine) 12/21/18 00:57 Ondansetron 4 mg ONCE STAT 12/21/18 DC 12/21/18 HCl (Zofran IV 00:56 01:02 Inj) 12/21/18 00:57 Procedures/MDM [place] [id number] Radiology Main Line: [phone] DIAGNOSTIC IMAGING REPORT Patient: HUMERA THOMAS : 1985 Age: 33 Sex: F MR #: [id number] DOS: 12/21/18 0046 Ordering MD: NIRAV CLARK MD Location: E/R Room/Bed: PROCEDURE: XR Chest. CLINICAL INDICATION: Chest pain. TECHNIQUE: Single frontal chest x-ray. COMPARISON: 12/13/2018 FINDINGS: Right internal jugular central line with tip in the junction of the right atrium and SVC is unchanged. Heart is enlarged. There is increase in diffuse interstitial prominence.. There is a small left pleural effusion. There is no pneumothorax. The osseous structures are unremarkable. IMPRESSION: Cardiomegaly. Increased interstitial prominence compatible with increased CHF/pulmonary edema. Small left pleural effusion. Otherwise no change. RPTAT: HMVK .Nirav Ibarra MD, MD Date Time Electronically viewed and signed by .Nirav Ibarra MD, on 12/21/2018 01:25 .K/ CC: NIRAV CLARK MD [id number] EKG: Read by emergency physician Rate/Rhythm: Normal Sinus Rhythm 75 beats/min QRS, ST, T-waves: No ST elevation, no T inversion, SA, LAE, RWA Impression: Abnormal EKG Consultation: I did page her chicken boner Dr. Joao Dean for emergent HD MEDICAL MAKING DECISION: The patient is a 33-year-old female, presenting with acute respiratory failure due to acute pulmonary edema, and hypertensive emergency. O2 saturation is only 90-91% on room air. She was put on BiPAP and she is able to tolerate BiPAP well, she was treated with hydralazine 10 mg IV, Lasix 80 mg IV, nitroglycerin drip for acute hypertensive emergency and acute pulmonary edema, morphine 2 mg IV for pain and Zofran for medical IV for nausea Potassium was elevated at 5.7 however the specimen is hemolyzed, repeat potassium is pending The differential diagnoses considered include but are not limited to asthma, COPD, pneumonia, pulmonary embolus, pleural effusion, congestive heart failure. Critical Care: Time: 35 minutes excluding all billable procedures. Treatments/Evaluations: Close monitoring and treatment of unstable vital signs, cardiorespiratory, and neurologic status, while maintaining tight balance of fluid, respiratory, and cardiac interventions. Departure Diagnosis: Primary Impression: Respiratory failure, acute Additional Impressions: Hypertensive emergency Pulmonary edema Pancytopenia Condition: Critical Comments I discussed the findings with the patient. I discussed the patient with the spitalist Dr Ridley at 1:45 AM. who was made aware of the lab, the treatment, the patient condition and the pending potassium. The patient is admitted to ICU Disclaimer: Inadvertent spelling and grammatical errors are likely due to EHR/dictation software use and do not reflect on the overall quality of patient care. Also, please note that the electronic time recorded on this note does not necessarily reflect the actual time of the patient encounter. NIRAV CLARK MD Dec 21, 2018 00:17
[2018-12-21] MEDS ORDERED: morphine 2 MG INJ IV STA (00:56)
[2018-12-21] MEDS ORDERED: ONDANSETRON 4 MG INJ IV STA (00:56)
[2018-12-21] MEDS ORDERED: hydrALAzine 20 MG INJ IV ONE (01:00)
[2018-12-21] MEDS ORDERED: FUROSEMIDE 40 MG INJ IV ONE (02:00)
[2018-12-21] MEDS ORDERED: NITROGLYCERIN 50 MG/D5W (PMX) 250 ML IV SCH (02:00)
[2018-12-21] MEDS ORDERED: LORA1TAB PO (02:02)
[2018-12-21] MEDS ORDERED: TEMA-106 PO (02:02)
[2018-12-21] MEDS ORDERED: CLOS PO (02:02)
[2018-12-21] MEDS ORDERED: NACL 0.9% 3 ML SYG IV SCH (02:30)
[2018-12-21] MEDS ORDERED: TEMAZEPAM 15 MG PO PRN (02:30)
--- NOTE | 2018-12-21 02:44 | HP ---
Date/Time of Note Date/Time of Note DATE: 12/21/18 TIME: 02:40 Assessment/Plan VTE Prophylaxis Pharmacological prophylaxis: heparin Lines/Catheters IV Catheter Type (from Nrs): Saline Lock Assessment/Plan Hospital Course 33 yo female wtih ESRD and SLE who presents with acute respiratory failure from pulmonary edema in setting of hypertensive emergency Hypertensive emergency: - Nitro drip starting now Acute respiratory failure from pulmonary edema: - Control of blood pressure should help as she is not very overloaded and received HD today - BIPAP as needed ESRD: - Continue HD per Dr Dean SLE: - Continue prednisone 5, mycophenylate 1000 BID and plaquenil To ICU Result Diagram: 12/21/188 12/21/187 Results 24hrs Laboratory Tests Test 12/21/18 00:08 White Blood Count 4.2 L Red Blood Count 3.11 L Hemoglobin 9.8 L Hematocrit 33.1 L Mean Corpuscular Volume 106.4 H Mean Corpuscular Hemoglobin 31.5 Mean Corpuscular Hemoglobin Concent 29.6 L Red Cell Distribution Width 17.4 H Platelet Count 121 L Mean Platelet Volume 12.3 H Immature Granulocytes % 0.200 Neutrophils % 60.8 Lymphocytes % 29.0 Monocytes % 9.1 Eosinophils % 0.7 Basophils % 0.2 Nucleated Red Blood Cells % 0.0 Immature Granulocytes # 0.010 Neutrophils # 2.5 Lymphocytes # 1.2 Monocytes # 0.4 Eosinophils # 0.0 Basophils # 0.0 Nucleated Red Blood Cells # 0.0 Sodium Level 138 Potassium Level 5.7 H Chloride Level 105 Carbon Dioxide Level 25 Anion Gap 8 Blood Urea Nitrogen 21 H Creatinine 3.32 H Est Glomerular Filtrat Rate mL/min 16 L Glucose Level 82 Calcium Level 9.2 Troponin I < 0.012 HPI/ROS Admit Date/Time Admit Date/Time Hx of Present Illness 33 yo female with SLE and ESRD who present with resipratoyr distress Received HD today. Did well following this. When she got home, felt nauseous about 11 PM then developed shortness of breath. Arrived with severe hypertension and respiratory distress. Currently on BIPAP. When i took her off to interview, clearly tachypniec. Only current complaint is SOB. PMH/Family/Social Past Medical History Medical History: renal disease Medications Current Medications Nitroglycerin/ Dextrose 250 ml @ 1.5 mls/hr TITRATE IV Last administered on 12/21/18at 01:57; Admin Dose 1.5 MLS/HR; Start 12/21/18 at 02:00 Aspirin (Halfprin) 81 mg DAILY PO ; Start 12/21/18 at 09:00 Carvedilol (Coreg) 50 mg Q12 PO ; Start 12/21/18 at 09:00 Clonidine (Catapres) 0.1 mg TID PO ; Start 12/21/18 at 09:00 Diphenhydramine HCl (Benadryl) 25 mg Q6 PRN PO ITCHING/RASH; Start 12/21/18 at 02:30 Hydroxychloroquine Sulfate (Plaquenil) 200 mg DAILY PO ; Start 12/21/18 at 09:00 Hydroxyzine HCl (Atarax) 50 mg Q8H PRN PO ITCHING; Start 12/21/18 at 02:30 Lorazepam (Ativan) 1 mg TID PRN PO ANXIETY; Start 12/21/18 at 02:30 Mycophenolate Mofetil (Cellcept) 1,000 mg BID PO ; Start 12/21/18 at 09:00 Nifedipine (Procardia Xl) 60 mg BID PO ; Start 12/21/18 at 09:00 Pantoprazole (Protonix Tab) 40 mg DAILY@0600 PO ; Start 12/21/18 at 06:00 Prednisone (Prednisone) 5 mg DAILY PO ; Start 12/21/18 at 09:00 Sertraline HCl (Zoloft) 25 mg DAILY PO ; Start 12/21/18 at 09:00 Miscellaneous Information 15 mg QHS PRN PO SLEEP; Start 12/21/18 at 02:30; Status UNV Coded Allergies: adhesive tape (Unverified Allergy, Unknown, 12/21/18) hydrocodone (Unverified Allergy, Unknown, paralysis, 12/21/18) Past Surgical History Past Surgical Hx: other Family History Significant Family History: no pertinent family hx Social History Alcohol Use: none Smoking Status: Never smoker Drug Use: none Exam/Review of Systems Vital Signs Vitals Vital Signs Date Temp Pulse Resp B/P (MAP) Pulse Ox O2 O2 Flow FiO2 Time Delivery Rate 12/21/18 106 99 30 01:44 12/21/18 Nasal 2 00:55 Cannula 12/20/18 98.5 21 200/115 23:46 (143) Exam Exam Tachneic Cushingoid facies + JVD Permacath Tachy, regular Tachypneic, mildly labored Clear Soft nt nd Ext without edema MILGROM,EMELY Shepherd MD Dec 21, 2018 02:44
[2018-12-21] MEDS: morphine 2 MG INJ IV PRN ×5 (03:35→20:13)
[2018-12-21] MEDS ORDERED: TEMAZEPAM 15 MG CAP PO PRN (04:15)
[2018-12-21] MEDS ORDERED: ACETAMINOPHEN 500 MG TAB PO ONE (04:49)
[2018-12-21] MEDS: PANTOPRAZOLE (EC) 40 MG TAB PO SCH (06:00)
[2018-12-21] MEDS ORDERED: niCARdipine 25 MG in SOD CHLORIDE 0.9% 240 ML IV SCH (06:30)
[2018-12-21] MEDS ORDERED: niCARdipine-NS 0.1MG/ML DRIP 200 ML IV SCH (06:30)
[2018-12-21] MEDS ORDERED: HYDROXYCHLOROQUINE 200 MG TAB PO SCH ×2 (09:00)
[2018-12-21] MEDS ORDERED: niCARdipine 50 MG in SOD CHLORIDE 0.9% 480 ML IV SCH ×2 (09:03→09:30)
--- NOTE | 2018-12-21 09:13 | PN ---
Date/Time of Note Date/Time of Note DATE: 12/21/18 TIME: 09:08 Assessment/Plan VTE Prophylaxis SCD applied (from Nsg): Yes Pharmacological prophylaxis: heparin Lines/Catheters Urinary Cath still in place: No Assessment/Plan Assessment/Plan 33 yo woman wtih ESRD and SLE who presents with acute respiratory failure from pulmonary edema in setting of hypertensive emergency #Hypertensive emergency: - Continue home anti-hypertensives - nicardipene gtt, will titrate off. - Dialysis per renal. #Acute respiratory failure from pulmonary edema: - Control of blood pressure should help as she is not very overloaded and received HD on Tuesday - Now off BiPAP, on nasal cannula. - dialysis #ESRD: #Hyperkalemia - Continue HD per Dr Dean - Very frequent ED admissions despite four times weekly dialysis. Will consider palliative consult for chronic disease management. #SLE: - Continue prednisone 5, mycophenylate 1000 BID and plaquenil thrice weekly DVT: heparin GI: None Result Diagram: 12/21/18 0719 12/21/18 0220 Subjective 24 Hr Interval Summary Free Text/Dictation No acute overnight events. Maxed on nicardipene gtt with BP about 120/80 this AM Off BiPAP, breathing comfortably on nasal cannula. Nausea, at least one episode of vomiting this morning. Exam/Review of Systems Exam Vitals Vital Signs Date Temp Pulse Resp B/P (MAP) Pulse Ox O2 O2 Flow FiO2 Time Delivery Rate 12/21/18 104 08:00 12/21/18 26 180/99 100 Nasal 2.0 07:00 (126) Cannula 12/21/18 98.6 04:30 12/21/18 30 03:05 Intake and Output 12/20/18 12/20/18 12/21/18 1515:00 23:00 07:00 IntakeIntake Total 42 ml OutputOutput Total 0 ml BalanceBalance 42 ml Exam Gen: Frail appearing thin woman in some discomfort. Eyes: PERRL, no icterus HEENT: Moist mucous membranes, splotchy erythema on face. Neck: No JVD. No lymphadenopathy. Chest: L chest permacath in place. Card: Regular rate and rhythm, no murmurs Pulm: Clear to auscultation bilaterally. Abd: Soft, nontender, nondistended. Ext: LUE AV fistula with bruit. Skin: warm, dry, well perfused. Results Results 24hrs Laboratory Tests Test 12/21/18 00:08 12/21/18 02:20 12/21/18 02:26 12/21/18 07:19 White Blood Count 4.2 L 10.9 #H Red Blood Count 3.11 L 2.78 L Hemoglobin 9.8 L 8.9 L Hematocrit 33.1 L 29.7 L Mean Corpuscular 106.4 H 106.8 H Volume Mean Corpuscular 31.5 32.0 Hemoglobin Mean Corpuscular 29.6 L 30.0 L Hemoglobin Concen t Red Cell 17.4 H 17.2 H Distribution Width Platelet Count 121 L 101 L Mean Platelet 12.3 H 12.1 H Volume Immature 0.200 0.500 H Granulocytes % Neutrophils % 60.8 83.1 H Lymphocytes % 29.0 8.4 L Monocytes % 9.1 7.6 Eosinophils % 0.7 0.1 Basophils % 0.2 0.3 Nucleated Red 0.0 0.0 Blood Cells % Immature 0.010 0.050 H Granulocytes # Neutrophils # 2.5 9.1 H Lymphocytes # 1.2 0.9 Monocytes # 0.4 0.8 Eosinophils # 0.0 0.0 Basophils # 0.0 0.0 Nucleated Red 0.0 0.0 Blood Cells # Sodium Level 138 139 Potassium Level 5.7 H 5.9 H Chloride Level 105 105 Carbon Dioxide 25 24 Level Anion Gap 8 10 Blood Urea 21 H 22 H Nitrogen Creatinine 3.32 H 3.40 H Est Glomerular 16 L 15 L Filtrat Rate mL/min Glucose Level 82 79 Calcium Level 9.2 9.5 Troponin I < 0.012 Blood Gas Blood arterial Specimen Source Arterial Blood 12/21/2018 2:45:1 Date Drawn 9 AM Arterial Blood pH 7.414 (Temp corrected) Arterial Blood 36.8 pCO2 (Temp correct) Arterial Blood 110.3 H pO2 (Temp corrected) Arterial Blood 23.0 HCO3 Arterial Blood -1.2 Base Excess Arterial Blood 98.1 H Oxygen Saturation Ck Test N/A Arterial Blood Right Brachial Gas Puncture Site Arterial 0.4 Blood Carboxyhemo globin Arterial Blood 0.2 Methemoglobin Blood Gas A-a O2 60.4 H Differential Oxyhemoglobin 97.5 Percent Blood Gas 37.0 Temperature Blood Gas 18.0 Respiration Rate Blood Gas Actual 28 Respiration Rate Blood Gas MASK - BIPAP Modality FiO2 30.0 Blood Gas 10 Pressure Support Blood Gas 15/5 IPAP/EPAP Ratio Blood Gas KM Notified Whom Blood Gas 12/21/2018 2:55:5 Notified Time 7 AM Test 12/21/18 07:22 Creatine Kinase 23 Creatine Kinase 1.7 Index Creatinine Kinase 0.39 MB (Mass) Troponin I < 0.012 Medications Medication Current Medications Aspirin (Halfprin) 81 mg DAILY PO ; Start 12/21/18 at 09:00 Carvedilol (Coreg) 50 mg Q12 PO ; Start 12/21/18 at 09:00 Clonidine (Catapres) 0.1 mg TID PO ; Start 12/21/18 at 09:00 Diphenhydramine HCl (Benadryl) 25 mg Q6 PRN PO ITCHING/RASH; Start 12/21/18 at 02:30 Hydroxyzine HCl (Atarax) 50 mg Q8H PRN PO ITCHING; Start 12/21/18 at 02:30 Lorazepam (Ativan) 1 mg TID PRN PO ANXIETY; Start 12/21/18 at 02:30 Mycophenolate Mofetil (Cellcept) 1,000 mg BID PO ; Start 12/21/18 at 09:00 Nifedipine (Procardia Xl) 60 mg BID PO ; Start 12/21/18 at 09:00 Pantoprazole (Protonix Tab) 40 mg DAILY@0600 PO ; Start 12/21/18 at 06:00 Prednisone (Prednisone) 5 mg DAILY PO ; Start 12/21/18 at 09:00 Sertraline HCl (Zoloft) 25 mg DAILY PO ; Start 12/21/18 at 09:00 IV Flush (NS 3 ml) 3 ml PER PROTOCOL IV ; Start 12/21/18 at 02:30 Morphine Sulfate (morphine) 2 mg Q4H PRN IV .SEVERE PAIN 7-10 Last administered on 12/21/18at 08:33; Admin Dose 2 MG; Start 12/21/18 at 02:30 Heparin Sodium (Porcine) (Heparin (5000 Units/1ml)) 5,000 unit Q12 SC ; Start 12/21/18 at 09:00 Temazepam (Restoril) 15 mg HS PRN PO INSOMNIA; Start 12/21/18 at 04:15 Hydroxychloroquine Sulfate (Plaquenil) 200 mg MONWEDFRI PO ; Start 12/21/18 at 09:00; Status UNV Acetaminophen (Tylenol Tab) 650 mg Q6H PRN PO MILD PAIN(1-3)OR ELEVATED TEMP; Start 12/21/18 at 09:00; Status UNV Nicardipine HCl 50 mg/Sodium Chloride 500 ml @ 50 mls/hr TITRATE IV ; Start 12/21/18 at 09:30; Status UNV LI GIL MD Dec 21, 2018 09:13
[2018-12-21] MEDS: ONDANSETRON 4 MG INJ IV PRN (10:04)
[2018-12-21] MEDS: predniSONE 5 MG TAB PO SCH (10:05)
[2018-12-21] MEDS: HEPARIN 5,000 UNIT/1 ML VIAL SC SCH ×2 (10:05→20:19)
[2018-12-21] MEDS: ASPIRIN (EC) 81 MG TAB PO SCH (10:06)
[2018-12-21] MEDS: SERTRALINE 50 MG TAB PO SCH (10:06)
[2018-12-21] MEDS: NIFEdipine (XL) 60 MG TAB PO SCH ×2 (10:06→20:14)
[2018-12-21] MEDS: ACETAMINOPHEN 325 MG TAB PO PRN ×2 (10:07→17:16)
--- NOTE | 2018-12-21 10:51 | CONS ---
Assessment/Plan Assessment/Plan Assessment/Plan (Daily) 1. acute pulmonary edema due to acute fluid overload 2. Acute fluid overload 3. Accelerated HTN 4. ESRD on HD 4 times a week at [facility] [place] 5. H/o HTN 6. H/o HL 7. h/o Lupus Plan: Urgent Hd today with 3.5 L removal, will plan for another HD tomorrow with 3 L removal of fluid will add lasix 40mg po daily continue nifedipine Xl 60mg BID hydralazine 100mg pO BID and clonidine pt regualr HD schedule is TTS at [facility]- she is on 4 times a week HD schedule. Thanks for consultation, I will continue to follow up Consultation Date/Type/Reason Admit Date/Time 12/21/18 Date of Consultation: Dec 21, 2018 Type of Consult NEPHROLOGY Reason for Consultation ESRD on HD with chest pain Requesting Provider: EMELY ORELLANA MD Date/Time of Note DATE: 12/21/18 TIME: 10:51 Hx of Present Illness 33-year-old female with a history of lupus, ESRD on hemodialysis Tuesday, , Tuesday, hypertension, who is well-known to me with multiple hospitalization, recently discharged a week ago from here secondary to volume overload/pulmonary edema, presented back with chest pain, shortness of breath, uncontrolled blood pressure readings on daytime in the 200s. Patient did not miss any dialysis sessions. She presented back again with SOB and noted to have acute fluid overload and pulmonary edema. pt gets admitted for fluid overload, pulmonary edema and renal has been consulted for emergent HD need Constitutional: no complaints Eyes: no complaints ENT: no complaints Respiratory: cough, pleuritic pain, shortness of breath Cardiovascular: chest pain Gastrointestinal: no complaints Genitourinary: no complaints Musculoskeletal: no complaints Skin: no complaints Neurologic: no complaints Endocrine: no complaints Lymphatic: no complaints Psychological: no complaints Immunologic: no complaints Past Medical History Medical History: hypertension, renal disease, other (lupus, ESRD on hemodialysis Tuesday, , Tuesday, hypertension) Home Meds Active Scripts Clonidine Hcl* (Catapres*) 0.1 Mg Tablet, 0.1 MG PO TID, #90 TAB Prov:VALERIA [employer] 12/14/18 Carvedilol* (Carvedilol*) 25 Mg Tablet, 50 MG PO Q12, #60 TAB Prov:FARHAD LEZAMA. 11/23/18 Diphenhydramine Hcl* (Benadryl*) 25 Mg Cap, 25 MG PO Q6 PRN for ITCHING/RASH, #30 TAB Prov:FADY ADAM 11/16/18 Nifedipine (Procardia Xl) 60 Mg Tab.er.24, 60 MG PO BID for 30 Days, #60 TAB 2 Refills Prov:FARHAD LEZAMA . 10/30/18 Sertraline Hcl* (Sertraline Hcl*) 25 Mg Tablet, 25 MG PO DAILY for anxiety, #30 TAB Prov:[facility]. 10/30/18 Hydroxyzine Hcl* (Atarax*) 25 Mg Tab, 50 MG PO Q8H PRN for ITCHING, #30 TAB Prov:[facility]. 10/30/18 Pantoprazole* (Pantoprazole*) 40 Mg Tablet., 40 MG PO DAILY, #30 TAB 2 Refills Prov:[facility]. 10/30/18 Aspirin* (Aspirin* (EC)) 81 Mg Tablet.dr, 81 MG PO DAILY for 30 Days, #30 otc Prov:GIANCARLO NOGUERA MD 09/24/18 Reported Medications Lorazepam* (Lorazepam*) 1 Mg Tablet, 1 MG PO TID PRN for ANXIETY for 14 Days 12/21/18 Temazepam (Restoril) 15 Mg Cap, 15 MG PO QHS PRN for SLEEP for 30 Days 12/21/18 Clonidine* (Cmpd) (Catapres SUSP (PEDIATRIC)*) 100 Mcg/Ml Susp, PO TID for 30 D ays 12/21/18 Prednisone* (Prednisone*) 5 Mg Tab, 5 MG PO DAILY, TAB 11/16/18 Mycophenolate Mofetil* (Mycophenolate Mofetil*) 500 Mg Tablet, 1000 MG PO BID, TAB TAKE 2 TABLET BY MOUTH EVERY MORNING AND EVENING 06/30/18 Hydroxychloroquine Sulfate* (Hydroxychloroquine Sulfate*) 200 Mg Tablet, 200 MG PO DAILY, TAB TAKE 1 TAB BY MOUTH EVERY TUESDAY-Tuesday06/30/18 Discontinued Scripts Tramadol HCl (Tramadol HCl) 50 Mg Tablet, 50 MG PO Q4 PRN for severe pain, #6 TAB Prov:FADY ADAM 11/16/18 Clonidine Hcl* (Catapres*) 0.1 Mg Tablet, 0.1 MG PO BID for 10 Days, #20 TAB 1 Refill Prov:GIANCARLO NOGUERA MD 10/19/18 Medications Current Medications Aspirin (Halfprin) 81 mg DAILY PO Last administered on 12/21/18 10:06; Admin Dose 81 MG; Start 12/21/18 at 09:00 Carvedilol (Coreg) 50 mg Q12 PO Last administered on 12/21/18 10:07; Admin Dose 50 MG; Start 12/21/18 at 09:00 Clonidine (Catapres) 0.1 mg TID PO Last administered on 12/21/18 10:06; Admin Dose 0.1 MG; Start 12/21/18 at 09:00 Diphenhydramine HCl (Benadryl) 25 mg Q6 PRN PO ITCHING/RASH; Start 12/21/18 at 02:30 Hydroxyzine HCl (Atarax) 50 mg Q8H PRN PO ITCHING; Start 12/21/18 at 02:30 Lorazepam (Ativan) 1 mg TID PRN PO ANXIETY; Start 12/21/18 at 02:30 Mycophenolate Mofetil (Cellcept) 1,000 mg BID PO ; Start 12/21/18 at 09:00 Nifedipine (Procardia Xl) 60 mg BID PO Last administered on 12/21/18 10:06; Admin Dose 60 MG; Start 12/21/18 at 09:00 Pantoprazole (Protonix Tab) 40 mg DAILY@0600 PO ; Start 12/21/18 at 06:00 Prednisone (Prednisone) 5 mg DAILY PO Last administered on 12/21/18 10:05; Admin Dose 5 MG; Start 12/21/18 at 09:00 Sertraline HCl (Zoloft) 25 mg DAILY PO Last administered on 12/21/18 10:06; Admin Dose 25 MG; Start 12/21/18 at 09:00 IV Flush (NS 3 ml) 3 ml PER PROTOCOL IV ; Start 12/21/18 at 02:30 Morphine Sulfate (morphine) 2 mg Q4H PRN IV .SEVERE PAIN 7-10 Last administered on 12/21/18at 08:33; Admin Dose 2 MG; Start 12/21/18 at 02:30 Heparin Sodium (Porcine) (Heparin (5000 Units/1ml)) 5,000 unit Q12 SC Last administered on 12/21/18at 10:05; Admin Dose 5,000 UNIT; Start 12/21/18 at 09:00 Temazepam (Restoril) 15 mg HS PRN PO INSOMNIA; Start 12/21/18 at 04:15 Acetaminophen (Tylenol Tab) 650 mg Q6H PRN PO MILD PAIN(1-3)OR ELEVATED TEMP Last administered on 12/21/18at 10:07; Admin Dose 650 MG; Start 12/21/18 at 09:00 Nicardipine HCl 50 mg/Sodium Chloride 500 ml @ 50 mls/hr TITRATE IV Last administered on 12/21/18at 10:32; Admin Dose 130 MLS/HR; Start 12/21/18 at 09:30 Ondansetron HCl (Zofran Inj) 4 mg Q4H PRN IV NAUSEA AND/OR VOMITING Last administered on 12/21/18at 10:04; Admin Dose 4 MG; Start 12/21/18 at 09:30 Hydroxychloroquine Sulfate (Plaquenil) 200 mg MONWEDFRI PO ; Start 12/22/18 at 09:00 Allergies: Coded Allergies: adhesive tape (Unverified Allergy, Unknown, 12/21/18) hydrocodone (Unverified Allergy, Unknown, paralysis, 12/21/18) Past Surgical History Past Surgical Hx: other (R chest permacath ) Family History Significant Family History: no pertinent family hx Social History Alcohol Use: none Smoking Status: Never smoker Drug Use: none Exam/Review of Systems Exam Vitals Vital Signs Date Temp Pulse Resp B/P (MAP) Pulse Ox O2 O2 Flow FiO2 Time Delivery Rate 12/21/18 2.0 09:20 12/21/18 104 08:00 12/21/18 26 180/99 100 Nasal 07:00 (126) Cannula 12/21/18 98.6 04:30 12/21/18 30 03:05 Intake and Output 12/20/18 12/20/18 12/21/18 1414:59 22:59 06:59 IntakeIntake Total 30 ml OutputOutput Total 0 ml BalanceBalance 30 ml Exam Constitutional: alert Psych: no complaints Head: normocephalic Eyes: nl conjunctiva ENMT: nl external ears & nose Neck: supple, non-tender Respiratory: congested cough, crackles/rales, diminished breath sounds Cardiovascular: regular rate and rhythm Gastrointestinal: soft, non-tender Musculoskeletal: nl extremities to inspection, nl gait and stance Extremities: normal pulses Neurological: [employer] PHARMACIST II-XII intact Skin: nl turgor Lymph: nl lymph nodes Results Result Diagram: 12/21/18 0719 12/21/18 0719 Results 24hrs Laboratory Tests Test 12/21/18 00:08 12/21/18 02:20 12/21/18 02:26 12/21/18 07:19 White Blood Count 4.2 L 10.9 #H Red Blood Count 3.11 L 2.78 L Hemoglobin 9.8 L 8.9 L Hematocrit 33.1 L 29.7 L Mean Corpuscular 106.4 H 106.8 H Volume Mean Corpuscular 31.5 32.0 Hemoglobin Mean Corpuscular 29.6 L 30.0 L Hemoglobin Concen t Red Cell 17.4 H 17.2 H Distribution Width Platelet Count 121 L 101 L Mean Platelet 12.3 H 12.1 H Volume Immature 0.200 0.500 H Granulocytes % Neutrophils % 60.8 83.1 H Lymphocytes % 29.0 8.4 L Monocytes % 9.1 7.6 Eosinophils % 0.7 0.1 Basophils % 0.2 0.3 Nucleated Red 0.0 0.0 Blood Cells % Immature 0.010 0.050 H Granulocytes # Neutrophils # 2.5 9.1 H Lymphocytes # 1.2 0.9 Monocytes # 0.4 0.8 Eosinophils # 0.0 0.0 Basophils # 0.0 0.0 Nucleated Red 0.0 0.0 Blood Cells # Sodium Level 138 139 140 Potassium Level 5.7 H 5.9 H 5.8 H Chloride Level 105 105 106 Carbon Dioxide 25 24 24 Level Anion Gap 8 10 10 Blood Urea 21 H 22 H 24 H Nitrogen Creatinine 3.32 H 3.40 H 3.83 H Est Glomerular 16 L 15 L 13 L Filtrat Rate mL/min Glucose Level 82 79 75 Calcium Level 9.2 9.5 9.5 Troponin I < 0.012 Blood Gas Blood arterial Specimen Source Arterial Blood 12/21/2018 2:45:1 Date Drawn 9 AM Arterial Blood pH 7.414 (Temp corrected) Arterial Blood 36.8 pCO2 (Temp correct) Arterial Blood 110.3 H pO2 (Temp corrected) Arterial Blood 23.0 HCO3 Arterial Blood -1.2 Base Excess Arterial Blood 98.1 H Oxygen Saturation Ck Test N/A Arterial Blood Right Brachial Gas Puncture Site Arterial 0.4 Blood Carboxyhemo globin Arterial Blood 0.2 Methemoglobin Blood Gas A-a O2 60.4 H Differential Oxyhemoglobin 97.5 Percent Blood Gas 37.0 Temperature Blood Gas 18.0 Respiration Rate Blood Gas Actual 28 Respiration Rate Blood Gas MASK - BIPAP Modality FiO2 30.0 Blood Gas 10 Pressure Support Blood Gas 15/5 IPAP/EPAP Ratio Blood Gas KM Notified Whom Blood Gas 12/21/2018 2:55:5 Notified Time 7 AM Total Bilirubin 0.1 L Direct Bilirubin 0.00 Indirect 0.1 Bilirubin Aspartate Amino 26 Transf (AST/SGOT) Alanine 14 Aminotransferase (ALT/SGPT) Alkaline 80 Phosphatase Total Protein 6.9 Albumin 3.5 Globulin 3.40 H Albumin/Globulin 1.02 Ratio Test 12/21/18 07:22 Creatine Kinase 23 Creatine Kinase 1.7 Index Creatinine Kinase 0.39 MB (Mass) Troponin I < 0.012 Medications Medication Current Medications Aspirin (Halfprin) 81 mg DAILY PO Last administered on 12/21/18at 10:06; Admin Dose 81 MG; Start 12/21/18 at 09:00 Carvedilol (Coreg) 50 mg Q12 PO Last administered on 12/21/18at 10:07; Admin Dose 50 MG; Start 12/21/18 at 09:00 Clonidine (Catapres) 0.1 mg TID PO Last administered on 12/21/18at 10:06; Admin Dose 0.1 MG; Start 12/21/18 at 09:00 Diphenhydramine HCl (Benadryl) 25 mg Q6 PRN PO ITCHING/RASH; Start 12/21/18 at 02:30 Hydroxyzine HCl (Atarax) 50 mg Q8H PRN PO ITCHING; Start 12/21/18 at 02:30 Lorazepam (Ativan) 1 mg TID PRN PO ANXIETY; Start 12/21/18 at 02:30 Mycophenolate Mofetil (Cellcept) 1,000 mg BID PO ; Start 12/21/18 at 09:00 Nifedipine (Procardia Xl) 60 mg BID PO Last administered on 12/21/18 10:06; Admin Dose 60 MG; Start 12/21/18 at 09:00 Pantoprazole (Protonix Tab) 40 mg DAILY@0600 PO ; Start 12/21/18 at 06:00 Prednisone (Prednisone) 5 mg DAILY PO Last administered on 12/21/18 10:05; Admin Dose 5 MG; Start 12/21/18 at 09:00 Sertraline HCl (Zoloft) 25 mg DAILY PO Last administered on 12/21/18 10:06; Admin Dose 25 MG; Start 12/21/18 at 09:00 IV Flush (NS 3 ml) 3 ml PER PROTOCOL IV ; Start 12/21/18 at 02:30 Morphine Sulfate (morphine) 2 mg Q4H PRN IV .SEVERE PAIN 7-10 Last administered on 12/21/18 08:33; Admin Dose 2 MG; Start 12/21/18 at 02:30 Heparin Sodium (Porcine) (Heparin (5000 Units/1ml)) 5,000 unit Q12 SC Last administered on 12/21/18 10:05; Admin Dose 5,000 UNIT; Start 12/21/18 at 09:00 Temazepam (Restoril) 15 mg HS PRN PO INSOMNIA; Start 12/21/18 at 04:15 Acetaminophen (Tylenol Tab) 650 mg Q6H PRN PO MILD PAIN(1-3)OR ELEVATED TEMP Last administered on 12/21/18 10:07; Admin Dose 650 MG; Start 12/21/18 at 09:00 Nicardipine HCl 50 mg/Sodium Chloride 500 ml @ 50 mls/hr TITRATE IV Last administered on 12/21/18 10:32; Admin Dose 130 MLS/HR; Start 12/21/18 at 09:30 Ondansetron HCl (Zofran Inj) 4 mg Q4H PRN IV NAUSEA AND/OR VOMITING Last administered on 12/21/18 10:04; Admin Dose 4 MG; Start 12/21/18 at 09:30 Hydroxychloroquine Sulfate (Plaquenil) 200 mg MONWEDFRI PO ; Start 12/22/18 at 09:00 ARTURO AMADOR MD Dec 21, 2018 10:51
[2018-12-21] MEDS ORDERED: ALBUMIN HUMAN 25% 100 ML IV PRN (11:00)
[2018-12-21] MEDS ORDERED: SODIUM CHLORIDE 0.9% 1L BAG IV PRN (11:00)
[2018-12-21] MEDS ORDERED: HEPARIN 1000 UNITS/ML 10 ML INJ CATHETER SCH (11:00)
[2018-12-21] MEDS: HEPARIN 1000 UNITS/ML 10 ML INJ CATHETER SCH (15:44)
[2018-12-21] MEDS: FUROSEMIDE 40 MG TAB PO SCH (16:03)
[2018-12-21] MEDS: MYCOPHENOLATE 250 MG CAP PO SCH ×2 (16:03→20:13)
[2018-12-21] MEDS: METOCLOPRAMIDE 10 MG INJ IV PRN (16:03)
[2018-12-21] MEDS: LORAZEPAM 1 MG TAB PO PRN (16:58)
[2018-12-22] VITALS (28 sets, daily range): BP systolic 100–127; BP diastolic 64–80; PULSE 69–88; RESP 17–20
[2018-12-22] MEDS: morphine 2 MG INJ IV PRN ×6 (00:19→22:19)
[2018-12-22] MEDS: DIPHENHYDRAMINE 25 MG CAP PO PRN ×2 (04:42→20:26)
[2018-12-22] MEDS: PANTOPRAZOLE (EC) 40 MG TAB PO SCH (06:14)
--- NOTE | 2018-12-22 06:54 | CONS ---
Assessment/Plan Assessment/Plan Assessment/Plan (Daily) Systemic lupus erythematosus On DMARD's End-stage renal disease on hemodialysis 4 times weekly Hypertension out of control On calcium channel blockers Fluid overload Immunosuppression Secondary to lupus We will have a conversation with patient's hospitalist today prior to beginning discussion on ongoing palliation of care also with discuss patient's ongoing level of care with renal. Consultation Date/Type/Reason Admit Date/Time 12/21/18 Date/Time of Note DATE: 12/22/18 TIME: 06:51 Hx of Present Illness Dictating his palliative care consultation on this 33-year-old female who was admitted to [facility] 12/21/2018 at 0300 hrs. Patient has a long-standing history of end-stage renal disease secondary to SLE has had multiple admissions per medical records she is dialyzed 4 times weekly. Accord ing medical records patient received dialysis on the day of the hospitalization and later the same day developed increasing shortness of breath she was transferred to the emergency room and [facility] required BiPAP tachycardic short of breath and hypertensive. Renal has been consulted. Patient's blood pressure has been controlled on nicardipine respiratory failure is under better control and patient is on nasal cannula at this time. I am asked to speak to patient concerning ongoing level of care current medications include prednisone 5 mg daily and Plaquenil 3 times weekly patient has an extensive history of hospitalizations. She denies any pain at this time. But at admission she was having chest pain and abdominal discomfort and states she has a history of pancreatitis also which is under control at this time. As an outpatient and so far this antianxiety medications and pain control medication she was on sertraline 25 mg daily Lorazepam 1 mg 3 times a day as needed, and tramadol 50 mg every 4 hours as needed pain. I have asked to speak to patient and family members concerning for palliation of care. Before I do so we will speak with all consultants first especially including patient's hospitalist. Patient is uncomfortable at this time and is difficult to get a review of systems, she is a poor historian. Respiratory: shortness of breath, other Cardiovascular: No no complaints, No chest pain, No edema, No lightheadedness, No orthopenea, No palpitations, No paroxysmal nocturnal dyspnea, No other Immunologic: immunodeficiency, other (History of systemic lupus erythematosus with lung involvement pancreatitis joint involvement recurrent) Past Medical History Medical History: hypertension, renal disease, other (lupus, ESRD on hemodialysis Tuesday, , Tuesday, hypertension) Home Meds Active Scripts Clonidine Hcl* (Catapres*) 0.1 Mg Tablet, 0.1 MG PO TID, #90 TAB Prov:VALERIA PETER VFabrizio [employer] 12/14/18 Carvedilol* (Carvedilol*) 25 Mg Tablet, 50 MG PO Q12, #60 TAB Prov:LISEELISABETH [facility]. 11/23/18 Diphenhydramine Hcl* (Benadryl*) 25 Mg Cap, 25 MG PO Q6 PRN for ITCHING/RASH, #30 TAB Prov:FADY ADAM 11/16/18 Nifedipine (Procardia Xl) 60 Mg Tab.er.24, 60 MG PO BID for 30 Days, #60 TAB 2 Refills Prov[facility] 10/30/18 Sertraline Hcl* (Sertraline Hcl*) 25 Mg Tablet, 25 MG PO DAILY for anxiety, #30 TAB [facility] 10/30/18 Hydroxyzine Hcl* (Atarax*) 25 Mg Tab, 50 MG PO Q8H PRN for ITCHING, #30 TAB [facility] 10/30/18 Pantoprazole* (Pantoprazole*) 40 Mg Tablet., 40 MG PO DAILY, #30 TAB 2 Refills Prov:[facility]. 10/30/18 Aspirin* (Aspirin* (EC)) 81 Mg Tablet., 81 MG PO DAILY for 30 Days, #30 otc Prov:GIANCARLO NOGUERA MD 09/24/18 Reported Medications Lorazepam* (Lorazepam*) 1 Mg Tablet, 1 MG PO TID PRN for ANXIETY for 14 Days 12/21/18 Temazepam (Restoril) 15 Mg Cap, 15 MG PO QHS PRN for SLEEP for 30 Days 12/21/18 Clonidine* (Cmpd) (Catapres SUSP (PEDIATRIC)*) 100 Mcg/Ml Susp, PO TID for 30 Days 12/21/18 Prednisone* (Prednisone*) 5 Mg Tab, 5 MG PO DAILY, TAB 11/16/18 Mycophenolate Mofetil* (Mycophenolate Mofetil*) 500 Mg Tablet, 1000 MG PO BID, TAB TAKE 2 TABLET BY MOUTH EVERY MORNING AND EVENING 06/30/18 Hydroxychloroquine Sulfate* (Hydroxychloroquine Sulfate*) 200 Mg Tablet, 200 MG PO DAILY, TAB TAKE 1 TAB BY MOUTH EVERY TUESDAY-Tuesday06/30/18 Discontinued Scripts Tramadol HCl (Tramadol HCl) 50 Mg Tablet, 50 MG PO Q4 PRN for severe pain, #6 TAB Prov:FADY ADAM 11/16/18 Medications Current Medications Aspirin (Halfprin) 81 mg DAILY PO Last administered on 12/21/18 10:06; Admin Dose 81 MG; Start 12/21/18 at 09:00 Carvedilol (Coreg) 50 mg Q12 PO Last administered on 12/21/18 20:15; Admin Dose 50 MG; Start 12/21/18 at 09:00 Clonidine (Catapres) 0.1 mg TID PO Last administered on 12/21/18 20:14; Admin Dose 0.1 MG; Start 12/21/18 at 09:00 Diphenhydramine HCl (Benadryl) 25 mg Q6 PRN PO ITCHING/RASH Last administered on 12/22/18 04:42; Admin Dose 25 MG; Start 12/21/18 at 02:30 Hydroxyzine HCl (Atarax) 50 mg Q8H PRN PO ITCHING; Start 12/21/18 at 02:30 Lorazepam (Ativan) 1 mg TID PRN PO ANXIETY Last administered on 12/21/18 16:58; Admin Dose 1 MG; Start 12/21/18 at 02:30 Mycophenolate Mofetil (Cellcept) 1,000 mg BID PO Last administered on 12/21/18 20:13; Admin Dose 1,000 MG; Start 12/21/18 at 09:00 Nifedipine (Procardia Xl) 60 mg BID PO Last administered on 12/21/18 20:14; Admin Dose 60 MG; Start 12/21/18 at 09:00 Pantoprazole (Protonix Tab) 40 mg DAILY@0600 PO Last administered on 12/22/18 06:14; Admin Dose 40 MG; Start 12/21/18 at 06:00 Prednisone (Prednisone) 5 mg DAILY PO Last administered on 12/21/18 10:05; Admin Dose 5 MG; Start 12/21/18 at 09:00 Sertraline HCl (Zoloft) 25 mg DAILY PO Last administered on 12/21/18 10:06; Admin Dose 25 MG; Start 12/21/18 at 09:00 IV Flush (NS 3 ml) 3 ml PER PROTOCOL IV ; Start 12/21/18 at 02:30 Morphine Sulfate (morphine) 2 mg Q4H PRN IV .SEVERE PAIN 7-10 Last administered on 12/22/18 04:14; Admin Dose 2 MG; Start 12/21/18 at 02:30 Heparin Sodium (Porcine) (Heparin (5000 Units/1ml)) 5,000 unit Q12 SC Last administered on 12/21/18 20:19; Admin Dose 5,000 UNIT; Start 12/21/18 at 09:00 Temazepam (Restoril) 15 mg HS PRN PO INSOMNIA; Start 12/21/18 at 04:15 Acetaminophen (Tylenol Tab) 650 mg Q6H PRN PO MILD PAIN(1-3)OR ELEVATED TEMP Last administered on 12/21/18 17:16; Admin Dose 650 MG; Start 12/21/18 at 09:00 Ondansetron HCl (Zofran Inj) 4 mg Q4H PRN IV NAUSEA AND/OR VOMITING Last administered on 12/21/18 10:04; Admin Dose 4 MG; Start 12/21/18 at 09:30 Hydroxychloroquine Sulfate (Plaquenil) 200 mg MONWEDFRI PO ; Start 12/22/18 at 09:00 Albumin Human 100 ml @ 100 mls/hr WITH DIALYSIS PRN IV SBP <90 DURING DIALYSIS; Start 12/21/18 at 11:00 Sodium Chloride (NS) -To prime the dialy... DIRECTED FOR HD PRN IV HD; Start 12/21/18 at 11:00 Furosemide (Lasix) 40 mg DAILY PO Last administered on 12/21/18 16:03; Admin Dose 40 MG; Start 12/21/18 at 11:00 Metoclopramide HCl (Reglan) 5 mg Q4H PRN IV NAUSEA Last administered on 12/21/18 16:03; Admin Dose 5 MG; Start 12/21/18 at 13:30 Heparin Sodium (Porcine) (Heparin (1000 Units/ml)) 4,500 unit AFTER DIALYSIS CATHETER Last administered on 12/21/18at 15:44; Admin Dose 4,500 UNIT; Start 12/21/18 at 14:00 Allergies: Coded Allergies: adhesive tape (Unverified Allergy, Unknown, 12/21/18) hydrocodone (Unverified Allergy, Unknown, paralysis, 12/21/18) Past Surgical History Past Surgical Hx: other (R chest permacath ) Social History Alcohol Use: none Smoking Status: Never smoker Drug Use: none Exam/Review of Systems Exam Vitals Vital Signs Date Temp Pulse Resp B/P (MAP) Pulse Ox O2 O2 Flow FiO2 Time Delivery Rate 12/22/18 98.2 88 19 127/77 99 05:20 (94) 12/22/18 2.0 05:09 12/21/18 Nasal 21:10 Cannula 12/21/18 30 03:05 Intake and Output 12/21/18 12/21/18 12/22/18 1515:00 23:00 07:00 IntakeIntake Total 831.5 ml 310 ml 300 ml OutputOutput Total 4200 ml 0 ml BalanceBalance 831.5 ml -3890 ml 300 ml Constitutional: alert, oriented, well developed Psych: anxiety Head: normocephalic, atraumatic Neck: supple, non-tender Respiratory: congested cough, crackles/rales, labored breathing Cardiovascular: regular rate and rhythm, nl pulses Gastrointestinal: soft, nl liver, spleen, non-tender Musculoskeletal: joint tenderness, swelling 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, nl mental status, nl speech, nl strength Results Result Diagram: 12/21/1819 12/21/18 0719 Results 24hrs Laboratory Tests Test 12/21/18 07:19 12/21/18 07:22 12/21/18 13:41 White Blood Count 10.9 #H Red Blood Count 2.78 L Hemoglobin 8.9 L Hematocrit 29.7 L Mean Corpuscular Volume 106.8 H Mean Corpuscular Hemoglobin 32.0 Mean Corpuscular Hemoglobin Concent 30.0 L Red Cell Distribution Width 17.2 H Platelet Count 101 L Mean Platelet Volume 12.1 H Immature Granulocytes % 0.500 H Neutrophils % 83.1 H Lymphocytes % 8.4 L Monocytes % 7.6 Eosinophils % 0.1 Basophils % 0.3 Nucleated Red Blood Cells % 0.0 Immature Granulocytes # 0.050 H Neutrophils # 9.1 H Lymphocytes # 0.9 Monocytes # 0.8 Eosinophils # 0.0 Basophils # 0.0 Nucleated Red Blood Cells # 0.0 Sodium Level 140 Potassium Level 5.8 H Chloride Level 106 Carbon Dioxide Level 24 Anion Gap 10 Blood Urea Nitrogen 24 H Creatinine 3.83 H Est Glomerular Filtrat Rate mL/min 13 L Glucose Level 75 Calcium Level 9.5 Total Bilirubin 0.1 L Direct Bilirubin 0.00 Indirect Bilirubin 0.1 Aspartate Amino Transf (AST/SGOT) 26 Alanine Aminotransferase (ALT/SGPT) 14 Alkaline Phosphatase 80 Total Protein 6.9 Albumin 3.5 Globulin 3.40 H Albumin/Globulin Ratio 1.02 Creatine Kinase 23 22 L Creatine Kinase Index 1.7 1.6 Creatinine Kinase MB (Mass) 0.39 0.35 Troponin I < 0.012 < 0.012 Medications Medication Current Medications Aspirin (Halfprin) 81 mg DAILY PO Last administered on 12/21/18 10:06; Admin Dose 81 MG; Start 12/21/18 at 09:00 Carvedilol (Coreg) 50 mg Q12 PO Last administered on 12/21/18 20:15; Admin Dose 50 MG; Start 12/21/18 at 09:00 Clonidine (Catapres) 0.1 mg TID PO Last administered on 12/21/18 20:14; Admin Dose 0.1 MG; Start 12/21/18 at 09:00 Diphenhydramine HCl (Benadryl) 25 mg Q6 PRN PO ITCHING/RASH Last administered on 12/22/18 04:42; Admin Dose 25 MG; Start 12/21/18 at 02:30 Hydroxyzine HCl (Atarax) 50 mg Q8H PRN PO ITCHING; Start 12/21/18 at 02:30 Lorazepam (Ativan) 1 mg TID PRN PO ANXIETY Last administered on 12/21/18 16:58; Admin Dose 1 MG; Start 12/21/18 at 02:30 Mycophenolate Mofetil (Cellcept) 1,000 mg BID PO Last administered on 12/21/18 20:13; Admin Dose 1,000 MG; Start 12/21/18 at 09:00 Nifedipine (Procardia Xl) 60 mg BID PO Last administered on 12/21/18 20:14; Admin Dose 60 MG; Start 12/21/18 at 09:00 Pantoprazole (Protonix Tab) 40 mg DAILY@0600 PO Last administered on 12/22/18 06:14; Admin Dose 40 MG; Start 12/21/18 at 06:00 Prednisone (Prednisone) 5 mg DAILY PO Last administered on 12/21/18 10:05; Admin Dose 5 MG; Start 12/21/18 at 09:00 Sertraline HCl (Zoloft) 25 mg DAILY PO Last administered on 12/21/18 10:06; Admin Dose 25 MG; Start 12/21/18 at 09:00 IV Flush (NS 3 ml) 3 ml PER PROTOCOL IV ; Start 12/21/18 at 02:30 Morphine Sulfate (morphine) 2 mg Q4H PRN IV .SEVERE PAIN 7-10 Last administered on 12/22/18 04:14; Admin Dose 2 MG; Start 12/21/18 at 02:30 Heparin Sodium (Porcine) (Heparin (5000 Units/1ml)) 5,000 unit Q12 SC Last administered on 12/21/18 20:19; Admin Dose 5,000 UNIT; Start 12/21/18 at 09:00 Temazepam (Restoril) 15 mg HS PRN PO INSOMNIA; Start 12/21/18 at 04:15 Acetaminophen (Tylenol Tab) 650 mg Q6H PRN PO MILD PAIN(1-3)OR ELEVATED TEMP Last administered on 12/21/18at 17:16; Admin Dose 650 MG; Start 12/21/18 at 09:00 Ondansetron HCl (Zofran Inj) 4 mg Q4H PRN IV NAUSEA AND/OR VOMITING Last administered on 12/21/18 10:04; Admin Dose 4 MG; Start 12/21/18 at 09:30 Hydroxychloroquine Sulfate (Plaquenil) 200 mg MONWEDFRI PO ; Start 12/22/18 at 09:00 Albumin Human 100 ml @ 100 mls/hr WITH DIALYSIS PRN IV SBP <90 DURING DIALYSIS; Start 12/21/18 at 11:00 Sodium Chloride (NS) -To prime the dialy... DIRECTED FOR HD PRN IV HD; Start 12/21/18 at 11:00 Furosemide (Lasix) 40 mg DAILY PO Last administered on 12/21/18 16:03; Admin Dose 40 MG; Start 12/21/18 at 11:00 Metoclopramide HCl (Reglan) 5 mg Q4H PRN IV NAUSEA Last administered on 16:03; Admin Dose 5 MG; Start 12/21/18 at 13:30 Heparin Sodium (Porcine) (Heparin (1000 Units/ml)) 4,500 unit AFTER DIALYSIS CATHETER Last administered on 12/21/18at 15:44; Admin Dose 4,500 UNIT; Start 12/21/18 at 14:00 MAHNAZ BALDERRAMA Dec 22, 2018 06:54
[2018-12-22] MEDS: SERTRALINE 50 MG TAB PO SCH (08:24)
[2018-12-22] MEDS: ASPIRIN (EC) 81 MG TAB PO SCH (08:24)
[2018-12-22] MEDS: predniSONE 5 MG TAB PO SCH (08:25)
[2018-12-22] MEDS: FUROSEMIDE 40 MG TAB PO SCH (08:28)
[2018-12-22] MEDS: NIFEdipine (XL) 60 MG TAB PO SCH ×2 (08:29→20:22)
[2018-12-22] MEDS: HYDROXYCHLOROQUINE 200 MG TAB PO SCH (08:35)
[2018-12-22] MEDS: hydrOXYzine HCL 25 MG TAB PO PRN (08:35)
--- NOTE | 2018-12-22 10:14 | CONS ---
Assessment/Plan Assessment/Plan Assessment/Plan (Daily) 1. acute pulmonary edema due to acute fluid overload 2. Acute fluid overload 3. Accelerated HTN 4. ESRD on HD 4 times a week at [place] HD revere 5. H/o HTN 6. H/o HL 7. h/o Lupus Plan: Urgent HD today with 3.5 L removal, will plan for another HD today and tomorrow(Tuesday) continue lasix 40mg po daily continue nifedipine Xl 60mg BID hydralazine 100mg pO BID and clonidine pt regualr HD schedule is TTS at [facility]- she is on 4 times a week HD schedule. Today 2 hr after HD, will check ABG on RA to assess need of Home oxygen. will follow up keep pt in house for HD on Tuesday and tuesday Consultation Date/Type/Reason Admit Date/Time Dec 21, 2018 at 01:48 Initial Consult Date 12/21/18 Type of Consult NEPHROLOGY Requesting Provider: EMELY ORELLANA MD Date/Time of Note DATE: 12/22/18 TIME: 10:14 24 HR Interval Summary Free Text/Dictation s/p HD yesterday 3.5 L removed, BP stable,afebrile, Exam/Review of Systems Exam Vitals Vital Signs Date Temp Pulse Resp B/P (MAP) Pulse Ox O2 O2 Flow FiO2 Time Delivery Rate 12/22/18 72 09:50 12/22/18 100/66 100 Nasal 2.0 09:48 (77) Cannula 12/22/18 98.0 07:26 12/21/18 30 03:05 Intake and Output 12/21/18 12/21/18 12/22/18 1515:00 23:00 07:00 IntakeIntake Total 831.5 ml 310 ml 300 ml OutputOutput Total 4200 ml 0 ml BalanceBalance 831.5 ml -3890 ml 300 ml Exam Constitutional: alert Respiratory: congested cough, crackles/rales, diminished breath sounds Cardiovascular: regular rate and rhythm Gastrointestinal: soft, non-tender Musculoskeletal: nl extremities to inspection, nl gait and stance Extremities: normal pulses Results Result Diagram: 12/22/1825 12/22/18 0625 Results 24hrs Laboratory Tests Test 12/21/18 13:41 12/22/18 06:25 Creatine Kinase 22 L Creatine Kinase Index 1.6 Creatinine Kinase MB (Mass) 0.35 Troponin I < 0.012 White Blood Count 3.9 #L Red Blood Count 3.08 L Hemoglobin 9.8 L Hematocrit 32.3 L Mean Corpuscular Volume 104.9 H Mean Corpuscular Hemoglobin 31.8 Mean Corpuscular Hemoglobin Concent 30.3 L Red Cell Distribution Width 16.8 H Platelet Count 106 L Mean Platelet Volume 11.1 H Immature Granulocytes % 0.300 Neutrophils % 58.1 Lymphocytes % 28.5 Monocytes % 12.6 H Eosinophils % 0.0 Basophils % 0.5 Nucleated Red Blood Cells % 0.0 Immature Granulocytes # 0.010 Neutrophils # 2.3 Lymphocytes # 1.1 Monocytes # 0.5 Eosinophils # 0.0 Basophils # 0.0 Nucleated Red Blood Cells # 0.0 Sodium Level 138 Potassium Level 5.1 Chloride Level 94 #L Carbon Dioxide Level 31 Anion Gap 13 Blood Urea Nitrogen 17 Creatinine 3.73 H Est Glomerular Filtrat Rate mL/min 14 L Glucose Level 78 Hemoglobin A1c 4.5 Calcium Level 9.8 Total Bilirubin 0.1 L Direct Bilirubin 0.00 Indirect Bilirubin 0.1 Aspartate Amino Transf (AST/SGOT) 24 Alanine Aminotransferase (ALT/SGPT) 15 Alkaline Phosphatase 84 Total Protein 8.2 H Albumin 4.2 Globulin 4.00 H Albumin/Globulin Ratio 1.05 Medications Medication Current Medications Aspirin (Halfprin) 81 mg DAILY PO Last administered on 12/22/18at 08:24; Admin Dose 81 MG; Start 12/21/18 at 09:00 Carvedilol (Coreg) 50 mg Q12 PO Last administered on 12/21/18 20:15; Admin Dose 50 MG; Start 12/21/18 at 09:00 Clonidine (Catapres) 0.1 mg TID PO Last administered on 12/21/18 20:14; Admin Dose 0.1 MG; Start 12/21/18 at 09:00 Diphenhydramine HCl (Benadryl) 25 mg Q6 PRN PO ITCHING/RASH Last administered on 12/22/18at 04:42; Admin Dose 25 MG; Start 12/21/18 at 02:30 Hydroxyzine HCl (Atarax) 50 mg Q8H PRN PO ITCHING Last administered on 12/22/18 08:35; Admin Dose 50 MG; Start 12/21/18 at 02:30 Lorazepam (Ativan) 1 mg TID PRN PO ANXIETY Last administered on 12/21/18 16:58; Admin Dose 1 MG; Start 12/21/18 at 02:30 Mycophenolate Mofetil (Cellcept) 1,000 mg BID PO Last administered on 12/21/18 20:13; Admin Dose 1,000 MG; Start 12/21/18 at 09:00 Nifedipine (Procardia Xl) 60 mg BID PO Last administered on 12/21/18 20:14; Admin Dose 60 MG; Start 12/21/18 at 09:00 Pantoprazole (Protonix Tab) 40 mg DAILY@0600 PO Last administered on 12/22/18 06:14; Admin Dose 40 MG; Start 12/21/18 at 06:00 Prednisone (Prednisone) 5 mg DAILY PO Last administered on 12/22/18 08:25; Admin Dose 5 MG; Start 12/21/18 at 09:00 Sertraline HCl (Zoloft) 25 mg DAILY PO Last administered on 12/22/18 08:24; Admin Dose 25 MG; Start 12/21/18 at 09:00 IV Flush (NS 3 ml) 3 ml PER PROTOCOL IV ; Start 12/21/18 at 02:30 Morphine Sulfate (morphine) 2 mg Q4H PRN IV .SEVERE PAIN 7-10 Last administered on 12/22/18 08:23; Admin Dose 2 MG; Start 12/21/18 at 02:30 Heparin Sodium (Porcine) (Heparin (5000 Units/1ml)) 5,000 unit Q12 SC Last administered on 12/21/18 20:19; Admin Dose 5,000 UNIT; Start 12/21/18 at 09:00 Temazepam (Restoril) 15 mg HS PRN PO INSOMNIA; Start 12/21/18 at 04:15 Acetaminophen (Tylenol Tab) 650 mg Q6H PRN PO MILD PAIN(1-3)OR ELEVATED TEMP Last administered on 12/21/18 17:16; Admin Dose 650 MG; Start 12/21/18 at 09:00 Ondansetron HCl (Zofran Inj) 4 mg Q4H PRN IV NAUSEA AND/OR VOMITING Last administered on 12/21/18 10:04; Admin Dose 4 MG; Start 2/21/19 at 09:30 Hydroxychloroquine Sulfate (Plaquenil) 200 mg MONWEDFRI PO Last administered on 12/22/18at 08:35; Admin Dose 200 MG; Start 12/22/18 at 09:00 Albumin Human 100 ml @ 100 mls/hr WITH DIALYSIS PRN IV SBP <90 DURING DIALYSIS; Start 12/21/18 at 11:00 Sodium Chloride (NS) -To prime the dialy... DIRECTED FOR HD PRN IV HD; Start 12/21/18 at 11:00 Furosemide (Lasix) 40 mg DAILY PO Last administered on 12/22/18at 08:28; Admin Dose 40 MG; Start 12/21/18 at 11:00 Metoclopramide HCl (Reglan) 5 mg Q4H PRN IV NAUSEA Last administered on 12/21/18at 16:03; Admin Dose 5 MG; Start 12/21/18 at 13:30 Heparin Sodium (Porcine) (Heparin (1000 Units/ml)) 4,500 unit AFTER DIALYSIS CATHETER Last administered on 12/21/18at 15:44; Admin Dose 4,500 UNIT; Start 12/21/18 at 14:00 ARTURO AMADOR MD Dec 22, 2018 10:14
[2018-12-22] MEDS: HEPARIN 1000 UNITS/ML 10 ML INJ CATHETER SCH (13:08)
[2018-12-22] MEDS: MYCOPHENOLATE 250 MG CAP PO SCH ×2 (13:40→20:21)
[2018-12-22] MEDS: HEPARIN 5,000 UNIT/1 ML VIAL SC SCH ×2 (13:44→20:25)
[2018-12-22] MEDS: ONDANSETRON 4 MG INJ IV PRN (14:44)
[2018-12-22] MEDS: ACETAMINOPHEN 325 MG TAB PO PRN ×2 (14:44→21:08)
--- NOTE | 2018-12-22 15:13 | PN ---
Date/Time of Note Date/Time of Note DATE: 12/22/18 TIME: 15:11 Assessment/Plan VTE Prophylaxis Risk score (from Nsg)>0 risk: 4 SCD applied (from Nsg): No SCD contraindicated: low risk/ambulating Pharmacological prophylaxis: heparin Lines/Catheters IV Catheter Type (from Nrsg): Saline Lock Urinary Cath still in place: No Assessment/Plan Assessment/Plan 33 yo woman wtih ESRD and SLE who presents with acute respiratory failure from pulmonary edema in setting of hypertensive emergency #Hypertensive emergency - resolved - Continue home anti-hypertensives - Dialysis per renal. #Acute respiratory failure from pulmonary edema: - Now off BiPAP, on nasal cannula. - dialysis - May require home oxygen. Will do desat test when she is euvolemic. #ESRD: #Hyperkalemia - Continue HD per Dr Dean - Dr. Kumar following for palliative care #SLE: - Continue prednisone 5, mycophenylate 1000 BID and plaquenil thrice weekly DVT: heparin GI: None Result Diagram: 12/22/1825 12/22/18 0625 Subjective 24 Hr Interval Summary Free Text/Dictation Moved up from ICU to tele today. Dialysis yesterday and today. Patient still reports occasional pressure-like chest pain associated with dialysis. Otherwise feeling well. Exam/Review of Systems Exam Vitals Vital Signs Date Temp Pulse Resp B/P (MAP) Pulse Ox O2 O2 Flow FiO2 Time Delivery Rate 12/22/18 79 18 116/77 100 Nasal 2.0 13:00 (90) Cannula 12/22/18 98.0 11:32 12/21/18 30 03:05 Intake and Output 12/21/18 12/21/18 12/22/18 1515:00 23:00 07:00 IntakeIntake Total 831.5 ml 310 ml 300 ml OutputOutput Total 4200 ml 0 ml BalanceBalance 831.5 ml -3890 ml 300 ml Exam Gen: Frail appearing thin woman in some discomfort. Eyes: PERRL, no icterus HEENT: Moist mucous membranes, erythematous rash on face. Neck: No JVD. No lymphadenopathy. Chest: L chest permacath in place. Card: Regular rate and rhythm, no murmurs Pulm: Clear to auscultation bilaterally. Abd: Soft, nontender, nondistended. Ext: LUE AV fistula with bruit. Skin: warm, dry, well perfused. Results Results 24hrs Laboratory Tests Test 12/22/18 06:25 12/22/18 14:00 White Blood Count 3.9 #L Red Blood Count 3.08 L Hemoglobin 9.8 L Hematocrit 32.3 L Mean Corpuscular Volume 104.9 H Mean Corpuscular Hemoglobin 31.8 Mean Corpuscular Hemoglobin Concent 30.3 L Red Cell Distribution Width 16.8 H Platelet Count 106 L Mean Platelet Volume 11.1 H Immature Granulocytes % 0.300 Neutrophils % 58.1 Lymphocytes % 28.5 Monocytes % 12.6 H Eosinophils % 0.0 Basophils % 0.5 Nucleated Red Blood Cells % 0.0 Immature Granulocytes # 0.010 Neutrophils # 2.3 Lymphocytes # 1.1 Monocytes # 0.5 Eosinophils # 0.0 Basophils # 0.0 Nucleated Red Blood Cells # 0.0 Sodium Level 138 Potassium Level 5.1 Chloride Level 94 #L Carbon Dioxide Level 31 Anion Gap 13 Blood Urea Nitrogen 17 Creatinine 3.73 H Est Glomerular Filtrat Rate mL/min 14 L Glucose Level 78 Hemoglobin A1c 4.5 Calcium Level 9.8 Total Bilirubin 0.1 L Direct Bilirubin 0.00 Indirect Bilirubin 0.1 Aspartate Amino Transf (AST/SGOT) 24 Alanine Aminotransferase (ALT/SGPT) 15 Alkaline Phosphatase 84 Total Protein 8.2 H Albumin 4.2 Globulin 4.00 H Albumin/Globulin Ratio 1.05 Blood Gas Specimen Source Blood arterial Arterial Blood Date Drawn 12/22/2018 2:32:25 PM Arterial Blood pH (Temp corrected) 7.402 Arterial Blood pCO2 (Temp correct) 47.6 H Arterial Blood pO2 (Temp corrected) 84.4 Arterial Blood HCO3 29.0 H Arterial Blood Base Excess 3.4 H Arterial Blood Oxygen Saturation 95.7 Ck Test N/A Arterial Blood Gas Puncture Site Right Brachial Arterial Blood Carboxyhemoglobin 1.3 Arterial Blood Methemoglobin 0.2 Blood Gas A-a O2 Differential 8.3 Oxyhemoglobin Percent 94.3 Blood Gas Temperature 37.0 Blood Gas Modality ROOM AIR FiO2 21.0 Blood Gas Notified Whom TM Blood Gas Notified Time 12/22/2018 2:40:52 PM Medications Medication Current Medications Aspirin (Halfprin) 81 mg DAILY PO Last administered on 12/22/18at 08:24; Admin Dose 81 MG; Start 12/21/18 at 09:00 Carvedilol (Coreg) 50 mg Q12 PO Last administered on 12/21/18 20:15; Admin Dose 50 MG; Start 12/21/18 at 09:00 Clonidine (Catapres) 0.1 mg TID PO Last administered on 12/22/18 13:37; Admin Dose 0.1 MG; Start 12/21/18 at 09:00 Diphenhydramine HCl (Benadryl) 25 mg Q6 PRN PO ITCHING/RASH Last administered on 12/22/18 04:42; Admin Dose 25 MG; Start 12/21/18 at 02:30 Hydroxyzine HCl (Atarax) 50 mg Q8H PRN PO ITCHING Last administered on 12/22/18 08:35; Admin Dose 50 MG; Start 12/21/18 at 02:30 Lorazepam (Ativan) 1 mg TID PRN PO ANXIETY Last administered on 12/21/18 16:58; Admin Dose 1 MG; Start 12/21/18 at 02:30 Mycophenolate Mofetil (Cellcept) 1,000 mg BID PO Last administered on 12/22/18 13:40; Admin Dose 1,000 MG; Start 12/21/18 at 09:00 Nifedipine (Procardia Xl) 60 mg BID PO Last administered on 12/21/18 20:14; Admin Dose 60 MG; Start 12/21/18 at 09:00 Pantoprazole (Protonix Tab) 40 mg DAILY@0600 PO Last administered on 12/22/18 06:14; Admin Dose 40 MG; Start 12/21/18 at 06:00 Prednisone (Prednisone) 5 mg DAILY PO Last administered on 12/22/18 08:25; Admin Dose 5 MG; Start 12/21/18 at 09:00 Sertraline HCl (Zoloft) 25 mg DAILY PO Last administered on 12/22/18 08:24; Admin Dose 25 MG; Start 12/21/18 at 09:00 IV Flush (NS 3 ml) 3 ml PER PROTOCOL IV ; Start 12/21/18 at 02:30 Morphine Sulfate (morphine) 2 mg Q4H PRN IV .SEVERE PAIN 7-10 Last administered on 12/22/18 13:35; Admin Dose 2 MG; Start 12/21/18 at 02:30 Heparin Sodium (Porcine) (Heparin (5000 Units/1ml)) 5,000 unit Q12 SC Last administered on 12/22/18 13:44; Admin Dose 5,000 UNIT; Start 12/21/18 at 09:00 Temazepam (Restoril) 15 mg HS PRN PO INSOMNIA; Start 12/21/18 at 04:15 Acetaminophen (Tylenol Tab) 650 mg Q6H PRN PO MILD PAIN(1-3)OR ELEVATED TEMP Last administered on 12/22/18 14:44; Admin Dose 650 MG; Start 12/21/18 at 09:00 Ondansetron HCl (Zofran Inj) 4 mg Q4H PRN IV NAUSEA AND/OR VOMITING Last admi nistered on 12/22/18 14:44; Admin Dose 4 MG; Start 12/21/18 at 09:30 Hydroxychloroquine Sulfate (Plaquenil) 200 mg MONWEDFRI PO Last administered on 12/22/18 08:35; Admin Dose 200 MG; Start 12/22/18 at 09:00 Albumin Human 100 ml @ 100 mls/hr WITH DIALYSIS PRN IV SBP <90 DURING DIALYSIS; Start 12/21/18 at 11:00 Sodium Chloride (NS) -To prime the dialy... DIRECTED FOR HD PRN IV HD; Start 12/21/18 at 11:00 Furosemide (Lasix) 40 mg DAILY PO Last administered on 12/22/18 08:28; Admin Dose 40 MG; Start 12/21/18 at 11:00 Metoclopramide HCl (Reglan) 5 mg Q4H PRN IV NAUSEA Last administered on 12/21/18 16:03; Admin Dose 5 MG; Start 12/21/18 at 13:30 Heparin Sodium (Porcine) (Heparin (1000 Units/ml)) 4,500 unit AFTER DIALYSIS CATHETER Last administered on 12/22/18 13:08; Admin Dose 4,500 UNIT; Start 12/21/18 at 14:00 LI GIL MD Dec 22, 2018 15:13
[2018-12-23] VITALS (23 sets, daily range): BP systolic 89–119; BP diastolic 61–81; PULSE 57–80; RESP 17–18
[2018-12-23] MEDS: morphine 2 MG INJ IV PRN ×6 (02:43→23:32)
[2018-12-23] MEDS: DIPHENHYDRAMINE 25 MG CAP PO PRN (02:47)
[2018-12-23] MEDS: PANTOPRAZOLE (EC) 40 MG TAB PO SCH (06:39)
[2018-12-23] MEDS: predniSONE 5 MG TAB PO SCH (08:37)
[2018-12-23] MEDS: MYCOPHENOLATE 250 MG CAP PO SCH ×2 (08:37→20:41)
[2018-12-23] MEDS: SERTRALINE 50 MG TAB PO SCH (08:38)
[2018-12-23] MEDS: ASPIRIN (EC) 81 MG TAB PO SCH (08:38)
[2018-12-23] MEDS: HEPARIN 5,000 UNIT/1 ML VIAL SC SCH ×2 (08:44→20:50)
[2018-12-23] MEDS: FUROSEMIDE 40 MG TAB PO SCH (08:46)
[2018-12-23] MEDS: NIFEdipine (XL) 60 MG TAB PO SCH ×2 (08:46→20:41)
[2018-12-23] MEDS: hydrOXYzine HCL 25 MG TAB PO PRN (10:24)
[2018-12-23] MEDS: METOCLOPRAMIDE 10 MG INJ IV PRN ×3 (11:11→23:31)
[2018-12-23] MEDS: ACETAMINOPHEN 325 MG TAB PO PRN (11:11)
[2018-12-23] MEDS: HEPARIN 1000 UNITS/ML 10 ML INJ CATHETER SCH (13:51)
--- NOTE | 2018-12-23 13:57 | CONS ---
Assessment/Plan Assessment/Plan Assessment/Plan (Daily) 1. acute pulmonary edema due to acute fluid overload 2. Acute fluid overload 3. Accelerated HTN 4. ESRD on HD 4 times a week at [facility] [place] 5. H/o HTN 6. H/o HL 7. h/o Lupus Plan: Urgent HD yesterday with 3.5 L removal, - another HD today and tomorrow(Tuesday)- 2.0 L removed; SBP 97 continue lasix 40mg po daily continue nifedipine Xl 60mg BID hydralazine 100mg pO BID and clonidine pt regualr HD schedule is TTS at [facility] [place]- she is on 4 times a week HD s chedule. 2 hr HD yesterday, ABG on RA to assess need of Home oxygen. will follow up keep pt in house for HD on Tuesday and tuesday Plan of care dw Dr Joao joseph Consultation Date/Type/Reason Admit Date/Time Dec 21, 2018 at 01:48 Initial Consult Date 12/21/18 Requesting Provider: EMELY ORELLANA MD Date/Time of Note DATE: 12/23/18 TIME: 13:55 24 HR Interval Summary Free Text/Dictation another HD today and tomorrow(Tuesday)- 2.0 L removed; SBP 97 Detailed Summary Eyes: no complaints ENT: no complaints Respiratory: no complaints Cardiovascular: no complaints Gastrointestinal: no complaints Genitourinary: no complaints Musculoskeletal: other (general weakness) Skin: no complaints Neurologic: no complaints Psychological: nl mood/affect Exam/Review of Systems Exam Vitals Vital Signs Date Temp Pulse Resp B/P (MAP) Pulse Ox O2 O2 Flow FiO2 Time Delivery Rate 12/23/18 76 13:35 12/23/18 18 106/68 99 Room Air 10:20 (81) 12/23/18 2.0 28 08:40 12/23/18 98.0 05:00 Intake and Output 12/22/18 12/22/18 12/23/18 1515:00 23:00 07:00 IntakeIntake Total 480 ml 400 ml OutputOutput Total 3400 ml 0 ml BalanceBalance -3400 ml 480 ml 400 ml Constitutional: alert, well developed Psych: nl mood/affect Head: normocephalic Eyes: EOMI, nl lids, nl sclera ENMT: nl external ears & nose Neck: non-tender Respiratory: diminished breath sounds (bilaterally at bases) Cardiovascular: nl pulses Gastrointestinal: soft, non-tender Musculoskeletal: muscle weakness, range of motion Extremities: normal pulses Neurological: nl speech, other (alert/reponsie) Lymph: nontender Results Result Diagram: 12/22/1862412/22/18624 Results 24hrs Laboratory Tests Test 12/22/18 14:00 Blood Gas Specimen Source Blood arterial Arterial Blood Date Drawn 12/22/2018 2:32:25 PM Arterial Blood pH (Temp corrected) 7.402 Arterial Blood pCO2 (Temp correct) 47.6 H Arterial Blood pO2 (Temp corrected) 84.4 Arterial Blood HCO3 29.0 H Arterial Blood Base Excess 3.4 H Arterial Blood Oxygen Saturation 95.7 Ck Test N/A Arterial Blood Gas Puncture Site Right Brachial Arterial Blood Carboxyhemoglobin 1.3 Arterial Blood Methemoglobin 0.2 Blood Gas A-a O2 Differential 8.3 Oxyhemoglobin Percent 94.3 Blood Gas Temperature 37.0 Blood Gas Modality ROOM AIR FiO2 21.0 Blood Gas Notified Whom TM Blood Gas Notified Time 12/22/2018 2:40:52 PM Medications Medication Current Medications Aspirin (Halfprin) 81 mg DAILY PO Last administered on 12/23/18 08:38; Admin Dose 81 MG; Start 12/21/18 at 09:00 Carvedilol (Coreg) 50 mg Q12 PO Last administered on 12/22/18 20:22; Admin Dose 50 MG; Start 12/21/18 at 09:00 Clonidine (Catapres) 0.1 mg TID PO Last administered on 12/22/18 20:22; Admin Dose 0.1 MG; Start 12/21/18 at 09:00 Diphenhydramine HCl (Benadryl) 25 mg Q6 PRN PO ITCHING/RASH Last administered on 12/23/18 02:47; Admin Dose 25 MG; Start 12/21/18 at 02:30 Hydroxyzine HCl (Atarax) 50 mg Q8H PRN PO ITCHING Last administered on 12/23/18 10:24; Admin Dose 50 MG; Start 12/21/18 at 02:30 Lorazepam (Ativan) 1 mg TID PRN PO ANXIETY Last administered on 12/21/18 16:58; Admin Dose 1 MG; Start 12/21/18 at 02:30 Mycophenolate Mofetil (Cellcept) 1,000 mg BID PO Last administered on 12/23/18 08:37; Admin Dose 1,000 MG; Start 12/21/18 at 09:00 Nifedipine (Procardia Xl) 60 mg BID PO Last administered on 12/22/18 20:22; Admin Dose 60 MG; Start 12/21/18 at 09:00 Pantoprazole (Protonix Tab) 40 mg DAILY@0600 PO Last administered on 12/23/18 06:39; Admin Dose 40 MG; Start 12/21/18 at 06:00 Prednisone (Prednisone) 5 mg DAILY PO Last administered on 12/23/18 08:37; Admin Dose 5 MG; Start 12/21/18 at 09:00 Sertraline HCl (Zoloft) 25 mg DAILY PO Last administered on 12/23/18 08:38; Admin Dose 25 MG; Start 12/21/18 at 09:00 IV Flush (NS 3 ml) 3 ml PER PROTOCOL IV ; Start 12/21/18 at 02:30 Morphine Sulfate (morphine) 2 mg Q4H PRN IV .SEVERE PAIN 7-10 Last administered on 12/23/18 10:16; Admin Dose 2 MG; Start 12/21/18 at 02:30 Heparin Sodium (Porcine) (Heparin (5000 Units/1ml)) 5,000 unit Q12 SC Last administered on 12/23/18 08:44; Admin Dose 5,000 UNIT; Start 12/21/18 at 09:00 Temazepam (Restoril) 15 mg HS PRN PO INSOMNIA; Start 12/21/18 at 04:15 Acetaminophen (Tylenol Tab) 650 mg Q6H PRN PO MILD PAIN(1-3)OR ELEVATED TEMP Last administered on 12/23/18 11:11; Admin Dose 650 MG; Start 12/21/18 at 09:00 Ondansetron HCl (Zofran Inj) 4 mg Q4H PRN IV NAUSEA AND/OR VOMITING Last administered on 12/22/18 14:44; Admin Dose 4 MG; Start 12/21/18 at 09:30 Hydroxychloroquine Sulfate (Plaquenil) 200 mg MONWEDFRI PO Last administered on 12/22/18 08:35; Admin Dose 200 MG; Start 12/22/18 at 09:00 Albumin Human 100 ml @ 100 mls/hr WITH DIALYSIS PRN IV SBP <90 DURING DIALYSIS; Start 12/21/18 at 11:00 Sodium Chloride (NS) -To prime the dialy... DIRECTED FOR HD PRN IV HD; Start 12/21/18 at 11:00 Furosemide (Lasix) 40 mg DAILY PO Last administered on 12/22/18at 08:28; Admin Dose 40 MG; Start 12/21/18 at 11:00 Metoclopramide HCl (Reglan) 5 mg Q4H PRN IV NAUSEA Last administered on 12/23/18at 11:11; Admin Dose 5 MG; Start 12/21/18 at 13:30 Heparin Sodium (Porcine) (Heparin (1000 Units/ml)) 4,500 unit AFTER DIALYSIS CATHETER Last administered on 12/23/18at 13:51; Admin Dose 4,500 UNIT; Start 12/21/18 at 14:00 JESSE HINTON Dec 23, 2018 13:57
[2018-12-23] MEDS: LORAZEPAM 1 MG TAB PO PRN (15:47)
--- NOTE | 2018-12-23 16:55 | PN ---
Date/Time of Note Date/Time of Note DATE: 12/23/18 TIME: 16:47 Assessment/Plan VTE Prophylaxis Risk score (from Nsg)>0 risk: 4 SCD applied (from Nsg): Yes Pharmacological prophylaxis: heparin Lines/Catheters IV Catheter Type (from Nrsg): Saline Lock Urinary Cath still in place: No Assessment/Plan Assessment/Plan 33 yo woman wtih ESRD and SLE who presents with acute respiratory failure from pulmonary edema in setting of hypertensive emergency #Hypertensive emergency - resolved - Continue home anti-hypertensives - Dialysis per renal. #Acute respiratory failure from pulmonary edema: - Now off BiPAP, on nasal cannula. - dialysis - May require home oxygen. Will do desat test when she is euvolemic prior to discharge home. #ESRD: #Hyperkalemia - Continue HD per Dr Dean - Dr. Kumar following for palliative care #SLE: - Continue prednisone 5, mycophenylate 1000 BID and plaquenil thrice weekly DVT: heparin GI: None Result Diagram: 12/22/1862412/22/18624 Subjective 24 Hr Interval Summary Free Text/Dictation No acute overnight events. Patient feeling well. Exam/Review of Systems Exam Vitals Vital Signs Date Temp Pulse Resp B/P (MAP) Pulse Ox O2 O2 Flow FiO2 Time Delivery Rate 12/23/18 80 16:05 12/23/18 18 106/68 99 Room Air 10:20 (81) 12/23/18 2.0 28 08:40 12/23/18 98.0 05:00 Intake and Output 12/22/18 12/22/18 12/23/18 1515:00 23:00 07:00 IntakeIntake Total 480 ml 400 ml OutputOutput Total 3400 ml 0 ml BalanceBalance -3400 ml 480 ml 400 ml Exam Gen: Frail appearing thin woman in no distress Eyes: PERRL, no icterus HEENT: Moist mucous membranes, erythematous rash on face. Neck: No JVD. No lymphadenopathy. Chest: R chest permacath in place. Card: Regular rate and rhythm, no murmurs Pulm: Clear to auscultation bilaterally. Abd: Soft, nontender, nondistended. Ext: LUE AV fistula with bruit. Skin: warm, dry, well perfused. Medications Medication Current Medications Aspirin (Halfprin) 81 mg DAILY PO Last administered on 12/23/18 08:38; Admin Dose 81 MG; Start 12/21/18 at 09:00 Carvedilol (Coreg) 50 mg Q12 PO Last administered on 12/22/18 20:22; Admin Dose 50 MG; Start 12/21/18 at 09:00 Clonidine (Catapres) 0.1 mg TID PO Last administered on 12/22/18 20:22; Admin Dose 0.1 MG; Start 12/21/18 at 09:00 Diphenhydramine HCl (Benadryl) 25 mg Q6 PRN PO ITCHING/RASH Last administered on 12/23/18 02:47; Admin Dose 25 MG; Start 12/21/18 at 02:30 Hydroxyzine HCl (Atarax) 50 mg Q8H PRN PO ITCHING Last administered on 12/23/18 10:24; Admin Dose 50 MG; Start 12/21/18 at 02:30 Lorazepam (Ativan) 1 mg TID PRN PO ANXIETY Last administered on 12/23/18 15:47; Admin Dose 1 MG; Start 12/21/18 at 02:30 Mycophenolate Mofetil (Cellcept) 1,000 mg BID PO Last administered on 12/23/18 08:37; Admin Dose 1,000 MG; Start 12/21/18 at 09:00 Nifedipine (Procardia Xl) 60 mg BID PO Last administered on 12/22/18 20:22; Admin Dose 60 MG; Start 12/21/18 at 09:00 Pantoprazole (Protonix Tab) 40 mg DAILY@0600 PO Last administered on 12/23/18 06:39; Admin Dose 40 MG; Start 12/21/18 at 06:00 Prednisone (Prednisone) 5 mg DAILY PO Last administered on 12/23/18 08:37; Admin Dose 5 MG; Start 12/21/18 at 09:00 Sertraline HCl (Zoloft) 25 mg DAILY PO Last administered on 12/23/18 08:38; Admin Dose 25 MG; Start 12/21/18 at 09:00 IV Flush (NS 3 ml) 3 ml PER PROTOCOL IV ; Start 12/21/18 at 02:30 Morphine Sulfate (morphine) 2 mg Q4H PRN IV .SEVERE PAIN 7-10 Last administered on 12/23/18 14:49; Admin Dose 2 MG; Start 12/21/18 at 02:30 Heparin Sodium (Porcine) (Heparin (5000 Units/1ml)) 5,000 unit Q12 SC Last administered on 12/23/18 08:44; Admin Dose 5,000 UNIT; Start 12/21/18 at 09:00 Temazepam (Restoril) 15 mg HS PRN PO INSOMNIA; Start 12/21/18 at 04:15 Acetaminophen (Tylenol Tab) 650 mg Q6H PRN PO MILD PAIN(1-3)OR ELEVATED TEMP Last administered on 12/23/18 11:11; Admin Dose 650 MG; Start 12/21/18 at 09:00 Ondansetron HCl (Zofran Inj) 4 mg Q4H PRN IV NAUSEA AND/OR VOMITING Last admin istered on 12/22/18 14:44; Admin Dose 4 MG; Start 12/21/18 at 09:30 Hydroxychloroquine Sulfate (Plaquenil) 200 mg MONWEDFRI PO Last administered on 12/22/18 08:35; Admin Dose 200 MG; Start 12/22/18 at 09:00 Albumin Human 100 ml @ 100 mls/hr WITH DIALYSIS PRN IV SBP <90 DURING DIALYSIS; Start 12/21/18 at 11:00 Sodium Chloride (NS) -To prime the dialy... DIRECTED FOR HD PRN IV HD; Start 12/21/18 at 11:00 Furosemide (Lasix) 40 mg DAILY PO Last administered on 12/22/18 08:28; Admin Dose 40 MG; Start 12/21/18 at 11:00 Metoclopramide HCl (Reglan) 5 mg Q4H PRN IV NAUSEA Last administered on 12/23/18 11:11; Admin Dose 5 MG; Start 12/21/18 at 13:30 Heparin Sodium (Porcine) (Heparin (1000 Units/ml)) 4,500 unit AFTER DIALYSIS CATHETER Last administered on 12/23/18 13:51; Admin Dose 4,500 UNIT; Start 12/21/18 at 14:00 LI GIL MD Dec 23, 2018 16:55
[2018-12-23] MEDS: ONDANSETRON 4 MG INJ IV PRN ×2 (18:12→23:31)
[2018-12-24] VITALS (26 sets, daily range): BP systolic 84–129; BP diastolic 55–82; PULSE 59–87; RESP 16–18
[2018-12-24] MEDS: morphine 2 MG INJ IV PRN ×5 (04:01→21:46)
[2018-12-24] MEDS: PANTOPRAZOLE (EC) 40 MG TAB PO SCH (06:12)
[2018-12-24] MEDS: DIPHENHYDRAMINE 25 MG CAP PO PRN ×2 (06:13→21:46)
[2018-12-24] MEDS: ASPIRIN (EC) 81 MG TAB PO SCH (08:20)
[2018-12-24] MEDS: NIFEdipine (XL) 60 MG TAB PO SCH ×2 (08:20→21:47)
[2018-12-24] MEDS: MYCOPHENOLATE 250 MG CAP PO SCH (08:20)
[2018-12-24] MEDS: SERTRALINE 50 MG TAB PO SCH (08:20)
[2018-12-24] MEDS: predniSONE 5 MG TAB PO SCH (08:20)
[2018-12-24] MEDS: FUROSEMIDE 40 MG TAB PO SCH (08:21)
[2018-12-24] MEDS: HEPARIN 5,000 UNIT/1 ML VIAL SC SCH ×2 (08:39→23:18)
[2018-12-24] MEDS: ONDANSETRON 4 MG INJ IV PRN (10:13)
[2018-12-24] MEDS: HEPARIN 1000 UNITS/ML 10 ML INJ CATHETER SCH (11:33)
[2018-12-24] MEDS ORDERED: ALTEPLASE (CATHFLO) 2 MG INJ CATHETER STA (12:28)
--- NOTE | 2018-12-24 12:30 | PN ---
Date/Time of Note Date/Time of Note DATE: 12/24/18 TIME: 12:23 Assessment/Plan VTE Prophylaxis Risk score (from Nsg)>0 risk: 3 SCD applied (from Nsg): No SCD contraindicated: other (no) Pharmacological prophylaxis: heparin Lines/Catheters IV Catheter Type (from Nrsg): Saline Lock Urinary Cath still in place: No Assessment/Plan Assessment/Plan 33 yo woman wtih ESRD and SLE who presents with acute respiratory failure from pulmonary edema in setting of hypertensive emergency #Hypertensive emergency - resolved - Continue home anti-hypertensives - Dialysis per renal. #Acute respiratory failure from pulmonary edema: - Now off BiPAP, on nasal cannula. - dialysis - May require home oxygen. Will do desat test when she is euvolemic prior to discharge home. #ESRD: #Hyperkalemia - Continue HD per Dr Dean - Dr. Kumar following for palliative care #SLE: - Continue prednisone 5, mycophenylate 1000 BID and plaquenil thrice weekly DVT: heparin GI: PPI Result Diagram: 12/24/18 0803 12/24/18 0803 Subjective 24 Hr Interval Summary Free Text/Dictation No acute overnight events. Patient still has some vague cramping abdominal pain. Also some dizziness with this morning's dialysis. Getting dialysis this morning Exam/Review of Systems Exam Vitals Vital Signs Date Temp Pulse Resp B/P (MAP) Pulse Ox O2 O2 Flow FiO2 Time Delivery Rate 12/24/18 72 16 101/62 99 Room Air 12:12 (75) 12/24/18 97.3 07:43 12/23/18 2.0 28 17:24 Intake and Output 12/23/18 12/23/18 12/24/18 1515:00 23:00 07:00 IntakeIntake Total 360 ml 300 ml OutputOutput Total 3000 ml 2000 ml 0 ml BalanceBalance -3000 ml -1640 ml 300 ml Exam Gen: Frail appearing thin woman in no distress Eyes: PERRL, no icterus HEENT: Moist mucous membranes, erythematous rash on face. Neck: No JVD. No lymphadenopathy. Chest: R chest permacath in place. Card: Regular rate and rhythm, no murmurs Pulm: Clear to auscultation bilaterally. Abd: Soft, nontender, nondistended. Ext: LUE AV fistula with bruit. Skin: warm, dry, well perfused. Results Results 24hrs Laboratory Tests Test 12/24/18 08:03 White Blood Count 5.4 # Red Blood Count 3.72 #L Hemoglobin 11.8 #L Hematocrit 39.1 # Mean Corpuscular Volume 105.1 H Mean Corpuscular Hemoglobin 31.7 Mean Corpuscular Hemoglobin Concent 30.2 L Red Cell Distribution Width 16.3 H Platelet Count 164 # Mean Platelet Volume 12.0 H Immature Granulocytes % 0.400 Neutrophils % 57.2 Lymphocytes % 27.8 Monocytes % 14.0 H Eosinophils % 0.2 Basophils % 0.4 Nucleated Red Blood Cells % 0.0 Immature Granulocytes # 0.020 Neutrophils # 3.1 Lymphocytes # 1.5 Monocytes # 0.8 Eosinophils # 0.0 Basophils # 0.0 Nucleated Red Blood Cells # 0.0 Sodium Level 134 L Potassium Level 4.8 Chloride Level 91 L Carbon Dioxide Level 25 Anion Gap 18 H Blood Urea Nitrogen 27 H Creatinine 4.28 H Est Glomerular Filtrat Rate mL/min 12 L Glucose Level 90 Calcium Level 10.5 H Phosphorus Level 6.8 H Magnesium Level 2.0 Medications Medication Current Medications Aspirin (Halfprin) 81 mg DAILY PO Last administered on 12/24/18 08:20; Admin Dose 81 MG; Start 12/21/18 at 09:00 Carvedilol (Coreg) 50 mg Q12 PO Last administered on 12/23/18 20:41; Admin Dose 50 MG; Start 12/21/18 at 09:00 Clonidine (Catapres) 0.1 mg TID PO Last administered on 12/23/18 20:41; Admin Dose 0.1 MG; Start 12/21/18 at 09:00 Diphenhydramine HCl (Benadryl) 25 mg Q6 PRN PO ITCHING/RASH Last administered on 12/24/18 06:13; Admin Dose 25 MG; Start 12/21/18 at 02:30 Hydroxyzine HCl (Atarax) 50 mg Q8H PRN PO ITCHING Last administered on 12/23/18 10:24; Admin Dose 50 MG; Start 12/21/18 at 02:30 Lorazepam (Ativan) 1 mg TID PRN PO ANXIETY Last administered on 12/23/18 15:47; Admin Dose 1 MG; Start 12/21/18 at 02:30 Mycophenolate Mofetil (Cellcept) 1,000 mg BID PO Last administered on 12/24/18 08:20; Admin Dose 1,000 MG; Start 12/21/18 at 09:00 Nifedipine (Procardia Xl) 60 mg BID PO Last administered on 12/23/18 20:41; Admin Dose 60 MG; Start 12/21/18 at 09:00 Pantoprazole (Protonix Tab) 40 mg DAILY@0600 PO Last administered on 12/24/18 06:12; Admin Dose 40 MG; Start 12/21/18 at 06:00 Prednisone (Prednisone) 5 mg DAILY PO Last administered on 12/24/18 08:20; Admin Dose 5 MG; Start 12/21/18 at 09:00 Sertraline HCl (Zoloft) 25 mg DAILY PO Last administered on 12/24/18 08:20; Admin Dose 25 MG; Start 12/21/18 at 09:00 IV Flush (NS 3 ml) 3 ml PER PROTOCOL IV ; Start 12/21/18 at 02:30 Morphine Sulfate (morphine) 2 mg Q4H PRN IV .SEVERE PAIN 7-10 Last administered on 12/24/18 08:21; Admin Dose 2 MG; Start 12/21/18 at 02:30 Heparin Sodium (Porcine) (Heparin (5000 Units/1ml)) 5,000 unit Q12 SC Last administered on 12/24/18 08:39; Admin Dose 5,000 UNIT; Start 12/21/18 at 09:00 Temazepam (Restoril) 15 mg HS PRN PO INSOMNIA; Start 12/21/18 at 04:15 Acetaminophen (Tylenol Tab) 650 mg Q6H PRN PO MILD PAIN(1-3)OR ELEVATED TEMP Last administered on 12/23/18 11:11; Admin Dose 650 MG; Start 12/21/18 at 09:00 Ondansetron HCl (Zofran Inj) 4 mg Q4H PRN IV NAUSEA AND/OR VOMITING Last administered on 12/24/18 10:13; Admin Dose 4 MG; Start 12/21/18 at 09:30 Hydroxychloroquine Sulfate (Plaquenil) 200 mg MONWEDFRI PO Last administered on 12/22/18 08:35; Admin Dose 200 MG; Start 12/22/18 at 09:00 Albumin Human 100 ml @ 100 mls/hr WITH DIALYSIS PRN IV SBP <90 DURING DIALYSIS Last administered on 12/24/18 09:41; Admin Dose 100 MLS/HR; Start 12/21/18 at 11:00 Sodium Chloride (NS) -To prime the dialy... DIRECTED FOR HD PRN IV HD; Start 12/21/18 at 11:00 Furosemide (Lasix) 40 mg DAILY PO Last administered on 12/22/18 08:28; Admin Dose 40 MG; Start 12/21/18 at 11:00 Metoclopramide HCl (Reglan) 5 mg Q4H PRN IV NAUSEA Last administered on 23:31; Admin Dose 5 MG; Start 12/21/18 at 13:30 Heparin Sodium (Porcine) (Heparin (1000 Units/ml)) 4,500 unit AFTER DIALYSIS CATHETER Last administered on 12/24/18 11:33; Admin Dose 4,500 UNIT; Start 12/21/18 at 14:00 LI GIL MD Dec 24, 2018 12:30
--- NOTE | 2018-12-24 14:05 | CONS ---
Assessment/Plan Assessment/Plan Assessment/Plan (Daily) 1. acute pulmonary edema due to acute fluid overload 2. Acute fluid overload 3. Accelerated HTN 4. ESRD on HD 4 times a week at [facility] 5. H/o HTN 6. H/o HL 7. h/o Lupus Plan: Urgent HD yesterday with 3.5 L removal, Tuesday HD - 2.0 L removed; SBP 97 continue lasix 40mg po daily continue nifedipine Xl 60mg BID hydralazine 100mg pO BID and clonidine pt regualr HD schedule is TTS at [facility]- she is on 4 times a week HD schedule. will follow up keep pt in house for HD on Tuesday and tuesday Plan of care dw Dr Joao Dean Consultation Date/Type/Reason Admit Date/Time Dec 21, 2018 at 01:48 Initial Consult Date 12/21/18 Requesting Provider: EMELY ORELLANA MD Date/Time of Note DATE: 12/24/18 TIME: 14:05 Exam/Review of Systems Exam Vitals Vital Signs Date Temp Pulse Resp B/P (MAP) Pulse Ox O2 O2 Flow FiO2 Time Delivery Rate 12/24/18 72 16 101/62 99 Room Air 12:12 (75) 12/24/18 97.3 07:43 12/23/18 2.0 28 17:24 Intake and Output 12/23/18 12/23/18 12/24/18 1515:00 23:00 07:00 IntakeIntake Total 360 ml 300 ml OutputOutput Total 3000 ml 2000 ml 0 ml BalanceBalance -3000 ml -1640 ml 300 ml Constitutional: alert, well developed, frail Psych: nl mood/affect Head: normocephalic Eyes: EOMI, nl lids, nl sclera ENMT: nl external ears & nose Neck: non-tender Respiratory: diminished breath sounds Cardiovascular: nl pulses, other (s1s2) Gastrointestinal: soft, non-tender Musculoskeletal: muscle weakness, range of motion Extremities: normal pulses Neurological: nl speech, other (alert/responsive) Results Result Diagram: 12/24/18 0803 12/24/18 0803 Results 24hrs Laboratory Tests Test 12/24/18 08:03 White Blood Count 5.4 # Red Blood Count 3.72 #L Hemoglobin 11.8 #L Hematocrit 39.1 # Mean Corpuscular Volume 105.1 H Mean Corpuscular Hemoglobin 31.7 Mean Corpuscular Hemoglobin Concent 30.2 L Red Cell Distribution Width 16.3 H Platelet Count 164 # Mean Platelet Volume 12.0 H Immature Granulocytes % 0.400 Neutrophils % 57.2 Lymphocytes % 27.8 Monocytes % 14.0 H Eosinophils % 0.2 Basophils % 0.4 Nucleated Red Blood Cells % 0.0 Immature Granulocytes # 0.020 Neutrophils # 3.1 Lymphocytes # 1.5 Monocytes # 0.8 Eosinophils # 0.0 Basophils # 0.0 Nucleated Red Blood Cells # 0.0 Sodium Level 134 L Potassium Level 4.8 Chloride Level 91 L Carbon Dioxide Level 25 Anion Gap 18 H Blood Urea Nitrogen 27 H Creatinine 4.28 H Est Glomerular Filtrat Rate mL/min 12 L Glucose Level 90 Calcium Level 10.5 H Phosphorus Level 6.8 H Magnesium Level 2.0 Medications Medication Current Medications Aspirin (Halfprin) 81 mg DAILY PO Last administered on 12/24/18 08:20; Admin Dose 81 MG; Start 12/21/18 at 09:00 Carvedilol (Coreg) 50 mg Q12 PO Last administered on 12/23/18 20:41; Admin Dose 50 MG; Start 12/21/18 at 09:00 Clonidine (Catapres) 0.1 mg TID PO Last administered on 12/23/18 20:41; Admin Dose 0.1 MG; Start 12/21/18 at 09:00 Diphenhydramine HCl (Benadryl) 25 mg Q6 PRN PO ITCHING/RASH Last administered on 12/24/18 06:13; Admin Dose 25 MG; Start 12/21/18 at 02:30 Hydroxyzine HCl (Atarax) 50 mg Q8H PRN PO ITCHING Last administered on 12/23/18 10:24; Admin Dose 50 MG; Start 12/21/18 at 02:30 Lorazepam (Ativan) 1 mg TID PRN PO ANXIETY Last administered on 12/23/18 15:47; Admin Dose 1 MG; Start 12/21/18 at 02:30 Mycophenolate Mofetil (Cellcept) 1,000 mg BID PO Last administered on 12/24/18 08:20; Admin Dose 1,000 MG; Start 12/21/18 at 09:00 Nifedipine (Procardia Xl) 60 mg BID PO Last administered on 12/23/18 20:41; Admin Dose 60 MG; Start 12/21/18 at 09:00 Pantoprazole (Protonix Tab) 40 mg DAILY@0600 PO Last administered on 12/24/18 06:12; Admin Dose 40 MG; Start 12/21/18 at 06:00 Prednisone (Prednisone) 5 mg DAILY PO Last administered on 12/24/18 08:20; Admin Dose 5 MG; Start 12/21/18 at 09:00 Sertraline HCl (Zoloft) 25 mg DAILY PO Last administered on 12/24/18 08:20; Admin Dose 25 MG; Start 12/21/18 at 09:00 IV Flush (NS 3 ml) 3 ml PER PROTOCOL IV ; Start 12/21/18 at 02:30 Morphine Sulfate (morphine) 2 mg Q4H PRN IV .SEVERE PAIN 7-10 Last administered on 12/24/18 12:41; Admin Dose 2 MG; Start 12/21/18 at 02:30 Heparin Sodium (Porcine) (Heparin (5000 Units/1ml)) 5,000 unit Q12 SC Last administered on 12/24/18 08:39; Admin Dose 5,000 UNIT; Start 12/21/18 at 09:00 Temazepam (Restoril) 15 mg HS PRN PO INSOMNIA; Start 12/21/18 at 04:15 Acetaminophen (Tylenol Tab) 650 mg Q6H PRN PO MILD PAIN(1-3)OR ELEVATED TEMP Last administered on 12/23/18 11:11; Admin Dose 650 MG; Start 12/21/18 at 09:00 Ondansetron HCl (Zofran Inj) 4 mg Q4H PRN IV NAUSEA AND/OR VOMITING Last administered on 12/24/18 10:13; Admin Dose 4 MG; Start 12/21/18 at 09:30 Hydroxychloroquine Sulfate (Plaquenil) 200 mg MONWEDFRI PO Last administered on 12/22/18 08:35; Admin Dose 200 MG; Start 12/22/18 at 09:00 Albumin Human 100 ml @ 100 mls/hr WITH DIALYSIS PRN IV SBP <90 DURING DIALYSIS Last administered on 12/24/18 09:41; Admin Dose 100 MLS/HR; Start 12/21/18 at 11:00 Sodium Chloride (NS) -To prime the dialy... DIRECTED FOR HD PRN IV HD; Start 12/21/18 at 11:00 Furosemide (Lasix) 40 mg DAILY PO Last administered on 12/22/18at 08:28; Admin Dose 40 MG; Start 12/21/18 at 11:00 Metoclopramide HCl (Reglan) 5 mg Q4H PRN IV NAUSEA Last administered on 12/23/18at 23:31; Admin Dose 5 MG; Start 12/21/18 at 13:30 Heparin Sodium (Porcine) (Heparin (1000 Units/ml)) 4,500 unit AFTER DIALYSIS CATHETER Last administered on 12/24/18at 11:33; Admin Dose 4,500 UNIT; Start 12/21/18 at 14:00 Calcium Carbonate (Tums) 500 mg Q6H PRN PO tummy ache; Start 12/24/18 at 12:30 JESSE HINTON Dec 24, 2018 14:05
[2018-12-24] MEDS: LORAZEPAM 1 MG TAB PO PRN (14:27)
[2018-12-24] MEDS: ACETAMINOPHEN 325 MG TAB PO PRN (14:27)
[2018-12-24] MEDS: CALCIUM CARBONATE 500 MG CHEW TAB PO PRN (17:09)
[2018-12-25] VITALS (11 sets, daily range): BP systolic 99–121; BP diastolic 65–77; PULSE 74–94; RESP 16–19
[2018-12-25] MEDS: MYCOPHENOLATE 250 MG CAP PO SCH ×3 (00:53→20:42)
[2018-12-25] MEDS: morphine 2 MG INJ IV PRN ×4 (03:02→14:58)
[2018-12-25] MEDS: PANTOPRAZOLE (EC) 40 MG TAB PO SCH (05:54)
[2018-12-25] MEDS: ONDANSETRON 4 MG INJ IV PRN ×2 (06:50→17:29)
[2018-12-25] MEDS: NIFEdipine (XL) 60 MG TAB PO SCH ×2 (08:17→20:41)
[2018-12-25] MEDS: DIPHENHYDRAMINE 25 MG CAP PO PRN (08:24)
[2018-12-25] MEDS: LORAZEPAM 1 MG TAB PO PRN (08:24)
[2018-12-25] MEDS: FUROSEMIDE 40 MG TAB PO SCH (08:24)
[2018-12-25] MEDS: ASPIRIN (EC) 81 MG TAB PO SCH (08:25)
[2018-12-25] MEDS: predniSONE 5 MG TAB PO SCH (08:25)
[2018-12-25] MEDS: SERTRALINE 50 MG TAB PO SCH (08:25)
[2018-12-25] MEDS: HYDROXYCHLOROQUINE 200 MG TAB PO SCH (08:27)
[2018-12-25] MEDS: HEPARIN 5,000 UNIT/1 ML VIAL SC SCH ×2 (08:32→20:58)
[2018-12-25] MEDS ORDERED: ASPI-1046 PO (11:24)
--- NOTE | 2018-12-25 11:24 | PDOCDIS ---
Discharge Instructions CONDITION [id number] Patient Condition: [id number] Stable HOME CARE INSTRUCTIONS: [id number] Diet Instructions: Sztov3p Low Fat /Cholesterol ACTIVITY: Xuvch2Dm Activity Restrictions: [id number] Slowly Increase Activity Rest between Activity Avoid heavy lifting FOLLOW UP/APPOINTMENTS Follow-up Plan Please take your medication as prescribed, see your doctor in clinic in the next 1 week. CONSTANCE THOMPSON Dec 25, 2018 11:24
--- NOTE | 2018-12-25 11:29 | DS ---
Date/Time of Note Date/Time of Note DATE: 12/25/18 TIME: 11:27 Discharge Summary Admission/Discharge Info Admit Date/Time Dec 21, 2018 at 01:48 Discharge Date/Time Discharge Diagnosis #Hypertensive emergency - resolved - Continue home anti-hypertensives - Dialysis per renal. #Acute respiratory failure from pulmonary edema: - Now off BiPAP, on nasal cannula. - dialysis - May require home oxygen. Will do desat test when she is euvolemic prior to discharge home. #ESRD: #Hyperkalemia - Continue HD per Dr Dean - Dr. Kumar following for palliative care #SLE: - Continue prednisone 5, mycophenylate 1000 BID and plaquenil thrice weekly Patient Condition: Stable Hx of Present Illness 33 yo female with SLE and ESRD who present with resipratoyr distress Received HD today. Did well following this. When she got home, felt nauseous about 11 PM then developed shortness of breath. Arrived with severe hypertension and respiratory distress. Currently on BIPAP. When i took her off to interview, clearly tachypniec. Only current complaint is SOB Hospital Course Patient was admitted, seen by renal team, pain management, and social science teacher in this hospital stay. Patient's hypertensive emergency resolved, blood pressure was stable by the time of discharge and patient was able to tolerate her blood pressure medications. She also continue her medicines for lupus. She also continue dialysis as regularly scheduled. Again patient blood pressure improved, was waiting to be seen by physical therapy team before discharge today, but vital signs are stable, tolerating diet. Once we get clearance from residential solar sales consultant team and after seen by physical therapy team, patient likely will be discharged home later today in improved condition. See below for full list of discharge medications. Home Meds Active Scripts Aspirin* (Aspirin* (EC)) 81 Mg Tablet., 81 MG PO DAILY for 30 Days, #30 2 Refills otc Prov:CONSTANCE THOMPSON S. 12/25/18 Clonidine Hcl* (Catapres*) 0.1 Mg Tablet, 0.1 MG PO TID, #90 TAB Prov:VALERIA PETER [employer]. [employer] DRAFTER 12/14/18 Carvedilol* (Carvedilol*) 25 Mg Tablet, 50 MG PO Q12, #60 TAB Prov:FARHAD LEZAMA 11/23/18 Diphenhydramine Hcl* (Benadryl*) 25 Mg Cap, 25 MG PO Q6 PRN for ITCHING/RASH, #30 TAB Prov:JAIRFADY Otilio 11/16/18 Nifedipine (Procardia Xl) 60 Mg Tab.er.24, 60 MG PO BID for 30 Days, #60 TAB 2 Refills Prov:FARHAD LEZAMA. 10/30/18 Sertraline Hcl* (Sertraline Hcl*) 25 Mg Tablet, 25 MG PO DAILY for anxiety, #30 [facility] 10/30/18 Hydroxyzine Hcl* (Atarax*) 25 Mg Tab, 50 MG PO Q8H PRN for ITCHING, #30 TAB [facility]. 10/30/18 Pantoprazole* (Pantoprazole*) 40 Mg Tablet.dr, 40 MG PO DAILY, #30 TAB 2 Refills Prov:FARHAD LEZAMA . 10/30/18 Reported Medications Lorazepam* (Lorazepam*) 1 Mg Tablet, 1 MG PO TID PRN for ANXIETY for 14 Days 12/21/18 Temazepam (Restoril) 15 Mg Cap, 15 MG PO QHS PRN for SLEEP for 30 Days 12/21/18 Clonidine* (Cmpd) (Catapres SUSP (PEDIATRIC)*) 100 Mcg/Ml Susp, PO TID for 30 Days 12/21/18 Prednisone* (Prednisone*) 5 Mg Tab, 5 MG PO DAILY, TAB 11/16/18 Mycophenolate Mofetil* (Mycophenolate Mofetil*) 500 Mg Tablet, 1000 MG PO BID, TAB TAKE 2 TABLET BY MOUTH EVERY MORNING AND EVENING 06/30/18 Hydroxychloroquine Sulfate* (Hydroxychloroquine Sulfate*) 200 Mg Tablet, 200 MG PO DAILY, TAB TAKE 1 TAB BY MOUTH EVERY TUESDAY-Tuesday06/30/18 Discontinued Scripts Tramadol HCl (Tramadol HCl) 50 Mg Tablet, 50 MG PO Q4 PRN for severe pain, #6 TAB Prov:FADY ADAM 11/16/18 Follow-up Plan Please take your medication as prescribed, see your doctor in clinic in the next 1 week. Primary Care Provider Not On Staff Doctor Time spent on discharge: > 30 minutes CONSTANCE THOMPSON Dec 25, 2018 11:29
--- NOTE | 2018-12-25 16:28 | CONS ---
Assessment/Plan Assessment/Plan Assessment/Plan (Daily) 1. acute pulmonary edema due to acute fluid overload 2. Acute fluid overload 3. Accelerated HTN 4. ESRD on HD 4 times a week at [facility] 5. H/o HTN 6. H/o HL 7. h/o Lupus Plan: ok to d/c home today continue lasix 40mg po daily continue nifedipine Xl 60mg BID hydralazine 100mg pO BID and clonidine pt regualr HD schedule is TTS at [facility]- she is on 4 times a week HD schedule. will follow up Consultation Date/Type/Reason Admit Date/Time Dec 21, 2018 at 01:48 Initial Consult Date 12/21/18 Type of Consult NEPHROLOGY Requesting Provider: EMELY ORELLANA MD Date/Time of Note DATE: 12/25/18 TIME: 16:27 Exam/Review of Systems Exam Vitals Vital Signs Date Temp Pulse Resp B/P (MAP) Pulse Ox O2 O2 Flow FiO2 Time Delivery Rate 12/25/18 87 16:01 12/25/18 98.3 16 116/77 98 15:42 (90) 12/24/18 Room Air 12:12 12/23/18 2.0 28 17:24 Intake and Output 12/24/18 12/24/18 12/25/18 1515:00 23:00 07:00 IntakeIntake Total 300 ml OutputOutput Total 1700 ml 0 ml BalanceBalance -1700 ml 300 ml Exam Constitutional: alert Respiratory: congested cough, crackles/rales, diminished breath sounds Cardiovascular: regular rate and rhythm Gastrointestinal: soft, non-tender Musculoskeletal: nl extremities to inspection, nl gait and stance Extremities: normal pulses Results Result Diagram: 12/24/1803 12/24/18802 Medications Medication Current Medications Aspirin (Halfprin) 81 mg DAILY PO Last administered on 12/25/18at 08:25; Admin Dose 81 MG; Start 12/21/18 at 09:00 Carvedilol (Coreg) 50 mg Q12 PO Last administered on 12/24/18at 21:47; Admin Dose 50 MG; Start 12/21/18 at 09:00 Clonidine (Catapres) 0.1 mg TID PO Last administered on 12/24/18at 21:47; Admin Dose 0.1 MG; Start 12/21/18 at 09:00 Diphenhydramine HCl (Benadryl) 25 mg Q6 PRN PO ITCHING/RASH Last administered on 12/25/18 08:24; Admin Dose 25 MG; Start 12/21/18 at 02:30 Hydroxyzine HCl (Atarax) 50 mg Q8H PRN PO ITCHING Last administered on 12/23/18 10:24; Admin Dose 50 MG; Start 12/21/18 at 02:30 Lorazepam (Ativan) 1 mg TID PRN PO ANXIETY Last administered on 12/25/18 08:24; Admin Dose 1 MG; Start 12/21/18 at 02:30 Mycophenolate Mofetil (Cellcept) 1,000 mg BID PO Last administered on 12/25/18 08:25; Admin Dose 1,000 MG; Start 12/21/18 at 09:00 Nifedipine (Procardia Xl) 60 mg BID PO Last administered on 12/24/18 21:47; Admin Dose 60 MG; Start 12/21/18 at 09:00 Pantoprazole (Protonix Tab) 40 mg DAILY@0600 PO Last administered on 12/25/18 05:54; Admin Dose 40 MG; Start 12/21/18 at 06:00 Prednisone (Prednisone) 5 mg DAILY PO Last administered on 12/25/18 08:25; Admin Dose 5 MG; Start 12/21/18 at 09:00 Sertraline HCl (Zoloft) 25 mg DAILY PO Last administered on 12/25/18 08:25; Admin Dose 25 MG; Start 12/21/18 at 09:00 IV Flush (NS 3 ml) 3 ml PER PROTOCOL IV ; Start 12/21/18 at 02:30 Morphine Sulfate (morphine) 2 mg Q4H PRN IV .SEVERE PAIN 7-10 Last administered on 12/25/18 14:58; Admin Dose 2 MG; Start 12/21/18 at 02:30 Heparin Sodium (Porcine) (Heparin (5000 Units/1ml)) 5,000 unit Q12 SC Last administered on 12/25/18 08:32; Admin Dose 5,000 UNIT; Start 12/21/18 at 09:00 Temazepam (Restoril) 15 mg HS PRN PO INSOMNIA; Start 12/21/18 at 04:15 Acetaminophen (Tylenol Tab) 650 mg Q6H PRN PO MILD PAIN(1-3)OR ELEVATED TEMP Last administered on 12/24/18 14:27; Admin Dose 650 MG; Start 12/21/18 at 09:00 Ondansetron HCl (Zofran Inj) 4 mg Q4H PRN IV NAUSEA AND/OR VOMITING Last administered on 12/25/18 06:50; Admin Dose 4 MG; Start 12/21/18 at 09:30 Hydroxychloroquine Sulfate (Plaquenil) 200 mg MONWEDFRI PO Last administered on 12/25/18 08:27; Admin Dose 200 MG; Start 12/22/18 at 09:00 Albumin Human 100 ml @ 100 mls/hr WITH DIALYSIS PRN IV SBP <90 DURING DIALYSIS Last administered on 12/24/18 09:41; Admin Dose 100 MLS/HR; Start 12/21/18 at 11:00 Sodium Chloride (NS) -To prime the dialy... DIRECTED FOR HD PRN IV HD; Start 12/21/18 at 11:00 Furosemide (Lasix) 40 mg DAILY PO Last administered on 12/25/18 08:24; Admin Dose 40 MG; Start 12/21/18 at 11:00 Metoclopramide HCl (Reglan) 5 mg Q4H PRN IV NAUSEA Last administered on 12/23/18 23:31; Admin Dose 5 MG; Start 12/21/18 at 13:30 Heparin Sodium (Porcine) (Heparin (1000 Units/ml)) 4,500 unit AFTER DIALYSIS CATHETER Last administered on 12/24/18 11:33; Admin Dose 4,500 UNIT; Start 12/21/18 at 14:00 Calcium Carbonate (Tums) 500 mg Q6H PRN PO tummy ache Last administered on 12/24/18 17:09; Admin Dose 500 MG; Start 12/24/18 at 12:30 ARTURO AMADOR MD Dec 25, 2018 16:27
[2018-12-25] MEDS ORDERED: TRIMETHOBENZAMIDE 100 MG/ML VIAL IM PRN (18:30)
[2018-12-25] MEDS: METOCLOPRAMIDE 10 MG INJ IV PRN (18:43)
[2018-12-25] MEDS ORDERED: morphine 2 MG INJ IV PRN (19:00)
[2018-12-25] MEDS ORDERED: ONDANSETRON INJ 8 MG in SOD CHLORIDE 0.9% 50 ML IV PRN ×4 (19:00)
[2018-12-25] MEDS ORDERED: HYDROCODONE/APAP (5/325) TAB PO PRN (19:00)
[2018-12-25] MEDS: CALCIUM CARBONATE 500 MG CHEW TAB PO PRN (20:41)
[2018-12-25] MEDS: ACETAMINOPHEN 325 MG TAB PO PRN (20:41)
[2018-12-25] MEDS ORDERED: ONDANSETRON 4 MG INJ IV PRN (21:30)
== END 2018-12-25 21:15 | disposition home or self-care (01) | DRG 189 ==
LOC: E/R 23:21 → ICU 12-21 01:48 → TEL 12-21 21:09
PROVIDERS: ADMIT Internal Medicine; ATTEND Hospitalist
PROC: 5A09357 Assistance with Respiratory Ventilation, Less than 24 Consecutive Hours, Continuous Positive Airway Pressure (ICD-10-PCS; principal; 2018-12-21)
PROC: 5A1D70Z Performance of Urinary Filtration, Intermittent, Less than 6 Hours Per Day (ICD-10-PCS; 2018-12-21)
PROC: 5A1D70Z Performance of Urinary Filtration, Intermittent, Less than 6 Hours Per Day (ICD-10-PCS; 2018-12-22)
PROC: 5A1D70Z Performance of Urinary Filtration, Intermittent, Less than 6 Hours Per Day (ICD-10-PCS; 2018-12-23)
DX: J81.0 Acute pulmonary edema (principal); N18.6 End stage renal disease; J96.00 Acute respiratory failure, unspecified whether with hypoxia or hypercapnia; I16.1 Hypertensive emergency; I12.0 Hypertensive chronic kidney disease with stage 5 chronic kidney disease or end stage renal disease; E87.70 Fluid overload, unspecified; M32.9 Systemic lupus erythematosus, unspecified; F41.9 Anxiety disorder, unspecified; E87.5 Hyperkalemia; E78.5 Hyperlipidemia, unspecified; I25.2 Old myocardial infarction; Z99.2 Dependence on renal dialysis
CPT/HCPCS: 36415; 36600; 71045; 80048; 80053; 82550; 82553; 82803; 83036; 83735; 84100; 84484; 85025; 87081; 90935; 93005; 94660; 96374; 96375; 97161; J0360; J1644; J1940; J2270; J2405; J2765; J2997; J7040; J7050; J7512; J7517; P9047

== ENCOUNTER 2019-01-12 06:36 | Inpatient (IN) | payer MEDICARE, OTHER ==
[~2019-01-12] VITALS: Ht 162.6 cm; Wt 44.0 kg
[2019-01-12] VITALS (55 sets, daily range): BP systolic 125–201; BP diastolic 95–166; PULSE 78–112; RESP 8–27; Ht 162.6 cm; Wt 44.0 kg
[~2019-01-12 06:36] MED LIST changes: +CLOS PO; +LORA1TAB PO; +TEMA-106 PO; -TRAM50TA2 PO
[2019-01-12] MEDS ORDERED: ASPIRIN 81 MG TAB PO STA (06:51)
[2019-01-12] MEDS ORDERED: ONDANSETRON 4 MG INJ IV STA (06:51)
[2019-01-12] MEDS ORDERED: morphine 4 MG/ML VIAL IV STA ×2 (06:51→09:01)
[2019-01-12] MEDS: NITROGLYCERIN (SL) 0.4 MG TAB SL PRN ×3 (06:55→07:47)
[2019-01-12] MEDS ORDERED: NIFEdipine (XL) 60 MG TAB PO ONE (07:30)
--- NOTE | 2019-01-12 07:30 | ERD ---
ER Documentation Chief Complaint Chief Complaint CHEST PAIN, SOB, HX OF DIALYSIS, ASCITES HPI 33-year-old female with history of lupus complicated by dialysis getting dialysis Tuesday and now Tuesday secondary to persistent volume overload. The patient presents to the emergency room complaining of chest pain shortness of breath and nausea. She states that this feels similar to when she had volume overload and fluid on her lungs. She denies any pleuritic pain, no lower extremity swelling though remote history of DVT. Not currently on anticoagulation. Blood pressure has been noted to be in the 200s. ROS All systems reviewed and are negative except as per history of present illness. Medications Home Meds Active Scripts Aspirin* (Aspirin* (EC)) 81 Mg Tablet., 81 MG PO DAILY for 30 Days, #30 2 Refills otc Prov:CONSTANCE THOMPSON 12/25/18 Clonidine Hcl* (Catapres*) 0.1 Mg Tablet, 0.1 MG PO TID, #90 TAB Prov:VALERIA PETER NP 12/14/18 Carvedilol* (Carvedilol*) 25 Mg Tablet, 50 MG PO Q12, #60 TAB Prov:FARHAD LEZAMA M. 11/23/18 Diphenhydramine Hcl* (Benadryl*) 25 Mg Cap, 25 MG PO Q6 PRN for ITCHING/RASH, #30 TAB Prov:FADY ADAM 11/16/18 Nifedipine (Procardia Xl) 60 Mg Tab.er.24, 60 MG PO BID for 30 Days, #60 TAB 2 Refills Prov:FARHAD LEZAMA. 10/30/18 Sertraline Hcl* (Sertraline Hcl*) 25 Mg Tablet, 25 MG PO DAILY for anxiety, #30 TAB Prov:LISEFARHAD Diaz M. 10/30/18 Hydroxyzine Hcl* (Atarax*) 25 Mg Tab, 50 MG PO Q8H PRN for ITCHING, #30 TAB Prov:LISEFARHAD Diaz M. 10/30/18 Pantoprazole* (Pantoprazole*) 40 Mg Tablet., 40 MG PO DAILY, #30 TAB 2 Refills Prov:FARHAD LEZAMA. 12/31/18 Reported Medications Lorazepam* (Lorazepam*) 1 Mg Tablet, 1 MG PO TID PRN for ANXIETY for 14 Days 12/21/18 Temazepam (Restoril) 15 Mg Cap, 15 MG PO QHS PRN for SLEEP for 30 Days 12/21/18 Clonidine* (Cmpd) (Catapres SUSP (PEDIATRIC)*) 100 Mcg/Ml Susp, PO TID for 30 Days 12/21/18 Prednisone* (Prednisone*) 5 Mg Tab, 5 MG PO DAILY, TAB 11/16/18 Mycophenolate Mofetil* (Mycophenolate Mofetil*) 500 Mg Tablet, 1000 MG PO BID, TAB TAKE 2 TABLET BY MOUTH EVERY MORNING AND EVENING 06/30/18 Hydroxychloroquine Sulfate* (Hydroxychloroquine Sulfate*) 200 Mg Tablet, 200 MG PO DAILY, TAB TAKE 1 TAB BY MOUTH EVERY TUESDAY-Tuesday06/30/18 Allergies Allergies: Coded Allergies: hydrocodone (Unverified Allergy, Unknown, paralysis, 01/12/19) PMhx/Soc History of Surgery: Yes (FISTULA PLACEMENT) Anesthesia Reaction: No Hx Neurological Disorder: No Hx Respiratory Disorders: Yes Hx Cardiac Disorders: Yes (HTN) Hx Psychiatric Problems: Yes Hx Miscellaneous Medical Probl: Yes (ESRD and systemic lupus erythematosus ) Hx Alcohol Use: No Hx Substance Use: No Hx Tobacco Use: No Smoking Status: Never smoker FmHx Family History: No diabetes Physical Exam Vitals Vital Signs Date Temp Pulse Resp B/P (MAP) Pulse Ox O2 O2 Flow FiO2 Time Delivery Rate 01/12/19 98.6 81 20 187/113 100 Nasal 2.0 08:02 (137) Cannula 01/12/19 Nasal 2 07:27 Cannula 01/12/19 89 22 189/118 98 Room Air 07:00 (141) 01/12/19 89 19 216/115 98 Room Air 06:50 (148) 01/12/19 98.6 73 19 205/124 98 06:41 (151) Physical Exam General: Cachectic, stigmata of lupus Head: Normocephalic, atraumatic. Eyes: Pupils equally reactive, EOM intact ENT: Moist mucous membranes Neck: Supple, no lymphadenopathy Respiratory: Rales at the bases bilaterally, good aeration, slight tachypnea Cardiovascular: RRR, no murmurs, rubs, or gallops Abdominal: Soft, non-tender, non-distended, no peritoneal signs : Deferred MSK: No edema, no unilateral swelling, 5/5 strength Neurologic: Alert and oriented, moving all extremities, normal speech, no focal weakness, no cerebellar signs Skin: Malar rash Psych: Normal mood Result Diagram: 01/12/19 0741 01/12/19 0741 Results 24 hrs Laboratory Tests Test 01/12/19 07:41 White Blood Count 2.9 10^3/ul Red Blood Count 2.84 10^6/ul Hemoglobin 8.7 g/dl Hematocrit 30.2 % Mean Corpuscular Volume 106.3 fl Mean Corpuscular Hemoglobin 30.6 pg Mean Corpuscular Hemoglobin Concent 28.8 g/dl Red Cell Distribution Width 17.2 % Platelet Count 116 10^3/UL Mean Platelet Volume 11.2 fl Immature Granulocytes % 0.300 % Neutrophils % 52.1 % Lymphocytes % 38.4 % Monocytes % 7.2 % Eosinophils % 1.7 % Basophils % 0.3 % Nucleated Red Blood Cells % 0.0 /100WBC Immature Granulocytes # 0.010 10^3/ul Neutrophils # 1.5 10^3/ul Lymphocytes # 1.1 10^3/ul Monocytes # 0.2 10^3/ul Eosinophils # 0.1 10^3/ul Basophils # 0.0 10^3/ul Nucleated Red Blood Cells # 0.0 10^3/ul Prothrombin Time 13.1 Sec Prothrombin Time Ratio 1.0 INR International Normalized Ratio 0.98 Activated Partial Thromboplast Time 32.9 Sec Sodium Level 143 mmol/L Potassium Level 5.2 mmol/L Chloride Level 107 mmol/L Carbon Dioxide Level 25 mmol/L Anion Gap 11 Blood Urea Nitrogen 16 mg/dl Creatinine 3.73 mg/dl Est Glomerular Filtrat Rate mL/min 14 mL/min Glucose Level 71 mg/dl Calcium Level 9.0 mg/dl Troponin I 0.018 ng/ml Current Medications Medications Dose Sig/Damaso Start Time Status Last (Trade) Ordered Route PRN Stop Time Admin Dose Reason Admin Aspirin 162 mg ONCE STAT 01/12/19 DC 01/12/19 (Aspirin) PO 06:51 06:55 01/12/19 06:52 1 tab Q5M UP TO 3 01/12/19 01/12/19 Nitroglycerin DOSES PRN 07:00 07:47 SL .CHEST (Nitroglyceri PAIN n (Sl Tab) 0.4 Mg) Morphine 4 mg ONCE STAT 01/12/19 DC 01/12/19 Sulfate IV 06:51 07:18 (morphine) 01/12/19 06:52 Ondansetron 4 mg ONCE STAT 01/12/19 DC 01/12/19 HCl (Zofran IV 06:51 07:18 Inj) 01/12/19 06:52 Nifedipine 60 mg ONCE ONCE 01/12/19 DC 01/12/19 (Procardia PO 07:30 07:23 Xl) 01/12/19 07:31 250 ml @ 6 ONCE STAT 01/12/19 01/12/19 Nitroglycerin mls/hr IV 08:32 09:01 / Dextrose 01/14/19 02:11 250 ml @ ud STK-MED 01/12/19 DC Nitroglycerin ONCE .ROUTE 08:33 / Dextrose 01/12/19 08:34 Famotidine 20 mg ONCE ONCE 01/12/19 (Pepcid Iv) IV 09:30 01/12/19 09:31 Morphine 4 mg ONCE STAT 01/12/19 DC Sulfate IV 09:01 (morphine) 01/12/19 09:02 Procedures/MDM EKG, MONITORS, & DIAGNOSTIC IMAGING: EKG: I reviewed and interpreted a 12-lead EKG. Rhythm: Normal sinus rhythm ST Changes: No contiguous ST segment elevations T waves: No contiguous T wave inversions Impression: [No evidence of acute cardiac ischemia] Chest x-ray: I reviewed and interpreted a 1 view of the chest Mediastinum: No enlargement Cardiac silhouette: cardiomegaly Airspace: Interstitial process bilaterally Bones: No evidence of fracture LAB INTERPRETATION: I reviewed the laboratory testing and it shows no significant hyperkalemia, n egative troponin MEDICAL DECISION MAKING: Patient's presentation is consistent with likely hypertensive urgency versus emergency. The patient has significantly elevated blood pressure, pulmonary daina ma on clinical exam and diagnostic imaging. I have a lower clinical concern for pulmonary embolism. While the patient is at risk I have a better alternative diagnosis. No indication for CTPA at this time. Patient will benefit from afterload and preload reduction, dialysis. Dr. Joao Dean her loom operator was notified, he is recommending nifedipine XL 60 mg to be given and will arrange for dialysis. ER COURSE: * Patient was given nitroglycerin, aspirin, pain control medication with improved pain. Blood pressure improving in the right direction. Goal would be to get the patient close to 160 systolic. Nitroglycerin drip may be necessary but continue to monitor. * Blood pressure is improving. Patient was given nifedipine as well as second dose of nitroglycerin. Pain controlled. * The patient still had some mild discomfort alleviated with morphine and Pepcid. The patient's abdominal exam is benign. Blood pressure slightly improved but then went back up. Nitroglycerin drip initiated. * Patient is protecting her airway and does not require positive pressure ventilation at this time. Continue to monitor. Admitting team and loom operator notified CONSULTATION: Dr. Joao Dean, nephrology DISPOSITION PLAN: Accepting care team and consultations: I discussed the current laboratory data, diagnostic imaging and emergency care provided. Admitting team: Dr. Lezama Admitting team indication: Insurance directed Critical Care Note: Total time: 30 minutes Indication/Organ System Threat: Hypertensive emergency with active pulmonary edema requiring blood pressure reduction to prevent positive pressure ventilation and intubation. I spent the above amount of critical care time with the patient, not including billable procedures. This included chart review, consultations, repeat bedside evaluations, and titration of appropriate medications to prevent cardiopulmonary or respiratory collapse. Departure Diagnosis: Primary Impression: Hypertensive emergency Additional Impressions: Acute pulmonary edema End stage renal disease on dialysis Chest pain Chest pain type: unspecified Qualified Codes: R07.9 - Chest pain, unspecified Condition: Serious BRETT JIMÉNEZ MD Jan 12, 2019 07:30
[2019-01-12] MEDS ORDERED: NITROGLYCERIN 50 MG/D5W (PMX) 250 ML IV STA (08:32)
[2019-01-12] MEDS ORDERED: NITROGLYCERIN 50 MG/D5W (PMX) 250 ML ONE (08:33)
[2019-01-12] MEDS ORDERED: FAMOTIDINE 20 MG INJ IV ONE (09:30)
--- NOTE | 2019-01-12 11:11 | CONS ---
Assessment/Plan Assessment/Plan Assessment/Plan (Daily) 1. acute fluid overload 2 acute hyperkalemia 3. Hypertensive emergency 4. ESRD on HD 4 times a week 5. H/o HTN 6. h/o HL 7. H/o Lupus Plan: seen in ICU, throwing up, will give reglan 10mg IV x 1 dose now Plan for HD today and tomorrow, 3 L UF and 3 UF tomorrow Nifedipine XL 60mg BID, IV hydralazine prn Continue other home BP meds Thanks for consultation, I will continue to follow up Consultation Date/Type/Reason Admit Date/Time Jan 12, 2019 at 08:34 Date of Consultation: Jan 12, 2019 Type of Consult NEPHROLOGY Reason for Consultation acute fluid overload, Hypertensive emergency Requesting Provider: JES ANDREWS Date/Time of Note DATE: 01/12/19 TIME: 11:11 Hx of Present Illness 33 yo woman with ESRD and SLE who presents with acute respiratory failure from pulmonary edema in setting of hypertensive emergency. p josé a hyperkalemia, fluid overload on admission, started on NTG drip , admitted to ICU, pt is c/o nausea, vomiting, abdominal pain Labs reviewed, renal has been consulted for acute hyperkalemia, fluid overload and HTN emergency Constitutional: no complaints Eyes: no complaints ENT: no complaints Respiratory: cough, pleuritic pain, shortness of breath Cardiovascular: lightheadedness Gastrointestinal: nausea, vomiting Genitourinary: no complaints Musculoskeletal: no complaints Skin: no complaints Neurologic: no complaints Endocrine: no complaints Lymphatic: no complaints Psychological: no complaints Immunologic: no complaints Past Medical History Medical History: high cholesterol, hypertension, other (ESRD on HD, Lupus ) Home Meds Active Scripts Aspirin* (Aspirin* (EC)) 81 Mg Tablet.dr, 81 MG PO DAILY for 30 Days, #30 2 Refills otc Prov:CONSTANCE THOMPSON S. 12/25/18 Clonidine Hcl* (Catapres*) 0.1 Mg Tablet, 0.1 MG PO TID, #90 TAB Prov:VALERIA PETER V. TUNE UP MECHANIC 12/14/18 Carvedilol* (Carvedilol*) 25 Mg Tablet, 50 MG PO Q12, #60 TAB Prov:FARHAD LEZAMA 11/23/18 Diphenhydramine Hcl* (Benadryl*) 25 Mg Cap, 25 MG PO Q6 PRN for ITCHING/RASH, #30 TAB Prov:FADY ADAM 11/16/18 Nifedipine (Procardia Xl) 60 Mg Tab.er.24, 60 MG PO BID for 30 Days, #60 TAB 2 Refills Prov:FARHAD LEZAMA . 10/30/18 Sertraline Hcl* (Sertraline Hcl*) 25 Mg Tablet, 25 MG PO DAILY for anxiety, #30 TAB Prov[facility] 10/30/18 Hydroxyzine Hcl* (Atarax*) 25 Mg Tab, 50 MG PO Q8H PRN for ITCHING, #30 TAB Prov[facility] 10/30/18 Pantoprazole* (Pantoprazole*) 40 Mg Tablet.dr, 40 MG PO DAILY, #30 TAB 2 Refills Prov[facility] 10/30/18 Reported Medications Lorazepam* (Lorazepam*) 1 Mg Tablet, 1 MG PO TID PRN for ANXIETY for 14 Days 12/21/18 Temazepam (Restoril) 15 Mg Cap, 15 MG PO QHS PRN for SLEEP for 30 Days 12/21/18 Clonidine* (Cmpd) (Catapres SUSP (PEDIATRIC)*) 100 Mcg/Ml Susp, PO TID for 30 Days 12/21/18 Prednisone* (Prednisone*) 5 Mg Tab, 5 MG PO DAILY, TAB 11/16/18 Mycophenolate Mofetil* (Mycophenolate Mofetil*) 500 Mg Tablet, 1000 MG PO BID, TAB TAKE 2 TABLET BY MOUTH EVERY MORNING AND EVENING 06/30/18 Hydroxychloroquine Sulfate* (Hydroxychloroquine Sulfate*) 200 Mg Tablet, 200 MG PO DAILY, TAB TAKE 1 TAB BY MOUTH EVERY TUESDAY-Tuesday06/30/18 Medications Current Medications Nitroglycerin (Nitroglycerin (Sl Tab) 0.4 Mg) 1 tab Q5M UP TO 3 DOSES PRN SL .C HEST PAIN Last administered on 01/12/19at 07:47; Admin Dose 1 TAB; Start 01/12/19 at 07:00 Nitroglycerin/ Dextrose 250 ml @ 6 mls/hr ONCE STAT IV Last administered on 01/12/19at 09:01; Admin Dose 6 MLS/HR; Start 01/12/19 at 08:32; Stop 01/14/19 at 02:11 Allergies: Coded Allergies: hydrocodone (Unverified Allergy, Unknown, paralysis, 01/12/19) Past Surgical History Past Surgical Hx: other (Kindey biopsy, Permacath R chest ) Social History Alcohol Use: none Smoking Status: Never smoker Drug Use: none Exam/Review of Systems Exam Vitals Vital Signs Date Temp Pulse Resp B/P (MAP) Pulse Ox O2 O2 Flow FiO2 Time Delivery Rate 01/12/19 89 10:00 01/12/19 98.6 20 185/117 100 Nasal 2.0 09:45 (139) Cannula Constitutional: distress Psych: no complaints Head: normocephalic Eyes: nl conjunctiva ENMT: nl external ears & nose Neck: supple, non-tender Respiratory: congested cough, crackles/rales, diminished breath sounds Cardiovascular: regular rate and rhythm, nl pulses Gastrointestinal: soft, non-tender Musculoskeletal: muscle weakness, swelling Extremities: normal pulses Neurological: DECK MATE II-XII intact, nl mental status Skin: nl turgor Lymph: nl lymph nodes Results Result Diagram: 01/12/19 0741 01/12/19 0741 Results 24hrs Laboratory Tests Test 01/12/19 07:41 White Blood Count 2.9 #L Red Blood Count 2.84 #L Hemoglobin 8.7 #L Hematocrit 30.2 #L Mean Corpuscular Volume 106.3 H Mean Corpuscular Hemoglobin 30.6 Mean Corpuscular Hemoglobin Concent 28.8 L Red Cell Distribution Width 17.2 H Platelet Count 116 #L Mean Platelet Volume 11.2 H Immature Granulocytes % 0.300 Neutrophils % 52.1 Lymphocytes % 38.4 Monocytes % 7.2 Eosinophils % 1.7 Basophils % 0.3 Nucleated Red Blood Cells % 0.0 Immature Granulocytes # 0.010 Neutrophils # 1.5 L Lymphocytes # 1.1 Monocytes # 0.2 L Eosinophils # 0.1 Basophils # 0.0 Nucleated Red Blood Cells # 0.0 Prothrombin Time 13.1 Prothrombin Time Ratio 1.0 INR International Normalized Ratio 0.98 Activated Partial Thromboplast Time 32.9 Sodium Level 143 Potassium Level 5.2 H Chloride Level 107 Carbon Dioxide Level 25 Anion Gap 11 Blood Urea Nitrogen 16 Creatinine 3.73 H Est Glomerular Filtrat Rate mL/min 14 L Glucose Level 71 Calcium Level 9.0 Troponin I 0.018 Medications Medication Current Medications Nitroglycerin (Nitroglycerin (Sl Tab) 0.4 Mg) 1 tab Q5M UP TO 3 DOSES PRN SL .CHEST PAIN Last administered on 01/12/19at 07:47; Admin Dose 1 TAB; Start 01/12/19 at 07:00 Nitroglycerin/ Dextrose 250 ml @ 6 mls/hr ONCE STAT IV Last administered on 01/12/19at 09:01; Admin Dose 6 MLS/HR; Start 01/12/19 at 08:32; Stop 01/14/19 at 02:11 ARTURO AMADOR MD Jan 12, 2019 11:11
[2019-01-12] MEDS ORDERED: SODIUM CHLORIDE 0.9% 1L BAG IV PRN (11:30)
[2019-01-12] MEDS ORDERED: ALBUMIN HUMAN 25% 100 ML IV PRN (11:30)
[2019-01-12] MEDS ORDERED: HEPARIN 1000 UNITS/ML 10 ML INJ CATHETER SCH (11:30)
[2019-01-12] MEDS ORDERED: CLONIDINE PO SCH (11:30)
[2019-01-12] MEDS ORDERED: hydrOXYzine HCL 25 MG TAB PO PRN (11:30)
[2019-01-12] MEDS: MYCOPHENOLATE 250 MG CAP PO SCH ×2 (11:30→22:13)
[2019-01-12] MEDS ORDERED: hydrALAzine 20 MG INJ IV PRN ×2 (11:30→14:00)
[2019-01-12] MEDS: DIPHENHYDRAMINE 25 MG CAP PO PRN (11:35)
[2019-01-12] MEDS: NIFEdipine (XL) 60 MG TAB PO SCH ×2 (11:35→22:13)
[2019-01-12] MEDS: PANTOPRAZOLE (EC) 40 MG TAB PO SCH (11:35)
[2019-01-12] MEDS: ASPIRIN (EC) 81 MG TAB PO SCH (11:36)
[2019-01-12] MEDS: HYDROXYCHLOROQUINE 200 MG TAB PO SCH (11:36)
[2019-01-12] MEDS: predniSONE 5 MG TAB PO SCH (11:36)
[2019-01-12] MEDS: ONDANSETRON 4 MG INJ IV PRN ×2 (12:02→23:31)
[2019-01-12] MEDS: METOCLOPRAMIDE 10 MG INJ IV SCH ×4 (13:30→19:43)
[2019-01-12] MEDS: morphine 2 MG INJ IV PRN ×3 (13:30→23:31)
[2019-01-12] MEDS: ACETAMINOPHEN 325 MG TAB PO PRN ×2 (15:51→20:13)
[2019-01-12] MEDS ORDERED: LABETALOL HCL 20MG INJ IV PRN (16:00)
[2019-01-12] MEDS: LORAZEPAM 1 MG TAB PO PRN (19:39)
[2019-01-13] VITALS (62 sets, daily range): BP systolic 99–155; BP diastolic 57–103; PULSE 71–97; RESP 8–30
[2019-01-13] MEDS: morphine 2 MG INJ IV PRN ×5 (03:20→21:13)
[2019-01-13] MEDS: METOCLOPRAMIDE 10 MG INJ IV SCH ×5 (06:47→23:06)
[2019-01-13] MEDS: LORAZEPAM 1 MG TAB PO PRN (07:03)
[2019-01-13] MEDS: predniSONE 5 MG TAB PO SCH (09:51)
[2019-01-13] MEDS: SERTRALINE 50 MG TAB PO SCH (09:51)
[2019-01-13] MEDS: PANTOPRAZOLE (EC) 40 MG TAB PO SCH (09:51)
[2019-01-13] MEDS: MYCOPHENOLATE 250 MG CAP PO SCH ×2 (09:52→20:06)
[2019-01-13] MEDS: ASPIRIN (EC) 81 MG TAB PO SCH (09:52)
[2019-01-13] MEDS: HYDROXYCHLOROQUINE 200 MG TAB PO SCH (09:53)
[2019-01-13] MEDS: NIFEdipine (XL) 60 MG TAB PO SCH ×2 (12:47→20:07)
[2019-01-13] MEDS: ACETAMINOPHEN 325 MG TAB PO PRN (13:25)
[2019-01-13] MEDS: DIPHENHYDRAMINE 25 MG CAP PO PRN ×2 (14:45→20:09)
--- NOTE | 2019-01-13 15:20 | PN ---
Date/Time of Note Date/Time of Note DATE: 01/13/19 TIME: 15:16 Assessment/Plan VTE Prophylaxis Risk score (from Nsg)>0 risk: 2 SCD applied (from Nsg): Yes Pharmacological prophylaxis: heparin Lines/Catheters IV Catheter Type (from Nrsg): Saline Lock Assessment/Plan Assessment/Plan 33 yo woman with ESRD and SLE who presents with acute respiratory failure from pulmonary edema in setting of hypertensive emergency #Hypertensive emergency - resolved - Continue home anti-hypertensives - Dialysis per renal. #Acute respiratory failure from pulmonary edema: - Now on nasal cannula - dialysis #ESRD: #Hyperkalemia - Continue HD per Dr Dean #SLE: - Continue prednisone 5, mycophenylate 1000 BID and plaquenil thrice weekly DVT: heparin GI: None Result Diagram: 01/13/1945301/13/19453 Subjective 24 Hr Interval Summary Free Text/Dictation No acute overnight events. Off nitro gtt. Got dialysis yesterday and today. She reports mild chest discomfort. Exam/Review of Systems Exam Vitals Vital Signs Date Temp Pulse Resp B/P (MAP) Pulse Ox O2 O2 Flow FiO2 Time Delivery Rate 01/13/19 97.5 80 20 108/70 99 Room Air 13:54 (83) 01/13/19 2.0 10:49 Intake and Output 01/12/19 01/12/19 01/13/19 1515:00 23:00 07:00 IntakeIntake Total 546 ml 286 ml 100 ml OutputOutput Total 580 ml 5900 ml BalanceBalance -34 ml -5614 ml 100 ml Exam Gen: Frail appearing thin woman well appearing Eyes: PERRL, no icterus HEENT: Moist mucous membranes, splotchy erythema on face. Neck: No JVD. No lymphadenopathy. Chest: L chest permacath in place. Card: Regular rate and rhythm, no murmurs Pulm: Clear to auscultation bilaterally. Abd: Soft, nontender, nondistended. Ext: LUE AV fistula with bruit. Skin: warm, dry, well perfused. Results Results 24hrs Laboratory Tests Test 01/12/19 18:31 01/13/19 04:54 01/13/19 08:32 Creatine Kinase 27 Creatine Kinase Index 1.2 Creatinine Kinase MB (Mass) 0.32 Troponin I 0.032 White Blood Count 4.7 #L Red Blood Count 2.74 L Hemoglobin 8.7 L Hematocrit 28.3 L Mean Corpuscular Volume 103.3 H Mean Corpuscular Hemoglobin 31.8 Mean Corpuscular Hemoglobin Concent 30.7 L Red Cell Distribution Width 16.7 H Platelet Count 108 L Mean Platelet Volume 11.5 H Immature Granulocytes % 0.200 Neutrophils % 67.4 Lymphocytes % 18.1 Monocytes % 13.5 H Eosinophils % 0.6 Basophils % 0.2 Nucleated Red Blood Cells % 0.0 Immature Granulocytes # 0.010 Neutrophils # 3.1 Lymphocytes # 0.8 Monocytes # 0.6 Eosinophils # 0.0 Basophils # 0.0 Nucleated Red Blood Cells # 0.0 Sodium Level 135 Potassium Level 4.7 Chloride Level 95 #L Carbon Dioxide Level 30 Anion Gap 10 Blood Urea Nitrogen 12 Creatinine 2.98 H Est Glomerular Filtrat Rate mL/min 18 L Glucose Level 67 L Calcium Level 9.4 Phosphorus Level 5.2 H Magnesium Level 1.8 Bedside Glucose 108 Medications Medication Current Medications Nitroglycerin (Nitroglycerin (Sl Tab) 0.4 Mg) 1 tab Q5M UP TO 3 DOSES PRN SL .CHEST PAIN Last administered on 01/12/19 07:47; Admin Dose 1 TAB; Start 01/12/19 at 07:00 Aspirin (Halfprin) 81 mg DAILY PO Last administered on 01/13/19 09:52; Admin Dose 81 MG; Start 01/12/19 at 11:30 Carvedilol (Coreg) 50 mg Q12 PO Last administered on 01/13/19 12:47; Admin Dose 50 MG; Start 01/12/19 at 11:30 Clonidine (Catapres) 0.1 mg TID PO Last administered on 01/13/19 13:18; Admin Dose 0.1 MG; Start 01/12/19 at 13:00 Diphenhydramine HCl (Benadryl) 25 mg Q6 PRN PO ITCHING/RASH Last administered on 01/13/19 14:45; Admin Dose 25 MG; Start 01/12/19 at 11:30 Hydroxychloroquine Sulfate (Plaquenil) 200 mg DAILY PO Last administered on 01/13/19 09:53; Admin Dose 200 MG; Start 01/12/19 at 11:30 Hydroxyzine HCl (Atarax) 50 mg Q8H PRN PO ITCHING; Start 01/12/19 at 11:30 Lorazepam (Ativan) 1 mg TID PRN PO ANXIETY Last administered on 01/13/19 07:03; Admin Dose 1 MG; Start 01/12/19 at 11:30 Mycophenolate Mofetil (Cellcept) 1,000 mg BID PO Last administered on 01/13/19 09:52; Admin Dose 1,000 MG; Start 01/12/19 at 11:30 Nifedipine (Procardia Xl) 60 mg BID PO Last administered on 01/13/19 12:47; Admin Dose 60 MG; Start 01/12/19 at 11:30 Pantoprazole (Protonix Tab) 40 mg DAILY PO Last administered on 01/13/19 09:51; Admin Dose 40 MG; Start 01/12/19 at 11:30 Prednisone (Prednisone) 5 mg DAILY PO Last administered on 01/13/19 09:51; Admin Dose 5 MG; Start 01/12/19 at 11:30 Sertraline HCl (Zoloft) 25 mg DAILY PO Last administered on 01/13/19 09:51; Admin Dose 25 MG; Start 01/13/19 at 09:00 Hydralazine HCl (Apresoline) 10 mg Q4H PRN IV SBP more than 150 mm Hg Last administered on 01/12/19 11:32; Admin Dose 10 MG; Start 01/12/19 at 11:30 Heparin Sodium (Porcine) (Heparin (1000 Units/ml)) 4,000 unit AFTER DIALYSIS CATHETER ; Start 01/12/19 at 11:30 Albumin Human 100 ml @ 100 mls/hr WITH DIALYSIS PRN IV SBP <90 DURING DIALYSIS; Start 01/12/19 at 11:30 Sodium Chloride (NS) -To prime the dialy... DIRECTED FOR HD PRN IV HD; Start 01/12/19 at 11:30 Ondansetron HCl (Zofran Inj) 4 mg Q4H PRN IV NAUSEA AND/OR VOMITING Last administered on 01/12/19 23:31; Admin Dose 4 MG; Start 01/12/19 at 12:00 Morphine Sulfate (morphine) 1 mg Q4H PRN IV SEVERE PAIN LEVEL 7-10 Last administered on 01/13/19 12:46; Admin Dose 1 MG; Start 01/12/19 at 13:00 Metoclopramide HCl (Reglan) 10 mg Q6 IV Last administered on 01/13/19at 12:46; Admin Dose 10 MG; Start 01/12/19 at 13:00 Acetaminophen (Tylenol Tab) 650 mg Q6H PRN PO MILD PAIN(1-3)OR ELEVATED TEMP Last administered on 01/13/19at 13:25; Admin Dose 650 MG; Start 01/12/19 at 13:00 Hydralazine HCl (Apresoline) 20 mg Q6H PRN IV sbp >170mmhg; Start 01/12/19 at 14:00 Labetalol HCl (Labetalol) 20 mg Q6H PRN IV to keep SBP below 170; Start 01/12/19 at 16:00 LI GIL MD Jan 13, 2019 15:20
--- NOTE | 2019-01-13 16:17 | CONS ---
Assessment/Plan Assessment/Plan Assessment/Plan (Daily) Assessment/Plan (Daily) 1. acute fluid overload 2 acute hyperkalemia 3. Hypertensive emergency 4. ESRD on HD 4 times a week 5. H/o HTN 6. h/o HL 7. H/o Lupus Plan: s/p HD yesterday 2.3 L removed, S/p HD today 2.4 L removed, Nifedipine XL 60mg BID, IV hydralazine prn Continue other home BP meds will follow up Consultation Date/Type/Reason Admit Date/Time Jan 12, 2019 at 08:34 Initial Consult Date Type of Consult NEPHROLOGY Reason for Consultation acute fluid overload, Hyperkalemia, HTN emergency Requesting Provider: JES ANDREWS Date/Time of Note DATE: 01/13/19 TIME: 16:17 Exam/Review of Systems Exam Vitals Vital Signs Date Temp Pulse Resp B/P (MAP) Pulse Ox O2 O2 Flow FiO2 Time Delivery Rate 01/13/19 97.5 80 20 108/70 99 Room Air 13:54 (83) 01/13/19 2.0 10:49 Intake and Output 01/12/19 01/12/19 01/13/19 1515:00 23:00 07:00 IntakeIntake Total 546 ml 286 ml 100 ml OutputOutput Total 580 ml 5900 ml BalanceBalance -34 ml -5614 ml 100 ml Exam Constitutional: distress Respiratory: congested cough, crackles/rales, diminished breath sounds Cardiovascular: regular rate and rhythm, nl pulses Gastrointestinal: soft, non-tender Musculoskeletal: muscle weakness, swelling Extremities: normal pulses Neurological: COMPLIANCE MANAGER II-XII intact, nl mental status Skin: nl turgor Lymph: nl lymph nodes Results Result Diagram: 01/13/19 0454 01/13/19 0454 Results 24hrs Laboratory Tests Test 01/12/19 18:31 01/13/19 04:54 01/13/19 08:32 Creatine Kinase 27 Creatine Kinase Index 1.2 Creatinine Kinase MB (Mass) 0.32 Troponin I 0.032 White Blood Count 4.7 #L Red Blood Count 2.74 L Hemoglobin 8.7 L Hematocrit 28.3 L Mean Corpuscular Volume 103.3 H Mean Corpuscular Hemoglobin 31.8 Mean Corpuscular Hemoglobin Concent 30.7 L Red Cell Distribution Width 16.7 H Platelet Count 108 L Mean Platelet Volume 11.5 H Immature Granulocytes % 0.200 Neutrophils % 67.4 Lymphocytes % 18.1 Monocytes % 13.5 H Eosinophils % 0.6 Basophils % 0.2 Nucleated Red Blood Cells % 0.0 Immature Granulocytes # 0.010 Neutrophils # 3.1 Lymphocytes # 0.8 Monocytes # 0.6 Eosinophils # 0.0 Basophils # 0.0 Nucleated Red Blood Cells # 0.0 Sodium Level 135 Potassium Level 4.7 Chloride Level 95 #L Carbon Dioxide Level 30 Anion Gap 10 Blood Urea Nitrogen 12 Creatinine 2.98 H Est Glomerular Filtrat Rate mL/min 18 L Glucose Level 67 L Calcium Level 9.4 Phosphorus Level 5.2 H Magnesium Level 1.8 Bedside Glucose 108 Medications Medication Current Medications Nitroglycerin (Nitroglycerin (Sl Tab) 0.4 Mg) 1 tab Q5M UP TO 3 DOSES PRN SL .CHEST PAIN Last administered on 01/12/19 07:47; Admin Dose 1 TAB; Start 01/12/19 at 07:00 Aspirin (Halfprin) 81 mg DAILY PO Last administered on 01/13/19 09:52; Admin Dose 81 MG; Start 01/12/19 at 11:30 Carvedilol (Coreg) 50 mg Q12 PO Last administered on 01/13/19 12:47; Admin Dose 50 MG; Start 01/12/19 at 11:30 Clonidine (Catapres) 0.1 mg TID PO Last administered on 01/13/19 13:18; Admin Dose 0.1 MG; Start 01/12/19 at 13:00 Diphenhydramine HCl (Benadryl) 25 mg Q6 PRN PO ITCHING/RASH Last administered on 01/13/19 14:45; Admin Dose 25 MG; Start 01/12/19 at 11:30 Hydroxychloroquine Sulfate (Plaquenil) 200 mg DAILY PO Last administered on 01/13/19 09:53; Admin Dose 200 MG; Start 01/12/19 at 11:30 Hydroxyzine HCl (Atarax) 50 mg Q8H PRN PO ITCHING; Start 01/12/19 at 11:30 Lorazepam (Ativan) 1 mg TID PRN PO ANXIETY Last administered on 01/13/19 07:03; Admin Dose 1 MG; Start 01/12/19 at 11:30 Mycophenolate Mofetil (Cellcept) 1,000 mg BID PO Last administered on 01/13/19 09:52; Admin Dose 1,000 MG; Start 01/12/19 at 11:30 Nifedipine (Procardia Xl) 60 mg BID PO Last administered on 01/13/19 12:47; Admin Dose 60 MG; Start 01/12/19 at 11:30 Pantoprazole (Protonix Tab) 40 mg DAILY PO Last administered on 01/13/19 09:51; Admin Dose 40 MG; Start 01/12/19 at 11:30 Prednisone (Prednisone) 5 mg DAILY PO Last administered on 01/13/19 09:51; Admin Dose 5 MG; Start 01/12/19 at 11:30 Sertraline HCl (Zoloft) 25 mg DAILY PO Last administered on 01/13/19 09:51; Admin Dose 25 MG; Start 01/13/19 at 09:00 Hydralazine HCl (Apresoline) 10 mg Q4H PRN IV SBP more than 150 mm Hg Last administered on 01/12/19 11:32; Admin Dose 10 MG; Start 01/12/19 at 11:30 Heparin Sodium (Porcine) (Heparin (1000 Units/ml)) 4,000 unit AFTER DIALYSIS CATHETER ; Start 01/12/19 at 11:30 Albumin Human 100 ml @ 100 mls/hr WITH DIALYSIS PRN IV SBP <90 DURING DIALYSIS ; Start 01/12/19 at 11:30 Sodium Chloride (NS) -To prime the dialy... DIRECTED FOR HD PRN IV HD; Start 01/12/19 at 11:30 Ondansetron HCl (Zofran Inj) 4 mg Q4H PRN IV NAUSEA AND/OR VOMITING Last ad ministered on 01/12/19 23:31; Admin Dose 4 MG; Start 01/12/19 at 12:00 Morphine Sulfate (morphine) 1 mg Q4H PRN IV SEVERE PAIN LEVEL 7-10 Last administered on 01/13/19 12:46; Admin Dose 1 MG; Start 01/12/19 at 13:00 Metoclopramide HCl (Reglan) 10 mg Q6 IV Last administered on 01/13/19 12:46; Admin Dose 10 MG; Start 01/12/19 at 13:00 Acetaminophen (Tylenol Tab) 650 mg Q6H PRN PO MILD PAIN(1-3)OR ELEVATED TEMP Last administered on 01/13/19at 13:25; Admin Dose 650 MG; Start 01/12/19 at 13:00 Hydralazine HCl (Apresoline) 20 mg Q6H PRN IV sbp >170mmhg; Start 01/12/19 at 14:00 Labetalol HCl (Labetalol) 20 mg Q6H PRN IV to keep SBP below 170; Start 01/12/19 at 16:00 ARTURO AMADOR MD Jan 13, 2019 16:17
--- NOTE | 2019-01-13 17:16 | HP ---
DATE OF ADMISSION: 01/12/2019 PRESENTING COMPLAINT: Chest pain, headache and nausea and vomiting. HISTORY OF PRESENT ILLNESS: This is a 33-year-old female who is well known to our service from multi ple prior hospitalizations, who was recently discharged from 12/25/2018. She has a history of SLE an d has had end-stage renal failure as a complication of that. She has been on hemodialysis. After he r last hospitalization because she kept going into recurrent fluid overload, her dialysis sessions we re increased from 3 times a week to 4 times a week. She comes in today reporting that she has been h aving headache, nausea and vomiting for the last week. She was supposed to have hemodialysis yesterd ay, however, on prior reports she did not have it. She is also complaining about chest discomfort as well as shortness of breath and she is concerned that again she will be fluid overloaded. She is be ing admitted because also she had severely elevated blood pressures to the 200 systolic and 110 diast olic. She has had no fever, there is no cough, there is no focal neurologic deficit, there is no pas sing out episodes. She does not have known coronary artery disease. [facility] by cardiology, but even though she has never had a nuclear medicine stress test, s he has had multiple serial echos that are not suggestive of ischemic heart disease and she has had tr oponins that have been trended multiple times without evidence of troponin elevation. In fact, her l ast 2D echocardiogram was just in October 2018 and it showed a chronic small pericardial effusion wit h normal left ventricular size, wall thickness and systolic function. She does have a small chronic pericardial effusion that has not changed in size in months. PAST MEDICAL HISTORY: 1. Systemic lupus erythematosus. 2. 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 Hemodialysis now 4 days a week. 3. Chronic hypertension. 4. Possible noncompliance with therapy? 5. Chronic hypertension. 6. Chronic depression. 7. Chronic cachexia and debility. PAST SURGICAL HISTORY: She has had in the past. ALLERGIES: SHE REPORTS ALLERGIES TO HYDROCODONE, ____. FAMILY HISTORY: Noncontributory. REVIEW OF SYSTEMS: A 12-point review of system was done and pertinent findings are as noted in the H PI. PHYSICAL EXAMINATION: VITAL SIGNS: At the time of my assessment. Vital signs were as follows: Temperature 98.1, pulse 96 , respirations 23, blood pressure 180/ 112, saturations 100%. She is on oxygen via nasal cannula at 2 liters per minute. GENERAL: She is chronically ill, looking frail with de facies likely from chronic steroid use and a chronic facial malar rash. She is currently alert and oriented. She has been having a lot of naus ea and vomiting and she is in mild distress from this. HEENT: Head is normocephalic without evidence of trauma. Pupils equal and reactive. Mucous membran es are moist. Posterior pharynx is clear of erythema and exudate. NECK: Supple, nontender. CHEST: Diminished breath sounds bilaterally. CARDIOVASCULAR: Tachycardia without murmur. ABDOMEN: Soft, does not seem overtly tender with normoactive bowel sounds. EXTREMITIES: Please review chronic muscle wasting, but no edema. SKIN: Other than the findings as noted above, no other new findings. PSYCHIATRIC: Currently, she is just ill looking, but she seems comfortable and cooperative with exam . LABORATORY VALUES: She does have hyperkalemia of 5.2, creatinine is 3.7, troponin x2 so far has been negative. She has a pancytopenia with megalocytosis. Again, chronic for the patient. Coag profile was unremarkable. Urinalysis was not done. IMAGING: A chest x-ray done in the emergency room today on the day of admission showed mild cardiome ravin, pulmonary vascular congestion. ASSESSMENT: A 33-year-old female known to us from recurrent admission with a history of end stage re nal disease as a complication from lupus, on hemodialysis therapy now 4 days a week, who presents to us after seemingly have missed one dialysis session due to nausea and concern for chest discomfort as well as shortness of breath. She is managed as follows: 1. Hypertensive emergency: The patient is being admitted to the intensive care unit on a nicardipin e drip. 2. Chest pain with shortness of breath. No evidence of pulmonary congestion on x-ray. 3. The patient missed dialysis and fluid overload. Coronary artery disease is highly unlikely on patient. She, however, had 3 negative cardiac enzymes. 4. End stage renal disease on dialysis now 4 days a week, nephrology consultation for urgent dialysi s has been sought with Dr. Ming Dean, her outpatient jewel waxer. 5. History of lupus. Continue home steroid, mycophenolate and Plaquenil. 6. Chronic depression. Continue her on Zoloft. 7. Chronic debility and recurrent hospitalizations, concerning possible noncompliance. PLAN: At this time, as mentioned earlier I discussed ICU care. She will need dialysis which will ho pefully help with her blood pressure. The plan will be to reassess after her blood pressure is much better as she is being dialyzed and see how she does. She may need a repeat chest x-ray in followup to ensure that there has been clearing of her vascular congestion. Further interventions will likely depend on her clinical course. The patient always seems to do well after she was admitted and dialy zed. We will have to see how she does this time. ____ possible of family conference with the social services analyst review to see if we can possibly discuss ways to reduce frequent hospitalization. Otherwise, further interventions will depend on her clinical course. Plan of care has been discussed in detail . Questions have been answered. Dictated By: FARHAD LEZAMA MD BA/NTS Conf#: [id number] DID#: [id number] CC: TERRI BISHOP MD;*EndCC*
[2019-01-14] VITALS (12 sets, daily range): BP systolic 93–110; BP diastolic 56–70; PULSE 68–85; RESP 18–19
[2019-01-14] MEDS: DIPHENHYDRAMINE 25 MG CAP PO PRN ×2 (01:53→19:31)
[2019-01-14] MEDS: morphine 2 MG INJ IV PRN ×5 (01:53→23:36)
[2019-01-14] MEDS: METOCLOPRAMIDE 10 MG INJ IV SCH ×3 (05:14→17:45)
--- NOTE | 2019-01-14 08:55 | CONS ---
Assessment/Plan Assessment/Plan Assessment/Plan (Daily) 1. acute fluid overload 2 acute hyperkalemia 3. Hypertensive emergency 4. ESRD on HD 4 times a week 5. H/o HTN 6. h/o HL 7. H/o Lupus Plan: s/p HD 2 days in a row, Bp stable, will plan for HD tomorrow ,- pt regular schedule for HD is TTS at [facility]( she sometime gets extra Hd on Tuesday ) Nifedipine XL 60mg BID, IV hydralazine prn Continue other home BP meds will follow up Consultation Date/Type/Reason Admit Date/Time Jan 12, 2019 at 08:34 Initial Consult Date Type of Consult NEPHROLOGY Requesting Provider: JES ANDREWS Date/Time of Note DATE: 01/14/19 TIME: 08:55 Exam/Review of Systems Exam Vitals Vital Signs Date Temp Pulse Resp B/P (MAP) Pulse Ox O2 O2 Flow FiO2 Time Delivery Rate 01/14/19 71 08:17 01/14/19 98.0 18 107/61 95 07:44 (76) 01/13/19 Room Air 16:34 01/13/19 2.0 10:49 Intake and Output 01/13/19 01/13/19 01/14/19 1515:00 23:00 07:00 IntakeIntake Total 200 ml 240 ml OutputOutput Total 5800 ml BalanceBalance -5600 ml 240 ml Exam Constitutional: distress Respiratory: congested cough, crackles/rales, diminished breath sounds Cardiovascular: regular rate and rhythm, nl pulses Gastrointestinal: soft, non-tender Musculoskeletal: muscle weakness, swelling Extremities: normal pulses 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, nl mental status Skin: nl turgor Lymph: nl lymph nodes Results Result Diagram: 01/14/19 0545 01/14/19 0545 Results 24hrs Laboratory Tests Test 01/14/19 05:45 White Blood Count 3.1 #L Red Blood Count 2.90 L Hemoglobin 8.9 L Hematocrit 30.3 L Mean Corpuscular Volume 104.5 H Mean Corpuscular Hemoglobin 30.7 Mean Corpuscular Hemoglobin Concent 29.4 L Red Cell Distribution Width 16.5 H Platelet Count 125 L Mean Platelet Volume 11.0 H Immature Granulocytes % 0.300 Neutrophils % 39.1 Lymphocytes % 39.4 Monocytes % 19.9 H Eosinophils % 1.0 Basophils % 0.3 Nucleated Red Blood Cells % 0.0 Immature Granulocytes # 0.010 Neutrophils # 1.2 L Lymphocytes # 1.2 Monocytes # 0.6 Eosinophils # 0.0 Basophils # 0.0 Nucleated Red Blood Cells # 0.0 Sodium Level 138 Potassium Level 5.0 Chloride Level 98 Carbon Dioxide Level 29 Anion Gap 11 Blood Urea Nitrogen 19 Creatinine 3.64 H Est Glomerular Filtrat Rate mL/min 14 L Glucose Level 82 Calcium Level 9.4 Medications Medication Current Medications Nitroglycerin (Nitroglycerin (Sl Tab) 0.4 Mg) 1 tab Q5M UP TO 3 DOSES PRN SL .CHEST PAIN Last administered on 01/12/19 07:47; Admin Dose 1 TAB; Start 01/12/19 at 07:00 Aspirin (Halfprin) 81 mg DAILY PO Last administered on 01/13/19 09:52; Admin Dose 81 MG; Start 01/12/19 at 11:30 Carvedilol (Coreg) 50 mg Q12 PO Last administered on 01/13/19 20:07; Admin Dose 50 MG; Start 01/12/19 at 11:30 Clonidine (Catapres) 0.1 mg TID PO Last administered on 01/13/19 20:07; Admin Dose 0.1 MG; Start 01/12/19 at 13:00 Diphenhydramine HCl (Benadryl) 25 mg Q6 PRN PO ITCHING/RASH Last administered on 01/14/19 01:53; Admin Dose 25 MG; Start 01/12/19 at 11:30 Hydroxychloroquine Sulfate (Plaquenil) 200 mg DAILY PO Last administered on 01/13/19 09:53; Admin Dose 200 MG; Start 01/12/19 at 11:30 Hydroxyzine HCl (Atarax) 50 mg Q8H PRN PO ITCHING; Start 01/12/19 at 11:30 Lorazepam (Ativan) 1 mg TID PRN PO ANXIETY Last administered on 01/13/19 07 :03; Admin Dose 1 MG; Start 01/12/19 at 11:30 Mycophenolate Mofetil (Cellcept) 1,000 mg BID PO Last administered on 01/13/19 20:06; Admin Dose 1,000 MG; Start 01/12/19 at 11:30 Nifedipine (Procardia Xl) 60 mg BID PO Last administered on 01/13/19 20:07; Admin Dose 60 MG; Start 01/12/19 at 11:30 Pantoprazole (Protonix Tab) 40 mg DAILY PO Last administered on 01/13/19 09:51; Admin Dose 40 MG; Start 01/12/19 at 11:30 Prednisone (Prednisone) 5 mg DAILY PO Last administered on 01/13/19 09:51; Admin Dose 5 MG; Start 01/12/19 at 11:30 Sertraline HCl (Zoloft) 25 mg DAILY PO Last administered on 01/13/19 09:51; Admin Dose 25 MG; Start 01/13/19 at 09:00 Hydralazine HCl (Apresoline) 10 mg Q4H PRN IV SBP more than 150 mm Hg Last administered on 01/12/19 11:32; Admin Dose 10 MG; Start 01/12/19 at 11:30 Heparin Sodium (Porcine) (Heparin (1000 Units/ml)) 4,000 unit AFTER DIALYSIS CATHETER ; Start 01/12/19 at 11:30 Albumin Human 100 ml @ 100 mls/hr WITH DIALYSIS PRN IV SBP <90 DURING DI ALYSIS; Start 01/12/19 at 11:30 Sodium Chloride (NS) -To prime the dialy... DIRECTED FOR HD PRN IV HD; Start 01/12/19 at 11:30 Ondansetron HCl (Zofran Inj) 4 mg Q4H PRN IV NAUSEA AND/OR VOMITING Last administered on 01/12/19 23:31; Admin Dose 4 MG; Start 01/12/19 at 12:00 Morphine Sulfate (morphine) 1 mg Q4H PRN IV SEVERE PAIN LEVEL 7-10 Last administered on 01/14/19 05:41; Admin Dose 1 MG; Start 01/12/19 at 13:00 Metoclopramide HCl (Reglan) 10 mg Q6 IV Last administered on 01/14/19 05:14; Admin Dose 10 MG; Start 01/12/19 at 13:00 Acetaminophen (Tylenol Tab) 650 mg Q6H PRN PO MILD PAIN(1-3)OR ELEVATED TEMP Last administered on 01/13/19 13:25; Admin Dose 650 MG; Start 01/12/19 at 13:00 Hydralazine HCl (Apresoline) 20 mg Q6H PRN IV sbp >170mmhg; Start 01/12/19 at 14:00 Labetalol HCl (Labetalol) 20 mg Q6H PRN IV to keep SBP below 170; Start 01/12/19 at 16:00 ARTURO AMADOR MD Jan 14, 2019 08:55
[2019-01-14] MEDS: HYDROXYCHLOROQUINE 200 MG TAB PO SCH (09:08)
[2019-01-14] MEDS: ASPIRIN (EC) 81 MG TAB PO SCH (09:08)
[2019-01-14] MEDS: predniSONE 5 MG TAB PO SCH (09:08)
[2019-01-14] MEDS: SERTRALINE 50 MG TAB PO SCH (09:09)
[2019-01-14] MEDS: PANTOPRAZOLE (EC) 40 MG TAB PO SCH (09:09)
[2019-01-14] MEDS: NIFEdipine (XL) 60 MG TAB PO SCH ×2 (09:11→22:01)
[2019-01-14] MEDS: MYCOPHENOLATE 250 MG CAP PO SCH ×2 (09:27→22:00)
[2019-01-14] MEDS: LORAZEPAM 1 MG TAB PO PRN (14:23)
[2019-01-14] MEDS: ACETAMINOPHEN 325 MG TAB PO PRN (14:27)
--- NOTE | 2019-01-14 16:09 | PN ---
Date/Time of Note Date/Time of Note DATE: 01/14/19 TIME: 16:07 Assessment/Plan VTE Prophylaxis Risk score (from Nsg)>0 risk: 2 SCD applied (from Nsg): Yes Pharmacological prophylaxis: heparin Lines/Catheters IV Catheter Type (from Nrsg): Saline Lock Assessment/Plan Assessment/Plan 33 yo woman with ESRD and SLE who presents with acute respiratory failure from pulmonary edema in setting of hypertensive emergency #Hypertensive emergency - resolved - Continue home anti-hypertensives - Dialysis per renal. #Acute respiratory failure from pulmonary edema: - Now on nasal cannula - dialysis #ESRD: #Hyperkalemia - Continue HD per Dr Dean #SLE: - Continue prednisone 5, mycophenylate 1000 BID and plaquenil thrice weekly DVT: heparin GI: None Dispo: Per discussion with Dr. Dean, plan to D/C tomorrow after dialysis. Result Diagram: 01/14/19 0545 01/14/19 0545 Subjective 24 Hr Interval Summary Free Text/Dictation No acute overnight events. Feeling well, asking to go home. Exam/Review of Systems Exam Vitals Vital Signs Date Temp Pulse Resp B/P (MAP) Pulse Ox O2 O2 Flow FiO2 Time Delivery Rate 01/14/19 98.4 81 19 108/65 97 15:12 (79) 01/13/19 Room Air 16:34 01/13/19 2.0 10:49 Intake and Output 01/13/19 01/13/19 01/14/19 1515:00 23:00 07:00 IntakeIntake Total 200 ml 240 ml OutputOutput Total 5800 ml BalanceBalance -5600 ml 240 ml Exam Gen: Frail appearing thin woman well appearing Eyes: PERRL, no icterus HEENT: Moist mucous membranes, splotchy erythema on face. Neck: No JVD. No lymphadenopathy. Chest: L chest permacath in place. Card: Regular rate and rhythm, no murmurs Pulm: Clear to auscultation bilaterally. Abd: Soft, nontender, nondistended. Ext: LUE AV fistula with bruit. Skin: warm, dry, well perfused. Results Results 24hrs Laboratory Tests Test 01/14/19 05:45 White Blood Count 3.1 #L Red Blood Count 2.90 L Hemoglobin 8.9 L Hematocrit 30.3 L Mean Corpuscular Volume 104.5 H Mean Corpuscular Hemoglobin 30.7 Mean Corpuscular Hemoglobin Concent 29.4 L Red Cell Distribution Width 16.5 H Platelet Count 125 L Mean Platelet Volume 11.0 H Immature Granulocytes % 0.300 Neutrophils % 39.1 Lymphocytes % 39.4 Monocytes % 19.9 H Eosinophils % 1.0 Basophils % 0.3 Nucleated Red Blood Cells % 0.0 Immature Granulocytes # 0.010 Neutrophils # 1.2 L Lymphocytes # 1.2 Monocytes # 0.6 Eosinophils # 0.0 Basophils # 0.0 Nucleated Red Blood Cells # 0.0 Sodium Level 138 Potassium Level 5.0 Chloride Level 98 Carbon Dioxide Level 29 Anion Gap 11 Blood Urea Nitrogen 19 Creatinine 3.64 H Est Glomerular Filtrat Rate mL/min 14 L Glucose Level 82 Calcium Level 9.4 Medications Medication Current Medications Nitroglycerin (Nitroglycerin (Sl Tab) 0.4 Mg) 1 tab Q5M UP TO 3 DOSES PRN SL .CHEST PAIN Last administered on 01/12/19 07:47; Admin Dose 1 TAB; Start 01/12/19 at 07:00 Aspirin (Halfprin) 81 mg DAILY PO Last administered on 01/14/19 09:08; Admin Dose 81 MG; Start 01/12/19 at 11:30 Carvedilol (Coreg) 50 mg Q12 PO Last administered on 01/13/19 20:07; Admin Dose 50 MG; Start 01/12/19 at 11:30 Clonidine (Catapres) 0.1 mg TID PO Last administered on 01/14/19 12:15; Admin Dose 0.1 MG; Start 01/12/19 at 13:00 Diphenhydramine HCl (Benadryl) 25 mg Q6 PRN PO ITCHING/RASH Last administered on 01/14/19 01:53; Admin Dose 25 MG; Start 01/12/19 at 11:30 Hydroxychloroquine Sulfate (Plaquenil) 200 mg DAILY PO Last administered on 01/14/19 09:08; Admin Dose 200 MG; Start 01/12/19 at 11:30 Hydroxyzine HCl (Atarax) 50 mg Q8H PRN PO ITCHING; Start 01/12/19 at 11:30 Lorazepam (Ativan) 1 mg TID PRN PO ANXIETY Last administered on 01/14/19 14:23; Admin Dose 1 MG; Start 01/12/19 at 11:30 Mycophenolate Mofetil (Cellcept) 1,000 mg BID PO Last administered on 01/14/19 09:27; Admin Dose 1,000 MG; Start 01/12/19 at 11:30 Nifedipine (Procardia Xl) 60 mg BID PO Last administered on 01/14/19 09:11; Admin Dose 60 MG; Start 01/12/19 at 11:30 Pantoprazole (Protonix Tab) 40 mg DAILY PO Last administered on 01/14/19 09:09; Admin Dose 40 MG; Start 01/12/19 at 11:30 Prednisone (Prednisone) 5 mg DAILY PO Last administered on 01/14/19 09:08; Admin Dose 5 MG; Start 01/12/19 at 11:30 Sertraline HCl (Zoloft) 25 mg DAILY PO Last administered on 01/14/19 09:09; Admin Dose 25 MG; Start 01/13/19 at 09:00 Hydralazine HCl (Apresoline) 10 mg Q4H PRN IV SBP more than 150 mm Hg Last administered on 01/12/19 11:32; Admin Dose 10 MG; Start 01/12/19 at 11:30 Heparin Sodium (Porcine) (Heparin (1000 Units/ml)) 4,000 unit AFTER DIALYSIS CATHETER ; Start 01/12/19 at 11:30 Albumin Human 100 ml @ 100 mls/hr WITH DIALYSIS PRN IV SBP <90 DURING DIALYSIS; Start 01/12/19 at 11:30 Sodium Chloride (NS) -To prime the dialy... DIRECTED FOR HD PRN IV HD; Start 01/12/19 at 11:30 Ondansetron HCl (Zofran Inj) 4 mg Q4H PRN IV NAUSEA AND/OR VOMITING Last administered on 01/12/19 23:31; Admin Dose 4 MG; Start 01/12/19 at 12:00 Morphine Sulfate (morphine) 1 mg Q4H PRN IV SEVERE PAIN LEVEL 7-10 Last administered on 01/14/19 10:48; Admin Dose 1 MG; Start 01/12/19 at 13:00 Metoclopramide HCl (Reglan) 10 mg Q6 IV Last administered on 01/14/19 12:13; Admin Dose 10 MG; Start 01/12/19 at 13:00 Acetaminophen (Tylenol Tab) 650 mg Q6H PRN PO MILD PAIN(1-3)OR ELEVATED TEMP Last administered on 01/14/19at 14:27; Admin Dose 650 MG; Start 01/12/19 at 13:00 Hydralazine HCl (Apresoline) 20 mg Q6H PRN IV sbp >170mmhg; Start 01/12/19 at 14:00 Labetalol HCl (Labetalol) 20 mg Q6H PRN IV to keep SBP below 170; Start 01/12/19 at 16:00 LI GIL MD Jan 14, 2019 16:09
[2019-01-15] VITALS (21 sets, daily range): BP systolic 108–125; BP diastolic 68–83; PULSE 71–83; RESP 16–19
[2019-01-15] MEDS: METOCLOPRAMIDE 10 MG INJ IV SCH ×3 (00:52→11:35)
[2019-01-15] MEDS: DIPHENHYDRAMINE 25 MG CAP PO PRN (01:26)
[2019-01-15] MEDS: morphine 2 MG INJ IV PRN ×3 (05:52→14:34)
--- NOTE | 2019-01-15 08:19 | HP ---
DATE OF ADMISSION: 01/12/2019 PRESENTING COMPLAINT: Chest pain. HISTORY OF PRESENTING COMPLAINT: Cynthia is well known to our service from multiple admissions. She h as a history of lupus with end-stage renal disease secondary to lupus nephritis. She has been on hem odialysis that has recently been increased from 3 days a week to 4 days a week. Now, she gets dialys is Tuesdays, Wednesdays, and Saturdays. Her last dialysis however was on Tuesday. She c kerri to the emergency room today because of chest pain and shortness of breath. She also complains of feeling nausea and she claims that she was ____ evaluated again and so she came to the ER. In the e mergency room, she was found to be severely hypertensive with blood pressures in the 200s systolic an d 110 diastolic and is being admitted to intensive care unit on the drip. PAST MEDICAL HISTORY: 1. End-stage renal disease on hemodialysis. 2. Chronic lupus and lupus nephritis. 3. History of repeated respiratory failure from pulmonary edema. 4. Chronic hypertension. 5. Chronic debility. 6. History of recurrent hospitalization. PAST SURGICAL HISTORY: Includes dialysis access placement and in the past. ALLERGIES: HYDROCODONE. HOME MEDICATIONS: Have been reviewed and reconciled. REVIEW OF SYSTEMS: Twelve-point review of system was done. Pertinent findings as noted in the HPI. The patient also has chronic anemia and end-stage renal disease. PHYSICAL EXAMINATION: VITAL SIGNS: Earlier blood pressures are in the 190/113, heart rate 89, respiratory rate 12, saturat ions 98% via nasal cannula on 2 liters per minute. GENERAL: Asthenic female, clinically well-nourished, currently mildly anxious, otherwise in no distr ess. HEENT: Head is normocephalic. There was no trauma. Pupils are equally reactive. Possible mild scl eral jaundice. NECK: Supple. CHEST: Diminished breath sounds, slightly tachypneic. CARDIOVASCULAR: Heart sounds, S1 and S2. No added sounds or murmurs. ABDOMEN: Soft, nontender, nondistended with normoactive bowel sounds. EXTREMITIES: She has chronic muscle wasting but no edema. NEUROLOGIC: She had no gross focal deficit. SKIN: She does have malar rash in face and cushingoid features and chronic steroid use. LABORATORY VALUES: Today, she is pancytopenic with a white count of 2.9. Hemoglobin was 8.7 and jazz telet count of 160. She is hyperkalemic with potassium of 5.2, creatinine is 3.7. Of note that her pancytopenia is chronic actually. Troponin negative x1. IMAGING: Chest x-ray today showed mild cardiomegaly with pulmonary vascular congestion. She had a C T scan last month; however, it appears ____ vein in the lungs, right pleural effusion at that time an d chronic small pericardial effusion. Of note, ____. The last evaluation was in 09/2018. DIAGNOSTIC DATA: EKG has no concern for acute ischemic injury. ASSESSMENT: A 33-year-old Asthenic female with a history of end-stage renal disease secondary to ___ _ and hemodialysis 4 days a week, pulmonary edema, admitted for chest pain, shortness of breath and n ausea. She is currently managed as follows: 1. Hypertensive emergency and ____. 2. Hyperkalemia. She was supposed to be dialyzed yesterday. This could be contributory. 3. Respiratory failure, chronic. 4. ____ on hemodialysis. 5. Chronic smoker. 6. Pericardial effusion with last 2D echo done was 10/2018 which did not show increase in size. 7. ____ antihypertensives and considering chronic renal failure, try to wean that as tolerated. She does not have ____ and thus, the patient has been having ____ at this time, but we will complete rul e out. No need for repeat echocardiogram for now. Nephrology consultation has been obtained for in- house for diuresis and further interventions and will depend on her clinical course. We will be prov patricia supportive care for nausea symptoms. Dictated By: FARHAD LEZAMA MD BA/NTS Conf#: [id number] DID#: [id number] CC: TERRI BISHOP MD;*EndCC*
[2019-01-15] MEDS: ASPIRIN (EC) 81 MG TAB PO SCH (08:38)
[2019-01-15] MEDS: MYCOPHENOLATE 250 MG CAP PO SCH (08:38)
[2019-01-15] MEDS: predniSONE 5 MG TAB PO SCH (08:38)
[2019-01-15] MEDS: SERTRALINE 50 MG TAB PO SCH (08:39)
[2019-01-15] MEDS: PANTOPRAZOLE (EC) 40 MG TAB PO SCH (08:39)
[2019-01-15] MEDS: HYDROXYCHLOROQUINE 200 MG TAB PO SCH (08:39)
[2019-01-15] MEDS: NIFEdipine (XL) 60 MG TAB PO SCH (09:00)
[2019-01-15] MEDS ORDERED: ASPI-1046 PO (13:30)
--- NOTE | 2019-01-15 13:31 | PDOCDIS ---
Discharge Instructions DIAGNOSIS Discharge Diagnosis Pulmonary edema Hypertension CONDITION [id number] Patient Condition: [id number] Fair HOME CARE INSTRUCTIONS: [id number] Diet Instructions: [id number] Reduced Sodium ACTIVITY: [id number] Activity Restrictions: [id number] No Restrictions FOLLOW UP/APPOINTMENTS Follow-up Plan 1. Take all medications as prescribed 2. Continue outpatient dialysis as scheduled 3. For worsening shortness of breath or chest pain at rest, return to the emergency room LI GIL MD Jan 15, 2019 13:31
--- NOTE | 2019-01-15 16:55 | DS ---
Date/Time of Note Date/Time of Note DATE: 01/15/19 TIME: 16:47 Discharge Summary Admission/Discharge Info Admit Date/Time Jan 12, 2019 at 08:34 Discharge Date/Time Jan 15, 2019 at 16:10 Discharge Diagnosis Pulmonary edema Hypertension Patient Condition: Fair Consults Dr. Dean, nephrology Hx of Present Illness HISTORY OF PRESENTING COMPLAINT: Cynthia is well known to our service from multiple admissions. She has a history of lupus with end-stage renal disease secondary to lupus nephritis. She has been on hemodialysis that has recently been increased from 3 days a week to 4 days a week. Now, she gets dialysis Tuesdays, Wednesdays, and Saturdays. Her last dialysis however was on Tuesday. She came to the emergency room today because of chest pain and shortness of breath. She also complains of feeling nausea and she claims that she was evaluated again and so she came to the ER. In the emergency room, she was found to be severely hypertensive with blood pressures in the 200s systolic and 110 diastolic and is being admitted to intensive care unit on the drip. PAST MEDICAL HISTORY: 1. End-stage renal disease on hemodialysis. 2. Chronic lupus and lupus nephritis. 3. History of repeated respiratory failure from pulmonary edema. 4. Chronic hypertension. 5. Chronic debility. 6. History of recurrent hospitalization. PAST SURGICAL HISTORY: Includes dialysis access placement and in the past. ALLERGIES: HYDROCODONE. HOME MEDICATIONS: Have been reviewed and reconciled. REVIEW OF SYSTEMS: Twelve-point review of system was done. Pertinent findings as noted in the HPI. The patient also has chronic anemia and end-stage renal disease. Hospital Course She initially required ICU admission and was on BiPAP for a short time. After dialysis she was weaned off onto room air. She required three dialysis sessions total. Afterwards she was feeling well. Home Meds Active Scripts Aspirin* (Aspirin* (EC)) 81 Mg Tablet., 81 MG PO DAILY, #30 TAB 2 Refills otc Prov:LI GIL MD 01/15/19 Clonidine Hcl* (Catapres*) 0.1 Mg Tablet, 0.1 MG PO TID, #90 TAB Prov:VALERIA PETER NP 12/14/18 Carvedilol* (Carvedilol*) 25 Mg Tablet, 50 MG PO Q12, #60 TAB Prov:FARHAD LEZAMA. 11/23/18 Diphenhydramine Hcl* (Benadryl*) 25 Mg Cap, 25 MG PO Q6 PRN for ITCHING/RASH, #30 TAB Prov:FADY ADAM 11/16/18 Nifedipine (Procardia Xl) 60 Mg Tab.er.24, 60 MG PO BID for 30 Days, #60 TAB 2 Refills Prov:FARHAD LEZAMA. 10/30/18 Sertraline Hcl* (Sertraline Hcl*) 25 Mg Tablet, 25 MG PO DAILY for anxiety, #30 TAB Prov:FARHAD LEZAMA . 10/30/18 Hydroxyzine Hcl* (Atarax*) 25 Mg Tab, 50 MG PO Q8H PRN for ITCHING, #30 TAB Prov:FARHAD LEZAMA. 10/30/18 Pantoprazole* (Pantoprazole*) 40 Mg Tablet.dr, 40 MG PO DAILY, #30 TAB 2 Refills Prov:FARHAD LEZAMA . 10/30/18 Reported Medications Lorazepam* (Lorazepam*) 1 Mg Tablet, 1 MG PO TID PRN for ANXIETY for 14 Days 12/21/18 Temazepam (Restoril) 15 Mg Cap, 15 MG PO QHS PRN for SLEEP for 30 Days 12/21/18 Clonidine* (Cmpd) (Catapres SUSP (PEDIATRIC)*) 100 Mcg/Ml Susp, PO TID for 30 Days 12/21/18 Prednisone* (Prednisone*) 5 Mg Tab, 5 MG PO DAILY, TAB 11/16/18 Mycophenolate Mofetil* (Mycophenolate Mofetil*) 500 Mg Tablet, 1000 MG PO BID, TAB TAKE 2 TABLET BY MOUTH EVERY MORNING AND EVENING 06/30/18 Hydroxychloroquine Sulfate* (Hydroxychloroquine Sulfate*) 200 Mg Tablet, 200 MG PO DAILY, TAB TAKE 1 TAB BY MOUTH EVERY TUESDAY-Tuesday06/30/18 Follow-up Plan 1. Take all medications as prescribed 2. Continue outpatient dialysis as scheduled 3. For worsening shortness of breath or chest pain at rest, return to the emergency room Primary Care Provider Not On Staff Doctor Time spent on discharge: > 30 minutes Pending Labs Laboratory Tests Test 01/15/19 05:46 White Blood Count 3.3 10^3/ul (4.8-10.8) Red Blood Count 2.97 10^6/ul (4.20-5.40) Hemoglobin 9.1 g/dl (12.0-16.0) Hematocrit 30.7 % (37.0-47.0) Mean Corpuscular Volume 103.4 fl (82.0-101.0) Mean Corpuscular Hemoglobin 30.6 pg (29.0-33.0) Mean Corpuscular Hemoglobin Concent 29.6 g/dl (32.0-37.0) Red Cell Distribution Width 16.3 % (11.5-14.5) Platelet Count 129 10^3/UL (140-415) Mean Platelet Volume 11.0 fl (7.4-10.4) Immature Granulocytes % 0.300 % (0.001-0.429) Neutrophils % 36.5 % (39.0-77.0) Lymphocytes % 41.0 % (15.0-51.0) Monocytes % 21.6 % (0.0-11.0) Eosinophils % 0.3 % (0.0-7.0) Basophils % 0.3 % (0.0-2.0) Nucleated Red Blood Cells % 0.0 /100WBC (0.0-0.0) Immature Granulocytes # 0.010 10^3/ul (0.0-0.031) Neutrophils # 1.2 10^3/ul (1.6-7.5) Lymphocytes # 1.4 10^3/ul (0.8-2.9) Monocytes # 0.7 10^3/ul (0.3-0.9) Eosinophils # 0.0 10^3/ul (0.0-0.5) Basophils # 0.0 10^3/ul (0.0-0.1) Nucleated Red Blood Cells # 0.0 10^3/ul (0.0-0.0) Sodium Level 137 mmol/L (135-144) Potassium Level 5.7 mmol/L (3.5-5.1) Chloride Level 97 mmol/L (97-110) Carbon Dioxide Level 24 mmol/L (21-31) Anion Gap 16 (5-13) Blood Urea Nitrogen 40 mg/dl (7-20) Creatinine 5.82 mg/dl (0.44-1.00) Est Glomerular Filtrat Rate mL/min 8 mL/min (>60) Glucose Level 80 mg/dl (70-220) Calcium Level 9.3 mg/dl (8.4-10.2) LI GIL MD Jan 15, 2019 16:55
--- NOTE | 2019-01-15 17:13 | CONS ---
Assessment/Plan Assessment/Plan Assessment/Plan (Daily) 1. acute fluid overload 2 acute hyperkalemia 3. Hypertensive emergency 4. ESRD on HD 4 times a week 5. H/o HTN 6. h/o HL 7. H/o Lupus Plan: s/p HD 2 days in a row, Bp stable, will plan for HD tomorrow ,- pt regular schedule for HD is TTS at [facility]( she sometime gets extra Hd on Tuesday ) Nifedipine XL 60mg BID, IV hydralazine prn Continue other home BP meds will follow up Consultation Date/Type/Reason Admit Date/Time Jan 12, 2019 at 08:34 Initial Consult Date Type of Consult NEPHROLOGY Requesting Provider: JES ANDREWS Date/Time of Note DATE: 01/15/19 TIME: 17:12 24 HR Interval Summary Free Text/Dictation seen early in AM< BP stable,a febrile, no compalnts Exam/Review of Systems Exam Vitals Vital Signs Date Temp Pulse Resp B/P (MAP) Pulse Ox O2 O2 Flow FiO2 Time Delivery Rate 01/15/19 98.6 82 17 118/74 95 15:34 (89) 01/15/19 Room Air 14:20 01/13/19 2.0 10:49 Intake and Output 01/14/19 01/14/19 01/15/19 1515:00 23:00 07:00 IntakeIntake Total 600 ml BalanceBalance 600 ml Results Result Diagram: 01/15/19 0546 01/15/19 0546 Results 24hrs Laboratory Tests Test 01/15/19 05:46 White Blood Count 3.3 L Red Blood Count 2.97 L Hemoglobin 9.1 L Hematocrit 30.7 L Mean Corpuscular Volume 103.4 H Mean Corpuscular Hemoglobin 30.6 Mean Corpuscular Hemoglobin Concent 29.6 L Red Cell Distribution Width 16.3 H Platelet Count 129 L Mean Platelet Volume 11.0 H Immature Granulocytes % 0.300 Neutrophils % 36.5 L Lymphocytes % 41.0 Monocytes % 21.6 H Eosinophils % 0.3 Basophils % 0.3 Nucleated Red Blood Cells % 0.0 Immature Granulocytes # 0.010 Neutrophils # 1.2 L Lymphocytes # 1.4 Monocytes # 0.7 Eosinophils # 0.0 Basophils # 0.0 Nucleated Red Blood Cells # 0.0 Sodium Level 137 Potassium Level 5.7 H Chloride Level 97 Carbon Dioxide Level 24 Anion Gap 16 H Blood Urea Nitrogen 40 #H Creatinine 5.82 #H Est Glomerular Filtrat Rate mL/min 8 L Glucose Level 80 Calcium Level 9.3 ARTURO AMADOR MD Jan 15, 2019 17:13
== END 2019-01-15 16:10 | disposition home or self-care (01) | DRG 304 ==
LOC: E/R 06:36 → ICU 08:34 → TEL 01-13 13:46
PROVIDERS: ADMIT Internal Medicine; ATTEND Internal Medicine
PROC: 5A1D70Z Performance of Urinary Filtration, Intermittent, Less than 6 Hours Per Day (ICD-10-PCS; 2019-01-12)
PROC: 5A1D70Z Performance of Urinary Filtration, Intermittent, Less than 6 Hours Per Day (ICD-10-PCS; principal; 2019-01-14)
DX: I16.1 Hypertensive emergency (principal); J81.0 Acute pulmonary edema; J96.00 Acute respiratory failure, unspecified whether with hypoxia or hypercapnia; N18.6 End stage renal disease; R64 Cachexia; Z68.1 Body mass index [BMI] 19.9 or less, adult; M32.9 Systemic lupus erythematosus, unspecified; E87.70 Fluid overload, unspecified; E87.5 Hyperkalemia; I13.11 Hypertensive heart and chronic kidney disease without heart failure, with stage 5 chronic kidney disease, or end stage renal disease; E78.5 Hyperlipidemia, unspecified; F32.9 Major depressive disorder, single episode, unspecified; F17.200 Nicotine dependence, unspecified, uncomplicated; Z99.2 Dependence on renal dialysis; Z91.14 Patient's other noncompliance with medication regimen; Z79.82 Long term (current) use of aspirin
CPT/HCPCS: 71045; 80048; 82550; 82553; 82962; 83735; 84100; 84484; 85025; 85610; 85730; 87081; 87340; 90935; 93005; 96374; 96375; J0360; J1644; J2270; J2405; J2765; J7512; J7517

== ENCOUNTER 2019-01-30 04:53 | Inpatient (IN) | payer MEDICARE, OTHER ==
[~2019-01-30] VITALS: Ht 144.8 cm; Wt 49.0 kg
[2019-01-30] VITALS (54 sets, daily range): BP systolic 121–204; BP diastolic 77–125; PULSE 107–137; RESP 13–46; Ht 144.8 cm; Wt 49.0 kg
[2019-01-30] MEDS ORDERED: ONDANSETRON 4 MG INJ IV STA (05:37)
[2019-01-30] MEDS ORDERED: HYDROmorphONE 1 MG/ML SYG IV STA (05:37)
[2019-01-30] MEDS ORDERED: FUROSEMIDE 40 MG INJ IV ONE (06:00)
--- NOTE | 2019-01-30 06:06 | ERD ---
ER Documentation Chief Complaint Chief Complaint Dialysis pt, c/o sob/CP HPI Is a 33-year-old female who comes in with chest pain shortness of breath. Pain is mild to moderate intensity with no exacerbating alleviating factors. No fevers no chills. No other current issues. Pain is mild to moderate in intensity. It woke the patient up from bed. ROS All systems reviewed and are negative except as per history of present illness. Medications Home Meds Active Scripts Aspirin* (Aspirin* (EC)) 81 Mg Tablet., 81 MG PO DAILY, #30 TAB 2 Refills otc Prov:LI GIL MD 01/15/19 Clonidine Hcl* (Catapres*) 0.1 Mg Tablet, 0.1 MG PO TID, #90 TAB Prov:VALERIA PETER NP 12/14/18 Carvedilol* (Carvedilol*) 25 Mg Tablet, 50 MG PO Q12, #60 TAB Prov:FARHAD LEZAMA . 11/23/18 Diphenhydramine Hcl* (Benadryl*) 25 Mg Cap, 25 MG PO Q6 PRN for ITCHING/RASH, #30 TAB Prov:FADY ADAM 11/16/18 Nifedipine (Procardia Xl) 60 Mg Tab.er.24, 60 MG PO BID for 30 Days, #60 TAB 2 Refills Prov:FARHAD LEZAMA . 10/30/18 Sertraline Hcl* (Sertraline Hcl*) 25 Mg Tablet, 25 MG PO DAILY for anxiety, #30 TAB Prov:FARHAD LEZAMA . 10/30/18 Hydroxyzine Hcl* (Atarax*) 25 Mg Tab, 50 MG PO Q8H PRN for ITCHING, #30 TAB Prov:FARHAD LEZAMA . 10/30/18 Pantoprazole* (Pantoprazole*) 40 Mg Tablet., 40 MG PO DAILY, #30 TAB 2 Refills Prov:FARHAD LEZAMA . 10/30/18 Reported Medications Lorazepam* (Lorazepam*) 1 Mg Tablet, 1 MG PO TID PRN for ANXIETY for 14 Days 12/21/18 Temazepam (Restoril) 15 Mg Cap, 15 MG PO QHS PRN for SLEEP for 30 Days 12/21/18 Clonidine* (Cmpd) (Catapres SUSP (PEDIATRIC)*) 100 Mcg/Ml Susp, PO TID for 30 Days 12/21/18 Prednisone* (Prednisone*) 5 Mg Tab, 5 MG PO DAILY, TAB 11/16/18 Mycophenolate Mofetil* (Mycophenolate Mofetil*) 500 Mg Tablet, 1000 MG PO BID, TAB TAKE 2 TABLET BY MOUTH EVERY MORNING AND EVENING 06/30/18 Hydroxychloroquine Sulfate* (Hydroxychloroquine Sulfate*) 200 Mg Tablet, 200 MG PO DAILY, TAB TAKE 1 TAB BY MOUTH EVERY TUESDAY-Tuesday06/30/18 Allergies Allergies: Coded Allergies: hydrocodone (Unverified Allergy, Unknown, paralysis, 01/12/19) PMhx/Soc History of Surgery: Yes (av fistula placement) Anesthesia Reaction: No Hx Neurological Disorder: No Hx Respiratory Disorders: Yes Hx Cardiac Disorders: Yes (htn) Hx Psychiatric Problems: No Hx Miscellaneous Medical Probl: Yes (lupus) Hx Alcohol Use: No Hx Substance Use: No Hx Tobacco Use: No Physical Exam Vitals Vital Signs Date Temp Pulse Resp B/P (MAP) Pulse Ox O2 O2 Flow FiO2 Time Delivery Rate 01/30/19 98.7 109 24 122/75 97 05:01 (91) Physical Exam Const: No acute distress Head: Atraumatic Eyes: Normal Conjunctiva ENT: Normal External Ears, Nose and Mouth. Neck: Full range of motion. No meningismus. Resp: Clear to auscultation bilaterally Cardio: Regular rate and rhythm, no murmurs Abd: Soft, non tender, non distended. Normal bowel sounds Skin: No petechiae or rashes Back: No midline or flank tenderness Ext: No cyanosis, or edema Neur: Awake and alert Psych: Normal Mood and Affect Result Diagram: 01/30/19 0526 Results 24 hrs Laboratory Tests Test 01/30/19 05:26 White Blood Count 7.3 10^3/ul Red Blood Count 2.88 10^6/ul Hemoglobin 8.7 g/dl Hematocrit 29.0 % Mean Corpuscular Volume 100.7 fl Mean Corpuscular Hemoglobin 30.2 pg Mean Corpuscular Hemoglobin Concent 30.0 g/dl Red Cell Distribution Width 16.0 % Platelet Count 113 10^3/UL Mean Platelet Volume 11.0 fl Immature Granulocytes % 0.600 % Neutrophils % 69.1 % Lymphocytes % 18.6 % Monocytes % 10.3 % Eosinophils % 1.1 % Basophils % 0.3 % Nucleated Red Blood Cells % 0.0 /100WBC Immature Granulocytes # 0.040 10^3/ul Neutrophils # 5.0 10^3/ul Lymphocytes # 1.4 10^3/ul Monocytes # 0.8 10^3/ul Eosinophils # 0.1 10^3/ul Basophils # 0.0 10^3/ul Nucleated Red Blood Cells # 0.0 10^3/ul Current Medications Medications Dose Sig/Damaso Start Time Status Last (Trade) Ordered Route PRN Stop Time Admin Dose Reason Admin 1 mg ONCE STAT 01/30/19 DC 01/30/19 Hydromorphone IV 05:37 01/30/19 05:43 HCl 05:39 (Dilaudid) Ondansetron 4 mg ONCE STAT 01/30/19 DC 01/30/19 HCl (Zofran IV 05:37 01/30/19 05:43 Inj) 05:39 Furosemide 40 mg ONCE ONCE 01/30/19 DC (Lasix) IV 06:00 01/30/19 06:01 Procedures/MDM EKG: Rate/Rhythm: [Normal Sinus Rhythm] QRS, ST, T-waves: [No changes consistent w/ acute ischemia], normal intervals, upgoing T waves, normal axis Impression: [No evidence of ischemia or arrhythmia] Chest X-ray 1V Interpreted by me: Soft Tissue: No acute abnormalities Bones: No acute abnormalities Mediastinum/Cardiac Silhouette/Lungs: [No acute abnormalities] Medical decision making: Patient's symptoms are concerning for cardiac cause w ill require inpatient workup and continuous monitoring. Further w/u for ischemia, arrhythmia, PE or dissection will be deferred to the inpatient team. Accepting Care Team: Current data and ongoing care discussed. Time: 5:50 AM Primary Provider: Hospitalist Consulting: Deferred to inpatient team Outstanding Data: none Departure Diagnosis: Primary Impression: Chest pain Chest pain type: unspecified Qualified Codes: R07.9 - Chest pain, unspecified Condition: Serious TERRI CURRAN Jan 30, 2019 06:06
[2019-01-30] MEDS ORDERED: BISACODYL (EC) 5 MG TAB PO PRN (06:30)
[2019-01-30] MEDS ORDERED: NACL 0.9% 3 ML SYG IV SCH (06:30)
[2019-01-30] MEDS ORDERED: DOCUSATE SODIUM 100 MG CAP PO PRN (06:30)
[2019-01-30] MEDS: ACETAMINOPHEN 325 MG TAB PO PRN ×2 (07:44→16:02)
[2019-01-30] MEDS: HEPARIN 5,000 UNIT/1 ML VIAL SC SCH ×2 (09:01→21:31)
[2019-01-30] MEDS: HYDROmorphONE 2 MG/ML SYG IV PRN ×4 (09:46→22:57)
[2019-01-30] MEDS ORDERED: IPRATROPIUM (NEB) 0.5 MG/2.5 ML AMP HHN PRN (12:00)
[2019-01-30] MEDS ORDERED: ONDANSETRON 4 MG INJ IV PRN (12:00)
[2019-01-30] MEDS: METOCLOPRAMIDE 10 MG INJ IV SCH ×2 (12:43→18:28)
[2019-01-30] MEDS ORDERED: ALBUMIN HUMAN 25% 100 ML IV PRN (13:00)
[2019-01-30] MEDS ORDERED: HEPARIN 1000 UNITS/ML 10 ML INJ CATHETER SCH (13:00)
[2019-01-30] MEDS ORDERED: SODIUM CHLORIDE 0.9% 1L BAG IV PRN (13:00)
[2019-01-30] MEDS ORDERED: IPRATROPIUM (NEB) 0.5 MG/2.5 ML AMP HHN ONE (13:00)
[2019-01-30] MEDS: NITROGLYCERIN (SL) 0.4 MG TAB SL PRN ×2 (13:07→13:35)
--- NOTE | 2019-01-30 13:08 | CONS ---
Assessment/Plan Assessment/Plan Assessment/Plan (Daily) 1. acute hyperklaemia 2. acute fluid overload 3. HTN urgency 4. ESRD on HD- on 4 times a week HD schedule and Tuesday 5. acute chest pain 6. h/o lupus 7. h/o depression Plan: Admission to telemetry floor Plan fo rHD today urgency with goal UF 3 L as tolerated Nifedipine 90mg PO x 1 dose stat then 60mg BID IV hydralazine prn, S/p kayexalate in ED, will monitor K plan for HD tomorrow also then we will keep pt on , , Tuesday, she is already on 4 times a week HD schedule in HD unit will follow up Thanks for consultation Consultation Date/Type/Reason Admit Date/Time Jan 30, 2019 at 05:59 Date of Consultation: Jan 30, 2019 Type of Consult NEPHROLOGY Reason for Consultation Acidosis, ESRD on HD with acute chest pain, HTN urgency Requesting Provider: FARHAD LEZAMA Date/Time of Note DATE: 01/30/19 TIME: 13:08 Hx of Present Illness 33-year-old female who has a history of end-stage renal disease secondary to lupus, difficult to control hypertension and chronic depression, will get h emodialysis on an outpatient basis Tuesdays, and Saturdays, and occasionally on Tuesday. Today is Tuesday and her last dialysis session was on Tuesday. She started having shortness of breath overnight where he finds it difficult to breathe. She started to have chest discomfort. CT scan of chest on last admission showed interval decrease in ground-glass opacities and septal thickening of the bilateral lungs suggestive of pulmonary edema, mild interval increase in moderate right pleural effusion and stable left pleural effusion. Unchanged cardiomegaly and a small pericardial effusion and no evidence of interstitial lung disease. During this admisison she had a hyperkalemia in ED, HTN urgency with SBP in 180- 190s, renal has been consulted for acute hyperkalemia, Hypertensive urgency and acute fluid overload Constitutional: no complaints Eyes: no complaints ENT: congestion Respiratory: shortness of breath Cardiovascular: chest pain, edema, orthopenea Gastrointestinal: decreased appetite Genitourinary: no complaints Musculoskeletal: no complaints Skin: no complaints Neurologic: no complaints Endocrine: no complaints Lymphatic: no complaints Psychological: no complaints, nl mood/affect Immunologic: no complaints Past Medical History Medical History: high cholesterol, hypertension, renal disease, other (ESRD on HD, Lupus , depression ) Home Meds Active Scripts Aspirin* (Aspirin* (EC)) 81 Mg Tablet., 81 MG PO DAILY, #30 TAB 2 Refills otc Prov:LI GIL MD 01/15/19 Clonidine Hcl* (Catapres*) 0.1 Mg Tablet, 0.1 MG PO TID, #90 TAB Prov:VALERIA PETER NP 12/14/18 Carvedilol* (Carvedilol*) 25 Mg Tablet, 50 MG PO Q12, #60 TAB Prov:LISEJEMMA DiazHannah . 11/23/18 Diphenhydramine Hcl* (Benadryl*) 25 Mg Cap, 25 MG PO Q6 PRN for ITCHING/RASH, #30 TAB Prov:FADY ADAM 11/16/18 Nifedipine (Procardia Xl) 60 Mg Tab.er.24, 60 MG PO BID for 30 Days, #60 TAB 2 Refills Prov:FARHAD LEZAMA Fabrizio 10/30/18 Sertraline Hcl* (Sertraline Hcl*) 25 Mg Tablet, 25 MG PO DAILY for anxiety, #30 TAB Prov:ELISABETH LEZAMACRITICAL ACCESS HOSPITALHannah . 10/30/18 Hydroxyzine Hcl* (Atarax*) 25 Mg Tab, 50 MG PO Q8H PRN for ITCHING, #30 TAB Prov:LISEJEMMAHannah . 10/30/18 Pantoprazole* (Pantoprazole*) 40 Mg Tablet., 40 MG PO DAILY, #30 TAB 2 Refills Prov:LISEELISABETH DiazPILO Fabrizio 10/30/18 Reported Medications Lorazepam* (Lorazepam*) 1 Mg Tablet, 1 MG PO TID PRN for ANXIETY for 14 Days 12/21/18 Temazepam (Restoril) 15 Mg Cap, 15 MG PO QHS PRN for SLEEP for 30 Days 12/21/18 Prednisone* (Prednisone*) 5 Mg Tab, 5 MG PO DAILY, TAB 11/16/18 Mycophenolate Mofetil* (Mycophenolate Mofetil*) 500 Mg Tablet, 1000 MG PO BID, TAB TAKE 2 TABLET BY MOUTH EVERY MORNING AND EVENING 06/30/18 Hydroxychloroquine Sulfate* (Hydroxychloroquine Sulfate*) 200 Mg Tablet, 200 MG PO DAILY, TAB TAKE 1 TAB BY MOUTH EVERY TUESDAY-Tuesday06/30/18 Discontinued Reported Medications Clonidine* (Cmpd) (Catapres SUSP (PEDIATRIC)*) 100 Mcg/Ml Susp, PO TID for 30 Days 12/21/18 Medications Current Medications IV Flush (NS 3 ml) 3 ml PER PROTOCOL IV ; Start 01/30/19 at 06:30 Nitroglycerin (Nitroglycerin (Sl Tab) 0.4 Mg) 1 tab Q5M PRN SL .CHEST PAIN Last administered on 01/30/19 13:07; Admin Dose 1 TAB; Start 01/30/19 at 06:30 Acetaminophen (Tylenol Tab) 650 mg Q6H PRN PO .PAIN 1-3 OR TEMP Last administered on 01/30/19at 07:44; Admin Dose 650 MG; Start 01/30/19 at 06:30 Docusate Sodium (Colace) 100 mg Q12H PRN PO .CONSTIPATION; Start 01/30/19 at 06:30 Bisacodyl (Dulcolax) 5 mg DAILY PRN PO .CONSTIPATION; Start 01/30/19 at 06:30 Heparin Sodium (Porcine) (Heparin (5000 Units/1ml)) 5,000 unit Q12 SC Last administered on 01/30/19 09:01; Admin Dose 5,000 UNIT; Start 01/30/19 at 09:00 Hydromorphone HCl (Dilaudid) 1 mg Q4 PRN IV pain Last administered on 01/30/19 09:46; Admin Dose 1 MG; Start 01/30/19 at 08:00 Ondansetron HCl (Zofran Inj) 4 mg Q6H PRN IV NAUSEA AND/OR VOMITING Last administered on 01/30/19 12:16; Admin Dose 4 MG; Start 01/30/19 at 12:00 Metoclopramide HCl (Reglan) 5 mg Q6 IV Last administered on 01/30/19 12:43; Admin Dose 5 MG; Start 01/30/19 at 13:00; Stop 02/01/19 at 12:59 Ipratropium [place] (Atrovent 0.02% (Neb)) 0.5 mg Q4H RESP THERAPY PRN HHN SHORTNESS OF BREATH; Start 01/30/19 at 12:00 Heparin Sodium (Porcine) (Heparin (1000 Units/ml)) 4,000 unit AFTER DIALYSIS CATHETER ; Start 01/30/19 at 13:00 Albumin Human 100 ml @ 100 mls/hr WITH DIALYSIS PRN IV SBP <90 DURING DIALYSIS; Start 01/30/19 at 13:00 Sodium Chloride (NS) -To prime the dialy... DIRECTED FOR HD PRN IV HD; Start 01/30/19 at 13:00 Allergies: Coded Allergies: hydrocodone (Unverified Allergy, Unknown, paralysis, 01/30/19) Past Surgical History Past Surgical Hx: other Family History Significant Family History: no pertinent family hx Social History Alcohol Use: none Smoking Status: Never smoker Drug Use: none Exam/Review of Systems Exam Vitals Vital Signs Date Temp Pulse Resp B/P (MAP) Pulse Ox O2 O2 Flow FiO2 Time Delivery Rate 01/30/19 120 28 94 Nasal 2.0 12:47 Cannula 01/30/19 97.6 153/104 11:27 (120) Constitutional: alert Psych: no complaints Head: normocephalic Eyes: nl conjunctiva ENMT: nl external ears & nose Neck: supple, non-tender Respiratory: diminished breath sounds Cardiovascular: regular rate and rhythm Gastrointestinal: soft, non-tender Musculoskeletal: nl extremities to inspection, swelling Extremities: normal pulses 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 intact, nl mental status, nl speech, nl strength Skin: nl turgor Lymph: nl lymph nodes Results Result Diagram: 01/30/19 0526 01/30/19 0526 Results 24hrs Laboratory Tests Test 01/30/19 05:26 01/30/19 10:40 White Blood Count 7.3 # Red Blood Count 2.88 L Hemoglobin 8.7 L Hematocrit 29.0 L Mean Corpuscular Volume 100.7 Mean Corpuscular Hemoglobin 30.2 Mean Corpuscular Hemoglobin Concent 30.0 L Red Cell Distribution Width 16.0 H Platelet Count 113 L Mean Platelet Volume 11.0 H Immature Granulocytes % 0.600 H Neutrophils % 69.1 Lymphocytes % 18.6 Monocytes % 10.3 Eosinophils % 1.1 Basophils % 0.3 Nucleated Red Blood Cells % 0.0 Immature Granulocytes # 0.040 H Neutrophils # 5.0 Lymphocytes # 1.4 Monocytes # 0.8 Eosinophils # 0.1 Basophils # 0.0 Nucleated Red Blood Cells # 0.0 Sodium Level 142 Potassium Level 5.3 H Chloride Level 103 Carbon Dioxide Level 20 L Anion Gap 19 H Blood Urea Nitrogen 46 H Creatinine 7.99 H Est Glomerular Filtrat Rate mL/min 6 L Glucose Level 84 Calcium Level 8.6 Troponin I 0.013 < 0.012 Creatine Kinase 24 Creatine Kinase Index 1.3 Creatinine Kinase MB (Mass) 0.30 Medications Medication Current Medications IV Flush (NS 3 ml) 3 ml PER PROTOCOL IV ; Start 01/30/19 at 06:30 Nitroglycerin (Nitroglycerin (Sl Tab) 0.4 Mg) 1 tab Q5M PRN SL .CHEST PAIN Last administered on 01/30/19 13:07; Admin Dose 1 TAB; Start 01/30/19 at 06:30 Acetaminophen (Tylenol Tab) 650 mg Q6H PRN PO .PAIN 1-3 OR TEMP Last administered on 01/30/19 07:44; Admin Dose 650 MG; Start 01/30/19 at 06:30 Docusate Sodium (Colace) 100 mg Q12H PRN PO .CONSTIPATION; Start 01/30/19 at 06:30 Bisacodyl (Dulcolax) 5 mg DAILY PRN PO .CONSTIPATION; Start 01/30/19 at 06:30 Heparin Sodium (Porcine) (Heparin (5000 Units/1ml)) 5,000 unit Q12 SC Last administered on 01/30/19 09:01; Admin Dose 5,000 UNIT; Start 01/30/19 at 09:00 Hydromorphone HCl (Dilaudid) 1 mg Q4 PRN IV pain Last administered on 01/30/19 09:46; Admin Dose 1 MG; Start 01/30/19 at 08:00 Ondansetron HCl (Zofran Inj) 4 mg Q6H PRN IV NAUSEA AND/OR VOMITING Last administered on 01/30/19 12:16; Admin Dose 4 MG; Start 01/30/19 at 12:00 Metoclopramide HCl (Reglan) 5 mg Q6 IV Last administered on 01/30/19 12:43; Admin Dose 5 MG; Start 01/30/19 at 13:00; Stop 02/01/19 at 12:59 Ipratropium [place] (Atrovent 0.02% (Neb)) 0.5 mg Q4H RESP THERAPY PRN HHN SHORTNESS OF BREATH; Start 01/30/19 at 12:00 Heparin Sodium (Porcine) (Heparin (1000 Units/ml)) 4,000 unit AFTER DIALYSIS CATHETER ; Start 01/30/19 at 13:00 Albumin Human 100 ml @ 100 mls/hr WITH DIALYSIS PRN IV SBP <90 DURING DIALYSIS; Start 01/30/19 at 13:00 Sodium Chloride (NS) -To prime the dialy... DIRECTED FOR HD PRN IV HD; Start 01/30/19 at 13:00 ARTURO AMADOR MD Jan 30, 2019 13:08
[2019-01-30] MEDS ORDERED: LORAZEPAM 2 MG INJ IM ONE (14:00)
[2019-01-30] MEDS ORDERED: hydrALAzine 20 MG INJ ONE (14:07)
[2019-01-30] MEDS ORDERED: hydrALAzine 20 MG INJ IV PRN (14:30)
[2019-01-30] MEDS ORDERED: LORAZEPAM 2 MG INJ IV ONE (14:30)
[2019-01-30] MEDS ORDERED: NIFEdipine (XL) 90 MG TAB PO ONE (15:00)
[2019-01-30] MEDS ORDERED: niCARdipine-NS 0.1MG/ML DRIP 200 ML ONE (16:02)
[2019-01-30] MEDS ORDERED: HYDROmorphONE 0.5 MG/0.5 ML SYG ONE (16:14)
[2019-01-30] MEDS: niCARdipine-NS 0.1MG/ML DRIP 200 ML IV SCH ×3 (16:15→22:52)
[2019-01-30] MEDS ORDERED: HYDROmorphONE 0.5 MG/0.5 ML SYG IV STA (16:31)
[2019-01-30] MEDS ORDERED: LORAZEPAM 1 MG TAB PO PRN (17:00)
--- NOTE | 2019-01-30 17:12 | EN ---
Date/Time of Note Date/Time of Note DATE: 01/30/19 TIME: 17:09 Event Note Medicine Medicine Event Note SPOTTER called at 1515 for shortness of breath and chest pain. Arrived to the room and patient was seen in respiratory distress with accessory muscle use. Vitals revealed SBP >200 and HR 120s. Patient was saturating 98% on 2L. She was complaining of chest pain and difficulty breathing. She was given hydralazine with minimal improvement in BP and Nifedipine was ordered but patient too tachypneic for PO intake. Patient also noted to be trembling and requesting pain medication. She was given Ativan and Metoprolol with improvement of SBP to 188 and HR to 116. She was increased to 5L NC and saturating 94%. STAT HD ordered were placed but given HD nurse was not available, decision was made to transfer to ICU. Patient recheck of SBP was 197 prior to transfer to ICU. Physical exam General: Patient is currently lying in bed, respiratory distress with accessory muscle use, trembling. Anxious HEENT: Atraumatic, normocephalic. The pupils are equal, round and reactive. Extraocular motor are intact Neck: Supple with full range of motion. No rigidity or meningismus Chest: Nontender Lungs: diminished at bases. rales right lobe Heart: Normal S1-S2, Regular rhythm and tachycardia. No murmur, S3, or S4 Abdomen: Soft , nontender, nondistended , bowel sounds are present. No guarding no rebound tenderness , No masses or organomegaly. No costovertebral temporal angle mass Extremities: Normal to inspection, no edema no cyanosis In ICU patient still found with elevated SBP and HR. She was started on Cardene drip for elevated BP. She was evaluated by Dr. Rodriguez who was in the unit. patient experienced a panic attack and was given Dilaudid due to complaints of pain. She was started on HD as well. Patient spike a fever of 102 and pancultures were ordered. Primary MD was notified of patients condition and move to ICU. >60 minutes of critical care time spent with patient. KHADIJAH SMITH MD Jan 30, 2019 17:12
--- NOTE | 2019-01-30 17:23 | CONS ---
Assessment/Plan Assessment/Plan Hospital Course (Demo Recall) 1. Acute hypoxemic respiratory failure secondary to fluid overload and hypertensive urgency 2. Hypertensive urgency 3. Renal failure on dialysis 4. Hyperkalemia 5. History of lupus 6. History of pericardial effusion 7. Diabetes 8. Anemia Recommendations: Continue with Cardene drip for now. Coreg will be added to adjust the blood pressure and heart rate better Urgent hemodialysis is being done. Fluid removal and management as per renal through hemodialysis. Continue with ICU care for now. Oxygen supplement will be given as well. Thank you for his referral. We will continue to follow along with you SERGO MUNOZ MD [facility] Consultation Date/Type/Reason Admit Date/Time Jan 30, 2019 at 05:59 Date of Consultation: Jan 30, 2019 Type of Consult Cardiology Reason for Consultation htn urgency Requesting Provider: KHADIJAH SMITH MD Date/Time of Note DATE: 01/30/19 TIME: 17:17 Hx of Present Illness Interventional cardiology consultation note Chief complaint: SOB Reason for consult: HTN urgency, History of present illness: Thank you for this referral. History was obtained from pt and discussion with the physician and staff review of the old chart patient was very well-known to me from previous admission to the hospital. This is a 33-year-old female who is well known to me from multiple hospitalizations, with multiple complicated medical problems who was brought in because of increase in shortness of breath over the past day. Patient stated last dialysis was on Tuesday as a scheduled. By Tuesday she was having severe shortness of breath and difficulty breathing. She came to emergency room was noted to be severely hypertensive as well. Patient has also just lost her brother as well and has been anxious about it as well. Patient had to be admitted to intensive care unit. She has been placed on Cardene drip for better blood pressure control and emergently currently being dialyzed. Patient is also had a fever PAST MEDICAL HISTORY: 1. Lupus. 2. End-stage renal disease on hemodialysis. 3. Hypertension. 4. Chronic depression. 5. History of small to moderate pericardial effusion has been stable 6. History of right upper extremity DVT and cellulitis previously anticoagulation PAST SURGICAL HISTORY: Includes dialysis access placement and a . ALLERGIES: 1. ADHESIVE TAPE. 2. HYDROCODONE. SOCIAL HISTORY: The patient resides with her parents and her family who cares for her. Denies tobacco, alcohol or illicit drug use. Review of system: Patient denies all others except for above-mentioned Past Medical History Home Meds Active Scripts Aspirin* (Aspirin* (EC)) 81 Mg Tablet., 81 MG PO DAILY, #30 TAB 2 Refills otc Prov:LI GIL MD 01/15/19 Clonidine Hcl* (Catapres*) 0.1 Mg Tablet, 0.1 MG PO TID, #90 TAB Prov:VALERIA PETER NP 12/14/18 Carvedilol* (Carvedilol*) 25 Mg Tablet, 50 MG PO Q12, #60 TAB Prov:FARHAD LEZAMA. 11/23/18 Diphenhydramine Hcl* (Benadryl*) 25 Mg Cap, 25 MG PO Q6 PRN for ITCHING/RASH, #30 TAB Prov:FADY ADAM 11/16/18 Nifedipine (Procardia Xl) 60 Mg Tab.er.24, 60 MG PO BID for 30 Days, #60 TAB 2 Refills Prov:JEMMA LEZAMAHannah Fabrizio 10/30/18 Sertraline Hcl* (Sertraline Hcl*) 25 Mg Tablet, 25 MG PO DAILY for anxiety, #30 TAB [facility] 10/30/18 Hydroxyzine Hcl* (Atarax*) 25 Mg Tab, 50 MG PO Q8H PRN for ITCHING, #30 TAB Prov:FARHAD LEZAMA . 10/30/18 Pantoprazole* (Pantoprazole*) 40 Mg Tablet., 40 MG PO DAILY, #30 TAB 2 Refills Prov:JEMMA LEZAMAHannah TitusFabrizio 10/30/18 Reported Medications Lorazepam* (Lorazepam*) 1 Mg Tablet, 1 MG PO TID PRN for ANXIETY for 14 Days 12/21/18 Temazepam (Restoril) 15 Mg Cap, 15 MG PO QHS PRN for SLEEP for 30 Days 12/21/18 Prednisone* (Prednisone*) 5 Mg Tab, 5 MG PO DAILY, TAB 11/16/18 Mycophenolate Mofetil* (Mycophenolate Mofetil*) 500 Mg Tablet, 1000 MG PO BID, TAB TAKE 2 TABLET BY MOUTH EVERY MORNING AND EVENING 06/30/18 Hydroxychloroquine Sulfate* (Hydroxychloroquine Sulfate*) 200 Mg Tablet, 200 MG PO DAILY, TAB TAKE 1 TAB BY MOUTH EVERY TUESDAY-Tuesday06/30/18 Discontinued Reported Medications Clonidine* (Cmpd) (Catapres SUSP (PEDIATRIC)*) 100 Mcg/Ml Susp, PO TID for 30 Days 12/21/18 Medications Current Medications IV Flush (NS 3 ml) 3 ml PER PROTOCOL IV ; Start 01/30/19 at 06:30 Nitroglycerin (Nitroglycerin (Sl Tab) 0.4 Mg) 1 tab Q5M PRN SL .CHEST PAIN Last administered on 01/30/19 13:35; Admin Dose 1 TAB; Start 01/30/19 at 06:30 Acetaminophen (Tylenol Tab) 650 mg Q6H PRN PO .PAIN 1-3 OR TEMP Last administered on 01/30/19 16:02; Admin Dose 650 MG; Start 01/30/19 at 06:30 Docusate Sodium (Colace) 100 mg Q12H PRN PO .CONSTIPATION; Start 01/30/19 at 06:30 Bisacodyl (Dulcolax) 5 mg DAILY PRN PO .CONSTIPATION; Start 01/30/19 at 06:30 Heparin Sodium (Porcine) (Heparin (5000 Units/1ml)) 5,000 unit Q12 SC Last administered on 01/30/19 09:01; Admin Dose 5,000 UNIT; Start 01/30/19 at 09:00 Hydromorphone HCl (Dilaudid) 1 mg Q4 PRN IV pain Last administered on 01/30/19 13:41; Admin Dose 1 MG; Start 01/30/19 at 08:00 Ondansetron HCl (Zofran Inj) 4 mg Q6H PRN IV NAUSEA AND/OR VOMITING Last administered on 01/30/19 12:16; Admin Dose 4 MG; Start 01/30/19 at 12:00 Metoclopramide HCl (Reglan) 5 mg Q6 IV Last administered on 01/30/19 12:43; Admin Dose 5 MG; Start 01/30/19 at 13:00; Stop 02/01/19 at 12:59 Ipratropium [place] (Atrovent 0.02% (Neb)) 0.5 mg Q4H RESP THERAPY PRN HHN SHORTNESS OF BREATH; Start 01/30/19 at 12:00 Heparin Sodium (Porcine) (Heparin (1000 Units/ml)) 4,000 unit AFTER DIALYSIS CATHETER ; Start 01/30/19 at 13:00 Albumin Human 100 ml @ 100 mls/hr WITH DIALYSIS PRN IV SBP <90 DURING DIALYSIS; Start 01/30/19 at 13:00 Sodium Chloride (NS) -To prime the dialy... DIRECTED FOR HD PRN IV HD; Start 01/30/19 at 13:00 Hydralazine HCl (Apresoline) 10 mg Q6H PRN IV SBP>160 Last administered on 01/30/19at 14:09; Admin Dose 10 MG; Start 01/30/19 at 14:30 Nicardipine HCl 200 ml @ 50 mls/hr TITRATE IV Last administered on 01/30/19at 16:15; Admin Dose 50 MLS/HR; Start 01/30/19 at 16:30 Levalbuterol (Xopenex Neb) 0.63 mg Q6H RESP THERAPY HHN ; Start 01/30/19 at 20:00 Aspirin (Halfprin) 81 mg DAILY PO ; Start 01/31/19 at 09:00 Carvedilol (Coreg) 50 mg Q12 PO ; Start 01/30/19 at 21:00 Clonidine (Catapres) 0.1 mg TID PO ; Start 01/30/19 at 17:30 Hydroxychloroquine Sulfate (Plaquenil) 200 mg DAILY PO ; Start 01/31/19 at 09:00 Hydroxyzine HCl (Atarax) 50 mg Q8H PRN PO ITCHING; Start 01/30/19 at 17:00 Lorazepam (Ativan) 1 mg TID PRN PO ANXIETY; Start 01/30/19 at 17:00 Mycophenolate Mofetil (Cellcept) 1,000 mg BID PO ; Start 01/30/19 at 21:00 Nifedipine (Procardia Xl) 60 mg BID PO ; Start 01/30/19 at 21:00 Pantoprazole (Protonix Tab) 40 mg DAILY@0600 PO ; Start 01/31/19 at 06:00 Prednisone (Prednisone) 5 mg DAILY PO ; Start 01/31/19 at 09:00 Sertraline HCl (Zoloft) 25 mg DAILY PO ; Start 01/30/19 at 18:00 Allergies: Coded Allergies: hydrocodone (Unverified Allergy, Unknown, paralysis, 01/30/19) Past Surgical History Past Surgical Hx: other Social History Smoking Status: Never smoker Exam/Review of Systems Vital Signs Vitals Vital Signs Date Temp Pulse Resp B/P (MAP) Pulse Ox O2 O2 Flow FiO2 Time Delivery Rate 01/30/19 132 16:00 01/30/19 Nasal 3.0 14:28 Cannula 01/30/19 21 175/102 93 14:14 (126) 01/30/19 97.6 11:27 Exam Exam General: Young female with respiratory distress HEENT: NC/AT. pupils are equal. round. NECK: NO JVD. no stridor. CV: Tachycardic. systolic murmur; no gallop or rubs. PULM: no wheezing mild rhonchi. GI: SOFT, NT, ND, no rebound or guarding Extremity: trace B/L LE edema. no clubbing. neuro: awake and alert, OX3. Psych: Appears anxious rectal: deferred EKG was personally reviewed showed normal sinus rhythm Chest x-ray shows: Mildly enlarged cardiac silhouette and pulmonary venous congestion. Bronchial wall cuffing favored to represent mild edema. Labs Result Diagram: 01/30/19 0526 01/30/19 0526 Results 24hrs Laboratory Tests Test 01/30/19 05:26 01/30/19 10:40 01/30/19 15:12 White Blood Count 7.3 # Red Blood Count 2.88 L Hemoglobin 8.7 L Hematocrit 29.0 L Mean Corpuscular Volume 100.7 Mean Corpuscular Hemoglobin 30.2 Mean Corpuscular Hemoglobin Concent 30.0 L Red Cell Distribution Width 16.0 H Platelet Count 113 L Mean Platelet Volume 11.0 H Immature Granulocytes % 0.600 H Neutrophils % 69.1 Lymphocytes % 18.6 Monocytes % 10.3 Eosinophils % 1.1 Basophils % 0.3 Nucleated Red Blood Cells % 0.0 Immature Granulocytes # 0.040 H Neutrophils # 5.0 Lymphocytes # 1.4 Monocytes # 0.8 Eosinophils # 0.1 Basophils # 0.0 Nucleated Red Blood Cells # 0.0 Sodium Level 142 Potassium Level 5.3 H Chloride Level 103 Carbon Dioxide Level 20 L Anion Gap 19 H Blood Urea Nitrogen 46 H Creatinine 7.99 H Est Glomerular Filtrat Rate mL/min 6 L Glucose Level 84 Calcium Level 8.6 Troponin I 0.013 < 0.012 Creatine Kinase 24 Creatine Kinase Index 1.3 Creatinine Kinase MB (Mass) 0.30 Bedside Glucose 84 Medications Medications Current Medications IV Flush (NS 3 ml) 3 ml PER PROTOCOL IV ; Start 01/30/19 at 06:30 Nitroglycerin (Nitroglycerin (Sl Tab) 0.4 Mg) 1 tab Q5M PRN SL .CHEST PAIN Last administered on 01/30/19 13:35; Admin Dose 1 TAB; Start 01/30/19 at 06:30 Acetaminophen (Tylenol Tab) 650 mg Q6H PRN PO .PAIN 1-3 OR TEMP Last administered on 01/30/19 16:02; Admin Dose 650 MG; Start 01/30/19 at 06:30 Docusate Sodium (Colace) 100 mg Q12H PRN PO .CONSTIPATION; Start 01/30/19 at 06:30 Bisacodyl (Dulcolax) 5 mg DAILY PRN PO .CONSTIPATION; Start 01/30/19 at 06:30 Heparin Sodium (Porcine) (Heparin (5000 Units/1ml)) 5,000 unit Q12 SC Last ad ministered on 01/30/19 09:01; Admin Dose 5,000 UNIT; Start 01/30/19 at 09:00 Hydromorphone HCl (Dilaudid) 1 mg Q4 PRN IV pain Last administered on 01/30/19 13:41; Admin Dose 1 MG; Start 01/30/19 at 08:00 Ondansetron HCl (Zofran Inj) 4 mg Q6H PRN IV NAUSEA AND/OR VOMITING Last administered on 01/30/19 12:16; Admin Dose 4 MG; Start 01/30/19 at 12:00 Metoclopramide HCl (Reglan) 5 mg Q6 IV Last administered on 01/30/19 12:43; Admin Dose 5 MG; Start 01/30/19 at 13:00; Stop 02/01/19 at 12:59 Ipratropium [place] (Atrovent 0.02% (Neb)) 0.5 mg Q4H RESP THERAPY PRN HHN SHORTNESS OF BREATH; Start 01/30/19 at 12:00 Heparin Sodium (Porcine) (Heparin (1000 Units/ml)) 4,000 unit AFTER DIALYSIS CATHETER ; Start 01/30/19 at 13:00 Albumin Human 100 ml @ 100 mls/hr WITH DIALYSIS PRN IV SBP <90 DURING DIALYSI S; Start 01/30/19 at 13:00 Sodium Chloride (NS) -To prime the dialy... DIRECTED FOR HD PRN IV HD; Start 01/30/19 at 13:00 Hydralazine HCl (Apresoline) 10 mg Q6H PRN IV SBP>160 Last administered on at 14:09; Admin Dose 10 MG; Start 01/30/19 at 14:30 Nicardipine HCl 200 ml @ 50 mls/hr TITRATE IV Last administered on 01/30/19at 16:15; Admin Dose 50 MLS/HR; Start 01/30/19 at 16:30 Levalbuterol (Xopenex Neb) 0.63 mg Q6H RESP THERAPY HHN ; Start 01/30/19 at 20:00 Aspirin (Halfprin) 81 mg DAILY PO ; Start 01/31/19 at 09:00 Carvedilol (Coreg) 50 mg Q12 PO ; Start 01/30/19 at 21:00 Clonidine (Catapres) 0.1 mg TID PO ; Start 01/30/19 at 17:30 Hydroxychloroquine Sulfate (Plaquenil) 200 mg DAILY PO ; Start 01/31/19 at 09:00 Hydroxyzine HCl (Atarax) 50 mg Q8H PRN PO ITCHING; Start 01/30/19 at 17:00 Lorazepam (Ativan) 1 mg TID PRN PO ANXIETY; Start 01/30/19 at 17:00 Mycophenolate Mofetil (Cellcept) 1,000 mg BID PO ; Start 01/30/19 at 21:00 Nifedipine (Procardia Xl) 60 mg BID PO ; Start 01/30/19 at 21:00 Pantoprazole (Protonix Tab) 40 mg DAILY@0600 PO ; Start 01/31/19 at 06:00 Prednisone (Prednisone) 5 mg DAILY PO ; Start 01/31/19 at 09:00 Sertraline HCl (Zoloft) 25 mg DAILY PO ; Start 01/30/19 at 18:00 SERGO MUNOZ MD Jan 30, 2019 17:23
--- NOTE | 2019-01-30 17:54 | HP ---
DATE OF ADMISSION: 01/30/2019 PRESENTING COMPLAINT: Shortness of breath and chest pain that started overnight. HISTORY OF PRESENTING COMPLAINT: Cynthia is very well known to our service from multiple admissions. She is an unfortunate 33-year-old female who has a history of end-stage renal disease secondary to jill pus, difficult to control hypertension and chronic depression, will get hemodialysis on an outpatient basis Tuesdays, and Saturdays, and occasionally on Tuesday. Today is Tuesday and her last dialysis session was on Tuesday. She started having shortness of breath overnight where he finds it difficult to breathe. She started to have chest discomfort. She has also been having occasional co ugh intermittently productive of whitish sputum but she has had no fever. Her last hospitalization w as just a month ago, but prior to that in December, she was also hospitalized and at that time, she h ad undergone a CT scan of the chest. CT scan at that time had shown interval decrease in ground-glas s opacities and septal thickening of the bilateral lungs suggestive of pulmonary edema, mild interval increase in moderate right pleural effusion and stable left pleural effusion. Unchanged cardiomegal y and a small pericardial effusion and no evidence of interstitial lung disease. At this time, she d enies abdominal pain. There has been no passing out episodes. She denies lower extremity swelling. She, however, has been having a lot of nausea and vomiting and this is a typical presentation when s he comes to us but there is no hematemesis or hematochezia or melanotic stools. PAST MEDICAL HISTORY: 1. Hypertension. 2. End-stage renal disease, on hemodialysis. 3. Chronic lupus. 4. Chronic depression. 5. She has had a chronic small pericardial effusion that has remained unchanged on multiple images. The patient is also chronically malnourished with cachexia from chronic disease. PAST SURGICAL HISTORY: She has had the AV fistula placed. ALLERGIES: SHE REPORTS ALLERGIC TO HYDROCODONE. FAMILY HISTORY: Negative for hypertension and diabetes. REVIEW OF SYSTEMS: A 12-point review of systems was done and pertinent findings are as noted in the HPI. HOME MEDICATIONS: Reviewed and reconciled. PHYSICAL EXAMINATION: VITAL SIGNS: Temperature 97.6. Heart rate ranges anywhere between 107 and 120. Blood pressures malgorzata vated, going 70 systolic, 104 diastolic. Saturation on 3 L of oxygen with a nasal cannula and she sa ts recently 93%. GENERAL: The patient is fully alert, able to tell me history but she does look like she is acutely i ll. HEENT: Head is normocephalic. There is no evidence of trauma. Pupils remain equal and reactive. T here is scleral and conjunctival pallor but no scleral icterus. Mucous membranes are slightly dry. NECK: Supple, nontender, without JVD. CHEST: With quite diminished breath sounds bilaterally with coarseness of breath sounds with bibasil ar crackles. ABDOMEN: Flat, soft, nondistended, nontender with normoactive bowel sounds. EXTREMITIES: Extremities show evidence of chronic muscle wasting without edema. NEUROLOGIC: There are no gross focal neurologic deficits. SKIN: Devoid of rash or ecchymosis. LABORATORY VALUES: Today, her WBC count is normal but hemoglobin is low at 8.7 and platelet count is also low at 113. On her chemistry, creatinine 7.99, BUN 46, estimated GFR is 6. Potassium is high at 5.3. Carbon dioxide is low at 20. Glucose is 84. So far, we have 2 negative troponins. The [facility] ie has had an echocardiogram done in this facility before and the last echo was back in October and it showed normal left ventricular size and systolic function with visual estimation of ejection frac tion of 55%, small pericardial effusion and a left-sided pleural effusion. ASSESSMENT: This is a 33-year-old female who has had recurrent hospitalizations for chest pain and s hortness of breath who is here with the same that started a day ago with the followin. Chest pain and shortness of breath, likely secondary to #2. 2. Fluid overload superimposed on a chronic moderate pleural effusion in the right side, rule out un derlying pneumonia, likely secondary to need for hemodialysis. 3. End-stage renal disease, on dialysis 3 to 4 times a week. 4. Chronic lupus. 5. Chronic depression. 6. Chronic cachexia and malnutrition. 7. Thrombocytopenia, likely consumptive. 8. Chronic anemia secondary to end-stage renal disease. 9. Chronic hypertension with suboptimal control. PLAN: The plan at this time is to send for urgent hemodialysis which is what the patient needs. I a m also going to complete ACS rule out and then we will start empiric antibiotics as there is some bro nchial wall thickening and septal edema on imaging and the patient has also been having cough product tiffanie of sputum intermittently. As I mentioned, she keeps getting readmitted for chest discomfort. We will also get the chest ultrasound to see if she needs a thoracentesis. Continue all of the patient 's medications and further intervention will depend on her clinical course. Of note, this patient ju st recently lost her brother from a traumatic brain injury and wants to know if can be discharged by the weekend to attend the . Plan of care has been discussed with the patient and her mother i n detail, all questions have been answered. For further information and interventions, please review the patient's chart. Dictated By: FARHAD LEZAMA MD BA/NTS Conf#: [id number] DID#: [id number] CC: SONY SOTO MD;*EndCC*
[2019-01-30] MEDS: SERTRALINE 50 MG TAB PO SCH (18:28)
[2019-01-30] MEDS: LEVALBUTEROL (NEB) 0.63 MG/3 ML AMP HHN SCH (20:00)
[2019-01-30] MEDS: MYCOPHENOLATE 250 MG CAP PO SCH (21:24)
[2019-01-30] MEDS: NIFEdipine (XL) 60 MG TAB PO SCH (21:25)
[2019-01-31] VITALS (89 sets, daily range): BP systolic 89–138; BP diastolic 59–95; PULSE 85–113; RESP 3–24
[2019-01-31] MEDS: ACETAMINOPHEN 325 MG TAB PO PRN (00:13)
[2019-01-31] MEDS: METOCLOPRAMIDE 10 MG INJ IV SCH ×5 (00:13→23:58)
[2019-01-31] MEDS: LEVALBUTEROL (NEB) 0.63 MG/3 ML AMP HHN SCH ×4 (02:18→21:31)
[2019-01-31] MEDS: HYDROmorphONE 2 MG/ML SYG IV PRN ×5 (03:00→21:18)
[2019-01-31] MEDS: PANTOPRAZOLE (EC) 40 MG TAB PO SCH (05:21)
--- NOTE | 2019-01-31 07:06 | CONS ---
Consult Date/Type/Reason Admit Date/Time Jan 30, 2019 at 20:31 Initial Consult Date 01/30/19 Requesting Provider: FARHAD LEZAMA Date/Time of Note DATE: 01/31/19 TIME: 07:03 Objective Vitals Vital Signs Date Temp Pulse Resp B/P (MAP) Pulse Ox O2 O2 Flow FiO2 Time Delivery Rate 01/31/19 95 12 109/71 100 Nasal 06:00 (84) Cannula 01/31/19 98.7 04:00 01/31/19 5.0 04:00 01/30/19 35 23:00 Intake and Output 01/30/19 01/30/19 01/31/19 1515:00 23:00 07:00 IntakeIntake Total 720 ml 1000 ml OutputOutput Total 3000 ml 0 ml BalanceBalance -2280 ml 1000 ml Results/Medications Result Diagram: 01/31/19 0456 01/31/19 0456 Results 24 hrs Laboratory Tests Test 01/30/19 10:40 01/30/19 15:12 01/30/19 17:00 01/31/19 04:56 Creatine Kinase 24 34 Creatine Kinase Index 1.3 1.6 Creatinine Kinase MB 0.30 0.55 (Mass) Troponin I < 0.012 < 0.012 Bedside Glucose 84 White Blood Count 11.1 #H Red Blood Count 2.74 L Hemoglobin 8.3 L Hematocrit 27.9 L Mean Corpuscular Volume 101.8 H Mean Corpuscular 30.3 Hemoglobin Mean Corpuscular 29.7 L Hemoglobin Concent Red Cell Distribution 16.3 H Width Platelet Count 113 L Mean Platelet Volume 11.5 H Immature Granulocytes % 0.500 H Neutrophils % 83.3 H Lymphocytes % 11.2 L Monocytes % 4.9 Eosinophils % 0.0 Basophils % 0.1 Nucleated Red Blood 0.0 Cells % Immature Granulocytes # 0.060 H Neutrophils # 9.3 H Lymphocytes # 1.2 Monocytes # 0.5 Eosinophils # 0.0 Basophils # 0.0 Nucleated Red Blood 0.0 Cells # Sodium Level 139 Potassium Level 5.5 H Chloride Level 99 Carbon Dioxide Level 28 Anion Gap 12 # Blood Urea Nitrogen 26 #H Creatinine 5.02 #H Est Glomerular Filtrat 10 L Rate mL/min Glucose Level 92 Calcium Level 8.9 Phosphorus Level 7.7 H Magnesium Level 1.9 Total Bilirubin 0.3 Direct Bilirubin 0.00 Indirect Bilirubin 0.3 Aspartate Amino 23 Transf (AST/SGOT) Alanine 7 L Aminotransferase (ALT/SG PT) Alkaline Phosphatase 82 Total Protein 7.6 Albumin 4.0 Globulin 3.60 H Albumin/Globulin Ratio 1.11 Home Meds Active Scripts Aspirin* (Aspirin* (EC)) 81 Mg Tablet., 81 MG PO DAILY, #30 TAB 2 Refills otc Prov:LI GIL MD 01/15/19 Clonidine Hcl* (Catapres*) 0.1 Mg Tablet, 0.1 MG PO TID, #90 TAB Prov:VALERIA PETER NP 12/14/18 Carvedilol* (Carvedilol*) 25 Mg Tablet, 50 MG PO Q12, #60 TAB Prov:JEMMA LEZAMAHannah . 11/23/18 Diphenhydramine Hcl* (Benadryl*) 25 Mg Cap, 25 MG PO Q6 PRN for ITCHING/RASH, #30 TAB Prov:FADY ADAM 11/16/18 Nifedipine (Procardia Xl) 60 Mg Tab.er.24, 60 MG PO BID for 30 Days, #60 TAB 2 Refills Prov:[place]. 10/30/18 Sertraline Hcl* (Sertraline Hcl*) 25 Mg Tablet, 25 MG PO DAILY for anxiety, #30 TAB Prov:J[place]MA [place]AM[place]et [place]. 10/30/18 Hydroxyzine Hcl* (Atarax*) 25 Mg Tab, 50 MG PO Q8H PRN for ITCHING, #30 TAB Prov:J[place]MA [place]ZAM[place]enet [place]. 10/30/18 Pantoprazole* (Pantoprazole*) 40 Mg Tablet., 40 MG PO DAILY, #30 TAB 2 Refills Prov:JEMMA [place]ZAM[place]enet [place]. 10/30/18 Reported Medications Lorazepam* (Lorazepam*) 1 Mg Tablet, 1 MG PO TID PRN for ANXIETY for 14 Days 12/21/18 Temazepam (Restoril) 15 Mg Cap, 15 MG PO QHS PRN for SLEEP for 30 Days 12/21/18 Prednisone* (Prednisone*) 5 Mg Tab, 5 MG PO DAILY, TAB 11/16/18 Mycophenolate Mofetil* (Mycophenolate Mofetil*) 500 Mg Tablet, 1000 MG PO BID, TAB TAKE 2 TABLET BY MOUTH EVERY MORNING AND EVENING 06/30/18 Hydroxychloroquine Sulfate* (Hydroxychloroquine Sulfate*) 200 Mg Tablet, 200 MG PO DAILY, TAB TAKE 1 TAB BY MOUTH EVERY TUESDAY-Tuesday06/30/18 Discontinued Reported Medications Clonidine* (Cmpd) (Catapres SUSP (PEDIATRIC)*) 100 Mcg/Ml Susp, PO TID for 30 Days 12/21/18 Medications Current Medications IV Flush (NS 3 ml) 3 ml PER PROTOCOL IV ; Start 01/30/19 at 06:30 Nitroglycerin (Nitroglycerin (Sl Tab) 0.4 Mg) 1 tab Q5M PRN SL .CHEST PAIN Last administered on 01/30/19 13:35; Admin Dose 1 TAB; Start 01/30/19 at 06:30 Acetaminophen (Tylenol Tab) 650 mg Q6H PRN PO .PAIN 1-3 OR TEMP Last administered on 01/31/19 00:13; Admin Dose 650 MG; Start 01/30/19 at 06:30 Docusate Sodium (Colace) 100 mg Q12H PRN PO .CONSTIPATION; Start 01/30/19 at 06:30 Bisacodyl (Dulcolax) 5 mg DAILY PRN PO .CONSTIPATION; Start 01/30/19 at 06:30 Heparin Sodium (Porcine) (Heparin (5000 Units/1ml)) 5,000 unit Q12 SC Last administered on 01/30/19 21:31; Admin Dose 5,000 UNIT; Start 01/30/19 at 09:00 Hydromorphone HCl (Dilaudid) 1 mg Q4 PRN IV pain Last administered on 01/31/19 03:00; Admin Dose 1 MG; Start 01/30/19 at 08:00 Ondansetron HCl (Zofran Inj) 4 mg Q6H PRN IV NAUSEA AND/OR VOMITING Last administered on 01/30/19 12:16; Admin Dose 4 MG; Start 01/30/19 at 12:00 Metoclopramide HCl (Reglan) 5 mg Q6 IV Last administered on 01/31/19 05:21; Admin Dose 5 MG; Start 01/30/19 at 13:00; Stop 02/01/19 at 12:59 Ipratropium [place] (Atrovent 0.02% (Neb)) 0.5 mg Q4H RESP THERAPY PRN HHN SHORTNESS OF BREATH; Start 01/30/19 at 12:00 Heparin Sodium (Porcine) (Heparin (1000 Units/ml)) 4,000 unit AFTER DIALYSIS CATHETER ; Start 01/30/19 at 13:00 Albumin Human 100 ml @ 100 mls/hr WITH DIALYSIS PRN IV SBP <90 DURING DIALYSIS; Start 01/30/19 at 13:00 Sodium Chloride (NS) -To prime the dialy... DIRECTED FOR HD PRN IV HD; Start 01/30/19 at 13:00 Hydralazine HCl (Apresoline) 10 mg Q6H PRN IV SBP>160 Last administered on 01/30/19at 14:09; Admin Dose 10 MG; Start 01/30/19 at 14:30 Nicardipine HCl 200 ml @ 50 mls/hr TITRATE IV Last administered on 01/30/19at 22:52; Admin Dose 50 MLS/HR; Start 01/30/19 at 16:30 Levalbuterol (Xopenex Neb) 0.63 mg Q6H RESP THERAPY HHN Last administered on 01/31/19at 02:18; Admin Dose 0.63 MG; Start 01/30/19 at 20:00 Aspirin (Halfprin) 81 mg DAILY PO ; Start 01/31/19 at 09:00 Clonidine (Catapres) 0.1 mg TID PO Last administered on 01/30/19at 22:54; Admin Dose 0.1 MG; Start 01/30/19 at 17:30 Hydroxychloroquine Sulfate (Plaquenil) 200 mg DAILY PO ; Start 01/31/19 at 09:00 Hydroxyzine HCl (Atarax) 50 mg Q8H PRN PO ITCHING; Start 01/30/19 at 17:00 Lorazepam (Ativan) 1 mg TID PRN PO ANXIETY; Start 01/30/19 at 17:00 Mycophenolate Mofetil (Cellcept) 1,000 mg BID PO Last administered on 01/30/19at 21:24; Admin Dose 1,000 MG; Start 01/30/19 at 21:00 Nifedipine (Procardia Xl) 60 mg BID PO Last administered on 01/30/19at 21:25; Admin Dose 60 MG; Start 01/30/19 at 21:00 Pantoprazole (Protonix Tab) 40 mg DAILY@0600 PO Last administered on 01/31/19at 05:21; Admin Dose 40 MG; Start 01/31/19 at 06:00 Prednisone (Prednisone) 5 mg DAILY PO ; Start 01/31/19 at 09:00 Sertraline HCl (Zoloft) 25 mg DAILY PO Last administered on 01/30/19at 18:28; Admin Dose 25 MG; Start 01/30/19 at 18:00 Carvedilol (Coreg) 25 mg BID PO Last administered on 01/30/19at 21:30; Admin Dose 25 MG; Start 01/30/19 at 21:00 Assessment/Plan Hospital Course (Demo Recall) 1. Acute hypoxemic respiratory failure secondary to fluid overload and hypertensive urgency 2. Hypertensive urgency 3. Renal failure on dialysis 4. Hyperkalemia 5. History of lupus 6. History of pericardial effusion 7. Diabetes 8. Anemia Recommendations: wean off Cardene drip cont coreg hemodialysis and Fluid removal and management as per renal cont DM control Oxygen supplement will be given as well. Thank you for his referral. We will continue to follow along with you SERGO MUNOZ MD [facility] SERGO MUNOZ MD Jan 31, 2019 07:06
--- NOTE | 2019-01-31 08:38 | CONS ---
Assessment/Plan Assessment/Plan Assessment/Plan (Daily) 1. acute hyperklaemia 2. acute fluid overload 3. HTN urgency 4. ESRD on HD- on 4 times a week HD schedule and Tuesday 5. acute chest pain 6. h/o lupus 7. h/o depression Plan: s/p HD yesterday 2.5 L removed, Plan for HD today and tomorrow also- we will keep pt on , , Tuesday, she is already on 4 times a week HD schedule in HD unit Nifedipine 60mg PO daily, IV hydralazine prn, Renvela 800mg PO TID with meal S/p cardiology consult for chest pain, BP control will follow up Consultation Date/Type/Reason Admit Date/Time Jan 30, 2019 at 20:31 Initial Consult Date 01/30/19 Type of Consult NEPHROLOGY Requesting Provider: FARHAD LEZAMA Date/Time of Note DATE: 01/31/19 TIME: 08:38 24 HR Interval Summary Free Text/Dictation s/p HD yesterday 2.5 L removed, Plan for HD today, afebrile, BP now stable, runs on low side Exam/Review of Systems Exam Vitals Vital Signs Date Temp Pulse Resp B/P (MAP) Pulse Ox O2 O2 Flow FiO2 Time Delivery Rate 01/31/19 85 13 107/64 08:15 (78) 01/31/19 99.5 Nasal 5.0 08:00 Cannula 01/31/19 100 06:00 01/30/19 35 23:00 Intake and Output 01/30/19 01/30/19 01/31/19 1515:00 23:00 07:00 IntakeIntake Total 720 ml 1000 ml OutputOutput Total 3000 ml 0 ml BalanceBalance -2280 ml 1000 ml Exam Constitutional: alert, awake Respiratory: diminished breath sounds Cardiovascular: regular rate and rhythm Gastrointestinal: soft, non-tender Musculoskeletal: nl extremities to inspection, swelling Extremities: normal pulses Neurological: LICENSING REGISTRATION EXAMINER II-XII intact, nl mental status, nl speech, nl strength Results Result Diagram: 01/31/19 0456 01/31/19 0456 Results 24hrs Laboratory Tests Test 01/30/19 10:40 01/30/19 15:12 01/30/19 17:00 01/31/19 04:56 Creatine Kinase 24 34 Creatine Kinase Index 1.3 1.6 Creatinine Kinase MB 0.30 0.55 (Mass) Troponin I < 0.012 < 0.012 Bedside Glucose 84 White Blood Count 11.1 #H Red Blood Count 2.74 L Hemoglobin 8.3 L Hematocrit 27.9 L Mean Corpuscular Volume 101.8 H Mean Corpuscular 30.3 Hemoglobin Mean Corpuscular 29.7 L Hemoglobin Concent Red Cell Distribution 16.3 H Width Platelet Count 113 L Mean Platelet Volume 11.5 H Immature Granulocytes % 0.500 H Neutrophils % 83.3 H Lymphocytes % 11.2 L Monocytes % 4.9 Eosinophils % 0.0 Basophils % 0.1 Nucleated Red Blood 0.0 Cells % Immature Granulocytes # 0.060 H Neutrophils # 9.3 H Lymphocytes # 1.2 Monocytes # 0.5 Eosinophils # 0.0 Basophils # 0.0 Nucleated Red Blood 0.0 Cells # Sodium Level 139 Potassium Level 5.5 H Chloride Level 99 Carbon Dioxide Level 28 Anion Gap 12 # Blood Urea Nitrogen 26 #H Creatinine 5.02 #H Est Glomerular Filtrat 10 L Rate mL/min Glucose Level 92 Calcium Level 8.9 Phosphorus Level 7.7 H Magnesium Level 1.9 Total Bilirubin 0.3 Direct Bilirubin 0.00 Indirect Bilirubin 0.3 Aspartate Amino 23 Transf (AST/SGOT) Alanine 7 L Aminotransferase (ALT/SG PT) Alkaline Phosphatase 82 Total Protein 7.6 Albumin 4.0 Globulin 3.60 H Albumin/Globulin Ratio 1.11 Medications Medication Current Medications IV Flush (NS 3 ml) 3 ml PER PROTOCOL IV ; Start 01/30/19 at 06:30 Nitroglycerin (Nitroglycerin (Sl Tab) 0.4 Mg) 1 tab Q5M PRN SL .CHEST PAIN Last administered on 01/30/19at 13:35; Admin Dose 1 TAB; Start 01/30/19 at 06:30 Acetaminophen (Tylenol Tab) 650 mg Q6H PRN PO .PAIN 1-3 OR TEMP Last administered on 01/31/19at 00:13; Admin Dose 650 MG; Start 01/30/19 at 06:30 Docusate Sodium (Colace) 100 mg Q12H PRN PO .CONSTIPATION; Start 01/30/19 at 06:30 Bisacodyl (Dulcolax) 5 mg DAILY PRN PO .CONSTIPATION; Start 01/30/19 at 06:30 Heparin Sodium (Porcine) (Heparin (5000 Units/1ml)) 5,000 unit Q12 SC Last administered on 01/30/19at 21:31; Admin Dose 5,000 UNIT; Start 01/30/19 at 09:00 Hydromorphone HCl (Dilaudid) 1 mg Q4 PRN IV pain Last administered on 01/31/19 07:04; Admin Dose 1 MG; Start 01/30/19 at 08:00 Ondansetron HCl (Zofran Inj) 4 mg Q6H PRN IV NAUSEA AND/OR VOMITING Last administered on 01/30/19 12:16; Admin Dose 4 MG; Start 01/30/19 at 12:00 Metoclopramide HCl (Reglan) 5 mg Q6 IV Last administered on 01/31/19 05:21; Admin Dose 5 MG; Start 01/30/19 at 13:00; Stop 02/01/19 at 12:59 Ipratropium [place] (Atrovent 0.02% (Neb)) 0.5 mg Q4H RESP THERAPY PRN HHN SHORTNESS OF BREATH; Start 01/30/19 at 12:00 Heparin Sodium (Porcine) (Heparin (1000 Units/ml)) 4,000 unit AFTER DIALYSIS CATHETER ; Start 01/30/19 at 13:00 Albumin Human 100 ml @ 100 mls/hr WITH DIALYSIS PRN IV SBP <90 DURING DIALYSIS; Start 01/30/19 at 13:00 Sodium Chloride (NS) -To prime the dialy... DIRECTED FOR HD PRN IV HD; Start 01/30/19 at 13:00 Hydralazine HCl (Apresoline) 10 mg Q6H PRN IV SBP>160 Last administered on 01/30/19at 14:09; Admin Dose 10 MG; Start 01/30/19 at 14:30 Nicardipine HCl 200 ml @ 50 mls/hr TITRATE IV Last administered on 01/30/19at 22:52; Admin Dose 50 MLS/HR; Start 01/30/19 at 16:30 Levalbuterol (Xopenex Neb) 0.63 mg Q6H RESP THERAPY HHN Last administered on 01/31/19 02:18; Admin Dose 0.63 MG; Start 01/30/19 at 20:00 Aspirin (Halfprin) 81 mg DAILY PO ; Start 01/31/19 at 09:00 Clonidine (Catapres) 0.1 mg TID PO Last administered on 01/30/19at 22:54; Admin Dose 0.1 MG; Start 01/30/19 at 17:30 Hydroxychloroquine Sulfate (Plaquenil) 200 mg DAILY PO ; Start 01/31/19 at 09:00 Hydroxyzine HCl (Atarax) 50 mg Q8H PRN PO ITCHING; Start 01/30/19 at 17:00 Lorazepam (Ativan) 1 mg TID PRN PO ANXIETY; Start 01/30/19 at 17:00 Mycophenolate Mofetil (Cellcept) 1,000 mg BID PO Last administered on 01/30/19at 21:24; Admin Dose 1,000 MG; Start 01/30/19 at 21:00 Nifedipine (Procardia Xl) 60 mg BID PO Last administered on 01/30/19at 21:25; Admin Dose 60 MG; Start 01/30/19 at 21:00 Pantoprazole (Protonix Tab) 40 mg DAILY@0600 PO Last administered on 01/31/19at 05:21; Admin Dose 40 MG; Start 01/31/19 at 06:00 Prednisone (Prednisone) 5 mg DAILY PO ; Start 01/31/19 at 09:00 Sertraline HCl (Zoloft) 25 mg DAILY PO Last administered on 01/30/19at 18:28; Admin Dose 25 MG; Start 01/30/19 at 18:00 Carvedilol (Coreg) 25 mg BID PO Last administered on 01/30/19at 21:30; Admin Dose 25 MG; Start 01/30/19 at 21:00 ARTURO AMADOR MD Jan 31, 2019 08:38
[2019-01-31] MEDS: NIFEdipine (XL) 60 MG TAB PO SCH (09:00)
[2019-01-31] MEDS: MYCOPHENOLATE 250 MG CAP PO SCH ×2 (09:04→21:18)
[2019-01-31] MEDS: SERTRALINE 50 MG TAB PO SCH (09:05)
[2019-01-31] MEDS: ASPIRIN (EC) 81 MG TAB PO SCH (09:05)
[2019-01-31] MEDS: predniSONE 5 MG TAB PO SCH (09:09)
[2019-01-31] MEDS: HYDROXYCHLOROQUINE 200 MG TAB PO SCH (09:09)
[2019-01-31] MEDS: HEPARIN 5,000 UNIT/1 ML VIAL SC SCH ×2 (09:20→21:21)
--- NOTE | 2019-01-31 10:10 | PN ---
Date/Time of Note Date/Time of Note DATE: 01/31/19 TIME: 10:09 Assessment/Plan VTE Prophylaxis Risk score (from Nsg)>0 risk: 1 SCD applied (from Nsg): Yes Pharmacological prophylaxis: heparin Lines/Catheters IV Catheter Type (from Nrsg): Peripheral IV Urinary Cath still in place: No Assessment/Plan Hospital Course S: feels much better, no more CP, sob or anxiety, off nicardipine GTT GENERAL: The patient is fully alert, no distress HEENT: Head is normocephalic. There is no evidence of trauma. Pupils remain equal and reactive. There is scleral and conjunctival pallor but no scleral icterus. Mucous membranes are slightly dry. NECK: Supple, nontender, without JVD. CHEST: still diminished breath sounds bilaterally ABDOMEN: Flat, soft, nondistended, nontender with normoactive bowel sounds. EXTREMITIES: Extremities show evidence of chronic muscle wasting without edema. NEUROLOGIC: There are no gross focal neurologic deficits. SKIN: Devoid of rash or ecchymosis. ASSESSMENT: This is a 33-year-old female who has had recurrent hospitalizations for chest pain and shortness of breath who is here with the same that started a day ago with the followin. Chest pain and shortness of breath, likely secondary to #2. 2. Fluid overload superimposed on a chronic moderate pleural effusion in the right side, rule out underlying pneumonia, likely secondary to need for hemodialysis. -repeat chest USS showed minimal pleural effusion 3. End-stage renal disease, on dialysis 3 to 4 times a week. 4. Chronic lupus. 5. Chronic depression. 6. Chronic cachexia and malnutrition. 7. Thrombocytopenia, likely consumptive. 8. Chronic anemia secondary to end-stage renal disease. 9. Chronic hypertension : well controlled now PLAN: continue current meds, transfer out of ICU, possible d/c in am if she remains stable Result Diagram: 01/31/19 0456 01/31/19 0456 Results 24hrs Laboratory Tests Test 01/30/19 10:40 01/30/19 15:12 01/30/19 17:00 01/31/19 04:56 Creatine Kinase 24 34 Creatine Kinase Index 1.3 1.6 Creatinine Kinase MB 0.30 0.55 (Mass) Troponin I < 0.012 < 0.012 Bedside Glucose 84 White Blood Count 11.1 #H Red Blood Count 2.74 L Hemoglobin 8.3 L Hematocrit 27.9 L Mean Corpuscular Volume 101.8 H Mean Corpuscular 30.3 Hemoglobin Mean Corpuscular 29.7 L Hemoglobin Concent Red Cell Distribution 16.3 H Width Platelet Count 113 L Mean Platelet Volume 11.5 H Immature Granulocytes % 0.500 H Neutrophils % 83.3 H Lymphocytes % 11.2 L Monocytes % 4.9 Eosinophils % 0.0 Basophils % 0.1 Nucleated Red Blood 0.0 Cells % Immature Granulocytes # 0.060 H Neutrophils # 9.3 H Lymphocytes # 1.2 Monocytes # 0.5 Eosinophils # 0.0 Basophils # 0.0 Nucleated Red Blood 0.0 Cells # Sodium Level 139 Potassium Level 5.5 H Chloride Level 99 Carbon Dioxide Level 28 Anion Gap 12 # Blood Urea Nitrogen 26 #H Creatinine 5.02 #H Est Glomerular Filtrat 10 L Rate mL/min Glucose Level 92 Calcium Level 8.9 Phosphorus Level 7.7 H Magnesium Level 1.9 Total Bilirubin 0.3 Direct Bilirubin 0.00 Indirect Bilirubin 0.3 Aspartate Amino 23 Transf (AST/SGOT) Alanine 7 L Aminotransferase (ALT/SG PT) Alkaline Phosphatase 82 Total Protein 7.6 Albumin 4.0 Globulin 3.60 H Albumin/Globulin Ratio 1.11 Exam/Review of Systems Exam Vitals Vital Signs Date Temp Pulse Resp B/P (MAP) Pulse Ox O2 O2 Flow FiO2 Time Delivery Rate 01/31/19 94 16 99/66 (77) 09:15 01/31/19 100 Nasal 3.0 09:00 Cannula 01/31/19 99.5 08:00 01/30/19 35 23:00 Intake and Output 01/30/19 01/30/19 01/31/19 1515:00 23:00 07:00 IntakeIntake Total 720 ml 1000 ml OutputOutput Total 3000 ml 0 ml BalanceBalance -2280 ml 1000 ml Results Results 24hrs Laboratory Tests Test 01/30/19 10:40 01/30/19 15:12 01/30/19 17:00 01/31/19 04:56 Creatine Kinase 24 34 Creatine Kinase Index 1.3 1.6 Creatinine Kinase MB 0.30 0.55 (Mass) Troponin I < 0.012 < 0.012 Bedside Glucose 84 White Blood Count 11.1 #H Red Blood Count 2.74 L Hemoglobin 8.3 L Hematocrit 27.9 L Mean Corpuscular Volume 101.8 H Mean Corpuscular 30.3 Hemoglobin Mean Corpuscular 29.7 L Hemoglobin Concent Red Cell Distribution 16.3 H Width Platelet Count 113 L Mean Platelet Volume 11.5 H Immature Granulocytes % 0.500 H Neutrophils % 83.3 H Lymphocytes % 11.2 L Monocytes % 4.9 Eosinophils % 0.0 Basophils % 0.1 Nucleated Red Blood 0.0 Cells % Immature Granulocytes # 0.060 H Neutrophils # 9.3 H Lymphocytes # 1.2 Monocytes # 0.5 Eosinophils # 0.0 Basophils # 0.0 Nucleated Red Blood 0.0 Cells # Sodium Level 139 Potassium Level 5.5 H Chloride Level 99 Carbon Dioxide Level 28 Anion Gap 12 # Blood Urea Nitrogen 26 #H Creatinine 5.02 #H Est Glomerular Filtrat 10 L Rate mL/min Glucose Level 92 Calcium Level 8.9 Phosphorus Level 7.7 H Magnesium Level 1.9 Total Bilirubin 0.3 Direct Bilirubin 0.00 Indirect Bilirubin 0.3 Aspartate Amino 23 Transf (AST/SGOT) Alanine 7 L Aminotransferase (ALT/SG PT) Alkaline Phosphatase 82 Total Protein 7.6 Albumin 4.0 Globulin 3.60 H Albumin/Globulin Ratio 1.11 Medications Medication Current Medications IV Flush (NS 3 ml) 3 ml PER PROTOCOL IV ; Start 01/30/19 at 06:30 Nitroglycerin (Nitroglycerin (Sl Tab) 0.4 Mg) 1 tab Q5M PRN SL .CHEST PAIN Last administered on 01/30/19at 13:35; Admin Dose 1 TAB; Start 01/30/19 at 06:30 Acetaminophen (Tylenol Tab) 650 mg Q6H PRN PO .PAIN 1-3 OR TEMP Last administered on 01/31/19at 00:13; Admin Dose 650 MG; Start 01/30/19 at 06:30 Docusate Sodium (Colace) 100 mg Q12H PRN PO .CONSTIPATION; Start 01/30/19 at 06:30 Bisacodyl (Dulcolax) 5 mg DAILY PRN PO .CONSTIPATION; Start 01/30/19 at 06:30 Heparin Sodium (Porcine) (Heparin (5000 Units/1ml)) 5,000 unit Q12 SC Last administered on 01/31/19at 09:20; Admin Dose 5,000 UNIT; Start 01/30/19 at 09:00 Hydromorphone HCl (Dilaudid) 1 mg Q4 PRN IV pain Last administered on 01/31/19 07:04; Admin Dose 1 MG; Start 01/30/19 at 08:00 Ondansetron HCl (Zofran Inj) 4 mg Q6H PRN IV NAUSEA AND/OR VOMITING Last administered on 01/30/19 12:16; Admin Dose 4 MG; Start 01/30/19 at 12:00 Metoclopramide HCl (Reglan) 5 mg Q6 IV Last administered on 01/31/19 05:21; Admin Dose 5 MG; Start 01/30/19 at 13:00; Stop 02/01/19 at 12:59 Ipratropium [place] (Atrovent 0.02% (Neb)) 0.5 mg Q4H RESP THERAPY PRN HHN SHORTNESS OF BREATH; Start 01/30/19 at 12:00 Heparin Sodium (Porcine) (Heparin (1000 Units/ml)) 4,000 unit AFTER DIALYSIS CATHETER ; Start 01/30/19 at 13:00 Albumin Human 100 ml @ 100 mls/hr WITH DIALYSIS PRN IV SBP <90 DURING DIALYSIS; Start 01/30/19 at 13:00 Sodium Chloride (NS) -To prime the dialy... DIRECTED FOR HD PRN IV HD; Start 01/30/19 at 13:00 Hydralazine HCl (Apresoline) 10 mg Q6H PRN IV SBP>160 Last administered on 01/30/19 14:09; Admin Dose 10 MG; Start 01/30/19 at 14:30 Nicardipine HCl 200 ml @ 50 mls/hr TITRATE IV Last administered on 01/30/19 22:52; Admin Dose 50 MLS/HR; Start 01/30/19 at 16:30 Levalbuterol (Xopenex Neb) 0.63 mg Q6H RESP THERAPY HHN Last administered on 01/31/19 08:53; Admin Dose 0.63 MG; Start 01/30/19 at 20:00 Aspirin (Halfprin) 81 mg DAILY PO Last administered on 01/31/19 09:05; Admin Dose 81 MG; Start 01/31/19 at 09:00 Clonidine (Catapres) 0.1 mg TID PO Last administered on 01/30/19 22:54; Admin Dose 0.1 MG; Start 01/30/19 at 17:30 Hydroxychloroquine Sulfate (Plaquenil) 200 mg DAILY PO Last administered on 01/31/19 09:09; Admin Dose 200 MG; Start 01/31/19 at 09:00 Hydroxyzine HCl (Atarax) 50 mg Q8H PRN PO ITCHING; Start 01/30/19 at 17:00 Lorazepam (Ativan) 1 mg TID PRN PO ANXIETY; Start 01/30/19 at 17:00 Mycophenolate Mofetil (Cellcept) 1,000 mg BID PO Last administered on 01/31/19 09:04; Admin Dose 1,000 MG; Start 01/30/19 at 21:00 Nifedipine (Procardia Xl) 60 mg BID PO Last administered on 01/30/19 21:25; Admin Dose 60 MG; Start 01/30/19 at 21:00 Pantoprazole (Protonix Tab) 40 mg DAILY@0600 PO Last administered on 01/31/19 05:21; Admin Dose 40 MG; Start 01/31/19 at 06:00 Prednisone (Prednisone) 5 mg DAILY PO Last administered on 01/31/19 09:09; Admin Dose 5 MG; Start 01/31/19 at 09:00 Sertraline HCl (Zoloft) 25 mg DAILY PO Last administered on 01/31/19 09:05; Admin Dose 25 MG; Start 01/30/19 at 18:00 Carvedilol (Coreg) 25 mg BID PO Last administered on 01/30/19 21:30; Admin Dose 25 MG; Start 01/30/19 at 21:00 FARHAD LEZAMA Jan 31, 2019 10:10
[2019-01-31] MEDS: hydrOXYzine HCL 25 MG TAB PO PRN ×2 (13:46→22:03)
[2019-01-31] MEDS ORDERED: METHYLPREDNISOLONE 125 MG INJ IV ONE (15:00)
[2019-01-31] MEDS ORDERED: VANCOMYCIN IV PER PHARMACY XX SCH (17:00)
[2019-01-31] MEDS: SEVELAMER CARBONATE 800 MG TABLET PO SCH (17:36)
[2019-01-31] MEDS ORDERED: CEFEPIME 1GM/50 ML (PMX) 50 ML IVPB SCH (21:00)
[2019-01-31] MEDS ORDERED: VANCOMYCIN 1 GM 250 ML IVPB SCH (22:00)
[2019-02-01] VITALS (30 sets, daily range): BP systolic 119–156; BP diastolic 76–105; PULSE 80–101; RESP 6–21
[2019-02-01] MEDS: HYDROmorphONE 2 MG/ML SYG IV PRN ×4 (01:48→15:08)
[2019-02-01] MEDS: LEVALBUTEROL (NEB) 0.63 MG/3 ML AMP HHN SCH ×3 (02:02→16:29)
[2019-02-01] MEDS: PANTOPRAZOLE (EC) 40 MG TAB PO SCH (06:21)
[2019-02-01] MEDS: METOCLOPRAMIDE 10 MG INJ IV SCH ×2 (06:21→14:05)
[2019-02-01] MEDS: SEVELAMER CARBONATE 800 MG TABLET PO SCH ×2 (08:00→14:05)
--- NOTE | 2019-02-01 08:21 | RADRPT ---
Echocardiogram Report Patient Name: HUMERA THOMASPatient ID: [id number] : 1985 (33y 11m)Study Date: 01/31/2019 8:08:31 AM Gender: FAccession #: [id number] Tech: LE Location: Ref.Physician: SERGO RODRIGUEZ Height(Cm): BSA: Weight(Kg): Quality: GoodAccount #: Procedures: Echocardiographic Report: Transthoracic echocardiogram with complete 2D, M-Mode, and doppler examination. Indications: Pericardial Effusion. Measurements: 2D/M Mode Doppler Measurement Value Normal Range Measurement Value Normal Range LVIDd 2D 5.0 [ 3.8 - 5.2 ] cm AMBER Vmax 2.1 [ 2.0 - 4.0 ] cm2 LVIDs 2D 3.7 [ 2.2 - 3.5 ] cm AV Mean Harish 1.2 [ 70.0 - 90.0 ] cm/sec LVPWd 2D 1.1 [ 0.6 - 0.9 ] cm AV Mean PG 6.0 [ 2.0 - 4.0 ] mmHg IVSd 2D 1.1 [ 0.6 - 0.9 ] cm AV Peak Harish 1.5 [ 100.0 - 170.0 ] cm/sec IVS/LVPW 2D 1.0 ratio AV Peak PG 9.0 [ 2.0 - 9.0 ] mmHg AoR Diam 2D 2.7 [ 2.3 - 3.1 ] cm AV VTI 25.5 cm ACS 2D 1.8 [ 2.7 - 3.3 ] cm LVOT Peak Harish 1.1 [ 70.0 - 110.0 ] cm/sec LA/Ao 2D 1 ratio LVOT Peak PG 5.0 [ 2.0 - 6.0 ] mmHg EF 2D 50.0 [ 54.0 - 74.0 ] percent MV E Peak Harish 1.1 [ 60.0 - 130.0 ] cm/sec LA Dimen 2D 3.5 [ 2.7 - 3.8 ] cm MV A Peak Harish 0.7 [ 100.0 - 120.0 ] cm/sec LVOT Diam 1.9 [ 2.1 - 2.5 ] cm MV E/A 1.6 [ 0.8 - 1.5 ] ratio LVOT Area 2.8 cm2 MV Decel Time 215 [ 104 - 258 ] msec Lat E` Harish 0.1 [ 10.0 - 15.0 ] cm/sec Med E` Harish 0.1 cm/sec MV E/A 1.6 [ 0.8 - 1.5 ] ratio TR Peak Harish 2.3 [ 100.0 - 280.0 ] cm/sec TR Peak PG 21.0 mmHg PV Peak Harish 0.8 [ 40.0 - 80.0 ] cm/sec PV Peak PG 3.0 mmHg Findings: Left Ventricle: Normal left ventricular systolic function. Normal left ventricular cavity size. Ejection fraction is visually estimated at 50-55 %. Tissue Doppler/Mitral Doppler indices are within normal limits. Right Ventricle: Normal right ventricular size. Normal right ventricular systolic function. Left Atrium: The left atrium is normal in size. Right Atrium: The right atrium is normal in size. Mitral Valve: Mild mitral annular calcification. Mild mitral valve regurgitation. Aortic Valve: Normal appearance of the aortic valve. No significant aortic stenosis or insufficiency. Tricuspid Valve: Normal appearance of the tricuspid valve. Estimated peak PA systolic pressure 25 mmHg. There is trace tricuspid regurgitation. Pulmonic Valve: Normal pulmonic valve appearance. There is mild to moderate pulmonic regurgitation. Pericardium: Small pericardial effusion. No pleural effusion noted. Aorta: Normal aortic root. IVC: Normal size and normal respiratory collapse consistent with normal right atrial pressure. Conclusions: Normal left ventricular systolic function. Normal left ventricular cavity size. Ejection fraction is visually estimated at 50-55 %. Tissue Doppler/Mitral Doppler indices are within normal limits. Mild mitral annular calcification. Mild mitral valve regurgitation. Normal appearance of the aortic valve. No significant aortic stenosis or insufficiency. Normal appearance of the tricuspid valve. Estimated peak PA systolic pressure 25 mmHg. There is trace tricuspid regurgitation. Small pericardial effusion. No pleural effusion noted. Electronically Signed By: Sergo Rodriguez 2019-02-01 08:20:52 PDT
[2019-02-01] MEDS: HYDROXYCHLOROQUINE 200 MG TAB PO SCH (08:28)
[2019-02-01] MEDS: ASPIRIN (EC) 81 MG TAB PO SCH (08:29)
[2019-02-01] MEDS: SERTRALINE 50 MG TAB PO SCH (08:36)
[2019-02-01] MEDS: HEPARIN 5,000 UNIT/1 ML VIAL SC SCH (08:41)
[2019-02-01] MEDS ORDERED: NIFEdipine (XL) 60 MG TAB PO SCH (09:00)
--- NOTE | 2019-02-01 09:54 | CONS ---
Consult Date/Type/Reason Admit Date/Time Jan 30, 2019 at 20:31 Initial Consult Date 01/30/19 Requesting Provider: FARHAD LEZAMA Date/Time of Note DATE: 02/01/19 TIME: 09:51 Subjective Interventional cardiology follow-up progress note Subjective: Discussed with the staff. Patient is off of ICU in the floor Status post hemodialysis now. No chest pain no shortness of breath. Breathing is much better now. She continues to be hypertensive though Objective: General: no acute distress HEENT: NC/AT. pupils are equal. round. NECK: NO JVD. no stridor. CV: RRR. systolic murmur; no gallop or rubs. PULM: no wheezing or rhonchi. GI: SOFT, NT, ND, no rebound or guarding Extremity: trace B/L LE edema. no clubbing. neuro: awake and alert, OX3. Psych: calm and pleasant rectal: deferred Vascular: Left hemodialysis access in place with AV shunt Echocardiogram was personally reviewed which shows: Normal left ventricular systolic function. Normal left ventricular cavity size. Ejection fraction is visually estimated at 50-55 %. Tissue Doppler/Mitral Doppler indices are within normal limits. Mild mitral annular calcification. Mild mitral valve regurgitation. Normal appearance of the aortic valve. No significant aortic stenosis or insufficiency. Normal appearance of the tricuspid valve. Estimated peak PA systolic pressure 25 mmHg. There is trace tricuspid regurgitation. Small pericardial effusion. No pleural effusion noted. Objective Vitals Vital Signs Date Temp Pulse Resp B/P (MAP) Pulse Ox O2 O2 Flow FiO2 Time Delivery Rate 02/01/19 97.9 91 18 148/89 98 Room Air 08:00 (108) 02/01/19 2.0 04:00 01/30/19 35 23:00 Intake and Output 01/31/19 01/31/19 02/01/19 1515:00 23:00 07:00 IntakeIntake Total 728 ml 955 ml 405 ml OutputOutput Total 0 ml 400 ml 0 ml BalanceBalance 728 ml 555 ml 405 ml Results/Medications Result Diagram: 01/31/19 0456 02/01/19 0448 Results 24 hrs Laboratory Tests Test 02/01/19 04:48 Sodium Level 139 Potassium Level 5.1 Chloride Level 97 Carbon Dioxide Level 27 Anion Gap 15 H Blood Urea Nitrogen 22 H Creatinine 3.71 #H Est Glomerular Filtrat Rate mL/min 14 L Glucose Level 106 Calcium Level 9.5 Magnesium Level 2.1 Home Meds Active Scripts Aspirin* (Aspirin* (EC)) 81 Mg Tablet., 81 MG PO DAILY, #30 TAB 2 Refills otc Prov:LI GIL MD 01/15/19 Clonidine Hcl* (Catapres*) 0.1 Mg Tablet, 0.1 MG PO TID, #90 TAB Prov:VALERIA PETER NP 12/14/18 Carvedilol* (Carvedilol*) 25 Mg Tablet, 50 MG PO Q12, #60 TAB Prov:JEMMA LEZAMAHannah . 11/23/18 Diphenhydramine Hcl* (Benadryl*) 25 Mg Cap, 25 MG PO Q6 PRN for ITCHING/RASH, #30 TAB Prov:FADY ADAM 11/16/18 Nifedipine (Procardia Xl) 60 Mg Tab.er.24, 60 MG PO BID for 30 Days, #60 TAB 2 Refills Prov:FARHAD LEZAMA Fabrizio 10/30/18 Sertraline Hcl* (Sertraline Hcl*) 25 Mg Tablet, 25 MG PO DAILY for anxiety, #30 TAB Prov:[facility] 10/30/18 Hydroxyzine Hcl* (Atarax*) 25 Mg Tab, 50 MG PO Q8H PRN for ITCHING, #30 TAB Prov:LISEJEMMAHannah . 10/30/18 Pantoprazole* (Pantoprazole*) 40 Mg Tablet., 40 MG PO DAILY, #30 TAB 2 Refills Prov:LISEFARHAD Fabrizio 10/30/18 Reported Medications Lorazepam* (Lorazepam*) 1 Mg Tablet, 1 MG PO TID PRN for ANXIETY for 14 Days 12/21/18 Temazepam (Restoril) 15 Mg Cap, 15 MG PO QHS PRN for SLEEP for 30 Days 12/21/18 Prednisone* (Prednisone*) 5 Mg Tab, 5 MG PO DAILY, TAB 11/16/18 Mycophenolate Mofetil* (Mycophenolate Mofetil*) 500 Mg Tablet, 1000 MG PO BID, TAB TAKE 2 TABLET BY MOUTH EVERY MORNING AND EVENING 06/30/18 Hydroxychloroquine Sulfate* (Hydroxychloroquine Sulfate*) 200 Mg Tablet, 200 MG PO DAILY, TAB TAKE 1 TAB BY MOUTH EVERY TUESDAY-Tuesday06/30/18 Discontinued Reported Medications Clonidine* (Cmpd) (Catapres SUSP (PEDIATRIC)*) 100 Mcg/Ml Susp, PO TID for 30 Days 12/21/18 Medications Current Medications IV Flush (NS 3 ml) 3 ml PER PROTOCOL IV ; Start 01/30/19 at 06:30 Nitroglycerin (Nitroglycerin (Sl Tab) 0.4 Mg) 1 tab Q5M PRN SL .CHEST PAIN Last administered on 01/30/19 13:35; Admin Dose 1 TAB; Start 01/30/19 at 06:30 Acetaminophen (Tylenol Tab) 650 mg Q6H PRN PO .PAIN 1-3 OR TEMP Last administered on 01/31/19 00:13; Admin Dose 650 MG; Start 01/30/19 at 06:30 Docusate Sodium (Colace) 100 mg Q12H PRN PO .CONSTIPATION; Start 01/30/19 at 06:30 Bisacodyl (Dulcolax) 5 mg DAILY PRN PO .CONSTIPATION; Start 01/30/19 at 06:30 Heparin Sodium (Porcine) (Heparin (5000 Units/1ml)) 5,000 unit Q12 SC Last administered on 02/01/19 08:41; Admin Dose 5,000 UNIT; Start 01/30/19 at 09:00 Hydromorphone HCl (Dilaudid) 1 mg Q4 PRN IV pain Last administered on 02/01/19 06:21; Admin Dose 1 MG; Start 01/30/19 at 08:00 Ondansetron HCl (Zofran Inj) 4 mg Q6H PRN IV NAUSEA AND/OR VOMITING Last administered on 01/30/19 12:16; Admin Dose 4 MG; Start 01/30/19 at 12:00 Metoclopramide HCl (Reglan) 5 mg Q6 IV Last administered on 02/01/19 06:21; Admin Dose 5 MG; Start 01/30/19 at 13:00; Stop 02/01/19 at 12:59 Ipratropium [place] (Atrovent 0.02% (Neb)) 0.5 mg Q4H RESP THERAPY PRN HHN SHORTNESS OF BREATH Last administered on 01/31/19 21:29; Admin Dose 0.5 MG; Start 01/30/19 at 12:00 Heparin Sodium (Porcine) (Heparin (1000 Units/ml)) 4,000 unit AFTER DIALYSIS CATHETER ; Start 01/30/19 at 13:00 Albumin Human 100 ml @ 100 mls/hr WITH DIALYSIS PRN IV SBP <90 DURING DIALYS IS; Start 01/30/19 at 13:00 Sodium Chloride (NS) -To prime the dialy... DIRECTED FOR HD PRN IV HD; Start 01/30/19 at 13:00 Hydralazine HCl (Apresoline) 10 mg Q6H PRN IV SBP>160 Last administered on 01/30/19 14:09; Admin Dose 10 MG; Start 01/30/19 at 14:30 Nicardipine HCl 200 ml @ 50 mls/hr TITRATE IV Last administered on 01/30/19 22:52; Admin Dose 50 MLS/HR; Start 01/30/19 at 16:30 Levalbuterol (Xopenex Neb) 0.63 mg Q6H RESP THERAPY HHN Last administered on 02/01/19 02:02; Admin Dose 0.63 MG; Start 01/30/19 at 20:00 Aspirin (Halfprin) 81 mg DAILY PO Last administered on 02/01/19 08:29; Admin Dose 81 MG; Start 01/31/19 at 09:00 Clonidine (Catapres) 0.1 mg TID PO Last administered on 01/31/19 21:19; Admin Dose 0.1 MG; Start 01/30/19 at 17:30 Hydroxychloroquine Sulfate (Plaquenil) 200 mg DAILY PO Last administered on 02/01/19 08:28; Admin Dose 200 MG; Start 01/31/19 at 09:00 Hydroxyzine HCl (Atarax) 50 mg Q8H PRN PO ITCHING Last administered on 01/31/19 22:03; Admin Dose 50 MG; Start 01/30/19 at 17:00 Lorazepam (Ativan) 1 mg TID PRN PO ANXIETY; Start 01/30/19 at 17:00 Mycophenolate Mofetil (Cellcept) 1,000 mg BID PO Last administered on 01/31/19 21:18; Admin Dose 1,000 MG; Start 01/30/19 at 21:00 Pantoprazole (Protonix Tab) 40 mg DAILY@0600 PO Last administered on 02/01/19 06:21; Admin Dose 40 MG; Start 01/31/19 at 06:00 Prednisone (Prednisone) 5 mg DAILY PO Last administered on 01/31/19 09:09; Admin Dose 5 MG; Start 01/31/19 at 09:00 Sertraline HCl (Zoloft) 25 mg DAILY PO Last administered on 02/01/19 08:36; Admin Dose 25 MG; Start 01/30/19 at 18:00 Carvedilol (Coreg) 25 mg BID PO Last administered on 01/31/19 21:19; Admin Dose 25 MG; Start 01/30/19 at 21:00 Sevelamer Carbonate (Renvela) 800 mg WITH MEALS PO Last administered on 01/31/19 17:36; Admin Dose 800 MG; Start 01/31/19 at 17:35 Cefepime HCl 50 ml @ 100 mls/hr Q24H IVPB Last administered on 01/31/19 21:18; Admin Dose 100 MLS/HR; Start 01/31/19 at 21:00 Vancomycin HCl (Vanco Iv Per Pharmacy) VANCOMYCIN PER PHARMACY PER PROTOCOL XX ; Start 01/31/19 at 17:00 Nifedipine (Procardia Xl) 60 mg DAILY PO ; Start 02/01/19 at 09:00 Assessment/Plan Hospital Course (Demo Recall) 1. Acute hypoxemic respiratory failure secondary to fluid overload and hypertensive urgency 2. Hypertensive urgency 3. Renal failure on dialysis 4. Hyperkalemia 5. History of lupus 6. History of pericardial effusion 7. Diabetes 8. Anemia Recommendations: off Cardene drip cont coreg and increase as needed/tolerated hemodialysis and Fluid removal and management as per renal cont DM control Oxygen supplement will be given as well. Thank you for his referral. We will continue to follow along with you SERGO MUNOZ MD [facility] SERGO MUNOZ MD Feb 01, 2019 09:54
[2019-02-01] MEDS: predniSONE 5 MG TAB PO SCH (10:03)
[2019-02-01] MEDS: MYCOPHENOLATE 250 MG CAP PO SCH (10:03)
[2019-02-01] MEDS ORDERED: SEVE800T7 PO (11:58)
[2019-02-01] MEDS ORDERED: [UNRECOGNIZED DRUG - CODE] IVPB (11:58)
--- NOTE | 2019-02-01 12:02 | PDOCDIS ---
Discharge Instructions CONDITION [id number] Patient Condition: [id number] Stable HOME CARE INSTRUCTIONS: [id number] Diet Instructions: [id number] Low Fat /Cholesterol ACTIVITY: [id number] Activity Restrictions: [id number] Slowly Increase Activity Rest between Activity FOLLOW UP/APPOINTMENTS Follow-up Plan You will need 4 more antibiotic sessions after hemodialysis . FARHAD LEZAMA Feb 01, 2019 12:02
[2019-02-01] MEDS ORDERED: gentamicin IV (12:04)
--- NOTE | 2019-02-01 12:06 | PDOCDIS ---
Discharge Instructions CONDITION [id number] Patient Condition: Juhkt2s Stable HOME CARE INSTRUCTIONS: [id number] Diet Instructions: [id number] Low Fat /Cholesterol ACTIVITY: Dicsq7Ac Activity Restrictions: [id number] Slowly Increase Activity Rest between Activity FOLLOW UP/APPOINTMENTS Follow-up Plan If you need to go to [place], you will need to have hemodialysis arranged over there because you cannot miss your HD sessions Also you will need 4 more antibiotic sessions after hemodialysis . FARHAD LEZAMA Feb 01, 2019 12:06
[2019-02-01] MEDS ORDERED: GENTAMICIN 80 MG/NS (PMX) 50 ML IVPB ONE (13:30)
[2019-02-01] MEDS: hydrOXYzine HCL 25 MG TAB PO PRN (14:03)
--- NOTE | 2019-02-01 14:39 | CONS ---
Assessment/Plan Assessment/Plan Assessment/Plan (Daily) 1. acute hyperklaemia 2. acute fluid overload 3. HTN urgency 4. ESRD on HD- on 4 times a week HD schedule and Tuesday 5. acute chest pain 6. h/o lupus 7. h/o depression Plan: s/p HD 2 days in a row, plan fro HD today also - she is already on 4 times a week HD schedule in HD unit Nifedipine 60mg PO daily, IV hydralazine prn, Renvela 800mg PO TID with meal S/p cardiology consult for chest pain, BP control will follow up Consultation Date/Type/Reason Admit Date/Time Jan 30, 2019 at 20:31 Initial Consult Date 01/30/19 Type of Consult NEPHROLOGY Requesting Provider: FARHAD LEZAMA Date/Time of Note DATE: 02/01/19 TIME: 14:39 Exam/Review of Systems Exam Vitals Vital Signs Date Temp Pulse Resp B/P (MAP) Pulse Ox O2 O2 Flow FiO2 Time Delivery Rate 02/01/19 80 18 124/84 100 Room Air 14:00 (97) 02/01/19 98.0 13:55 02/01/19 2.0 09:00 01/30/19 35 23:00 Intake and Output 01/31/19 01/31/19 02/01/19 1515:00 23:00 07:00 IntakeIntake Total 728 ml 955 ml 405 ml OutputOutput Total 0 ml 400 ml 0 ml BalanceBalance 728 ml 555 ml 405 ml Results Result Diagram: 01/31/19 0456 02/01/19 0448 Results 24hrs Laboratory Tests Test 02/01/19 04:48 Sodium Level 139 Potassium Level 5.1 Chloride Level 97 Carbon Dioxide Level 27 Anion Gap 15 H Blood Urea Nitrogen 22 H Creatinine 3.71 #H Est Glomerular Filtrat Rate mL/min 14 L Glucose Level 106 Calcium Level 9.5 Magnesium Level 2.1 Medications Medication Current Medications IV Flush (NS 3 ml) 3 ml PER PROTOCOL IV ; Start 01/30/19 at 06:30 Nitroglycerin (Nitroglycerin (Sl Tab) 0.4 Mg) 1 tab Q5M PRN SL .CHEST PAIN Last administered on 01/30/19at 13:35; Admin Dose 1 TAB; Start 01/30/19 at 06:30 Acetaminophen (Tylenol Tab) 650 mg Q6H PRN PO .PAIN 1-3 OR TEMP Last administered on 01/31/19 00:13; Admin Dose 650 MG; Start 01/30/19 at 06:30 Docusate Sodium (Colace) 100 mg Q12H PRN PO .CONSTIPATION; Start 01/30/19 at 06:30 Bisacodyl (Dulcolax) 5 mg DAILY PRN PO .CONSTIPATION; Start 01/30/19 at 06:30 Heparin Sodium (Porcine) (Heparin (5000 Units/1ml)) 5,000 unit Q12 SC Last administered on 02/01/19 08:41; Admin Dose 5,000 UNIT; Start 01/30/19 at 09:00 Hydromorphone HCl (Dilaudid) 1 mg Q4 PRN IV pain Last administered on 02/01/19 10:35; Admin Dose 1 MG; Start 01/30/19 at 08:00 Ondansetron HCl (Zofran Inj) 4 mg Q6H PRN IV NAUSEA AND/OR VOMITING Last administered on 01/30/19 12:16; Admin Dose 4 MG; Start 01/30/19 at 12:00 Ipratropium [place] (Atrovent 0.02% (Neb)) 0.5 mg Q4H RESP THERAPY PRN HHN SHORTNESS OF BREATH Last administered on 01/31/19 21:29; Admin Dose 0.5 MG; Start 01/30/19 at 12:00 Heparin Sodium (Porcine) (Heparin (1000 Units/ml)) 4,000 unit AFTER DIALYSIS CATHETER ; Start 01/30/19 at 13:00 Albumin Human 100 ml @ 100 mls/hr WITH DIALYSIS PRN IV SBP <90 DURING DIALYSIS; Start 01/30/19 at 13:00 Sodium Chloride (NS) -To prime the dialy... DIRECTED FOR HD PRN IV HD; Start 01/30/19 at 13:00 Hydralazine HCl (Apresoline) 10 mg Q6H PRN IV SBP>160 Last administered on 01/30/19 14:09; Admin Dose 10 MG; Start 01/30/19 at 14:30 Nicardipine HCl 200 ml @ 50 mls/hr TITRATE IV Last administered on 01/30/19 22:52; Admin Dose 50 MLS/HR; Start 01/30/19 at 16:30 Levalbuterol (Xopenex Neb) 0.63 mg Q6H RESP THERAPY HHN Last administered on 02/01/19 02:02; Admin Dose 0.63 MG; Start 01/30/19 at 20:00 Aspirin (Halfprin) 81 mg DAILY PO Last administered on 02/01/19 08:29; Admin Dose 81 MG; Start 01/31/19 at 09:00 Clonidine (Catapres) 0.1 mg TID PO Last administered on 01/31/19 21:19; Admin Dose 0.1 MG; Start 01/30/19 at 17:30 Hydroxychloroquine Sulfate (Plaquenil) 200 mg DAILY PO Last administered on 02/01/19 08:28; Admin Dose 200 MG; Start 01/31/19 at 09:00 Hydroxyzine HCl (Atarax) 50 mg Q8H PRN PO ITCHING Last administered on 02/01/19 14:03; Admin Dose 50 MG; Start 01/30/19 at 17:00 Lorazepam (Ativan) 1 mg TID PRN PO ANXIETY; Start 01/30/19 at 17:00 Mycophenolate Mofetil (Cellcept) 1,000 mg BID PO Last administered on 01/31/19 21:18; Admin Dose 1,000 MG; Start 01/30/19 at 21:00 Pantoprazole (Protonix Tab) 40 mg DAILY@0600 PO Last administered on 02/01/19 06:21; Admin Dose 40 MG; Start 01/31/19 at 06:00 Prednisone (Prednisone) 5 mg DAILY PO Last administered on 01/31/19 09:09; Admin Dose 5 MG; Start 01/31/19 at 09:00 Sertraline HCl (Zoloft) 25 mg DAILY PO Last administered on 02/01/19 08:36; Admin Dose 25 MG; Start 01/30/19 at 18:00 Sevelamer Carbonate (Renvela) 800 mg WITH MEALS PO Last administered on 01/31/19 17:36; Admin Dose 800 MG; Start 01/31/19 at 17:35 Cefepime HCl 50 ml @ 100 mls/hr Q24H IVPB Last administered on 01/31/19 21:18; Admin Dose 100 MLS/HR; Start 01/31/19 at 21:00 Vancomycin HCl (Vanco Iv Per Pharmacy) VANCOMYCIN PER PHARMACY PER PROTOCOL XX ; Start 01/31/19 at 17:00 Nifedipine (Procardia Xl) 60 mg DAILY PO ; Start 02/01/19 at 09:00 Carvedilol (Coreg) 50 mg BID PO Last administered on 02/01/19at 14:04; Admin Dose 50 MG; Start 02/01/19 at 13:30 ARTURO AMADOR MD Feb 01, 2019 14:39
--- NOTE | 2019-02-05 10:15 | DS ---
DATE OF ADMISSION: 01/30/2019 DATE OF DISCHARGE: 02/01/2019 DISCHARGE DIAGNOSES: 1. Chest pain and respiratory distress secondary to #2. 2. Acute fluid overload, recurrent. 3. Hypokalemia. 4. Hypertensive urgency, resolved. 5. End-stage renal disease on hemodialysis 4 times a week, Tuesday, , Tuesday, and Tuesday. 6. History of lupus. 7. History of depression. 8. Chronic cachexia and malnutrition. 9. Chronic thrombocytopenia, likely consumptive. 10. The patient is being treated for presumed healthcare-associated pneumonia. CONSULTS ON THE CASE: Vicente Dean M.D., nephrology, Marcin Rodriguez M.D. cardiology. INTERVENTIONS: The patient just underwent aggressive hemodialysis with fluid removal approximately w ithin 2.2 and 2.5 almost daily throughout her admission. She did have BRITTNEY because of elevated this S BP and required ICU transfer and nicardipine drip for a short course. CONDITION AT DISCHARGE: Stable. ACTIVITIES: As tolerated. DISCHARGE MEDICATIONS: 1. The patient is going to complete a course of IV gentamicin after dialysis. 2. Renvela 800 with meals. 3. Aspirin 81 daily. 4. Coreg 50 q.12h. 5. Clonidine 0.1 three times a day. 6. Benadryl as needed. 7. Hydroxychloroquine sulfate 200 daily. 8. Atarax as needed. 9. Mycophenolate mofetil 1 gram b.i.d. 10. Procardia-XL 60 b.i.d. 11. Protonix 40 daily. 12. Prednisone 5 daily. 13. Sertraline 25 daily. 14. Restoril 15 mg at bedtime. FOLLOWUP: The patient will continue routine hemodialysis 4 times a week and Dr. Dean as outpatient and recommended to see her primary care doctor as well for routine followup. Time spent on discharge coordination greater than 1 hour. Dictated By: FARHAD LEZAMA MD, BA/NTS Conf#: [id number] DID#: [id number] CC: SONY SOTO MD;*EndCC*
== END 2019-02-01 17:00 | disposition home or self-care (01) | DRG 682 ==
LOC: E/R 04:53 → TEL 05:59 → ICU 15:33 → OBSVTOIN 20:31 → 5EC 02-01 06:45
PROVIDERS: ADMIT Family Medicine; ATTEND Family Medicine
PROC: 5A1D70Z Performance of Urinary Filtration, Intermittent, Less than 6 Hours Per Day (ICD-10-PCS; principal; 2019-01-30)
DX: I12.0 Hypertensive chronic kidney disease with stage 5 chronic kidney disease or end stage renal disease (principal); N18.6 End stage renal disease; J96.01 Acute respiratory failure with hypoxia; J18.9 Pneumonia, unspecified organism; J90 Pleural effusion, not elsewhere classified; R64 Cachexia; E44.0 Moderate protein-calorie malnutrition; E87.70 Fluid overload, unspecified; Z99.2 Dependence on renal dialysis; E87.5 Hyperkalemia; I16.0 Hypertensive urgency; F32.9 Major depressive disorder, single episode, unspecified; E78.00 Pure hypercholesterolemia, unspecified; E11.8 Type 2 diabetes mellitus with unspecified complications; Z68.23 Body mass index [BMI] 23.0-23.9, adult; D69.6 Thrombocytopenia, unspecified; D63.1 Anemia in chronic kidney disease
CPT/HCPCS: 36415; 71045; 76604; 80048; 80053; 82550; 82553; 82962; 83735; 84100; 84484; 85025; 87070; 90935; 93005; 93306; 94640; 94664; 96374; 96375; 99217; G0378; J0360; J0692; J1170; J1580; J1644; J1940; J2060; J2405; J2765; J2930; J3370; J7512; J7517

== ENCOUNTER 2019-02-16 19:16 | Inpatient (IN) | payer MEDICARE, OTHER ==
[~2019-02-16] VITALS: Ht 144.8 cm; Wt 49.2 kg
[~2019-02-16 19:16] MED LIST changes: -CLOS PO; -LORA1TAB PO; +SEVE800T7 PO; +[UNRECOGNIZED DRUG - CODE] IVPB; +gentamicin IV
[2019-02-16] MEDS ORDERED: ASPIRIN 81 MG TAB PO STA (19:50)
[2019-02-16] MEDS ORDERED: morphine 4 MG/ML VIAL IV STA (19:50)
[2019-02-16] MEDS ORDERED: ONDANSETRON 4 MG INJ IV STA (19:50)
--- NOTE | 2019-02-16 23:26 | ERD ---
ER Documentation Chief Complaint Chief Complaint shortness of breath/cp x 2 hours HPI 33-year-old female history of end-stage renal disease on dialysis, lupus and coronary disease who presents with chest pain. She describes 2 days of chest pain that is pressure-like, 5 out of 10, nonpleuritic. No fevers chills or cough. Patient denies any headache but has noted some shortness of breath. ROS All systems reviewed and are negative except as per history of present illness. Medications Home Meds Active Scripts Gentamicin-NS (Gentamicin-NS) 60 Mg/50 Ml Iv.soln., 50 MG IVPB AFTER DIALYSIS, #4 DOSE Prov:FARHAD LEZAMA. 02/01/19 Sevelamer Carbonate* (Renvela*) 800 Mg Tablet, 800 MG PO WITH MEALS, #90 TAB 2 Refills Prov:FARHAD LEZAMA . 02/01/19 Aspirin* (Aspirin* (EC)) 81 Mg Tablet., 81 MG PO DAILY, #30 TAB 2 Refills otc Prov:LI GIL MD 01/15/19 Clonidine Hcl* (Catapres*) 0.1 Mg Tablet, 0.1 MG PO TID, #90 TAB Prov:VALERIA PETER NP 12/14/18 Carvedilol* (Carvedilol*) 25 Mg Tablet, 50 MG PO Q12, #60 TAB Prov:FARHAD LEZAMA . 11/23/18 Diphenhydramine Hcl* (Benadryl*) 25 Mg Cap, 25 MG PO Q6 PRN for ITCHING/RASH, #30 TAB Prov:FADY ADAM 11/16/18 Nifedipine (Procardia Xl) 60 Mg Tab.er.24, 60 MG PO BID for 30 Days, #60 TAB 2 Refills Prov:FARHAD LEZAMA Fabrizio 10/30/18 Sertraline Hcl* (Sertraline Hcl*) 25 Mg Tablet, 25 MG PO DAILY for anxiety, #30 TAB Prov:FARHAD LEZAMA . 10/30/18 Hydroxyzine Hcl* (Atarax*) 25 Mg Tab, 50 MG PO Q8H PRN for ITCHING, #30 TAB Prov:FARHAD LEZAMA 10/30/18 Pantoprazole* (Pantoprazole*) 40 Mg Tablet.dr, 40 MG PO DAILY, #30 TAB 2 Refills Prov:FARHAD LEZAMA. 10/30/18 Reported Medications Temazepam (Restoril) 15 Mg Cap, 15 MG PO QHS PRN for SLEEP for 30 Days 12/21/18 Prednisone* (Prednisone*) 5 Mg Tab, 5 MG PO DAILY, TAB 11/16/18 Mycophenolate Mofetil* (Mycophenolate Mofetil*) 500 Mg Tablet, 1000 MG PO BID, TAB TAKE 2 TABLET BY MOUTH EVERY MORNING AND EVENING 06/30/18 Hydroxychloroquine Sulfate* (Hydroxychloroquine Sulfate*) 200 Mg Tablet, 200 MG PO DAILY, TAB TAKE 1 TAB BY MOUTH EVERY TUESDAY-Tuesday06/30/18 Discontinued Scripts [gentamicin] No Conflict Check, IV for pneumonia pharmacy to dose Prov:FARHAD LEZAMA. 02/01/19 Allergies Allergies: Coded Allergies: hydrocodone (Unverified Allergy, Unknown, paralysis, 02/16/19) PMhx/Soc History of Surgery: No (Connor fistula) Anesthesia Reaction: No Hx Neurological Disorder: No Hx Respiratory Disorders: No Hx Cardiac Disorders: Yes (HTN) Hx Psychiatric Problems: No Hx Miscellaneous Medical Probl: No Hx Alcohol Use: No Hx Substance Use: No Hx Tobacco Use: No Smoking Status: Never smoker FmHx Family History: No diabetes Physical Exam Vitals Vital Signs Date Temp Pulse Resp B/P (MAP) Pulse Ox O2 O2 Flow FiO2 Time Delivery Rate 02/16/19 99.1 79 20 141/77 100 Room Air 19:55 (98) 02/16/19 99.1 104 20 156/86 100 19:27 (109) Physical Exam General: Well developed, well nourished, no acute distress Head: Normocephalic, atraumatic. Eyes: Pupils equally reactive, EOM intact ENT: Moist mucous membranes Neck: Supple, no lymphadenopathy Respiratory: Lungs clear bilaterally, no distress Cardiovascular: RRR, no murmurs, rubs, or gallops Abdominal: Soft, non-tender, non-distended, no peritoneal signs : Deferred MSK: No edema, no unilateral swelling, 5/5 strength Neurologic: Alert and oriented, moving all extremities, normal speech, no focal weakness, no cerebellar signs Skin: No rash Psych: Normal mood Result Diagram: 02/16/19200902/16/192009 Results 24 hrs Laboratory Tests Test 02/16/19 20:10 White Blood Count 5.2 10^3/ul Red Blood Count 2.62 10^6/ul Hemoglobin 8.0 g/dl Hematocrit 27.6 % Mean Corpuscular Volume 105.3 fl Mean Corpuscular Hemoglobin 30.5 pg Mean Corpuscular Hemoglobin Concent 29.0 g/dl Red Cell Distribution Width 17.3 % Platelet Count 106 10^3/UL Mean Platelet Volume 11.1 fl Immature Granulocytes % 0.400 % Neutrophils % 61.0 % Lymphocytes % 22.9 % Monocytes % 14.7 % Eosinophils % 0.4 % Basophils % 0.6 % Nucleated Red Blood Cells % 0.0 /100WBC Immature Granulocytes # 0.020 10^3/ul Neutrophils # 3.2 10^3/ul Lymphocytes # 1.2 10^3/ul Monocytes # 0.8 10^3/ul Eosinophils # 0.0 10^3/ul Basophils # 0.0 10^3/ul Nucleated Red Blood Cells # 0.0 10^3/ul Prothrombin Time 12.9 Sec Prothrombin Time Ratio 1.0 INR International Normalized Ratio 0.96 Activated Partial Thromboplast Time 36.0 Sec Sodium Level 140 mmol/L Potassium Level 5.6 mmol/L Chloride Level 107 mmol/L Carbon Dioxide Level 21 mmol/L Anion Gap 12 Blood Urea Nitrogen 31 mg/dl Creatinine 5.10 mg/dl Est Glomerular Filtrat Rate mL/min 10 mL/min Glucose Level 87 mg/dl Calcium Level 8.6 mg/dl Troponin I < 0.012 ng/ml Current Medications Medications Dose Sig/Damaso Start Time Status Last (Trade) Ordered Route PRN Stop Time Admin Dose Reason Admin Aspirin 162 mg ONCE STAT 02/16/19 DC 02/16/19 (Aspirin) PO 19:50 20:05 02/16/19 19:52 Morphine 4 mg ONCE STAT 02/16/19 DC 02/16/19 Sulfate IV 19:50 20:05 (morphine) 02/16/19 19:52 Ondansetron 4 mg ONCE STAT 02/16/19 DC 02/16/19 HCl (Zofran IV 19:50 20:05 Inj) 02/16/19 19:52 Ondansetron 4 mg ER BRIDGE 02/16/19 HCl (Zofran PRN IV 23:30 Inj) NAUSEA/VOMITI 02/17/19 23:29 NG 650 mg ER BRIDGE 02/16/19 Acetaminophen PRN PO 23:30 (Tylenol .MILD PAIN 02/17/19 23:29 Tab) 1-3 OR TEMP IV Flush 3 ml PER 02/16/19 (NS 3 ml) PROTOCOL IV 23:30 Ondansetron 4 mg Q6H PRN 02/16/19 HCl (Zofran PO 23:30 Tab) NAUSEA/VOMITI NG 1 tab Q5M PRN 02/16/19 Nitroglycerin SL .CHEST 23:30 PAIN (Nitroglyceri n (Sl Tab) 0.4 Mg) 650 mg Q6H PRN 02/16/19 Acetaminophen PO .PAIN 1-3 23:30 (Tylenol OR TEMP Tab) Morphine 2 mg Q4H PRN 02/16/19 UNV Sulfate IV .PAIN 23:30 (morphine) 7-10 Heparin 5,000 unit Q8 SC 02/16/19 UNV Sodium 23:30 (Porcine) (Heparin (5000 Units/1ml)) Aspirin 81 mg DAILY PO 02/17/19 UNV (Halfprin) 09:00 Carvedilol 50 mg Q12 PO 02/16/19 UNV (Coreg) 23:30 Clonidine 0.1 mg TID PO 02/17/19 UNV (Catapres) 09:00 200 mg DAILY PO 02/17/19 UNV Hydroxychloro 09:00 quine Sulfate (Plaquenil) 1,000 mg BID PO 02/16/19 UNV Mycophenolate 23:30 Mofetil (Cellcept) Nifedipine 60 mg BID PO 02/16/19 UNV (Procardia 23:30 Xl) 40 mg DAILY PO 02/17/19 UNV Pantoprazole 09:00 (Protonix Tab) Prednisone 5 mg DAILY PO 02/17/19 UNV (Prednisone) 09:00 Sertraline 25 mg DAILY PO 02/17/19 UNV HCl 09:00 (Zoloft) Sevelamer 0.8 gm WITH MEALS 02/17/19 UNV Carbonate PO 08:00 (Renvela) 15 mg QHS PRN 02/16/19 UNV Miscellaneous PO SLEEP 23:30 Information Procedures/MDM EKG, MONITORS, & DIAGNOSTIC IMAGING: EKG: I reviewed and interpreted a 12-lead EKG. Rhythm: Normal sinus rhythm ST Changes: No contiguous ST segment elevations T waves: No contiguous T wave inversions Impression: [No evidence of acute cardiac ischemia] Chest x-ray: I reviewed and interpreted a 1 view of the chest Mediastinum: No enlargement Cardiac silhouette: cardiomegaly Airspace: Interstitial process bilaterally Bones: No evidence of fracture LAB INTERPRETATION: I reviewed the laboratory testing and it shows negative troponin MEDICAL DECISION MAKING: Patient chest pain is concerning for possible cardiac etiology. The patient does have a history of chronic pain but is at high risk based on her disease process. Patient additionally has evidence of volume overload and would benefit from semi-urgent dialysis, nonemergent though. ER COURSE: * Patient given aspirin and pain control medication. Pain is improving. No evidence of active cardiac ischemia. Borderline potassium elevation no indica tion for intervention at this time. * Patient is protecting her airway and does not require intubation. No indication or signs or symptoms concerning for dissection or pulmonary embolism. CONSULTATION: [None] DISPOSITION PLAN: Telemetry admission for management of chest pain to rule out acute coronary syndrome, serial enzymes, risk stratification and consideration of provocative testing CONSULTATION: Accepting care team and consultations: I discussed the current laboratory data, diagnostic imaging and emergency care provided. Admitting team: Dr. Lang Admitting team indication: Insurance directed Departure Diagnosis: Primary Impression: Shortness of breath Additional Impressions: History of lupus Chest pain Chest pain type: unspecified Qualified Codes: R07.9 - Chest pain, unspecified Chronic pain Chronic pain type: other chronic pain Qualified Codes: G89.29 - Other chronic pain End stage renal disease on dialysis Condition: Stable BRETT JIMÉNEZ MD Feb 16, 2019 23:26
[2019-02-16] MEDS ORDERED: ACETAMINOPHEN 325 MG TAB PO PRN (23:30)
[2019-02-16] MEDS ORDERED: HEPARIN 5,000 UNIT/1 ML VIAL SC SCH (23:30)
[2019-02-16] MEDS ORDERED: NACL 0.9% 3 ML SYG IV SCH (23:30)
[2019-02-16] MEDS ORDERED: NITROGLYCERIN (SL) 0.4 MG TAB SL PRN (23:30)
[2019-02-16] MEDS ORDERED: morphine 2 MG INJ IV PRN (23:30)
[2019-02-16] MEDS ORDERED: ONDANSETRON 4 MG INJ IV PRN (23:30)
--- NOTE | 2019-02-16 23:32 | HP ---
Date/Time of Note Date/Time of Note DATE: 02/16/19 TIME: 23:31 Assessment/Plan VTE Prophylaxis Pharmacological prophylaxis: heparin Assessment/Plan Hospital Course This is a 33 female being admitted to the telemetry floor for observation for: #1 chest pain: Likely secondary to volume overload state. Will trend cardiac enzymes x3, the first that was negative. Recent echocardiogram showed a ejection fraction of approximately 50-55%. Consider cardiology consultation if indicated #2 pulmonary congestion: Secondary to fluid overload given end-stage renal disease. Will consult nephrology for dialysis in the a.m., if symptoms worsen we will get it emergently. #3 end-stage renal disease: Patient on dialysis approximately times a week. . Patient will require dialysis in the a.m. if not sooner depending on patient's clinical condition. At the current time she does appear to be stable on nasal cannula. Continue home medications #4 chronic lupus: Continue patient home medications #5 chronic cachexia and malnutrition: Encourage diet, #6 chronic anemia: Secondary likely to underlying end-stage renal disease: Continue to monitor closely. Consult nephrology. #7 thrombocytopenia: Monitor, continue to monitor closely #8 hypertension: We will resume patient's home blood pressure medications, monitor closely. #9 DVT GI prophylaxis: Heparin, no GI prophylaxis indicated Further treatment strategy will be implemented as per the clinical course Result Diagram: 02/16/19200902/16/192009 Results 24hrs Laboratory Tests Test 02/16/19 20:10 White Blood Count 5.2 # Red Blood Count 2.62 L Hemoglobin 8.0 L Hematocrit 27.6 L Mean Corpuscular Volume 105.3 H Mean Corpuscular Hemoglobin 30.5 Mean Corpuscular Hemoglobin Concent 29.0 L Red Cell Distribution Width 17.3 H Platelet Count 106 L Mean Platelet Volume 11.1 H Immature Granulocytes % 0.400 Neutrophils % 61.0 Lymphocytes % 22.9 Monocytes % 14.7 H Eosinophils % 0.4 Basophils % 0.6 Nucleated Red Blood Cells % 0.0 Immature Granulocytes # 0.020 Neutrophils # 3.2 Lymphocytes # 1.2 Monocytes # 0.8 Eosinophils # 0.0 Basophils # 0.0 Nucleated Red Blood Cells # 0.0 Prothrombin Time 12.9 Prothrombin Time Ratio 1.0 INR International Normalized Ratio 0.96 Activated Partial Thromboplast Time 36.0 H Sodium Level 140 Potassium Level 5.6 H Chloride Level 107 Carbon Dioxide Level 21 Anion Gap 12 Blood Urea Nitrogen 31 H Creatinine 5.10 H Est Glomerular Filtrat Rate mL/min 10 L Glucose Level 87 Calcium Level 8.6 Troponin I < 0.012 HPI/ROS Admit Date/Time Admit Date/Time Hx of Present Illness Chief complaint: Shortness of breath, chest pain This is a 33-year-old female who is well-known to our service with end-stage renal disease and lupus who presented to the emergency department complaining of chest pain. Patient reported that she had chest pain for the last 2 days. She reported that it was pressure-like in 5 out of 10. She denies any fevers or c hills or cough. Patient has been admitted multiple times in the past for similar symptoms. She is on hemodialysis approximately 4 times a week. Her recent echocardiogram done earlier this month ejection fraction of approximately 50-55% with a small chronic pericardial effusion. Currently she is on nasal cannula and not in any acute respiratory distress. Allergies: Hydrocodone Medications: See KEO MCNAIR Const: As per HPI Eyes : No pain discharge or redness or change in visual acuity ENT: No pain, sore throat, congestion, congestion, dysphagia or discharge Respiratory: As per HPI Cardiovascular: As per HPI GI : no change in appetite, abdominal pain, nausea, vomiting, diarrhea, constipation, or change in the color his stool Genitourinary: No dysuria, hematuria, flank pain , discharge or CVA tenderness Musculoskeletal: No joint pain, back pain, neck pain, restricted range of motion in neck or joints Skin: No rash, bruising or hives Neuro: No headache, dizziness, syncope, seizure, focal weakness Endocrine: No polyuria, polydipsia, temperature intolerance Psych: No hallucination, depression, anxiety or suicidal ideation PMH/Family/Social Past Medical History 1. Hypertension. 2. End-stage renal disease, on hemodialysis. 3. Chronic lupus. 4. Chronic depression. 5. She has had a chronic small pericardial effusion that has remained unchanged on multiple images. The patient is also chronically malnourished with cachexia from chronic disease. Medications Current Medications Ondansetron HCl (Zofran Inj) 4 mg ER BRIDGE PRN IV NAUSEA/VOMITING; Start 02/16/19 at 23:30; Stop 02/17/19 at 23:29 Acetaminophen (Tylenol Tab) 650 mg ER BRIDGE PRN PO .MILD PAIN 1-3 OR TEMP; Start 02/16/19 at 23:30; Stop 02/17/19 at 23:29 IV Flush (NS 3 ml) 3 ml PER PROTOCOL IV ; Start 02/16/19 at 23:30 Ondansetron HCl (Zofran Tab) 4 mg Q6H PRN PO NAUSEA/VOMITING; Start 02/16/19 at 23:30 Nitroglycerin (Nitroglycerin (Sl Tab) 0.4 Mg) 1 tab Q5M PRN SL .CHEST PAIN; Start 02/16/19 at 23:30 Acetaminophen (Tylenol Tab) 650 mg Q6H PRN PO .PAIN 1-3 OR TEMP; Start 02/16/19 at 23:30 Morphine Sulfate (morphine) 2 mg Q4H PRN IV .PAIN 7-10; Start 02/16/19 at 23:30 Heparin Sodium (Porcine) (Heparin (5000 Units/1ml)) 5,000 unit Q8 SC ; Start 02/16/19 at 23:30; Status UNV Aspirin (Halfprin) 81 mg DAILY PO ; Start 02/17/19 at 09:00; Status UNV Carvedilol (Coreg) 50 mg Q12 PO ; Start 02/16/19 at 23:30; Status UNV Clonidine (Catapres) 0.1 mg TID PO ; Start 02/17/19 at 09:00; Status UNV Hydroxychloroquine Sulfate (Plaquenil) 200 mg DAILY PO ; Start 02/17/19 at 09:00; Status UNV Mycophenolate Mofetil (Cellcept) 1,000 mg BID PO ; Start 02/16/19 at 23:30; Status UNV Nifedipine (Procardia Xl) 60 mg BID PO ; Start 02/16/19 at 23:30; Status UNV Pantoprazole (Protonix Tab) 40 mg DAILY PO ; Start 02/17/19 at 09:00; Status UNV Prednisone (Prednisone) 5 mg DAILY PO ; Start 02/17/19 at 09:00; Status UNV Sertraline HCl (Zoloft) 25 mg DAILY PO ; Start 02/17/19 at 09:00; Status UNV Sevelamer Carbonate (Renvela) 0.8 gm WITH MEALS PO ; Start 02/17/19 at 08:00; Status UNV Miscellaneous Information 15 mg QHS PRN PO SLEEP; Start 02/16/19 at 23:30; Status UNV Coded Allergies: hydrocodone (Unverified Allergy, Unknown, paralysis, 02/16/19) Past Surgical History AV fistula Past Surgical Hx: other Family History Significant Family History: no pertinent family hx Social History Alcohol Use: none Smoking Status: Never smoker Drug Use: none Exam/Review of Systems Vital Signs Vitals Vital Signs Date Temp Pulse Resp B/P (MAP) Pulse Ox O2 O2 Flow FiO2 Time Delivery Rate 02/16/19 99.1 79 20 141/77 100 Room Air 19:55 (98) Exam Exam General: Patient is currently lying in bed he does not appear to be in acute distress. HEENT: Atraumatic, normocephalic. The pupils are equal, round and reactive. Extraocular motor are intact Neck: Supple with full range of motion. No rigidity or meningismus Chest: Nontender Lungs: Coarse breath sounds/rales bilaterally, nonlabored breathing Heart: Normal S1-S2, Regular rhythm and rate. No murmur, S3, or S4 Abdomen: Soft , nontender, nondistended , bowel sounds are present. No guarding no rebound tenderness , No masses or organomegaly. No costovertebral temporal angle mass Extremities: Normal to inspection, no edema no cyanosis Neurologic: Normal mental status, speech normal, cranial nerves II through XII are intact, motor and sensory are intact, no focal weakness Additional Comments PROCEDURE: XR Chest. CLINICAL INDICATION: Chest pain TECHNIQUE: Frontal chest x-ray was obtained. COMPARISON: Chest x-ray January 30, 2019 FINDINGS: The heart is enlarged. Mediastinum is not widened. No hilar masses seen. No alveolar infiltrate or mass is present. There are increased perihilar bronchovascular markings and increased interstitial markings compatible with pulmonary vascular congestion.. There is no effusion or pneumothorax. The osseous structures appear normal. Clips are seen in the left upper extremity. IMPRESSION: Cardiomegaly with pulmonary vascular congestion. .Bassam Mcgraw MD, Date Time Electronically viewed and signed by .Bassam Mcgraw MD, on 02/16/2019 21:21 .A/ CC: BRETT JIMÉNEZ MD [id number] EKG: Rhythm: Normal sinus rhythm ST Changes: No contiguous ST segment elevations T waves: No contiguous T wave inversions Impression: [No evidence of acute cardiac ischemia] SONY SOTO Feb 16, 2019 23:32
[2019-02-17] VITALS (98 sets, daily range): BP systolic 63–222; BP diastolic 44–146; PULSE 44–125; RESP 15–52; Ht 144.8 cm; Wt 49.2 kg
[2019-02-17] MEDS: MYCOPHENOLATE 250 MG CAP PO SCH ×3 (00:31→21:00)
[2019-02-17] MEDS: NIFEdipine (XL) 60 MG TAB PO SCH ×3 (00:31→21:55)
[2019-02-17] MEDS: HEPARIN 5,000 UNIT/1 ML VIAL SC SCH ×4 (02:10→22:02)
[2019-02-17] MEDS: ACETAMINOPHEN 325 MG TAB PO PRN ×2 (02:10→21:54)
[2019-02-17] MEDS ORDERED: HYDROmorphONE 0.5 MG/0.5 ML SYG IV PRN (02:30)
[2019-02-17] MEDS ORDERED: LORAZEPAM 2 MG INJ IV ONE ×2 (04:00→10:00)
[2019-02-17] MEDS ORDERED: LABETALOL HCL 20MG INJ IV ONE (04:00)
[2019-02-17] MEDS ORDERED: LABETALOL HCL 20MG INJ IV PRN (05:00)
[2019-02-17] MEDS: PANTOPRAZOLE (EC) 40 MG TAB PO SCH (05:07)
[2019-02-17] MEDS ORDERED: HEPARIN 1000 UNITS/ML 10 ML INJ CATHETER SCH (05:30)
[2019-02-17] MEDS ORDERED: SODIUM CHLORIDE 0.9% 1L BAG IV PRN (05:30)
--- NOTE | 2019-02-17 05:59 | CONS ---
Assessment/Plan Assessment/Plan Assessment/Plan (Daily) 1. acute hypoxic respiratory distress due to acute pulmonary edema 2. ESRD on HD 4 times a week at [facility] HD schedule 3. Acute chest pain 4. Hyperkalemia 5. h/o Lupus 6. h/o HTN 7. H/o HL 8. H/o seizure disorder Plan: HD was ordered as stat, HD Nurse was at bedside but before hD gets started , pt had a ECMO SPECIALIST/Code blue for respiratoyr distress, pt was intubated and Transferred to ICU- Central line placed by Intensivisit BP has been labile Leovphed prn Plan is to do HD today with UF wi goal to remove at least 3 L as tolerated will plan for another extra HD tomorrow also Pulmpnary site director has been following pt pt seen in Tele floor ealry in AM and will be followed up in ICU Thanks for consultation, I will continue to follow up Consultation Date/Type/Reason Admit Date/Time 02/16/19 Date of Consultation: Feb 17, 2019 Type of Consult NEPHROLOGY Reason for Consultation pulmonary edema, ESRD on HD Requesting Provider: SONY SOTO Date/Time of Note DATE: 02/17/19 TIME: 05:59 Hx of Present Illness 33-year-old female wiht PMHx of ESRD on HD 4 times a week, HTN, HL, Lupus, H/o seizure disorder who presented to the emergency department complaining of chest pain. Patient reported that she had chest pain for the last 2 days. She reported that it was pressure-like in 5 out of 10. She denies any fevers or chills or cough. Patient has been admitted multiple times in the past for similar symptoms. She is on hemodialysis approximately 4 times a week. Her recent echocardiogram done earlier this month ejection fraction of approximately 50-55% with a small chronic pericardial effusion. She was noted to have pulmonary edema, and Hyperkalemia on initial labs, admitted to Tele floor and overnight Renal has been consulted for urgent HD Pt had a Hypoxia on admission but upon Evalaution on Tele floor, she was on 3 L NC, saturating 94 %, no chest pain HD stat has been ordered by me Constitutional: no complaints ENT: no complaints Respiratory: cough, pleuritic pain, shortness of breath Cardiovascular: no complaints Gastrointestinal: no complaints Genitourinary: no complaints Musculoskeletal: no complaints Skin: no complaints Neurologic: no complaints Endocrine: no complaints Lymphatic: no complaints Psychological: no complaints Immunologic: no complaints Past Medical History Medical History: high cholesterol, hypertension, other (ESRD on HD, Lupus, seizure disorder ) Home Meds Active Scripts Gentamicin-NS (Gentamicin-NS) 60 Mg/50 Ml Iv.soln., 50 MG IVPB AFTER DIALYSIS, #4 DOSE [facility] 02/01/19 Sevelamer Carbonate* (Renvela*) 800 Mg Tablet, 800 MG PO WITH MEALS, #90 TAB 2 [facility] 02/01/19 Aspirin* (Aspirin* (EC)) 81 Mg Tablet., 81 MG PO DAILY, #30 TAB 2 Refills otc Prov:LI GIL MD 01/15/19 Clonidine Hcl* (Catapres*) 0.1 Mg Tablet, 0.1 MG PO TID, #90 TAB Prov:VALERIA PETER NP 12/14/18 Carvedilol* (Carvedilol*) 25 Mg Tablet, 50 MG PO Q12, #60 TAB [facility]. 11/23/18 Diphenhydramine Hcl* (Benadryl*) 25 Mg Cap, 25 MG PO Q6 PRN for ITCHING/RASH, #30 TAB Prov:FADY ADAM 11/16/18 Nifedipine (Procardia Xl) 60 Mg Tab.er.24, 60 MG PO BID for 30 Days, #60 TAB 2 Refills [facility]. 10/30/18 Sertraline Hcl* (Sertraline Hcl*) 25 Mg Tablet, 25 MG PO DAILY for anxiety, #30 TAB [facility]. 10/30/18 Hydroxyzine Hcl* (Atarax*) 25 Mg Tab, 50 MG PO Q8H PRN for ITCHING, #30 TAB Prov[facility]. 10/30/18 Pantoprazole* (Pantoprazole*) 40 Mg Tablet.dr, 40 MG PO DAILY, #30 TAB 2 Refills Prov[facility]. 10/30/18 Reported Medications Temazepam (Restoril) 15 Mg Cap, 15 MG PO QHS PRN for SLEEP for 30 Days 12/21/18 Prednisone* (Prednisone*) 5 Mg Tab, 5 MG PO DAILY, TAB 11/16/18 Mycophenolate Mofetil* (Mycophenolate Mofetil*) 500 Mg Tablet, 1000 MG PO BID, TAB TAKE 2 TABLET BY MOUTH EVERY MORNING AND EVENING 06/30/18 Hydroxychloroquine Sulfate* (Hydroxychloroquine Sulfate*) 200 Mg Tablet, 200 MG PO DAILY, TAB TAKE 1 TAB BY MOUTH EVERY TUESDAY-Tuesday06/30/18 Discontinued Scripts [gentamicin] No Conflict Check, IV for pneumonia pharmacy to dose Prov:JEMMA LEZAMAHannah Malik 02/01/19 Medications Current Medications Ondansetron HCl (Zofran Inj) 4 mg ER BRIDGE PRN IV NAUSEA/VOMITING Last administered on 02/17/19at 02:09; Admin Dose 4 MG; Start 02/16/19 at 23:30; Stop 02/17/19 at 23:29 Acetaminophen (Tylenol Tab) 650 mg ER BRIDGE PRN PO .MILD PAIN 1-3 OR TEMP; Start 02/16/19 at 23:30; Stop 02/17/19 at 23:29 IV Flush (NS 3 ml) 3 ml PER PROTOCOL IV ; Start 02/16/19 at 23:30 Ondansetron HCl (Zofran Tab) 4 mg Q6H PRN PO NAUSEA/VOMITING; Start 02/16/19 at 23:30 Nitroglycerin (Nitroglycerin (Sl Tab) 0.4 Mg) 1 tab Q5M PRN SL .CHEST PAIN; Start 02/16/19 at 23:30 Acetaminophen (Tylenol Tab) 650 mg Q6H PRN PO .PAIN 1-3 OR TEMP Last administered on 02/17/19at 02:10; Admin Dose 650 MG; Start 02/16/19 at 23:30 Morphine Sulfate (morphine) 2 mg Q4H PRN IV .PAIN 7-10 Last administered on 02/16/19at 23:38; Admin Dose 2 MG; Start 02/16/19 at 23:30 Aspirin (Halfprin) 81 mg DAILY PO ; Start 02/17/19 at 09:00 Carvedilol (Coreg) 50 mg Q12 PO Last administered on 02/17/19at 00:32; Admin Dose 50 MG; Start 02/16/19 at 23:30 Clonidine (Catapres) 0.1 mg TID PO ; Start 02/17/19 at 09:00 Hydroxychloroquine Sulfate (Plaquenil) 200 mg DAILY PO ; Start 02/17/19 at 09:00 Mycophenolate Mofetil (Cellcept) 1,000 mg BID PO Last administered on 02/17/19at 00:31; Admin Dose 1,000 MG; Start 02/16/19 at 23:30 Nifedipine (Procardia Xl) 60 mg BID PO Last administered on 02/17/19at 00:31; Admin Dose 60 MG; Start 02/16/19 at 23:30 Pantoprazole (Protonix Tab) 40 mg DAILY@0600 PO Last administered on 02/17/19at 05:07; Admin Dose 40 MG; Start 02/17/19 at 06:00 Prednisone (Prednisone) 5 mg DAILY PO ; Start 02/17/19 at 09:00 Sertraline HCl (Zoloft) 25 mg DAILY PO ; Start 02/17/19 at 09:00 Sevelamer Carbonate (Renvela) 0.8 gm WITH MEALS PO ; Start 02/17/19 at 08:00 Miscellaneous Information 15 mg QHS PRN PO SLEEP; Start 02/16/19 at 23:30; Status UNV Heparin Sodium (Porcine) (Heparin (5000 Units/1ml)) 5,000 unit Q8 SC Last administered on 02/17/19at 02:10; Admin Dose 5,000 UNIT; Start 02/17/19 at 02:00 Hydromorphone HCl (Dilaudid) 0.5 mg Q6H PRN IV SEVERE PAIN LEVEL 7-10 Last administered on 02/17/19at 03:37; Admin Dose 0.5 MG; Start 02/17/19 at 02:30 Labetalol HCl (Labetalol) 10 mg Q4 PRN IV SPB>170; Start 02/17/19 at 05:00 Heparin Sodium (Porcine) (Heparin (1000 Units/ml)) 4,000 unit AFTER DIALYSIS CATHETER ; Start 02/17/19 at 05:30 Albumin Human 100 ml @ 100 mls/hr WITH DIALYSIS PRN IV SBP <90 DURING DIALYSIS; Start 02/17/19 at 05:30 Sodium Chloride (NS) -To prime the dialy... DIRECTED FOR HD PRN IV HD; Start 02/17/19 at 05:30 Allergies: Coded Allergies: hydrocodone (Unverified Allergy, Unknown, paralysis, 02/16/19) Past Surgical History Past Surgical Hx: other (AVF, permacath ) Family History Significant Family History: no pertinent family hx Social History Alcohol Use: none Smoking Status: Never smoker Exam/Review of Systems Exam Vitals Vital Signs Date Temp Pulse Resp B/P (MAP) Pulse Ox O2 O2 Flow FiO2 Time Delivery Rate 02/17/19 112 04:26 02/17/19 98.1 18 206/119 90 03:53 (148) 02/17/19 Room Air 01:09 Constitutional: alert, distress (mild distress due to fluid overload ) Head: normocephalic Eyes: nl conjunctiva ENMT: nl external ears & nose Neck: supple, jvd Respiratory: congested cough, crackles/rales, diminished breath sounds Cardiovascular: regular rate and rhythm, nl pulses Gastrointestinal: soft, non-tender Musculoskeletal: nl extremities to inspection, muscle weakness, spine non- tender Extremities: normal pulses Neurological: SERVICE ORDER DISPATCHER CHIEF II-XII intact, nl mental status, nl speech, nl strength Skin: nl turgor Lymph: nl lymph nodes Results Result Diagram: 02/16/19200902/16/192009 Results 24hrs Laboratory Tests Test 02/16/19 20:10 02/17/19 02:21 White Blood Count 5.2 # Red Blood Count 2.62 L Hemoglobin 8.0 L Hematocrit 27.6 L Mean Corpuscular Volume 105.3 H Mean Corpuscular Hemoglobin 30.5 Mean Corpuscular Hemoglobin Concent 29.0 L Red Cell Distribution Width 17.3 H Platelet Count 106 L Mean Platelet Volume 11.1 H Immature Granulocytes % 0.400 Neutrophils % 61.0 Lymphocytes % 22.9 Monocytes % 14.7 H Eosinophils % 0.4 Basophils % 0.6 Nucleated Red Blood Cells % 0.0 Immature Granulocytes # 0.020 Neutrophils # 3.2 Lymphocytes # 1.2 Monocytes # 0.8 Eosinophils # 0.0 Basophils # 0.0 Nucleated Red Blood Cells # 0.0 Prothrombin Time 12.9 Prothrombin Time Ratio 1.0 INR International Normalized Ratio 0.96 Activated Partial Thromboplast Time 36.0 H Sodium Level 140 Potassium Level 5.6 H Chloride Level 107 Carbon Dioxide Level 21 Anion Gap 12 Blood Urea Nitrogen 31 H Creatinine 5.10 H Est Glomerular Filtrat Rate mL/min 10 L Glucose Level 87 Calcium Level 8.6 Troponin I < 0.012 < 0.012 Creatine Kinase 20 L Creatine Kinase Index 2.3 Creatinine Kinase MB (Mass) 0.45 Medications Medication Current Medications Ondansetron HCl (Zofran Inj) 4 mg ER BRIDGE PRN IV NAUSEA/VOMITING Last administered on 02/17/19at 02:09; Admin Dose 4 MG; Start 02/16/19 at 23:30; Stop 02/17/19 at 23:29 Acetaminophen (Tylenol Tab) 650 mg ER BRIDGE PRN PO .MILD PAIN 1-3 OR TEMP; Start 02/16/19 at 23:30; Stop 02/17/19 at 23:29 IV Flush (NS 3 ml) 3 ml PER PROTOCOL IV ; Start 02/16/19 at 23:30 Ondansetron HCl (Zofran Tab) 4 mg Q6H PRN PO NAUSEA/VOMITING; Start 02/16/19 at 23:30 Nitroglycerin (Nitroglycerin (Sl Tab) 0.4 Mg) 1 tab Q5M PRN SL .CHEST PAIN; Start 02/16/19 at 23:30 Acetaminophen (Tylenol Tab) 650 mg Q6H PRN PO .PAIN 1-3 OR TEMP Last administered on 02/17/19at 02:10; Admin Dose 650 MG; Start 02/16/19 at 23:30 Morphine Sulfate (morphine) 2 mg Q4H PRN IV .PAIN 7-10 Last administered on 02/16/19at 23:38; Admin Dose 2 MG; Start 02/16/19 at 23:30 Aspirin (Halfprin) 81 mg DAILY PO ; Start 02/17/19 at 09:00 Carvedilol (Coreg) 50 mg Q12 PO Last administered on 02/17/19at 00:32; Admin Dose 50 MG; Start 02/16/19 at 23:30 Clonidine (Catapres) 0.1 mg TID PO ; Start 02/17/19 at 09:00 Hydroxychloroquine Sulfate (Plaquenil) 200 mg DAILY PO ; Start 02/17/19 at 09:00 Mycophenolate Mofetil (Cellcept) 1,000 mg BID PO Last administered on 02/17/19at 00:31; Admin Dose 1,000 MG; Start 02/16/19 at 23:30 Nifedipine (Procardia Xl) 60 mg BID PO Last administered on 02/17/19at 00:31; Admin Dose 60 MG; Start 02/16/19 at 23:30 Pantoprazole (Protonix Tab) 40 mg DAILY@0600 PO Last administered on 02/17/19at 05:07; Admin Dose 40 MG; Start 02/17/19 at 06:00 Prednisone (Prednisone) 5 mg DAILY PO ; Start 02/17/19 at 09:00 Sertraline HCl (Zoloft) 25 mg DAILY PO ; Start 02/17/19 at 09:00 Sevelamer Carbonate (Renvela) 0.8 gm WITH MEALS PO ; Start 02/17/19 at 08:00 Miscellaneous Information 15 mg QHS PRN PO SLEEP; Start 02/16/19 at 23:30; Status UNV Heparin Sodium (Porcine) (Heparin (5000 Units/1ml)) 5,000 unit Q8 SC Last administered on 02/17/19at 02:10; Admin Dose 5,000 UNIT; Start 02/17/19 at 02:00 Hydromorphone HCl (Dilaudid) 0.5 mg Q6H PRN IV SEVERE PAIN LEVEL 7-10 Last administered on 02/17/19at 03:37; Admin Dose 0.5 MG; Start 02/17/19 at 02:30 Labetalol HCl (Labetalol) 10 mg Q4 PRN IV SPB>170; Start 02/17/19 at 05:00 Heparin Sodium (Porcine) (Heparin (1000 Units/ml)) 4,000 unit AFTER DIALYSIS CATHETER ; Start 02/17/19 at 05:30 Albumin Human 100 ml @ 100 mls/hr WITH DIALYSIS PRN IV SBP <90 DURING DIALYSIS; Start 02/17/19 at 05:30 Sodium Chloride (NS) -To prime the dialy... DIRECTED FOR HD PRN IV HD; Start 02/17/19 at 05:30 ARTURO AMADOR MD Feb 17, 2019 05:59
[2019-02-17] MEDS: SEVELAMER CARBONATE 0.8 GM PKT PO SCH ×3 (08:00→17:35)
[2019-02-17] MEDS: predniSONE 5 MG TAB PO SCH (08:11)
[2019-02-17] MEDS: SERTRALINE 50 MG TAB PO SCH (08:12)
--- NOTE | 2019-02-17 08:48 | EN ---
Date/Time of Note Date/Time of Note DATE: 02/17/19 TIME: 08:46 Event Note Medicine Medicine Event Note MECHANICAL LEAD called for nonresponsiveness On arrival, patient very lethargic. Pulse present. Very slow spontaneous respirations. She appeared to have vomited. She was being ambu-bagged on 100% FiO2 with saturations in high 80s. At this point we gave narcan 0.4 with response. We gave another 0.4 narcan again with response. Patient now seems to be ventilating adequately. Will transfer to ICU for further care MECHANICAL LEAD time 20 minutes EMELY ORELLANA MD Feb 17, 2019 08:47
[2019-02-17] MEDS: HYDROXYCHLOROQUINE 200 MG TAB PO SCH (09:00)
[2019-02-17] MEDS ORDERED: ASPIRIN (EC) 81 MG TAB PO SCH (09:00)
--- NOTE | 2019-02-17 09:02 | EN ---
Date/Time of Note Date/Time of Note DATE: 02/17/19 TIME: 09:00 ER Progress Note CODE JOYCE was called On arrival the patient had a pulse back and Dr. Castro was at bedside. The patient is a dialysis patient with volume overload and was just about to go to dialysis. The patient was in respiratory distress upon my arrival required intubation. Endotracheal Intubation by me: Pre assessment performed. See preceding note for details. Pre-oxygenation performed with 100% oxygen RSI: Performed w/o complication or hypoxic events. Medications as ordered. Blade: For MAC ET Tube: 7.5 cm Depth: 21 cm at the lip Intubation confirmed by colorimetric CO2, equal breath sounds, quiet over the stomach. Patient received 20 mg of etomidate and 80 mg of succinylcholine, potassium is 5.6 this morning TIFF CASTRO DO Feb 17, 2019 09:02
[2019-02-17] MEDS ORDERED: MIDAZOLAM 1 MG/ML 2 ML INJ ONE (09:11)
[2019-02-17] MEDS ORDERED: MIDAZOLAM 1 MG/ML 2 ML INJ IV ONE (09:30)
[2019-02-17] MEDS: MIDAZOLAM (DRIP) 50 mg/50 mL 50 ML IV SCH (10:17)
[2019-02-17] MEDS: FENTAnyl (DRIP) 1000 mcg/100mL 100 ML IV SCH (10:17)
[2019-02-17] MEDS: ALBUMIN HUMAN 25% 100 ML IV PRN ×2 (11:26→12:27)
[2019-02-17] MEDS ORDERED: morphine 2 MG INJ IV PRN (11:30)
[2019-02-17] MEDS ORDERED: NORepinephrine 8MG/250 ML (PMX 250 ML ONE (11:53)
--- NOTE | 2019-02-17 12:10 | CONS ---
DATE OF ADMISSION: 02/16/2019 DATE OF CONSULTATION: REASON FOR CONSULT: Respiratory failure. Thank you, Dr. Gil, for this consultation. HISTORY OF PRESENT ILLNESS: This is an unfortunate 33-year-old lady with a history of SLE, end-stage renal failure on hemodialysis with recurrent pulmonary edema and hypoxemic respiratory failure, came in yesterday for chest pain and increased vascular congestion overnight. Had worsening distress thi s morning, severe respiratory failure requiring emergent intubation and transferred to intensive care unit. Upon arrival to ICU, she had significant bloody frothy secretions consistent with pulmonary e laurel, severe hypertension and distress. The patient, as stated had been emergently intubated, centra l line was placed by myself and she is now emergently started on hemodialysis. PAST MEDICAL HISTORY: As above. MEDICATIONS: Per chart. ALLERGIES: HYDROCODONE. SOCIAL HISTORY: She is a nonsmoker, no alcohol, no history of drug use. FAMILY HISTORY: Noncontributory. SYSTEMS REVIEW: A 12-point review of systems was negative other than that mentioned above. PHYSICAL EXAMINATION: GENERAL: Chronically ill appearing lady, orally intubated on mechanical ventilation. VITAL SIGNS: Temperature 98, pulse is 110, blood pressure 137/100, O2 saturation 96%, FIO2 100%. NECK: Supple, no JVD or lymphadenopathy. CARDIAC: S1, S2, no added sounds or murmurs. CHEST: Diminished air entry bilaterally. ABDOMEN: Soft, nontender. No guarding or rebound. EXTREMITIES: No cyanosis, clubbing, 1+ edema. NEUROLOGIC: Generalized weakness. LABORATORY DATA: White count 5.2, hemoglobin 8, platelets of 106. BUN 31, creatinine 5.1. INR 0.96 . DIAGNOSTIC DATA: Chest x-ray shows severe pulmonary edema, possible ARDS. IMPRESSION AND PLAN: 1. Acute hypoxemic respiratory failure, likely secondary to volume overload. 2. End-stage renal failure on hemodialysis. 3. Systemic lupus erythematosus with lupus nephritis. 4. Encephalopathy, toxic metabolic secondary to above. PLAN: 1. Continue with mechanical ventilation, decrease FIO2 and PEEP as tolerated. 2. Emergent hemodialysis with volume removal. 3. Adequate sedation and pain control. 4. DVT and GI prophylaxis. Dictated By: JAKY ZELAYA MD SV/MART Conf#: [id number] DID#: [id number] CC: SONY SOTO MD; LI GIL MD;*[facility]*
--- NOTE | 2019-02-17 12:12 | SP ---
DATE OF PROCEDURE: PROCEDURE: Central line placement. INDICATION: Poor IV access, need for multiple drips. DESCRIPTION OF PROCEDURE: Patient was placed in supine position with right femoral site clean site c leaned and prepped in usual sterile manner. Using direct ultrasound guidance, the femoral vein was l ocated. Large bore needle passed into femoral vein following which guidewire was passed through with out resistance. Following dilatation, triple lumen catheter passed over guidewire without resistance . Patient had good blood flow through all 3 ports. Line was sutured in place. The patient tolerate d the procedure without complication. Dictated By: JKAY ZELAYA MD SV/NTS Conf#: [id number] DID#: [id number] CC: SONY SOTO MD; LI GIL MD;*End*
[2019-02-17] MEDS: NORepinephrine 8MG/250 ML (PMX 250 ML IV SCH ×2 (12:22→22:41)
--- NOTE | 2019-02-17 14:08 | PN ---
Date/Time of Note Date/Time of Note DATE: 02/17/19 TIME: 13:52 Assessment/Plan VTE Prophylaxis Risk score (from Nsg)>0 risk: 1 SCD applied (from Nsg): Yes Pharmacological prophylaxis: heparin Lines/Catheters IV Catheter Type (from Nrsg): Central Line Central line still needed: Yes Reason Cath still needed: other (indicate) Assessment/Plan Assessment/Plan 33 yo woman with history of SLE, lupus nephritis, ESRD on dialysis who presents with chest pain and respiratory distress. #Flash pulmonary edema - As evidenced by sudden onset of respiratory failure, diffuse fluffy infiltrates, pink foam directly from ET tube. - The patient has had several of these episodes requiring emergent intubation at this hospital. - Unclear what trigger causes this. She is compliant with home medications and dialysis. - Currently intubated in the ICU. With previous episodes, respiratory status improves quickly after dialysis. - Vent weaning and extubation per pulmonary. #ESRD - Dialysis per renal #SLE - Continue plaquenil. # chronic cachexia and malnutrition: Encourage diet, # chronic anemia: Secondary likely to underlying end-stage renal disease: Continue to monitor closely. Consult nephrology. # DVT GI prophylaxis: Heparin, PPI Result Diagram: 02/16/19200902/16/192009 Subjective 24 Hr Interval Summary Free Text/Dictation Overnight apparently patient was agitated and required dilaudid, morphine, and IV ativan. This morning around 8:30 there was a rapid response. When I arrived the patient was minimally responsive, dusky skin, in respiratory failure with foam in her mouth. Saturating low 50s. Code blue was called. She did not lose pulses. She was given Narcan x2 with good response. She continued to have severe respiratory distress and was not adequately clearing her own secretions. She was saturating in the mid 80s on nonrebreather facemask. Blood pressure elevated with systolic in the 230s. Auscultation of the chest revealed coarse lung sounds throughout. Dr. Rivera arrived and a decision was made to intubate, which I agree with. She was intubated uneventfully and transported to ICU while getting bag valve respirations. There was copious pink foam coming from the ET tube. Blood pressure remained high. On the monitor she was slightly tachycardic with frequent ectopy. Placed on ventilator at 100% FiO2, saturating high 80s. She was fighting the ventilator so sedated with versed and fentanyl with improvement of saturation. Blood pressure started dropping, Dr. Gayle placed a femoral central line and norepinephrine was started. She was started on dialysis. Exam/Review of Systems Exam Vitals Vital Signs Date Temp Pulse Resp B/P (MAP) Pulse Ox O2 O2 Flow FiO2 Time Delivery Rate 02/17/19 81 13:35 02/17/19 23 89/64 (72) 100 12:45 02/17/19 98.0 Mechanical 12:00 Ventilator 02/17/19 100 10:15 02/17/19 2.0 07:45 Intake and Output 02/16/19 02/16/19 02/17/19 1515:00 23:00 07:00 IntakeIntake Total 200 ml BalanceBalance 200 ml Exam General: Thin woman lying in bed, intubated and sedated. Currently getting di alysis HEENT: Atraumatic, normocephalic. Neck: Supple with full range of motion. Chest: Nontender Lungs: Coarse breath sounds/rales bilaterally. On ventilator. Heart: Normal S1-S2, Regular rhythm and rate. No murmur, S3, or S4 Abdomen: Soft , nontender, nondistended , bowel sounds are present. Extremities: Normal to inspection, no edema no cyanosis Skin: warm, dry, well perfused. Results Results 24hrs Laboratory Tests Test 02/16/19 20:10 02/17/19 02:21 02/17/19 07:54 02/17/19 07:55 White Blood Count 5.2 # Red Blood Count 2.62 L Hemoglobin 8.0 L Hematocrit 27.6 L Mean Corpuscular 105.3 H Volume Mean Corpuscular 30.5 Hemoglobin Mean Corpuscular 29.0 L Hemoglobin Concent Red Cell 17.3 H Distribution Width Platelet Count 106 L Mean Platelet Volume 11.1 H Immature 0.400 Granulocytes % Neutrophils % 61.0 Lymphocytes % 22.9 Monocytes % 14.7 H Eosinophils % 0.4 Basophils % 0.6 Nucleated Red Blood 0.0 Cells % Immature 0.020 Granulocytes # Neutrophils # 3.2 Lymphocytes # 1.2 Monocytes # 0.8 Eosinophils # 0.0 Basophils # 0.0 Nucleated Red Blood 0.0 Cells # Prothrombin Time 12.9 Prothrombin Time 1.0 Ratio INR International 0.96 Normalized Ratio Activated 36.0 H Partial Thromboplast Time Sodium Level 140 Potassium Level 5.6 H Chloride Level 107 Carbon Dioxide Level 21 Anion Gap 12 Blood Urea Nitrogen 31 H Creatinine 5.10 H Est Glomerular 10 L Filtrat Rate mL/min Glucose Level 87 Calcium Level 8.6 Troponin I < 0.012 < 0.012 < 0.012 Creatine Kinase 20 L 22 L Creatine Kinase 2.3 2.5 Index Creatinine Kinase MB 0.45 0.56 (Mass) Hepatitis B Surface NEGATIVE Antigen Hepatitis B Surface NEGATIVE Antibody Test 02/17/19 08:38 Bedside Glucose 88 Medications Medication Current Medications IV Flush (NS 3 ml) 3 ml PER PROTOCOL IV ; Start 02/16/19 at 23:30 Ondansetron HCl (Zofran Tab) 4 mg Q6H PRN PO NAUSEA/VOMITING; Start 02/16/19 at 23:30 Nitroglycerin (Nitroglycerin (Sl Tab) 0.4 Mg) 1 tab Q5M PRN SL .CHEST PAIN; Start 02/16/19 at 23:30 Acetaminophen (Tylenol Tab) 650 mg Q6H PRN PO .PAIN 1-3 OR TEMP Last administered on 02/17/19at 02:10; Admin Dose 650 MG; Start 02/16/19 at 23:30 Aspirin (Halfprin) 81 mg DAILY PO Last administered on 02/17/19 08:11; Admin Dose 81 MG; Start 02/17/19 at 09:00 Carvedilol (Coreg) 50 mg Q12 PO Last administered on 02/17/19 08:11; Admin Dose 50 MG; Start 02/16/19 at 23:30 Clonidine (Catapres) 0.1 mg TID PO Last administered on 02/17/19 08:12; Admin Dose 0.1 MG; Start 02/17/19 at 09:00 Hydroxychloroquine Sulfate (Plaquenil) 200 mg DAILY PO ; Start 02/17/19 at 09:00 Mycophenolate Mofetil (Cellcept) 1,000 mg BID PO Last administered on 02/17/19 08:11; Admin Dose 1,000 MG; Start 02/16/19 at 23:30 Nifedipine (Procardia Xl) 60 mg BID PO Last administered on 02/17/19 08:12; Admin Dose 60 MG; Start 02/16/19 at 23:30 Pantoprazole (Protonix Tab) 40 mg DAILY@0600 PO Last administered on 02/17/19at 05:07; Admin Dose 40 MG; Start 02/17/19 at 06:00 Prednisone (Prednisone) 5 mg DAILY PO Last administered on 02/17/19at 08:11; Admin Dose 5 MG; Start 02/17/19 at 09:00 Sertraline HCl (Zoloft) 25 mg DAILY PO Last administered on 02/17/19at 08:12; Admin Dose 25 MG; Start 02/17/19 at 09:00 Sevelamer Carbonate (Renvela) 0.8 gm WITH MEALS PO ; Start 02/17/19 at 08:00 Zolpidem Tartrate (Ambien) 5 mg HS PRN PO INSOMNIA; Start 02/17/19 at 12:30 Heparin Sodium (Porcine) (Heparin (5000 Units/1ml)) 5,000 unit Q8 SC Last administered on 02/17/19at 09:48; Admin Dose 5,000 UNIT; Start 02/17/19 at 02:00 Labetalol HCl (Labetalol) 10 mg Q4 PRN IV SPB>170; Start 02/17/19 at 05:00 Heparin Sodium (Porcine) (Heparin (1000 Units/ml)) 4,000 unit AFTER DIALYSIS CATHETER ; Start 02/17/19 at 05:30 Albumin Human 100 ml @ 100 mls/hr WITH DIALYSIS PRN IV SBP <90 DURING DIALYSIS Last administered on 02/17/19at 12:27; Admin Dose 100 MLS/HR; Start 02/17/19 at 05:30 Sodium Chloride (NS) -To prime the dialy... DIRECTED FOR HD PRN IV HD; Start 02/17/19 at 05:30 Hydromorphone HCl (Dilaudid) 0.5 mg Q8H PRN IV SEVERE PAIN LEVEL 7-10; Start 02/17/19 at 10:30 Midazolam HCl 50 ml @ 1 mls/hr PER PROTOCOL IV Last administered on 02/17/19at 10:17; Admin Dose 8 MLS/HR; Start 02/17/19 at 09:30 Fentanyl 100 ml @ 2.5 mls/hr PER PROTOCOL IV Last administered on 02/17/19at 10:17; Admin Dose 10 MLS/HR; Start 02/17/19 at 10:30 Norepinephrine 250 ml @ 1.875 mls/ hr TITRATE IV Last administered on 02/17/19at 12:22; Admin Dose 28.125 MLS/HR; Start 02/17/19 at 12:00 LI GIL MD Feb 17, 2019 14:02
[2019-02-17] MEDS ORDERED: PHENYLephrine 20MG IN 250 ML 250 ML ONE (22:59)
[2019-02-17] MEDS: PHENYLephrine 20MG IN 250 ML 250 ML IV SCH (23:09)
[2019-02-18] VITALS (120 sets, daily range): BP systolic 82–114; BP diastolic 53–74; PULSE 67–99; RESP 15–41
[2019-02-18] MEDS: PHENYLephrine 20MG IN 250 ML 250 ML IV SCH (00:33)
[2019-02-18] MEDS: PHENYLephrine 80 MG in DEXTROSE 5% 242 ML IV SCH ×3 (02:22→20:04)
[2019-02-18] MEDS: PANTOPRAZOLE (EC) 40 MG TAB PO SCH (06:03)
[2019-02-18] MEDS: HEPARIN 5,000 UNIT/1 ML VIAL SC SCH (06:06)
--- NOTE | 2019-02-18 08:14 | CONS ---
Assessment/Plan Assessment/Plan Assessment/Plan (Daily) 1. acute hypoxic respiratory distress due to acute pulmonary edema 2. ESRD on HD 4 times a week at [facility] schedule 3. Acute chest pain 4. Hyperkalemia 5. h/o Lupus 6. h/o HTN 7. H/o HL 8. H/o seizure disorder Plan: s/p HD 2 days in row, la[facility] 6 lite rrmeoved, Bp stable, pt is more awake today AM, wants to have ET Tube removed HD ordered for tuesday also pt follows at [facility] unit and she gets HD 4 times a week on Tuesday, Tuesday, and Tuesday weaning and extubation plan as per pulmonary will follow up Consultation Date/Type/Reason Admit Date/Time Feb 16, 2019 at 23:07 Initial Consult Date 02/17/19 Type of Consult NEPHROLOGY Requesting Provider: SONY SOTO Date/Time of Note DATE: 02/18/19 TIME: 08:14 Exam/Review of Systems Exam Vitals Vital Signs Date Temp Pulse Resp B/P (MAP) Pulse Ox O2 O2 Flow FiO2 Time Delivery Rate 02/18/19 94 27 100 07:00 02/18/19 105/64 06:45 (78) 02/18/19 40 05:25 02/18/19 99.0 04:00 02/17/19 Mechanical 20:00 Ventilator 02/17/19 2.0 07:45 Intake and Output 02/17/19 02/17/19 02/18/19 1515:00 23:00 07:00 IntakeIntake Total 478.00 ml 66.0 ml 700.265 ml OutputOutput Total 2400 ml BalanceBalance -1922.00 ml 66.0 ml 700.265 ml Exam GENERAL: Chronically ill appearing lady, orally intubated on mechanical ventilation. VITAL SIGNS: NECK: Supple, no JVD or lymphadenopathy. CARDIAC: S1, S2, no added sounds or murmurs. CHEST: Diminished air entry bilaterally. ABDOMEN: Soft, nontender. No guarding or rebound. EXTREMITIES: No cyanosis, clubbing, 1+ edema. NEUROLOGIC: Generalized weakness. Results Result Diagram: 02/18/19 0456 02/18/19 0456 Results 24hrs Laboratory Tests Test 02/17/19 08:38 02/17/19 09:20 02/18/19 04:56 Bedside Glucose 88 Blood Gas Specimen Source Blood arterial Arterial Blood Date Drawn 02/17/2019 3:20:47 PM Arterial Blood pH 7.471 H (Temp corrected) Arterial Blood pCO2 38.3 (Temp correct) Arterial Blood pO2 327.4 H (Temp corrected) Arterial Blood HCO3 27.3 H Arterial Blood Base Excess 3.5 H Arterial Blood 99.6 H Oxygen Saturation Ck Test ACCEPTAB Arterial Blood Gas Right Radial Puncture Site Arterial 0.2 Blood Carboxyhemoglobin Arterial Blood Methemoglobin 0.3 Blood Gas A-a O2 347.3 H Differential Oxyhemoglobin Percent 99.1 H Blood Gas Temperature 37.0 Blood Gas Respiration Rate 20.0 Blood Gas Actual 20 Respiration Rate Blood Gas Modality VENT - AC FiO2 100.0 Blood Gas Low PEEP Setting 5.0 Blood Gas Inspiratory 45.0 Pressure Blood Gas Notified Whom DT Blood Gas Notified Time 02/17/2019 3:34:38 PM White Blood Count 3.0 #L Red Blood Count 2.64 L Hemoglobin 8.0 L Hematocrit 26.8 L Mean Corpuscular Volume 101.5 H Mean Corpuscular Hemoglobin 30.3 Mean Corpuscular 29.9 L Hemoglobin Concent Red Cell Distribution Width 17.3 H Platelet Count 84 #L Mean Platelet Volume 12.3 H Immature Granulocytes % 1.100 H Neutrophils % Lymphocytes % Monocytes % Eosinophils % Nucleated Red Blood Cells % 0.1 H Immature Granulocytes # 0.200 H Neutrophils # Lymphocytes # Monocytes # Eosinophils # Sodium Level 139 Potassium Level 4.8 Chloride Level 100 Carbon Dioxide Level 26 Anion Gap 13 Blood Urea Nitrogen 30 H Creatinine 4.33 H Est Glomerular Filtrat 12 L Rate mL/min Glucose Level 89 Calcium Level 9.2 Total Bilirubin 0.5 Direct Bilirubin 0.00 Indirect Bilirubin 0.5 Aspartate Amino 588 H Transf (AST/SGOT) Alanine 293 H Aminotransferase (ALT/SGPT) Alkaline Phosphatase 86 Total Protein 7.0 Albumin 3.8 Globulin 3.20 Albumin/Globulin Ratio 1.18 Medications Medication Current Medications IV Flush (NS 3 ml) 3 ml PER PROTOCOL IV ; Start 02/16/19 at 23:30 Ondansetron HCl (Zofran Tab) 4 mg Q6H PRN PO NAUSEA/VOMITING; Start 02/16/19 at 23:30 Nitroglycerin (Nitroglycerin (Sl Tab) 0.4 Mg) 1 tab Q5M PRN SL .CHEST PAIN; Start 02/16/19 at 23:30 Acetaminophen (Tylenol Tab) 650 mg Q6H PRN PO .PAIN 1-3 OR TEMP Last administered on 02/17/19 21:54; Admin Dose 650 MG; Start 02/16/19 at 23:30 Aspirin (Halfprin) 81 mg DAILY PO Last administered on 02/17/19 08:11; Admin D ose 81 MG; Start 02/17/19 at 09:00 Carvedilol (Coreg) 50 mg Q12 PO Last administered on 02/17/19 21:55; Admin Dose 50 MG; Start 02/16/19 at 23:30 Clonidine (Catapres) 0.1 mg TID PO Last administered on 02/17/19 21:55; Admin Dose 0.1 MG; Start 02/17/19 at 09:00 Hydroxychloroquine Sulfate (Plaquenil) 200 mg DAILY PO ; Start 02/17/19 at 09:00 Mycophenolate Mofetil (Cellcept) 1,000 mg BID PO Last administered on 02/17/19 08:11; Admin Dose 1,000 MG; Start 02/16/19 at 23:30 Nifedipine (Procardia Xl) 60 mg BID PO Last administered on 02/17/19 21:55; Admin Dose 60 MG; Start 02/16/19 at 23:30 Pantoprazole (Protonix Tab) 40 mg DAILY@0600 PO Last administered on 02/18/19 06:03; Admin Dose 40 MG; Start 02/17/19 at 06:00 Prednisone (Prednisone) 5 mg DAILY PO Last administered on 02/17/19 08:11; Admin Dose 5 MG; Start 02/17/19 at 09:00 Sertraline HCl (Zoloft) 25 mg DAILY PO Last administered on 02/17/19 08:12; Admin Dose 25 MG; Start 02/17/19 at 09:00 Sevelamer Carbonate (Renvela) 0.8 gm WITH MEALS PO ; Start 02/17/19 at 08:00 Zolpidem Tartrate (Ambien) 5 mg HS PRN PO INSOMNIA; Start 02/17/19 at 12:30 Heparin Sodium (Porcine) (Heparin (5000 Units/1ml)) 5,000 unit Q8 SC Last adm inistered on 02/18/19 06:06; Admin Dose 5,000 UNIT; Start 02/17/19 at 02:00 Labetalol HCl (Labetalol) 10 mg Q4 PRN IV SPB>170; Start 02/17/19 at 05:00 Heparin Sodium (Porcine) (Heparin (1000 Units/ml)) 4,000 unit AFTER DIALYSIS CATHETER ; Start 02/17/19 at 05:30 Albumin Human 100 ml @ 100 mls/hr WITH DIALYSIS PRN IV SBP <90 DURING DIALYSIS Last administered on 02/17/19at 12:27; Admin Dose 100 MLS/HR; Start 02/17/19 at 05:30 Sodium Chloride (NS) -To prime the dialy... DIRECTED FOR HD PRN IV HD; Start 02/17/19 at 05:30 Hydromorphone HCl (Dilaudid) 0.5 mg Q8H PRN IV SEVERE PAIN LEVEL 7-10; Start 02/17/19 at 10:30 Midazolam HCl 50 ml @ 1 mls/hr PER PROTOCOL IV Last administered on 02/17/19at 10:17; Admin Dose 8 MLS/HR; Start 02/17/19 at 09:30 Fentanyl 100 ml @ 2.5 mls/hr PER PROTOCOL IV Last administered on 02/17/19at 10:17; Admin Dose 10 MLS/HR; Start 02/17/19 at 10:30 Norepinephrine 250 ml @ 1.875 mls/ hr TITRATE IV Last administered on 02/17/19at 22:41; Admin Dose 3.75 MLS/HR; Start 02/17/19 at 12:00 Phenylephrine HCl 250 ml @ 75 mls/hr TITRATE IV Last administered on 02/18/19at 00:33; Admin Dose 187.5 MLS/HR; Start 02/17/19 at 23:00 Phenylephrine HCl 80 mg/Dextrose 250 ml @ 18.75 mls/ hr TITRATE IV Last administered on 02/18/19at 02:22; Admin Dose 46.88 MLS/HR; Start 02/18/19 at 00:30 ARTURO AMADRO MD Feb 18, 2019 08:14
[2019-02-18] MEDS: NIFEdipine (XL) 60 MG TAB PO SCH ×2 (09:00→20:01)
--- NOTE | 2019-02-18 09:18 | CONS ---
Consult Date/Type/Reason Admit Date/Time Feb 17, 2019 at 09:30 Initial Consult Date 02/17/19 Type of Consult Pulmonary Requesting Provider: SONY SOTO Date/Time of Note DATE: 02/18/19 TIME: 09:16 Subjective Patient awake alert this morning on mechanical ventilation requesting endotracheal tube to be removed. Fever of 102. Chest x-ray shows significant improvement in aeration. She continues vasopressor support. Objective Vital Signs Date Temp Pulse Resp B/P (MAP) Pulse Ox O2 O2 Flow FiO2 Time Delivery Rate 02/18/19 98 08:00 02/18/19 27 100 07:00 02/18/19 105/64 06:45 (78) 02/18/19 40 05:25 02/18/19 99.0 04:00 02/17/19 Mechanical 20:00 Ventilator 02/17/19 2.0 07:45 Intake and Output 02/17/19 02/17/19 02/18/19 1515:00 23:00 07:00 IntakeIntake Total 478.00 ml 66.0 ml 700.265 ml OutputOutput Total 2400 ml BalanceBalance -1922.00 ml 66.0 ml 700.265 ml Exam PHYSICAL EXAMINATION: GENERAL: Chronically ill appearing lady, orally intubated on mechanical ventilation. VITAL SIGNS: NECK: Supple, no JVD or lymphadenopathy. CARDIAC: S1, S2, no added sounds or murmurs. CHEST: Diminished air entry bilaterally. ABDOMEN: Soft, nontender. No guarding or rebound. EXTREMITIES: No cyanosis, clubbing, 1+ edema. NEUROLOGIC: Generalized weakness. Vent Setting Ventilator Support Mode: AC Fraction of Inspired Oxygen pe: 40 Positive End Expiratory Pressu: 5.0 Results/Medications Result Diagram: 02/18/19 0456 02/18/19 0456 Results 24 hrs Laboratory Tests Test 02/17/19 09:20 02/18/19 04:56 02/18/19 07:00 Blood Gas Specimen Blood arterial Blood arterial Source Arterial Blood Date 02/17/2019 3:20:47 PM 02/18/2019 8:35:59 AM Drawn Arterial Blood pH 7.471 H 7.488 H (Temp corrected) Arterial Blood pCO2 38.3 32.5 L (Temp correct) Arterial Blood pO2 327.4 H 81.5 (Temp corrected) Arterial Blood HCO3 27.3 H 24.1 Arterial Blood Base 3.5 H 1.1 Excess Arterial Blood 99.6 H 96.0 Oxygen Saturation Ck Test ACCEPTAB ACCEPTAB Arterial Blood Gas Right Radial Right Radial Puncture Site Arterial 0.2 0.4 Blood Carboxyhemoglob in Arterial Blood 0.3 0.1 Methemoglobin Blood Gas A-a O2 347.3 H 166.3 H Differential Oxyhemoglobin Percent 99.1 H 95.5 Blood Gas Temperature 37.0 37.0 Blood Gas Respiration 20.0 20.0 Rate Blood Gas Actual 20 22 Respiration Rate Blood Gas Modality VENT - AC VENT - AC FiO2 100.0 40.0 Blood Gas Low PEEP 5.0 5.0 Setting Blood Gas Inspiratory 45.0 Pressure Blood Gas Notified DT DT Whom Blood Gas Notified 02/17/2019 3:34:38 PM 02/18/2019 9:00:01 AM Time White Blood Count 3.0 #L Red Blood Count 2.64 L Hemoglobin 8.0 L Hematocrit 26.8 L Mean Corpuscular 101.5 H Volume Mean Corpuscular 30.3 Hemoglobin Mean Corpuscular 29.9 L Hemoglobin Concent Red Cell Distribution 17.3 H Width Platelet Count 84 #L Mean Platelet Volume 12.3 H Immature Granulocytes 1.100 H % Neutrophils % Lymphocytes % Monocytes % Eosinophils % Nucleated Red Blood 0.1 H Cells % Immature Granulocytes 0.200 H # Neutrophils # Lymphocytes # Monocytes # Eosinophils # Sodium Level 139 Potassium Level 4.8 Chloride Level 100 Carbon Dioxide Level 26 Anion Gap 13 Blood Urea Nitrogen 30 H Creatinine 4.33 H Est Glomerular 12 L Filtrat Rate mL/min Glucose Level 89 Calcium Level 9.2 Total Bilirubin 0.5 Direct Bilirubin 0.00 Indirect Bilirubin 0.5 Aspartate Amino 588 H Transf (AST/SGOT) Alanine 293 H Aminotransferase (ALT /SGPT) Alkaline Phosphatase 86 Total Protein 7.0 Albumin 3.8 Globulin 3.20 Albumin/Globulin 1.18 Ratio Blood Gas Tidal 450.0 Volume Medications Current Medications IV Flush (NS 3 ml) 3 ml PER PROTOCOL IV ; Start 02/16/19 at 23:30 Ondansetron HCl (Zofran Tab) 4 mg Q6H PRN PO NAUSEA/VOMITING; Start 02/16/19 at 23:30 Nitroglycerin (Nitroglycerin (Sl Tab) 0.4 Mg) 1 tab Q5M PRN SL .CHEST PAIN; Start 02/16/19 at 23:30 Acetaminophen (Tylenol Tab) 650 mg Q6H PRN PO .PAIN 1-3 OR TEMP Last administer ed on 02/17/19 21:54; Admin Dose 650 MG; Start 02/16/19 at 23:30 Aspirin (Halfprin) 81 mg DAILY PO Last administered on 02/17/19 08:11; Admin Dose 81 MG; Start 02/17/19 at 09:00 Carvedilol (Coreg) 50 mg Q12 PO Last administered on 02/17/19 21:55; Admin Dose 50 MG; Start 02/16/19 at 23:30; Status Hold Clonidine (Catapres) 0.1 mg TID PO Last administered on 02/17/19 21:55; Admin Dose 0.1 MG; Start 02/17/19 at 09:00; Status Hold Hydroxychloroquine Sulfate (Plaquenil) 200 mg DAILY PO ; Start 02/17/19 at 09:00 Mycophenolate Mofetil (Cellcept) 1,000 mg BID PO Last administered on 02/17/19 08:11; Admin Dose 1,000 MG; Start 02/16/19 at 23:30 Nifedipine (Procardia Xl) 60 mg BID PO Last administered on 02/17/19 21:55; Admin Dose 60 MG; Start 02/16/19 at 23:30 Pantoprazole (Protonix Tab) 40 mg DAILY@0600 PO Last administered on 02/18/19 06:03; Admin Dose 40 MG; Start 02/17/19 at 06:00 Prednisone (Prednisone) 5 mg DAILY PO Last administered on 02/17/19 08:11; Admin Dose 5 MG; Start 02/17/19 at 09:00 Sertraline HCl (Zoloft) 25 mg DAILY PO Last administered on 02/17/19 08:12; Ad min Dose 25 MG; Start 02/17/19 at 09:00 Sevelamer Carbonate (Renvela) 0.8 gm WITH MEALS PO ; Start 02/17/19 at 08:00 Zolpidem Tartrate (Ambien) 5 mg HS PRN PO INSOMNIA; Start 02/17/19 at 12:30 Heparin Sodium (Porcine) (Heparin (5000 Units/1ml)) 5,000 unit Q8 SC Last administered on 02/18/19at 06:06; Admin Dose 5,000 UNIT; Start 02/17/19 at 02:00 Labetalol HCl (Labetalol) 10 mg Q4 PRN IV SPB>170; Start 02/17/19 at 05:00 Heparin Sodium (Porcine) (Heparin (1000 Units/ml)) 4,000 unit AFTER DIALYSIS CATHETER ; Start 02/17/19 at 05:30 Albumin Human 100 ml @ 100 mls/hr WITH DIALYSIS PRN IV SBP <90 DURING DIALYSIS Last administered on 02/17/19at 12:27; Admin Dose 100 MLS/HR; Start 02/17/19 at 05:30 Sodium Chloride (NS) -To prime the dialy... DIRECTED FOR HD PRN IV HD; Start 02/17/19 at 05:30 Hydromorphone HCl (Dilaudid) 0.5 mg Q8H PRN IV SEVERE PAIN LEVEL 7-10; Start 02/17/19 at 10:30 Midazolam HCl 50 ml @ 1 mls/hr PER PROTOCOL IV Last administered on 02/17/19at 10:17; Admin Dose 8 MLS/HR; Start 02/17/19 at 09:30 Fentanyl 100 ml @ 2.5 mls/hr PER PROTOCOL IV Last administered on 02/17/19at 10:17; Admin Dose 10 MLS/HR; Start 02/17/19 at 10:30 Norepinephrine 250 ml @ 1.875 mls/ hr TITRATE IV Last administered on 02/17/19at 22:41; Admin Dose 3.75 MLS/HR; Start 02/17/19 at 12:00 Phenylephrine HCl 250 ml @ 75 mls/hr TITRATE IV Last administered on 02/18/19at 00:33; Admin Dose 187.5 MLS/HR; Start 02/17/19 at 23:00 Phenylephrine HCl 80 mg/Dextrose 250 ml @ 18.75 mls/ hr TITRATE IV Last administered on 02/18/19at 02:22; Admin Dose 46.88 MLS/HR; Start 02/18/19 at 00:30 Piperacillin Sod/ Tazobactam Sod 100 ml @ 200 mls/hr Q6 IVPB ; Start 02/18/19 at 12:00; Status UNV Assessment/Plan Hospital Course (Demo Recall) IMPRESSION AND PLAN: 1. Acute hypoxemic respiratory failure, likely secondary to volume overload. Probable component of aspiration pneumonia also. 2. End-stage renal failure on hemodialysis. 3. Systemic lupus erythematosus with lupus nephritis. 4. Encephalopathy, toxic metabolic secondary to above. PLAN: 1. Continue with mechanical ventilation, decrease FIO2 and PEEP as tolerated. Anticipate weaning trial tomorrow. 2. Emergent hemodialysis with volume removal. 3. Adequate sedation and pain control. 4. DVT and GI prophylaxis. 5. Blood cultures and antibiotics per primary team. Critical care time 40 minutes. JAKY ZELAYA MD, [facility] Feb 18, 2019 09:17
--- NOTE | 2019-02-18 09:19 | PN ---
Date/Time of Note Date/Time of Note DATE: 02/18/19 TIME: 09:13 Assessment/Plan VTE Prophylaxis Risk score (from Ns)>0 risk: 4 SCD applied (from Ns): Yes Pharmacological prophylaxis: NA/contraindicated Pharm contraindication: thrombocytopenia Lines/Catheters IV Catheter Type (from Nrsg): Central Line Central line still needed: Yes Urinary Cath still in place: Yes Reason Cath still needed: other (indicate) (intubated) Assessment/Plan Assessment/Plan 33 yo woman with history of SLE, lupus nephritis, ESRD on dialysis who presents with chest pain and respiratory distress. #Flash pulmonary edema - As evidenced by sudden onset of respiratory failure, diffuse fluffy infiltrates, pink foam directly from ET tube on 02/17. - The patient has had several of these episodes requiring emergent intubation at this hospital. - Unclear what trigger causes this. She is compliant with home medications and dialysis. - Currently intubated in the ICU. With previous episodes, respiratory status improves quickly after dialysis. - Vent weaning and extubation per pulmonary. #Fever #Hypotension requiring pressors - rule out septic shock. - Blood cultures ordered. - Empiric zosyn q6h #ESRD - Dialysis per renal #SLE - Continue plaquenil. # chronic cachexia and malnutrition: Encourage diet, # chronic anemia: Secondary likely to underlying end-stage renal disease: Continue to monitor closely. Consult nephrology. # DVT GI prophylaxis: Heparin, PPI Result Diagram: 02/18/19 0456 02/18/19 0456 Results 24hrs Laboratory Tests Test 02/17/19 09:20 02/18/19 04:56 02/18/19 07:00 Blood Gas Specimen Blood arterial Blood arterial Source Arterial Blood Date 02/17/2019 3:20:47 PM 02/18/2019 8:35:59 AM Drawn Arterial Blood pH 7.471 H 7.488 H (Temp corrected) Arterial Blood pCO2 38.3 32.5 L (Temp correct) Arterial Blood pO2 327.4 H 81.5 (Temp corrected) Arterial Blood HCO3 27.3 H 24.1 Arterial Blood Base 3.5 H 1.1 Excess Arterial Blood 99.6 H 96.0 Oxygen Saturation Ck Test ACCEPTAB ACCEPTAB Arterial Blood Gas Right Radial Right Radial Puncture Site Arterial 0.2 0.4 Blood Carboxyhemoglob in Arterial Blood 0.3 0.1 Methemoglobin Blood Gas A-a O2 347.3 H 166.3 H Differential Oxyhemoglobin Percent 99.1 H 95.5 Blood Gas Temperature 37.0 37.0 Blood Gas Respiration 20.0 20.0 Rate Blood Gas Actual 20 22 Respiration Rate Blood Gas Modality VENT - AC VENT - AC FiO2 100.0 40.0 Blood Gas Low PEEP 5.0 5.0 Setting Blood Gas Inspiratory 45.0 Pressure Blood Gas Notified DT DT Whom Blood Gas Notified 02/17/2019 3:34:38 PM 02/18/2019 9:00:01 AM Time White Blood Count 3.0 #L Red Blood Count 2.64 L Hemoglobin 8.0 L Hematocrit 26.8 L Mean Corpuscular 101.5 H Volume Mean Corpuscular 30.3 Hemoglobin Mean Corpuscular 29.9 L Hemoglobin Concent Red Cell Distribution 17.3 H Width Platelet Count 84 #L Mean Platelet Volume 12.3 H Immature Granulocytes 1.100 H % Neutrophils % Lymphocytes % Monocytes % Eosinophils % Nucleated Red Blood 0.1 H Cells % Immature Granulocytes 0.200 H # Neutrophils # Lymphocytes # Monocytes # Eosinophils # Sodium Level 139 Potassium Level 4.8 Chloride Level 100 Carbon Dioxide Level 26 Anion Gap 13 Blood Urea Nitrogen 30 H Creatinine 4.33 H Est Glomerular 12 L Filtrat Rate mL/min Glucose Level 89 Calcium Level 9.2 Total Bilirubin 0.5 Direct Bilirubin 0.00 Indirect Bilirubin 0.5 Aspartate Amino 588 H Transf (AST/SGOT) Alanine 293 H Aminotransferase (ALT /SGPT) Alkaline Phosphatase 86 Total Protein 7.0 Albumin 3.8 Globulin 3.20 Albumin/Globulin 1.18 Ratio Blood Gas Tidal 450.0 Volume Subjective 24 Hr Interval Summary Free Text/Dictation Yesterday afternoon after dialysis, normotensive off pressors. But got clonidine and coreg in the evening and pressures dropped again; now on phenylephrine gtt. Also last night febrile to 102. Currently sedated Oxygenating well on minimal vent settings. Exam/Review of Systems Exam Vitals Vital Signs Date Temp Pulse Resp B/P (MAP) Pulse Ox O2 O2 Flow FiO2 Time Delivery Rate 02/18/19 98 08:00 02/18/19 27 100 07:00 02/18/19 105/64 06:45 (78) 02/18/19 40 05:25 02/18/19 99.0 04:00 02/17/19 Mechanical 20:00 Ventilator 02/17/19 2.0 07:45 Intake and Output 02/17/19 02/17/19 02/18/19 1515:00 23:00 07:00 IntakeIntake Total 478.00 ml 66.0 ml 700.265 ml OutputOutput Total 2400 ml BalanceBalance -1922.00 ml 66.0 ml 700.265 ml Exam General: Thin woman lying in bed, intubated and sedated. HEENT: Atraumatic, normocephalic. Neck: Supple with full range of motion. Chest: Nontender Lungs: Clear mechanical breath sounds bilaterally. Heart: Normal S1-S2, Regular rhythm and rate. No murmur, S3, or S4 Abdomen: Soft , nontender, nondistended , bowel sounds are present. Extremities: Normal to inspection, no edema no cyanosis. Right femoral line clean/dry/intact. Skin: warm, dry, well perfused. Results Results 24hrs Laboratory Tests Test 02/17/19 09:20 02/18/19 04:56 02/18/19 07:00 Blood Gas Specimen Blood arterial Blood arterial Source Arterial Blood Date 02/17/2019 3:20:47 PM 02/18/2019 8:35:59 AM Drawn Arterial Blood pH 7.471 H 7.488 H (Temp corrected) Arterial Blood pCO2 38.3 32.5 L (Temp correct) Arterial Blood pO2 327.4 H 81.5 (Temp corrected) Arterial Blood HCO3 27.3 H 24.1 Arterial Blood Base 3.5 H 1.1 Excess Arterial Blood 99.6 H 96.0 Oxygen Saturation Ck Test ACCEPTAB ACCEPTAB Arterial Blood Gas Right Radial Right Radial Puncture Site Arterial 0.2 0.4 Blood Carboxyhemoglob in Arterial Blood 0.3 0.1 Methemoglobin Blood Gas A-a O2 347.3 H 166.3 H Differential Oxyhemoglobin Percent 99.1 H 95.5 Blood Gas Temperature 37.0 37.0 Blood Gas Respiration 20.0 20.0 Rate Blood Gas Actual 20 22 Respiration Rate Blood Gas Modality VENT - AC VENT - AC FiO2 100.0 40.0 Blood Gas Low PEEP 5.0 5.0 Setting Blood Gas Inspiratory 45.0 Pressure Blood Gas Notified DT DT Whom Blood Gas Notified 02/17/2019 3:34:38 PM 02/18/2019 9:00:01 AM Time White Blood Count 3.0 #L Red Blood Count 2.64 L Hemoglobin 8.0 L Hematocrit 26.8 L Mean Corpuscular 101.5 H Volume Mean Corpuscular 30.3 Hemoglobin Mean Corpuscular 29.9 L Hemoglobin Concent Red Cell Distribution 17.3 H Width Platelet Count 84 #L Mean Platelet Volume 12.3 H Immature Granulocytes 1.100 H % Neutrophils % Lymphocytes % Monocytes % Eosinophils % Nucleated Red Blood 0.1 H Cells % Immature Granulocytes 0.200 H # Neutrophils # Lymphocytes # Monocytes # Eosinophils # Sodium Level 139 Potassium Level 4.8 Chloride Level 100 Carbon Dioxide Level 26 Anion Gap 13 Blood Urea Nitrogen 30 H Creatinine 4.33 H Est Glomerular 12 L Filtrat Rate mL/min Glucose Level 89 Calcium Level 9.2 Total Bilirubin 0.5 Direct Bilirubin 0.00 Indirect Bilirubin 0.5 Aspartate Amino 588 H Transf (AST/SGOT) Alanine 293 H Aminotransferase (ALT /SGPT) Alkaline Phosphatase 86 Total Protein 7.0 Albumin 3.8 Globulin 3.20 Albumin/Globulin 1.18 Ratio Blood Gas Tidal 450.0 Volume Medications Medication Current Medications IV Flush (NS 3 ml) 3 ml PER PROTOCOL IV ; Start 02/16/19 at 23:30 Ondansetron HCl (Zofran Tab) 4 mg Q6H PRN PO NAUSEA/VOMITING; Start 02/16/19 at 23:30 Nitroglycerin (Nitroglycerin (Sl Tab) 0.4 Mg) 1 tab Q5M PRN SL .CHEST PAIN; Start 02/16/19 at 23:30 Acetaminophen (Tylenol Tab) 650 mg Q6H PRN PO .PAIN 1-3 OR TEMP Last administered on 02/17/19at 21:54; Admin Dose 650 MG; Start 02/16/19 at 23:30 Aspirin (Halfprin) 81 mg DAILY PO Last administered on 02/17/19at 08:11; Admin Dose 81 MG; Start 02/17/19 at 09:00 Carvedilol (Coreg) 50 mg Q12 PO Last administered on 02/17/19at 21:55; Admin Dose 50 MG; Start 02/16/19 at 23:30 Clonidine (Catapres) 0.1 mg TID PO Last administered on 02/17/19at 21:55; Admin Dose 0.1 MG; Start 02/17/19 at 09:00 Hydroxychloroquine Sulfate (Plaquenil) 200 mg DAILY PO ; Start 02/17/19 at 09:00 Mycophenolate Mofetil (Cellcept) 1,000 mg BID PO Last administered on 02/17/19at 08:11; Admin Dose 1,000 MG; Start 02/16/19 at 23:30 Nifedipine (Procardia Xl) 60 mg BID PO Last administered on 02/17/19at 21:55; Admin Dose 60 MG; Start 02/16/19 at 23:30 Pantoprazole (Protonix Tab) 40 mg DAILY@0600 PO Last administered on 02/18/19at 06:03; Admin Dose 40 MG; Start 02/17/19 at 06:00 Prednisone (Prednisone) 5 mg DAILY PO Last administered on 02/17/19at 08:11; Admin Dose 5 MG; Start 02/17/19 at 09:00 Sertraline HCl (Zoloft) 25 mg DAILY PO Last administered on 02/17/19at 08:12; Admin Dose 25 MG; Start 02/17/19 at 09:00 Sevelamer Carbonate (Renvela) 0.8 gm WITH MEALS PO ; Start 02/17/19 at 08:00 Zolpidem Tartrate (Ambien) 5 mg HS PRN PO INSOMNIA; Start 02/17/19 at 12:30 Heparin Sodium (Porcine) (Heparin (5000 Units/1ml)) 5,000 unit Q8 SC Last administered on 02/18/19at 06:06; Admin Dose 5,000 UNIT; Start 02/17/19 at 02:00 Labetalol HCl (Labetalol) 10 mg Q4 PRN IV SPB>170; Start 02/17/19 at 05:00 Heparin Sodium (Porcine) (Heparin (1000 Units/ml)) 4,000 unit AFTER DIALYSIS CATHETER ; Start 02/17/19 at 05:30 Albumin Human 100 ml @ 100 mls/hr WITH DIALYSIS PRN IV SBP <90 DURING DIALYSIS Last administered on 02/17/19at 12:27; Admin Dose 100 MLS/HR; Start 02/17/19 at 05:30 Sodium Chloride (NS) -To prime the dialy... DIRECTED FOR HD PRN IV HD; Start 02/17/19 at 05:30 Hydromorphone HCl (Dilaudid) 0.5 mg Q8H PRN IV SEVERE PAIN LEVEL 7-10; Start 02/17/19 at 10:30 Midazolam HCl 50 ml @ 1 mls/hr PER PROTOCOL IV Last administered on 02/17/19at 10:17; Admin Dose 8 MLS/HR; Start 02/17/19 at 09:30 Fentanyl 100 ml @ 2.5 mls/hr PER PROTOCOL IV Last administered on 02/17/19at 10:17; Admin Dose 10 MLS/HR; Start 02/17/19 at 10:30 Norepinephrine 250 ml @ 1.875 mls/ hr TITRATE IV Last administered on 02/17/19at 22:41; Admin Dose 3.75 MLS/HR; Start 02/17/19 at 12:00 Phenylephrine HCl 250 ml @ 75 mls/hr TITRATE IV Last administered on 02/18/19at 00:33; Admin Dose 187.5 MLS/HR; Start 02/17/19 at 23:00 Phenylephrine HCl 80 mg/Dextrose 250 ml @ 18.75 mls/ hr TITRATE IV Last administered on 02/18/19at 02:22; Admin Dose 46.88 MLS/HR; Start 02/18/19 at 00:30 LI GIL MD Feb 18, 2019 09:18
[2019-02-18] MEDS ORDERED: ASPIRIN 81 MG TAB ONE (09:36)
[2019-02-18] MEDS: SEVELAMER CARBONATE 0.8 GM PKT PO SCH ×3 (09:37→18:17)
[2019-02-18] MEDS: MYCOPHENOLATE 250 MG CAP PO SCH ×2 (09:38→21:39)
[2019-02-18] MEDS: ACETAMINOPHEN 325 MG TAB PO PRN ×2 (09:38→16:57)
[2019-02-18] MEDS: SERTRALINE 50 MG TAB PO SCH (09:38)
[2019-02-18] MEDS: predniSONE 5 MG TAB PO SCH (09:38)
[2019-02-18] MEDS: ASPIRIN 81 MG TAB NGT SCH (09:48)
[2019-02-18] MEDS: MIDAZOLAM (DRIP) 50 mg/50 mL 50 ML IV SCH (13:38)
[2019-02-18] MEDS: PIPER-TAZO 2.25 GM (PMX) 50 ML IVPB SCH ×2 (14:19→21:39)
[2019-02-18] MEDS: HYDROXYCHLOROQUINE 200 MG TAB PO SCH (14:20)
[2019-02-18] MEDS: FENTAnyl (DRIP) 1000 mcg/100mL 100 ML IV SCH (17:06)
[2019-02-19] VITALS (108 sets, daily range): BP systolic 70–128; BP diastolic 57–85; PULSE 66–93; RESP 18–23
[2019-02-19] MEDS: PHENYLephrine 80 MG in DEXTROSE 5% 242 ML IV SCH ×2 (03:16→13:07)
[2019-02-19] MEDS: MIDAZOLAM (DRIP) 50 mg/50 mL 50 ML IV SCH (04:09)
[2019-02-19] MEDS: ACETAMINOPHEN 325 MG TAB PO PRN ×3 (04:12→16:45)
[2019-02-19] MEDS: PIPER-TAZO 2.25 GM (PMX) 50 ML IVPB SCH ×3 (05:56→22:43)
[2019-02-19] MEDS: PANTOPRAZOLE 40 MG INJ IV SCH (05:57)
[2019-02-19] MEDS: SERTRALINE 50 MG TAB PO SCH (08:51)
[2019-02-19] MEDS: SEVELAMER CARBONATE 0.8 GM PKT PO SCH ×3 (08:51→16:45)
[2019-02-19] MEDS: MYCOPHENOLATE 250 MG CAP PO SCH ×2 (08:51→20:26)
[2019-02-19] MEDS: predniSONE 5 MG TAB PO SCH (08:51)
[2019-02-19] MEDS: HYDROXYCHLOROQUINE 200 MG TAB PO SCH (08:52)
[2019-02-19] MEDS: ASPIRIN 81 MG TAB NGT SCH (08:52)
[2019-02-19] MEDS: NIFEdipine (XL) 60 MG TAB PO SCH ×2 (09:00→20:28)
--- NOTE | 2019-02-19 09:55 | CONS ---
Consult Date/Type/Reason Admit Date/Time Feb 17, 2019 at 09:30 Initial Consult Date 02/17/19 Type of Consult Pulmonary Requesting Provider: SONY SOTO Date/Time of Note DATE: 02/19/19 TIME: 09:54 Subjective Patient continues to remain febrile and required vasopressor support. Significant improvement in chest x-ray with bilateral infiltrates. Objective Vital Signs Date Temp Pulse Resp B/P (MAP) Pulse Ox O2 O2 Flow FiO2 Time Delivery Rate 02/19/19 101.0 08:52 02/19/19 87 20 110/69 99 06:45 (83) 02/19/19 [employer] 05:45 l Ventilato r 02/19/19 40 05:45 02/17/19 2.0 07:45 Intake and Output 02/18/19 02/18/19 02/19/19 1515:00 23:00 07:00 IntakeIntake Total 544.25 ml 561.0 ml 277.66 ml OutputOutput Total 3500 ml 0 ml 0 ml BalanceBalance -2955.75 ml 561.0 ml 277.66 ml Exam PHYSICAL EXAMINATION: GENERAL: Chronically ill appearing lady, orally intubated on mechanical ventilation. VITAL SIGNS: NECK: Supple, no JVD or lymphadenopathy. CARDIAC: S1, S2, no added sounds or murmurs. CHEST: Diminished air entry bilaterally. ABDOMEN: Soft, nontender. No guarding or rebound. EXTREMITIES: No cyanosis, clubbing, 1+ edema. NEUROLOGIC: Generalized weakness. Vent Setting Ventilator Support Mode: AC Fraction of Inspired Oxygen pe: 40 Positive End Expiratory Pressu: 5.0 Results/Medications Result Diagram: 02/19/19 0412 02/19/19 0412 Results 24 hrs Laboratory Tests Test 02/19/19 04:12 White Blood Count 13.0 #H Red Blood Count 2.77 L Hemoglobin 8.4 L Hematocrit 27.8 L Mean Corpuscular Volume 100.4 Mean Corpuscular Hemoglobin 30.3 Mean Corpuscular Hemoglobin Concent 30.2 L Red Cell Distribution Width 17.2 H Platelet Count 106 #L Mean Platelet Volume 13.1 H Immature Granulocytes % 0.500 H Neutrophils % Segmented Neutrophils % (Manual) 86 H Band Neutrophils % (Manual) 9 H Lymphocytes % Lymphocytes % (Manual) 3 L Monocytes % Monocytes % (Manual) 2 Eosinophils % Basophils % Nucleated Red Blood Cells % 0.3 H Immature Granulocytes # 0.070 H Neutrophils # Neutrophils # (Manual) 11.3 H Band Neutrophils # 1.1 H Lymphocytes (Manual) 0.3 L Lymphocytes # Monocytes # Monocytes # (Manual) 0.2 L Eosinophils # Basophils # Nucleated Red Blood Cells # Platelet Estimate DECREASED Polychromasia 2+ Anisocytosis 1+ Sodium Level 134 L Potassium Level 4.4 Chloride Level 98 Carbon Dioxide Level 25 Anion Gap 11 Blood Urea Nitrogen 26 H Creatinine 3.75 H Est Glomerular Filtrat Rate mL/min 14 L Glucose Level 93 Calcium Level 9.9 Phosphorus Level 3.1 Magnesium Level 1.9 Medications Current Medications IV Flush (NS 3 ml) 3 ml PER PROTOCOL IV ; Start 02/16/19 at 23:30 Ondansetron HCl (Zofran Tab) 4 mg Q6H PRN PO NAUSEA/VOMITING; Start 02/16/19 at 23:30 Nitroglycerin (Nitroglycerin (Sl Tab) 0.4 Mg) 1 tab Q5M PRN SL .CHEST PAIN; Start 02/16/19 at 23:30 Acetaminophen (Tylenol Tab) 650 mg Q6H PRN PO .PAIN 1-3 OR TEMP Last administered on 02/19/19 08:52; Admin Dose 650 MG; Start 02/16/19 at 23:30 Carvedilol (Coreg) 50 mg Q12 PO Last administered on 02/17/19 21:55; Admin Dose 50 MG; Start 02/16/19 at 23:30; Status Hold Clonidine (Catapres) 0.1 mg TID PO Last administered on 02/17/19 21:55; Admin Dose 0.1 MG; Start 02/17/19 at 09:00; Status Hold Hydroxychloroquine Sulfate (Plaquenil) 200 mg DAILY PO Last administered on 02/19/19 08:52; Admin Dose 200 MG; Start 02/17/19 at 09:00 Mycophenolate Mofetil (Cellcept) 1,000 mg BID PO Last administered on 02/19/19 08:51; Admin Dose 1,000 MG; Start 02/16/19 at 23:30 Nifedipine (Procardia Xl) 60 mg BID PO Last administered on 02/17/19at 21:55; Admin Dose 60 MG; Start 02/16/19 at 23:30 Prednisone (Prednisone) 5 mg DAILY PO Last administered on 02/19/19 08:51; Admin Dose 5 MG; Start 02/17/19 at 09:00 Sertraline HCl (Zoloft) 25 mg DAILY PO Last administered on 02/19/19 08:51; Admin Dose 25 MG; Start 02/17/19 at 09:00 Sevelamer Carbonate (Renvela) 0.8 gm WITH MEALS PO Last administered on 02/19/19 08:51; Admin Dose 0.8 GM; Start 02/17/19 at 08:00 Zolpidem Tartrate (Ambien) 5 mg HS PRN PO INSOMNIA; Start 02/17/19 at 12:30 Heparin Sodium (Porcine) (Heparin (5000 Units/1ml)) 5,000 unit Q8 SC Last administered on 02/18/19 06:06; Admin Dose 5,000 UNIT; Start 02/17/19 at 02:00; Status Hold Labetalol HCl (Labetalol) 10 mg Q4 PRN IV SPB>170; Start 02/17/19 at 05:00 Heparin Sodium (Porcine) (Heparin (1000 Units/ml)) 4,000 unit AFTER DIALYSIS CATHETER ; Start 02/17/19 at 05:30 Albumin Human 100 ml @ 100 mls/hr WITH DIALYSIS PRN IV SBP <90 DURING DIALYSIS Last administered on 02/17/19at 12:27; Admin Dose 100 MLS/HR; Start 02/17/19 at 05:30 Sodium Chloride (NS) -To prime the dialy... DIRECTED FOR HD PRN IV HD; Start 02/17/19 at 05:30 Hydromorphone HCl (Dilaudid) 0.5 mg Q8H PRN IV SEVERE PAIN LEVEL 7-10; Start 02/17/19 at 10:30 Midazolam HCl 50 ml @ 1 mls/hr PER PROTOCOL IV Last administered on 02/19/19 04:09; Admin Dose 4 MLS/HR; Start 02/17/19 at 09:30 Fentanyl 100 ml @ 2.5 mls/hr PER PROTOCOL IV Last administered on 02/18/19 17:06; Admin Dose 4 MLS/HR; Start 02/17/19 at 10:30 Norepinephrine 250 ml @ 1.875 mls/ hr TITRATE IV Last administered on 02/17/19at 22:41; Admin Dose 3.75 MLS/HR; Start 02/17/19 at 12:00 Phenylephrine HCl 250 ml @ 75 mls/hr TITRATE IV Last administered on 02/18/19at 00:33; Admin Dose 187.5 MLS/HR; Start 02/17/19 at 23:00 Phenylephrine HCl 80 mg/Dextrose 250 ml @ 18.75 mls/ hr TITRATE IV Last administered on 02/19/19at 03:16; Admin Dose 28.13 MLS/HR; Start 02/18/19 at 00:30 Piperacillin Sod/ Tazobactam Sod 50 ml @ 200 mls/hr Q8 IVPB Last administered on 02/19/19 05:56; Admin Dose 200 MLS/HR; Start 02/18/19 at 12:00 Aspirin (Aspirin) 81 mg DAILY NGT Last administered on 02/19/19 08:52; Admin Dose 81 MG; Start 02/18/19 at 10:00 Pantoprazole (Protonix Iv) 40 mg DAILY@06 IV Last administered on 02/19/19at 05:57; Admin Dose 40 MG; Start 02/19/19 at 06:00 Assessment/Plan Hospital Course (Demo Recall) IMPRESSION AND PLAN: 1. Acute hypoxemic respiratory failure, likely secondary to volume overload. Probable component of aspiration pneumonia also. 2. End-stage renal failure on hemodialysis. 3. Systemic lupus erythematosus with lupus nephritis. 4. Encephalopathy, toxic metabolic secondary to above. 5. Septic shock possible aspiration pneumonitis PLAN: 1. Continue with mechanical ventilation, decrease FIO2 and PEEP as tolerated. Anticipate weaning trial tomorrow. 2. Continue hemodialysis for volume removal 3. Adequate sedation and pain control. 4. DVT and GI prophylaxis. 5. Broad-spectrum antibiotic coverage 6. Titrate vasopressors to keep map greater than 65 Critical care time 40 minutes. JAKY ZELAYA MD, [facility] Feb 19, 2019 09:55
--- NOTE | 2019-02-19 10:26 | PN ---
Date/Time of Note Date/Time of Note DATE: 02/19/19 TIME: 10:17 Assessment/Plan VTE Prophylaxis Risk score (from Ns)>0 risk: 7 SCD applied (from Nsg): Yes Pharmacological prophylaxis: other Lines/Catheters IV Catheter Type (from Nrsg): Central Line Central line still needed: Yes Urinary Cath still in place: Yes Reason Cath still needed: urinary retention Assessment/Plan Hospital Course S: Patient still intubated and on pressor support. Still with fever this morning. O: VS - see below PE: General: lying in bed, intubated and sedated. HEENT: Atraumatic, normocephalic. Neck: Supple Chest: Nontender Lungs: Slightly decreased breath sounds bilaterally Heart: Normal S1-S2, Regular rhythm and rate. No murmur, S3, or S4 Abdomen: Soft , nontender, nondistended , bowel sounds are present. Extremities: Normal to inspection, no edema no cyanosis. Right femoral line clean/dry/intact. Assessment/Plan: 33 yo woman with history of SLE, lupus nephritis, ESRD on dialysis who presents with chest pain and respiratory distress. #Respiratory distress: Secondary to possible volume overload and flash pulmonary edema along with possible aspiration pneumonia: As evidenced by sudden onset of respiratory failure, diffuse fluffy infiltrates, pink foam directly from ET tube on 02/17- The patient has had several of these episodes requiring emergent intubation at this hospital- Unclear what trigger causes this. Of note she is compliant with home medications and dialysis. Currently intubated in the ICU. With previous episodes, respiratory status typically improves quickly after dialysis. -Continue vent weaning and extubation per pulmonary. -Continue broad-spectrum antibiotics, nebs as needed #septic shock-likely secondary to aspiration pneumonitis/pneumonia. Patient wi th fever and hypotension requiring pressors - white blood cell count elevated as well. -Follow-up results of blood cultures ordered, continue pressor support wean down as tolerated -For now continue empiric zosyn q6h, if worsens, consider infectious disease consult #ESRD: -Continue dialysis per renal, and Renvela #SLE: - Continue plaquenil, and low-dose p.o. steroids # chronic cachexia and malnutrition: Likely needs to be on NG tube feeds while intubated # chronic anemia: Secondary likely to underlying end-stage renal disease. Hemoglobin presently in the mid 8 range - continue to monitor closely Critical care time spent in patient care today equals 45 minutes. Result Diagram: 02/19/19 0412 02/19/19 0412 Results 24hrs Laboratory Tests Test 02/19/19 04:12 White Blood Count 13.0 #H Red Blood Count 2.77 L Hemoglobin 8.4 L Hematocrit 27.8 L Mean Corpuscular Volume 100.4 Mean Corpuscular Hemoglobin 30.3 Mean Corpuscular Hemoglobin Concent 30.2 L Red Cell Distribution Width 17.2 H Platelet Count 106 #L Mean Platelet Volume 13.1 H Immature Granulocytes % 0.500 H Neutrophils % Segmented Neutrophils % (Manual) 86 H Band Neutrophils % (Manual) 9 H Lymphocytes % Lymphocytes % (Manual) 3 L Monocytes % Monocytes % (Manual) 2 Eosinophils % Basophils % Nucleated Red Blood Cells % 0.3 H Immature Granulocytes # 0.070 H Neutrophils # Neutrophils # (Manual) 11.3 H Band Neutrophils # 1.1 H Lymphocytes (Manual) 0.3 L Lymphocytes # Monocytes # Monocytes # (Manual) 0.2 L Eosinophils # Basophils # Nucleated Red Blood Cells # Platelet Estimate DECREASED Polychromasia 2+ Anisocytosis 1+ Sodium Level 134 L Potassium Level 4.4 Chloride Level 98 Carbon Dioxide Level 25 Anion Gap 11 Blood Urea Nitrogen 26 H Creatinine 3.75 H Est Glomerular Filtrat Rate mL/min 14 L Glucose Level 93 Calcium Level 9.9 Phosphorus Level 3.1 Magnesium Level 1.9 Exam/Review of Systems Exam Vitals Vital Signs Date Temp Pulse Resp B/P (MAP) Pulse Ox O2 O2 Flow FiO2 Time Delivery Rate 02/19/19 101.0 08:52 02/19/19 87 20 110/69 99 06:45 (83) 02/19/19 [employer] 05:45 l Ventilato r 02/19/19 40 05:45 02/17/19 2.0 07:45 Intake and Output 02/18/19 02/18/19 02/19/19 1515:00 23:00 07:00 IntakeIntake Total 544.25 ml 561.0 ml 277.66 ml OutputOutput Total 3500 ml 0 ml 0 ml BalanceBalance -2955.75 ml 561.0 ml 277.66 ml Results Results 24hrs Laboratory Tests Test 02/19/19 04:12 White Blood Count 13.0 #H Red Blood Count 2.77 L Hemoglobin 8.4 L Hematocrit 27.8 L Mean Corpuscular Volume 100.4 Mean Corpuscular Hemoglobin 30.3 Mean Corpuscular Hemoglobin Concent 30.2 L Red Cell Distribution Width 17.2 H Platelet Count 106 #L Mean Platelet Volume 13.1 H Immature Granulocytes % 0.500 H Neutrophils % Segmented Neutrophils % (Manual) 86 H Band Neutrophils % (Manual) 9 H Lymphocytes % Lymphocytes % (Manual) 3 L Monocytes % Monocytes % (Manual) 2 Eosinophils % Basophils % Nucleated Red Blood Cells % 0.3 H Immature Granulocytes # 0.070 H Neutrophils # Neutrophils # (Manual) 11.3 H Band Neutrophils # 1.1 H Lymphocytes (Manual) 0.3 L Lymphocytes # Monocytes # Monocytes # (Manual) 0.2 L Eosinophils # Basophils # Nucleated Red Blood Cells # Platelet Estimate DECREASED Polychromasia 2+ Anisocytosis 1+ Sodium Level 134 L Potassium Level 4.4 Chloride Level 98 Carbon Dioxide Level 25 Anion Gap 11 Blood Urea Nitrogen 26 H Creatinine 3.75 H Est Glomerular Filtrat Rate mL/min 14 L Glucose Level 93 Calcium Level 9.9 Phosphorus Level 3.1 Magnesium Level 1.9 Medications Medication Current Medications IV Flush (NS 3 ml) 3 ml PER PROTOCOL IV ; Start 02/16/19 at 23:30 Ondansetron HCl (Zofran Tab) 4 mg Q6H PRN PO NAUSEA/VOMITING; Start 02/16/19 at 23:30 Nitroglycerin (Nitroglycerin (Sl Tab) 0.4 Mg) 1 tab Q5M PRN SL .CHEST PAIN; Start 02/16/19 at 23:30 Acetaminophen (Tylenol Tab) 650 mg Q6H PRN PO .PAIN 1-3 OR TEMP Last administered on 02/19/19 08:52; Admin Dose 650 MG; Start 02/16/19 at 23:30 Carvedilol (Coreg) 50 mg Q12 PO Last administered on 02/17/19 21:55; Admin Dose 50 MG; Start 02/16/19 at 23:30; Status Hold Clonidine (Catapres) 0.1 mg TID PO Last administered on 02/17/19 21:55; Admin Dose 0.1 MG; Start 02/17/19 at 09:00; Status Hold Hydroxychloroquine Sulfate (Plaquenil) 200 mg DAILY PO Last administered on 4/22/19at 08:52; Admin Dose 200 MG; Start 02/17/19 at 09:00 Mycophenolate Mofetil (Cellcept) 1,000 mg BID PO Last administered on 02/19/19 08:51; Admin Dose 1,000 MG; Start 02/16/19 at 23:30 Nifedipine (Procardia Xl) 60 mg BID PO Last administered on 02/17/19at 21:55; Admin Dose 60 MG; Start 02/16/19 at 23:30 Prednisone (Prednisone) 5 mg DAILY PO Last administered on 02/19/19 08:51; Admin Dose 5 MG; Start 02/17/19 at 09:00 Sertraline HCl (Zoloft) 25 mg DAILY PO Last administered on 02/19/19 08:51; Admin Dose 25 MG; Start 02/17/19 at 09:00 Sevelamer Carbonate (Renvela) 0.8 gm WITH MEALS PO Last administered on 08:51; Admin Dose 0.8 GM; Start 02/17/19 at 08:00 Zolpidem Tartrate (Ambien) 5 mg HS PRN PO INSOMNIA; Start 02/17/19 at 12:30 Heparin Sodium (Porcine) (Heparin (5000 Units/1ml)) 5,000 unit Q8 SC Last administered on 02/18/19 06:06; Admin Dose 5,000 UNIT; Start 02/17/19 at 02:00; Status Hold Labetalol HCl (Labetalol) 10 mg Q4 PRN IV SPB>170; Start 02/17/19 at 05:00 Heparin Sodium (Porcine) (Heparin (1000 Units/ml)) 4,000 unit AFTER DIALYSIS CATHETER ; Start 02/17/19 at 05:30 Albumin Human 100 ml @ 100 mls/hr WITH DIALYSIS PRN IV SBP <90 DURING DIALYSIS Last administered on 02/17/19at 12:27; Admin Dose 100 MLS/HR; Start 02/17/19 at 05:30 Sodium Chloride (NS) -To prime the dialy... DIRECTED FOR HD PRN IV HD; Start 02/17/19 at 05:30 Hydromorphone HCl (Dilaudid) 0.5 mg Q8H PRN IV SEVERE PAIN LEVEL 7-10; Start 02/17/19 at 10:30 Midazolam HCl 50 ml @ 1 mls/hr PER PROTOCOL IV Last administered on 02/19/19 04:09; Admin Dose 4 MLS/HR; Start 02/17/19 at 09:30 Fentanyl 100 ml @ 2.5 mls/hr PER PROTOCOL IV Last administered on 02/18/19at 17:06; Admin Dose 4 MLS/HR; Start 02/17/19 at 10:30 Norepinephrine 250 ml @ 1.875 mls/ hr TITRATE IV Last administered on 02/17/19at 22:41; Admin Dose 3.75 MLS/HR; Start 02/17/19 at 12:00 Phenylephrine HCl 250 ml @ 75 mls/hr TITRATE IV Last administered on 02/18/19at 00:33; Admin Dose 187.5 MLS/HR; Start 02/17/19 at 23:00 Phenylephrine HCl 80 mg/Dextrose 250 ml @ 18.75 mls/ hr TITRATE IV Last administered on 02/19/19at 03:16; Admin Dose 28.13 MLS/HR; Start 02/18/19 at 00:30 Piperacillin Sod/ Tazobactam Sod 50 ml @ 200 mls/hr Q8 IVPB Last administered on 02/19/19 05:56; Admin Dose 200 MLS/HR; Start 02/18/19 at 12:00 Aspirin (Aspirin) 81 mg DAILY NGT Last administered on 02/19/19 08:52; Admin Dose 81 MG; Start 02/18/19 at 10:00 Pantoprazole (Protonix Iv) 40 mg DAILY@06 IV Last administered on 02/19/19 05:57; Admin Dose 40 MG; Start 02/19/19 at 06:00 CONSTANCE THOMPSON Feb 19, 2019 10:26
--- NOTE | 2019-02-19 18:01 | CONS ---
Assessment/Plan Assessment/Plan Assessment/Plan (Daily) 1. acute hypoxic respiratory distress due to acute pulmonary edema 2. ESRD on HD 4 times a week at [facility] 3. Acute chest pain 4. Hyperkalemia 5. h/o Lupus 6. h/o HTN 7. H/o HL 8. H/o seizure disorder Plan: getting HD x 3 days in row, Plan for HD today adn tomorrow then pulmonary can decide for weaning pt follows at [facility] and she gets HD 4 times a week on Tuesday, Tuesday, and Tuesday will follow up Consultation Date/Type/Reason Admit Date/Time Feb 17, 2019 at 09:30 Initial Consult Date 02/17/19 Type of Consult NEPHROLOGY Requesting Provider: SONY SOTO Date/Time of Note DATE: 02/19/19 TIME: 18:01 24 HR Interval Summary Free Text/Dictation pt remains intubated, getting HD now Exam/Review of Systems Exam Vitals Vital Signs Date Temp Pulse Resp B/P (MAP) Pulse Ox O2 O2 Flow FiO2 Time Delivery Rate 02/19/19 89 20 100 30 16:58 02/19/19 103.0 16:45 02/19/19 111/78 16:30 (89) 02/19/19 [employer] 16:00 l Ventilato r 02/17/19 2.0 07:45 Intake and Output 02/18/19 02/18/19 02/19/19 1515:00 23:00 07:00 IntakeIntake Total 544.25 ml 561.0 ml 308.04 ml OutputOutput Total 3500 ml 0 ml 0 ml BalanceBalance -2955.75 ml 561.0 ml 308.04 ml Exam GENERAL: Chronically ill appearing lady, orally intubated on mechanical ventilation. VITAL SIGNS: NECK: Supple, no JVD or lymphadenopathy. CARDIAC: S1, S2, no added sounds or murmurs. CHEST: Diminished air entry bilaterally. ABDOMEN: Soft, nontender. No guarding or rebound. EXTREMITIES: No cyanosis, clubbing, 1+ edema. NEUROLOGIC: Generalized weakness. Results Result Diagram: 02/19/19 0412 02/19/19 0412 Results 24hrs Laboratory Tests Test 02/19/19 04:12 02/19/19 10:49 White Blood Count 13.0 #H Red Blood Count 2.77 L Hemoglobin 8.4 L Hematocrit 27.8 L Mean Corpuscular Volume 100.4 Mean Corpuscular Hemoglobin 30.3 Mean Corpuscular Hemoglobin Concent 30.2 L Red Cell Distribution Width 17.2 H Platelet Count 106 #L Mean Platelet Volume 13.1 H Immature Granulocytes % 0.500 H Neutrophils % Segmented Neutrophils % (Manual) 86 H Band Neutrophils % (Manual) 9 H Lymphocytes % Lymphocytes % (Manual) 3 L Monocytes % Monocytes % (Manual) 2 Eosinophils % Basophils % Nucleated Red Blood Cells % 0.3 H Immature Granulocytes # 0.070 H Neutrophils # Neutrophils # (Manual) 11.3 H Band Neutrophils # 1.1 H Lymphocytes (Manual) 0.3 L Lymphocytes # Monocytes # Monocytes # (Manual) 0.2 L Eosinophils # Basophils # Nucleated Red Blood Cells # Platelet Estimate DECREASED Polychromasia 2+ Anisocytosis 1+ Sodium Level 134 L Potassium Level 4.4 Chloride Level 98 Carbon Dioxide Level 25 Anion Gap 11 Blood Urea Nitrogen 26 H Creatinine 3.75 H Est Glomerular Filtrat Rate mL/min 14 L Glucose Level 93 Calcium Level 9.9 Phosphorus Level 3.1 Magnesium Level 1.9 Lactic Acid Level 0.9 Medications Medication Current Medications IV Flush (NS 3 ml) 3 ml PER PROTOCOL IV ; Start 02/16/19 at 23:30 Ondansetron HCl (Zofran Tab) 4 mg Q6H PRN PO NAUSEA/VOMITING; Start 02/16/19 at 23:30 Nitroglycerin (Nitroglycerin (Sl Tab) 0.4 Mg) 1 tab Q5M PRN SL .CHEST PAIN; Start 02/16/19 at 23:30 Acetaminophen (Tylenol Tab) 650 mg Q6H PRN PO .PAIN 1-3 OR TEMP Last administered on 02/19/19at 16:45; Admin Dose 650 MG; Start 02/16/19 at 23:30 Carvedilol (Coreg) 50 mg Q12 PO Last administered on 02/17/19at 21:55; Admin Dose 50 MG; Start 02/16/19 at 23:30; Status Hold Clonidine (Catapres) 0.1 mg TID PO Last administered on 02/17/19at 21:55; Admin Dose 0.1 MG; Start 02/17/19 at 09:00; Status Hold Hydroxychloroquine Sulfate (Plaquenil) 200 mg DAILY PO Last administered on 02/19/19 08:52; Admin Dose 200 MG; Start 02/17/19 at 09:00 Mycophenolate Mofetil (Cellcept) 1,000 mg BID PO Last administered on 02/19/19 08:51; Admin Dose 1,000 MG; Start 02/16/19 at 23:30 Nifedipine (Procardia Xl) 60 mg BID PO Last administered on 02/17/19 21:55; Admin Dose 60 MG; Start 02/16/19 at 23:30 Prednisone (Prednisone) 5 mg DAILY PO Last administered on 02/19/19 08:51; Admin Dose 5 MG; Start 02/17/19 at 09:00 Sertraline HCl (Zoloft) 25 mg DAILY PO Last administered on 02/19/19 08:51; Admin Dose 25 MG; Start 02/17/19 at 09:00 Sevelamer Carbonate (Renvela) 0.8 gm WITH MEALS PO Last administered on 02/19/19 16:45; Admin Dose 0.8 GM; Start 02/17/19 at 08:00 Zolpidem Tartrate (Ambien) 5 mg HS PRN PO INSOMNIA; Start 02/17/19 at 12:30 Heparin Sodium (Porcine) (Heparin (5000 Units/1ml)) 5,000 unit Q8 SC Last administered on 02/18/19 06:06; Admin Dose 5,000 UNIT; Start 02/17/19 at 02:00; Status Hold Labetalol HCl (Labetalol) 10 mg Q4 PRN IV SPB>170; Start 02/17/19 at 05:00 Heparin Sodium (Porcine) (Heparin (1000 Units/ml)) 4,000 unit AFTER DIALYSIS CATHETER ; Start 02/17/19 at 05:30 Albumin Human 100 ml @ 100 mls/hr WITH DIALYSIS PRN IV SBP <90 DURING DIALYSIS Last administered on 02/17/19at 12:27; Admin Dose 100 MLS/HR; Start 02/17/19 at 05:30 Sodium Chloride (NS) -To prime the dialy... DIRECTED FOR HD PRN IV HD; Start 02/17/19 at 05:30 Hydromorphone HCl (Dilaudid) 0.5 mg Q8H PRN IV SEVERE PAIN LEVEL 7-10; Start 02/17/19 at 10:30 Midazolam HCl 50 ml @ 1 mls/hr PER PROTOCOL IV Last administered on 02/19/19 04:09; Admin Dose 4 MLS/HR; Start 02/17/19 at 09:30 Fentanyl 100 ml @ 2.5 mls/hr PER PROTOCOL IV Last administered on 02/18/19at 17:06; Admin Dose 4 MLS/HR; Start 02/17/19 at 10:30 Norepinephrine 250 ml @ 1.875 mls/ hr TITRATE IV Last administered on 02/17/19at 22:41; Admin Dose 3.75 MLS/HR; Start 02/17/19 at 12:00 Phenylephrine HCl 250 ml @ 75 mls/hr TITRATE IV Last administered on 02/18/19at 00:33; Admin Dose 187.5 MLS/HR; Start 02/17/19 at 23:00 Phenylephrine HCl 80 mg/Dextrose 250 ml @ 18.75 mls/ hr TITRATE IV Last administered on 02/19/19at 13:07; Admin Dose 24.38 MLS/HR; Start 02/18/19 at 00:30 Piperacillin Sod/ Tazobactam Sod 50 ml @ 200 mls/hr Q8 IVPB Last administered on 02/19/19 14:27; Admin Dose 200 MLS/HR; Start 02/18/19 at 12:00 Aspirin (Aspirin) 81 mg DAILY NGT Last administered on 02/19/19 08:52; Admin Dose 81 MG; Start 02/18/19 at 10:00 Pantoprazole (Protonix Iv) 40 mg DAILY@06 IV Last administered on 02/19/19at 05:57; Admin Dose 40 MG; Start 02/19/19 at 06:00 ARTURO AMADOR MD Feb 19, 2019 18:01
[2019-02-19] MEDS ORDERED: VANCOMYCIN IV PER PHARMACY XX SCH (18:30)
[2019-02-19] MEDS ORDERED: VANCOMYCIN 1 GM 250 ML IVPB ONE (19:30)
[2019-02-19] MEDS: FENTAnyl (DRIP) 1000 mcg/100mL 100 ML IV SCH (20:43)
[2019-02-20] VITALS (119 sets, daily range): BP systolic 84–130; BP diastolic 63–95; PULSE 69–86; RESP 17–22
[2019-02-20] MEDS: PHENYLephrine 80 MG in DEXTROSE 5% 242 ML IV SCH ×2 (00:16→14:06)
[2019-02-20] MEDS: PIPER-TAZO 2.25 GM (PMX) 50 ML IVPB SCH ×3 (05:22→21:07)
[2019-02-20] MEDS: PANTOPRAZOLE 40 MG INJ IV SCH (05:22)
[2019-02-20] MEDS: MIDAZOLAM (DRIP) 50 mg/50 mL 50 ML IV SCH ×2 (06:49→23:18)
[2019-02-20] MEDS: SEVELAMER CARBONATE 0.8 GM PKT PO SCH ×3 (08:55→17:31)
[2019-02-20] MEDS: SERTRALINE 50 MG TAB PO SCH (08:55)
[2019-02-20] MEDS: HYDROXYCHLOROQUINE 200 MG TAB PO SCH (08:55)
[2019-02-20] MEDS: NIFEdipine (XL) 60 MG TAB PO SCH ×2 (08:56→21:00)
[2019-02-20] MEDS: MYCOPHENOLATE 250 MG CAP PO SCH ×2 (08:56→21:08)
[2019-02-20] MEDS: ASPIRIN 81 MG TAB NGT SCH (08:56)
[2019-02-20] MEDS: predniSONE 5 MG TAB PO SCH (08:56)
--- NOTE | 2019-02-20 10:02 | CONS ---
Consult Date/Type/Reason Admit Date/Time Feb 17, 2019 at 09:30 Initial Consult Date 02/17/19 Type of Consult Pulmonary Requesting Provider: SONY SOTO Date/Time of Note DATE: 02/20/19 TIME: 10:01 Subjective Off pressors. No longer febrile. Still has significant productive cough. Objective Vital Signs Date Temp Pulse Resp B/P (MAP) Pulse Ox O2 O2 Flow FiO2 Time Delivery Rate 02/20/19 78 20 120/80 100 08:30 (93) 02/20/19 98.7 Mechanical 08:00 Ventilator 02/20/19 30 08:00 02/17/19 2.0 07:45 Intake and Output 02/19/19 02/19/19 02/20/19 1515:00 23:00 07:00 IntakeIntake Total 291.28 ml 621.16 ml 497.39 ml OutputOutput Total 3100 ml 0 ml 0 ml BalanceBalance -2808.72 ml 621.16 ml 497.39 ml Exam PHYSICAL EXAMINATION: GENERAL: Chronically ill appearing lady, orally intubated on mechanical ventilation. VITAL SIGNS: NECK: Supple, no JVD or lymphadenopathy. CARDIAC: S1, S2, no added sounds or murmurs. CHEST: Diminished air entry bilaterally. ABDOMEN: Soft, nontender. No guarding or rebound. EXTREMITIES: No cyanosis, clubbing, 1+ edema. NEUROLOGIC: Generalized weakness. Vent Setting Ventilator Support Mode: AC Fraction of Inspired Oxygen pe: 30 Positive End Expiratory Pressu: 5.0 Results/Medications Result Diagram: 02/20/19 0500 02/20/19 0500 Results 24 hrs Laboratory Tests Test 02/19/19 10:49 02/20/19 05:00 Lactic Acid Level 0.9 White Blood Count 10.2 # Red Blood Count 2.94 L Hemoglobin 9.1 L Hematocrit 28.8 L Mean Corpuscular Volume 98.0 Mean Corpuscular Hemoglobin 31.0 Mean Corpuscular Hemoglobin Concent 31.6 L Red Cell Distribution Width 16.5 H Platelet Count 105 L Mean Platelet Volume 13.3 H Immature Granulocytes % 0.500 H Neutrophils % Segmented Neutrophils % (Manual) 78 H Band Neutrophils % (Manual) 9 H Lymphocytes % Lymphocytes % (Manual) 11 L Monocytes % Monocytes % (Manual) 1 Eosinophils % Basophils % Basophils % (Manual) 1 Nucleated Red Blood Cells % 4 H Immature Granulocytes # 0.050 H Neutrophils # Neutrophils # (Manual) 8.0 H Band Neutrophils # 0.9 H Lymphocytes (Manual) 1.1 Lymphocytes # Monocytes # Monocytes # (Manual) 0.1 L Eosinophils # Basophils # Basophils # (Manual) 0.1 H Nucleated Red Blood Cells # Platelet Estimate DECREASED Giant Platelets 1 H Polychromasia 1+ Anisocytosis 1+ Sodium Level 140 Potassium Level 3.5 Chloride Level 98 Carbon Dioxide Level 28 Anion Gap 14 H Blood Urea Nitrogen 27 H Creatinine 3.31 H Est Glomerular Filtrat Rate mL/min 16 L Glucose Level 94 Calcium Level 9.9 Phosphorus Level 2.3 L Magnesium Level 2.0 Total Bilirubin 0.9 Direct Bilirubin 0.00 Indirect Bilirubin 0.9 Aspartate Amino Transf (AST/SGOT) 2159 H Alanine Aminotransferase (ALT/SGPT) 2692 H Alkaline Phosphatase 123 H Total Protein 8.0 Albumin 4.1 Globulin 3.90 H Albumin/Globulin Ratio 1.05 Medications Current Medications IV Flush (NS 3 ml) 3 ml PER PROTOCOL IV ; Start 02/16/19 at 23:30 Ondansetron HCl (Zofran Tab) 4 mg Q6H PRN PO NAUSEA/VOMITING; Start 02/16/19 at 23:30 Nitroglycerin (Nitroglycerin (Sl Tab) 0.4 Mg) 1 tab Q5M PRN SL .CHEST PAIN; Start 02/16/19 at 23:30 Acetaminophen (Tylenol Tab) 650 mg Q6H PRN PO .PAIN 1-3 OR TEMP Last administered on 02/19/19at 16:45; Admin Dose 650 MG; Start 02/16/19 at 23:30 Carvedilol (Coreg) 50 mg Q12 PO Last administered on 02/17/19at 21:55; Admin Dose 50 MG; Start 02/16/19 at 23:30; Status Hold Clonidine (Catapres) 0.1 mg TID PO Last administered on 02/17/19at 21:55; Admin Dose 0.1 MG; Start 02/17/19 at 09:00; Status Hold Hydroxychloroquine Sulfate (Plaquenil) 200 mg DAILY PO Last administered on 02/20/19at 08:55; Admin Dose 200 MG; Start 02/17/19 at 09:00 Mycophenolate Mofetil (Cellcept) 1,000 mg BID PO Last administered on 02/20/19 08:56; Admin Dose 1,000 MG; Start 02/16/19 at 23:30 Nifedipine (Procardia Xl) 60 mg BID PO Last administered on 02/17/19 21:55; Admin Dose 60 MG; Start 02/16/19 at 23:30 Prednisone (Prednisone) 5 mg DAILY PO Last administered on 02/20/19 08:56; Admin Dose 5 MG; Start 02/17/19 at 09:00 Sertraline HCl (Zoloft) 25 mg DAILY PO Last administered on 02/20/19 08:55; Admin Dose 25 MG; Start 02/17/19 at 09:00 Sevelamer Carbonate (Renvela) 0.8 gm WITH MEALS PO Last administered on 02/20/19 08:55; Admin Dose 0.8 GM; Start 02/17/19 at 08:00 Zolpidem Tartrate (Ambien) 5 mg HS PRN PO INSOMNIA; Start 02/17/19 at 12:30 Heparin Sodium (Porcine) (Heparin (5000 Units/1ml)) 5,000 unit Q8 SC Last administered on 02/18/19 06:06; Admin Dose 5,000 UNIT; Start 02/17/19 at 02:00; Status Hold Labetalol HCl (Labetalol) 10 mg Q4 PRN IV SPB>170; Start 02/17/19 at 05:00 Heparin Sodium (Porcine) (Heparin (1000 Units/ml)) 4,000 unit AFTER DIALYSIS CATHETER ; Start 02/17/19 at 05:30 Albumin Human 100 ml @ 100 mls/hr WITH DIALYSIS PRN IV SBP <90 DURING DIALYSIS Last administered on 02/17/19at 12:27; Admin Dose 100 MLS/HR; Start 02/17/19 at 05:30 Sodium Chloride (NS) -To prime the dialy... DIRECTED FOR HD PRN IV HD; Start 02/17/19 at 05:30 Hydromorphone HCl (Dilaudid) 0.5 mg Q8H PRN IV SEVERE PAIN LEVEL 7-10; Start 02/17/19 at 10:30 Midazolam HCl 50 ml @ 1 mls/hr PER PROTOCOL IV Last administered on 02/20/19 06:49; Admin Dose 2 MLS/HR; Start 02/17/19 at 09:30 Fentanyl 100 ml @ 2.5 mls/hr PER PROTOCOL IV Last administered on 02/19/19at 20:43; Admin Dose 4 MLS/HR; Start 02/17/19 at 10:30 Phenylephrine HCl 80 mg/Dextrose 250 ml @ 18.75 mls/ hr TITRATE IV Last administered on 02/20/19at 00:16; Admin Dose 20.63 MLS/HR; Start 02/18/19 at 00:30 Piperacillin Sod/ Tazobactam Sod 50 ml @ 200 mls/hr Q8 IVPB Last administered on 02/20/19at 05:22; Admin Dose 200 MLS/HR; Start 02/18/19 at 12:00 Aspirin (Aspirin) 81 mg DAILY NGT Last administered on 02/20/19at 08:56; Admin Dose 81 MG; Start 02/18/19 at 10:00 Pantoprazole (Protonix Iv) 40 mg DAILY@06 IV Last administered on 02/20/19at 05:22; Admin Dose 40 MG; Start 02/19/19 at 06:00 Vancomycin HCl (Vanco Iv Per Pharmacy) VANCOMYCIN PER PHARMA... PER PROTOCOL XX ; Start 02/19/19 at 18:30 Assessment/Plan Hospital Course (Demo Recall) IMPRESSION AND PLAN: 1. Acute hypoxemic respiratory failure, likely secondary to volume overload. Probable component of aspiration pneumonia also. 2. End-stage renal failure on hemodialysis. 3. Systemic lupus erythematosus with lupus nephritis. 4. Encephalopathy, toxic metabolic secondary to above. 5. Septic shock possible aspiration pneumonitis PLAN: 1. Continue with mechanical ventilation, decrease FIO2 and PEEP as tolerated. Hold off on weaning today given significant secretions. Chest x-ray shows significant improvement in infiltrates however. 2. Continue hemodialysis for volume removal 3. Adequate sedation and pain control. 4. DVT and GI prophylaxis. 5. Broad-spectrum antibiotic coverage 6. Titrate vasopressors to keep map greater than 65 Critical care time 40 minutes. JAKY ZELAYA MD, [facility] Feb 20, 2019 10:02
--- NOTE | 2019-02-20 11:06 | PN ---
Date/Time of Note Date/Time of Note DATE: 02/20/19 TIME: 11:00 Assessment/Plan VTE Prophylaxis Risk score (from Nsg)>0 risk: 8 SCD applied (from Nsg): Yes Pharmacological prophylaxis: other Lines/Catheters IV Catheter Type (from Nrsg): Central Line Central line still needed: Yes Urinary Cath still in place: No Assessment/Plan Hospital Course S: Patient still intubated and on pressor support low-dose Sandeep-Synephrine. Seen by pulmonary team this morning. Patient did have fevers yesterday evening but no fevers overnight or this morning. Awaiting another dialysis session for today as she did get one yesterday. O: VS - see below PE: General: lying in bed, intubated and sedated. HEENT: Atraumatic, normocephalic. Neck: Supple Chest: Nontender Lungs: Slightly decreased breath sounds bilaterally Heart: Normal S1-S2, Regular rhythm and rate. No murmur, S3, or S4 Abdomen: Soft , nontender, nondistended , bowel sounds are present. Extremities: Normal to inspection, no edema no cyanosis. Right femoral line clean/dry/intact. Assessment/Plan: 33 yo woman with history of SLE, lupus nephritis, ESRD on dialysis who presents with chest pain and respiratory distress. #Respiratory distress: Intubated, secondary to possible volume overload and flash pulmonary edema along with possible aspiration pneumonia: As evidenced by sudden onset of respiratory failure, diffuse fluffy infiltrates, pink foam directly from ET tube on 02/17- The patient has had several of these episodes requiring emergent intubation at this hospital. Of note apparently she is compliant with home medications and dialysis. With previous episodes, respiratory status typically improves quickly after dialysis. -Continue vent weaning and extubation per pulmonary. -Continue broad-spectrum antibiotics, nebs as needed -Again, for another dialysis session today #septic shock-likely secondary to aspiration pneumonitis/pneumonia. Patient with fever and hypotension requiring pressors - white blood cell count was elevated but trending down now. -Follow-up results of blood cultures ordered, continue pressor support wean down as tolerated -For now continue empiric zosyn q6h, if worsens, consider infectious disease consult #ESRD: -Continue dialysis per renal, and Renvela #SLE: - Continue plaquenil, and low-dose p.o. steroids # chronic cachexia and malnutrition: Likely needs to be on NG tube feeds while intubated # chronic anemia: Secondary likely to underlying end-stage renal disease. Hemoglobin presently in the mid 8 range - continue to monitor closely Critical care time spent in patient care today equals 45 minutes. Result Diagram: 02/20/19 0500 02/20/19 0500 Results 24hrs Laboratory Tests Test 02/20/19 05:00 White Blood Count 10.2 # Red Blood Count 2.94 L Hemoglobin 9.1 L Hematocrit 28.8 L Mean Corpuscular Volume 98.0 Mean Corpuscular Hemoglobin 31.0 Mean Corpuscular Hemoglobin Concent 31.6 L Red Cell Distribution Width 16.5 H Platelet Count 105 L Mean Platelet Volume 13.3 H Immature Granulocytes % 0.500 H Neutrophils % Segmented Neutrophils % (Manual) 78 H Band Neutrophils % (Manual) 9 H Lymphocytes % Lymphocytes % (Manual) 11 L Monocytes % Monocytes % (Manual) 1 Eosinophils % Basophils % Basophils % (Manual) 1 Nucleated Red Blood Cells % 4 H Immature Granulocytes # 0.050 H Neutrophils # Neutrophils # (Manual) 8.0 H Band Neutrophils # 0.9 H Lymphocytes (Manual) 1.1 Lymphocytes # Monocytes # Monocytes # (Manual) 0.1 L Eosinophils # Basophils # Basophils # (Manual) 0.1 H Nucleated Red Blood Cells # Platelet Estimate DECREASED Giant Platelets 1 H Polychromasia 1+ Anisocytosis 1+ Sodium Level 140 Potassium Level 3.5 Chloride Level 98 Carbon Dioxide Level 28 Anion Gap 14 H Blood Urea Nitrogen 27 H Creatinine 3.31 H Est Glomerular Filtrat Rate mL/min 16 L Glucose Level 94 Calcium Level 9.9 Phosphorus Level 2.3 L Magnesium Level 2.0 Total Bilirubin 0.9 Direct Bilirubin 0.00 Indirect Bilirubin 0.9 Aspartate Amino Transf (AST/SGOT) 2159 H Alanine Aminotransferase (ALT/SGPT) 2692 H Alkaline Phosphatase 123 H Total Protein 8.0 Albumin 4.1 Globulin 3.90 H Albumin/Globulin Ratio 1.05 Exam/Review of Systems Exam Vitals Vital Signs Date Temp Pulse Resp B/P (MAP) Pulse Ox O2 O2 Flow FiO2 Time Delivery Rate 02/20/19 78 20 120/80 100 08:30 (93) 02/20/19 98.7 Mechanical 08:00 Ventilator 02/20/19 30 08:00 02/17/19 2.0 07:45 Intake and Output 02/19/19 02/19/19 02/20/19 1515:00 23:00 07:00 IntakeIntake Total 291.28 ml 621.16 ml 497.39 ml OutputOutput Total 3100 ml 0 ml 0 ml BalanceBalance -2808.72 ml 621.16 ml 497.39 ml Results Results 24hrs Laboratory Tests Test 02/20/19 05:00 White Blood Count 10.2 # Red Blood Count 2.94 L Hemoglobin 9.1 L Hematocrit 28.8 L Mean Corpuscular Volume 98.0 Mean Corpuscular Hemoglobin 31.0 Mean Corpuscular Hemoglobin Concent 31.6 L Red Cell Distribution Width 16.5 H Platelet Count 105 L Mean Platelet Volume 13.3 H Immature Granulocytes % 0.500 H Neutrophils % Segmented Neutrophils % (Manual) 78 H Band Neutrophils % (Manual) 9 H Lymphocytes % Lymphocytes % (Manual) 11 L Monocytes % Monocytes % (Manual) 1 Eosinophils % Basophils % Basophils % (Manual) 1 Nucleated Red Blood Cells % 4 H Immature Granulocytes # 0.050 H Neutrophils # Neutrophils # (Manual) 8.0 H Band Neutrophils # 0.9 H Lymphocytes (Manual) 1.1 Lymphocytes # Monocytes # Monocytes # (Manual) 0.1 L Eosinophils # Basophils # Basophils # (Manual) 0.1 H Nucleated Red Blood Cells # Platelet Estimate DECREASED Giant Platelets 1 H Polychromasia 1+ Anisocytosis 1+ Sodium Level 140 Potassium Level 3.5 Chloride Level 98 Carbon Dioxide Level 28 Anion Gap 14 H Blood Urea Nitrogen 27 H Creatinine 3.31 H Est Glomerular Filtrat Rate mL/min 16 L Glucose Level 94 Calcium Level 9.9 Phosphorus Level 2.3 L Magnesium Level 2.0 Total Bilirubin 0.9 Direct Bilirubin 0.00 Indirect Bilirubin 0.9 Aspartate Amino Transf (AST/SGOT) 2159 H Alanine Aminotransferase (ALT/SGPT) 2692 H Alkaline Phosphatase 123 H Total Protein 8.0 Albumin 4.1 Globulin 3.90 H Albumin/Globulin Ratio 1.05 Medications Medication Current Medications IV Flush (NS 3 ml) 3 ml PER PROTOCOL IV ; Start 02/16/19 at 23:30 Ondansetron HCl (Zofran Tab) 4 mg Q6H PRN PO NAUSEA/VOMITING; Start 02/16/19 at 23:30 Nitroglycerin (Nitroglycerin (Sl Tab) 0.4 Mg) 1 tab Q5M PRN SL .CHEST PAIN; Start 02/16/19 at 23:30 Acetaminophen (Tylenol Tab) 650 mg Q6H PRN PO .PAIN 1-3 OR TEMP Last administered on 02/19/19 16:45; Admin Dose 650 MG; Start 02/16/19 at 23:30 Carvedilol (Coreg) 50 mg Q12 PO Last administered on 02/17/19 21:55; Admin Dose 50 MG; Start 02/16/19 at 23:30; Status Hold Clonidine (Catapres) 0.1 mg TID PO Last administered on 02/17/19 21:55; Admin Dose 0.1 MG; Start 02/17/19 at 09:00; Status Hold Hydroxychloroquine Sulfate (Plaquenil) 200 mg DAILY PO Last administered on 02/20/19 08:55; Admin Dose 200 MG; Start 02/17/19 at 09:00 Mycophenolate Mofetil (Cellcept) 1,000 mg BID PO Last administered on 02/20/19 08:56; Admin Dose 1,000 MG; Start 02/16/19 at 23:30 Nifedipine (Procardia Xl) 60 mg BID PO Last administered on 02/17/19 21:55; Admin Dose 60 MG; Start 02/16/19 at 23:30 Prednisone (Prednisone) 5 mg DAILY PO Last administered on 02/20/19 08:56; Admin Dose 5 MG; Start 02/17/19 at 09:00 Sertraline HCl (Zoloft) 25 mg DAILY PO Last administered on 02/20/19 08:55; Admin Dose 25 MG; Start 02/17/19 at 09:00 Sevelamer Carbonate (Renvela) 0.8 gm WITH MEALS PO Last administered on 02/20/19 08:55; Admin Dose 0.8 GM; Start 02/17/19 at 08:00 Zolpidem Tartrate (Ambien) 5 mg HS PRN PO INSOMNIA; Start 02/17/19 at 12:30 Heparin Sodium (Porcine) (Heparin (5000 Units/1ml)) 5,000 unit Q8 SC Last administered on 02/18/19 06:06; Admin Dose 5,000 UNIT; Start 02/17/19 at 02:00; Status Hold Labetalol HCl (Labetalol) 10 mg Q4 PRN IV SPB>170; Start 02/17/19 at 05:00 Heparin Sodium (Porcine) (Heparin (1000 Units/ml)) 4,000 unit AFTER DIALYSIS CATHETER ; Start 02/17/19 at 05:30 Albumin Human 100 ml @ 100 mls/hr WITH DIALYSIS PRN IV SBP <90 DURING DIALYSIS Last administered on 02/17/19 12:27; Admin Dose 100 MLS/HR; Start 02/17/19 at 05:30 Sodium Chloride (NS) -To prime the dialy... DIRECTED FOR HD PRN IV HD; Start 02/17/19 at 05:30 Hydromorphone HCl (Dilaudid) 0.5 mg Q8H PRN IV SEVERE PAIN LEVEL 7-10; Start 02/17/19 at 10:30 Midazolam HCl 50 ml @ 1 mls/hr PER PROTOCOL IV Last administered on 02/20/19 06:49; Admin Dose 2 MLS/HR; Start 02/17/19 at 09:30 Fentanyl 100 ml @ 2.5 mls/hr PER PROTOCOL IV Last administered on 02/19/19at 20:43; Admin Dose 4 MLS/HR; Start 02/17/19 at 10:30 Phenylephrine HCl 80 mg/Dextrose 250 ml @ 18.75 mls/ hr TITRATE IV Last administered on 02/20/19 00:16; Admin Dose 20.63 MLS/HR; Start 02/18/19 at 00:30 Piperacillin Sod/ Tazobactam Sod 50 ml @ 200 mls/hr Q8 IVPB Last administered on 02/20/19 05:22; Admin Dose 200 MLS/HR; Start 02/18/19 at 12:00 Aspirin (Aspirin) 81 mg DAILY NGT Last administered on 02/20/19 08:56; Admin Dose 81 MG; Start 02/18/19 at 10:00 Pantoprazole (Protonix Iv) 40 mg DAILY@06 IV Last administered on 02/20/19 05:22; Admin Dose 40 MG; Start 02/19/19 at 06:00 Vancomycin HCl (Vanco Iv Per Pharmacy) VANCOMYCIN PER PHARMA... PER PROTOCOL XX ; Start 02/19/19 at 18:30 CONSTANCE THOMPSON Feb 20, 2019 11:06
--- NOTE | 2019-02-20 11:09 | CONS ---
Assessment/Plan Assessment/Plan Assessment/Plan (Daily) 1. acute hypoxic respiratory distress due to acute pulmonary edema 2. ESRD on HD 4 times a week at [facility] schedule 3. Acute chest pain 4. Hyperkalemia 5. h/o Lupus 6. h/o HTN 7. H/o HL 8. H/o seizure disorder Plan: getting HD x 3 days in row, s/p HD today 2.3 L removed pt follows at [facility] unit and she gets HD 4 times a week on Tuesday, Tuesday, and Tuesday weaning plan as per pulmonary will follow up Consultation Date/Type/Reason Admit Date/Time Feb 17, 2019 at 09:30 Initial Consult Date 02/17/19 Type of Consult NEPHROLOGY Requesting Provider: SONY SOTO Date/Time of Note DATE: 02/20/19 TIME: 11:09 Exam/Review of Systems Exam Vitals Vital Signs Date Temp Pulse Resp B/P (MAP) Pulse Ox O2 O2 Flow FiO2 Time Delivery Rate 02/20/19 78 20 120/80 100 08:30 (93) 02/20/19 98.7 Mechanical 08:00 Ventilator 02/20/19 30 08:00 02/17/19 2.0 07:45 Intake and Output 02/19/19 02/19/19 02/20/19 1414:59 22:59 06:59 IntakeIntake Total 241.28 ml 613.04 ml 501.14 ml OutputOutput Total 3100 ml 0 ml 0 ml BalanceBalance -2858.72 ml 613.04 ml 501.14 ml Exam GENERAL: Chronically ill appearing lady, orally intubated on mechanical ventilation.: NECK: Supple, no JVD or lymphadenopathy. CARDIAC: S1, S2, no added sounds or murmurs. CHEST: Diminished air entry bilaterally. ABDOMEN: Soft, nontender. No guarding or rebound. EXTREMITIES: No cyanosis, clubbing, 1+ edema. NEUROLOGIC: Generalized weakness. Results Result Diagram: 02/20/19 0500 02/20/19 0500 Results 24hrs Laboratory Tests Test 02/20/19 05:00 White Blood Count 10.2 # Red Blood Count 2.94 L Hemoglobin 9.1 L Hematocrit 28.8 L Mean Corpuscular Volume 98.0 Mean Corpuscular Hemoglobin 31.0 Mean Corpuscular Hemoglobin Concent 31.6 L Red Cell Distribution Width 16.5 H Platelet Count 105 L Mean Platelet Volume 13.3 H Immature Granulocytes % 0.500 H Neutrophils % Segmented Neutrophils % (Manual) 78 H Band Neutrophils % (Manual) 9 H Lymphocytes % Lymphocytes % (Manual) 11 L Monocytes % Monocytes % (Manual) 1 Eosinophils % Basophils % Basophils % (Manual) 1 Nucleated Red Blood Cells % 4 H Immature Granulocytes # 0.050 H Neutrophils # Neutrophils # (Manual) 8.0 H Band Neutrophils # 0.9 H Lymphocytes (Manual) 1.1 Lymphocytes # Monocytes # Monocytes # (Manual) 0.1 L Eosinophils # Basophils # Basophils # (Manual) 0.1 H Nucleated Red Blood Cells # Platelet Estimate DECREASED Giant Platelets 1 H Polychromasia 1+ Anisocytosis 1+ Sodium Level 140 Potassium Level 3.5 Chloride Level 98 Carbon Dioxide Level 28 Anion Gap 14 H Blood Urea Nitrogen 27 H Creatinine 3.31 H Est Glomerular Filtrat Rate mL/min 16 L Glucose Level 94 Calcium Level 9.9 Phosphorus Level 2.3 L Magnesium Level 2.0 Total Bilirubin 0.9 Direct Bilirubin 0.00 Indirect Bilirubin 0.9 Aspartate Amino Transf (AST/SGOT) 2159 H Alanine Aminotransferase (ALT/SGPT) 2692 H Alkaline Phosphatase 123 H Total Protein 8.0 Albumin 4.1 Globulin 3.90 H Albumin/Globulin Ratio 1.05 Medications Medication Current Medications IV Flush (NS 3 ml) 3 ml PER PROTOCOL IV ; Start 02/16/19 at 23:30 Ondansetron HCl (Zofran Tab) 4 mg Q6H PRN PO NAUSEA/VOMITING; Start 02/16/19 at 23:30 Nitroglycerin (Nitroglycerin (Sl Tab) 0.4 Mg) 1 tab Q5M PRN SL .CHEST PAIN; Start 02/16/19 at 23:30 Acetaminophen (Tylenol Tab) 650 mg Q6H PRN PO .PAIN 1-3 OR TEMP Last administered on 02/19/19at 16:45; Admin Dose 650 MG; Start 02/16/19 at 23:30 Carvedilol (Coreg) 50 mg Q12 PO Last administered on 02/17/19at 21:55; Admin Dose 50 MG; Start 02/16/19 at 23:30; Status Hold Clonidine (Catapres) 0.1 mg TID PO Last administered on 02/17/19at 21:55; Admin Dose 0.1 MG; Start 02/17/19 at 09:00; Status Hold Hydroxychloroquine Sulfate (Plaquenil) 200 mg DAILY PO Last administered on 02/20/19 08:55; Admin Dose 200 MG; Start 02/17/19 at 09:00 Mycophenolate Mofetil (Cellcept) 1,000 mg BID PO Last administered on 02/20/19 08:56; Admin Dose 1,000 MG; Start 02/16/19 at 23:30 Nifedipine (Procardia Xl) 60 mg BID PO Last administered on 02/17/19 21:55; Admin Dose 60 MG; Start 02/16/19 at 23:30 Prednisone (Prednisone) 5 mg DAILY PO Last administered on 02/20/19 08:56; Admin Dose 5 MG; Start 02/17/19 at 09:00 Sertraline HCl (Zoloft) 25 mg DAILY PO Last administered on 02/20/19 08:55; Admin Dose 25 MG; Start 02/17/19 at 09:00 Sevelamer Carbonate (Renvela) 0.8 gm WITH MEALS PO Last administered on 02/20/19 08:55; Admin Dose 0.8 GM; Start 02/17/19 at 08:00 Zolpidem Tartrate (Ambien) 5 mg HS PRN PO INSOMNIA; Start 02/17/19 at 12:30 Heparin Sodium (Porcine) (Heparin (5000 Units/1ml)) 5,000 unit Q8 SC Last administered on 02/18/19 06:06; Admin Dose 5,000 UNIT; Start 02/17/19 at 02:00; Status Hold Labetalol HCl (Labetalol) 10 mg Q4 PRN IV SPB>170; Start 02/17/19 at 05:00 Heparin Sodium (Porcine) (Heparin (1000 Units/ml)) 4,000 unit AFTER DIALYSIS CATHETER ; Start 02/17/19 at 05:30 Albumin Human 100 ml @ 100 mls/hr WITH DIALYSIS PRN IV SBP <90 DURING DIALYSIS Last administered on 02/17/19at 12:27; Admin Dose 100 MLS/HR; Start 02/17/19 at 05:30 Sodium Chloride (NS) -To prime the dialy... DIRECTED FOR HD PRN IV HD; Start 02/17/19 at 05:30 Hydromorphone HCl (Dilaudid) 0.5 mg Q8H PRN IV SEVERE PAIN LEVEL 7-10; Start 02/17/19 at 10:30 Midazolam HCl 50 ml @ 1 mls/hr PER PROTOCOL IV Last administered on 02/20/19at 06:49; Admin Dose 2 MLS/HR; Start 02/17/19 at 09:30 Fentanyl 100 ml @ 2.5 mls/hr PER PROTOCOL IV Last administered on 02/19/19at 20:43; Admin Dose 4 MLS/HR; Start 02/17/19 at 10:30 Phenylephrine HCl 80 mg/Dextrose 250 ml @ 18.75 mls/ hr TITRATE IV Last administered on 02/20/19at 00:16; Admin Dose 20.63 MLS/HR; Start 02/18/19 at 00:30 Piperacillin Sod/ Tazobactam Sod 50 ml @ 200 mls/hr Q8 IVPB Last administered on 02/20/19 05:22; Admin Dose 200 MLS/HR; Start 02/18/19 at 12:00 Aspirin (Aspirin) 81 mg DAILY NGT Last administered on 02/20/19at 08:56; Admin Dose 81 MG; Start 02/18/19 at 10:00 Pantoprazole (Protonix Iv) 40 mg DAILY@06 IV Last administered on 02/20/19at 05:22; Admin Dose 40 MG; Start 02/19/19 at 06:00 Vancomycin HCl (Vanco Iv Per Pharmacy) VANCOMYCIN PER PHARMA... PER PROTOCOL XX ; Start 02/19/19 at 18:30 ARTURO AMADOR MD Feb 20, 2019 11:09
--- NOTE | 2019-02-20 16:15 | CONS ---
Assessment/Plan Assessment/Plan Hospital Course (Demo Recall) Acute hypoxemic hypercapnic respiratory failure status post intubation underwent Congestive heart failure/fluid overload: Acute on chronic secondary to fluid overload and probably diastolic heart failure End-stage renal disease on hemodialysis Possible pneumonia History of lupus History of pericardial effusion Anemia Hypertension Recommendation: Antibiotic management as per internal medicine and pulmonary fitness sales consultant We will continue to monitor on telemetry Ventilatory support will be continued for now. Weaning trial tomorrow if remains stable Hemodialysis will be continued managed as per renal Coreg to be resumed her blood pressure is elevated frequently has been low /stable now Continue with ICU care Thank you for his referral. We will continue to follow along with you SERGO MUNOZ MD [facility] Consultation Date/Type/Reason Admit Date/Time Feb 17, 2019 at 09:30 Date of Consultation: Feb 20, 2019 Type of Consult Cardiology Reason for Consultation CHF Requesting Provider: JAKY ZELAYA MD, [facility] Date/Time of Note DATE: 02/20/19 TIME: 16:10 Hx of Present Illness Interventional cardiology consultation note Chief complaint: SOB Reason for consult: CHF , History of present illness: Thank you for this referral. History was obtained from pt FAMILY and discussion with the physician and staff review of the old chart patient was very well-known to me from previous admission to the hospital. This is a 33-year-old female who is well known to me from multiple hospital izations, with multiple complicated medical problems who was brought in because of increase in shortness of breath . Patient is still fluid overload. By the morning patient is status post and had to be intubated. Patient currently intubated on the vent. She is still has not been able to weaned off and has had increasing secretions. Blood pressures currently stable on the sedation though. PAST MEDICAL HISTORY: 1. Lupus. 2. End-stage renal disease on hemodialysis. 3. Hypertension. 4. Chronic depression. 5. History of small to moderate pericardial effusion has been stable 6. History of right upper extremity DVT and cellulitis previously anticoagulation PAST SURGICAL HISTORY: Includes dialysis access placement and a . ALLERGIES: 1. ADHESIVE TAPE. 2. HYDROCODONE. SOCIAL HISTORY: The patient resides with her parents and her family who cares for her. Denies tobacco, alcohol or illicit drug use. Family history: No reported history of early coronary artery disease Review of system: Patient denies all others except for above-mentioned Past Medical History Home Meds Active Scripts Gentamicin-NS (Gentamicin-NS) 60 Mg/50 Ml Iv.soln., 50 MG IVPB AFTER DIALYSIS, #4 DOSE Prov:FARHAD LEZAMAFabrizio 02/01/19 Sevelamer Carbonate* (Renvela*) 800 Mg Tablet, 800 MG PO WITH MEALS, #90 TAB 2 Refills Prov:FARHAD LEZAMA . 02/01/19 Aspirin* (Aspirin* (EC)) 81 Mg Tablet., 81 MG PO DAILY, #30 TAB 2 Refills otc Prov:LI GIL MD 01/15/19 Clonidine Hcl* (Catapres*) 0.1 Mg Tablet, 0.1 MG PO TID, #90 TAB Prov:VALERIA PETER NP 12/14/18 Carvedilol* (Carvedilol*) 25 Mg Tablet, 50 MG PO Q12, #60 TAB Prov:FARHAD LEZAMA 11/23/18 Diphenhydramine Hcl* (Benadryl*) 25 Mg Cap, 25 MG PO Q6 PRN for ITCHING/RASH, #30 TAB Prov:FADY ADAM 11/16/18 Nifedipine (Procardia Xl) 60 Mg Tab.er.24, 60 MG PO BID for 30 Days, #60 TAB 2 Refills Prov:FARHAD LEZAMA . 10/30/18 Sertraline Hcl* (Sertraline Hcl*) 25 Mg Tablet, 25 MG PO DAILY for anxiety, #30 [facility] 10/30/18 Hydroxyzine Hcl* (Atarax*) 25 Mg Tab, 50 MG PO Q8H PRN for ITCHING, #30 TAB Prov[facility]. 10/30/18 Pantoprazole* (Pantoprazole*) 40 Mg Tablet.dr, 40 MG PO DAILY, #30 TAB 2 Refills Prov[facility] Hospital[facility] 10/30/18 Reported Medications Temazepam (Restoril) 15 Mg Cap, 15 MG PO QHS PRN for SLEEP for 30 Days 12/21/18 Prednisone* (Prednisone*) 5 Mg Tab, 5 MG PO DAILY, TAB 11/16/18 Mycophenolate Mofetil* (Mycophenolate Mofetil*) 500 Mg Tablet, 1000 MG PO BID, TAB TAKE 2 TABLET BY MOUTH EVERY MORNING AND EVENING 06/30/18 Hydroxychloroquine Sulfate* (Hydroxychloroquine Sulfate*) 200 Mg Tablet, 200 MG PO DAILY, TAB TAKE 1 TAB BY MOUTH EVERY TUESDAY-Tuesday06/30/18 Discontinued Scripts [gentamicin] No Conflict Check, IV for pneumonia pharmacy to dose Prov:FARHAD LEZAMAFabrizio 02/01/19 Medications Current Medications IV Flush (NS 3 ml) 3 ml PER PROTOCOL IV ; Start 02/16/19 at 23:30 Ondansetron HCl (Zofran Tab) 4 mg Q6H PRN PO NAUSEA/VOMITING; Start 02/16/19 at 23:30 Nitroglycerin (Nitroglycerin (Sl Tab) 0.4 Mg) 1 tab Q5M PRN SL .CHEST PAIN; Start 02/16/19 at 23:30 Acetaminophen (Tylenol Tab) 650 mg Q6H PRN PO .PAIN 1-3 OR TEMP Last administered on 02/19/19at 16:45; Admin Dose 650 MG; Start 02/16/19 at 23:30 Carvedilol (Coreg) 50 mg Q12 PO Last administered on 02/17/19 21:55; Admin Dose 50 MG; Start 02/16/19 at 23:30; Status Hold Clonidine (Catapres) 0.1 mg TID PO Last administered on 02/17/19 21:55; Admin Dose 0.1 MG; Start 02/17/19 at 09:00; Status Hold Hydroxychloroquine Sulfate (Plaquenil) 200 mg DAILY PO Last administered on 02/20/19 08:55; Admin Dose 200 MG; Start 02/17/19 at 09:00 Mycophenolate Mofetil (Cellcept) 1,000 mg BID PO Last administered on 02/20/19 08:56; Admin Dose 1,000 MG; Start 02/16/19 at 23:30 Nifedipine (Procardia Xl) 60 mg BID PO Last administered on 02/17/19 21:55; Admin Dose 60 MG; Start 02/16/19 at 23:30 Prednisone (Prednisone) 5 mg DAILY PO Last administered on 02/20/19 08:56; Admin Dose 5 MG; Start 02/17/19 at 09:00 Sertraline HCl (Zoloft) 25 mg DAILY PO Last administered on 02/20/19 08:55; Admin Dose 25 MG; Start 02/17/19 at 09:00 Sevelamer Carbonate (Renvela) 0.8 gm WITH MEALS PO Last administered on 02/20/19 12:14; Admin Dose 0.8 GM; Start 02/17/19 at 08:00 Zolpidem Tartrate (Ambien) 5 mg HS PRN PO INSOMNIA; Start 02/17/19 at 12:30 Heparin Sodium (Porcine) (Heparin (5000 Units/1ml)) 5,000 unit Q8 SC Last administered on 02/18/19 06:06; Admin Dose 5,000 UNIT; Start 02/17/19 at 02:00; Status Hold Labetalol HCl (Labetalol) 10 mg Q4 PRN IV SPB>170; Start 02/17/19 at 05:00 Heparin Sodium (Porcine) (Heparin (1000 Units/ml)) 4,000 unit AFTER DIALYSIS CATHETER ; Start 02/17/19 at 05:30 Albumin Human 100 ml @ 100 mls/hr WITH DIALYSIS PRN IV SBP <90 DURING DIALYSIS Last administered on 02/17/19 12:27; Admin Dose 100 MLS/HR; Start 02/17/19 at 05:30 Sodium Chloride (NS) -To prime the dialy... DIRECTED FOR HD PRN IV HD; Start 02/17/19 at 05:30 Hydromorphone HCl (Dilaudid) 0.5 mg Q8H PRN IV SEVERE PAIN LEVEL 7-10; Start 02/17/19 at 10:30 Midazolam HCl 50 ml @ 1 mls/hr PER PROTOCOL IV Last administered on 02/20/19 06:49; Admin Dose 2 MLS/HR; Start 02/17/19 at 09:30 Fentanyl 100 ml @ 2.5 mls/hr PER PROTOCOL IV Last administered on 02/19/19at 20:43; Admin Dose 4 MLS/HR; Start 02/17/19 at 10:30 Phenylephrine HCl 80 mg/Dextrose 250 ml @ 18.75 mls/ hr TITRATE IV Last administered on 02/20/19 14:06; Admin Dose 18.75 MLS/HR; Start 02/18/19 at 00:30 Piperacillin Sod/ Tazobactam Sod 50 ml @ 200 mls/hr Q8 IVPB Last administered on 02/20/19at 15:39; Admin Dose 200 MLS/HR; Start 02/18/19 at 12:00 Aspirin (Aspirin) 81 mg DAILY NGT Last administered on 02/20/19at 08:56; Admin Dose 81 MG; Start 02/18/19 at 10:00 Vancomycin HCl (Vanco Iv Per Pharmacy) VANCOMYCIN PER PHARMA... PER PROTOCOL XX ; Start 02/19/19 at 18:30 Miscellaneous Information (*Rx Drug Level Order Reminder*) RANDOM VANCOMYCIN LEVEL 4... 0500 ONCE XX ; Start 02/21/19 at 05:00; Stop 02/21/19 at 05:01 Lansoprazole (Prevacid) 30 mg DAILY@06 GTB ; Start 02/21/19 at 06:00 Allergies: Coded Allergies: hydrocodone (Unverified Allergy, Unknown, paralysis, 02/16/19) Past Surgical History Past Surgical Hx: other (AVF, permacath ) Social History Alcohol Use: none Smoking Status: Never smoker Drug Use: none Exam/Review of Systems Vital Signs Vitals Vital Signs Date Temp Pulse Resp B/P (MAP) Pulse Ox O2 O2 Flow FiO2 Time Delivery Rate 02/20/19 77 15:25 02/20/19 100/80 14:30 (87) 02/20/19 98 14:15 02/20/19 Mechanical 14:00 Ventilator 02/20/19 98.3 12:00 02/20/19 30 08:00 02/17/19 2.0 07:45 Intake and Output 02/19/19 02/19/19 02/20/19 1515:00 23:00 07:00 IntakeIntake Total 291.28 ml 621.16 ml 497.39 ml OutputOutput Total 3100 ml 0 ml 0 ml BalanceBalance -2808.72 ml 621.16 ml 497.39 ml Exam Exam General: Thin young lady status post intubation underwent HEENT: NC/AT. pupils are equal. round. NECK: NO JVD. no stridor. CV: RRR. systolic murmur; no gallop or rubs. PULM: no wheezing or rhonchi. GI: SOFT, NT, ND, no rebound or guarding Extremity: trace B/L LE edema. no clubbing. neuro: Sedated now Psych: calm and pleasant rectal: deferred EKG done February 16 shows sinus tachycardia with differential enlargement Chest x-ray on 02/16/2019 shows:Cardiomegaly with pulmonary vascular congestion. Chest x-ray done 02/20/2019 showed: Mild retrocardiac infiltrate. Labs Result Diagram: 02/20/19 0500 02/20/19 0500 Results 24hrs Laboratory Tests Test 02/20/19 05:00 White Blood Count 10.2 # Red Blood Count 2.94 L Hemoglobin 9.1 L Hematocrit 28.8 L Mean Corpuscular Volume 98.0 Mean Corpuscular Hemoglobin 31.0 Mean Corpuscular Hemoglobin Concent 31.6 L Red Cell Distribution Width 16.5 H Platelet Count 105 L Mean Platelet Volume 13.3 H Immature Granulocytes % 0.500 H Neutrophils % Segmented Neutrophils % (Manual) 78 H Band Neutrophils % (Manual) 9 H Lymphocytes % Lymphocytes % (Manual) 11 L Monocytes % Monocytes % (Manual) 1 Eosinophils % Basophils % Basophils % (Manual) 1 Nucleated Red Blood Cells % 4 H Immature Granulocytes # 0.050 H Neutrophils # Neutrophils # (Manual) 8.0 H Band Neutrophils # 0.9 H Lymphocytes (Manual) 1.1 Lymphocytes # Monocytes # Monocytes # (Manual) 0.1 L Eosinophils # Basophils # Basophils # (Manual) 0.1 H Nucleated Red Blood Cells # Platelet Estimate DECREASED Giant Platelets 1 H Polychromasia 1+ Anisocytosis 1+ Sodium Level 140 Potassium Level 3.5 Chloride Level 98 Carbon Dioxide Level 28 Anion Gap 14 H Blood Urea Nitrogen 27 H Creatinine 3.31 H Est Glomerular Filtrat Rate mL/min 16 L Glucose Level 94 Calcium Level 9.9 Phosphorus Level 2.3 L Magnesium Level 2.0 Total Bilirubin 0.9 Direct Bilirubin 0.00 Indirect Bilirubin 0.9 Aspartate Amino Transf (AST/SGOT) 2159 H Alanine Aminotransferase (ALT/SGPT) 2692 H Alkaline Phosphatase 123 H Total Protein 8.0 Albumin 4.1 Globulin 3.90 H Albumin/Globulin Ratio 1.05 Medications Medications Current Medications IV Flush (NS 3 ml) 3 ml PER PROTOCOL IV ; Start 02/16/19 at 23:30 Ondansetron HCl (Zofran Tab) 4 mg Q6H PRN PO NAUSEA/VOMITING; Start 02/16/19 at 23:30 Nitroglycerin (Nitroglycerin (Sl Tab) 0.4 Mg) 1 tab Q5M PRN SL .CHEST PAIN; Start 02/16/19 at 23:30 Acetaminophen (Tylenol Tab) 650 mg Q6H PRN PO .PAIN 1-3 OR TEMP Last administered on 02/19/19 16:45; Admin Dose 650 MG; Start 02/16/19 at 23:30 Carvedilol (Coreg) 50 mg Q12 PO Last administered on 02/17/19 21:55; Admin Dose 50 MG; Start 02/16/19 at 23:30; Status Hold Clonidine (Catapres) 0.1 mg TID PO Last administered on 02/17/19 21:55; Admin Dose 0.1 MG; Start 02/17/19 at 09:00; Status Hold Hydroxychloroquine Sulfate (Plaquenil) 200 mg DAILY PO Last administered on 02/20/19 08:55; Admin Dose 200 MG; Start 02/17/19 at 09:00 Mycophenolate Mofetil (Cellcept) 1,000 mg BID PO Last administered on 02/20/19 08:56; Admin Dose 1,000 MG; Start 02/16/19 at 23:30 Nifedipine (Procardia Xl) 60 mg BID PO Last administered on 02/17/19 21:55; Admin Dose 60 MG; Start 02/16/19 at 23:30 Prednisone (Prednisone) 5 mg DAILY PO Last administered on 02/20/19 08:56; Admin Dose 5 MG; Start 02/17/19 at 09:00 Sertraline HCl (Zoloft) 25 mg DAILY PO Last administered on 02/20/19 08:55; Admin Dose 25 MG; Start 02/17/19 at 09:00 Sevelamer Carbonate (Renvela) 0.8 gm WITH MEALS PO Last administered on 02/20/19 12:14; Admin Dose 0.8 GM; Start 02/17/19 at 08:00 Zolpidem Tartrate (Ambien) 5 mg HS PRN PO INSOMNIA; Start 02/17/19 at 12:30 Heparin Sodium (Porcine) (Heparin (5000 Units/1ml)) 5,000 unit Q8 SC Last administered on 02/18/19 06:06; Admin Dose 5,000 UNIT; Start 02/17/19 at 02:00; Status Hold Labetalol HCl (Labetalol) 10 mg Q4 PRN IV SPB>170; Start 02/17/19 at 05:00 Heparin Sodium (Porcine) (Heparin (1000 Units/ml)) 4,000 unit AFTER DIALYSIS CATHETER ; Start 02/17/19 at 05:30 Albumin Human 100 ml @ 100 mls/hr WITH DIALYSIS PRN IV SBP <90 DURING DIALYSIS Last administered on 02/17/19at 12:27; Admin Dose 100 MLS/HR; Start 02/17/19 at 05:30 Sodium Chloride (NS) -To prime the dialy... DIRECTED FOR HD PRN IV HD; Start 02/17/19 at 05:30 Hydromorphone HCl (Dilaudid) 0.5 mg Q8H PRN IV SEVERE PAIN LEVEL 7-10; Start 02/17/19 at 10:30 Midazolam HCl 50 ml @ 1 mls/hr PER PROTOCOL IV Last administered on 02/20/19at 06:49; Admin Dose 2 MLS/HR; Start 02/17/19 at 09:30 Fentanyl 100 ml @ 2.5 mls/hr PER PROTOCOL IV Last administered on 02/19/19at 20:43; Admin Dose 4 MLS/HR; Start 02/17/19 at 10:30 Phenylephrine HCl 80 mg/Dextrose 250 ml @ 18.75 mls/ hr TITRATE IV Last administered on 02/20/19at 14:06; Admin Dose 18.75 MLS/HR; Start 02/18/19 at 00:30 Piperacillin Sod/ Tazobactam Sod 50 ml @ 200 mls/hr Q8 IVPB Last administered on 02/20/19at 15:39; Admin Dose 200 MLS/HR; Start 02/18/19 at 12:00 Aspirin (Aspirin) 81 mg DAILY NGT Last administered on 02/20/19at 08:56; Admin Dose 81 MG; Start 02/18/19 at 10:00 Vancomycin HCl (Vanco Iv Per Pharmacy) VANCOMYCIN PER PHARMA... PER PROTOCOL XX ; Start 02/19/19 at 18:30 Miscellaneous Information (*Rx Drug Level Order Reminder*) RANDOM VANCOMYCIN LEVEL 4... 0500 ONCE XX ; Start 02/21/19 at 05:00; Stop 02/21/19 at 05:01 Lansoprazole (Prevacid) 30 mg DAILY@06 GTB ; Start 02/21/19 at 06:00 SERGO MUNOZ MD Feb 20, 2019 16:15
[2019-02-20] MEDS: FENTAnyl (DRIP) 1000 mcg/100mL 100 ML IV SCH (19:54)
[2019-02-21] VITALS (85 sets, daily range): BP systolic 114–162; BP diastolic 77–107; PULSE 74–101; RESP 12–29
[2019-02-21] MEDS: LANSOPRAZOLE 30 MG CAP GTB SCH (05:51)
[2019-02-21] MEDS: PIPER-TAZO 2.25 GM (PMX) 50 ML IVPB SCH ×3 (05:51→22:33)
[2019-02-21] MEDS: PHENYLephrine 80 MG in DEXTROSE 5% 242 ML IV SCH (05:56)
--- NOTE | 2019-02-21 07:25 | CONS ---
Consult Date/Type/Reason Admit Date/Time Feb 17, 2019 at 09:30 Initial Consult Date 02/20/19 Type of Consultation: cv Requesting Provider: JAKY ZELAYA MD, [facility] Date/Time of Note DATE: 02/21/19 TIME: 07:23 Subjective Interventional cardiology follow-up progress Subjective: Case discussed with the staff and telemetry was reviewed. Patient has remains in ICU on the vent. She remains in sinus rhythm Patient is nonverbal and intubated on the vent She is a still on Sandeep-Synephrine drip for pressure support Objective: General: Thin young lady status post intubation on the vent HEENT: NC/AT. pupils are equal. round. NECK: NO JVD. no stridor. CV: RRR. systolic murmur; no gallop or rubs. PULM: no wheezing or rhonchi. GI: SOFT, NT, ND, no rebound or guarding Extremity: trace B/L LE edema. no clubbing. neuro: Sedated now Psych: calm and pleasant rectal: deferred EKG done February 16 shows sinus tachycardia with differential enlargement Chest x-ray on 02/16/2019 shows:Cardiomegaly with pulmonary vascular congestion. Chest x-ray done 02/20/2019 showed: Mild retrocardiac infiltrate. Objective Vitals Vital Signs Date Temp Pulse Resp B/P (MAP) Pulse Ox O2 O2 Flow FiO2 Time Delivery Rate 02/21/19 77 15 147/96 100 06:45 (113) 02/21/19 Mechanical 06:00 Ventilator 02/21/19 30 05:13 02/21/19 97.8 04:00 02/17/19 2.0 07:45 Intake and Output 02/20/19 02/20/19 02/21/19 1515:00 23:00 07:00 IntakeIntake Total 579.16 ml 609.40 ml 444.39 ml OutputOutput Total 200 ml 2700 ml 0 ml BalanceBalance 379.16 ml -2090.60 ml 444.39 ml Results/Medications Result Diagram: 02/21/19 0500 02/20/19 0500 Results 24 hrs Laboratory Tests Test 02/21/19 05:00 White Blood Count 8.2 Red Blood Count 3.31 L Hemoglobin 9.9 L Hematocrit 32.5 L Mean Corpuscular Volume 98.2 Mean Corpuscular Hemoglobin 29.9 Mean Corpuscular Hemoglobin Concent 30.5 L Red Cell Distribution Width 17.1 H Platelet Count 131 #L Mean Platelet Volume 12.8 H Immature Granulocytes % 0.700 H Neutrophils % 74.9 Lymphocytes % 13.7 L Monocytes % 8.6 Eosinophils % 1.6 Basophils % 0.5 Nucleated Red Blood Cells % 3.5 H Immature Granulocytes # 0.060 H Neutrophils # 6.1 Lymphocytes # 1.1 Monocytes # 0.7 Eosinophils # 0.1 Basophils # 0.0 Nucleated Red Blood Cells # 0.3 H Phosphorus Level 1.5 L Magnesium Level 2.4 Total Bilirubin 0.6 Direct Bilirubin 0.00 Indirect Bilirubin 0.6 Aspartate Amino Transf (AST/SGOT) 941 H Alanine Aminotransferase (ALT/SGPT) 2030 H Alkaline Phosphatase 174 H Total Protein 8.6 H Albumin 4.6 Random Vancomycin Level 14.9 Home Meds Active Scripts Gentamicin-NS (Gentamicin-NS) 60 Mg/50 Ml Iv.soln., 50 MG IVPB AFTER DIALYSIS, #4 DOSE Prov:FARHAD LEZAMA 02/01/19 Sevelamer Carbonate* (Renvela*) 800 Mg Tablet, 800 MG PO WITH MEALS, #90 TAB 2 Refills Prov:FARHAD LEZAMA 02/01/19 Aspirin* (Aspirin* (EC)) 81 Mg Tablet.dr, 81 MG PO DAILY, #30 TAB 2 Refills otc Prov:LI GIL MD 01/15/19 Clonidine Hcl* (Catapres*) 0.1 Mg Tablet, 0.1 MG PO TID, #90 TAB Prov:VALERIA PETER NP 12/14/18 Carvedilol* (Carvedilol*) 25 Mg Tablet, 50 MG PO Q12, #60 TAB Prov:FARHAD LEZAMA 11/23/18 Diphenhydramine Hcl* (Benadryl*) 25 Mg Cap, 25 MG PO Q6 PRN for ITCHING/RASH, #30 TAB Prov:FADY ADAM 11/16/18 Nifedipine (Procardia Xl) 60 Mg Tab.er.24, 60 MG PO BID for 30 Days, #60 TAB 2 Refills Prov:FARHAD LEZAMA 10/30/18 Sertraline Hcl* (Sertraline Hcl*) 25 Mg Tablet, 25 MG PO DAILY for anxiety, #30 TAB Prov:FARHAD LEZAMA. 10/30/18 Hydroxyzine Hcl* (Atarax*) 25 Mg Tab, 50 MG PO Q8H PRN for ITCHING, #30 TAB Prov:FARHAD LEZAMA. 10/30/18 Pantoprazole* (Pantoprazole*) 40 Mg Tablet.dr, 40 MG PO DAILY, #30 TAB 2 Refills Prov:FARHAD LEZAMA. 10/30/18 Reported Medications Temazepam (Restoril) 15 Mg Cap, 15 MG PO QHS PRN for SLEEP for 30 Days 12/21/18 Prednisone* (Prednisone*) 5 Mg Tab, 5 MG PO DAILY, TAB 11/16/18 Mycophenolate Mofetil* (Mycophenolate Mofetil*) 500 Mg Tablet, 1000 MG PO BID, TAB TAKE 2 TABLET BY MOUTH EVERY MORNING AND EVENING 06/30/18 Hydroxychloroquine Sulfate* (Hydroxychloroquine Sulfate*) 200 Mg Tablet, 200 MG PO DAILY, TAB TAKE 1 TAB BY MOUTH EVERY TUESDAY-Tuesday06/30/18 Discontinued Scripts [gentamicin] No Conflict Check, IV for pneumonia pharmacy to dose Prov:FARHDA LEZAMA. 02/01/19 Medications Current Medications IV Flush (NS 3 ml) 3 ml PER PROTOCOL IV ; Start 02/16/19 at 23:30 Ondansetron HCl (Zofran Tab) 4 mg Q6H PRN PO NAUSEA/VOMITING; Start 02/16/19 at 23:30 Nitroglycerin (Nitroglycerin (Sl Tab) 0.4 Mg) 1 tab Q5M PRN SL .CHEST PAIN; Start 02/16/19 at 23:30 Acetaminophen (Tylenol Tab) 650 mg Q6H PRN PO .PAIN 1-3 OR TEMP Last administered on 02/19/19at 16:45; Admin Dose 650 MG; Start 02/16/19 at 23:30 Carvedilol (Coreg) 50 mg Q12 PO Last administered on 02/17/19at 21:55; Admin Dose 50 MG; Start 02/16/19 at 23:30; Status Hold Clonidine (Catapres) 0.1 mg TID PO Last administered on 02/17/19 21:55; Admin Dose 0.1 MG; Start 02/17/19 at 09:00; Status Hold Hydroxychloroquine Sulfate (Plaquenil) 200 mg DAILY PO Last administered on 02/20/19 08:55; Admin Dose 200 MG; Start 02/17/19 at 09:00 Mycophenolate Mofetil (Cellcept) 1,000 mg BID PO Last administered on 02/20/19 21:08; Admin Dose 1,000 MG; Start 02/16/19 at 23:30 Nifedipine (Procardia Xl) 60 mg BID PO Last administered on 02/17/19 21:55; Admin Dose 60 MG; Start 02/16/19 at 23:30 Prednisone (Prednisone) 5 mg DAILY PO Last administered on 02/20/19 08:56; Admin Dose 5 MG; Start 02/17/19 at 09:00 Sertraline HCl (Zoloft) 25 mg DAILY PO Last administered on 02/20/19 08:55; Admin Dose 25 MG; Start 02/17/19 at 09:00 Sevelamer Carbonate (Renvela) 0.8 gm WITH MEALS PO Last administered on 02/20/19 17:31; Admin Dose 0.8 GM; Start 02/17/19 at 08:00 Zolpidem Tartrate (Ambien) 5 mg HS PRN PO INSOMNIA; Start 02/17/19 at 12:30 Heparin Sodium (Porcine) (Heparin (5000 Units/1ml)) 5,000 unit Q8 SC Last administered on 02/18/19 06:06; Admin Dose 5,000 UNIT; Start 02/17/19 at 02:00; Status Hold Labetalol HCl (Labetalol) 10 mg Q4 PRN IV SPB>170; Start 02/17/19 at 05:00 Heparin Sodium (Porcine) (Heparin (1000 Units/ml)) 4,000 unit AFTER DIALYSIS CATHETER ; Start 02/17/19 at 05:30 Albumin Human 100 ml @ 100 mls/hr WITH DIALYSIS PRN IV SBP <90 DURING DIALYSIS Last administered on 02/17/19at 12:27; Admin Dose 100 MLS/HR; Start 02/17/19 at 05:30 Sodium Chloride (NS) -To prime the dialy... DIRECTED FOR HD PRN IV HD; Start 02/17/19 at 05:30 Hydromorphone HCl (Dilaudid) 0.5 mg Q8H PRN IV SEVERE PAIN LEVEL 7-10; Start 02/17/19 at 10:30 Midazolam HCl 50 ml @ 1 mls/hr PER PROTOCOL IV Last administered on 02/20/19 23:18; Admin Dose 2 MLS/HR; Start 02/17/19 at 09:30 Fentanyl 100 ml @ 2.5 mls/hr PER PROTOCOL IV Last administered on 02/20/19 19:54; Admin Dose 3 MLS/HR; Start 02/17/19 at 10:30 Phenylephrine HCl 80 mg/Dextrose 250 ml @ 18.75 mls/ hr TITRATE IV Last administered on 02/21/19 05:56; Admin Dose 18.75 MLS/HR; Start 02/18/19 at 00:30 Piperacillin Sod/ Tazobactam Sod 50 ml @ 200 mls/hr Q8 IVPB Last administered on 02/21/19 05:51; Admin Dose 200 MLS/HR; Start 02/18/19 at 12:00 Aspirin (Aspirin) 81 mg DAILY NGT Last administered on 02/20/19 08:56; Admin Dose 81 MG; Start 02/18/19 at 10:00 Vancomycin HCl (Vanco Iv Per Pharmacy) VANCOMYCIN PER PHARMA... PER PROTOCOL XX ; Start 02/19/19 at 18:30 Lansoprazole (Prevacid) 30 mg DAILY@06 GTB Last administered on 02/21/19 05:51; Admin Dose 30 MG; Start 02/21/19 at 06:00 Assessment/Plan Hospital Course (Demo Recall) Acute hypoxemic hypercapnic respiratory failure status post intubation underwent Congestive heart failure/fluid overload: Acute on chronic secondary to fluid overload and probably diastolic heart failure End-stage renal disease on hemodialysis pneumonia History of lupus History of pericardial effusion Anemia Hypertension Recommendation: Antibiotic management as per internal medicine and pulmonary provider contracting consultant We will continue to monitor on telemetry Ventilatory support will be continued for now. Weaning trial as tolerated Hemodialysis will be continued managed as per renal Coreg to be resumed her blood pressure is elevated . Although has been low /stable now Continue with ICU care Thank you for his referral. We will continue to follow along with you SERGO MUNOZ MD [facility] SERGO MUNOZ MD Feb 21, 2019 07:24
--- NOTE | 2019-02-21 08:18 | CONS ---
Consult Date/Type/Reason Admit Date/Time Feb 17, 2019 at 09:30 Initial Consult Date 02/17/19 Type of Consult Pulmonary Requesting Provider: JAKY ZELAYA MD, [facility] Date/Time of Note DATE: 02/21/19 TIME: 08:17 Subjective Patient stable this morning on mechanical ventilation decreased secretions. Continues low-dose vasopressor support. Objective Vital Signs Date Temp Pulse Resp B/P (MAP) Pulse Ox O2 O2 Flow FiO2 Time Delivery Rate 02/21/19 79 20 100 30 08:07 02/21/19 135/107 Mechanical 07:00 (116) Ventilator 02/21/19 97.8 04:00 02/17/19 2.0 07:45 Intake and Output 02/20/19 02/20/19 02/21/19 1515:00 23:00 07:00 IntakeIntake Total 579.16 ml 609.40 ml 491.89 ml OutputOutput Total 200 ml 2700 ml 0 ml BalanceBalance 379.16 ml -2090.60 ml 491.89 ml Exam PHYSICAL EXAMINATION: GENERAL: Chronically ill appearing lady, orally intubated on mechanical ventilation. VITAL SIGNS: NECK: Supple, no JVD or lymphadenopathy. CARDIAC: S1, S2, no added sounds or murmurs. CHEST: Diminished air entry bilaterally. ABDOMEN: Soft, nontender. No guarding or rebound. EXTREMITIES: No cyanosis, clubbing, 1+ edema. NEUROLOGIC: Generalized weakness. Vent Setting Ventilator Support Mode: AC Fraction of Inspired Oxygen pe: 30 Positive End Expiratory Pressu: 5.0 Results/Medications Result Diagram: 02/21/19 0500 02/20/19 0500 Results 24 hrs Laboratory Tests Test 02/21/19 05:00 White Blood Count 8.2 Red Blood Count 3.31 L Hemoglobin 9.9 L Hematocrit 32.5 L Mean Corpuscular Volume 98.2 Mean Corpuscular Hemoglobin 29.9 Mean Corpuscular Hemoglobin Concent 30.5 L Red Cell Distribution Width 17.1 H Platelet Count 131 #L Mean Platelet Volume 12.8 H Immature Granulocytes % 0.700 H Neutrophils % 74.9 Lymphocytes % 13.7 L Monocytes % 8.6 Eosinophils % 1.6 Basophils % 0.5 Nucleated Red Blood Cells % 3.5 H Immature Granulocytes # 0.060 H Neutrophils # 6.1 Lymphocytes # 1.1 Monocytes # 0.7 Eosinophils # 0.1 Basophils # 0.0 Nucleated Red Blood Cells # 0.3 H Phosphorus Level 1.5 L Magnesium Level 2.4 Total Bilirubin 0.6 Direct Bilirubin 0.00 Indirect Bilirubin 0.6 Aspartate Amino Transf (AST/SGOT) 941 H Alanine Aminotransferase (ALT/SGPT) 2030 H Alkaline Phosphatase 174 H Total Protein 8.6 H Albumin 4.6 Random Vancomycin Level 14.9 Medications Current Medications IV Flush (NS 3 ml) 3 ml PER PROTOCOL IV ; Start 02/16/19 at 23:30 Ondansetron HCl (Zofran Tab) 4 mg Q6H PRN PO NAUSEA/VOMITING; Start 02/16/19 at 23:30 Nitroglycerin (Nitroglycerin (Sl Tab) 0.4 Mg) 1 tab Q5M PRN SL .CHEST PAIN; Start 02/16/19 at 23:30 Acetaminophen (Tylenol Tab) 650 mg Q6H PRN PO .PAIN 1-3 OR TEMP Last administered on 02/19/19 16:45; Admin Dose 650 MG; Start 02/16/19 at 23:30 Carvedilol (Coreg) 50 mg Q12 PO Last administered on 02/17/19 21:55; Admin Dose 50 MG; Start 02/16/19 at 23:30; Status Hold Clonidine (Catapres) 0.1 mg TID PO Last administered on 02/17/19 21:55; Admin Dose 0.1 MG; Start 02/17/19 at 09:00; Status Hold Hydroxychloroquine Sulfate (Plaquenil) 200 mg DAILY PO Last administered on 02/20/19 08:55; Admin Dose 200 MG; Start 02/17/19 at 09:00 Mycophenolate Mofetil (Cellcept) 1,000 mg BID PO Last administered on 02/20/19 21:08; Admin Dose 1,000 MG; Start 02/16/19 at 23:30 Nifedipine (Procardia Xl) 60 mg BID PO Last administered on 02/17/19 21:55; Admin Dose 60 MG; Start 02/16/19 at 23:30 Prednisone (Prednisone) 5 mg DAILY PO Last administered on 02/20/19 08:56; Admin Dose 5 MG; Start 02/17/19 at 09:00 Sertraline HCl (Zoloft) 25 mg DAILY PO Last administered on 02/20/19at 08:55; Admin Dose 25 MG; Start 02/17/19 at 09:00 Sevelamer Carbonate (Renvela) 0.8 gm WITH MEALS PO Last administered on 9at 17:31; Admin Dose 0.8 GM; Start 02/17/19 at 08:00 Zolpidem Tartrate (Ambien) 5 mg HS PRN PO INSOMNIA; Start 02/17/19 at 12:30 Heparin Sodium (Porcine) (Heparin (5000 Units/1ml)) 5,000 unit Q8 SC Last administered on 02/18/19at 06:06; Admin Dose 5,000 UNIT; Start 02/17/19 at 02:00; Status Hold Labetalol HCl (Labetalol) 10 mg Q4 PRN IV SPB>170; Start 02/17/19 at 05:00 Heparin Sodium (Porcine) (Heparin (1000 Units/ml)) 4,000 unit AFTER DIALYSIS CATHETER ; Start 02/17/19 at 05:30 Albumin Human 100 ml @ 100 mls/hr WITH DIALYSIS PRN IV SBP <90 DURING DIALYSIS Last administered on 02/17/19at 12:27; Admin Dose 100 MLS/HR; Start 02/17/19 at 05:30 Sodium Chloride (NS) -To prime the dialy... DIRECTED FOR HD PRN IV HD; Start 02/17/19 at 05:30 Hydromorphone HCl (Dilaudid) 0.5 mg Q8H PRN IV SEVERE PAIN LEVEL 7-10; Start 02/17/19 at 10:30 Midazolam HCl 50 ml @ 1 mls/hr PER PROTOCOL IV Last administered on 02/20/19at 23:18; Admin Dose 2 MLS/HR; Start 02/17/19 at 09:30 Fentanyl 100 ml @ 2.5 mls/hr PER PROTOCOL IV Last administered on 02/20/19at 19:54; Admin Dose 3 MLS/HR; Start 02/17/19 at 10:30 Phenylephrine HCl 80 mg/Dextrose 250 ml @ 18.75 mls/ hr TITRATE IV Last administered on 02/21/19at 05:56; Admin Dose 18.75 MLS/HR; Start 02/18/19 at 00:30 Piperacillin Sod/ Tazobactam Sod 50 ml @ 200 mls/hr Q8 IVPB Last administered on 02/21/19at 05:51; Admin Dose 200 MLS/HR; Start 02/18/19 at 12:00 Aspirin (Aspirin) 81 mg DAILY NGT Last administered on 02/20/19at 08:56; Admin Dose 81 MG; Start 02/18/19 at 10:00 Vancomycin HCl (Vanco Iv Per Pharmacy) VANCOMYCIN PER PHARMA... PER PROTOCOL XX ; Start 02/19/19 at 18:30 Lansoprazole (Prevacid) 30 mg DAILY@06 GTB Last administered on 02/21/19at 05:51; Admin Dose 30 MG; Start 02/21/19 at 06:00 Assessment/Plan Hospital Course (Demo Recall) IMPRESSION AND PLAN: 1. Acute hypoxemic respiratory failure, likely secondary to volume overload. Probable component of aspiration pneumonia also. 2. End-stage renal failure on hemodialysis. 3. Systemic lupus erythematosus with lupus nephritis. 4. Encephalopathy, toxic metabolic secondary to above. 5. Septic shock possible aspiration pneumonitis PLAN: 1. Continue with mechanical ventilation, CPAP trial this morning. 2. Continue hemodialysis for volume removal 3. Adequate sedation and pain control. 4. DVT and GI prophylaxis. 5. Broad-spectrum antibiotic coverage consider de-escalation of antibiotics 6. Titrate vasopressors to keep map greater than 65 Critical care time 40 minutes. JAKY ZELAYA MD, [facility] Feb 21, 2019 08:18
[2019-02-21] MEDS: ASPIRIN 81 MG TAB NGT SCH (08:55)
[2019-02-21] MEDS: MYCOPHENOLATE 250 MG CAP PO SCH ×2 (08:55→21:21)
[2019-02-21] MEDS: HYDROXYCHLOROQUINE 200 MG TAB PO SCH (08:56)
[2019-02-21] MEDS: SERTRALINE 50 MG TAB PO SCH (08:56)
[2019-02-21] MEDS: SEVELAMER CARBONATE 0.8 GM PKT PO SCH ×3 (08:57→17:44)
[2019-02-21] MEDS: predniSONE 5 MG TAB PO SCH (08:57)
[2019-02-21] MEDS: NIFEdipine (XL) 60 MG TAB PO SCH ×2 (08:57→21:00)
--- NOTE | 2019-02-21 09:11 | PN ---
Date/Time of Note Date/Time of Note DATE: 02/21/19 TIME: 09:07 Assessment/Plan VTE Prophylaxis Risk score (from Nsg)>0 risk: 7 SCD applied (from Nsg): Yes Pharmacological prophylaxis: other Lines/Catheters IV Catheter Type (from Nrsg): Central Line Central line still needed: Yes Urinary Cath still in place: No Assessment/Plan Hospital Course S: Patient presently on CPAP trial, still intubated and still on low-dose pressor support. Received dialysis yesterday. O: VS - see below PE: General: lying in bed, intubated HEENT: Atraumatic, normocephalic. Neck: Supple Chest: Nontender Lungs: Slightly decreased breath sounds bilaterally Heart: Normal S1-S2, Regular rhythm and rate. No murmur, S3, or S4 Abdomen: Soft , nontender, nondistended , bowel sounds are present. Extremities: Normal to inspection, no edema no cyanosis. Right femoral line clean/dry/intact. Assessment/Plan: 33 yo woman with history of SLE, lupus nephritis, ESRD on dialysis who presents with chest pain and respiratory distress. #Respiratory distress: Intubated, secondary to possible volume overload and flash pulmonary edema along with possible aspiration pneumonia: As evidenced by sudden onset of respiratory failure, diffuse fluffy infiltrates, pink foam directly from ET tube on 02/17- The patient has had several of these episodes requiring emergent intubation at this hospital. Of note apparently she is compliant with home medications and dialysis. With previous episodes, respiratory status typically improves quickly after dialysis. -Continue vent weaning per pulmonary recommendations -Continue broad-spectrum antibiotics, nebs as needed #septic shock-likely secondary to aspiration pneumonitis/pneumonia. Patient earlier had fever and hypotension requiring pressor - white blood cell count trending down the last 2 days now, no fevers the last 2 days. -Follow-up results of blood cultures ordered, continue pressor support wean down as tolerated -For now continue empiric zosyn q6h, if worsens, consider infectious disease consult #ESRD: Receive dialysis 3 days in a row this admission including yesterday. Normally as an outpatient gets dialysis 4 times a week -Continue dialysis per renal, and Renvela #SLE: - Continue plaquenil, and low-dose p.o. steroids # chronic cachexia and malnutrition: Patient tolerating NG tube feeds, continue as tolerated # chronic anemia: Secondary likely to underlying end-stage renal disease. Hemoglobin presently 9.9 this morning - continue to monitor closely Critical care time spent in patient care today equals 40 minutes. Result Diagram: 02/21/19 0500 02/20/19 0500 Results 24hrs Laboratory Tests Test 02/21/19 05:00 White Blood Count 8.2 Red Blood Count 3.31 L Hemoglobin 9.9 L Hematocrit 32.5 L Mean Corpuscular Volume 98.2 Mean Corpuscular Hemoglobin 29.9 Mean Corpuscular Hemoglobin Concent 30.5 L Red Cell Distribution Width 17.1 H Platelet Count 131 #L Mean Platelet Volume 12.8 H Immature Granulocytes % 0.700 H Neutrophils % 74.9 Lymphocytes % 13.7 L Monocytes % 8.6 Eosinophils % 1.6 Basophils % 0.5 Nucleated Red Blood Cells % 3.5 H Immature Granulocytes # 0.060 H Neutrophils # 6.1 Lymphocytes # 1.1 Monocytes # 0.7 Eosinophils # 0.1 Basophils # 0.0 Nucleated Red Blood Cells # 0.3 H Phosphorus Level 1.5 L Magnesium Level 2.4 Total Bilirubin 0.6 Direct Bilirubin 0.00 Indirect Bilirubin 0.6 Aspartate Amino Transf (AST/SGOT) 941 H Alanine Aminotransferase (ALT/SGPT) 2030 H Alkaline Phosphatase 174 H Total Protein 8.6 H Albumin 4.6 Random Vancomycin Level 14.9 Exam/Review of Systems Exam Vitals Vital Signs Date Temp Pulse Resp B/P (MAP) Pulse Ox O2 O2 Flow FiO2 Time Delivery Rate 02/21/19 79 20 100 30 08:07 02/21/19 135/107 Mechanical 07:00 (116) Ventilator 02/21/19 97.8 04:00 02/17/19 2.0 07:45 Intake and Output 02/20/19 02/20/19 02/21/19 1515:00 23:00 07:00 IntakeIntake Total 579.16 ml 609.40 ml 491.89 ml OutputOutput Total 200 ml 2700 ml 0 ml BalanceBalance 379.16 ml -2090.60 ml 491.89 ml Results Results 24hrs Laboratory Tests Test 02/21/19 05:00 White Blood Count 8.2 Red Blood Count 3.31 L Hemoglobin 9.9 L Hematocrit 32.5 L Mean Corpuscular Volume 98.2 Mean Corpuscular Hemoglobin 29.9 Mean Corpuscular Hemoglobin Concent 30.5 L Red Cell Distribution Width 17.1 H Platelet Count 131 #L Mean Platelet Volume 12.8 H Immature Granulocytes % 0.700 H Neutrophils % 74.9 Lymphocytes % 13.7 L Monocytes % 8.6 Eosinophils % 1.6 Basophils % 0.5 Nucleated Red Blood Cells % 3.5 H Immature Granulocytes # 0.060 H Neutrophils # 6.1 Lymphocytes # 1.1 Monocytes # 0.7 Eosinophils # 0.1 Basophils # 0.0 Nucleated Red Blood Cells # 0.3 H Phosphorus Level 1.5 L Magnesium Level 2.4 Total Bilirubin 0.6 Direct Bilirubin 0.00 Indirect Bilirubin 0.6 Aspartate Amino Transf (AST/SGOT) 941 H Alanine Aminotransferase (ALT/SGPT) 2030 H Alkaline Phosphatase 174 H Total Protein 8.6 H Albumin 4.6 Random Vancomycin Level 14.9 Medications Medication Current Medications IV Flush (NS 3 ml) 3 ml PER PROTOCOL IV ; Start 02/16/19 at 23:30 Ondansetron HCl (Zofran Tab) 4 mg Q6H PRN PO NAUSEA/VOMITING; Start 02/16/19 at 23:30 Nitroglycerin (Nitroglycerin (Sl Tab) 0.4 Mg) 1 tab Q5M PRN SL .CHEST PAIN; Start 02/16/19 at 23:30 Acetaminophen (Tylenol Tab) 650 mg Q6H PRN PO .PAIN 1-3 OR TEMP Last administered on 02/19/19 16:45; Admin Dose 650 MG; Start 02/16/19 at 23:30 Carvedilol (Coreg) 50 mg Q12 PO Last administered on 02/17/19 21:55; Admin Dose 50 MG; Start 02/16/19 at 23:30; Status Hold Clonidine (Catapres) 0.1 mg TID PO Last administered on 02/17/19 21:55; Admin Dose 0.1 MG; Start 02/17/19 at 09:00; Status Hold Hydroxychloroquine Sulfate (Plaquenil) 200 mg DAILY PO Last administered on 02/21/19 08:56; Admin Dose 200 MG; Start 02/17/19 at 09:00 Mycophenolate Mofetil (Cellcept) 1,000 mg BID PO Last administered on 02/21/19 08:55; Admin Dose 1,000 MG; Start 02/16/19 at 23:30 Nifedipine (Procardia Xl) 60 mg BID PO Last administered on 02/17/19 21:55; Admin Dose 60 MG; Start 02/16/19 at 23:30 Prednisone (Prednisone) 5 mg DAILY PO Last administered on 02/21/19 08:57; Admin Dose 5 MG; Start 02/17/19 at 09:00 Sertraline HCl (Zoloft) 25 mg DAILY PO Last administered on 02/21/19 08:56; Admin Dose 25 MG; Start 02/17/19 at 09:00 Sevelamer Carbonate (Renvela) 0.8 gm WITH MEALS PO Last administered on 02/21/19 08:57; Admin Dose 0.8 GM; Start 02/17/19 at 08:00 Zolpidem Tartrate (Ambien) 5 mg HS PRN PO INSOMNIA; Start 02/17/19 at 12:30 Heparin Sodium (Porcine) (Heparin (5000 Units/1ml)) 5,000 unit Q8 SC Last administered on 02/18/19at 06:06; Admin Dose 5,000 UNIT; Start 02/17/19 at 02:00; Status Hold Labetalol HCl (Labetalol) 10 mg Q4 PRN IV SPB>170; Start 02/17/19 at 05:00 Heparin Sodium (Porcine) (Heparin (1000 Units/ml)) 4,000 unit AFTER DIALYSIS CATHETER ; Start 02/17/19 at 05:30 Albumin Human 100 ml @ 100 mls/hr WITH DIALYSIS PRN IV SBP <90 DURING DIALYSIS Last administered on 02/17/19at 12:27; Admin Dose 100 MLS/HR; Start 02/17/19 at 05:30 Sodium Chloride (NS) -To prime the dialy... DIRECTED FOR HD PRN IV HD; Start 02/17/19 at 05:30 Hydromorphone HCl (Dilaudid) 0.5 mg Q8H PRN IV SEVERE PAIN LEVEL 7-10; Start 02/17/19 at 10:30 Midazolam HCl 50 ml @ 1 mls/hr PER PROTOCOL IV Last administered on 02/20/19at 23:18; Admin Dose 2 MLS/HR; Start 02/17/19 at 09:30 Fentanyl 100 ml @ 2.5 mls/hr PER PROTOCOL IV Last administered on 02/20/19 19:54; Admin Dose 3 MLS/HR; Start 02/17/19 at 10:30 Phenylephrine HCl 80 mg/Dextrose 250 ml @ 18.75 mls/ hr TITRATE IV Last administered on 02/21/19 05:56; Admin Dose 18.75 MLS/HR; Start 02/18/19 at 00:30 Piperacillin Sod/ Tazobactam Sod 50 ml @ 200 mls/hr Q8 IVPB Last administered on 02/21/19 05:51; Admin Dose 200 MLS/HR; Start 02/18/19 at 12:00 Aspirin (Aspirin) 81 mg DAILY NGT Last administered on 02/21/19 08:55; Admin Dose 81 MG; Start 02/18/19 at 10:00 Vancomycin HCl (Vanco Iv Per Pharmacy) VANCOMYCIN PER PHARMA... PER PROTOCOL XX ; Start 02/19/19 at 18:30 Lansoprazole (Prevacid) 30 mg DAILY@06 GTB Last administered on 02/21/19 05:51; Admin Dose 30 MG; Start 02/21/19 at 06:00 CONSTANCE THOMPSON Feb 21, 2019 09:11
--- NOTE | 2019-02-21 11:54 | CONS ---
Assessment/Plan Assessment/Plan Assessment/Plan (Daily) 1. acute hypoxic respiratory distress due to acute pulmonary edema 2. ESRD on HD 4 times a week at [facility] schedule 3. Acute chest pain 4. Hyperkalemia 5. h/o Lupus 6. h/o HTN 7. H/o HL 8. H/o seizure disorder Plan: s/p HD yesterday 2.3 L removed- Possible plan for extubation today, pt doing well on CPAP trial, will order HD tomorrow for 3.5 hr wiht goal UF more than 3 kg to keep her on Dry side pt follows at [facility] unit and she gets HD 4 times a week on Tuesday, Tuesday, and Tuesday will follow up Consultation Date/Type/Reason Admit Date/Time Feb 17, 2019 at 09:30 Initial Consult Date 02/17/19 Type of Consult NEPHROLOGY Requesting Provider: JAKY ZELAYA MD, [facility] Date/Time of Note DATE: 02/21/19 TIME: 11:54 24 HR Interval Summary Free Text/Dictation pt doing well on CPAP trial, possible extubation today, alert awake no chest pain Exam/Review of Systems Exam Vitals Vital Signs Date Temp Pulse Resp B/P (MAP) Pulse Ox O2 O2 Flow FiO2 Time Delivery Rate 02/21/19 96 19 131/90 100 11:30 (104) 02/21/19 Mechanical 11:00 Ventilator 02/21/19 30 09:06 02/21/19 99.0 09:00 02/17/19 2.0 07:45 Intake and Output 02/20/19 02/20/19 02/21/19 1515:00 23:00 07:00 IntakeIntake Total 579.16 ml 609.40 ml 491.89 ml OutputOutput Total 200 ml 2700 ml 0 ml BalanceBalance 379.16 ml -2090.60 ml 491.89 ml Exam GENERAL: Intubated on ventilator NECK: Supple, no JVD or lymphadenopathy. CARDIAC: S1, S2, no added sounds or murmurs. CHEST: Diminished air entry bilaterally. ABDOMEN: Soft, nontender. No guarding or rebound. EXTREMITIES: No cyanosis, clubbing, 1+ edema. NEUROLOGIC: Generalized weakness. Results Result Diagram: 02/21/19 0500 02/20/19 0500 Results 24hrs Laboratory Tests Test 02/21/19 05:00 02/21/19 11:00 White Blood Count 8.2 Red Blood Count 3.31 L Hemoglobin 9.9 L Hematocrit 32.5 L Mean Corpuscular Volume 98.2 Mean Corpuscular Hemoglobin 29.9 Mean Corpuscular Hemoglobin Concent 30.5 L Red Cell Distribution Width 17.1 H Platelet Count 131 #L Mean Platelet Volume 12.8 H Immature Granulocytes % 0.700 H Neutrophils % 74.9 Lymphocytes % 13.7 L Monocytes % 8.6 Eosinophils % 1.6 Basophils % 0.5 Nucleated Red Blood Cells % 3.5 H Immature Granulocytes # 0.060 H Neutrophils # 6.1 Lymphocytes # 1.1 Monocytes # 0.7 Eosinophils # 0.1 Basophils # 0.0 Nucleated Red Blood Cells # 0.3 H Phosphorus Level 1.5 L Magnesium Level 2.4 Total Bilirubin 0.6 Direct Bilirubin 0.00 Indirect Bilirubin 0.6 Aspartate Amino Transf (AST/SGOT) 941 H Alanine Aminotransferase (ALT/SGPT) 2030 H Alkaline Phosphatase 174 H Total Protein 8.6 H Albumin 4.6 Random Vancomycin Level 14.9 Blood Gas Specimen Source Blood arterial Arterial Blood Date Drawn 02/21/2019 11:35:25 AM Arterial Blood pH (Temp corrected) 7.393 Arterial Blood pCO2 (Temp correct) 56.3 H Arterial Blood pO2 (Temp corrected) 133.8 H Arterial Blood HCO3 33.5 H Arterial Blood Base Excess 7.3 H Arterial Blood Oxygen Saturation 98.3 H Ck Test N/A Arterial Blood Gas Puncture Site Right Brachial Arterial Blood Carboxyhemoglobin 0.3 Arterial Blood Methemoglobin 0.1 Blood Gas A-a O2 Differential 14.0 Oxyhemoglobin Percent 97.9 Blood Gas Temperature 37.0 Blood Gas Actual Respiration Rate 22 Blood Gas Modality VENT - AC FiO2 30.0 Blood Gas Low PEEP Setting 5.0 Blood Gas Pressure Support 10 Blood Gas Notified Whom TM Blood Gas Notified Time 02/21/2019 11:46:10 AM Medications Medication Current Medications IV Flush (NS 3 ml) 3 ml PER PROTOCOL IV ; Start 02/16/19 at 23:30 Ondansetron HCl (Zofran Tab) 4 mg Q6H PRN PO NAUSEA/VOMITING; Start 02/16/19 at 23:30 Nitroglycerin (Nitroglycerin (Sl Tab) 0.4 Mg) 1 tab Q5M PRN SL .CHEST PAIN; Start 02/16/19 at 23:30 Acetaminophen (Tylenol Tab) 650 mg Q6H PRN PO .PAIN 1-3 OR TEMP Last administered on 02/19/19 16:45; Admin Dose 650 MG; Start 02/16/19 at 23:30 Carvedilol (Coreg) 50 mg Q12 PO Last administered on 02/17/19 21:55; Admin Dose 50 MG; Start 02/16/19 at 23:30; Status Hold Clonidine (Catapres) 0.1 mg TID PO Last administered on 02/17/19 21:55; Admin Dose 0.1 MG; Start 02/17/19 at 09:00; Status Hold Hydroxychloroquine Sulfate (Plaquenil) 200 mg DAILY PO Last administered on 02/21/19 08:56; Admin Dose 200 MG; Start 02/17/19 at 09:00 Mycophenolate Mofetil (Cellcept) 1,000 mg BID PO Last administered on 02/21/19 08:55; Admin Dose 1,000 MG; Start 02/16/19 at 23:30 Nifedipine (Procardia Xl) 60 mg BID PO Last administered on 02/17/19 21:55; Admin Dose 60 MG; Start 02/16/19 at 23:30 Prednisone (Prednisone) 5 mg DAILY PO Last administered on 02/21/19 08:57; Admin Dose 5 MG; Start 02/17/19 at 09:00 Sertraline HCl (Zoloft) 25 mg DAILY PO Last administered on 02/21/19 08:56; Admin Dose 25 MG; Start 02/17/19 at 09:00 Sevelamer Carbonate (Renvela) 0.8 gm WITH MEALS PO Last administered on 02/21/19 08:57; Admin Dose 0.8 GM; Start 02/17/19 at 08:00 Zolpidem Tartrate (Ambien) 5 mg HS PRN PO INSOMNIA; Start 02/17/19 at 12:30 Heparin Sodium (Porcine) (Heparin (5000 Units/1ml)) 5,000 unit Q8 SC Last admi nistered on 02/18/19 06:06; Admin Dose 5,000 UNIT; Start 02/17/19 at 02:00; Status Hold Labetalol HCl (Labetalol) 10 mg Q4 PRN IV SPB>170; Start 02/17/19 at 05:00 Heparin Sodium (Porcine) (Heparin (1000 Units/ml)) 4,000 unit AFTER DIALYSIS CATHETER ; Start 02/17/19 at 05:30 Albumin Human 100 ml @ 100 mls/hr WITH DIALYSIS PRN IV SBP <90 DURING DIALYSIS Last administered on 02/17/19at 12:27; Admin Dose 100 MLS/HR; Start 02/17/19 at 05:30 Sodium Chloride (NS) -To prime the dialy... DIRECTED FOR HD PRN IV HD; Start 02/17/19 at 05:30 Hydromorphone HCl (Dilaudid) 0.5 mg Q8H PRN IV SEVERE PAIN LEVEL 7-10; Start 02/17/19 at 10:30 Midazolam HCl 50 ml @ 1 mls/hr PER PROTOCOL IV Last administered on 02/20/19at 23:18; Admin Dose 2 MLS/HR; Start 02/17/19 at 09:30 Fentanyl 100 ml @ 2.5 mls/hr PER PROTOCOL IV Last administered on 02/20/19at 19:54; Admin Dose 3 MLS/HR; Start 02/17/19 at 10:30 Phenylephrine HCl 80 mg/Dextrose 250 ml @ 18.75 mls/ hr TITRATE IV Last administered on 02/21/19at 05:56; Admin Dose 18.75 MLS/HR; Start 02/18/19 at 00:30 Piperacillin Sod/ Tazobactam Sod 50 ml @ 200 mls/hr Q8 IVPB Last administered on 02/21/19at 05:51; Admin Dose 200 MLS/HR; Start 02/18/19 at 12:00 Aspirin (Aspirin) 81 mg DAILY NGT Last administered on 02/21/19at 08:55; Admin Dose 81 MG; Start 02/18/19 at 10:00 Vancomycin HCl (Vanco Iv Per Pharmacy) VANCOMYCIN PER PHARMA... PER PROTOCOL XX ; Start 02/19/19 at 18:30 Lansoprazole (Prevacid) 30 mg DAILY@06 GTB Last administered on 02/21/19at 0 5:51; Admin Dose 30 MG; Start 02/21/19 at 06:00 Vancomycin/Sodium Chloride 250 ml @ 125 mls/hr 2100 IVPB ; Start 02/21/19 at 21:00; Stop 02/22/19 at 05:59 ARTURO AMADOR MD Feb 21, 2019 11:54
[2019-02-21] MEDS: ACETAMINOPHEN 325 MG TAB PO PRN (17:44)
[2019-02-21] MEDS: HYDROmorphONE 0.5 MG/0.5 ML SYG IV PRN (19:32)
[2019-02-21] MEDS ORDERED: VANCOMYCIN 750 MG (PMX) 250 ML IVPB SCH (21:00)
[2019-02-22] VITALS (51 sets, daily range): BP systolic 94–166; BP diastolic 46–143; PULSE 66–99; RESP 12–23
[2019-02-22] MEDS: ZOLPIDEM 5 MG TAB PO PRN (00:43)
[2019-02-22] MEDS: HYDROmorphONE 0.5 MG/0.5 ML SYG IV PRN ×4 (03:51→22:06)
[2019-02-22] MEDS: PIPER-TAZO 2.25 GM (PMX) 50 ML IVPB SCH (05:31)
[2019-02-22] MEDS: LANSOPRAZOLE 30 MG CAP GTB SCH (05:31)
--- NOTE | 2019-02-22 07:23 | CONS ---
Consult Date/Type/Reason Admit Date/Time Feb 17, 2019 at 09:30 Initial Consult Date 02/20/19 Type of Consultation: cv Requesting Provider: JAKY ZELAYA MD, [facility] Date/Time of Note DATE: 02/22/19 TIME: 07:20 Subjective Interventional cardiology follow-up progress Subjective: Case discussed with the staff and telemetry was reviewed. Patient WAS extubated 02/20 Patient is nonverbal and intubated on the vent BP is stable/ high now Objective: General: Thin young lady HEENT: NC/AT. pupils are equal. round. NECK: NO JVD. no stridor. CV: RRR. systolic murmur; no gallop or rubs. PULM: no wheezing or rhonchi. GI: SOFT, NT, ND, no rebound or guarding Extremity: trace B/L LE edema. no clubbing. neuro: awake and responds appropriately Psych: calm and pleasant rectal: deferred EKG done February 16 shows sinus tachycardia with differential enlargement Chest x-ray on 02/16/2019 shows:Cardiomegaly with pulmonary vascular congestion. Chest x-ray done 02/20/2019 showed: Mild retrocardiac infiltrate. Objective Vitals Vital Signs Date Temp Pulse Resp B/P (MAP) Pulse Ox O2 O2 Flow FiO2 Time Delivery Rate 02/22/19 94 17 152/96 97 06:30 (114) 02/22/19 Nasal 2.0 06:00 Cannula 02/22/19 27 05:53 02/22/19 98.3 04:00 Intake and Output 02/21/19 02/21/19 02/22/19 1515:00 23:00 07:00 IntakeIntake Total 260.75 ml 640 ml 325 ml OutputOutput Total 0 ml 0 ml 0 ml BalanceBalance 260.75 ml 640 ml 325 ml Results/Medications Result Diagram: 02/22/19 0346 02/20/19 0500 Results 24 hrs Laboratory Tests Test 02/21/19 11:00 02/22/19 03:46 Blood Gas Specimen Source Blood arterial Arterial Blood Date Drawn 02/21/2019 11:35:25 AM Arterial Blood pH (Temp corrected) 7.393 Arterial Blood pCO2 (Temp correct) 56.3 H Arterial Blood pO2 (Temp corrected) 133.8 H Arterial Blood HCO3 33.5 H Arterial Blood Base Excess 7.3 H Arterial Blood Oxygen Saturation 98.3 H Ck Test N/A Arterial Blood Gas Puncture Site Right Brachial Arterial Blood Carboxyhemoglobin 0.3 Arterial Blood Methemoglobin 0.1 Blood Gas A-a O2 Differential 14.0 Oxyhemoglobin Percent 97.9 Blood Gas Temperature 37.0 Blood Gas Actual Respiration Rate 22 Blood Gas Modality VENT - AC FiO2 30.0 Blood Gas Low PEEP Setting 5.0 Blood Gas Pressure Support 10 Blood Gas Notified Whom TM Blood Gas Notified Time 02/21/2019 11:46:10 AM White Blood Count 9.3 Red Blood Count 2.74 L Hemoglobin 8.4 L Hematocrit 28.4 L Mean Corpuscular Volume 103.6 H Mean Corpuscular Hemoglobin 30.7 Mean Corpuscular Hemoglobin Concent 29.6 L Red Cell Distribution Width 16.9 H Platelet Count 112 L Mean Platelet Volume 13.5 H Immature Granulocytes % 1.300 H Neutrophils % 64.1 Lymphocytes % 18.2 Monocytes % 14.0 H Eosinophils % 2.1 Basophils % 0.3 Nucleated Red Blood Cells % 0.5 H Immature Granulocytes # 0.120 H Neutrophils # 6.0 Lymphocytes # 1.7 Monocytes # 1.3 H Eosinophils # 0.2 Basophils # 0.0 Nucleated Red Blood Cells # 0.1 H Total Bilirubin 0.1 L Direct Bilirubin 0.00 Indirect Bilirubin 0.1 Aspartate Amino Transf (AST/SGOT) 298 H Alanine Aminotransferase (ALT/SGPT) 1256 H Alkaline Phosphatase 128 H Total Protein 7.3 # Albumin 4.1 Home Meds Active Scripts Gentamicin-NS (Gentamicin-NS) 60 Mg/50 Ml Iv.soln., 50 MG IVPB AFTER DIALYSIS, #4 DOSE Prov:FARHAD LEZAMA 02/01/19 Sevelamer Carbonate* (Renvela*) 800 Mg Tablet, 800 MG PO WITH MEALS, #90 TAB 2 Refills Prov:FARHAD LEZAMA 02/01/19 Aspirin* (Aspirin* (EC)) 81 Mg Tablet., 81 MG PO DAILY, #30 TAB 2 Refills otc Prov:LI GIL MD 01/15/19 Clonidine Hcl* (Catapres*) 0.1 Mg Tablet, 0.1 MG PO TID, #90 TAB Prov:VALERIA PETER NP 12/14/18 Carvedilol* (Carvedilol*) 25 Mg Tablet, 50 MG PO Q12, #60 TAB Prov:FARHAD LEZAMA. 11/23/18 Diphenhydramine Hcl* (Benadryl*) 25 Mg Cap, 25 MG PO Q6 PRN for ITCHING/RASH, #30 TAB Prov:FADY ADAM 11/16/18 Nifedipine (Procardia Xl) 60 Mg Tab.er.24, 60 MG PO BID for 30 Days, #60 TAB 2 Refills Prov:FARHAD LEZAMA. 10/30/18 Sertraline Hcl* (Sertraline Hcl*) 25 Mg Tablet, 25 MG PO DAILY for anxiety, #30 TAB Prov:FARHAD LEZAMA . 10/30/18 Hydroxyzine Hcl* (Atarax*) 25 Mg Tab, 50 MG PO Q8H PRN for ITCHING, #30 TAB Prov:FARHAD LEZAMA . 10/30/18 Pantoprazole* (Pantoprazole*) 40 Mg Tablet.dr, 40 MG PO DAILY, #30 TAB 2 Refills Prov:FARHAD LEZAMA. 10/30/18 Reported Medications Temazepam (Restoril) 15 Mg Cap, 15 MG PO QHS PRN for SLEEP for 30 Days 12/21/18 Prednisone* (Prednisone*) 5 Mg Tab, 5 MG PO DAILY, TAB 11/16/18 Mycophenolate Mofetil* (Mycophenolate Mofetil*) 500 Mg Tablet, 1000 MG PO BID, TAB TAKE 2 TABLET BY MOUTH EVERY MORNING AND EVENING 06/30/18 Hydroxychloroquine Sulfate* (Hydroxychloroquine Sulfate*) 200 Mg Tablet, 200 MG PO DAILY, TAB TAKE 1 TAB BY MOUTH EVERY TUESDAY-Tuesday06/30/18 Discontinued Scripts [gentamicin] No Conflict Check, IV for pneumonia pharmacy to dose Prov:FARHAD LEZAMAFabrizio 02/01/19 Medications Current Medications IV Flush (NS 3 ml) 3 ml PER PROTOCOL IV ; Start 02/16/19 at 23:30 Ondansetron HCl (Zofran Tab) 4 mg Q6H PRN PO NAUSEA/VOMITING; Start 02/16/19 at 23:30 Nitroglycerin (Nitroglycerin (Sl Tab) 0.4 Mg) 1 tab Q5M PRN SL .CHEST PAIN; Start 02/16/19 at 23:30 Acetaminophen (Tylenol Tab) 650 mg Q6H PRN PO .PAIN 1-3 OR TEMP Last a dministered on 02/21/19 17:44; Admin Dose 650 MG; Start 02/16/19 at 23:30 Carvedilol (Coreg) 50 mg Q12 PO Last administered on 02/17/19 21:55; Admin Dose 50 MG; Start 02/16/19 at 23:30; Status Hold Clonidine (Catapres) 0.1 mg TID PO Last administered on 02/17/19 21:55; Admin Dose 0.1 MG; Start 02/17/19 at 09:00; Status Hold Hydroxychloroquine Sulfate (Plaquenil) 200 mg DAILY PO Last administered on 02/21/19 08:56; Admin Dose 200 MG; Start 02/17/19 at 09:00 Mycophenolate Mofetil (Cellcept) 1,000 mg BID PO Last administered on 02/21/19 21:21; Admin Dose 1,000 MG; Start 02/16/19 at 23:30 Nifedipine (Procardia Xl) 60 mg BID PO Last administered on 02/17/19 21:55; Admin Dose 60 MG; Start 02/16/19 at 23:30 Prednisone (Prednisone) 5 mg DAILY PO Last administered on 02/21/19 08:57; Admin Dose 5 MG; Start 02/17/19 at 09:00 Sertraline HCl (Zoloft) 25 mg DAILY PO Last administered on 02/21/19 08:56; Admin Dose 25 MG; Start 02/17/19 at 09:00 Sevelamer Carbonate (Renvela) 0.8 gm WITH MEALS PO Last administered on 02/21/19 17:44; Admin Dose 0.8 GM; Start 02/17/19 at 08:00 Zolpidem Tartrate (Ambien) 5 mg HS PRN PO INSOMNIA Last administered on 02/22/19 00:43; Admin Dose 5 MG; Start 02/17/19 at 12:30 Heparin Sodium (Porcine) (Heparin (5000 Units/1ml)) 5,000 unit Q8 SC Last administered on 02/18/19 06:06; Admin Dose 5,000 UNIT; Start 02/17/19 at 02:00; Status Hold Labetalol HCl (Labetalol) 10 mg Q4 PRN IV SPB>170; Start 02/17/19 at 05:00 Heparin Sodium (Porcine) (Heparin (1000 Units/ml)) 4,000 unit AFTER DIALYSIS CATHETER ; Start 02/17/19 at 05:30 Albumin Human 100 ml @ 100 mls/hr WITH DIALYSIS PRN IV SBP <90 DURING DIALYSIS Last administered on 02/17/19 12:27; Admin Dose 100 MLS/HR; Start 02/17/19 at 05:30 Sodium Chloride (NS) -To prime the dialy... DIRECTED FOR HD PRN IV HD; Start 02/17/19 at 05:30 Hydromorphone HCl (Dilaudid) 0.5 mg Q8H PRN IV SEVERE PAIN LEVEL 7-10 Last administered on 02/22/19 03:51; Admin Dose 0.5 MG; Start 02/17/19 at 10:30 Midazolam HCl 50 ml @ 1 mls/hr PER PROTOCOL IV Last administered on 02/20/19 23:18; Admin Dose 2 MLS/HR; Start 02/17/19 at 09:30 Fentanyl 100 ml @ 2.5 mls/hr PER PROTOCOL IV Last administered on 02/20/19 19:54; Admin Dose 3 MLS/HR; Start 02/17/19 at 10:30 Phenylephrine HCl 80 mg/Dextrose 250 ml @ 18.75 mls/ hr TITRATE IV Last administered on 02/21/19 05:56; Admin Dose 18.75 MLS/HR; Start 02/18/19 at 00:30 Piperacillin Sod/ Tazobactam Sod 50 ml @ 200 mls/hr Q8 IVPB Last administered on 02/22/19 05:31; Admin Dose 200 MLS/HR; Start 02/18/19 at 12:00 Aspirin (Aspirin) 81 mg DAILY NGT Last administered on 02/21/19 08:55; Admin Dose 81 MG; Start 02/18/19 at 10:00 Vancomycin HCl (Vanco Iv Per Pharmacy) VANCOMYCIN PER PHARMA... PER PROTOCOL XX ; Start 02/19/19 at 18:30 Lansoprazole (Prevacid) 30 mg DAILY@06 GTB Last administered on 02/22/19 05:31; Admin Dose 30 MG; Start 02/21/19 at 06:00 Assessment/Plan Hospital Course (Demo Recall) Acute hypoxemic hypercapnic respiratory failure status post intubation underwent Congestive heart failure/fluid overload: Acute on chronic secondary to fluid overload and probably diastolic heart failure End-stage renal disease on hemodialysis pneumonia History of lupus History of pericardial effusion Anemia Hypertension Recommendation: Antibiotic management as per internal medicine and pulmonary partner management consultant We will continue to monitor on telemetry O2 SUPPLEMENT Hemodialysis will be continued managed as per renal Coreg to be resumed her blood pressure is elevated . Although has been low /stable now Thank you for his referral. We will continue to follow along with you SERGO MUNOZ MD [facility] SERGO MUNOZ MD Feb 22, 2019 07:23
[2019-02-22] MEDS: SEVELAMER CARBONATE 0.8 GM PKT PO SCH ×3 (07:35→16:37)
[2019-02-22] MEDS: ONDANSETRON 4 MG TAB PO PRN ×3 (09:02→22:06)
[2019-02-22] MEDS: ALBUMIN HUMAN 25% 100 ML IV PRN (09:17)
--- NOTE | 2019-02-22 09:36 | PN ---
Date/Time of Note Date/Time of Note DATE: 02/22/19 TIME: 09:33 Assessment/Plan VTE Prophylaxis Risk score (from Nsg)>0 risk: 6 SCD applied (from Nsg): Yes Pharmacological prophylaxis: other Lines/Catheters IV Catheter Type (from Nrsg): Central Line Central line still needed: Yes Urinary Cath still in place: No Assessment/Plan Hospital Course S: Patient extubated yesterday, presently getting dialysis now, along with albumin. Family meeting held yesterday at the bedside as well. O: VS - see below PE: General: lying in bed, getting dialysis, opens eyes HEENT: Atraumatic, normocephalic. Neck: Supple Chest: Nontender Lungs: Slightly decreased breath sounds bilaterally Heart: Normal S1-S2, Regular rhythm and rate. No murmur, S3, or S4 Abdomen: Soft , nontender, nondistended , bowel sounds are present. Extremities: Normal to inspection, no edema no cyanosis. Right femoral line clean/dry/intact. Assessment/Plan: 33 yo woman with history of SLE, lupus nephritis, ESRD on dialysis who presents with chest pain and respiratory distress. #Respiratory distress:secondary to possible volume overload and flash pulmonary edema along with possible aspiration pneumonia: As evidenced by sudden onset of respiratory failure, diffuse fluffy infiltrates, pink foam directly from ET tube on 02/17- The patient has had several of these episodes requiring emergent intubation at this hospital. Patient on this admission initially was intubated, and again was extubated yesterday. Of note she is compliant with home medications and dialysis. With previous episodes, respiratory status typically improves quickly after dialysis. -Continue vent weaning per pulmonary recommendations -Continue broad-spectrum antibiotics, nebs as needed #septic shock-likely secondary to aspiration pneumonitis/pneumonia. Patient earlier had fever and hypotension requiring pressor -white blood count stable for the last 3 days -Follow-up results of blood cultures ordered, continue pressor support wean down as tolerated -For now continue empiric zosyn #ESRD: Receive dialysis 3 days in a row this admission including 2 days ago, now getting another session today- normally as an outpatient gets dialysis 4 times a week -Continue dialysis per renal, and Renvela #SLE: - Continue plaquenil, and low-dose p.o. steroids # chronic cachexia and malnutrition: Patient tolerating NG tube feeds, continue as tolerated # chronic anemia: Secondary likely to underlying end-stage renal disease. Hemoglobin stable - continue to monitor closely Critical care time spent in patient care today equals 40 minutes. Result Diagram: 02/22/19 0346 02/22/19 0346 Results 24hrs Laboratory Tests Test 02/21/19 11:00 02/22/19 03:46 Blood Gas Specimen Source Blood arterial Arterial Blood Date Drawn 02/21/2019 11:35:25 AM Arterial Blood pH (Temp corrected) 7.393 Arterial Blood pCO2 (Temp correct) 56.3 H Arterial Blood pO2 (Temp corrected) 133.8 H Arterial Blood HCO3 33.5 H Arterial Blood Base Excess 7.3 H Arterial Blood Oxygen Saturation 98.3 H Ck Test N/A Arterial Blood Gas Puncture Site Right Brachial Arterial Blood Carboxyhemoglobin 0.3 Arterial Blood Methemoglobin 0.1 Blood Gas A-a O2 Differential 14.0 Oxyhemoglobin Percent 97.9 Blood Gas Temperature 37.0 Blood Gas Actual Respiration Rate 22 Blood Gas Modality VENT - AC FiO2 30.0 Blood Gas Low PEEP Setting 5.0 Blood Gas Pressure Support 10 Blood Gas Notified Whom TM Blood Gas Notified Time 02/21/2019 11:46:10 AM White Blood Count 9.3 Red Blood Count 2.74 L Hemoglobin 8.4 L Hematocrit 28.4 L Mean Corpuscular Volume 103.6 H Mean Corpuscular Hemoglobin 30.7 Mean Corpuscular Hemoglobin Concent 29.6 L Red Cell Distribution Width 16.9 H Platelet Count 112 L Mean Platelet Volume 13.5 H Immature Granulocytes % 1.300 H Neutrophils % 64.1 Lymphocytes % 18.2 Monocytes % 14.0 H Eosinophils % 2.1 Basophils % 0.3 Nucleated Red Blood Cells % 0.5 H Immature Granulocytes # 0.120 H Neutrophils # 6.0 Lymphocytes # 1.7 Monocytes # 1.3 H Eosinophils # 0.2 Basophils # 0.0 Nucleated Red Blood Cells # 0.1 H Sodium Level 144 Potassium Level 4.3 Chloride Level 97 Carbon Dioxide Level 28 Anion Gap 19 H Blood Urea Nitrogen 74 #H Creatinine 5.97 #H Est Glomerular Filtrat Rate mL/min 8 L Glucose Level 94 Calcium Level 9.6 Total Bilirubin 0.0 L Direct Bilirubin 0.00 Indirect Bilirubin 0.0 Aspartate Amino Transf (AST/SGOT) 296 H Alanine Aminotransferase (ALT/SGPT) 1244 H Alkaline Phosphatase 142 H Total Protein 8.4 H Albumin 4.2 Globulin 4.20 H Albumin/Globulin Ratio 1.00 Exam/Review of Systems Exam Vitals Vital Signs Date Temp Pulse Resp B/P (MAP) Pulse Ox O2 O2 Flow FiO2 Time Delivery Rate 02/22/19 91 09:05 02/22/19 20 99/72 (81) 100 Nasal 09:00 Cannula 02/22/19 97.0 08:00 02/22/19 2.0 08:00 02/22/19 27 05:53 Intake and Output 02/21/19 02/21/19 02/22/19 1515:00 23:00 07:00 IntakeIntake Total 260.75 ml 640 ml 360 ml OutputOutput Total 0 ml 0 ml 200 ml BalanceBalance 260.75 ml 640 ml 160 ml Results Results 24hrs Laboratory Tests Test 02/21/19 11:00 02/22/19 03:46 Blood Gas Specimen Source Blood arterial Arterial Blood Date Drawn 02/21/2019 11:35:25 AM Arterial Blood pH (Temp corrected) 7.393 Arterial Blood pCO2 (Temp correct) 56.3 H Arterial Blood pO2 (Temp corrected) 133.8 H Arterial Blood HCO3 33.5 H Arterial Blood Base Excess 7.3 H Arterial Blood Oxygen Saturation 98.3 H Ck Test N/A Arterial Blood Gas Puncture Site Right Brachial Arterial Blood Carboxyhemoglobin 0.3 Arterial Blood Methemoglobin 0.1 Blood Gas A-a O2 Differential 14.0 Oxyhemoglobin Percent 97.9 Blood Gas Temperature 37.0 Blood Gas Actual Respiration Rate 22 Blood Gas Modality VENT - AC FiO2 30.0 Blood Gas Low PEEP Setting 5.0 Blood Gas Pressure Support 10 Blood Gas Notified Whom TM Blood Gas Notified Time 02/21/2019 11:46:10 AM White Blood Count 9.3 Red Blood Count 2.74 L Hemoglobin 8.4 L Hematocrit 28.4 L Mean Corpuscular Volume 103.6 H Mean Corpuscular Hemoglobin 30.7 Mean Corpuscular Hemoglobin Concent 29.6 L Red Cell Distribution Width 16.9 H Platelet Count 112 L Mean Platelet Volume 13.5 H Immature Granulocytes % 1.300 H Neutrophils % 64.1 Lymphocytes % 18.2 Monocytes % 14.0 H Eosinophils % 2.1 Basophils % 0.3 Nucleated Red Blood Cells % 0.5 H Immature Granulocytes # 0.120 H Neutrophils # 6.0 Lymphocytes # 1.7 Monocytes # 1.3 H Eosinophils # 0.2 Basophils # 0.0 Nucleated Red Blood Cells # 0.1 H Sodium Level 144 Potassium Level 4.3 Chloride Level 97 Carbon Dioxide Level 28 Anion Gap 19 H Blood Urea Nitrogen 74 #H Creatinine 5.97 #H Est Glomerular Filtrat Rate mL/min 8 L Glucose Level 94 Calcium Level 9.6 Total Bilirubin 0.0 L Direct Bilirubin 0.00 Indirect Bilirubin 0.0 Aspartate Amino Transf (AST/SGOT) 296 H Alanine Aminotransferase (ALT/SGPT) 1244 H Alkaline Phosphatase 142 H Total Protein 8.4 H Albumin 4.2 Globulin 4.20 H Albumin/Globulin Ratio 1.00 Medications Medication Current Medications IV Flush (NS 3 ml) 3 ml PER PROTOCOL IV ; Start 02/16/19 at 23:30 Ondansetron HCl (Zofran Tab) 4 mg Q6H PRN PO NAUSEA/VOMITING Last administered on 02/22/19 09:02; Admin Dose 4 MG; Start 02/16/19 at 23:30 Nitroglycerin (Nitroglycerin (Sl Tab) 0.4 Mg) 1 tab Q5M PRN SL .CHEST PAIN; Start 02/16/19 at 23:30 Acetaminophen (Tylenol Tab) 650 mg Q6H PRN PO .PAIN 1-3 OR TEMP Last administered on 02/21/19at 17:44; Admin Dose 650 MG; Start 02/16/19 at 23:30 Carvedilol (Coreg) 50 mg Q12 PO Last administered on 02/17/19at 21:55; Admin Dose 50 MG; Start 02/16/19 at 23:30; Status Hold Clonidine (Catapres) 0.1 mg TID PO Last administered on 02/17/19at 21:55; Admin Dose 0.1 MG; Start 02/17/19 at 09:00; Status Hold Hydroxychloroquine Sulfate (Plaquenil) 200 mg DAILY PO Last administered on 02/21/19at 08:56; Admin Dose 200 MG; Start 02/17/19 at 09:00 Mycophenolate Mofetil (Cellcept) 1,000 mg BID PO Last administered on 02/21/19 21:21; Admin Dose 1,000 MG; Start 02/16/19 at 23:30 Nifedipine (Procardia Xl) 60 mg BID PO Last administered on 02/17/19 21:55; Admin Dose 60 MG; Start 02/16/19 at 23:30 Prednisone (Prednisone) 5 mg DAILY PO Last administered on 02/21/19 08:57; Admin Dose 5 MG; Start 02/17/19 at 09:00 Sertraline HCl (Zoloft) 25 mg DAILY PO Last administered on 02/21/19 08:56; Admin Dose 25 MG; Start 02/17/19 at 09:00 Sevelamer Carbonate (Renvela) 0.8 gm WITH MEALS PO Last administered on 17:44; Admin Dose 0.8 GM; Start 02/17/19 at 08:00 Zolpidem Tartrate (Ambien) 5 mg HS PRN PO INSOMNIA Last administered on 02/22/19 00:43; Admin Dose 5 MG; Start 02/17/19 at 12:30 Heparin Sodium (Porcine) (Heparin (5000 Units/1ml)) 5,000 unit Q8 SC Last administered on 02/18/19 06:06; Admin Dose 5,000 UNIT; Start 02/17/19 at 02:00; Status Hold Labetalol HCl (Labetalol) 10 mg Q4 PRN IV SPB>170; Start 02/17/19 at 05:00 Heparin Sodium (Porcine) (Heparin (1000 Units/ml)) 4,000 unit AFTER DIALYSIS CATHETER ; Start 02/17/19 at 05:30 Albumin Human 100 ml @ 100 mls/hr WITH DIALYSIS PRN IV SBP <90 DURING DIALYSIS Last administered on 02/22/19 09:17; Admin Dose 100 MLS/HR; Start 02/17/19 at 05:30 Sodium Chloride (NS) -To prime the dialy... DIRECTED FOR HD PRN IV HD; Start 02/17/19 at 05:30 Hydromorphone HCl (Dilaudid) 0.5 mg Q8H PRN IV SEVERE PAIN LEVEL 7-10 Last administered on 02/22/19 03:51; Admin Dose 0.5 MG; Start 02/17/19 at 10:30 Midazolam HCl 50 ml @ 1 mls/hr PER PROTOCOL IV Last administered on 02/20/19 23:18; Admin Dose 2 MLS/HR; Start 02/17/19 at 09:30 Fentanyl 100 ml @ 2.5 mls/hr PER PROTOCOL IV Last administered on 02/20/19 19:54; Admin Dose 3 MLS/HR; Start 02/17/19 at 10:30 Phenylephrine HCl 80 mg/Dextrose 250 ml @ 18.75 mls/ hr TITRATE IV Last admi nistered on 02/21/19 05:56; Admin Dose 18.75 MLS/HR; Start 02/18/19 at 00:30 Piperacillin Sod/ Tazobactam Sod 50 ml @ 200 mls/hr Q8 IVPB Last administered on 02/22/19 05:31; Admin Dose 200 MLS/HR; Start 02/18/19 at 12:00 Aspirin (Aspirin) 81 mg DAILY NGT Last administered on 02/21/19 08:55; Admin Dose 81 MG; Start 02/18/19 at 10:00 Vancomycin HCl (Vanco Iv Per Pharmacy) VANCOMYCIN PER PHARMA... PER PROTOCOL XX ; Start 02/19/19 at 18:30 Lansoprazole (Prevacid) 30 mg DAILY@06 GTB Last administered on 02/22/19 05:31; Admin Dose 30 MG; Start 02/21/19 at 06:00 CONSTANCE THOMPSON Feb 22, 2019 09:36
--- NOTE | 2019-02-22 09:44 | CONS ---
Assessment/Plan Assessment/Plan Assessment/Plan (Daily) Chest x-ray was reviewed from today which is essentially clear. Assessment and recommendations; 1. Patient admitted for respiratory failure due to fluid overload status post intubation yesterday with stable clinical status. 2. History of lupus nephritis, hemodialysis dependent. 3. Anemia and thrombocytopenia. 4. History of hypertension. 5. History of chronic immunosuppression. Continue current supportive care. Patient can be transferred to medical floor. Hemodialysis per manager of revenue. Consultation Date/Type/Reason Admit Date/Time Feb 17, 2019 at 09:30 Initial Consult Date 02/20/19 Requesting Provider: JAKY ZELAYA MD, [facility] Date/Time of Note DATE: 02/22/19 TIME: 09:42 24 HR Interval Summary Free Text/Dictation Patient's condition is stable. Remains completely awake alert. Was successfully extubated yesterday. Currently getting hemodialysis at bedside. Denies any shortness of breath, chest pain. General exam; young female, awake alert, currently in no distress. Exam/Review of Systems Exam Vitals Vital Signs Date Temp Pulse Resp B/P (MAP) Pulse Ox O2 O2 Flow FiO2 Time Delivery Rate 02/22/19 85 09:20 02/22/19 20 99/72 (81) 100 Nasal 09:00 Cannula 02/22/19 97.0 08:00 02/22/19 2.0 08:00 02/22/19 27 05:53 Intake and Output 02/21/19 02/21/19 02/22/19 1515:00 23:00 07:00 IntakeIntake Total 260.75 ml 640 ml 360 ml OutputOutput Total 0 ml 0 ml 200 ml BalanceBalance 260.75 ml 640 ml 160 ml Exam HEENT exam; supple neck, no JVD. No lymphadenopathy. Midline trachea. No thyromegaly. Nasogastric tube in place. Patient has fair dentition. No neck masses. Chest exam; clear to auscultation. S1-S2 audible, no murmurs. Regular rhythm. Abdomen exam; soft, nontender. No organomegaly. Bowel sounds audible. Extremity exam; no peripheral edema or clubbing. [facility] [employer] exam; no focal deficit. Results Result Diagram: 02/22/19 0346 02/22/19 0346 Results 24hrs Laboratory Tests Test 02/21/19 11:00 02/22/19 03:46 Blood Gas Specimen Source Blood arterial Arterial Blood Date Drawn 02/21/2019 11:35:25 AM Arterial Blood pH (Temp corrected) 7.393 Arterial Blood pCO2 (Temp correct) 56.3 H Arterial Blood pO2 (Temp corrected) 133.8 H Arterial Blood HCO3 33.5 H Arterial Blood Base Excess 7.3 H Arterial Blood Oxygen Saturation 98.3 H Ck Test N/A Arterial Blood Gas Puncture Site Right Brachial Arterial Blood Carboxyhemoglobin 0.3 Arterial Blood Methemoglobin 0.1 Blood Gas A-a O2 Differential 14.0 Oxyhemoglobin Percent 97.9 Blood Gas Temperature 37.0 Blood Gas Actual Respiration Rate 22 Blood Gas Modality VENT - AC FiO2 30.0 Blood Gas Low PEEP Setting 5.0 Blood Gas Pressure Support 10 Blood Gas Notified Whom TM Blood Gas Notified Time 02/21/2019 11:46:10 AM White Blood Count 9.3 Red Blood Count 2.74 L Hemoglobin 8.4 L Hematocrit 28.4 L Mean Corpuscular Volume 103.6 H Mean Corpuscular Hemoglobin 30.7 Mean Corpuscular Hemoglobin Concent 29.6 L Red Cell Distribution Width 16.9 H Platelet Count 112 L Mean Platelet Volume 13.5 H Immature Granulocytes % 1.300 H Neutrophils % 64.1 Lymphocytes % 18.2 Monocytes % 14.0 H Eosinophils % 2.1 Basophils % 0.3 Nucleated Red Blood Cells % 0.5 H Immature Granulocytes # 0.120 H Neutrophils # 6.0 Lymphocytes # 1.7 Monocytes # 1.3 H Eosinophils # 0.2 Basophils # 0.0 Nucleated Red Blood Cells # 0.1 H Sodium Level 144 Potassium Level 4.3 Chloride Level 97 Carbon Dioxide Level 28 Anion Gap 19 H Blood Urea Nitrogen 74 #H Creatinine 5.97 #H Est Glomerular Filtrat Rate mL/min 8 L Glucose Level 94 Calcium Level 9.6 Total Bilirubin 0.0 L Direct Bilirubin 0.00 Indirect Bilirubin 0.0 Aspartate Amino Transf (AST/SGOT) 296 H Alanine Aminotransferase (ALT/SGPT) 1244 H Alkaline Phosphatase 142 H Total Protein 8.4 H Albumin 4.2 Globulin 4.20 H Albumin/Globulin Ratio 1.00 Medications Medication Current Medications IV Flush (NS 3 ml) 3 ml PER PROTOCOL IV ; Start 02/16/19 at 23:30 Ondansetron HCl (Zofran Tab) 4 mg Q6H PRN PO NAUSEA/VOMITING Last administered on 02/22/19 09:02; Admin Dose 4 MG; Start 02/16/19 at 23:30 Nitroglycerin (Nitroglycerin (Sl Tab) 0.4 Mg) 1 tab Q5M PRN SL .CHEST PAIN; Start 02/16/19 at 23:30 Acetaminophen (Tylenol Tab) 650 mg Q6H PRN PO .PAIN 1-3 OR TEMP Last administered on 02/21/19 17:44; Admin Dose 650 MG; Start 02/16/19 at 23:30 Carvedilol (Coreg) 50 mg Q12 PO Last administered on 02/17/19 21:55; Admin Dose 50 MG; Start 02/16/19 at 23:30; Status Hold Clonidine (Catapres) 0.1 mg TID PO Last administered on 02/17/19 21:55; Admin Dose 0.1 MG; Start 02/17/19 at 09:00; Status Hold Hydroxychloroquine Sulfate (Plaquenil) 200 mg DAILY PO Last administered on 02/21/19 08:56; Admin Dose 200 MG; Start 02/17/19 at 09:00 Mycophenolate Mofetil (Cellcept) 1,000 mg BID PO Last administered on 02/21/19 21:21; Admin Dose 1,000 MG; Start 02/16/19 at 23:30 Nifedipine (Procardia Xl) 60 mg BID PO Last administered on 02/17/19 21:55; Admin Dose 60 MG; Start 02/16/19 at 23:30 Prednisone (Prednisone) 5 mg DAILY PO Last administered on 02/21/19 08:57; Admin Dose 5 MG; Start 02/17/19 at 09:00 Sertraline HCl (Zoloft) 25 mg DAILY PO Last administered on 02/21/19 08:56; Admin Dose 25 MG; Start 02/17/19 at 09:00 Sevelamer Carbonate (Renvela) 0.8 gm WITH MEALS PO Last administered on 02/21/19 17:44; Admin Dose 0.8 GM; Start 02/17/19 at 08:00 Zolpidem Tartrate (Ambien) 5 mg HS PRN PO INSOMNIA Last administered on 02/22/19 00:43; Admin Dose 5 MG; Start 02/17/19 at 12:30 Heparin Sodium (Porcine) (Heparin (5000 Units/1ml)) 5,000 unit Q8 SC Last administered on 02/18/19 06:06; Admin Dose 5,000 UNIT; Start 02/17/19 at 02:00; Status Hold Labetalol HCl (Labetalol) 10 mg Q4 PRN IV SPB>170; Start 02/17/19 at 05:00 Heparin Sodium (Porcine) (Heparin (1000 Units/ml)) 4,000 unit AFTER DIALYSIS CATHETER ; Start 02/17/19 at 05:30 Albumin Human 100 ml @ 100 mls/hr WITH DIALYSIS PRN IV SBP <90 DURING DIALYSIS Last administered on 02/22/19 09:17; Admin Dose 100 MLS/HR; Start 02/17/19 at 05:30 Sodium Chloride (NS) -To prime the dialy... DIRECTED FOR HD PRN IV HD; Start 02/17/19 at 05:30 Hydromorphone HCl (Dilaudid) 0.5 mg Q8H PRN IV SEVERE PAIN LEVEL 7-10 Last administered on 02/22/19 03:51; Admin Dose 0.5 MG; Start 02/17/19 at 10:30 Midazolam HCl 50 ml @ 1 mls/hr PER PROTOCOL IV Last administered on 02/20/19 23:18; Admin Dose 2 MLS/HR; Start 02/17/19 at 09:30 Fentanyl 100 ml @ 2.5 mls/hr PER PROTOCOL IV Last administered on 02/20/19 19:54; Admin Dose 3 MLS/HR; Start 02/17/19 at 10:30 Phenylephrine HCl 80 mg/Dextrose 250 ml @ 18.75 mls/ hr TITRATE IV Last administered on 02/21/19 05:56; Admin Dose 18.75 MLS/HR; Start 02/18/19 at 00:30 Piperacillin Sod/ Tazobactam Sod 50 ml @ 200 mls/hr Q8 IVPB Last administered on 02/22/19 05:31; Admin Dose 200 MLS/HR; Start 02/18/19 at 12:00 Aspirin (Aspirin) 81 mg DAILY NGT Last administered on 02/21/19 08:55; Admin Dose 81 MG; Start 02/18/19 at 10:00 Vancomycin HCl (Vanco Iv Per Pharmacy) VANCOMYCIN PER PHARMA... PER PROTOCOL XX ; Start 02/19/19 at 18:30 Lansoprazole (Prevacid) 30 mg DAILY@06 GTB Last administered on 02/22/19at 05:31; Admin Dose 30 MG; Start 02/21/19 at 06:00 FELICIA STEWART Feb 22, 2019 09:44
--- NOTE | 2019-02-22 10:44 | CONS ---
Assessment/Plan Assessment/Plan Assessment/Plan (Daily) 1. acute hypoxic respiratory distress due to acute pulmonary edema 2. ESRD on HD 4 times a week at [facility] 3. Acute chest pain 4. Hyperkalemia 5. h/o Lupus 6. h/o HTN 7. H/o HL 8. H/o seizure disorder Plan: s/p HD today 2.5 L removed, will plan for HD tomorrow also then keep her on TTS schedule pt follows at [facility] and she gets HD 4 times a week on Tuesday, Tuesday, and Tuesday will follow up Consultation Date/Type/Reason Admit Date/Time Feb 17, 2019 at 09:30 Initial Consult Date 02/17/19 Type of Consult NEPHROLOGY Requesting Provider: JAKY ZELAYA MD, [facility] Date/Time of Note DATE: 02/22/19 TIME: 10:44 Exam/Review of Systems Exam Vitals Vital Signs Date Temp Pulse Resp B/P (MAP) Pulse Ox O2 O2 Flow FiO2 Time Delivery Rate 02/22/19 79 10:28 02/22/19 20 113/80 100 Nasal 2.0 10:00 (91) Cannula 02/22/19 97.0 08:00 02/22/19 27 05:53 Intake and Output 02/21/19 02/21/19 02/22/19 1515:00 23:00 07:00 IntakeIntake Total 260.75 ml 640 ml 360 ml OutputOutput Total 0 ml 0 ml 200 ml BalanceBalance 260.75 ml 640 ml 160 ml Results Result Diagram: 02/22/19 0346 02/22/19 0346 Results 24hrs Laboratory Tests Test 02/21/19 11:00 02/22/19 03:46 Blood Gas Specimen Source Blood arterial Arterial Blood Date Drawn 02/21/2019 11:35:25 AM Arterial Blood pH (Temp corrected) 7.393 Arterial Blood pCO2 (Temp correct) 56.3 H Arterial Blood pO2 (Temp corrected) 133.8 H Arterial Blood HCO3 33.5 H Arterial Blood Base Excess 7.3 H Arterial Blood Oxygen Saturation 98.3 H Ck Test N/A Arterial Blood Gas Puncture Site Right Brachial Arterial Blood Carboxyhemoglobin 0.3 Arterial Blood Methemoglobin 0.1 Blood Gas A-a O2 Differential 14.0 Oxyhemoglobin Percent 97.9 Blood Gas Temperature 37.0 Blood Gas Actual Respiration Rate 22 Blood Gas Modality VENT - AC FiO2 30.0 Blood Gas Low PEEP Setting 5.0 Blood Gas Pressure Support 10 Blood Gas Notified Whom TM Blood Gas Notified Time 02/21/2019 11:46:10 AM White Blood Count 9.3 Red Blood Count 2.74 L Hemoglobin 8.4 L Hematocrit 28.4 L Mean Corpuscular Volume 103.6 H Mean Corpuscular Hemoglobin 30.7 Mean Corpuscular Hemoglobin Concent 29.6 L Red Cell Distribution Width 16.9 H Platelet Count 112 L Mean Platelet Volume 13.5 H Immature Granulocytes % 1.300 H Neutrophils % 64.1 Lymphocytes % 18.2 Monocytes % 14.0 H Eosinophils % 2.1 Basophils % 0.3 Nucleated Red Blood Cells % 0.5 H Immature Granulocytes # 0.120 H Neutrophils # 6.0 Lymphocytes # 1.7 Monocytes # 1.3 H Eosinophils # 0.2 Basophils # 0.0 Nucleated Red Blood Cells # 0.1 H Sodium Level 144 Potassium Level 4.3 Chloride Level 97 Carbon Dioxide Level 28 Anion Gap 19 H Blood Urea Nitrogen 74 #H Creatinine 5.97 #H Est Glomerular Filtrat Rate mL/min 8 L Glucose Level 94 Calcium Level 9.6 Total Bilirubin 0.0 L Direct Bilirubin 0.00 Indirect Bilirubin 0.0 Aspartate Amino Transf (AST/SGOT) 296 H Alanine Aminotransferase (ALT/SGPT) 1244 H Alkaline Phosphatase 142 H Total Protein 8.4 H Albumin 4.2 Globulin 4.20 H Albumin/Globulin Ratio 1.00 Medications Medication Current Medications IV Flush (NS 3 ml) 3 ml PER PROTOCOL IV ; Start 02/16/19 at 23:30 Ondansetron HCl (Zofran Tab) 4 mg Q6H PRN PO NAUSEA/VOMITING Last administered on 02/22/19at 09:02; Admin Dose 4 MG; Start 02/16/19 at 23:30 Nitroglycerin (Nitroglycerin (Sl Tab) 0.4 Mg) 1 tab Q5M PRN SL .CHEST PAIN; Start 02/16/19 at 23:30 Acetaminophen (Tylenol Tab) 650 mg Q6H PRN PO .PAIN 1-3 OR TEMP Last administered on 02/21/19at 17:44; Admin Dose 650 MG; Start 02/16/19 at 23:30 Carvedilol (Coreg) 50 mg Q12 PO Last administered on 02/17/19 21:55; Admin Dose 50 MG; Start 02/16/19 at 23:30; Status Hold Clonidine (Catapres) 0.1 mg TID PO Last administered on 02/17/19 21:55; Admin Dose 0.1 MG; Start 02/17/19 at 09:00; Status Hold Hydroxychloroquine Sulfate (Plaquenil) 200 mg DAILY PO Last administered on 02/21/19 08:56; Admin Dose 200 MG; Start 02/17/19 at 09:00 Mycophenolate Mofetil (Cellcept) 1,000 mg BID PO Last administered on 02/21/19 21:21; Admin Dose 1,000 MG; Start 02/16/19 at 23:30 Nifedipine (Procardia Xl) 60 mg BID PO Last administered on 02/17/19 21:55; Admin Dose 60 MG; Start 02/16/19 at 23:30 Prednisone (Prednisone) 5 mg DAILY PO Last administered on 02/21/19 08:57; Admin Dose 5 MG; Start 02/17/19 at 09:00 Sertraline HCl (Zoloft) 25 mg DAILY PO Last administered on 02/21/19 08:56; Admin Dose 25 MG; Start 02/17/19 at 09:00 Sevelamer Carbonate (Renvela) 0.8 gm WITH MEALS PO Last administered on 02/21/19 17:44; Admin Dose 0.8 GM; Start 02/17/19 at 08:00 Zolpidem Tartrate (Ambien) 5 mg HS PRN PO INSOMNIA Last administered on 02/22/19 00:43; Admin Dose 5 MG; Start 02/17/19 at 12:30 Heparin Sodium (Porcine) (Heparin (5000 Units/1ml)) 5,000 unit Q8 SC Last administered on 02/18/19 06:06; Admin Dose 5,000 UNIT; Start 02/17/19 at 02:00; Status Hold Labetalol HCl (Labetalol) 10 mg Q4 PRN IV SPB>170; Start 02/17/19 at 05:00 Heparin Sodium (Porcine) (Heparin (1000 Units/ml)) 4,000 unit AFTER DIALYSIS CATHETER ; Start 02/17/19 at 05:30 Albumin Human 100 ml @ 100 mls/hr WITH DIALYSIS PRN IV SBP <90 DURING DIALYSIS Last administered on 02/22/19 09:17; Admin Dose 100 MLS/HR; Start 02/17/19 at 05:30 Sodium Chloride (NS) -To prime the dialy... DIRECTED FOR HD PRN IV HD; Start 02/17/19 at 05:30 Hydromorphone HCl (Dilaudid) 0.5 mg Q8H PRN IV SEVERE PAIN LEVEL 7-10 Last administered on 02/22/19 03:51; Admin Dose 0.5 MG; Start 02/17/19 at 10:30 Midazolam HCl 50 ml @ 1 mls/hr PER PROTOCOL IV Last administered on 02/20/19 23:18; Admin Dose 2 MLS/HR; Start 02/17/19 at 09:30 Fentanyl 100 ml @ 2.5 mls/hr PER PROTOCOL IV Last administered on 02/20/19 19:54; Admin Dose 3 MLS/HR; Start 02/17/19 at 10:30 Phenylephrine HCl 80 mg/Dextrose 250 ml @ 18.75 mls/ hr TITRATE IV Last administered on 02/21/19 05:56; Admin Dose 18.75 MLS/HR; Start 02/18/19 at 00:30 Aspirin (Aspirin) 81 mg DAILY NGT Last administered on 02/21/19 08:55; Admin Dose 81 MG; Start 02/18/19 at 10:00 Lansoprazole (Prevacid) 30 mg DAILY@06 GTB Last administered on 02/22/19 05:31; Admin Dose 30 MG; Start 02/21/19 at 06:00 ARTURO AMADOR MD Feb 22, 2019 10:44
[2019-02-22] MEDS: NIFEdipine (XL) 60 MG TAB PO SCH ×2 (10:50→21:00)
[2019-02-22] MEDS: HYDROXYCHLOROQUINE 200 MG TAB PO SCH (10:50)
[2019-02-22] MEDS: predniSONE 5 MG TAB PO SCH (10:50)
[2019-02-22] MEDS: MYCOPHENOLATE 250 MG CAP PO SCH ×2 (10:51→21:00)
[2019-02-22] MEDS: SERTRALINE 50 MG TAB PO SCH (10:51)
[2019-02-22] MEDS: ASPIRIN 81 MG TAB NGT SCH (10:51)
[2019-02-23] VITALS (25 sets, daily range): BP systolic 88–168; BP diastolic 64–108; PULSE 64–118; RESP 18
[2019-02-23] MEDS: ZOLPIDEM 5 MG TAB PO PRN
[2019-02-23] MEDS: LANSOPRAZOLE 30 MG CAP GTB SCH (05:16)
[2019-02-23] MEDS: HYDROmorphONE 0.5 MG/0.5 ML SYG IV PRN ×3 (05:17→17:59)
[2019-02-23] MEDS: ONDANSETRON 4 MG TAB PO PRN ×3 (05:17→17:59)
[2019-02-23] MEDS: SEVELAMER CARBONATE 0.8 GM PKT PO SCH ×4 (08:00→17:25)
[2019-02-23] MEDS: SERTRALINE 50 MG TAB PO SCH (08:12)
[2019-02-23] MEDS: NIFEdipine (XL) 60 MG TAB PO SCH (08:12)
[2019-02-23] MEDS: predniSONE 5 MG TAB PO SCH (08:12)
[2019-02-23] MEDS: ASPIRIN 81 MG TAB NGT SCH (08:12)
[2019-02-23] MEDS: MYCOPHENOLATE 250 MG CAP PO SCH ×2 (08:12→20:52)
--- NOTE | 2019-02-23 10:05 | PN ---
Date/Time of Note Date/Time of Note DATE: 02/23/19 TIME: 09:57 Assessment/Plan VTE Prophylaxis Risk score (from Nsg)>0 risk: 4 SCD applied (from Nsg): Yes Pharmacological prophylaxis: other Lines/Catheters IV Catheter Type (from Nrsg): Central Line Central line still needed: Yes Urinary Cath still in place: No Assessment/Plan Hospital Course S: Patient out of ICU, tolerating liquid diet after being seen by speech therapy team. Presently getting dialysis. More awake and alert today. O: VS - see below PE: General: lying in bed, getting dialysis, answering questions appropriately HEENT: Atraumatic, normocephalic. Neck: Supple Chest: Nontender Lungs: Slightly decreased breath sounds bilaterally Heart: Normal S1-S2, Regular rhythm and rate. No murmur, S3, or S4 Abdomen: Soft , nontender, nondistended , bowel sounds are present. Extremities: Normal to inspection, no edema no cyanosis. Right femoral line clean/dry/intact. Assessment/Plan: 33 yo woman with history of SLE, lupus nephritis, ESRD on dialysis who presents with chest pain and respiratory distress. #Respiratory distress: Resolved now - secondary to possible volume overload and flash pulmonary edema along with possible aspiration pneumonia: As evidenced by sudden onset of respiratory failure, diffuse fluffy infiltrates, pink foam directly from ET tube on 02/17- The patient has had several of these episodes requiring emergent intubation at this hospital. Patient on this admission initially was intubated, and again was extubated 2 days ago. Of note she is compliant with home medications and dialysis. With previous episodes, respiratory status typically improves quickly after dialysis. -Monitor breathing status, follow pulmonary recommendations -duonebs as needed -We will also get PT eval and OT eval #septic shock-resolved now, likely secondary to aspiration pneumonitis/pneumonia. Patient earlier had fever and hypotension requiring pressor -again white blood count stable for the last 4 days -Follow-up results of blood cultures ordered, continue pressor support wean down as tolerated -Off antibiotics presently, culture results to date have been negative #ESRD: Receive dialysis 3 days in a row this admission, getting dialysis again today. Normally as an outpatient gets dialysis 4 times a week. Renal team and spoke with family about adjustments made to the amount of volume being taken out on dialysis now which has been adjusted. -Continue dialysis per renal, and Renvela #SLE: Patient has had this for the last 12 years - Continue plaquenil, CellCept, and low-dose p.o. steroids # chronic cachexia and malnutrition: Again seen by speech therapy team and has been on full liquid diet for the last 24 hours -Continue diet for now, advance per speech therapy recommendation # chronic anemia: Secondary likely to underlying end-stage renal disease. Hemoglobin improved from 8.4-10.2 today, no transfusion given - continue to monitor closely Dispo: Likely home in 1 to 2 days once her strength improves with physical therapy and Occupational Therapy, advancement of diet can occur, and clearance given by pulmonary and renal teams. Result Diagram: 02/23/1952602/23/19526 Results 24hrs Laboratory Tests Test 02/23/19 05:27 White Blood Count 9.0 Red Blood Count 3.43 #L Hemoglobin 10.2 #L Hematocrit 34.3 #L Mean Corpuscular Volume 100.0 Mean Corpuscular Hemoglobin 29.7 Mean Corpuscular Hemoglobin Concent 29.7 L Red Cell Distribution Width 16.5 H Platelet Count 140 # Mean Platelet Volume 12.8 H Immature Granulocytes % 1.200 H Neutrophils % 58.5 Lymphocytes % 22.3 Monocytes % 13.8 H Eosinophils % 3.6 Basophils % 0.6 Nucleated Red Blood Cells % 0.8 H Immature Granulocytes # 0.110 H Neutrophils # 5.3 Lymphocytes # 2.0 Monocytes # 1.2 H Eosinophils # 0.3 Basophils # 0.1 Nucleated Red Blood Cells # 0.1 H Sodium Level 143 Potassium Level 4.1 Chloride Level 91 L Carbon Dioxide Level 30 Anion Gap 22 H Blood Urea Nitrogen 50 H Creatinine 4.73 #H Est Glomerular Filtrat Rate mL/min 11 L Glucose Level 100 Calcium Level 11.3 H Exam/Review of Systems Exam Vitals Vital Signs Date Temp Pulse Resp B/P (MAP) Pulse Ox O2 O2 Flow FiO2 Time Delivery Rate 02/23/19 108 18 117/83 96 Room Air 09:50 (94) 02/23/19 98.4 07:11 02/22/19 21 20:36 02/22/19 2.0 18:22 Intake and Output 02/22/19 02/22/19 02/23/19 1515:00 23:00 07:00 IntakeIntake Total 225 ml 60 ml 240 ml OutputOutput Total 3300 ml BalanceBalance -3075 ml 60 ml 240 ml Results Results 24hrs Laboratory Tests Test 02/23/19 05:27 White Blood Count 9.0 Red Blood Count 3.43 #L Hemoglobin 10.2 #L Hematocrit 34.3 #L Mean Corpuscular Volume 100.0 Mean Corpuscular Hemoglobin 29.7 Mean Corpuscular Hemoglobin Concent 29.7 L Red Cell Distribution Width 16.5 H Platelet Count 140 # Mean Platelet Volume 12.8 H Immature Granulocytes % 1.200 H Neutrophils % 58.5 Lymphocytes % 22.3 Monocytes % 13.8 H Eosinophils % 3.6 Basophils % 0.6 Nucleated Red Blood Cells % 0.8 H Immature Granulocytes # 0.110 H Neutrophils # 5.3 Lymphocytes # 2.0 Monocytes # 1.2 H Eosinophils # 0.3 Basophils # 0.1 Nucleated Red Blood Cells # 0.1 H Sodium Level 143 Potassium Level 4.1 Chloride Level 91 L Carbon Dioxide Level 30 Anion Gap 22 H Blood Urea Nitrogen 50 H Creatinine 4.73 #H Est Glomerular Filtrat Rate mL/min 11 L Glucose Level 100 Calcium Level 11.3 H Medications Medication Current Medications IV Flush (NS 3 ml) 3 ml PER PROTOCOL IV ; Start 02/16/19 at 23:30 Ondansetron HCl (Zofran Tab) 4 mg Q6H PRN PO NAUSEA/VOMITING Last administered on 02/23/19at 05:17; Admin Dose 4 MG; Start 02/16/19 at 23:30 Nitroglycerin (Nitroglycerin (Sl Tab) 0.4 Mg) 1 tab Q5M PRN SL .CHEST PAIN; Start 02/16/19 at 23:30 Acetaminophen (Tylenol Tab) 650 mg Q6H PRN PO .PAIN 1-3 OR TEMP Last administered on 02/21/19at 17:44; Admin Dose 650 MG; Start 02/16/19 at 23:30 Carvedilol (Coreg) 50 mg Q12 PO Last administered on 02/17/19at 21:55; Admin Dose 50 MG; Start 02/16/19 at 23:30; Status Hold Clonidine (Catapres) 0.1 mg TID PO Last administered on 02/17/19at 21:55; Admin Dose 0.1 MG; Start 02/17/19 at 09:00; Status Hold Hydroxychloroquine Sulfate (Plaquenil) 200 mg DAILY PO Last administered on 02/22/19 10:50; Admin Dose 200 MG; Start 02/17/19 at 09:00 Mycophenolate Mofetil (Cellcept) 1,000 mg BID PO Last administered on 02/23/19 08:12; Admin Dose 1,000 MG; Start 02/16/19 at 23:30 Nifedipine (Procardia Xl) 60 mg BID PO Last administered on 02/23/19 08:12; Admin Dose 60 MG; Start 02/16/19 at 23:30 Prednisone (Prednisone) 5 mg DAILY PO Last administered on 02/23/19 08:12; Admin Dose 5 MG; Start 02/17/19 at 09:00 Sertraline HCl (Zoloft) 25 mg DAILY PO Last administered on 02/23/19 08:12; Admin Dose 25 MG; Start 02/17/19 at 09:00 Sevelamer Carbonate (Renvela) 0.8 gm WITH MEALS PO Last administered on 02/22/19 16:37; Admin Dose 0.8 GM; Start 02/17/19 at 08:00 Zolpidem Tartrate (Ambien) 5 mg HS PRN PO INSOMNIA Last administered on 02/23/19 00:00; Admin Dose 5 MG; Start 02/17/19 at 12:30 Heparin Sodium (Porcine) (Heparin (5000 Units/1ml)) 5,000 unit Q8 SC Last administered on 02/18/19 06:06; Admin Dose 5,000 UNIT; Start 02/17/19 at 02:00; Status Hold Labetalol HCl (Labetalol) 10 mg Q4 PRN IV SPB>170; Start 02/17/19 at 05:00 Heparin Sodium (Porcine) (Heparin (1000 Units/ml)) 4,000 unit AFTER DIALYSIS C ATHETER ; Start 02/17/19 at 05:30 Albumin Human 100 ml @ 100 mls/hr WITH DIALYSIS PRN IV SBP <90 DURING DIALYSIS Last administered on 02/22/19 09:17; Admin Dose 100 MLS/HR; Start 02/17/19 at 05:30 Sodium Chloride (NS) -To prime the dialy... DIRECTED FOR HD PRN IV HD; Start 02/17/19 at 05:30 Midazolam HCl 50 ml @ 1 mls/hr PER PROTOCOL IV Last administered on 02/20/19 23:18; Admin Dose 2 MLS/HR; Start 02/17/19 at 09:30 Fentanyl 100 ml @ 2.5 mls/hr PER PROTOCOL IV Last administered on 02/20/19 19:54; Admin Dose 3 MLS/HR; Start 02/17/19 at 10:30 Phenylephrine HCl 80 mg/Dextrose 250 ml @ 18.75 mls/ hr TITRATE IV Last administered on 02/21/19 05:56; Admin Dose 18.75 MLS/HR; Start 02/18/19 at 00:30 Aspirin (Aspirin) 81 mg DAILY NGT Last administered on 02/23/19 08:12; Admin Dose 81 MG; Start 02/18/19 at 10:00 Lansoprazole (Prevacid) 30 mg DAILY@06 GTB Last administered on 02/23/19 05:16; Admin Dose 30 MG; Start 02/21/19 at 06:00 Hydromorphone HCl (Dilaudid) 0.5 mg Q6H PRN IV SEVERE PAIN LEVEL 7-10 Last administered on 02/23/19 05:17; Admin Dose 0.5 MG; Start 02/22/19 at 16:30 CONSTANCE THOMPSON Feb 23, 2019 10:05
--- NOTE | 2019-02-23 11:28 | CONS ---
Consult Date/Type/Reason Admit Date/Time Feb 17, 2019 at 09:30 Initial Consult Date 02/17/19 Type of Consult Pulmonary Requesting Provider: JAKY ZELAYA MD, [facility] Date/Time of Note DATE: 02/23/19 TIME: 11:26 Subjective Stable post extubation. Objective Vital Signs Date Temp Pulse Resp B/P (MAP) Pulse Ox O2 O2 Flow FiO2 Time Delivery Rate 02/23/19 102 10:45 02/23/19 18 117/83 96 Room Air 09:50 (94) 02/23/19 98.4 07:11 02/22/19 21 20:36 02/22/19 2.0 18:22 Intake and Output 02/22/19 02/22/19 02/23/19 1515:00 23:00 07:00 IntakeIntake Total 225 ml 60 ml 240 ml OutputOutput Total 3300 ml BalanceBalance -3075 ml 60 ml 240 ml Exam PHYSICAL EXAMINATION: GENERAL: Chronically ill appearing lady, nasal cannula. VITAL SIGNS: NECK: Supple, no JVD or lymphadenopathy. CARDIAC: S1, S2, no added sounds or murmurs. CHEST: Diminished air entry bilaterally. ABDOMEN: Soft, nontender. No guarding or rebound. EXTREMITIES: No cyanosis, clubbing, 1+ edema. NEUROLOGIC: Generalized weakness. Vent Setting Ventilator Support Mode: CPAP, PS, SPONT Fraction of Inspired Oxygen pe: 21 Positive End Expiratory Pressu: 5.0 Results/Medications Result Diagram: 02/23/19 0527 02/23/19 0527 Results 24 hrs Laboratory Tests Test 02/23/19 05:27 White Blood Count 9.0 Red Blood Count 3.43 #L Hemoglobin 10.2 #L Hematocrit 34.3 #L Mean Corpuscular Volume 100.0 Mean Corpuscular Hemoglobin 29.7 Mean Corpuscular Hemoglobin Concent 29.7 L Red Cell Distribution Width 16.5 H Platelet Count 140 # Mean Platelet Volume 12.8 H Immature Granulocytes % 1.200 H Neutrophils % 58.5 Lymphocytes % 22.3 Monocytes % 13.8 H Eosinophils % 3.6 Basophils % 0.6 Nucleated Red Blood Cells % 0.8 H Immature Granulocytes # 0.110 H Neutrophils # 5.3 Lymphocytes # 2.0 Monocytes # 1.2 H Eosinophils # 0.3 Basophils # 0.1 Nucleated Red Blood Cells # 0.1 H Sodium Level 143 Potassium Level 4.1 Chloride Level 91 L Carbon Dioxide Level 30 Anion Gap 22 H Blood Urea Nitrogen 50 H Creatinine 4.73 #H Est Glomerular Filtrat Rate mL/min 11 L Glucose Level 100 Calcium Level 11.3 H Medications Current Medications IV Flush (NS 3 ml) 3 ml PER PROTOCOL IV ; Start 02/16/19 at 23:30 Ondansetron HCl (Zofran Tab) 4 mg Q6H PRN PO NAUSEA/VOMITING Last administered on 02/23/19 05:17; Admin Dose 4 MG; Start 02/16/19 at 23:30 Nitroglycerin (Nitroglycerin (Sl Tab) 0.4 Mg) 1 tab Q5M PRN SL .CHEST PAIN; Start 02/16/19 at 23:30 Acetaminophen (Tylenol Tab) 650 mg Q6H PRN PO .PAIN 1-3 OR TEMP Last administered on 02/21/19 17:44; Admin Dose 650 MG; Start 02/16/19 at 23:30 Carvedilol (Coreg) 50 mg Q12 PO Last administered on 02/17/19 21:55; Admin Dose 50 MG; Start 02/16/19 at 23:30; Status Hold Clonidine (Catapres) 0.1 mg TID PO Last administered on 02/17/19 21:55; Admin Dose 0.1 MG; Start 02/17/19 at 09:00; Status Hold Hydroxychloroquine Sulfate (Plaquenil) 200 mg DAILY PO Last administered on 02/22/19 10:50; Admin Dose 200 MG; Start 02/17/19 at 09:00 Mycophenolate Mofetil (Cellcept) 1,000 mg BID PO Last administered on 02/23/19 08:12; Admin Dose 1,000 MG; Start 02/16/19 at 23:30 Nifedipine (Procardia Xl) 60 mg BID PO Last administered on 02/23/19 08:12; Admin Dose 60 MG; Start 02/16/19 at 23:30 Prednisone (Prednisone) 5 mg DAILY PO Last administered on 02/23/19 08:12; Admin Dose 5 MG; Start 02/17/19 at 09:00 Sertraline HCl (Zoloft) 25 mg DAILY PO Last administered on 02/23/19 08:12; Admin Dose 25 MG; Start 02/17/19 at 09:00 Sevelamer Carbonate (Renvela) 0.8 gm WITH MEALS PO Last administered on 02/22/19 16:37; Admin Dose 0.8 GM; Start 02/17/19 at 08:00 Zolpidem Tartrate (Ambien) 5 mg HS PRN PO INSOMNIA Last administered on 02/23/19 00:00; Admin Dose 5 MG; Start 02/17/19 at 12:30 Heparin Sodium (Porcine) (Heparin (5000 Units/1ml)) 5,000 unit Q8 SC Last administered on 02/18/19 06:06; Admin Dose 5,000 UNIT; Start 02/17/19 at 02:00; Status Hold Labetalol HCl (Labetalol) 10 mg Q4 PRN IV SPB>170; Start 02/17/19 at 05:00 Heparin Sodium (Porcine) (Heparin (1000 Units/ml)) 4,000 unit AFTER DIALYSIS CATHETER ; Start 02/17/19 at 05:30 Albumin Human 100 ml @ 100 mls/hr WITH DIALYSIS PRN IV SBP <90 DURING DIALYSIS Last administered on 02/22/19 09:17; Admin Dose 100 MLS/HR; Start 02/17/19 at 05:30 Sodium Chloride (NS) -To prime the dialy... DIRECTED FOR HD PRN IV HD; Start 02/17/19 at 05:30 Midazolam HCl 50 ml @ 1 mls/hr PER PROTOCOL IV Last administered on 02/20/19 23:18; Admin Dose 2 MLS/HR; Start 02/17/19 at 09:30 Fentanyl 100 ml @ 2.5 mls/hr PER PROTOCOL IV Last administered on 02/20/19 19:54; Admin Dose 3 MLS/HR; Start 02/17/19 at 10:30 Phenylephrine HCl 80 mg/Dextrose 250 ml @ 18.75 mls/ hr TITRATE IV Last administered on 02/21/19 05:56; Admin Dose 18.75 MLS/HR; Start 02/18/19 at 00:30 Aspirin (Aspirin) 81 mg DAILY NGT Last administered on 02/23/19 08:12; Admin Dose 81 MG; Start 02/18/19 at 10:00 Lansoprazole (Prevacid) 30 mg DAILY@06 GTB Last administered on 4/26/19at 05:16; Admin Dose 30 MG; Start 02/21/19 at 06:00 Hydromorphone HCl (Dilaudid) 0.5 mg Q6H PRN IV SEVERE PAIN LEVEL 7-10 Last administered on 02/23/19at 05:17; Admin Dose 0.5 MG; Start 02/22/19 at 16:30 Assessment/Plan Hospital Course (Demo Recall) IMPRESSION AND PLAN: 1. Acute hypoxemic respiratory failure, likely secondary to volume overload. Probable component of aspiration pneumonia also.Now extubated. 2. End-stage renal failure on hemodialysis. 3. Systemic lupus erythematosus with lupus nephritis. 4. Encephalopathy, toxic metabolic secondary to above. 5. Septic shock possible aspiration pneumonitis PLAN: 1. Aspiration precautions. 2. Continue hemodialysis for volume removal 3. Adequate sedation and pain control. 4. DVT and GI prophylaxis. 5. Broad-spectrum antibiotic coverage consider de-escalation of antibiotics dc planning. JAKY ZELAYA MD, [facility] Feb 23, 2019 11:28
[2019-02-23] MEDS: HYDROXYCHLOROQUINE 200 MG TAB PO SCH (12:28)
--- NOTE | 2019-02-23 13:24 | CONS ---
Assessment/Plan Assessment/Plan Assessment/Plan (Daily) 1. acute hypoxic respiratory distress due to acute pulmonary edema 2. ESRD on HD 4 times a week at [facility] schedule 3. Acute chest pain 4. Hyperkalemia 5. h/o Lupus 6. h/o HTN 7. H/o HL 8. H/o seizure disorder Plan: s/p HD today 1.3 L removed pt stable, saturing well, BP stable- will plan for HD tomorrow also then keep her on TTS schedule pt follows at [facility] and she gets HD 4 times a week on Tuesday, Tuesday, and Tuesday will follow up Consultation Date/Type/Reason Admit Date/Time Feb 17, 2019 at 09:30 Initial Consult Date 02/17/19 Type of Consult NEPHROLOGY Requesting Provider: JAKY ZELAYA MD, [facility] Date/Time of Note DATE: 02/23/19 TIME: 13:23 24 HR Interval Summary Free Text/Dictation s/p HD today 1.3 L removed pt stable, saturing well, BP stable Exam/Review of Systems Exam Vitals Vital Signs Date Temp Pulse Resp B/P (MAP) Pulse Ox O2 O2 Flow FiO2 Time Delivery Rate 02/23/19 Room Air 12:37 02/23/19 18 97/67 (77) 96 12:34 02/23/19 101 12:26 02/23/19 97.8 12:15 02/22/19 21 20:36 02/22/19 2.0 18:22 Intake and Output 02/22/19 02/22/19 02/23/19 1515:00 23:00 07:00 IntakeIntake Total 225 ml 60 ml 240 ml OutputOutput Total 3300 ml BalanceBalance -3075 ml 60 ml 240 ml Exam GENERAL: Chronically ill appearing lady, nasal cannula. NECK: Supple, no JVD or lymphadenopathy. CARDIAC: S1, S2, no added sounds or murmurs. CHEST: Diminished air entry bilaterally. ABDOMEN: Soft, nontender. No guarding or rebound. EXTREMITIES: No cyanosis, clubbing, 1+ edema. NEUROLOGIC: Generalized weakness. Results Result Diagram: 02/23/19 0527 02/23/19 0527 Results 24hrs Laboratory Tests Test 02/23/19 05:27 White Blood Count 9.0 Red Blood Count 3.43 #L Hemoglobin 10.2 #L Hematocrit 34.3 #L Mean Corpuscular Volume 100.0 Mean Corpuscular Hemoglobin 29.7 Mean Corpuscular Hemoglobin Concent 29.7 L Red Cell Distribution Width 16.5 H Platelet Count 140 # Mean Platelet Volume 12.8 H Immature Granulocytes % 1.200 H Neutrophils % 58.5 Lymphocytes % 22.3 Monocytes % 13.8 H Eosinophils % 3.6 Basophils % 0.6 Nucleated Red Blood Cells % 0.8 H Immature Granulocytes # 0.110 H Neutrophils # 5.3 Lymphocytes # 2.0 Monocytes # 1.2 H Eosinophils # 0.3 Basophils # 0.1 Nucleated Red Blood Cells # 0.1 H Sodium Level 143 Potassium Level 4.1 Chloride Level 91 L Carbon Dioxide Level 30 Anion Gap 22 H Blood Urea Nitrogen 50 H Creatinine 4.73 #H Est Glomerular Filtrat Rate mL/min 11 L Glucose Level 100 Calcium Level 11.3 H Medications Medication Current Medications IV Flush (NS 3 ml) 3 ml PER PROTOCOL IV ; Start 02/16/19 at 23:30 Ondansetron HCl (Zofran Tab) 4 mg Q6H PRN PO NAUSEA/VOMITING Last administered on 02/23/19 12:28; Admin Dose 4 MG; Start 02/16/19 at 23:30 Nitroglycerin (Nitroglycerin (Sl Tab) 0.4 Mg) 1 tab Q5M PRN SL .CHEST PAIN; Start 02/16/19 at 23:30 Acetaminophen (Tylenol Tab) 650 mg Q6H PRN PO .PAIN 1-3 OR TEMP Last administered on 02/21/19 17:44; Admin Dose 650 MG; Start 02/16/19 at 23:30 Carvedilol (Coreg) 50 mg Q12 PO Last administered on 02/17/19 21:55; Admin Dos e 50 MG; Start 02/16/19 at 23:30; Status Hold Clonidine (Catapres) 0.1 mg TID PO Last administered on 02/17/19 21:55; Admin Dose 0.1 MG; Start 02/17/19 at 09:00; Status Hold Hydroxychloroquine Sulfate (Plaquenil) 200 mg DAILY PO Last administered on 02/23/19 12:28; Admin Dose 200 MG; Start 02/17/19 at 09:00 Mycophenolate Mofetil (Cellcept) 1,000 mg BID PO Last administered on 02/23/19 08:12; Admin Dose 1,000 MG; Start 02/16/19 at 23:30 Nifedipine (Procardia Xl) 60 mg BID PO Last administered on 02/23/19 08:12; Admin Dose 60 MG; Start 02/16/19 at 23:30 Prednisone (Prednisone) 5 mg DAILY PO Last administered on 02/23/19 08:12; Admin Dose 5 MG; Start 02/17/19 at 09:00 Sertraline HCl (Zoloft) 25 mg DAILY PO Last administered on 02/23/19 08:12; Admin Dose 25 MG; Start 02/17/19 at 09:00 Sevelamer Carbonate (Renvela) 0.8 gm WITH MEALS PO Last administered on 02/22/19 16:37; Admin Dose 0.8 GM; Start 02/17/19 at 08:00 Zolpidem Tartrate (Ambien) 5 mg HS PRN PO INSOMNIA Last administered on 02/23/19 00:00; Admin Dose 5 MG; Start 02/17/19 at 12:30 Heparin Sodium (Porcine) (Heparin (5000 Units/1ml)) 5,000 unit Q8 SC Last administered on 02/18/19 06:06; Admin Dose 5,000 UNIT; Start 02/17/19 at 02:00; Status Hold Labetalol HCl (Labetalol) 10 mg Q4 PRN IV SPB>170; Start 02/17/19 at 05:00 Heparin Sodium (Porcine) (Heparin (1000 Units/ml)) 4,000 unit AFTER DIALYSIS CATHETER ; Start 02/17/19 at 05:30 Albumin Human 100 ml @ 100 mls/hr WITH DIALYSIS PRN IV SBP <90 DURING DIALYSIS Last administered on 02/22/19 09:17; Admin Dose 100 MLS/HR; Start 02/17/19 at 05:30 Sodium Chloride (NS) -To prime the dialy... DIRECTED FOR HD PRN IV HD; Start 02/17/19 at 05:30 Midazolam HCl 50 ml @ 1 mls/hr PER PROTOCOL IV Last administered on 02/20/19 23:18; Admin Dose 2 MLS/HR; Start 02/17/19 at 09:30 Fentanyl 100 ml @ 2.5 mls/hr PER PROTOCOL IV Last administered on 02/20/19 19:54; Admin Dose 3 MLS/HR; Start 02/17/19 at 10:30 Phenylephrine HCl 80 mg/Dextrose 250 ml @ 18.75 mls/ hr TITRATE IV Last administered on 02/21/19 05:56; Admin Dose 18.75 MLS/HR; Start 02/18/19 at 00:30 Aspirin (Aspirin) 81 mg DAILY NGT Last administered on 02/23/19 08:12; Admin Dose 81 MG; Start 02/18/19 at 10:00 Lansoprazole (Prevacid) 30 mg DAILY@06 GTB Last administered on 02/23/19 05:16; Admin Dose 30 MG; Start 02/21/19 at 06:00 Hydromorphone HCl (Dilaudid) 0.5 mg Q6H PRN IV SEVERE PAIN LEVEL 7-10 Last administered on 02/23/19 12:28; Admin Dose 0.5 MG; Start 02/22/19 at 16:30 ARTURO AMADOR MD Feb 23, 2019 13:24
[2019-02-23] MEDS: ACETAMINOPHEN 325 MG TAB PO PRN ×2 (15:54→20:54)
--- NOTE | 2019-02-23 17:04 | CONS ---
Consult Date/Type/Reason Admit Date/Time Feb 17, 2019 at 09:30 Initial Consult Date 02/20/19 Type of Consultation: cv Requesting Provider: JAKY ZELAYA MD, [facility] Date/Time of Note DATE: 02/23/19 TIME: 16:58 Subjective Interventional cardiology follow-up progress Subjective: Case discussed with the staff and telemetry was reviewed. Patient was extubated 02/20 Patient denies any left-sided chest pain or pressure to me. She said her breathing is much improved now BP is stable Objective: General: Thin young lady HEENT: NC/AT. pupils are equal. round. NECK: NO JVD. no stridor. CV: RRR. systolic murmur; no gallop or rubs. PULM: no wheezing or rhonchi. GI: SOFT, NT, ND, no rebound or guarding Extremity: trace B/L LE edema. no clubbing. neuro: awake and responds appropriately Psych: calm and pleasant rectal: deferred EKG done February 16 shows sinus tachycardia with differential enlargement Chest x-ray on 02/16/2019 shows:Cardiomegaly with pulmonary vascular congestion. Chest x-ray done 02/20/2019 showed: Mild retrocardiac infiltrate. Objective Vitals Vital Signs Date Temp Pulse Resp B/P (MAP) Pulse Ox O2 O2 Flow FiO2 Time Delivery Rate 02/23/19 64 16:29 02/23/19 97.5 18 137/99 95 15:28 (112) 02/23/19 Room Air 12:37 02/22/19 21 20:36 02/22/19 2.0 18:22 Intake and Output 02/22/19 02/22/19 02/23/19 1515:00 23:00 07:00 IntakeIntake Total 225 ml 60 ml 240 ml OutputOutput Total 3300 ml BalanceBalance -3075 ml 60 ml 240 ml Results/Medications Result Diagram: 02/23/19 0527 02/23/19 0527 Results 24 hrs Laboratory Tests Test 02/23/19 05:27 White Blood Count 9.0 Red Blood Count 3.43 #L Hemoglobin 10.2 #L Hematocrit 34.3 #L Mean Corpuscular Volume 100.0 Mean Corpuscular Hemoglobin 29.7 Mean Corpuscular Hemoglobin Concent 29.7 L Red Cell Distribution Width 16.5 H Platelet Count 140 # Mean Platelet Volume 12.8 H Immature Granulocytes % 1.200 H Neutrophils % 58.5 Lymphocytes % 22.3 Monocytes % 13.8 H Eosinophils % 3.6 Basophils % 0.6 Nucleated Red Blood Cells % 0.8 H Immature Granulocytes # 0.110 H Neutrophils # 5.3 Lymphocytes # 2.0 Monocytes # 1.2 H Eosinophils # 0.3 Basophils # 0.1 Nucleated Red Blood Cells # 0.1 H Sodium Level 143 Potassium Level 4.1 Chloride Level 91 L Carbon Dioxide Level 30 Anion Gap 22 H Blood Urea Nitrogen 50 H Creatinine 4.73 #H Est Glomerular Filtrat Rate mL/min 11 L Glucose Level 100 Calcium Level 11.3 H Home Meds Active Scripts Gentamicin-NS (Gentamicin-NS) 60 Mg/50 Ml Iv.soln., 50 MG IVPB AFTER DIALYSIS, #4 DOSE Prov:FARHAD LEZAMA 02/01/19 Sevelamer Carbonate* (Renvela*) 800 Mg Tablet, 800 MG PO WITH MEALS, #90 TAB 2 Refills Prov:FARHAD LEZAMA 02/01/19 Aspirin* (Aspirin* (EC)) 81 Mg Tablet.dr, 81 MG PO DAILY, #30 TAB 2 Refills otc Prov:LI GIL MD 01/15/19 Clonidine Hcl* (Catapres*) 0.1 Mg Tablet, 0.1 MG PO TID, #90 TAB Prov:VALERIA PETER NP 12/14/18 Carvedilol* (Carvedilol*) 25 Mg Tablet, 50 MG PO Q12, #60 TAB Prov:FARHAD LEZAMA 11/23/18 Diphenhydramine Hcl* (Benadryl*) 25 Mg Cap, 25 MG PO Q6 PRN for ITCHING/RASH, #30 TAB Prov:PASFADY SANTOS 11/16/18 Nifedipine (Procardia Xl) 60 Mg Tab.er.24, 60 MG PO BID for 30 Days, #60 TAB 2 Refills Prov:FARHAD LEZAMA 10/30/18 Sertraline Hcl* (Sertraline Hcl*) 25 Mg Tablet, 25 MG PO DAILY for anxiety, #30 TAB Prov:FARHAD LEZAMA Fabrizio 10/30/18 Hydroxyzine Hcl* (Atarax*) 25 Mg Tab, 50 MG PO Q8H PRN for ITCHING, #30 TAB Prov:FARHAD LEZAMA. 10/30/18 Pantoprazole* (Pantoprazole*) 40 Mg Tablet.dr, 40 MG PO DAILY, #30 TAB 2 Refills Prov:FARHAD LEZAMA. 10/30/18 Reported Medications Temazepam (Restoril) 15 Mg Cap, 15 MG PO QHS PRN for SLEEP for 30 Days 12/21/18 Prednisone* (Prednisone*) 5 Mg Tab, 5 MG PO DAILY, TAB 11/16/18 Mycophenolate Mofetil* (Mycophenolate Mofetil*) 500 Mg Tablet, 1000 MG PO BID, TAB TAKE 2 TABLET BY MOUTH EVERY MORNING AND EVENING 06/30/18 Hydroxychloroquine Sulfate* (Hydroxychloroquine Sulfate*) 200 Mg Tablet, 200 MG PO DAILY, TAB TAKE 1 TAB BY MOUTH EVERY TUESDAY-Tuesday06/30/18 Discontinued Scripts [gentamicin] No Conflict Check, IV for pneumonia pharmacy to dose Prov:FARHAD LEZAMA. 02/01/19 Medications Current Medications IV Flush (NS 3 ml) 3 ml PER PROTOCOL IV ; Start 02/16/19 at 23:30 Ondansetron HCl (Zofran Tab) 4 mg Q6H PRN PO NAUSEA/VOMITING Last administered on 02/23/19at 12:28; Admin Dose 4 MG; Start 02/16/19 at 23:30 Nitroglycerin (Nitroglycerin (Sl Tab) 0.4 Mg) 1 tab Q5M PRN SL .CHEST PAIN; Start 02/16/19 at 23:30 Acetaminophen (Tylenol Tab) 650 mg Q6H PRN PO .PAIN 1-3 OR TEMP Last administered on 02/23/19at 15:54; Admin Dose 650 MG; Start 02/16/19 at 23:30 Carvedilol (Coreg) 50 mg Q12 PO Last administered on 02/17/19at 21:55; Admin Dose 50 MG; Start 02/16/19 at 23:30; Status Hold Clonidine (Catapres) 0.1 mg TID PO Last administered on 02/17/19at 21:55; Admin Dose 0.1 MG; Start 02/17/19 at 09:00; Status Hold Hydroxychloroquine Sulfate (Plaquenil) 200 mg DAILY PO Last administered on 02/23/19 12:28; Admin Dose 200 MG; Start 02/17/19 at 09:00 Mycophenolate Mofetil (Cellcept) 1,000 mg BID PO Last administered on 02/23/19 08:12; Admin Dose 1,000 MG; Start 02/16/19 at 23:30 Nifedipine (Procardia Xl) 60 mg BID PO Last administered on 02/23/19 08:12; Admin Dose 60 MG; Start 02/16/19 at 23:30 Prednisone (Prednisone) 5 mg DAILY PO Last administered on 02/23/19 08:12; Admin Dose 5 MG; Start 02/17/19 at 09:00 Sertraline HCl (Zoloft) 25 mg DAILY PO Last administered on 02/23/19 08:12; Admin Dose 25 MG; Start 02/17/19 at 09:00 Sevelamer Carbonate (Renvela) 0.8 gm WITH MEALS PO Last administered on 02/22/19 16:37; Admin Dose 0.8 GM; Start 02/17/19 at 08:00 Zolpidem Tartrate (Ambien) 5 mg HS PRN PO INSOMNIA Last administered on 02/23/19 00:00; Admin Dose 5 MG; Start 02/17/19 at 12:30 Heparin Sodium (Porcine) (Heparin (5000 Units/1ml)) 5,000 unit Q8 SC Last administered on 02/18/19 06:06; Admin Dose 5,000 UNIT; Start 02/17/19 at 02:00; Status Hold Labetalol HCl (Labetalol) 10 mg Q4 PRN IV SPB>170; Start 02/17/19 at 05:00 Heparin Sodium (Porcine) (Heparin (1000 Units/ml)) 4,000 unit AFTER DIALYSIS CATHETER ; Start 02/17/19 at 05:30 Albumin Human 100 ml @ 100 mls/hr WITH DIALYSIS PRN IV SBP <90 DURING DIALYSIS Last administered on 02/22/19 09:17; Admin Dose 100 MLS/HR; Start 02/17/19 at 05:30 Sodium Chloride (NS) -To prime the dialy... DIRECTED FOR HD PRN IV HD; Start 02/17/19 at 05:30 Midazolam HCl 50 ml @ 1 mls/hr PER PROTOCOL IV Last administered on 02/20/19 23:18; Admin Dose 2 MLS/HR; Start 02/17/19 at 09:30 Fentanyl 100 ml @ 2.5 mls/hr PER PROTOCOL IV Last administered on 02/20/19 19:54; Admin Dose 3 MLS/HR; Start 02/17/19 at 10:30 Phenylephrine HCl 80 mg/Dextrose 250 ml @ 18.75 mls/ hr TITRATE IV Last admi nistered on 02/21/19 05:56; Admin Dose 18.75 MLS/HR; Start 02/18/19 at 00:30 Aspirin (Aspirin) 81 mg DAILY NGT Last administered on 02/23/19 08:12; Admin Dose 81 MG; Start 02/18/19 at 10:00 Lansoprazole (Prevacid) 30 mg DAILY@06 GTB Last administered on 02/23/19 05:16; Admin Dose 30 MG; Start 02/21/19 at 06:00 Hydromorphone HCl (Dilaudid) 0.5 mg Q6H PRN IV SEVERE PAIN LEVEL 7-10 Last administered on 02/23/19 12:28; Admin Dose 0.5 MG; Start 02/22/19 at 16:30 Assessment/Plan Hospital Course (Demo Recall) Acute hypoxemic hypercapnic respiratory failure status post intubation underwent Congestive heart failure/fluid overload: Acute on chronic secondary to fluid overload and probably diastolic heart failure End-stage renal disease on hemodialysis pneumonia History of lupus History of pericardial effusion Anemia Hypertension Recommendation: Antibiotic management as per internal medicine and pulmonary senior financial consultant We will continue to monitor on telemetry O2 SUPPLEMENT Hemodialysis will be continued managed as per renal I will stop Procardia instead place the patient on Coreg to be increased as needed and tolerated Thank you for his referral. We will continue to follow along with you SERGO MUNOZ MD [facility] SERGO MUNOZ MD Feb 23, 2019 17:04
[2019-02-24] VITALS (26 sets, daily range): BP systolic 109–164; BP diastolic 73–120; PULSE 80–97; RESP 17–18
[2019-02-24] MEDS: HYDROmorphONE 0.5 MG/0.5 ML SYG IV PRN ×4 (00:12→18:47)
[2019-02-24] MEDS: ONDANSETRON 4 MG TAB PO PRN ×3 (00:13→20:11)
[2019-02-24] MEDS: ZOLPIDEM 5 MG TAB PO PRN (00:44)
[2019-02-24] MEDS: LANSOPRAZOLE 30 MG CAP GTB SCH (06:36)
[2019-02-24] MEDS: SEVELAMER CARBONATE 0.8 GM PKT PO SCH ×4 (08:00→18:00)
[2019-02-24] MEDS: DIPHENHYDRAMINE 25 MG CAP PO PRN ×2 (08:34→22:05)
[2019-02-24] MEDS: HYDROXYCHLOROQUINE 200 MG TAB PO SCH (08:34)
[2019-02-24] MEDS: predniSONE 5 MG TAB PO SCH (08:36)
[2019-02-24] MEDS: SERTRALINE 50 MG TAB PO SCH (08:36)
[2019-02-24] MEDS: ASPIRIN 81 MG TAB NGT SCH (08:37)
[2019-02-24] MEDS: MYCOPHENOLATE 250 MG CAP PO SCH ×2 (09:22→20:10)
--- NOTE | 2019-02-24 12:00 | PDOCDIS ---
Discharge Instructions CONDITION [id number] Patient Condition: [id number] Stable HOME CARE INSTRUCTIONS: [id number] Diet Instructions: [id number] Low Fat /Cholesterol ACTIVITY: [id number] Activity Restrictions: [id number] Slowly Increase Activity Rest between Activity Avoid heavy lifting FOLLOW UP/APPOINTMENTS Follow-up Plan Please take your medications as prescribed and continue dialysis as recommended and scheduled by your kidney doctor as an outpatient. Please follow-up with your regular doctor in the clinic in the next few days as well. CONSTANCE THOMPSON Feb 24, 2019 12:00
[2019-02-24] MEDS ORDERED: LEVO750T8 PO (12:11)
[2019-02-24] MEDS ORDERED: CARV6.2579 PO (12:14)
--- NOTE | 2019-02-24 12:16 | DS ---
Date/Time of Note Date/Time of Note DATE: 02/24/19 TIME: 12:04 Discharge Summary Admission/Discharge Info Admit Date/Time Feb 17, 2019 at 09:30 Discharge Date/Time Discharge Diagnosis #Respiratory distress: Resolved now - secondary to possible volume overload and flash pulmonary edema along with possible aspiration pneumonia #septic shock-resolved now, likely secondary to aspiration pn eumonitis/pneumonia. #ESRD: Receive dialysis multiple days during this admission. Normally as an outpatient gets dialysis 4 times a week. Renal team and spoke with family about adjustments made to the amount of volume being taken out on dialysis now which has been adjusted. #SLE: Patient has had this for the last 12 years - Continue plaquenil, CellCept, and low-dose p.o. steroids # chronic cachexia and malnutrition: Tolerating diet # chronic anemia: Secondary likely to underlying end-stage renal disease. Hemoglobin stable Patient Condition: Stable Hx of Present Illness 33-year-old female who is well-known to our service with end-stage renal disease and lupus who presented to the emergency department complaining of chest pain. Patient reported that she had chest pain for the last 2 days. She reported that it was pressure-like in 5 out of 10. She denies any fevers or chills or cough. Patient has been admitted multiple times in the past for similar symptoms. She is on hemodialysis approximately 4 times a week. Her recent echocardiogram done earlier this month ejection fraction of approximately 50-55% with a small chronic pericardial effusion. Currently she is on nasal cannula and not in any acute respiratory distress. Hospital Course Patient was admitted and seen by pulmonary, renal and cardiology teams during her hospital stay. She initially had respiratory distress and had to be intubated and sent to the intensive care unit, also with fevers and signs of septic shock and required pressor support. She also received multiple rounds of dialysis during the first few days of admission. Slowly over the course of her hospital stay her septic shock resolved and pressors were weaned off. Her fevers resolved, white blood cell count was normal. Cultures were negative. She was able to be extubated a few days later and transferred out of the intensive care unit. She continued dialysis as regularly scheduled afterwards. Patient was also treated for what was thought to be acute on chronic diastolic heart failure and cardiology team made some adjustments to her cardiac medications. Vital signs remained stable. Again she was able to ambulate at baseline and tolerate diet. She will be discharged home later this evening and improved condition continue dialysis as new adjustments have been made regarding the amount of volume that will be taken off at dialysis by renal team this was discussed with the family and patient as well. See below for full list of discharge medications. Home Meds Active Scripts Sevelamer Carbonate* (Renvela*) 800 Mg Tablet, 800 MG PO WITH MEALS, #90 TAB 2 Refills Prov:LISEJEMMA DiazHannah Malik 02/01/19 Aspirin* (Aspirin* (EC)) 81 Mg Tablet., 81 MG PO DAILY, #30 TAB 2 Refills otc Prov:LI GIL MD 01/15/19 Clonidine Hcl* (Catapres*) 0.1 Mg Tablet, 0.1 MG PO TID, #90 TAB Prov:VALERIA PETER NP 12/14/18 Carvedilol* (Carvedilol*) 25 Mg Tablet, 50 MG PO Q12, #60 TAB Prov:FARHAD LEZAMA . 11/23/18 Diphenhydramine Hcl* (Benadryl*) 25 Mg Cap, 25 MG PO Q6 PRN for ITCHING/RASH, #30 TAB Prov:FADY ADAM F 11/16/18 Nifedipine (Procardia Xl) 60 Mg Tab.er.24, 60 MG PO BID for 30 Days, #60 TAB 2 Refills Prov:JEMMA LEZAMAHannah . 10/30/18 Sertraline Hcl* (Sertraline Hcl*) 25 Mg Tablet, 25 MG PO DAILY for anxiety, #30 TAB Prov:LISEJEMMAHannah . 10/30/18 Hydroxyzine Hcl* (Atarax*) 25 Mg Tab, 50 MG PO Q8H PRN for ITCHING, #30 [facility] 10/[facility]18 Pantoprazole* (Pantoprazole*) 40 Mg Tablet., 40 MG PO DAILY, #30 TAB 2 Refills Prov:LISE,FARHAD . 10/30/18 Reported Medications Temazepam (Restoril) 15 Mg Cap, 15 MG PO QHS PRN for SLEEP for 30 Days 12/21/18 Prednisone* (Prednisone*) 5 Mg Tab, 5 MG PO DAILY, TAB 11/16/18 Mycophenolate Mofetil* (Mycophenolate Mofetil*) 500 Mg Tablet, 1000 MG PO BID, TAB TAKE 2 TABLET BY MOUTH EVERY MORNING AND EVENING 06/30/18 Hydroxychloroquine Sulfate* (Hydroxychloroquine Sulfate*) 200 Mg Tablet, 200 MG PO DAILY, TAB TAKE 1 TAB BY MOUTH EVERY TUESDAY-Tuesday06/30/18 Discontinued Scripts Gentamicin-NS (Gentamicin-NS) 60 Mg/50 Ml Iv.soln., 50 MG IVPB AFTER DIALYSIS, #4 DOSE Prov:FARHAD LEZAMA 02/01/19 Follow-up Plan Please take your medications as prescribed and continue dialysis as recommended and scheduled by your kidney doctor as an outpatient. Please follow-up with your regular doctor in the clinic in the next few days as well. Primary Care Provider Care Physician No Primary Time spent on discharge: > 30 minutes Pending Labs Laboratory Tests Test 02/24/19 05:54 White Blood Count 8.6 10^3/ul (4.8-10.8) Red Blood Count 3.44 10^6/ul (4.20-5.40) Hemoglobin 10.3 g/dl (12.0-16.0) Hematocrit 34.2 % (37.0-47.0) Mean Corpuscular Volume 99.4 fl (82.0-101.0) Mean Corpuscular Hemoglobin 29.9 pg (29.0-33.0) Mean Corpuscular Hemoglobin Concent 30.1 g/dl (32.0-37.0) Red Cell Distribution Width 16.2 % (11.5-14.5) Platelet Count 163 10^3/UL (140-415) Mean Platelet Volume 11.4 fl (7.4-10.4) Immature Granulocytes % 1.000 % (0.001-0.429) Neutrophils % 59.7 % (39.0-77.0) Lymphocytes % 21.9 % (15.0-51.0) Monocytes % 15.1 % (0.0-11.0) Eosinophils % 1.7 % (0.0-7.0) Basophils % 0.6 % (0.0-2.0) Nucleated Red Blood Cells % 0.3 /100WBC (0.0-0.0) Immature Granulocytes # 0.090 10^3/ul (0.0-0.031) Neutrophils # 5.1 10^3/ul (1.6-7.5) Lymphocytes # 1.9 10^3/ul (0.8-2.9) Monocytes # 1.3 10^3/ul (0.3-0.9) Eosinophils # 0.2 10^3/ul (0.0-0.5) Basophils # 0.1 10^3/ul (0.0-0.1) Nucleated Red Blood Cells # 0.0 10^3/ul (0.0-0.0) Sodium Level 139 mmol/L (135-144) Potassium Level 4.8 mmol/L (3.5-5.1) Chloride Level 92 mmol/L (97-110) Carbon Dioxide Level 26 mmol/L (21-31) Anion Gap 21 (5-13) Blood Urea Nitrogen 41 mg/dl (7-20) Creatinine 4.51 mg/dl (0.44-1.00) Est Glomerular Filtrat Rate mL/min 11 mL/min (>60) Glucose Level 102 mg/dl (70-220) Calcium Level 11.2 mg/dl (8.4-10.2) Phosphorus Level 7.7 mg/dl (2.5-4.9) Magnesium Level 2.4 mg/dl (1.7-2.5) CONSTANCE THOMPSON Feb 24, 2019 12:14
--- NOTE | 2019-02-24 14:48 | CONS ---
Consult Date/Type/Reason Admit Date/Time Feb 17, 2019 at 09:30 Initial Consult Date 02/20/19 Type of Consultation: Pulm Requesting Provider: JAKY ZELAYA MD, [facility] Date/Time of Note DATE: 02/24/19 TIME: 14:47 Subjective No events. Afebrile Objective Vitals Vital Signs Date Temp Pulse Resp B/P (MAP) Pulse Ox O2 O2 Flow FiO2 Time Delivery Rate 02/24/19 86 12:16 02/24/19 98.2 18 129/89 98 11:24 (102) 02/24/19 Nasal 2.0 08:45 Cannula 02/22/19 21 20:36 Intake and Output 02/23/19 02/23/19 02/24/19 1515:00 23:00 07:00 IntakeIntake Total 700 ml OutputOutput Total 1700 ml BalanceBalance -1700 ml 700 ml Exam HEENT: Neck supple; no JVD; no LAD CVS: RRR, S1 and S2 CHEST: Clear ABD: Soft, NT, + BS EXT: No c/c/e Results/Medications Result Diagram: 02/24/19 0554 02/24/19 0554 Results 24 hrs Laboratory Tests Test 02/24/19 05:54 White Blood Count 8.6 Red Blood Count 3.44 L Hemoglobin 10.3 L Hematocrit 34.2 L Mean Corpuscular Volume 99.4 Mean Corpuscular Hemoglobin 29.9 Mean Corpuscular Hemoglobin Concent 30.1 L Red Cell Distribution Width 16.2 H Platelet Count 163 Mean Platelet Volume 11.4 H Immature Granulocytes % 1.000 H Neutrophils % 59.7 Lymphocytes % 21.9 Monocytes % 15.1 H Eosinophils % 1.7 Basophils % 0.6 Nucleated Red Blood Cells % 0.3 H Immature Granulocytes # 0.090 H Neutrophils # 5.1 Lymphocytes # 1.9 Monocytes # 1.3 H Eosinophils # 0.2 Basophils # 0.1 Nucleated Red Blood Cells # 0.0 Sodium Level 139 Potassium Level 4.8 Chloride Level 92 L Carbon Dioxide Level 26 Anion Gap 21 H Blood Urea Nitrogen 41 H Creatinine 4.51 H Est Glomerular Filtrat Rate mL/min 11 L Glucose Level 102 Calcium Level 11.2 H Phosphorus Level 7.7 H Magnesium Level 2.4 Home Meds Active Scripts Carvedilol* (Carvedilol*) 6.25 Mg Tablet, 6.25 MG PO BID, #60 TAB 2 Refills Prov:CONSTANCE THOMPSON S. 02/24/19 Levofloxacin* (Levofloxacin*) 750 Mg Tablet, 750 MG PO DAILY for 5 Days, TAB Prov:CHRISTACONSTANCE S. 02/24/19 Sevelamer Carbonate* (Renvela*) 800 Mg Tablet, 800 MG PO WITH MEALS, #90 TAB 2 Refills Prov:FARHAD LEZAMA 02/01/19 Aspirin* (Aspirin* (EC)) 81 Mg Tablet., 81 MG PO DAILY, #30 TAB 2 Refills otc Prov:LI GIL MD 01/15/19 Clonidine Hcl* (Catapres*) 0.1 Mg Tablet, 0.1 MG PO TID, #90 TAB Prov:VALERIA PETER NP 12/14/18 Diphenhydramine Hcl* (Benadryl*) 25 Mg Cap, 25 MG PO Q6 PRN for ITCHING/RASH, #30 TAB Prov:FADY ADAM 11/16/18 Sertraline Hcl* (Sertraline Hcl*) 25 Mg Tablet, 25 MG PO DAILY for anxiety, #30 TAB Prov:FARHAD LEZAMA 10/30/18 Hydroxyzine Hcl* (Atarax*) 25 Mg Tab, 50 MG PO Q8H PRN for ITCHING, #30 TAB Prov:FARHAD LEZAMA. 10/30/18 Pantoprazole* (Pantoprazole*) 40 Mg Tablet., 40 MG PO DAILY, #30 TAB 2 Refills Prov:FARHAD LEZAMA 10/30/18 Reported Medications Temazepam (Restoril) 15 Mg Cap, 15 MG PO QHS PRN for SLEEP for 30 Days 12/21/18 Prednisone* (Prednisone*) 5 Mg Tab, 5 MG PO DAILY, TAB 11/16/18 Mycophenolate Mofetil* (Mycophenolate Mofetil*) 500 Mg Tablet, 1000 MG PO BID, TAB TAKE 2 TABLET BY MOUTH EVERY MORNING AND EVENING 06/30/18 Hydroxychloroquine Sulfate* (Hydroxychloroquine Sulfate*) 200 Mg Tablet, 200 MG PO DAILY, TAB TAKE 1 TAB BY MOUTH EVERY TUESDAY-Tuesday06/30/18 Discontinued Scripts Gentamicin-NS (Gentamicin-NS) 60 Mg/50 Ml Iv.soln., 50 MG IVPB AFTER DIALYSIS, #4 DOSE Prov:FARHAD LEZAMA. 02/01/19 Carvedilol* (Carvedilol*) 25 Mg Tablet, 50 MG PO Q12, #60 TAB Prov:FARHAD LEZAMA. 11/23/18 Nifedipine (Procardia Xl) 60 Mg Tab.er.24, 60 MG PO BID for 30 Days, #60 TAB 2 Refills Prov:FARHAD LEZAMA. 10/30/18 Medications Current Medications IV Flush (NS 3 ml) 3 ml PER PROTOCOL IV ; Start 02/16/19 at 23:30 Ondansetron HCl (Zofran Tab) 4 mg Q6H PRN PO NAUSEA/VOMITING Last administered on 02/24/19 06:37; Admin Dose 4 MG; Start 02/16/19 at 23:30 Nitroglycerin (Nitroglycerin (Sl Tab) 0.4 Mg) 1 tab Q5M PRN SL .CHEST PAIN; Start 02/16/19 at 23:30 Acetaminophen (Tylenol Tab) 650 mg Q6H PRN PO .PAIN 1-3 OR TEMP Last administered on 02/23/19at 20:54; Admin Dose 650 MG; Start 02/16/19 at 23:30 Clonidine (Catapres) 0.1 mg TID PO Last administered on 02/17/19at 21:55; Admin Dose 0.1 MG; Start 02/17/19 at 09:00; Status Hold Hydroxychloroquine Sulfate (Plaquenil) 200 mg DAILY PO Last administered on 02/24/19 08:34; Admin Dose 200 MG; Start 02/17/19 at 09:00 Mycophenolate Mofetil (Cellcept) 1,000 mg BID PO Last administered on 02/24/19 09:22; Admin Dose 1,000 MG; Start 02/16/19 at 23:30 Prednisone (Prednisone) 5 mg DAILY PO Last administered on 02/24/19 08:36; Admin Dose 5 MG; Start 02/17/19 at 09:00 Sertraline HCl (Zoloft) 25 mg DAILY PO Last administered on 02/24/19 08:36; Admin Dose 25 MG; Start 02/17/19 at 09:00 Sevelamer Carbonate (Renvela) 0.8 gm WITH MEALS PO Last administered on 02/24/19 12:03; Admin Dose 0.8 GM; Start 02/17/19 at 08:00 Zolpidem Tartrate (Ambien) 5 mg HS PRN PO INSOMNIA Last administered on 00:44; Admin Dose 5 MG; Start 02/17/19 at 12:30 Heparin Sodium (Porcine) (Heparin (5000 Units/1ml)) 5,000 unit Q8 SC Last administered on 02/18/19 06:06; Admin Dose 5,000 UNIT; Start 02/17/19 at 02:00; Status Hold Labetalol HCl (Labetalol) 10 mg Q4 PRN IV SPB>170; Start 02/17/19 at 05:00 Heparin Sodium (Porcine) (Heparin (1000 Units/ml)) 4,000 unit AFTER DIALYSIS CATHETER ; Start 02/17/19 at 05:30 Albumin Human 100 ml @ 100 mls/hr WITH DIALYSIS PRN IV SBP <90 DURING DIALYSIS Last administered on 02/22/19 09:17; Admin Dose 100 MLS/HR; Start 02/17/19 at 05:30 Sodium Chloride (NS) -To prime the dialy... DIRECTED FOR HD PRN IV HD; Start 02/17/19 at 05:30 Midazolam HCl 50 ml @ 1 mls/hr PER PROTOCOL IV Last administered on 02/20/19 23:18; Admin Dose 2 MLS/HR; Start 02/17/19 at 09:30 Fentanyl 100 ml @ 2.5 mls/hr PER PROTOCOL IV Last administered on 02/20/19 19:54; Admin Dose 3 MLS/HR; Start 02/17/19 at 10:30 Phenylephrine HCl 80 mg/Dextrose 250 ml @ 18.75 mls/ hr TITRATE IV Last administered on 02/21/19 05:56; Admin Dose 18.75 MLS/HR; Start 02/18/19 at 00:30 Aspirin (Aspirin) 81 mg DAILY NGT Last administered on 02/24/19 08:37; Admin Dose 81 MG; Start 02/18/19 at 10:00 Lansoprazole (Prevacid) 30 mg DAILY@06 GTB Last administered on 02/24/19 06:36; Admin Dose 30 MG; Start 02/21/19 at 06:00 Hydromorphone HCl (Dilaudid) 0.5 mg Q6H PRN IV SEVERE PAIN LEVEL 7-10 Last administered on 02/24/19at 12:41; Admin Dose 0.5 MG; Start 02/22/19 at 16:30 Carvedilol (Coreg) 6.25 mg BID PO Last administered on 02/23/19at 20:53; Admin Dose 6.25 MG; Start 02/23/19 at 21:00 Diphenhydramine HCl (Benadryl) 25 mg Q6H PRN PO ITCHING Last administered on 02/24/19at 08:34; Admin Dose 25 MG; Start 02/24/19 at 03:00; Stop 02/25/19 at 02:37 Assessment/Plan Assessment/Plan (Daily) IMP: 1. Acute hypoxemic respiratory failure, likely secondary to volume overload. Probable component of aspiration pneumonia also.Now extubated. 2. End-stage renal failure on hemodialysis. 3. Systemic lupus erythematosus with lupus nephritis. 4. Encephalopathy, toxic metabolic secondary to above. 5. Septic shock possible aspiration pneumonitis RECS: 1. Aspiration precautions. 2. Continue hemodialysis for volume removal 3. Adequate sedation and pain control. 4. DVT and GI prophylaxis. 5. Broad-spectrum antibiotic coverage consider de-escalation of antibiotics ERIC CARBONE MD Feb 24, 2019 14:48
--- NOTE | 2019-02-24 16:13 | CONS ---
Consult Date/Type/Reason Admit Date/Time Feb 17, 2019 at 09:30 Initial Consult Date 02/20/19 Type of Consultation: Pulm Requesting Provider: JAKY ZELAYA MD, [facility] Date/Time of Note DATE: 02/24/19 TIME: 16:12 Subjective Interventional cardiology follow-up progress Subjective: Case discussed with the staff and telemetry was reviewed. Patient was extubated 02/20 Patient denies any left-sided chest pain or pressure to me. She said her breathing is much improved now BP is stable now pt is on HD now Objective: General: Thin young lady HEENT: NC/AT. pupils are equal. round. NECK: NO JVD. no stridor. CV: RRR. systolic murmur; no gallop or rubs. PULM: no wheezing or rhonchi. GI: SOFT, NT, ND, no rebound or guarding Extremity: trace B/L LE edema. no clubbing. neuro: awake and responds appropriately Psych: calm and pleasant rectal: deferred EKG done February 16 shows sinus tachycardia with differential enlargement Chest x-ray on 02/16/2019 shows:Cardiomegaly with pulmonary vascular congestion. Chest x-ray done 02/20/2019 showed: Mild retrocardiac infiltrate. Objective Vitals Vital Signs Date Temp Pulse Resp B/P (MAP) Pulse Ox O2 O2 Flow FiO2 Time Delivery Rate 02/24/19 87 17 124/83 98 Room Air 15:31 (97) 02/24/19 98.2 15:23 02/24/19 2.0 08:45 02/22/19 21 20:36 Intake and Output 02/23/19 02/23/19 02/24/19 1515:00 23:00 07:00 IntakeIntake Total 700 ml OutputOutput Total 1700 ml BalanceBalance -1700 ml 700 ml Results/Medications Result Diagram: 02/24/19 0554 02/24/19 0554 Results 24 hrs Laboratory Tests Test 02/24/19 05:54 White Blood Count 8.6 Red Blood Count 3.44 L Hemoglobin 10.3 L Hematocrit 34.2 L Mean Corpuscular Volume 99.4 Mean Corpuscular Hemoglobin 29.9 Mean Corpuscular Hemoglobin Concent 30.1 L Red Cell Distribution Width 16.2 H Platelet Count 163 Mean Platelet Volume 11.4 H Immature Granulocytes % 1.000 H Neutrophils % 59.7 Lymphocytes % 21.9 Monocytes % 15.1 H Eosinophils % 1.7 Basophils % 0.6 Nucleated Red Blood Cells % 0.3 H Immature Granulocytes # 0.090 H Neutrophils # 5.1 Lymphocytes # 1.9 Monocytes # 1.3 H Eosinophils # 0.2 Basophils # 0.1 Nucleated Red Blood Cells # 0.0 Sodium Level 139 Potassium Level 4.8 Chloride Level 92 L Carbon Dioxide Level 26 Anion Gap 21 H Blood Urea Nitrogen 41 H Creatinine 4.51 H Est Glomerular Filtrat Rate mL/min 11 L Glucose Level 102 Calcium Level 11.2 H Phosphorus Level 7.7 H Magnesium Level 2.4 Home Meds Active Scripts Carvedilol* (Carvedilol*) 6.25 Mg Tablet, 6.25 MG PO BID, #60 TAB 2 Refills Prov:CONSTANCE THOMPSON S. 02/24/19 Levofloxacin* (Levofloxacin*) 750 Mg Tablet, 750 MG PO DAILY for 5 Days, TAB Prov:CONSTANCE THOMPSON S. 02/24/19 Sevelamer Carbonate* (Renvela*) 800 Mg Tablet, 800 MG PO WITH MEALS, #90 TAB 2 Refills Prov:FARHAD LEZAMA 02/01/19 Aspirin* (Aspirin* (EC)) 81 Mg Tablet., 81 MG PO DAILY, #30 TAB 2 Refills otc Prov:LI GIL MD 01/15/19 Clonidine Hcl* (Catapres*) 0.1 Mg Tablet, 0.1 MG PO TID, #90 TAB Prov:VALERIA PETER NP 12/14/18 Diphenhydramine Hcl* (Benadryl*) 25 Mg Cap, 25 MG PO Q6 PRN for ITCHING/RASH, #30 TAB Prov:FADY ADAM 11/16/18 Sertraline Hcl* (Sertraline Hcl*) 25 Mg Tablet, 25 MG PO DAILY for anxiety, #30 TAB Prov:FARHAD LEZAMA 10/30/18 Hydroxyzine Hcl* (Atarax*) 25 Mg Tab, 50 MG PO Q8H PRN for ITCHING, #30 TAB Prov:FARHAD LEZAMA 10/30/18 Pantoprazole* (Pantoprazole*) 40 Mg Tablet.dr, 40 MG PO DAILY, #30 TAB 2 Refills Prov:FARHAD LEZAMA. 10/30/18 Reported Medications Temazepam (Restoril) 15 Mg Cap, 15 MG PO QHS PRN for SLEEP for 30 Days 12/21/18 Prednisone* (Prednisone*) 5 Mg Tab, 5 MG PO DAILY, TAB 11/16/18 Mycophenolate Mofetil* (Mycophenolate Mofetil*) 500 Mg Tablet, 1000 MG PO BID, TAB TAKE 2 TABLET BY MOUTH EVERY MORNING AND EVENING 06/30/18 Hydroxychloroquine Sulfate* (Hydroxychloroquine Sulfate*) 200 Mg Tablet, 200 MG PO DAILY, TAB TAKE 1 TAB BY MOUTH EVERY TUESDAY-Tuesday06/30/18 Discontinued Scripts Gentamicin-NS (Gentamicin-NS) 60 Mg/50 Ml Iv.soln., 50 MG IVPB AFTER DIALYSIS, #4 DOSE Prov:FARHAD LEZAMAFabrizio 02/01/19 Carvedilol* (Carvedilol*) 25 Mg Tablet, 50 MG PO Q12, #60 TAB Prov:FARHAD LEZAMA. 11/23/18 Nifedipine (Procardia Xl) 60 Mg Tab.er.24, 60 MG PO BID for 30 Days, #60 TAB 2 Refills Prov:FARHAD LEZAMA. 10/30/18 Medications Current Medications IV Flush (NS 3 ml) 3 ml PER PROTOCOL IV ; Start 02/16/19 at 23:30 Ondansetron HCl (Zofran Tab) 4 mg Q6H PRN PO NAUSEA/VOMITING Last administered on 02/24/19at 06:37; Admin Dose 4 MG; Start 02/16/19 at 23:30 Nitroglycerin (Nitroglycerin (Sl Tab) 0.4 Mg) 1 tab Q5M PRN SL .CHEST PAIN; Start 02/16/19 at 23:30 Acetaminophen (Tylenol Tab) 650 mg Q6H PRN PO .PAIN 1-3 OR TEMP Last administered on 02/23/19at 20:54; Admin Dose 650 MG; Start 02/16/19 at 23:30 Clonidine (Catapres) 0.1 mg TID PO Last administered on 02/17/19at 21:55; Admin Dose 0.1 MG; Start 02/17/19 at 09:00; Status Hold Hydroxychloroquine Sulfate (Plaquenil) 200 mg DAILY PO Last administered on 02/24/19 08:34; Admin Dose 200 MG; Start 02/17/19 at 09:00 Mycophenolate Mofetil (Cellcept) 1,000 mg BID PO Last administered on 02/24/19 09:22; Admin Dose 1,000 MG; Start 02/16/19 at 23:30 Prednisone (Prednisone) 5 mg DAILY PO Last administered on 02/24/19 08:36; Admin Dose 5 MG; Start 02/17/19 at 09:00 Sertraline HCl (Zoloft) 25 mg DAILY PO Last administered on 02/24/19 08:36; Admin Dose 25 MG; Start 02/17/19 at 09:00 Sevelamer Carbonate (Renvela) 0.8 gm WITH MEALS PO Last administered on 02/24/19 12:03; Admin Dose 0.8 GM; Start 02/17/19 at 08:00 Zolpidem Tartrate (Ambien) 5 mg HS PRN PO INSOMNIA Last administered on 02/24/19 00:44; Admin Dose 5 MG; Start 02/17/19 at 12:30 Heparin Sodium (Porcine) (Heparin (5000 Units/1ml)) 5,000 unit Q8 SC Last administered on 02/18/19 06:06; Admin Dose 5,000 UNIT; Start 02/17/19 at 02:00; Status Hold Labetalol HCl (Labetalol) 10 mg Q4 PRN IV SPB>170; Start 02/17/19 at 05:00 Heparin Sodium (Porcine) (Heparin (1000 Units/ml)) 4,000 unit AFTER DIALYSIS CATHETER ; Start 02/17/19 at 05:30 Albumin Human 100 ml @ 100 mls/hr WITH DIALYSIS PRN IV SBP <90 DURING DIALYSIS Last administered on 02/22/19 09:17; Admin Dose 100 MLS/HR; Start 02/17/19 at 05:30 Sodium Chloride (NS) -To prime the dialy... DIRECTED FOR HD PRN IV HD; Start 02/17/19 at 05:30 Midazolam HCl 50 ml @ 1 mls/hr PER PROTOCOL IV Last administered on 02/20/19 23:18; Admin Dose 2 MLS/HR; Start 02/17/19 at 09:30 Fentanyl 100 ml @ 2.5 mls/hr PER PROTOCOL IV Last administered on 02/20/19 19:54; Admin Dose 3 MLS/HR; Start 02/17/19 at 10:30 Phenylephrine HCl 80 mg/Dextrose 250 ml @ 18.75 mls/ hr TITRATE IV Last administered on 02/21/19 05:56; Admin Dose 18.75 MLS/HR; Start 02/18/19 at 00:30 Aspirin (Aspirin) 81 mg DAILY NGT Last administered on 02/24/19 08:37; Admin Dose 81 MG; Start 02/18/19 at 10:00 Lansoprazole (Prevacid) 30 mg DAILY@06 GTB Last administered on 02/24/19 06:36; Admin Dose 30 MG; Start 02/21/19 at 06:00 Hydromorphone HCl (Dilaudid) 0.5 mg Q6H PRN IV SEVERE PAIN LEVEL 7-10 Last administered on 02/24/19 12:41; Admin Dose 0.5 MG; Start 02/22/19 at 16:30 Carvedilol (Coreg) 6.25 mg BID PO Last administered on 02/23/19 20:53; Admin Dose 6.25 MG; Start 02/23/19 at 21:00 Diphenhydramine HCl (Benadryl) 25 mg Q6H PRN PO ITCHING Last administered on 02/24/19 08:34; Admin Dose 25 MG; Start 02/24/19 at 03:00; Stop 02/25/19 at 02:37 Assessment/Plan Hospital Course (Demo Recall) s/p respiratory failure Congestive heart failure/fluid overload: Acute on chronic secondary to fluid overload and probably diastolic heart failure: improved now End-stage renal disease on hemodialysis pneumonia History of lupus History of pericardial effusion Anemia Hypertension Recommendation: Antibiotic management as per internal medicine and pulmonary partner management consultant We will continue to monitor on telemetry O2 SUPPLEMENT Hemodialysis will be continued managed as per renal off Procardia now but cont Coreg to be increased as needed and tolerated Thank you for his referral. We will continue to follow along with you SERGO MUNOZ MD [facility] SERGO MUNOZ MD Feb 24, 2019 16:13
--- NOTE | 2019-02-24 18:53 | CONS ---
Assessment/Plan Assessment/Plan Assessment/Plan (Daily) 1. acute hypoxic respiratory distress due to acute pulmonary edema 2. ESRD on HD 4 times a week at [place] [facility] schedule 3. Acute chest pain 4. Hyperkalemia 5. h/o Lupus 6. h/o HTN 7. H/o HL 8. H/o seizure disorder Plan: s/p HD today 1.3 L removed pt stable, saturing well, BP stable- will plan for HD tomorrow also then keep her on TTS schedule pt follows at [place] [facility] unit and she gets HD 4 times a week on Tuesday, Tuesday, and Tuesday will follow up Consultation Date/Type/Reason Admit Date/Time Feb 17, 2019 at 09:30 Initial Consult Date 02/17/19 Type of Consult NEPHROLOGY Requesting Provider: JAKY ZELAYA MD, [facility] Date/Time of Note DATE: 02/24/19 TIME: 18:53 Exam/Review of Systems Exam Vitals Vital Signs Date Temp Pulse Resp B/P (MAP) Pulse Ox O2 O2 Flow FiO2 Time Delivery Rate 02/24/19 84 17 134/97 98 Room Air 18:10 (109) 02/24/19 98.2 15:23 02/24/19 2.0 08:45 02/22/19 21 20:36 Intake and Output 02/23/19 02/23/19 02/24/19 1515:00 23:00 07:00 IntakeIntake Total 700 ml OutputOutput Total 1700 ml BalanceBalance -1700 ml 700 ml Results Result Diagram: 02/24/19 0554 02/24/19 0554 Results 24hrs Laboratory Tests Test 02/24/19 05:54 White Blood Count 8.6 Red Blood Count 3.44 L Hemoglobin 10.3 L Hematocrit 34.2 L Mean Corpuscular Volume 99.4 Mean Corpuscular Hemoglobin 29.9 Mean Corpuscular Hemoglobin Concent 30.1 L Red Cell Distribution Width 16.2 H Platelet Count 163 Mean Platelet Volume 11.4 H Immature Granulocytes % 1.000 H Neutrophils % 59.7 Lymphocytes % 21.9 Monocytes % 15.1 H Eosinophils % 1.7 Basophils % 0.6 Nucleated Red Blood Cells % 0.3 H Immature Granulocytes # 0.090 H Neutrophils # 5.1 Lymphocytes # 1.9 Monocytes # 1.3 H Eosinophils # 0.2 Basophils # 0.1 Nucleated Red Blood Cells # 0.0 Sodium Level 139 Potassium Level 4.8 Chloride Level 92 L Carbon Dioxide Level 26 Anion Gap 21 H Blood Urea Nitrogen 41 H Creatinine 4.51 H Est Glomerular Filtrat Rate mL/min 11 L Glucose Level 102 Calcium Level 11.2 H Phosphorus Level 7.7 H Magnesium Level 2.4 Medications Medication Current Medications IV Flush (NS 3 ml) 3 ml PER PROTOCOL IV ; Start 02/16/19 at 23:30 Ondansetron HCl (Zofran Tab) 4 mg Q6H PRN PO NAUSEA/VOMITING Last administered on 02/24/19 06:37; Admin Dose 4 MG; Start 02/16/19 at 23:30 Nitroglycerin (Nitroglycerin (Sl Tab) 0.4 Mg) 1 tab Q5M PRN SL .CHEST PAIN; Start 02/16/19 at 23:30 Acetaminophen (Tylenol Tab) 650 mg Q6H PRN PO .PAIN 1-3 OR TEMP Last administered on 02/23/19 20:54; Admin Dose 650 MG; Start 02/16/19 at 23:30 Clonidine (Catapres) 0.1 mg TID PO Last administered on 02/17/19 21:55; Admin Dose 0.1 MG; Start 02/17/19 at 09:00; Status Hold Hydroxychloroquine Sulfate (Plaquenil) 200 mg DAILY PO Last administered on 02/24/19 08:34; Admin Dose 200 MG; Start 02/17/19 at 09:00 Mycophenolate Mofetil (Cellcept) 1,000 mg BID PO Last administered on 02/24/19 09:22; Admin Dose 1,000 MG; Start 02/16/19 at 23:30 Prednisone (Prednisone) 5 mg DAILY PO Last administered on 02/24/19 08:36; Admin Dose 5 MG; Start 02/17/19 at 09:00 Sertraline HCl (Zoloft) 25 mg DAILY PO Last administered on 02/24/19 08:36; Admin Dose 25 MG; Start 02/17/19 at 09:00 Sevelamer Carbonate (Renvela) 0.8 gm WITH MEALS PO Last administered on 02/24/19 12:03; Admin Dose 0.8 GM; Start 02/17/19 at 08:00 Zolpidem Tartrate (Ambien) 5 mg HS PRN PO INSOMNIA Last administered on 02/24/19at 00:44; Admin Dose 5 MG; Start 02/17/19 at 12:30 Heparin Sodium (Porcine) (Heparin (5000 Units/1ml)) 5,000 unit Q8 SC Last administered on 02/18/19at 06:06; Admin Dose 5,000 UNIT; Start 02/17/19 at 02:00; Status Hold Labetalol HCl (Labetalol) 10 mg Q4 PRN IV SPB>170; Start 02/17/19 at 05:00 Heparin Sodium (Porcine) (Heparin (1000 Units/ml)) 4,000 unit AFTER DIALYSIS CATHETER ; Start 02/17/19 at 05:30 Albumin Human 100 ml @ 100 mls/hr WITH DIALYSIS PRN IV SBP <90 DURING DIALYSIS Last administered on 02/22/19at 09:17; Admin Dose 100 MLS/HR; Start 02/17/19 at 05:30 Sodium Chloride (NS) -To prime the dialy... DIRECTED FOR HD PRN IV HD; Start 02/17/19 at 05:30 Midazolam HCl 50 ml @ 1 mls/hr PER PROTOCOL IV Last administered on 02/20/19 23:18; Admin Dose 2 MLS/HR; Start 02/17/19 at 09:30 Fentanyl 100 ml @ 2.5 mls/hr PER PROTOCOL IV Last administered on 02/20/19at 19:54; Admin Dose 3 MLS/HR; Start 02/17/19 at 10:30 Phenylephrine HCl 80 mg/Dextrose 250 ml @ 18.75 mls/ hr TITRATE IV Last administered on 02/21/19at 05:56; Admin Dose 18.75 MLS/HR; Start 02/18/19 at 00:30 Aspirin (Aspirin) 81 mg DAILY NGT Last administered on 02/24/19at 08:37; Admin Dose 81 MG; Start 02/18/19 at 10:00 Lansoprazole (Prevacid) 30 mg DAILY@06 GTB Last administered on 02/24/19at 06:36; Admin Dose 30 MG; Start 02/21/19 at 06:00 Hydromorphone HCl (Dilaudid) 0.5 mg Q6H PRN IV SEVERE PAIN LEVEL 7-10 Last administered on 02/24/19at 18:47; Admin Dose 0.5 MG; Start 02/22/19 at 16:30 Carvedilol (Coreg) 6.25 mg BID PO Last administered on 02/23/19at 20:53; Admin Dose 6.25 MG; Start 02/23/19 at 21:00 Diphenhydramine HCl (Benadryl) 25 mg Q6H PRN PO ITCHING Last administered on 02/24/19at 08:34; Admin Dose 25 MG; Start 02/24/19 at 03:00; Stop 02/25/19 at 02:37 ARTURO AMADOR MD Feb 24, 2019 18:53
[2019-02-25] VITALS: BP 156/101; PULSE 77; RESP 18
[2019-02-25 00:09] VITALS: PULSE 77
[2019-02-25] MEDS: HYDROmorphONE 0.5 MG/0.5 ML SYG IV PRN ×2 (00:31→06:16)
[2019-02-25 04:00] VITALS: BP 142/94; PULSE 86; RESP 18
[2019-02-25 04:30] VITALS: PULSE 89
[2019-02-25] MEDS: LANSOPRAZOLE 30 MG CAP GTB SCH (06:14)
[2019-02-25 07:42] VITALS: BP 137/90; PULSE 85; RESP 18
[2019-02-25 08:08] VITALS: PULSE 84
[2019-02-25] MEDS: HYDROXYCHLOROQUINE 200 MG TAB PO SCH (08:21)
[2019-02-25] MEDS: ASPIRIN 81 MG TAB NGT SCH (08:21)
[2019-02-25] MEDS: SEVELAMER CARBONATE 0.8 GM PKT PO SCH (08:21)
[2019-02-25] MEDS: predniSONE 5 MG TAB PO SCH (08:22)
[2019-02-25] MEDS: SERTRALINE 50 MG TAB PO SCH (08:23)
--- NOTE | 2019-02-25 09:15 | DS ---
Date/Time of Note Date/Time of Note DATE: 02/25/19 TIME: 09:14 Discharge Summary Admission/Discharge Info Admit Date/Time Feb 17, 2019 at 09:30 Discharge Date/Time Discharge Diagnosis #Respiratory distress: Resolved now - secondary to possible volume overload and flash pulmonary edema along with possible aspiration pneumonia #septic shock-resolved now, likely secondary to aspiration pn eumonitis/pneumonia. #ESRD: Receive dialysis multiple days during this admission. Normally as an outpatient gets dialysis 4 times a week. Renal team and spoke with family about adjustments made to the amount of volume being taken out on dialysis now which has been adjusted. #SLE: Patient has had this for the last 12 years - Continue plaquenil, CellCept, and low-dose p.o. steroids # chronic cachexia and malnutrition: Tolerating diet # chronic anemia: Secondary likely to underlying end-stage renal disease. Hemoglobin stable Patient Condition: Stable Hx of Present Illness 33-year-old female who is well-known to our service with end-stage renal disease and lupus who presented to the emergency department complaining of chest pain. Patient reported that she had chest pain for the last 2 days. She reported that it was pressure-like in 5 out of 10. She denies any fevers or chills or cough. Patient has been admitted multiple times in the past for similar symptoms. She is on hemodialysis approximately 4 times a week. Her recent echocardiogram done earlier this month ejection fraction of approximately 50-55% with a small chronic pericardial effusion. Currently she is on nasal cannula and not in any acute respiratory distress. Hospital Course Patient was admitted and seen by pulmonary, renal and cardiology teams during her hospital stay. She initially had respiratory distress and had to be intubated and sent to the intensive care unit, also with fevers and signs of septic shock and required pressor support. She also received multiple rounds of dialysis during the first few days of admission. Slowly over the course of her hospital stay her septic shock resolved and pressors were weaned off. Her fevers resolved, white blood cell count was normal. Cultures were negative. She was able to be extubated a few days later and transferred out of the intensive care unit. She continued dialysis as regularly scheduled afterwards. Patient was also treated for what was thought to be acute on chronic diastolic heart failure and cardiology team made some adjustments to her cardiac medications. Vital signs remained stable. Again she was able to ambulate at baseline and tolerate diet. Patient stayed overnight on the night of February 24, 2019 because of some dizziness symptoms and slightly elevated blood pressure, these have resolved now today, and she will be discharged home today in improved condition -patient will continue dialysis as new adjustments have been made regarding the amount of volume that will be taken off at dialysis by renal team this was discussed with the family and patient as well. See below for full list of discharge medications. Home Meds Active Scripts Carvedilol* (Carvedilol*) 6.25 Mg Tablet, 6.25 MG PO BID, #60 TAB 2 Refills Prov:CONSTANCE THOMPSON S. 02/24/19 Levofloxacin* (Levofloxacin*) 750 Mg Tablet, 750 MG PO DAILY for 5 Days, TAB Prov:CONSTANCE THOMPSON S. 02/24/19 Sevelamer Carbonate* (Renvela*) 800 Mg Tablet, 800 MG PO WITH MEALS, #90 TAB 2 Refills Prov:FARHAD LEZAMA M. 02/01/19 Aspirin* (Aspirin* (EC)) 81 Mg Tablet., 81 MG PO DAILY, #30 TAB 2 Refills otc Prov:LI GIL MD 01/15/19 Clonidine Hcl* (Catapres*) 0.1 Mg Tablet, 0.1 MG PO TID, #90 TAB Prov:VALERIA PETER NP 12/14/18 Diphenhydramine Hcl* (Benadryl*) 25 Mg Cap, 25 MG PO Q6 PRN for ITCHING/RASH, #30 TAB Prov:FADY ADAM 11/16/18 Sertraline Hcl* (Sertraline Hcl*) 25 Mg Tablet, 25 MG PO DAILY for anxiety, #30 TAB Prov:FARHAD LEZAMA M. 10/30/18 Hydroxyzine Hcl* (Atarax*) 25 Mg Tab, 50 MG PO Q8H PRN for ITCHING, #30 TAB Prov:FARHAD LEZAMA M. 10/30/18 Pantoprazole* (Pantoprazole*) 40 Mg Tablet., 40 MG PO DAILY, #30 TAB 2 Refills Prov:FARHAD LEZAMA M. 10/30/18 Reported Medications Temazepam (Restoril) 15 Mg Cap, 15 MG PO QHS PRN for SLEEP for 30 Days 12/21/18 Prednisone* (Prednisone*) 5 Mg Tab, 5 MG PO DAILY, TAB 11/16/18 Mycophenolate Mofetil* (Mycophenolate Mofetil*) 500 Mg Tablet, 1000 MG PO BID, TAB TAKE 2 TABLET BY MOUTH EVERY MORNING AND EVENING 06/30/18 Hydroxychloroquine Sulfate* (Hydroxychloroquine Sulfate*) 200 Mg Tablet, 200 MG PO DAILY, TAB TAKE 1 TAB BY MOUTH EVERY TUESDAY-Tuesday06/30/18 Discontinued Scripts Gentamicin-NS (Gentamicin-NS) 60 Mg/50 Ml Iv.soln., 50 MG IVPB AFTER DIALYSIS, #4 DOSE Prov:JEMMA LEZAMAHannah TitusFabrizio 02/01/19 Carvedilol* (Carvedilol*) 25 Mg Tablet, 50 MG PO Q12, #60 TAB Prov:ELISABETH LEZAMAPILO Titus. 11/23/18 Nifedipine (Procardia Xl) 60 Mg Tab.er.24, 60 MG PO BID for 30 Days, #60 TAB 2 Refills Prov:ELISABETH LEZAMAPILO Malik 10/30/18 Follow-up Plan Please take your medications as prescribed and continue dialysis as recommended and scheduled by your kidney doctor as an outpatient. Please follow-up with your regular doctor in the clinic in the next few days as well. Primary Care Provider Care Physician No Primary Time spent on discharge: > 30 minutes Pending Labs Laboratory Tests Test 02/25/19 05:29 White Blood Count 11.5 10^3/ul (4.8-10.8) Red Blood Count 3.52 10^6/ul (4.20-5.40) Hemoglobin 10.6 g/dl (12.0-16.0) Hematocrit 34.9 % (37.0-47.0) Mean Corpuscular Volume 99.1 fl (82.0-101.0) Mean Corpuscular Hemoglobin 30.1 pg (29.0-33.0) Mean Corpuscular Hemoglobin Concent 30.4 g/dl (32.0-37.0) Red Cell Distribution Width 16.2 % (11.5-14.5) Platelet Count 203 10^3/UL (140-415) Mean Platelet Volume 12.2 fl (7.4-10.4) Immature Granulocytes % 1.000 % (0.001-0.429) Neutrophils % 67.3 % (39.0-77.0) Lymphocytes % 16.5 % (15.0-51.0) Monocytes % 14.0 % (0.0-11.0) Eosinophils % 0.6 % (0.0-7.0) Basophils % 0.6 % (0.0-2.0) Nucleated Red Blood Cells % 0.0 /100WBC (0.0-0.0) Immature Granulocytes # 0.110 10^3/ul (0.0-0.031) Neutrophils # 7.7 10^3/ul (1.6-7.5) Lymphocytes # 1.9 10^3/ul (0.8-2.9) Monocytes # 1.6 10^3/ul (0.3-0.9) Eosinophils # 0.1 10^3/ul (0.0-0.5) Basophils # 0.1 10^3/ul (0.0-0.1) Nucleated Red Blood Cells # 0.0 10^3/ul (0.0-0.0) Sodium Level 139 mmol/L (135-144) Potassium Level 4.5 mmol/L (3.5-5.1) Chloride Level 91 mmol/L (97-110) Carbon Dioxide Level 29 mmol/L (21-31) Anion Gap 19 (5-13) Blood Urea Nitrogen 29 mg/dl (7-20) Creatinine 3.77 mg/dl (0.44-1.00) Est Glomerular Filtrat Rate mL/min 14 mL/min (>60) Glucose Level 97 mg/dl (70-220) Calcium Level 10.9 mg/dl (8.4-10.2) CONSTANCE THOMPSON Feb 25, 2019 09:15
[2019-02-25] MEDS: MYCOPHENOLATE 250 MG CAP PO SCH (09:30)
[2019-02-25] MEDS: ACETAMINOPHEN 325 MG TAB PO PRN (09:31)
--- NOTE | 2019-02-25 13:23 | CONS ---
Assessment/Plan Assessment/Plan Assessment/Plan (Daily) 1. acute hypoxic respiratory distress due to acute pulmonary edema 2. ESRD on HD 4 times a week at [place] [facility] schedule 3. Acute chest pain 4. Hyperkalemia 5. h/o Lupus 6. h/o HTN 7. H/o HL 8. H/o seizure disorder Plan: s/p HD yesterday 1.5 L removed pt stable, saturing well, BP stable- will plan for HD tomorrow also then keep her on TTS schedule pt follows at [place] [facility] unit and she gets HD 4 times a week on Tuesday, Tuesday, and Tuesday will follow up Consultation Date/Type/Reason Admit Date/Time Feb 17, 2019 at 09:30 Initial Consult Date 02/17/19 Type of Consult NEPHROLOGY Requesting Provider: JAKY ZELAYA MD, [facility] Date/Time of Note DATE: 02/25/19 TIME: 13:22 24 HR Interval Summary Free Text/Dictation pt was seen early in AM, s/p HD 1.5 yesterday L removed, Exam/Review of Systems Exam Vitals Vital Signs Date Temp Pulse Resp B/P (MAP) Pulse Ox O2 O2 Flow FiO2 Time Delivery Rate 02/25/19 84 08:08 02/25/19 Nasal 2.0 07:48 Cannula 02/25/19 98.9 18 137/90 98 07:42 (106) 02/22/19 21 20:36 Intake and Output 02/24/19 02/24/19 02/25/19 1515:00 23:00 07:00 IntakeIntake Total 600 ml 500 ml OutputOutput Total 1900 ml BalanceBalance -1300 ml 500 ml Results Result Diagram: 02/25/19 0529 02/25/19 0529 Results 24hrs Laboratory Tests Test 02/25/19 05:29 White Blood Count 11.5 #H Red Blood Count 3.52 L Hemoglobin 10.6 L Hematocrit 34.9 L Mean Corpuscular Volume 99.1 Mean Corpuscular Hemoglobin 30.1 Mean Corpuscular Hemoglobin Concent 30.4 L Red Cell Distribution Width 16.2 H Platelet Count 203 # Mean Platelet Volume 12.2 H Immature Granulocytes % 1.000 H Neutrophils % 67.3 Lymphocytes % 16.5 Monocytes % 14.0 H Eosinophils % 0.6 Basophils % 0.6 Nucleated Red Blood Cells % 0.0 Immature Granulocytes # 0.110 H Neutrophils # 7.7 H Lymphocytes # 1.9 Monocytes # 1.6 H Eosinophils # 0.1 Basophils # 0.1 Nucleated Red Blood Cells # 0.0 Sodium Level 139 Potassium Level 4.5 Chloride Level 91 L Carbon Dioxide Level 29 Anion Gap 19 H Blood Urea Nitrogen 29 #H Creatinine 3.77 H Est Glomerular Filtrat Rate mL/min 14 L Glucose Level 97 Calcium Level 10.9 H ARTURO AMADOR MD Feb 25, 2019 13:23
--- NOTE | 2019-02-25 15:23 | CONS ---
Consult Date/Type/Reason Admit Date/Time Feb 17, 2019 at 09:30 Initial Consult Date 02/20/19 Type of Consultation: Pulm Requesting Provider: JAKY ZELAYA MD, [facility] [place] Date/Time of Note DATE: 02/25/19 TIME: 15:21 Subjective Being d/c'ed at time of my visit. No SOB. Objective Vitals Vital Signs Date Temp Pulse Resp B/P (MAP) Pulse Ox O2 O2 Flow FiO2 Time Delivery Rate 02/25/19 84 08:08 02/25/19 Nasal 2.0 07:48 Cannula 02/25/19 98.9 18 137/90 98 07:42 (106) 02/22/19 21 20:36 Intake and Output 02/24/19 02/24/19 02/25/19 1515:00 23:00 07:00 IntakeIntake Total 600 ml 500 ml OutputOutput Total 1900 ml BalanceBalance -1300 ml 500 ml Exam HEENT: Neck supple; no JVD; no LAD CVS: RRR, S1 and S2 CHEST: Clear ABD: Soft, NT, + BS EXT: No c/c/e Results/Medications Result Diagram: 02/25/19 0529 02/25/19 0529 Results 24 hrs Laboratory Tests Test 02/25/19 05:29 White Blood Count 11.5 #H Red Blood Count 3.52 L Hemoglobin 10.6 L Hematocrit 34.9 L Mean Corpuscular Volume 99.1 Mean Corpuscular Hemoglobin 30.1 Mean Corpuscular Hemoglobin Concent 30.4 L Red Cell Distribution Width 16.2 H Platelet Count 203 # Mean Platelet Volume 12.2 H Immature Granulocytes % 1.000 H Neutrophils % 67.3 Lymphocytes % 16.5 Monocytes % 14.0 H Eosinophils % 0.6 Basophils % 0.6 Nucleated Red Blood Cells % 0.0 Immature Granulocytes # 0.110 H Neutrophils # 7.7 H Lymphocytes # 1.9 Monocytes # 1.6 H Eosinophils # 0.1 Basophils # 0.1 Nucleated Red Blood Cells # 0.0 Sodium Level 139 Potassium Level 4.5 Chloride Level 91 L Carbon Dioxide Level 29 Anion Gap 19 H Blood Urea Nitrogen 29 #H Creatinine 3.77 H Est Glomerular Filtrat Rate mL/min 14 L Glucose Level 97 Calcium Level 10.9 H Home Meds Active Scripts Carvedilol* (Carvedilol*) 6.25 Mg Tablet, 6.25 MG PO BID, #60 TAB 2 Refills Prov:CONSTANCE THOMPSON S. 02/24/19 Levofloxacin* (Levofloxacin*) 750 Mg Tablet, 750 MG PO DAILY for 5 Days, TAB Prov:DONNACONSTANCE S. 02/24/19 Sevelamer Carbonate* (Renvela*) 800 Mg Tablet, 800 MG PO WITH MEALS, #90 TAB 2 Refills Prov:FARHAD LEZAMA 02/01/19 Aspirin* (Aspirin* (EC)) 81 Mg Tablet., 81 MG PO DAILY, #30 TAB 2 Refills otc Prov:LI GIL MD 01/15/19 Clonidine Hcl* (Catapres*) 0.1 Mg Tablet, 0.1 MG PO TID, #90 TAB Prov:VALERIA PETER NP 12/14/18 Diphenhydramine Hcl* (Benadryl*) 25 Mg Cap, 25 MG PO Q6 PRN for ITCHING/RASH, #30 TAB Prov:FADY ADAM 11/16/18 Sertraline Hcl* (Sertraline Hcl*) 25 Mg Tablet, 25 MG PO DAILY for anxiety, #30 TAB Prov:FARHAD LEZAMA 10/30/18 Hydroxyzine Hcl* (Atarax*) 25 Mg Tab, 50 MG PO Q8H PRN for ITCHING, #30 TAB Prov:FARHAD LEZAMA. 10/30/18 Pantoprazole* (Pantoprazole*) 40 Mg Tablet., 40 MG PO DAILY, #30 TAB 2 Refills Prov:FARHAD LEZAMA 10/30/18 Reported Medications Temazepam (Restoril) 15 Mg Cap, 15 MG PO QHS PRN for SLEEP for 30 Days 12/21/18 Prednisone* (Prednisone*) 5 Mg Tab, 5 MG PO DAILY, TAB 11/16/18 Mycophenolate Mofetil* (Mycophenolate Mofetil*) 500 Mg Tablet, 1000 MG PO BID, TAB TAKE 2 TABLET BY MOUTH EVERY MORNING AND EVENING 06/30/18 Hydroxychloroquine Sulfate* (Hydroxychloroquine Sulfate*) 200 Mg Tablet, 200 MG PO DAILY, TAB TAKE 1 TAB BY MOUTH EVERY TUESDAY-Tuesday06/30/18 Discontinued Scripts Gentamicin-NS (Gentamicin-NS) 60 Mg/50 Ml Iv.soln., 50 MG IVPB AFTER DIALYSIS, #4 DOSE Prov:FARHAD LEZAMA 02/01/19 Carvedilol* (Carvedilol*) 25 Mg Tablet, 50 MG PO Q12, #60 TAB Prov:FARHAD LEZAMA. 11/23/18 Nifedipine (Procardia Xl) 60 Mg Tab.er.24, 60 MG PO BID for 30 Days, #60 TAB 2 Refills Prov:FARHAD LEZAMA. 10/30/18 Assessment/Plan Assessment/Plan (Daily) IMP: 1. s/p Acute hypoxemic respiratory failure, likely secondary to volume overload. Probable component of aspiration pneumonia also.Now extubated. 2. End-stage renal failure on hemodialysis. 3. Systemic lupus erythematosus with lupus nephritis. 4. Encephalopathy, toxic metabolic secondary to above. 5. Septic shock possible aspiration pneumonitis RECS: 1. Aspiration precautions. 2. HD/UF 3. Outpt f/u as per PD ERIC CARBONE MD Feb 25, 2019 15:22
== END 2019-02-25 10:37 | disposition home or self-care (01) | DRG 207 ==
LOC: E/R 19:16 → 6WM 23:07 → ICU 02-17 09:10 → OBSVTOIN 02-17 09:30 → 6WM 02-22 18:45
PROVIDERS: ADMIT Family Medicine; ATTEND Hospitalist
PROC: 5A1955Z Respiratory Ventilation, Greater than 96 Consecutive Hours (ICD-10-PCS; principal; 2019-02-17)
PROC: 0BH17EZ Insertion of Endotracheal Airway into Trachea, Via Natural or Artificial Opening (ICD-10-PCS; 2019-02-17)
PROC: 06HY33Z Insertion of Infusion Device into Lower Vein, Percutaneous Approach (ICD-10-PCS; 2019-02-17)
PROC: 5A1D70Z Performance of Urinary Filtration, Intermittent, Less than 6 Hours Per Day (ICD-10-PCS; 2019-02-17)
DX: J96.01 Acute respiratory failure with hypoxia (principal); N18.6 End stage renal disease; G92 Toxic encephalopathy; J69.0 Pneumonitis due to inhalation of food and vomit; A41.9 Sepsis, unspecified organism; R65.21 Severe sepsis with septic shock; I50.33 Acute on chronic diastolic (congestive) heart failure; E46 Unspecified protein-calorie malnutrition; R64 Cachexia; D61.818 Other pancytopenia; I31.3 Pericardial effusion (noninflammatory); I13.2 Hypertensive heart and chronic kidney disease with heart failure and with stage 5 chronic kidney disease, or end stage renal disease; J96.02 Acute respiratory failure with hypercapnia; D63.1 Anemia in chronic kidney disease; D69.6 Thrombocytopenia, unspecified; E87.70 Fluid overload, unspecified; E87.5 Hyperkalemia; E78.5 Hyperlipidemia, unspecified; E78.00 Pure hypercholesterolemia, unspecified; F32.9 Major depressive disorder, single episode, unspecified; G40.909 Epilepsy, unspecified, not intractable, without status epilepticus; I25.10 Atherosclerotic heart disease of native coronary artery without angina pectoris; M32.14 Glomerular disease in systemic lupus erythematosus; Z68.23 Body mass index [BMI] 23.0-23.9, adult; Z99.2 Dependence on renal dialysis; Z79.82 Long term (current) use of aspirin
CPT/HCPCS: 31500; 36415; 36600; 71045; 80048; 80053; 80076; 80202; 82550; 82553; 82803; 82962; 83605; 83735; 84100; 84484; 85025; 85610; 85730; 86706; 87075; 87081; 87340; 90935; 92526; 92610; 93005; 94002; 94003; 94770; 96374; 96375; 97165; G0378; C9113; J1170; J1644; J2060; J2250; J2270; J2370; J2405; J2543; J3010; J3370; J7070; J7512; J7517; P9047

== ENCOUNTER 2019-05-29 16:05 | Emergency (ER) | payer MEDICARE, OTHER ==
[~2019-05-29] VITALS: Ht 152.4 cm; Wt 47.7 kg
[~2019-05-29 16:05] MED LIST changes: -CARV25TA79 PO; +CARV6.2579 PO; +FURO20TA3 PO; +LEVO750T8 PO; +LORA1TAB PO; +MYCO500T PO; -NIFE60TA2 PO; +NIFE60TA24 PO; +PANT40TA3 PO; -[UNRECOGNIZED DRUG - CODE] IVPB; -gentamicin IV
--- NOTE | 2019-05-29 16:17 | ERD ---
ER Documentation Chief Complaint Chief Complaint The patient is a 33-year-old female, presenting to the ER because of chronic abdominal pain, recurrent around 2 PM today. She finished dialysis around 1 PM today. The abdominal pain is vague and diffuse, no aggravating/relieving factor, denies fever, chills, neck pain, chest pain, dyspnea, vomiting, dysuria, diarrhea. She was admitted recently on June 30, 2018 and had extensive abdominal study including a gallbladder ultrasound and abdomen MRI that were unremarkable. The abdominal pain is not related to meals or bowel movement. She does not smoke nor drink. She has been intubated multiple times. Medical history: h/o pancreatitis, hypertension, h/o CHF, chronic kidney disease on hemodialysis Tuesday and Tuesday since December 2017, SLE. She had history of esophagitis, gastritis, erosive gastritis on the EGD December 2017 Past surgical history: , right chest hemodialysis catheter. ROS All systems reviewed and are negative except as per history of present illness. Medications Home Meds Active Scripts Pantoprazole* (Protonix*) 40 Mg Tablet., 40 MG PO DAILY, #20 TAB Prov:CORNELIUS CLARK MD 05/29/19 Carvedilol* (Carvedilol*) 6.25 Mg Tablet, 6.25 MG PO BID, #60 TAB 2 Refills Prov:CONSTANCE THOMPOSN 02/24/19 Aspirin* (Aspirin* (EC)) 81 Mg Tablet., 81 MG PO DAILY, #30 TAB 2 Refills otc Prov:LI GIL MD 01/15/19 Reported Medications Mycophenolate Mofetil* (Cellcept*) 500 Mg Tablet, 500 MG PO QPM, #60 TAB 05/29/19 Mycophenolate Mofetil* (Cellcept*) 500 Mg Tablet, 1000 MG PO QAM, #120 TAB 05/29/19 Sevelamer Carbonate* (Renvela*) 800 Mg Tablet, 0.8 GM PO WITH MEALS, TAB 05/29/19 Nifedipine* (Afeditab CR*) 60 Mg Tablet.er, 60 MG PO DAILY, #30 TAB.SA 05/29/19 Furosemide* (Furosemide*) 20 Mg Tablet, 20 MG PO DAILY, #60 TAB Q MON,WED,FRI,SUN 05/29/19 Pantoprazole* (Pantoprazole*) 40 Mg Tablet.dr, 40 MG PO AC BREAKFAST DINNER, TAB 05/29/19 Hydroxychloroquine Sulfate* (Hydroxychloroquine Sulfate*) 200 Mg Tablet, 200 MG PO DAILY, TAB Q TUE,TUE,Tue05/29/19 Lorazepam* (Lorazepam*) 1 Mg Tablet, 1 MG PO BID PRN for ANXIETY, #30 TAB 05/29/19 Discontinued Reported Medications Temazepam (Restoril) 15 Mg Cap, 15 MG PO QHS PRN for SLEEP for 30 Days 12/21/18 Prednisone* (Prednisone*) 5 Mg Tab, 5 MG PO DAILY, TAB 11/16/18 Mycophenolate Mofetil* (Mycophenolate Mofetil*) 500 Mg Tablet, 1000 MG PO BID, TAB TAKE 2 TABLET BY MOUTH EVERY MORNING AND EVENING 06/30/18 Hydroxychloroquine Sulfate* (Hydroxychloroquine Sulfate*) 200 Mg Tablet, 200 MG PO DAILY, TAB TAKE 1 TAB BY MOUTH EVERY TUESDAY-Tuesday06/30/18 Discontinued Scripts Levofloxacin* (Levofloxacin*) 750 Mg Tablet, 750 MG PO DAILY for 5 Days, TAB Prov:CONSTANCE THOMPSON 02/24/19 Sevelamer Carbonate* (Renvela*) 800 Mg Tablet, 800 MG PO WITH MEALS, #90 TAB 2 Refills Prov:FARHAD LEZAMA 02/01/19 Clonidine Hcl* (Catapres*) 0.1 Mg Tablet, 0.1 MG PO TID, #90 TAB Prov:VALERIA PETER V. [employer] 12/14/18 Diphenhydramine Hcl* (Benadryl*) 25 Mg Cap, 25 MG PO Q6 PRN for ITCHING/RASH, #30 TAB Prov:FADY ADAM 11/16/18 Sertraline Hcl* (Sertraline Hcl*) 25 Mg Tablet, 25 MG PO DAILY for anxiety, #30 TAB Prov:FARHAD LEZAMA 10/30/18 Hydroxyzine Hcl* (Atarax*) 25 Mg Tab, 50 MG PO Q8H PRN for ITCHING, #30 TAB Prov:FARHAD LEZAMA. 10/30/18 Pantoprazole* (Pantoprazole*) 40 Mg Tablet.dr, 40 MG PO DAILY, #30 TAB 2 Refills Prov:FARHAD LEZAMA 10/30/18 Allergies Allergies: Coded Allergies: hydrocodone (Unverified Allergy, Unknown, paralysis, 05/29/19) PMhx/Soc History of Surgery: No Anesthesia Reaction: No Hx Neurological Disorder: No Hx Respiratory Disorders: No Hx Cardiac Disorders: Yes Hx Psychiatric Problems: No Hx Miscellaneous Medical Probl: Yes Hx Alcohol Use: No Hx Substance Use: No Hx Tobacco Use: No Physical Exam Vitals Vital Signs Date Temp Pulse Resp B/P (MAP) Pulse Ox O2 O2 Flow FiO2 Time Delivery Rate 05/29/19 98.4 85 20 128/57 97 Room Air 18:57 (80) 05/29/19 98.4 104 20 120/54 97 16:33 (76) Physical Exam Const: No acute distress. Head: Atraumatic. Eyes: Normal Conjunctiva. ENT: Normal External Ears, Nose and Mouth. Neck: Full range of motion. No meningismus. Resp: Clear to auscultation bilaterally. Cardio: Regular rate and rhythm. Abd: Soft, non distended, normal bowel sounds, non tender. Skin: No petechiae or rashes. Back: No midline or flank tenderness. Ext: No cyanosis, or edema. Neur: Awake and alert. No focal deficit Psych: Normal Mood and Affect. Result Diagram: 05/29/19 1639 05/29/19 1639 Results 24 hrs Laboratory Tests Test 05/29/19 16:39 White Blood Count 3.5 10^3/ul Red Blood Count 3.31 10^6/ul Hemoglobin 10.2 g/dl Hematocrit 32.0 % Mean Corpuscular Volume 96.7 fl Mean Corpuscular Hemoglobin 30.8 pg Mean Corpuscular Hemoglobin Concent 31.9 g/dl Red Cell Distribution Width 13.2 % Platelet Count 121 10^3/UL Mean Platelet Volume 10.8 fl Immature Granulocytes % 0.300 % Neutrophils % 46.5 % Lymphocytes % 34.1 % Monocytes % 17.9 % Eosinophils % 0.6 % Basophils % 0.6 % Nucleated Red Blood Cells % 0.0 /100WBC Immature Granulocytes # 0.010 10^3/ul Neutrophils # 1.6 10^3/ul Lymphocytes # 1.2 10^3/ul Monocytes # 0.6 10^3/ul Eosinophils # 0.0 10^3/ul Basophils # 0.0 10^3/ul Nucleated Red Blood Cells # 0.0 10^3/ul Sodium Level 143 mmol/L Potassium Level 4.4 mmol/L Chloride Level 101 mmol/L Carbon Dioxide Level 28 mmol/L Anion Gap 14 Blood Urea Nitrogen 4 mg/dl Creatinine 2.05 mg/dl Est Glomerular Filtrat Rate mL/min 27 mL/min Glucose Level 91 mg/dl Calcium Level 10.1 mg/dl Total Bilirubin 0.4 mg/dl Direct Bilirubin 0.00 mg/dl Indirect Bilirubin 0.4 mg/dl Aspartate Amino Transf (AST/SGOT) 30 IU/L Alanine Aminotransferase (ALT/SGPT) 17 IU/L Alkaline Phosphatase 150 IU/L Total Protein 9.6 g/dl Albumin 5.0 g/dl Globulin 4.60 g/dl Albumin/Globulin Ratio 1.08 Lipase 189 U/L Beta HCG, Quantitative < 2.4 mIU/ml Current Medications Medications Dose Sig/Damaso Start Time Status Last (Trade) Ordered Route PRN Stop Time Admin Dose Reason Admin 40 mg ONCE ONCE 05/29/19 DC 05/29/19 Pantoprazole PO 18:30 18:54 (Protonix 05/29/19 18:31 Tab) Procedures/[place] [id number] Radiology Main Line: [phone] DIAGNOSTIC IMAGING REPORT Patient: HUMERA THOMAS : 1985 Age: 34 Sex: F MR #: [id number] DOS: 05/29/19 1613 Ordering MD: CORNELIUS CLARK MD Location: E/R Room/Bed: PROCEDURE: XR Chest CLINICAL INDICATION: Abdominal Pain . TECHNIQUE: Frontal view of the chest COMPARISON: CHEST 02/22/2019 FINDINGS: The cardiomediastinal silhouette is mildly enlarged. No focal pulmonary consolidations. There is no evidence of significant pleural effusion or pneumothorax. No suspicious osseous lesions. Multiple clips seen overlying the left upper extremity soft tissue. Visualized upper abdomen is unremarkable. IMPRESSION: No radiographic evidence of acute cardiopulmonary disease. RPTAT: KK Physician Shakila Date Time Electronically viewed and signed by Viraj Garcia Physician on 05/29/2019 17:12 HtN/ CC: CORNELIUS CLARK MD [id number] EKG: Read by emergency physician Rate/Rhythm: Normal Sinus Rhythm 80 beats/min QRS, ST, T-waves: No ST elevation, no T inversion Impression: Normal EKG MEDICAL MAKING DECISION: The patient is presenting with chronic abdominal pain, treated with Protonix 40 mg p.o. with good response, is stable for present follow-up The differential diagnoses considered include but are not limited to cholelithiasis, cholecystitis, choledocholithiasis, cholangitis, pancreatitis, hepatitis, gastritis, peptic ulcer disease, gastric ulcer, appendicitis, cystitis, diverticulitis, partial small bowel obstruction. Departure Diagnosis: Primary Impression: Chronic abdominal pain Additional Impression: Pancytopenia Condition: Good Comments She was discharged with Protonix I discussed the findings with the patient. I advised the patient to follow-up with the primary physician in about 1-2 days and referral to GI for further eval, sooner if needed and return if any concern. Disclaimer: Inadvertent spelling and grammatical errors are likely due to EHR/dictation software use and do not reflect on the overall quality of patient care. Also, please note that the electronic time recorded on this note does not necessarily reflect the actual time of the patient encounter. CORNELIUS CLARK MD May 29, 2019 16:17
[2019-05-29 16:33] VITALS: Ht 152.4 cm; Wt 47.7 kg
[2019-05-29] MEDS ORDERED: PANTOPRAZOLE (EC) 40 MG TAB PO ONE (18:30)
[2019-05-29 18:57] VITALS: BP 128/57; PULSE 85; RESP 20
== END 2019-05-29 19:00 | disposition home or self-care (01) ==
LOC: E/R 16:05
DX: R10.84 Generalized abdominal pain (principal); D61.818 Other pancytopenia; G89.29 Other chronic pain; Z79.82 Long term (current) use of aspirin
CPT/HCPCS: 36415; 71045; 80053; 83690; 84702; 85025; 93005

== ENCOUNTER 2019-06-07 16:44 | Emergency (ER) | payer MEDICARE, OTHER ==
[~2019-06-07] VITALS: Ht 152.4 cm; Wt 50.0 kg
[~2019-06-07 16:44] MED LIST changes: -BEN25 PO; -CLON0.1T14 PO; -HYDR-842 PO; -LEVO750T8 PO; -MYCO500T3 PO; -PRED5TAB PO; -SERT25TA83 PO; -TEMA-106 PO
[2019-06-07 16:52] VITALS: Ht 152.4 cm; Wt 50.0 kg
[2019-06-07] MEDS ORDERED: KETOROLAC 30 MG INJ IM STA (16:55)
--- NOTE | 2019-06-07 16:56 | ERD ---
ER Documentation Chief Complaint Chief Complaint HPI This is a 34-year-old woman brought in by EMS after hemodialysis for abdominal pain and cramping similar to multiple previous episodes. Patient states she has not yet seen her pain specialist but that her PMD did schedule her to see one because of the chronic recurrent nature of her abdominal pain. Patient is requesting IV Dilaudid or morphine to help with the pain control. She denies f pre[place] or chills, no blood per rectum, no chest pain or shortness of breath. Patient states that abdominal pain is diffuse and cramping. Patient was transported here by EMS without further complications. ROS All systems reviewed and are negative except as per history of present illness. Medications Home Meds Active Scripts Pantoprazole* (Protonix*) 40 Mg Tablet., 40 MG PO DAILY, #20 TAB Prov:CORNELIUS CLARK MD 05/29/19 Carvedilol* (Carvedilol*) 6.25 Mg Tablet, 6.25 MG PO BID, #60 TAB 2 Refills Prov:CONSTANCE THOMPSON 02/24/19 Aspirin* (Aspirin* (EC)) 81 Mg Tablet., 81 MG PO DAILY, #30 TAB 2 Refills otc Prov:LI GIL MD 01/15/19 Reported Medications Mycophenolate Mofetil* (Cellcept*) 500 Mg Tablet, 500 MG PO QPM, #60 TAB 05/29/19 Mycophenolate Mofetil* (Cellcept*) 500 Mg Tablet, 1000 MG PO QAM, #120 TAB 05/29/19 Sevelamer Carbonate* (Renvela*) 800 Mg Tablet, 0.8 GM PO WITH MEALS, TAB 05/29/19 Nifedipine* (Afeditab CR*) 60 Mg Tablet.er, 60 MG PO DAILY, #30 TAB.SA 05/29/19 Furosemide* (Furosemide*) 20 Mg Tablet, 20 MG PO DAILY, #60 TAB Q MON,WED,FRI,SUN 05/29/19 Pantoprazole* (Pantoprazole*) 40 Mg Tablet.dr, 40 MG PO AC BREAKFAST DINNER, TAB 05/29/19 Hydroxychloroquine Sulfate* (Hydroxychloroquine Sulfate*) 200 Mg Tablet, 200 MG PO DAILY, TAB Q MON,WED,FRI 05/29/19 Lorazepam* (Lorazepam*) 1 Mg Tablet, 1 MG PO BID PRN for ANXIETY, #30 TAB 05/29/19 Allergies Allergies: Coded Allergies: hydrocodone (Unverified Allergy, Unknown, paralysis, 05/29/19) PMhx/Soc History of chronic abdominal pain with multiple negative work-ups, opioid dependence, history of pancreatitis, hypertension, CHF, chronic kidney disease on hemodialysis Tuesday and Tuesday just completed her hemodialysis session today, SLE, gastritis and esophagitis, depression, History of Surgery: No Anesthesia Reaction: No Hx Neurological Disorder: No Hx Respiratory Disorders: No Hx Cardiac Disorders: Yes Hx Psychiatric Problems: No Hx Miscellaneous Medical Probl: Yes (ON DIALYSIS) Hx Alcohol Use: No Hx Substance Use: No Hx Tobacco Use: No Physical Exam Vitals Vital Signs Date Temp Pulse Resp B/P (MAP) Pulse Ox O2 O2 Flow FiO2 Time Delivery Rate 06/07/19 98.3 75 20 118/75 100 Room Air 17:31 (89) 06/07/19 97.9 55 22 108/58 96 16:52 (75) Physical Exam Const: Mild discomfort, afebrile, nontoxic in appearance Resp: Clear to auscultation bilaterally Cardio: Regular rate and rhythm, no murmurs Abd: Soft, non tender, non distended. Normal bowel sounds, no guarding or rigidity, no masses Ext: No cyanosis, or edema, distal pulses equal bilaterally Neur: Awake and alert x3, no focal deficits or facial asymmetry, gait normal Psych: Normal Mood and Affect Results 24 hrs Current Medications Medications Dose Sig/Damaso Start Time Status Last (Trade) Ordered Route PRN Stop Time Admin Dose Reason Admin Ketorolac 30 mg ONCE STAT 06/07/19 DC 06/07/19 Tromethamine IM 16:55 06/07/19 17:12 (Toradol) 16:59 Oxycodone/ 1 tab ONCE ONCE 06/07/19 DC 06/07/19 Acetaminophen PO 17:00 06/07/19 17:12 (Percocet 17:04 (5/ 325)) Procedures/MDM I administered Toradol 30 mg IM x1 and Percocet 1 tablet p.o. for pain control. Patient's vital signs are normal and I repeated her abdominal examination, remains benign and she is feeling better she will be discharged to follow-up with PMD. Differential diagnoses considered, included but not limited to acute coronary syndrome, pulmonary embolism, aortic dissection, abdominal aortic aneurysm, sepsis, stroke, meningitis, encephalitis, pneumonia, appendicitis, chol ecystitis, bowel obstruction, pyelonephritis, nephrolithiasis, cystitis, as well as metabolic, hematologic, and electrolyte abnormalities. As well as abscess, cellulitis, fractures, and dislocations. Patient feels much better at this time, and vital signs are normal, symptoms have improved. I did give strict instructions to return to the ED if symptoms continue or worsen, patient will otherwise follow-up with primary care physician. Patient understood instructions and agreed to plan. Disclaimer: Inadvertent spelling and grammatical errors are likely due to EHR/dictation software use and do not reflect on the overall quality of patient care. Also, please note that the electronic time recorded on this note does not necessarily reflect the actual time of the patient encounter. Departure Diagnosis: Primary Impression: Chronic abdominal pain Condition: FRANCINE Thorpe MD Jun 07, 2019 16:56
[2019-06-07] MEDS ORDERED: OXYCODONE/ACETAMINOPHEN (5/325) TAB PO ONE (17:00)
[2019-06-07 17:31] VITALS: BP 118/75; PULSE 75; RESP 20
== END 2019-06-07 17:32 | disposition home or self-care (01) ==
LOC: E/R 16:44
DX: R10.9 Unspecified abdominal pain (principal); I12.9 Hypertensive chronic kidney disease with stage 1 through stage 4 chronic kidney disease, or unspecified chronic kidney disease; N18.9 Chronic kidney disease, unspecified; I11.0 Hypertensive heart disease with heart failure; I50.9 Heart failure, unspecified; Z79.82 Long term (current) use of aspirin; Z99.2 Dependence on renal dialysis
CPT/HCPCS: 96372; 99284; J1885

== ENCOUNTER 2019-07-28 08:44 | Emergency (ER) | payer MEDICARE, OTHER ==
[~2019-07-28] VITALS: Ht 149.9 cm; Wt 47.1 kg
[~2019-07-28 08:44] MED LIST changes: +ASPI-817 ORAL; +CARAS PO; +LORA-441 PO; +LOSA50TA14 PO; +METO10TA3 ORAL; +METO10TA92 PO; +PRED5TAB PO; +SIME1LIQ MC; +ZOLP5TAB7 PO
[2019-07-28 08:52] VITALS: Ht 149.9 cm; Wt 47.1 kg
[2019-07-28] MEDS ORDERED: LIDOCAINE/MYLANTA 40 ML BTL PO ONE (09:30)
[2019-07-28] MEDS ORDERED: FAMOTIDINE 20 MG INJ IV ONE (09:30)
[2019-07-28] MEDS ORDERED: morphine 4 MG/ML VIAL IV STA (09:54)
[2019-07-28] MEDS ORDERED: morphine 2 MG INJ IV STA (12:26)
[2019-07-28] MEDS ORDERED: ONDANSETRON 4 MG INJ IV STA (12:32)
[2019-07-28 12:50] VITALS: BP 137/93; PULSE 104; RESP 18
== END 2019-07-28 12:52 | disposition home or self-care (01) ==
LOC: E/R 08:44
DX: R10.9 Unspecified abdominal pain (principal); N18.6 End stage renal disease; Z99.2 Dependence on renal dialysis; Z79.82 Long term (current) use of aspirin
CPT/HCPCS: 36415; 71045; 80053; 83605; 83690; 84484; 84702; 85025; 96374; 96375; 96376; 99285; J2270; J2405; 93005